=== PATIENT | female | born 1985 | race Caucasian/White ===

== ENCOUNTER 2022-08-19 10:04 | Outpatient (OUT) | payer OTHER, SELFPAY ==
--- NOTE | 2022-08-19 10:16 | US_ITS ---
[address] [address] Patient Name: DANYELL ROSENBERG MRN: [id number] date: 1985 Sex: F Assigned Patient Location: US Current Patient Location: US Accession/Order Number: [id number] Exam Date: 08/19/2022 10:16 Report Date: 08/21/2022 10:40 At the request of: ROGERS HODGE Procedure: US OB growth EXAMINATION: US OB growth HISTORY: SIZE INCONSISTENT WITH DATES O26.849 COMPARISON: No relevant comparison available. FINDINGS: Heart Rate: 154.3 bpm Number: 1.0 Position: CEPHALIC Amniotic Fluid Volume: 14.8 cm Maximum Vertical Pocket: 4.2 cm cm BIOMETRY: BPD: 8.4 cm cm; 33 weeks 5 days ; 68% HC: 30.3 cmcm; 33 weeks 4 days; 32% AC: 30.1 cm cm; 34 weeks 0 days; 83% FL: 6.3 cm cm; 32 weeks 4 days; 32% EFW: 2228.4 grams; 64% FL/AC: 21.0 FL/BPD: 75.4 HC/AC: 1.0 GESTATIONAL AGE: Age by EDC: 32 weeks 6 days MIL by EDC: 10/08/2022 Age by US: 33 weeks 3 days MIL by US: 10/04/2022 IMPRESSION: 1. Single live intrauterine with growth detailed above. Electronically authenticated by: HALEY RABAGO Date: 08/21/2022 10:40
== END 2022-08-19 10:05 ==
LOC: US 10:08
PROVIDERS: PCP Obstetrics & Gynecology; Visit Provider Obstetrics & Gynecology
DX: O26.893 Other specified pregnancy related conditions, third trimester (principal); Z3A.33 33 weeks gestation of pregnancy
CPT/HCPCS: 76816

== ENCOUNTER 2022-09-11 08:58 | Outpatient (OUT) | payer OTHER, SELFPAY ==
--- NOTE | 2022-09-11 09:01 | US_ITS ---
[place] [id number] Patient Name: DANYELL ROSENBERG MRN: [id number] date: 1985 Sex: F Assigned Patient Location: US Current Patient Location: US Accession/Order Number: [id number] Exam Date: 09/11/2022 09:01 Report Date: 09/11/2022 21:20 At the request of: ROGERS HODGE Procedure: US OB growth EXAMINATION: US OB growth HISTORY: GDM COMPARISON: 08/19/2022 FINDINGS: position: Cephalic presentation, longitudinal lie Amniotic fluid: 12.7 cm, normal Largest fluid pocket: 5.7 cm Heart rate: 156 bpm BPD: 9.1 cm, 36 weeks 6 days, 79% Head circumference: 32.6 cm, 37 weeks 0 days, 39% Abdominal circumference: 33.1 cm, 37 weeks 0 days, 81% Femur length: 7.1 cm, 36 weeks 4 days, 58% Estimated weight: 3051 g, 6 lbs. 12 oz., 72% Clinical age: 36 weeks 1 day Clinical MIL: 10/08/2022 Ultrasound age: 36 weeks 6 days Ultrasound MIL: 10/03/2022 IMPRESSION: Normal interval growth Electronically authenticated by: CARIDAD DOBSON Date: 09/11/2022 21:20
== END 2022-09-11 08:59 | disposition home or self-care (01) ==
LOC: US 08:58
PROVIDERS: PCP Obstetrics & Gynecology; Visit Provider Obstetrics & Gynecology
DX: O09.523 Supervision of elderly multigravida, third trimester (principal); Z86.32 Personal history of gestational diabetes; Z3A.36 36 weeks gestation of pregnancy
CPT/HCPCS: 76816

== ENCOUNTER 2022-09-14 19:54 | Outpatient (REF) | payer OTHER, SELFPAY | END 2022-09-14 19:55 | disposition home or self-care (01) | LOC: LAB 19:54 | PROVIDERS: PCP Obstetrics & Gynecology; Visit Provider Obstetrics & Gynecology | DX: Z34.93 Encounter for supervision of normal pregnancy, unspecified, third trimester (principal) | CPT/HCPCS: 87081 ==

== ENCOUNTER 2022-09-16 10:46 | Outpatient (OUT) | payer OTHER, SELFPAY ==
--- NOTE | 2022-09-16 11:34 | US_ITS ---
[address] [address] Patient Name: DANYELL ROSENBERG MRN: [id number] date: 1985 Sex: F Assigned Patient Location: US Current Patient Location: Accession/Order Number: [id number] Exam Date: 09/16/2022 11:40 Report Date: 09/18/2022 10:21 At the request of: ROGERS HODGE Procedure: US OB BPP w non-stress EXAMINATION: US OB BPP w non-stress HISTORY: MULTIGRAVIDA OF ADVANCED MATERNAL AGE IN THIRD TRIMESTER COMPARISON: No relevant comparison available. TECHNIQUE: Ultrasound biophysical profile was performed in the radiology department. BREATHING MOVEMENTS: 2.0 GROSS BODY MOVEMENTS: 2.0 TONE: 2.0 QUALITATIVE AMNIOTIC FLUID VOLUME: 2.0 PRESENTATION: CEPHALIC HEART RATE: 128.6 bpm bpm. AMNIOTIC FLUID VOLUME: 10.7 cm GESTATIONAL AGE: 36 weeks 6 days CONCLUSION: Total biophysical profile score 8.0. Electronically authenticated by: HALEY RABAGO Date: 09/18/2022 10:21
== END 2022-09-16 10:47 | disposition home or self-care (01) ==
LOC: US 10:48
PROVIDERS: PCP Obstetrics & Gynecology; Visit Provider Obstetrics & Gynecology
DX: O09.523 Supervision of elderly multigravida, third trimester (principal); Z3A.00 Weeks of gestation of pregnancy not specified
CPT/HCPCS: 76818

== ENCOUNTER 2022-09-16 10:58 | Outpatient (OUT) | payer OTHER, SELFPAY | END 2022-09-16 12:10 | disposition home or self-care (01) | LOC: FBCO 10:58 → FBC 10:59 | PROVIDERS: PCP Obstetrics & Gynecology; Visit Provider Obstetrics & Gynecology | DX: O09.529 Supervision of elderly multigravida, unspecified trimester (principal); Z3A.00 Weeks of gestation of pregnancy not specified | CPT/HCPCS: 59025 ==

== ENCOUNTER 2022-09-20 18:39 | Outpatient (OUT) | payer OTHER, SELFPAY ==
[2022-09-20 18:51] VITALS: TEMP 36.3
[2022-09-20 18:52] VITALS: BP 123/68; PULSE 89
== END 2022-09-20 19:20 | disposition home or self-care (01) ==
LOC: FBCO 18:40 → FBC 18:45
PROVIDERS: PCP Obstetrics & Gynecology; Visit Provider Obstetrics & Gynecology
DX: O09.523 Supervision of elderly multigravida, third trimester (principal); O24.419 Gestational diabetes mellitus in pregnancy, unspecified control; Z3A.00 Weeks of gestation of pregnancy not specified
CPT/HCPCS: 59025

== ENCOUNTER 2022-09-23 10:05 | Outpatient (OUT) | payer OTHER, SELFPAY ==
--- NOTE | 2022-09-23 10:14 | US_ITS ---
[address] [address] Patient Name: DANYELL ROSENBERG MRN: [id number] date: 1985 Sex: F Assigned Patient Location: [facility] Current Patient Location: Accession/Order Number: [id number] Exam Date: 09/23/2022 10:14 Report Date: 09/24/2022 01:12 At the request of: ROGERS HODGE Procedure: US OB BPP w non-stress EXAMINATION: US OB BPP w non-stress HISTORY: Multigravida of advanced maternal age in third trimester COMPARISON: Ultrasound biophysical 09/16/2022 TECHNIQUE: Ultrasound biophysical profile was performed in the radiology department. BREATHING MOVEMENTS: 2.0 GROSS BODY MOVEMENTS: 2.0 TONE: 2.0 QUALITATIVE AMNIOTIC FLUID VOLUME: 2.0 PRESENTATION: Cephalic HEART RATE: 146.7 bpm bpm. AMNIOTIC FLUID VOLUME: 11.3 cm GESTATIONAL AGE: 37 weeks 6 days CONCLUSION: Total biophysical profile score 8.0. Electronically authenticated by: HALEY RABAGO Date: 09/24/2022 01:12
[2022-09-23 10:41] VITALS: BP 111/65; PULSE 83
== END 2022-09-23 10:10 | disposition home or self-care (01) ==
LOC: US 10:13 → FBC 10:15
PROVIDERS: PCP Obstetrics & Gynecology; Visit Provider Obstetrics & Gynecology
DX: O09.523 Supervision of elderly multigravida, third trimester (principal); Z3A.37 37 weeks gestation of pregnancy
CPT/HCPCS: 76818

== ENCOUNTER 2022-09-25 08:45 | Outpatient (RCR) | payer OTHER, SELFPAY ==
[2022-10-07 10:34] VITALS: BP 102/55; PULSE 87
== END 2022-10-07 11:52 | disposition home or self-care (01) ==
LOC: FBCO 08:45
PROVIDERS: Visit Provider Obstetrics & Gynecology
DX: O09.523 Supervision of elderly multigravida, third trimester (principal)

== ENCOUNTER 2022-09-27 17:52 | Outpatient (OUT) | payer OTHER, SELFPAY ==
[2022-09-27 18:01] VITALS: BP 130/78; PULSE 99
== END 2022-09-27 18:27 | disposition home or self-care (01) ==
LOC: FBCO 17:52 → FBC 17:55
PROVIDERS: Visit Provider Obstetrics & Gynecology
DX: O09.523 Supervision of elderly multigravida, third trimester (principal)
CPT/HCPCS: 59025

== ENCOUNTER 2022-09-30 09:12 | Outpatient (OUT) | payer OTHER, SELFPAY ==
--- NOTE | 2022-09-30 09:05 | US_ITS ---
[address] [address] Patient Name: DANYELL ROSENBERG MRN: [id number] date: 1985 Sex: F Assigned Patient Location: US Current Patient Location: Accession/Order Number: [id number] Exam Date: 09/30/2022 09:06 Report Date: 10/02/2022 07:45 At the request of: ROGERS HODGE Procedure: US OB BPP w non-stress EXAMINATION: US OB BPP w non-stress HISTORY: MULTIGRAVIDA OF ADVANCED MATERNAL AGE COMPARISON: No relevant comparison available. TECHNIQUE: Ultrasound biophysical profile was performed in the radiology department. FINDINGS: BREATHING MOVEMENTS: 2.0 GROSS BODY MOVEMENTS: 2.0 TONE: 2.0 QUALITATIVE AMNIOTIC FLUID VOLUME: 2.0 PRESENTATION: CEPHALIC HEART RATE: 152.5 bpm H.B./min AMNIOTIC FLUID VOLUME: 12.2 cm cm GESTATIONAL AGE: 38 weeks 6 days CONCLUSION: Total biophysical profile score: 8.0 Electronically authenticated by: CARIDAD DOBSON Date: 10/02/2022 07:45
[2022-09-30 09:28] VITALS: BP 131/67; PULSE 96
== END 2022-09-30 10:11 | disposition home or self-care (01) ==
LOC: US 09:13 → FBC 09:14
PROVIDERS: Visit Provider Obstetrics & Gynecology
DX: O09.523 Supervision of elderly multigravida, third trimester (principal); Z3A.38 38 weeks gestation of pregnancy
CPT/HCPCS: 59025; 76818

== ENCOUNTER 2022-10-04 17:48 | Outpatient (OUT) | payer OTHER, SELFPAY ==
[2022-10-04 17:55] VITALS: BP 100/51; PULSE 92
== END 2022-10-04 18:20 | disposition home or self-care (01) ==
LOC: FBCO 17:48 → FBC 17:49
PROVIDERS: Visit Provider Obstetrics & Gynecology
DX: O09.523 Supervision of elderly multigravida, third trimester (principal)
CPT/HCPCS: 59025

== ENCOUNTER 2022-10-07 14:37 | Outpatient (OUT) | payer OTHER, SELFPAY ==
--- NOTE | 2022-10-07 10:52 | US_ITS ---
[address] [address] Patient Name: DANYELL ROSENBERG MRN: [id number] date: 1985 Sex: F Assigned Patient Location: US Current Patient Location: [facility] Accession/Order Number: [id number] Exam Date: 10/07/2022 10:55 Report Date: 10/09/2022 09:32 At the request of: ROGERS HODGE Procedure: US OB BPP w non-stress EXAMINATION: US OB BPP w non-stress HISTORY: ADVANCED MATERNAL AGE COMPARISON: Ultrasound OB biophysical 09/30/2022 TECHNIQUE: Ultrasound biophysical profile was performed in the radiology department. BREATHING MOVEMENTS: 2 GROSS BODY MOVEMENTS: 2 TONE: 2 QUALITATIVE AMNIOTIC FLUID VOLUME: 2 PRESENTATION: CEPHALIC HEART RATE: 145.2 bpm bpm. AMNIOTIC FLUID VOLUME: 8.6 cm GESTATIONAL AGE: 39 weeks 6 days CONCLUSION: 1. Total biophysical profile score 8. 2. Amniotic fluid volume approaches lower limits of normal. Electronically authenticated by: HALEY RABAGO Date: 10/09/2022 09:32
== END 2022-10-07 14:38 | disposition home or self-care (01) ==
LOC: US 10-11 14:37
PROVIDERS: Visit Provider Obstetrics & Gynecology
DX: O09.523 Supervision of elderly multigravida, third trimester (principal); Z86.32 Personal history of gestational diabetes; Z3A.39 39 weeks gestation of pregnancy
CPT/HCPCS: 76818

== ENCOUNTER 2022-10-09 05:16 | Observation (INO) | payer OTHER, SELFPAY ==
[2022-10-09 05:44] VITALS: BP 106/51; PULSE 89
[2022-10-09 05:46] VITALS: RESP 16
[2022-10-09 05:49] LABS: Hematocrit 30.2 % (36.0-48.0); Mean Corpuscular HGB Conc 33.1 g/dL (29.9-35.2); Mean Corpuscular Hemoglobin 25.1 pg (26.7-34.0); Mean Corpuscular Volume 75.9 fL (81.0-99.0); Mean Platelet Volume 11.2 fL (9.5-13.5); Platelet Count 284 10^3/uL (150-450); Red Blood Count 3.98 10^6/uL (4.20-5.40); Red Cell Distribution Width 14.6 % (11.0-15.0); White Blood Count 7.9 10^3/uL (4.0-11.0)
[2022-10-09 05:57] LABS: Amphetamine Screen Urine NEGATIVE (NEGATIVE); Barbiturates Screen Urine NEGATIVE (NEGATIVE); Benzodiazepines Screen Urine NEGATIVE (NEGATIVE); Buprenorphine Screen Urine NEGATIVE (NEGATIVE); Cannabinoid Screen Urine NEGATIVE (NEGATIVE); Cocaine Screen Urine NEGATIVE (NEGATIVE); Methadone Screen Urine NEGATIVE (NEGATIVE); Methamphetamines Screen Urine NEGATIVE (NEGATIVE); Opiate Screen Urine NEGATIVE (NEGATIVE); Oxycodone Screen Urine NEGATIVE (NEGATIVE); Phencyclidine Screen Urine NEGATIVE (NEGATIVE); Tricyclic Antidepressant Urine NEGATIVE (NEGATIVE)
[2022-10-09] MEDS: 0.9 % SODIUM CHLORIDE 1,000 ML 125 ML IV (06:08)
--- NOTE | 2022-10-09 08:00 | W.PC.ACHO ---
Registration Status: ADM IN Primary Language: Kazakh Preferred Language: Kazakh Report given 0745. Active Medications Generic Name Dose Route Start Last Admin Trade Name Lena PRN Reason Stop Dose Admin Carboprost Tromethamine 250 mcg 10/09/22 05:22 Carboprost Tromethamine 250 Mcg/Ml 1 Ml Vial IM Q15M PRN Bleeding Sodium Chloride 1,000 mls @ 125 mls/hr 10/09/22 05:30 10/09/22 06:08 Sodium Chloride 0.9% 1,000 Ml IV 125 mls/hr .Q8H EMILY Administration Oxytocin 20 unit/ Sodium 1,002 mls @ 125 mls/hr 10/09/22 05:30 Chloride IV Q8H PRN Physician order Protocol Lidocaine 5 ml 10/09/22 05:22 Lidocaine Viscous 2% 15 Ml Topical Solution TOPICAL .prn PRN Pain Lidocaine 1 ml 10/09/22 05:22 Lidocaine Hcl 1% 200 Mg/20 Ml Mdv INJ .PRN PRN Pain Methylergonovine Maleate 0.2 mg 10/09/22 05:22 Methylergonovine Maleate 0.2 Mg Tablet PO Q4H PRN Uterine Contractility/Contract Methylergonovine Maleate 0.2 mg 10/09/22 05:22 Methylergonovine Maleate 0.2 Mg/Ml Ampule IM ONCE PRN Uterine Contractility/Contract Misoprostol 600 mcg 10/09/22 05:22 Misoprostol 100 Mcg Tablet PO ONCE PRN Uterine Bleeding Misoprostol 800 mcg 10/09/22 05:22 Misoprostol 100 Mcg Tablet SL ONCE PRN Uterine Bleeding Misoprostol 1,000 mcg 10/09/22 05:22 Misoprostol 100 Mcg Tablet [place] ONCE PRN Uterine Bleeding Ondansetron HCl 4 mg 10/09/22 05:22 Ondansetron Pf 4 Mg/2 Ml Vial IV Q6H PRN Nausea And Vomiting Ondansetron HCl 4 mg 10/09/22 05:22 Ondansetron 4 Mg Rapdis Tablet SL Q6H PRN Nausea And Vomiting Oxytocin 10 unit 10/09/22 05:22 Oxytocin 100 Unit/10 Ml Vial IM ONCE PRN Uterine Bleeding Diet Category Date Time Status Regular Consistency Diet Diet 10/09/22 Breakfast Active Consults Category Date Time Status Consult to Anesthesiology Routine Cons 10/09/22 Ordered Neurology Patient orientation (short person,place,time,situation list)
--- NOTE | 2022-10-09 10:11 | PC.NURSE ---
0730 Report received, pt relaxing in bed on side. Discussed plan and different options for monitoring and possible monitoring while upright if on pitocin
--- NOTE | 2022-10-09 10:15 | PC.NURSE ---
1000 IV NS infused, iv to saline lock and pt into whirlpool tub. water temp 100.9. states feeling occasional ctxs
[2022-10-09 10:56] VITALS: BP 98/53; PULSE 96
--- NOTE | 2022-10-09 12:50 | PC.NURSE ---
1235 pt discusses plan of care and opts for discharge, pt states not having ctxs, saline lock removed and scheduled for BPP and NSt
== END 2022-10-09 14:20 | disposition home or self-care (01) ==
LOC: FBC 13:12
PROVIDERS: Admitting Provider Obstetrics & Gynecology; Visit Provider Obstetrics & Gynecology
DX: O47.9 False labor, unspecified (principal); Z3A.00 Weeks of gestation of pregnancy not specified
CPT/HCPCS: 36415; 80307; 85027; 86850; 86900; 86901; G0378; G0379

== ENCOUNTER 2022-10-12 06:03 | Inpatient (IN) | payer OTHER, SELFPAY ==
[2022-10-12] VITALS (22 sets, daily range): BP systolic 108–135; BP diastolic 57–89; PULSE 64–96; RESP 16–18; TEMP 35.3–36.8
--- NOTE | 2022-10-12 07:14 | W.PC.ACHO ---
Registration Status: ADM IN Primary Language: Norwegian Preferred Language: Norwegian Report given 0700. Active Medications Generic Name Dose Route Start Last Admin Trade Name Lena PRN Reason Stop Dose Admin Carboprost Tromethamine 250 mcg 10/12/22 06:06 Carboprost Tromethamine 250 Mcg/Ml 1 Ml Vial IM Q15M PRN Bleeding Sodium Chloride 1,000 mls @ 125 mls/hr 10/12/22 06:15 Sodium Chloride 0.9% 1,000 Ml IV .Q8H EMILY Oxytocin 20 unit/ Sodium 1,002 mls @ 125 mls/hr 10/12/22 07:15 Chloride IV 10/12/22 15:14 Q8H PRN Delivery Protocol Lidocaine 5 ml 10/12/22 06:06 Lidocaine Viscous 2% 15 Ml Topical Solution TOPICAL DIRECTED PRN Pain Lidocaine 1 ml 10/12/22 06:06 Lidocaine Hcl 1% 200 Mg/20 Ml Mdv INJ DIRECTED PRN Pain Methylergonovine Maleate 0.2 mg 10/12/22 06:06 Methylergonovine Maleate 0.2 Mg Tablet PO Q4H PRN Uterine Contractility/Contract Methylergonovine Maleate 0.2 mg 10/12/22 06:06 Methylergonovine Maleate 0.2 Mg/Ml Ampule IM ONCE PRN Uterine Contractility/Contract Misoprostol 600 mcg 10/12/22 06:06 Misoprostol 100 Mcg Tablet PO ONCE PRN Uterine Bleeding Misoprostol 800 mcg 10/12/22 06:06 Misoprostol 100 Mcg Tablet SL ONCE PRN Uterine Bleeding Misoprostol 1,000 mcg 10/12/22 06:06 Misoprostol 100 Mcg Tablet FL ONCE PRN Uterine Bleeding Ondansetron HCl 4 mg 10/12/22 06:06 Ondansetron Pf 4 Mg/2 Ml Vial IV Q6H PRN Nausea And Vomiting Ondansetron HCl 4 mg 10/12/22 06:06 Ondansetron 4 Mg Rapdis Tablet SL Q6H PRN Nausea And Vomiting Oxytocin 10 unit 10/12/22 06:06 Oxytocin 100 Unit/10 Ml Vial IM ONCE PRN Uterine Bleeding Diet Category Date Time Status Regular Consistency Diet Diet 10/12/22 Breakfast Active Neurology Patient orientation (short person,place,time,situation list)
--- NOTE | 2022-10-12 09:22 | PC.NURSE ---
[address] snell in room, discusses plan of care and pt agrees to AROM with few hours of natural stimulation of labor with option for pitocin if labor does not ensue, no ctxs currently
--- NOTE | 2022-10-12 09:24 | PC.NURSE ---
0830 on birthing ball and using electric breast pump to stimulate labor, denies needs
[2022-10-12] MEDS: CALCIUM CARBONATE 500 MG (200MG ELEMENTAL) TAB CHEW PO (14:39)
[2022-10-12] MEDS: 0.9 % SODIUM CHLORIDE 1,000 ML 1000 ML IV (17:22)
--- NOTE | 2022-10-12 19:30 | W.PC.ACHO ---
Registration Status: ADM IN Primary Language: Citizen Of [place] Preferred Language: Citizen Of [place] Active Medications report given Generic Name Dose Route Start Last Admin Trade Name Lena PRN Reason Stop Dose Admin Calcium Carbonate 500 mg 10/12/22 15:00 10/12/22 14:39 Calcium Carbonate 500 Mg (200mg Elemental) Tab Chew PO 500 mg TID PRN Administration Abdominal Distention Carboprost Tromethamine 250 mcg 10/12/22 06:06 Carboprost Tromethamine 250 Mcg/Ml 1 Ml Vial IM Q15M PRN Bleeding Sodium Chloride 1,000 mls @ 125 mls/hr 10/12/22 06:15 Sodium Chloride 0.9% 1,000 Ml IV .Q8H EMILY Lidocaine 5 ml 10/12/22 06:06 Lidocaine Viscous 2% 15 Ml Topical Solution TOPICAL DIRECTED PRN Pain Lidocaine 1 ml 10/12/22 06:06 Lidocaine Hcl 1% 200 Mg/20 Ml Mdv INJ DIRECTED PRN Pain Methylergonovine Maleate 0.2 mg 10/12/22 06:06 Methylergonovine Maleate 0.2 Mg Tablet PO Q4H PRN Uterine Contractility/Contract Methylergonovine Maleate 0.2 mg 10/12/22 06:06 Methylergonovine Maleate 0.2 Mg/Ml Ampule IM ONCE PRN Uterine Contractility/Contract Misoprostol 600 mcg 10/12/22 06:06 Misoprostol 100 Mcg Tablet PO ONCE PRN Uterine Bleeding Misoprostol 800 mcg 10/12/22 06:06 Misoprostol 100 Mcg Tablet SL ONCE PRN Uterine Bleeding Misoprostol 1,000 mcg 10/12/22 06:06 Misoprostol 100 Mcg Tablet [place] ONCE PRN Uterine Bleeding Ondansetron HCl 4 mg 10/12/22 06:06 Ondansetron Pf 4 Mg/2 Ml Vial IV Q6H PRN Nausea And Vomiting Ondansetron HCl 4 mg 10/12/22 06:06 Ondansetron 4 Mg Rapdis Tablet SL Q6H PRN Nausea And Vomiting Oxytocin 10 unit 10/12/22 06:06 Oxytocin 100 Unit/10 Ml Vial IM ONCE PRN Uterine Bleeding Diet Category Date Time Status Regular Consistency Diet Diet 10/12/22 Breakfast Active Neurology Patient orientation (short person,place,time,situation list) Respiratory Lung sounds [Throughout] clear Cardiology Heart Sounds Strong
--- NOTE | 2022-10-12 20:22 | PM.OBPRCVD ---
Procedure Intrapartal events: None Induction method: artificial rupture of membranes Delivery augmentation: rupture of membranes and pitocin Delivery monitor: external FHT and external uterine Route of delivery: Episiotomy Description: none Laceration description: none Estimated blood loss (mL): 200 Anesthesia type: None Disposition: floor Infant Delivery date: 10/12/22 Gender: female presentation: vertex Placental delivery description: Spontaneous cord description: 3 Vessels
[2022-10-12] MEDS: IBUPROFEN 600 MG TABLET PO (21:33)
[2022-10-13 03:42] VITALS: BP 136/77; PULSE 56; RESP 16; TEMP 37.3
[2022-10-13] MEDS: IBUPROFEN 600 MG TABLET PO ×4 (03:46→22:31)
[2022-10-13] MEDS: CALCIUM CARBONATE 500 MG (200MG ELEMENTAL) TAB CHEW PO (03:46)
[2022-10-13 06:20] LABS: Basophils Percent Auto 0.1 % (0.2-2.0); Hematocrit 28.6 % (36.0-48.0); Hemoglobin 9.1 g/dL (12.0-16.0); Immature Granulocytes Abs Auto 0.08 10^3/uL (0.00-0.03); Immature Granulocytes Pct Auto 0.5 % (0.0-0.5); Lymphocytes Absolute Auto 1.4 10^3/uL (1.2-3.8); Lymphocytes Percent Auto 9.1 % (20.5-60.0); Mean Corpuscular HGB Conc 31.8 g/dL (29.9-35.2); Mean Corpuscular Hemoglobin 24.7 pg (26.7-34.0); Mean Corpuscular Volume 77.7 fL (81.0-99.0); Mean Platelet Volume 11.3 fL (9.5-13.5); Monocytes Absolute Auto 0.9 10^3/uL (0.3-0.8); Monocytes Percent Auto 5.5 % (1.7-12.0); Neutrophils Absolute Auto 13.4 10^3/uL (1.4-6.5); Neutrophils Percent Auto 84.8 % (43.0-75.0); Platelet Count 268 10^3/uL (150-450); Red Blood Count 3.68 10^6/uL (4.20-5.40); Red Cell Distribution Width 14.9 % (11.0-15.0); White Blood Count 15.8 10^3/uL (4.0-11.0)
--- NOTE | 2022-10-13 07:29 | W.PC.ACHO ---
Registration Status: ADM IN Primary Language: Luxembourger Preferred Language: Luxembourger Report given to Edgar Ndiaye RN Active Medications Generic Name Dose Route Start Last Admin Trade Name Freq PRN Reason Stop Dose Admin Acetaminophen 650 mg 10/12/22 20:19 Acetaminophen 325 Mg Tablet PO Q6H PRN Mild Pain Al Hydroxide/Mg Hydroxide 2,400 mg 10/12/22 20:19 Magnesium Hydroxide 2,400 Mg/10 Ml Oral.Susp PO Q6H PRN Dyspepsia Benzocaine/Menthol 1 applic 10/12/22 20:19 Benzocaine/Menthol 85 Gram Bottle TOPICAL DIRECTED PRN Pain Calcium Carbonate 500 mg 10/12/22 15:00 10/13/22 03:46 Calcium Carbonate 500 Mg (200mg Elemental) Tab Chew PO 500 mg TID PRN Administration Abdominal Distention Carboprost Tromethamine 250 mcg 10/12/22 06:06 Carboprost Tromethamine 250 Mcg/Ml 1 Ml Vial IM Q15M PRN Bleeding Docusate Sodium 100 mg 10/13/22 09:00 Docusate Sodium 100 Mg Capsule PO BID EMILY Sodium Chloride 1,000 mls @ 125 mls/hr 10/12/22 06:15 Sodium Chloride 0.9% 1,000 Ml IV .Q8H EMILY Ibuprofen 600 mg 10/12/22 20:19 10/13/22 03:46 Ibuprofen 600 Mg Tablet PO 600 mg Q6H PRN Administration Moderate Pain Lidocaine 5 ml 10/12/22 06:06 Lidocaine Viscous 2% 15 Ml Topical Solution TOPICAL DIRECTED PRN Pain Lidocaine 1 ml 10/12/22 06:06 Lidocaine Hcl 1% 200 Mg/20 Ml Mdv INJ DIRECTED PRN Pain Methylergonovine Maleate 0.2 mg 10/12/22 06:06 Methylergonovine Maleate 0.2 Mg Tablet PO Q4H PRN Uterine Contractility/Contract Methylergonovine Maleate 0.2 mg 10/12/22 06:06 Methylergonovine Maleate 0.2 Mg/Ml Ampule IM ONCE PRN Uterine Contractility/Contract Misoprostol 600 mcg 10/12/22 06:06 Misoprostol 100 Mcg Tablet PO ONCE PRN Uterine Bleeding Misoprostol 800 mcg 10/12/22 06:06 Misoprostol 100 Mcg Tablet SL ONCE PRN Uterine Bleeding Misoprostol 1,000 mcg 10/12/22 06:06 Misoprostol 100 Mcg Tablet [place] ONCE PRN Uterine Bleeding Ondansetron HCl 4 mg 10/12/22 06:06 Ondansetron Pf 4 Mg/2 Ml Vial IV Q6H PRN Nausea And Vomiting Ondansetron HCl 4 mg 10/12/22 06:06 Ondansetron 4 Mg Rapdis Tablet SL Q6H PRN Nausea And Vomiting Oxytocin 10 unit 10/12/22 06:06 Oxytocin 100 Unit/10 Ml Vial IM ONCE PRN Uterine Bleeding Senna 17.2 mg 10/12/22 20:00 Sennosides 8.6 Mg Tablet PO QHS PRN Constipation Simethicone 80 mg 10/12/22 20:19 Simethicone 80 Mg Tab.Chew PO QID PRN Abdominal Distention Temazepam 15 mg 10/12/22 20:00 Temazepam 15 Mg Capsule PO BEDTIME PRN Sleep Witch Yessy/Glycerin 1 each 10/12/22 20:19 Glycerin/Witch Yessy 1 Each Jar TOPICAL DIRECTED PRN Pain Diet Category Date Time Status Regular Consistency Diet Diet 10/12/22 Breakfast Active Regular Consistency Diet Diet 10/13/22 Breakfast Active Neurology Mary coma scale total score 15 Respiratory Lung sounds [Throughout] clear Lung sounds [Throughout] clear Oxygen Delivery Method Room Air Cardiology Heart Sounds Strong
[2022-10-13 08:46] VITALS: BP 120/70; PULSE 72; RESP 16; TEMP 36.7
[2022-10-13] MEDS: DOCUSATE SODIUM 100 MG CAPSULE PO ×2 (08:46→22:31)
--- NOTE | 2022-10-13 12:14 | PM.OBPN ---
OB - PN: Subj Subjective Patient comments: no complaints Kegley feeding status: exclusively Exam Constitutional Vital Signs, click to edit/add: Last Vital Signs Temp 98.1 F 10/13/22 08:46 Pulse 72 10/13/22 08:46 Resp 16 10/13/22 08:46 BP 120/70 10/13/22 08:46 O2 Del Method Room Air 10/13/22 08:46 Common normals: no apparent distress General appearance: cooperative and comfortable Orientation/consciousness: Yes awake and Yes oriented to person HENMT Common normals: normocephalic and head/scalp atraumatic Eye Common normals: PERRL Pupil: accommodation reflex normal Neck & C-Spine Common normals: full ROM Respiratory Common normals: normal respiratory effort Auscultation: clear to auscultation bilaterally Back & Pelvis Common normals: no CVA tenderness Extremity Common normals: full ROM Neuro Common normals: CN's II-XII intact bilaterally Sensorium/orientation: awake, alert and oriented to person Psych Common normals: mental status grossly normal and thought process normal Results Labs Labs: Short CBC 10/13/22 Range/Units 06:08 WBC 15.8 H (4.0-11.0) 10^3/uL Hgb 9.1 L (12.0-16.0) g/dL Hct 28.6 L (36.0-48.0) % Plt Count 268 (150-450) 10^3/uL OB - PN: A/P Plan - Vaginal Delivery Plan: routine care Time Spent with Patient Time: Total time spent is greater than 50% in coordination of care (as documented) at patient's floor/unit and/or counseling patient: Total time spent with greater than 50% in coordination of care (as documented) at patient's floor/unit and/or counseling patient: less than 15 minutes
[2022-10-13 16:09] VITALS: BP 124/70; PULSE 71; RESP 18; TEMP 36.8
--- NOTE | 2022-10-13 19:27 | W.PC.ACHO ---
Registration Status: ADM IN Primary Language: Serbian Preferred Language: Serbian Active Medications Generic Name Dose Route Start Last Admin Trade Name Lena PRN Reason Stop Dose Admin Acetaminophen 650 mg 10/12/22 20:19 Acetaminophen 325 Mg Tablet PO Q6H PRN Mild Pain Al Hydroxide/Mg Hydroxide 2,400 mg 10/12/22 20:19 Magnesium Hydroxide 2,400 Mg/10 Ml Oral.Susp PO Q6H PRN Dyspepsia Benzocaine/Menthol 1 applic 10/12/22 20:19 Benzocaine/Menthol 85 Gram Bottle TOPICAL DIRECTED PRN Pain Calcium Carbonate 500 mg 10/12/22 15:00 10/13/22 03:46 Calcium Carbonate 500 Mg (200mg Elemental) Tab Chew PO 500 mg TID PRN Administration Abdominal Distention Carboprost Tromethamine 250 mcg 10/12/22 06:06 Carboprost Tromethamine 250 Mcg/Ml 1 Ml Vial IM Q15M PRN Bleeding Docusate Sodium 100 mg 10/13/22 09:00 10/13/22 08:46 Docusate Sodium 100 Mg Capsule PO 100 mg BID EMILY Administration Sodium Chloride 1,000 mls @ 125 mls/hr 10/12/22 06:15 Sodium Chloride 0.9% 1,000 Ml IV .Q8H EMILY Ibuprofen 600 mg 10/12/22 20:19 10/13/22 16:09 Ibuprofen 600 Mg Tablet PO 600 mg Q6H PRN Administration Moderate Pain Lidocaine 5 ml 10/12/22 06:06 Lidocaine Viscous 2% 15 Ml Topical Solution TOPICAL DIRECTED PRN Pain Lidocaine 1 ml 10/12/22 06:06 Lidocaine Hcl 1% 200 Mg/20 Ml Mdv INJ DIRECTED PRN Pain Methylergonovine Maleate 0.2 mg 10/12/22 06:06 Methylergonovine Maleate 0.2 Mg Tablet PO Q4H PRN Uterine Contractility/Contract Methylergonovine Maleate 0.2 mg 10/12/22 06:06 Methylergonovine Maleate 0.2 Mg/Ml Ampule IM ONCE PRN Uterine Contractility/Contract Misoprostol 600 mcg 10/12/22 06:06 Misoprostol 100 Mcg Tablet PO ONCE PRN Uterine Bleeding Misoprostol 800 mcg 10/12/22 06:06 Misoprostol 100 Mcg Tablet SL ONCE PRN Uterine Bleeding Misoprostol 1,000 mcg 10/12/22 06:06 Misoprostol 100 Mcg Tablet [place] ONCE PRN Uterine Bleeding Ondansetron HCl 4 mg 10/12/22 06:06 Ondansetron Pf 4 Mg/2 Ml Vial IV Q6H PRN Nausea And Vomiting Ondansetron HCl 4 mg 10/12/22 06:06 Ondansetron 4 Mg Rapdis Tablet SL Q6H PRN Nausea And Vomiting Oxytocin 10 unit 10/12/22 06:06 Oxytocin 100 Unit/10 Ml Vial IM ONCE PRN Uterine Bleeding Senna 17.2 mg 10/12/22 20:00 Sennosides 8.6 Mg Tablet PO QHS PRN Constipation Simethicone 80 mg 10/12/22 20:19 Simethicone 80 Mg Tab.Chew PO QID PRN Abdominal Distention Temazepam 15 mg 10/12/22 20:00 Temazepam 15 Mg Capsule PO BEDTIME PRN Sleep Witch Yessy/Glycerin 1 each 10/12/22 20:19 Glycerin/Witch Yessy 1 Each Jar TOPICAL DIRECTED PRN Pain Diet Category Date Time Status Regular Consistency Diet Diet 10/13/22 Breakfast Active Neurology [place] coma scale total score 15 Respiratory Lung sounds [Throughout] clear Lung sounds [Throughout] clear Oxygen Delivery Method Room Air Oxygen Delivery Method Room Air Oxygen Delivery Method Room Air
[2022-10-13 22:27] VITALS: BP 100/50; PULSE 83
--- NOTE | 2022-10-14 07:14 | W.PC.ACHO ---
Registration Status: ADM IN Primary Language: Tristanian Preferred Language: Tristanian Active Medications Generic Name Dose Route Start Last Admin Trade Name Lena PRN Reason Stop Dose Admin Acetaminophen 650 mg 10/12/22 20:19 Acetaminophen 325 Mg Tablet PO Q6H PRN Mild Pain Al Hydroxide/Mg Hydroxide 2,400 mg 10/12/22 20:19 Magnesium Hydroxide 2,400 Mg/10 Ml Oral.Susp PO Q6H PRN Dyspepsia Benzocaine/Menthol 1 applic 10/12/22 20:19 Benzocaine/Menthol 85 Gram Bottle TOPICAL DIRECTED PRN Pain Calcium Carbonate 500 mg 10/12/22 15:00 10/13/22 03:46 Calcium Carbonate 500 Mg (200mg Elemental) Tab Chew PO 500 mg TID PRN Administration Abdominal Distention Carboprost Tromethamine 250 mcg 10/12/22 06:06 Carboprost Tromethamine 250 Mcg/Ml 1 Ml Vial IM Q15M PRN Bleeding Docusate Sodium 100 mg 10/13/22 09:00 10/13/22 22:31 Docusate Sodium 100 Mg Capsule PO 100 mg BID EMILY Administration Sodium Chloride 1,000 mls @ 125 mls/hr 10/12/22 06:15 Sodium Chloride 0.9% 1,000 Ml IV .Q8H EMILY Ibuprofen 600 mg 10/12/22 20:19 10/13/22 22:31 Ibuprofen 600 Mg Tablet PO 600 mg Q6H PRN Administration Moderate Pain Lidocaine 5 ml 10/12/22 06:06 Lidocaine Viscous 2% 15 Ml Topical Solution TOPICAL DIRECTED PRN Pain Lidocaine 1 ml 10/12/22 06:06 Lidocaine Hcl 1% 200 Mg/20 Ml Mdv INJ DIRECTED PRN Pain Methylergonovine Maleate 0.2 mg 10/12/22 06:06 Methylergonovine Maleate 0.2 Mg Tablet PO Q4H PRN Uterine Contractility/Contract Methylergonovine Maleate 0.2 mg 10/12/22 06:06 Methylergonovine Maleate 0.2 Mg/Ml Ampule IM ONCE PRN Uterine Contractility/Contract Misoprostol 600 mcg 10/12/22 06:06 Misoprostol 100 Mcg Tablet PO ONCE PRN Uterine Bleeding Misoprostol 800 mcg 10/12/22 06:06 Misoprostol 100 Mcg Tablet SL ONCE PRN Uterine Bleeding Misoprostol 1,000 mcg 10/12/22 06:06 Misoprostol 100 Mcg Tablet MD ONCE PRN Uterine Bleeding Ondansetron HCl 4 mg 10/12/22 06:06 Ondansetron Pf 4 Mg/2 Ml Vial IV Q6H PRN Nausea And Vomiting Ondansetron HCl 4 mg 10/12/22 06:06 Ondansetron 4 Mg Rapdis Tablet SL Q6H PRN Nausea And Vomiting Oxytocin 10 unit 10/12/22 06:06 Oxytocin 100 Unit/10 Ml Vial IM ONCE PRN Uterine Bleeding Senna 17.2 mg 10/12/22 20:00 Sennosides 8.6 Mg Tablet PO QHS PRN Constipation Simethicone 80 mg 10/12/22 20:19 Simethicone 80 Mg Tab.Chew PO QID PRN Abdominal Distention Temazepam 15 mg 10/12/22 20:00 Temazepam 15 Mg Capsule PO BEDTIME PRN Sleep Witch Yessy/Glycerin 1 each 10/12/22 20:19 Glycerin/Witch Yessy 1 Each Jar TOPICAL DIRECTED PRN Pain Diet Category Date Time Status Regular Consistency Diet Diet 10/13/22 Breakfast Active Neurology [place] coma scale total score 15 Respiratory Lung sounds [Throughout] clear Lung sounds [Throughout] clear Oxygen Delivery Method Room Air Oxygen Delivery Method Room Air Oxygen Delivery Method Room Air Cardiology Heart Sounds Regular Renal Bladder Pattern Continent
[2022-10-14 08:26] VITALS: BP 125/85; PULSE 82
[2022-10-14 08:30] VITALS: BP 125/85; PULSE 82; RESP 16; TEMP 36.6
[2022-10-14] MEDS: IBUPROFEN 600 MG TABLET PO (08:30)
[2022-10-14] MEDS: DOCUSATE SODIUM 100 MG CAPSULE PO (08:30)
--- NOTE | 2022-10-14 09:42 | PM.OBDS ---
DS: Providers Provider Date of admission: 10/12/22 06:03 Primary care physician: Non-Staff Physician, Admitting clinician: You Ramirez Attending physician on discharge: Rosalba Aldrich DS: Diagnosis Discharge Diagnosis (1) Normal vaginal delivery: Assessment and plan: uncomplicated vaginal delivery. normal course. no issues or complaints Plan instructions given follow up in six weeks for post appointment call in interim for problem or concern OB - DS: Summary Hospital Course Hospital Course: uncomplicated Time spent discussing smoking cessation with patient: 3 to 10 minutes Peripartum Data - Vaginal Delivery Laceration description: none Complications complications: none Infant Delivery method: spontaneous vaginal delivery Gender: female Discharge plan: home Status at Discharge Functional status at discharge: independent ambulation Overall status at discharge: patient is back to baseline Time Spent with Patient Time attestation: Total time spent providing and/or coordinating discharge services: Time spent: less than 30 minutes Exam Narrative Exam Narrative: nonfocal medical exam breasts soft, is breast feeding no repair normal vital signs Constitutional Vital Signs, click to edit/add: Last Vital Signs Temp 97.9 F 10/14/22 08:30 Pulse 82 10/14/22 08:30 Resp 16 10/14/22 08:30 BP 125/85 10/14/22 08:30 O2 Del Method Room Air 10/14/22 08:30 Discharge Plan Discharge Disposition: Home, Self-Care Condition: Good Assessment: normal clinical exam, requesting discharge, ready for discharge Plan of Treatment: follow up in six weeks for post exam sports bra 24/ if decides to stop breast feeding no swimming 4 weeks no intercourse 6 weeks general RSV and Covid precautions baby to peds within the week call for problem or concern Discharge Medications: Continued Complete 14 mg iron- 400 mcg tablet 1 tab PO DAILY Activity: resume usual activities as tolerated Diet: regular diet Patient Instructions: Vaginal Delivery (DC) Activity Restrictions/Additional Instructions: see above Forms: Portal Instructions Discharge location: home
== END 2022-10-14 11:00 | disposition home or self-care (01) | DRG 807 ==
PROVIDERS: Admitting Provider Obstetrics & Gynecology; Visit Provider Obstetrics & Gynecology
DX: O80 Encounter for full-term uncomplicated delivery (principal); Z37.0 Single live birth; Z86.32 Personal history of gestational diabetes; Z3A.00 Weeks of gestation of pregnancy not specified
CPT/HCPCS: 36415; 59050; 59410; 85025; 96374

== ENCOUNTER 2022-10-16 08:16 | Outpatient (RCR) | payer OTHER, SELFPAY ==
[2022-10-16 12:55] VITALS: BP 120/83; PULSE 80; RESP 18; TEMP 36.9; O2SAT 98
--- NOTE | 2022-10-16 12:57 | PC.NURSE ---
Pt noted to have large diameter nipple 28-30mm. Infant has difficulty taking entire nipple in for deep latch. Worked on laid back positioning and deeper latch achieved. Mom states has had difficulty with past children latching well also. States will continue to pump and protect supply. Will work for better latching until able to latch well on her own.
== END 2022-10-16 10:25 | disposition home or self-care (01) ==
LOC: FBCO 08:16
PROVIDERS: Visit Provider Obstetrics & Gynecology
DX: Z39.2 Encounter for routine postpartum follow-up (principal)

== ENCOUNTER 2022-10-18 08:07 | Outpatient (RCR) | payer OTHER, SELFPAY ==
--- NOTE | 2022-10-18 10:47 | PC.NURSE ---
Moira, and 6 day old daughter Delon arrive for support and weight check. Moira relates that latching is a bit easier in laid back position as baby is able to latch deeper with aid of gravity. Relates infant is still sleepy at the breast and has slow feeds of over 20-30 min per breast. Infant often not interested in sustaining latch at 2nd breast. Baby had 1 stool since 10/16/2022 visit, dark mustard/brown in color and large amount. Mom reports 5-6 wets yesterday and feels better latch has increased voids. weight is obtained and down 1.5 oz (40gms) from 10/16/2022. Mom reports frequent feeds on demand or at least every 2 hours. One 4 hour stretch taken during night when infant slept. Infant awake and alert, rooting on hands and interested in feed. LC with gloved finger assesses mouth and oral structures. 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 Infant holds tongue to floor of mouth when crying, outer edge/tip of tongue does curl upward. White residue/milk protein noted on back 2/3rds of tongue. attempts to extend tongue past gums with stimulation but does not extend past lips. Does not lateralized tongue well with gum stimulation. Palate is high arched. Mom familiar with tongue tie and impact on as 11 year old son struggled with and weaned at 3 months due to continued difficulty. Discussed pediatric dentist evaluation and referral as well of importance of suck exercises pre and post procedure as needed. Recommended body work with chiropractor in conjunction with oral therapy. Father asks multiple questions about oral restrictions and releases. Handouts given and questions answered to satisfaction. Parents engaged and interested in follow up referrals. Will return to this for weight check 10/23/2022. Parents assist in feeding plan. Recommendation of breastfeed both breast as able 15-20 min each side. Offer 15-30ml of pumped milk with each feeding to encourage adequate nutrition. Will call for evaluation of oral structures and start bodywork NUSRAT. Mother will pump after each feeding for supplemental milk for next feed. Dad will participate as needed to decrease workload on mother. to be seen by PCP on Sunday support available in the office as well. Aware to call for questions or concerns as needed. Parents verbalize understanding of feeding plan and follow up care.
== END 2022-10-18 10:45 | disposition home or self-care (01) ==
LOC: FBCO 08:07
PROVIDERS: Visit Provider Obstetrics & Gynecology
DX: Z39.2 Encounter for routine postpartum follow-up (principal)
CPT/HCPCS: G0463

== ENCOUNTER 2022-10-23 08:15 | Outpatient (RCR) | payer OTHER, SELFPAY ==
--- NOTE | 2022-10-23 12:46 | PC.NURSE ---
Moira and 11 day old Delon arrive for support. Was able to have infant evaluated by pediatric dentist Dr Wilkins with lip and tongue tie revision completed 10/19/2022. Parents have been doing stretches as recommended and have noted improvement in latch. Still has narrow gape and will see chiropractor for body work as needed. Given Suck training exercises to assist in better coordination of suck after revision. Demo given with handout of same. Parents are confident in ability to continue and exercises as needed.Will call as needed or follow up at MOMs BF support group 10/31/2022.
== END 2022-10-23 11:45 | disposition home or self-care (01) ==
LOC: FBCO 08:15
PROVIDERS: Visit Provider Obstetrics & Gynecology
DX: Z39.2 Encounter for routine postpartum follow-up (principal)
CPT/HCPCS: G0463

== ENCOUNTER 2023-03-08 20:56 | Outpatient (REF) | payer OTHER, SELFPAY ==
[2023-03-15 11:08] LABS: Age Gdln ACOG Testing Note (.); HPV Aptima Negative (Negative); IGP, Aptima HPV, rfx 16/18,45 Note (.)
== END 2023-03-08 20:57 | disposition home or self-care (01) ==
LOC: LAB 20:56
PROVIDERS: Visit Provider Obstetrics & Gynecology
DX: Z01.419 Encounter for gynecological examination (general) (routine) without abnormal findings (principal)
CPT/HCPCS: 87624; G0145

== ENCOUNTER 2023-03-22 10:19 | Outpatient (RCR) | payer OTHER, SELFPAY | END 2023-03-30 15:52 | disposition home or self-care (01) | LOC: PT 10:19 | PROVIDERS: Visit Provider Physician Assistant | DX: N39.498 Other specified urinary incontinence (principal) | CPT/HCPCS: 97110; 97112; 97161 ==

== ENCOUNTER 2023-05-18 13:50 | Emergency (ER) | payer OTHER, SELFPAY ==
[2023-05-18 14:11] VITALS: BP 144/83; PULSE 81; RESP 16; TEMP 36.6; O2SAT 98; BMI 33.5
--- OUTSIDE RECORDS SUMMARY | 2023-05-18 14:14 | XMS_ITS | CCD ---
Author Name Unknown Address [address] [place] [address] Organization [facility] Care Team Providers Care Maintenance Craftsman Name Role Phone TAMIKADAPHNENohemi PIPER Attending Unavailable TANYA JOHNSON Primary Care Unavailable Leandro Robles Unavailable DONNY, DR ROB Feliciano Admitting Unavailable DONNY, DR ROB Feliciano Attending Unavailable DONNY, DR ROB Feliciano Consulting [facility] Primary Care Unavailable AYDEE ., RAMILA NOBLE Consulting UnavailETHAN Mclaughlin Consulting Unavailable AYESHA ., DR MCCLOUD Admitting Unavailable AYESHA ., DR MCCLOUD Attending Unavailable AYESHA ., DR MCCLOUD Consulting Unavailable MISC, DR JACKSON Primary Care Unavailable AYESHA ., DR MCCLOUD Consulting Unavailable AYESHA ., DR MCCLOUD Admitting Unavailable AYESHA ., DR MCCLOUD Attending Unavailable MISC, DR JACKSON Primary Care Unavailable AYESHA ., DR MCCLOUD Admitting Unavailable AYESHA ., DR MCCLOUD Attending Unavailable AYESHA ., DR MCCLOUD Consulting Unavailable MISC, DR JACKSON Primary Care Unavailable MISC, DR JACKSON Primary Care Unavailable AYESHA ., DR MCCLOUD Admitting Unavailable [place], DR CARIDAD Martin Consulting Unavailable AYESHA ., DR MCCLOUD Attending Unavailable AYESHA ., DR MCCLOUD Consulting Unavailable MISC, DR JACKSON Primary Care Unavailable AYESHA ., DR MCCLOUD Admitting Unavailable AYESHA ., DR MCCLOUD Attending Unavailable AYESHA ., DR MCCLOUD Consulting Unavailable AYESHA ., DR MCCLOUD Admitting Unavailable AYESHA ., DR MCCLOUD Attending Unavailable AYESHA ., DR MCCLOUD Consulting Unavailable MISC, DR JACKSON Primary Care Unavailable SCOTT JOHNSON Attending Unavailable ROGERS HODGE Attending Unavailable Medications Current Medications Medication Drug Class(es) Dates Sig (Normalized) Sig (Original) amphetamine aspartate 2.5 mg / amphetamine sulfate 2.5 mg / dextroamphetamine saccharate 2.5 mg / dextroamphetamine sulfate 2.5 mg oral tablet (1 source) Central Nervous System Stimulant take 1 tablet by mouth every twelve hours Adderall 10 MG 1 tablet Orally Twice a day Active ibuprofen 400 mg oral tablet (1 source) Nonsteroidal Anti-inflammatory Drug take 1 tablet by mouth three times daily at mealtime as needed Ibuprofen 400 MG 1 tablet with food or milk as needed Orally Three times a day Active lisdexamfetamine dimesylate 50 mg oral capsule (1 source) Central Nervous System Stimulant take 1 capsule by mouth every twenty-four hours Vyvanse 50 MG 1 capsule in the morning Orally Once a day Active Problems Active Problems Problem Classification Problem Date Documented Date Episodic/Chronic Immunizations and screening for infectious disease (5 sources) Encounter for screening for infections with a predominantly sexual mode of transmission; Translations: [Encounter for screening for human papillomavirus (HPV)] Onset: 10-06-2021 Episodic Menstrual disorders (8 sources) Irregular menstruation, unspecified; Translations: [Excessive and frequent menstruation with regular cycle] Onset: 10-15-2021 Chronic Other female genital disorders (1 source) Other specified noninflammatory disorders of vagina; Translations: [OTH SPEC NONINFLAMMATORY D/O VAGINA] Onset: 06-05-2022 Episodic Other non-traumatic joint disorders (1 source) Loose body in left elbow joint; Translations: [Loose body in left elbow] Chronic Other non-traumatic joint disorders (1 source) Loose body in left elbow Onset: 03-01-2021 Resolved: 03-01-2021 Chronic Other and delivery including normal (5 sources) Encounter for supervision of other normal , first trimester; Translations: [Encounter for supervision of normal , unspecified, first trimester] Onset: 03-04-2022 Episodic Other screening for suspected conditions (not mental disorders or infectious disease) (5 sources) Encounter for other screening for genetic and chromosomal anomalies; Translations: [Encounter for screening for malignant neoplasm of cervix] Onset: 10-05-2021 Episodic Unclassified (2 sources) LOW BACK PAIN, UNSPECIFIED; Translations: [LOW BACK PAIN, UNSPECIFIED] Onset: 02-02-2022 Past or Other Problems Problem Classification Problem Date Documented Da te Episodic/Chronic Abdominal pain (1 source) Pelvic and perineal pain; Translations: [PELVIC AND PERINEAL PAIN] Onset: 02-02-2022 Episodic Fracture of upper limb (2 sources) Displaced fracture of lateral condyle of left humerus, subsequent encounter for fracture with routine healing; Translations: [Nondisplaced fracture of head of left radius, subsequent encounter for closed fracture with routine healing] Onset: 03-01-2021 Resolved: 03-01-2021 Episodic Other complications of (1 source) Unspecified infection of urinary tract in , first trimester; Translations: [UNS INF URINARY TRACT PREG 1ST TRI] Onset: 02-02-2022 Episodic Other complications of (1 source) Other specified related conditions, first trimester; Translations: [OTH SPEC PREG RELATED COND 1ST TRI] Onset: 02-02-2022 Episodic Other non-traumatic joint disorders (1 source) Pain in left elbow Onset: 03-01-2021 Resolved: 03-01-2021 Episodic Residual codes; unclassified (1 source) Less than 8 weeks gestation of ; Translations: [< 8 WEEKS GESTATION ] Onset: 02-02-2022 Episodic Screening and history of mental health and substance abuse codes (1 source) Personal history of nicotine dependence; Translations: [PERSONAL HISTORY OF NICOTINE DEPEND] Onset: 02-02-2022 Episodic Unclassified (1 source) LOW BACK PAIN, UNSPECIFIED; Translations: [LOW BACK PAIN, UNSPECIFIED] Onset: 01-31-2022 Urinary tract infections (1 source) Urinary tract infection, site not specified; Translations: [UTI SITE NOT SPECIFIED] Onset: 02-02-2022 Episodic Results Test Name Value Interpretation Reference Range Facility CHLAMYDIA/GONOCOCCUS JESE (SW AB/URINE/PAPon 06-01-2022 Chlamydia trachomatis, JESE Negative Normal Negative [facility] Comment on above: Performed By: #### P TT, PT #### [facility] [address], [place] [address] Dr. Todd Moreno Neisseria gonorrhoeae, JESE Negative Normal Negative [facility] Comment on above: Performed By: #### P TT, PT #### [facility] [address] [place], [place] [address] Dr. Todd Moreno VAGINITIS/VAGINOSIS DNA PROB Shaheed 06-01-2022 Tatyana species Negative Normal Negative [facility] Comment on above: Performed By: #### P TT, PT #### [facility] [address] [place] [address] [address] Todd Moreno Gardnerella vaginalis Negative Normal Negative [facility] Comment on above: Performed By: #### P TT, PT #### [facility] [address] [address] [address] Todd Moreno Trichomonas vaginalis Negative Normal Negative [facility] Comment on above: Performed By: #### P TT, PT #### [facility] [address] [address] [address] Todd Moreno HEP B SURFACE ANTIGEN SCREEN on 03-22-2022 HBsAg Screen Negative Normal Negative [facility] Comment on above: Performed By: #### H BSANS #### [facility] [address] [place] [address] Dr. Todd Moreno HEPATITIS C VIRUS AB W/ REFL EX QUANTon 03-22-2022 HCV AB 0.1 s/co ratio Normal 0.0-0.9 [facility] Comment on above: Performed By: #### P TT, PT #### [facility] [address] [place] [address] Dr. Todd Moreno Interpretation: Comment Normal [facility] Comment on above: Result Comment: Nega tive Not infected with HCV, unless recent infection is suspected or other evidence exists to indicate HCV infection. Performed By: #### P TT, PT #### [facility] [address] [place] [address] Dr. Todd Moreno HIV 1 AND 2 WITH REFLEXon HIV Screen 4th Generation wRfx Non-Reactive Normal Non Reactive [facility] Comment on above: Result Comment: HIV Negative HIV-1/HIV-2 antibodies and HIV-1 p24 antigen were NOT detected. There is no laboratory evidence of HIV infection. Performed By: #### H IV12 #### [facility] [address] [place] [address] Dr. Todd Moreno RPR QUANTon 03-22-2022 Rapid Plasma Reagin, Quant Non-Reactive Normal NonRea<1:1 [facility] Comment on above: Result Comment: Luis E dias Note: This test does not meet current guidelines for screening and diagnosis of syphilis. This test is intended for following treatment response in patients being treated for syphilis infection. To screen for syphilis infection, a reflex cascade that includes both RPR and a treponema-specific assay should be utilized, such as Treponema pallidum (Syphilis) Screening Stanton (414239) or Rapid Plasma Reagin (RPR) Test With Reflex to Quantitative RPR and Confirmatory Treponema pallidum Antibodies (638553). Performed By: #### R PRQ #### [facility] [address] [place] [address] Dr. Todd Moreno RUBELLA AB IGGon 03-22-2022 Rubella Antibodies, IgG 5.11 index Normal Immune >0.99 [facility] Comment on above: Result Comment: Non- immune <0.90 Equivocal 0.90 - 0.99 Immune >0.99 Performed By: #### R PRQ #### [facility] [address] [place] [address] Dr. Todd Moreno CBC AUTO DIFFon 03-20-2022 BASO # 0.0 103/ul Normal 0.0-0.1 [facility] Comment on above: Performed By: #### P TT, PT #### [facility] [address] [place] [address] Dr. Todd Moreno Basophils/100 WBC (Bld) 0.3 % Normal 0.2-2.0 [facility] Comment on above: Performed By: #### P TT, PT #### [facility] [address] [place] [address] Dr. Todd Moreno EO # 0.1 103/ul Normal 0.0-0.7 [facility] Comment on above: Performed By: #### P TT, PT #### [facility] [address] [place] [address] Dr. Todd Moreno Eosinophils/100 WBC (Bld) 1.0 % Normal 0.9-7.0 [facility] Comment on above: Performed By: #### P TT, PT #### [facility] [address] [place] [address] Dr. Todd Moreno Erythrocyte distribution width (RBC) [Ratio] 14.4 % Normal 11.0-15.0 [facility] Comment on above: Performed By: #### P TT, PT #### [facility] [address] [place] [address] Dr. Todd Moreno Hematocrit (Bld) [Volume fraction] 38.2 % Normal 36.0-48.0 [facility] Comment on above: Performed By: #### P TT, PT #### [facility] [address] [place] [address] Dr. Todd Moreno Hemoglobin (Bld) [Mass/Vol] 12.2 g/dL Normal 12.0-16.0 [facility] Comment on above: Performed By: #### P TT, PT #### [facility] [address] [place] [address] Dr. Todd Moreno IG # 0.03 10e3/ul Normal 0.00-0.03 [facility] Comment on above: Performed By: #### P TT, PT #### [facility] [address] [place] [address] Dr. Todd Moreno IG % 0.3 % Normal 0.0-0.5 [facility] Comment on above: Performed By: #### P TT, PT #### [facility] [address] [place] [address] Dr. Todd Moreno LYMPH # 1.9 103/ul Normal 1.2-3.8 [facility] Comment on above: Performed By: #### P TT, PT #### [facility] [address] [place] [address] Dr. Todd Moreno Lymphocytes/100 WBC (Bld) 19.0 % Critically low 20.5-60.0 [facility] Comment on above: Performed By: #### P TT, PT #### [facility] [address] [place] [address] Dr. Todd Moreno MANUAL DIFF REQ NO Normal [facility] Comment on above: Performed By: #### P TT, PT #### [facility] [address] [place] [address] Dr. Todd Moreno MCH (RBC) [Entitic mass] 26.1 pg Critically low 26.7-34.0 [facility] Comment on above: Performed By: #### P TT, PT #### [facility] [address] [place] [address] Dr. Todd Moreno MCHC (RBC) [Mass/Vol] 31.9 g/dL Normal 29.9-35.2 [facility] Comment on above: Performed By: #### P TT, PT #### [facility] [address] [place] [address] Dr. Todd Moreno MCV (RBC) [Entitic vol] 81.6 fL Normal 81.0-99.0 [facility] Comment on above: Performed By: #### P TT, PT #### [facility] [address] [place] [address] Dr. Todd Moreno MONO # 0.4 103/ul Normal 0.3-0.8 [facility] Comment on above: Performed By: #### P TT, PT #### [facility] [address] [place] [address] Dr. Todd Moreon Monocytes/100 WBC (Bld) 4.4 % Normal 1.7-12.0 [facility] Comment on above: Performed By: #### P TT, PT #### [facility] [address] [place] [address] Dr. Todd Moreno NEUT # 7.5 103/ul Critically high 1.4-6.5 [facility] Comment on above: Performed By: #### P TT, PT #### [facility] [address] [place] [address] Dr. Todd Moreno Neutrophils/100 WBC (Bld) 75.0 % Normal 43.0-75.0 [facility] Comment on above: Performed By: #### P TT, PT #### [facility] [address] [place] [address] Dr. Todd Moreno Platelet mean volume (Bld) [Entitic vol] 10.4 fL Normal 9.5-13.5 [facility] Comment on above: Performed By: #### P TT, PT #### [facility] [address] [place] [address] Dr. Todd Moreno PLT 302 103/ul Normal 150-450 [facility] Comment on above: Performed By: #### P TT, PT #### [facility] [address] [place] [address] Dr. Todd Moreno RBC 4.68 106/ul Normal 4.20-5.40 [facility] Comment on above: Performed By: #### P TT, PT #### [facility] [address] [place] [address] Dr. Todd Moreno WBC 10.1 103/ul Normal 4.0-11.0 [facility] Comment on above: Performed By: #### P TT, PT #### [facility] [address] [place] [address] Dr. Todd Moreno CULTURE URINEon 03-20-2022 CULTURE URINE Culture Observations : MODERATE GROWTH OF MIXED GENITAL LORA. NO POTENTIAL PATHOGENS SEEN. Normal [facility] Comment on above: Performed By: #### P TT, PT #### [facility] [address] [place] [address] Dr. Todd Moreno GLYCOHEMOGLOBIN A1Con 2022 ADA RECOMMENDATION SEE BELOW Normal [facility] Comment on above: Result Comment: ADA RECOMMENDED LIMIT 4.0 - 6.0 ADA THERAPEUTIC TARGET < 7.0 ACTION SUGGESTED > 7.0 Performed By: #### A 1C #### [facility] [address] [place] [address] Dr. Todd Moreno Glucose [Mass/Vol] 105 mg/dL Normal [facility] Comment on above: Performed By: #### A 1C #### [facility] [address] [place] [address] Dr. Todd Moreno HbA1c (Bld) [Mass fraction] 5.3 % Normal 4.5-6.2 [facility] Comment on above: Performed By: #### A 1C #### [facility] [address] [place] [address] Dr. Todd Moreno BENJAMIN BOX TEST PT SEND OUTo n 03-20-2022 SENT TO REF LAB 03/20/2022 Normal [facility] Comment on above: Performed By: #### P TT, PT #### [facility] [address] [place] [address] Dr. Todd Moreno TYPE AND SCREENon 03-20-2022 TYPE AND SCREEN Negative Normal [facility] Comment on above: Performed By: #### P TT, PT #### [facility] [address] [place] [address] Dr. Todd Moreno US PREG TVon 02-24-2022 US PREG TV EXAMINATION: US PREG TV HISTORY: Irregular periods COMPARISON: No relevant comparison available. FINDINGS: Transvaginal images Tinoco intrauterine gestation Gestational sac: 2.9 cm, 7 weeks 5 days CRL: 1.56 cm, 8 weeks 0 days Yolk sac: 2.8 mm Heart rate: 156 bpm Cervix: Closed, 5.1 cm The uterus is normal in appearance, anteverted The ovaries are normal in appearance. 2.4 cm left ovarian corpus luteal cyst Clinical age: 7 weeks 5 days Clinical MIL: 10/08/2022 Ultrasound age: 8 weeks 0 days Ultrasound MIL: 10/06/2022 IMPRESSION: Viable tinoco intrauterine gestation measuring 8 weeks 0 days Electronically authenticated by: CARIDAD DOBSON Date: 2022-02-24 16:16 Normal [facility] CULTURE URINEon 02-03-2022 CULTURE URINE Isolate 1 Staphylococcus saprophyticus >100,000 cfu/mL of ORGANISM 1 Staphylococcus saprophyticus ANTIBIOTIC M.I.C RX STATUS Beta-Lactamase Neg NEG F Cefoxitin Screen Neg NEG F Benzylpenicillin 0.12 S F Gentamicin <=0.5 S F Ciprofloxacin <=0.5 S F Levofloxacin 0.5 S F Inducible Clindamycin Resistance Neg NEG F Quinupristin/Dalfopri stin 0.5 S F Linezolid 2 S F Vancomycin <=0.5 S F Tetracycline <=1 S F Nitrofurantoin <=16 S F Rifampicin <=0.5 S F Trimethoprim/Sulfamet hoxazole <=10 S F Oxacillin 0.5 S F Normal [facility] Comment on above: Performed By: #### P TT, PT #### [facility] [address] [place] [address] Dr. Todd Moreno US PREG TVon 02-01-2022 US PREG TV US PELVIS: OB LESS THAN 14 WEEKS HISTORY: G 3 P 2 AB Put AB here 36-year-old female female presents for US evaluation. Patient's LMP is January 01, 2022. This is complaining of low back pain. TECHNIQUE: Multiple sonographic images are performed of the pelvis using grayscale and color Doppler with transvaginal probes. COMPARISON: Ultrasound dated 10/06/2020 FINDINGS: Uterus: TV: The uterus measures 7.2 x 5.2 x 4.0 cm. Endometrium: 7.0 mm. Cervix: Normal. 3.3 cm. Gestational Sac: Present in endometrium. Measures 2.6 mm which is out of range Yolk Sac: Not Visualized. Pole: Not visualized. Maternal: Ovaries: Right ovary: Measures 2.5 x 1.7 x 1.8 cm. Left ovary: Measures 3.8 x 2.6 x 2.9 cm. Anechoic area seen in the left ovary measures 2.2 x 1.8 x 1.5 cm.. Free fluid: None. IMPRESSION: 1. Anechoic area in the left ovary may represent a corpus luteal cyst. However, given that a intrauterine has not yet been visualized, other etiologies cannot be excluded. Short-term follow-up in 48 hours with serial beta-hCG and follow-up ultrasound would help better delineate. 2. Anechoic area in the endometrium most likely represents a small gestational sac. Electronically authenticated by: ETHAN MERCER Date: 2022-01-31 22:05 Normal [facility] CBC AUTO DIFFon 01-31-2022 BASO # 0.1 103/ul Normal 0.0-0.1 [facility] Comment on above: Performed By: #### P TT, PT #### [facility] [address] [address] [address] Todd Moreno Basophils/100 WBC (Bld) 0.8 % Normal 0.2-2.0 [facility] Comment on above: Performed By: #### P TT, PT #### [facility] [address] [address] [address] Todd Moreno EO # 0.5 103/ul Normal 0.0-0.7 [facility] Comment on above: Performed By: #### P TT, PT #### [facility] [address] [place] [address] Dr. Todd Moreno Eosinophils/100 WBC (Bld) 5.4 % Normal 0.9-7.0 [facility] Comment on above: Performed By: #### P TT, PT #### [facility] [address] [place] [address] Dr. Todd Moreno Erythrocyte distribution width (RBC) [Ratio] 15.0 % Normal 11.0-15.0 [facility] Comment on above: Performed By: #### P TT, PT #### [facility] [address] [place] [address] Dr. Todd Moreno Hematocrit (Bld) [Volume fraction] 34.3 % Critically low 36.0-48.0 [facility] Comment on above: Performed By: #### P TT, PT #### [facility] [address] [place] [address] Dr. Todd Moreno Hemoglobin (Bld) [Mass/Vol] 11.2 g/dL Critically low 12.0-16.0 [facility] Comment on above: Performed By: #### P TT, PT #### [facility] [address] [place] [address] Dr. Todd Moreno IG # 0.02 10e3/ul Normal 0.00-0.03 [facility] Comment on above: Performed By: #### P TT, PT #### [facility] [address] [place] [address] Dr. Todd Moreno IG % 0.2 % Normal 0.0-0.5 [facility] Comment on above: Performed By: #### P TT, PT #### [facility] [address] [place] [address] Dr. Todd Moreno LYMPH # 2.7 103/ul Normal 1.2-3.8 [facility] Comment on above: Performed By: #### P TT, PT #### [facility] [address] [place] [address] Dr. Todd Moreno Lymphocytes/100 WBC (Bld) 29.9 % Normal 20.5-60.0 [facility] Comment on above: Performed By: #### P TT, PT #### [facility] [address] [place] [address] Dr. Todd Moreno MANUAL DIFF REQ NO Normal [facility] Comment on above: Performed By: #### P TT, PT #### [facility] [address] [place] [address] Dr. Todd Moreno MCH (RBC) [Entitic mass] 26.7 pg Normal 26.7-34.0 [facility] Comment on above: Performed By: #### P TT, PT #### [facility] [address] [place] [address] Dr. Todd Moreno MCHC (RBC) [Mass/Vol] 32.7 g/dL Normal 29.9-35.2 [facility] Comment on above: Performed By: #### P TT, PT #### [facility] [address] [place] [address] Dr. Todd Moreno MCV (RBC) [Entitic vol] 81.7 fL Normal 81.0-99.0 [facility] Comment on above: Performed By: #### P TT, PT #### [facility] [address] [place] [address] Dr. Todd Moreno MONO # 0.5 103/ul Normal 0.3-0.8 [facility] Comment on above: Performed By: #### P TT, PT #### [facility] [address] [place] [address] Dr. Todd Moreno Monocytes/100 WBC (Bld) 5.7 % Normal 1.7-12.0 [facility] Comment on above: Performed By: #### P TT, PT #### [facility] [address] [place] [address] Dr. Todd Moreno NEUT # 5.2 103/ul Normal 1.4-6.5 [facility] Comment on above: Performed By: #### P TT, PT #### [facility] [address] [place] [address] Dr. Todd Moreno Neutrophils/100 WBC (Bld) 58.0 % Normal 43.0-75.0 [facility] Comment on above: Performed By: #### P TT, PT #### [facility] [address] [place] [address] Dr. Todd Moreno Platelet mean volume (Bld) [Entitic vol] 10.4 fL Normal 9.5-13.5 [facility] Comment on above: Performed By: #### P TT, PT #### [facility] [address] [place] [address] Dr. Todd Moreno PLT 270 103/ul Normal 150-450 [facility] Comment on above: Performed By: #### P TT, PT #### [facility] [address] [place] [address] Dr. Todd Moreno RBC 4.20 106/ul Normal 4.20-5.40 [facility] Comment on above: Performed By: #### P TT, PT #### [facility] [address] [place] [address] Dr. Todd Moreno WBC 9.1 103/ul Normal 4.0-11.0 [facility] Comment on above: Performed By: #### P TT, PT #### [facility] [address] [place] [address] Dr. Todd Moreno ER URINE PROFILEon 2 Bilirubin Ql (U) Negative Normal NEGATIVE [facility] Comment on above: Performed By: #### P TT, PT #### [facility] [address] [place] [address] Dr. Todd Moreno Clarity (U) CLEAR Normal CLEAR [facility] Comment on above: Performed By: #### P TT, PT #### [facility] [address] [place] [address] Dr. Todd Moreno Color (U) YELLOW Normal YELLOW [facility] Comment on above: Performed By: #### P TT, PT #### [facility] [address] [place] [address] Dr. Todd Moreno ERUAHD A micrscopic examination will be performed if indicated. Normal [facility] Comment on above: Performed By: #### P TT, PT #### [facility] [address] [address] [address] Todd Moreno Glucose Ql (U) Negative Normal NEGATIVE [facility] Comment on above: Performed By: #### P TT, PT #### [facility] [address] [address] [address] Todd Moreno Hemoglobin Ql (U) TRACE-INTACT Abnormal NEGATIVE [facility] Comment on above: Performed By: #### P TT, PT #### [facility] [address] [address] [address] Todd Moreno Ketones Ql (U) Negative Normal NEGATIVE [facility] Comment on above: Performed By: #### P TT, PT #### [facility] [address] [place] [address] Dr. Todd Moreno LEUKOCYTES SMALL Abnormal NEGATIVE [facility] Comment on above: Performed By: #### P TT, PT #### [facility] [address] [address] [address] Todd Moreno Nitrite Ql (U) Negative Normal NEGATIVE [facility] Comment on above: Performed By: #### P TT, PT #### [facility] [address] [place] [address] Dr. Todd Moreno pH (U) 6.5 [pH] Normal 5-9 [facility] Comment on above: Performed By: #### P TT, PT #### [facility] [address] [place] [address] Dr. Todd Moreno SPEC GRAVITY 1.015 Normal 1.005-<=1.[address] [facility] Comment on above: Performed By: #### P TT, PT #### [facility] [address] [address] [address] Todd Moreno UA PROTEIN Negative Normal NEGATIVE/ TRACE [facility] Comment on above: Performed By: #### P TT, PT #### [facility] [address] [place] [address] Dr. Todd Moreno UR MICRO IND INDICATED Normal [facility] Comment on above: Performed By: #### P TT, PT #### [facility] [address] [place] [address] Dr. Todd Moreno Urobilinogen Qn (U) 0.2 {Tiffany'U}/dL Normal 0.2 - 1. 0 [facility] Comment on above: Performed By: #### P TT, PT #### [facility] [address] [place] [address] Dr. Todd Moreno LIPASEon 01-31-2022 Lipase [Catalytic activity/Vol] 123.0 U/L Normal 73.0-393.0 [facility] Comment on above: Performed By: #### C MP, LIPA #### [facility] [address] [place] [address] Dr. Todd Moreno PREG QUANT HCGon 01-31-2022 HCG QUANT 711 mIU/mL Normal [facility] Comment on above: Performed By: #### P TT, PT #### [facility] [address] [place] [address] Dr. Todd Moreno HCG RANGE SEE BELOW Normal [facility] Comment on above: Result Comment: 5-50 0.2-1 WEEK 50-500 1-2 WEEKS 100-5,000 2-3 WEEKS 500-10,000 3-4 WEEKS 1,000-50,000 4-5 WEEKS 10,000-100,000 5-6 WEEKS 15,000-200,000 6-8 WEEKS 10,000-100,000 2-3 MONTHS Performed By: #### P TT, PT #### [facility] [address] [place] [address] Dr. Todd Moreno PROF 14(COMP METB)on 022 Albumin [Mass/Vol] 3.7 g/dL Normal 3.4-5.0 [facility] Comment on above: Performed By: #### C MP, LIPA #### [facility] [address] [place] [address] Dr. Todd Moreno Albumin/Globulin [Mass ratio] 1.0 {ratio} Normal [facility] Comment on above: Performed By: #### C MP, LIPA #### [facility] [address] [place] [address] Dr. Todd Moreno ALP [Catalytic activity/Vol] 80 U/L Normal 46-116 [facility] Comment on above: Performed By: #### C MP, LIPA #### [facility] [address] [address] [address] Todd Moreno ALT [Catalytic activity/Vol] 23 U/L Normal 14-59 [facility] Comment on above: Performed By: #### C MP, LIPA #### [facility] [address] [address] [address] Tdod Moreno Anion gap [Moles/Vol] 10.2 mmol/L Normal [facility] Comment on above: Performed By: #### C MP, LIPA #### [facility] [address] [place] [address] Dr. Todd Moreno AST [Catalytic activity/Vol] 14 U/L Critically low 15-37 [facility] Comment on above: Performed By: #### C VALERY, LIPA #### [facility] [address] [place] [address] Dr. Todd Moreno Bilirubin [Mass/Vol] 0.3 mg/dL Normal 0.2-1.0 [facility] Comment on above: Performed By: #### C VALERY, LIPA #### [facility] [address] [place] [address] Dr. Todd Moreno Calcium [Mass/Vol] 9.1 mg/dL Normal 8.5-10.1 [facility] Comment on above: Performed By: #### C MP, LIPA #### [facility] [address] [place] [address] Dr. Tdod Moreno Chloride [Moles/Vol] 104 mmol/L Normal 98-107 [facility] Comment on above: Performed By: #### C MP, LIPA #### [facility] [address] [address] [address] Todd Moreno CO2 [Moles/Vol] 26.8 mmol/L Normal 21.0-32.0 [facility] Comment on above: Performed By: #### C MP, LIPA #### [facility] [address] [address] [address] Todd Moreno Creatinine [Mass/Vol] 0.87 mg/dL Normal 0.55-1.02 [facility] Comment on above: Performed By: #### C MP, LIPA #### [facility] [address] [address] [address] Todd Moreno EGFR-AF [place] >60 Normal >=60 [facility] Comment on above: Performed By: #### C MP, LIPA #### [facility] [address] [address] [address] Tdod Moreno EGFR-NON AF [place] >60 Normal >=60 [facility] Comment on above: Performed By: #### C MP, LIPA #### [facility] [address] [address] [address] Todd Moreno Globulin (S) [Mass/Vol] 3.7 g/dL Normal [facility] Comment on above: Performed By: #### C MP, LIPA #### [facility] [address] [place] [address] Dr. Todd Moreno Glucose [Mass/Vol] 98 mg/dL Normal 74-106 [facility] Comment on above: Performed By: #### C MP, LIPA #### [facility] [address] [place] [address] Dr. Todd Moreno Potassium [Moles/Vol] 4.0 mmol/L Normal 3.5-5.1 [facility] Comment on above: Performed By: #### C MP, LIPA #### [facility] [address] [place] [address] Dr. Todd Moreno Protein [Mass/Vol] 7.4 g/dL Normal 6.4-8.2 [facility] Comment on above: Performed By: #### C MP, LIPA #### [facility] [address] [address] [address] Todd Moreno Sodium [Moles/Vol] 137 mmol/L Normal 136-145 [facility] Comment on above: Performed By: #### C MP, LIPA #### [facility] [address] [place] [address] Dr. Todd Moreno Urea nitrogen [Mass/Vol] 15.0 mg/dL Normal 7.0-18.0 [facility] Comment on above: Performed By: #### C MP, LIPA #### [facility] [address] [place] [address] Dr. Todd Moreno Urea nitrogen/Creatinine [Mass ratio] 17.2 mg/mg Normal [facility] Comment on above: Performed By: #### C MP, LIPA #### [facility] [address] [place] [address] Dr. Todd Moreno URINE MICROSCOPIC ONLYon BACTERIA SMALL Abnormal NONE SEEN [facility] Comment on above: Performed By: #### P TT, PT #### [facility] [address] [place] [address] Dr. Todd Moreno Bacteria identified Cx Nom (U) INDICATED Normal [facility] Comment on above: Performed By: #### P TT, PT #### [facility] [address] [place] [address] Dr. Todd Moreno CAST NONE SEEN Normal NONE SEEN [facility] Comment on above: Performed By: #### P TT, PT #### [facility] [address] [place] [address] Dr. Todd Moreno Crystals LM Nom (Urine sed) NONE SEEN Normal NONE SEEN [facility] Comment on above: Performed By: #### P TT, PT #### [facility] [address] [place] [address] Dr. Todd Moreno Epithelial cells LM Ql (Urine sed) FEW Abnormal NONE SEEN /RARE [facility] Comment on above: Performed By: #### P TT, PT #### [facility] [address] [place] [address] Dr. Todd Moreno MUCOUS NONE SEEN Normal NONE SEEN [facility] Comment on above: Performed By: #### P TT, PT #### [facility] [address] [place] [address] Dr. Todd Moreno RBC 0-2 Normal 0-2 [facility] Comment on above: Performed By: #### P TT, PT #### [facility] [address] [address] [address] Todd Moreno WBC 10-20 Abnormal NONE SEEN [facility] Comment on above: Performed By: #### P TT, PT #### [facility] [address] [id number] Todd Moreno ESTROGENon 10-20-2021 Estrogens, Total 68 pg/mL Normal [facility] Comment on above: Result Comment: Prep ubertal < 40 Female Cycle: 1-10 Days 16 - 328 11-20 Days 34 - 501 21-30 Days 48 - 350 Post-Menopausal 40 - 244 Performed By: #### P TT, PT #### [facility] [address] [place] [address] Dr. Todd Moreno ESTRADIOLon 10-16-2021 Estradiol 62.1 pg/mL Normal [facility] Comment on above: Result Comment: Adul t Female: Follicular phase 12.5 - 166.0 Ovulation phase 85.8 - 498.0 Luteal phase 43.8 - 211.0 Postmenopausal <6.0 - 54.7 1st trimester 215.0 - >4300.0 Ramos ECLIA methodology Performed By: #### E STRADI #### [facility] [address] [place] [address] Dr. Todd Moreno FSHon 10-16-2021 FSH 5.6 mIU/mL Normal [facility] Comment on above: Result Comment: Adul t Female: Follicular phase 3.5 - 12.5 Ovulation phase 4.7 - 21.5 Luteal phase 1.7 - 7.7 Postmenopausal 25.8 - 134.8 Performed By: #### P TT, PT #### [facility] [address] [place] [address] Dr. Todd Moreno LUTEINIZING HORMONE (LH)on 0 10-16-2021 LH 12.1 mIU/mL Normal [facility] Comment on above: Result Comment: Adul t Female: Follicular phase 2.4 - 12.6 Ovulation phase 14.0 - 95.6 Luteal phase 1.0 - 11.4 Postmenopausal 7.7 - 58.5 Performed By: #### P TT, PT #### [facility] [address] [place] [address] Dr. Todd Moreno CBC AUTO DIFFon 10-15-2021 BASO # 0.0 103/ul Normal 0.0-0.1 [facility] Comment on above: Performed By: #### P TT, PT #### [facility] [address] [place] [address] Dr. Todd Moreno Basophils/100 WBC (Bld) 0.6 % Normal 0.2-2.0 [facility] Comment on above: Performed By: #### P TT, PT #### [facility] [address] [place] [address] Dr. Todd Moreno EO # 0.1 103/ul Normal 0.0-0.7 [facility] Comment on above: Performed By: #### P TT, PT #### [facility] [address] [place] [address] Dr. Todd Moreno Eosinophils/100 WBC (Bld) 2.1 % Normal 0.9-7.0 [facility] Comment on above: Performed By: #### P TT, PT #### [facility] [address] [place] [address] Dr. Todd Moreno Erythrocyte distribution width (RBC) [Ratio] 14.0 % Normal 11.0-15.0 [facility] Comment on above: Performed By: #### P TT, PT #### [facility] [address] [place] [address] Dr. Todd Moreno Hematocrit (Bld) [Volume fraction] 37.0 % Normal 36.0-48.0 [facility] Comment on above: Performed By: #### P TT, PT #### [facility] [address] [place] [address] Dr. Todd Moreno Hemoglobin (Bld) [Mass/Vol] 11.6 g/dL Critically low 12.0-16.0 [facility] Comment on above: Performed By: #### P TT, PT #### [facility] [address] [place] [address] Dr. Todd Moreno IG # 0.01 10e3/ul Normal 0.00-0.03 [facility] Comment on above: Performed By: #### P TT, PT #### [facility] [address] [address] [address] Todd Moreno IG % 0.2 % Normal 0.0-0.5 [facility] Comment on above: Performed By: #### P TT, PT #### [facility] [address] [address] [address] Todd Moreno LYMPH # 2.2 103/ul Normal 1.2-3.8 [facility] Comment on above: Performed By: #### P TT, PT #### [facility] [address] [address] [address] Todd Moreno Lymphocytes/100 WBC (Bld) 33.1 % Normal 20.5-60.0 [facility] Comment on above: Performed By: #### P TT, PT #### [facility] [address] [place] [address] Dr. Todd Moreno MANUAL DIFF REQ NO Normal [facility] Comment on above: Performed By: #### P TT, PT #### [facility] [address] [address] [address] Todd Moreno MCH (RBC) [Entitic mass] 26.3 pg Critically low 26.7-34.0 [facility] Comment on above: Performed By: #### P TT, PT #### [facility] [address] [place] [address] Dr. Todd Moreno MCHC (RBC) [Mass/Vol] 31.4 g/dL Normal 29.9-35.2 [facility] Comment on above: Performed By: #### P TT, PT #### [facility] [address] [place] [address] Dr. Todd Moreno MCV (RBC) [Entitic vol] 83.9 fL Normal 81.0-99.0 [facility] Comment on above: Performed By: #### P TT, PT #### [facility] [address] [place] [address] Dr. Todd Moreno MONO # 0.2 103/ul Critically low 0.3-0.8 [facility] Comment on above: Performed By: #### P TT, PT #### [facility] [address] [place] [address] Dr. Todd Moreno Monocytes/100 WBC (Bld) 3.5 % Normal 1.7-12.0 [facility] Comment on above: Performed By: #### P TT, PT #### [facility] [address] [address] [address] Todd Moreno NEUT # 4.0 103/ul Normal 1.4-6.5 [facility] Comment on above: Performed By: #### P TT, PT #### [facility] [address] [place] [address] Dr. Todd Moreno Neutrophils/100 WBC (Bld) 60.5 % Normal 43.0-75.0 [facility] Comment on above: Performed By: #### P TT, PT #### [facility] [address] [place] [address] Dr. Todd Moreno Platelet mean volume (Bld) [Entitic vol] 10.6 fL Normal 9.5-13.5 [facility] Comment on above: Performed By: #### P TT, PT #### [facility] [address] [place] [address] Dr. Todd Moreno PLT 263 103/ul Normal 150-450 [facility] Comment on above: Performed By: #### P TT, PT #### [facility] [address] [place] [address] Dr. Todd Moreno RBC 4.41 106/ul Normal 4.20-5.40 [facility] Comment on above: Performed By: #### P TT, PT #### [facility] [address] [place] [address] Dr. Todd Moreno WBC 6.6 103/ul Normal 4.0-11.0 [facility] Comment on above: Performed By: #### P TT, PT #### [facility] [address] [place] [address] Dr. Todd Moreno FREE T4on 10-15-2021 Free T4 [Mass/Vol] 1.05 ng/dL Normal 0.76-1.46 [facility] Comment on above: Performed By: #### P TT, PT #### [facility] [address] [place] [address] Dr. Todd Moreno PROTIMEon 10-15-2021 INR Coag (PPP) [Relative time] 1.02 {INR} Normal [facility] Comment on above: Performed By: #### P TT, PT #### [facility] [address] [place] [address] Dr. Todd Moreno INR GUIDELINES SEE BELOW Normal [facility] Comment on above: Result Comment: RAMÓN RED INR: 2.0 - 3.0 CONDITIONS NOT LISTED BELOW 2.5 - 3.5 FOR PROSTHETIC HEART VALVE REPLACEMENT 2.5 - 3.5 RECURRENT THROMBOSIS Performed By: #### P TT, PT #### [facility] [address] [place] [address] Dr. Todd Moreno PT Coag (PPP) [Time] 11.0 s Normal 9.0-11.6 [facility] Comment on above: Performed By: #### P TT, PT #### [facility] [address] [place] [address] Dr. Todd Moreno PTTon 10-15-2021 aPTT Coag (Bld) [Time] 32.4 s Normal 22.3-36.2 [facility] Comment on above: Performed By: #### P TT, PT #### [facility] [address] [place] [address] Dr. Todd Mroeno TSHon 10-15-2021 TSH 1.777 uIU/mL Normal 0.358-3.740 [facility] Comment on above: Performed By: #### P TT, PT #### [facility] [address] [place] [address] Dr. Todd Moreno PAP ACOG PANEL 2: 30 to 65on 10-10-2021 . . Normal [facility] Comment on above: Result Comment: Perf ormed at: WB Performed By: #### [id number] #### [facility] [address] [place] [address] Dr. Todd Moreno Age Gdln ACOG Testing 30-65 Normal [facility] Comment on above: Performed By: #### [id number] #### [facility] [address] [place] [address] Dr. Todd Moreno DIAGNOSIS: Comment Normal [facility] Comment on above: Result Comment: NEGA TIVE FOR INTRAEPITHELIAL LESION OR MALIGNANCY. Performed at: WB Performed By: #### [id number] #### [facility] [address] [address] [address] Todd Moreno HPV Aptima Negative Normal Negative [facility] Comment on above: Result Comment: This nucleic acid amplification test detects fourteen high-risk HPV types (16,18,31,33,35,39,45,51,52,56,58,59,66,68) without differentiation. Performed at: =G Performed By: #### [id number] #### [facility] [address] [place] [address] Dr. Todd Moreno Methodology: Comment Normal [facility] Comment on above: Result Comment: This liquid based ThinPrep(R) pap test was screened with the use of an image guided system. Performed at: WB Performed By: #### [id number] #### [facility] [address] [place] [address] Dr. Tdod Moreno Note: Comment [facility] Comment on above: Result Comment: The Pap smear is a screening test designed to aid in the detection of premalignant and malignant conditions of the uterine cervix. It is not a diagnostic procedure and should not be used as the sole means of detecting cervical cancer. Both false-positive and false-negative reports do occur. . Performed at: WB Performed By: #### [id number] #### [facility] [address] [address] [address] Todd Moreno Performed by: Comment Normal [facility] Comment on above: Result Comment: Magalie Lemus Volleyball Assistant Coach (ASCP) Performed at: WB Performed By: #### [id number] #### [facility] [address] [address] [address] Todd Moreno Specimen adequacy: Comment Normal [facility] Comment on above: Result Comment: Sati sfactory for evaluation. Endocervical and/or squamous metaplastic cells (endocervical component) are present. Performed at: WB Performed By: #### [id number] #### [facility] [address] [address] [address] Todd Moreno COVID-19 Antigenon 2 COVID-19 Antigen Healthcare Worker?: N Corinne Reference Corinne Reference Negative SARS-CoV+SARS-CoV-2 (COVID-19) Ag [Presence] in Respiratory specimen by Rapid immunoassay Negative for SARS Antigen by KAEL COVID19 Blank Space Corinne Disclaimer Negative results, from patients with symptom Corinne Disclaimer onset beyond five days, should be treated as Corinne Disclaimer presumptive and confirmation with a molecular Corinne Disclaimer assay, if necessary, for patient management, Corinne Disclaimer may be performed. Negative results do not rule Corinne Disclaimer out COVID-19 and should not be used as the sole Corinne Disclaimer basis for treatment or patient management Corinne Disclaimer decisions, including infection control decisions. Corinne Disclaimer Negative results should be considered in the Corinne Disclaimer context of a patient's recent exposures, history Corinne Disclaimer and the presence of clinical signs and symptoms Corinne Disclaimer consistent with COVID-19. COVID19 Blank Space Corinne Disclaimer The Corinne SARS Antigen KAEL does not differentiate Corinne Disclaimer between SARS-CoV and SARS-CoV-2. COVID19 Blank Space Corinne Disclaimer This test was developed and its performance Corinne Disclaimer characteristic determined by [employer] and Corinne Disclaimer validated at [facility]. This Corinne Disclaimer test has not been FDA cleared or approved. This Corinne Disclaimer test has been authorized by FDA under an Emergency Use Corinne Disclaimer Authorization (EUA). This test has been validated Corinne Disclaimer in accordance with the FDA's Guidance Document (Policy Corinne Disclaimer for Diagnostics Testing in Laboratories Certified to Corinne Disclaimer Perform High Complexity Testing under CLIA prior to Corinne Disclaimer Emergency Use Authorization for Coronavirus Corinne Disclaimer iseas during the Public Health Emergency) Corinne Disclaimer issued on June 19, 2019. This test is only authorized Corinne Disclaimer for the duration of time the declaration that Corinne Disclaimer circumstances exist justifying the authorization of Corinne Disclaimer the emergency use of in vitro diagnostic tests for Corinne Disclaimer detection of SARS-CoV-2 virus and/or diagnosis of Corinne Disclaimer COVID-19 infection under section 564(b)(1) of the Corinne Disclaimer Act, 21 U.S.C. 360bbb-3(b)(1), unless the Corinne Disclaimer authorization is terminated or revoked sooner. PERFORMED BY: [place] [address] PATHOLOGIST INVENTORY CONTROL ASSOCIATE JONATHAN SHEPARD M.D. [facility] Comment on above: Performed By: #### S OFIANEG, COVID-19 CORINNE #### [facility] [address] [place], [place] [id number] [facility] HCG,Urineon 03-30-2021 Beta HCG ( test) Ql (U) Negative [facility] Comment on above: Result Comment: PERF ORMED BY: [place] [address] PATHOLOGIST INVENTORY CONTROL ASSOCIATE JONATHAN SHEPARD M.D. Performed By: #### U HCG #### [facility] [address] [place] [address] Corinne Ag Negativeon 03-30-19 22 Corinne Ag Negative Negative Normal Negative [facility] Comment on above: Result Comment: This is a duplicate Corinne SARS Antigen (KAEL) result to be used for statistical tracking purpose only. PERFORMED BY: [place] [address] PATHOLOGIST INVENTORY CONTROL ASSOCIATE JONATHAN SHEPARD M.D. Performed By: #### S OFIANEG, COVID-19 CORINNE #### [facility] [address] [place] [address] COVID-19 FRon 03-28-2021 SARS-CoV-2 (COVID-19) RNA JESE+probe Ql (Unsp spec) Negative Normal Negative [facility] Comment on above: Order Comment: Healt hcare Worker?: N Result Comment: Testing for SARS-CoV-2 by RT-PCR This test was developed and its performance characteristics determined by [employer] and validated at the [facility]. This test has not been FDA cleared or approved. This test has been authorized by FDA under an Emergency Use Authorization (EUA). This test has been validated in accordance with the FDA's Guidance Document (Policy for Diagnostics Testing in Laboratories Certified to Perform High Complexity Testing under CLIA prior to Emergency Use Authorization for Coronavirus Disease-2019 during the Public Health Emergency) issued on June 19, 2019. This test is only authorized for the duration of time the declaration that circumstances exist justifying the authorization of the emergency use of in vitro diagnostic tests for detection of SARS-CoV-2 virus and/or diagnosis of COVID-19 infection under section 564(b)(1) of the Act, 21 U.S.C. 360bbb-3(b)(1), unless the authorization is terminated or revoked sooner. PERFORMED BY: [place] [address] PATHOLOGIST INVENTORY CONTROL ASSOCIATE JONATHAN SHEPARD M.D. Performed By: #### C OVID 19 [facility] #### [facility] [address] [place], [place] [id number] [facility] XR elbow LT 2Von 03-01-2021 XR elbow LT 2V [facility] [address] XRay Report Signed Patient: Danyell Almaguer MR#: [id number] : 1985 Acct:[id number] Age/Sex: 35 / F ADM Date: 03/01/21 Loc: [facility] Room: Type: [facility] Attending Dr: Leandro Robles MD Ordering Provider: Leandro Robles MD Date of Service: 03/01/21 XR/XR elbow LT 2V: Closed fracture of capitellum of left humerus with routine h Copies to: Leandro Robles MD 2 viewsLEFT elbow plain film COMPARISON:10/26/20, 01/27/21 HISTORY:Closed fracture of capitellum the LEFT humerus. 9 mm lucent defect of the capitellum identified. There is irregularity of the lateral portion of the radial head which may represent healing fracture. No supra patellar effusion. Bony alignment adequate. No focal soft tissue swelling is present. XR/XR elbow LT 2V IMPRESSION: Osteochondral defect involving the capitellum. Potential healing/healed fracture of the the radial head. Impression dictated by: Valdez Mcwilliams M.D.03/01/2021 1:47 PM Dictation Location: [place] [address] Transcribed By: [facility] 03/01/21 1347 Dictated By: Valdez Mcwilliams DO 03/01/21 1344 Signed By: 03/01/21 1347 [facility] XR FOREARM LEFT 2 VIEWSon XR FOREARM LEFT 2 VIEWS EXAMINATION: XR FOREARM LEFT 2 VIEWS 09/08/2020 11:38 PM HISTORY: ORDERING SYSTEM PROVIDED HISTORY: Fall with left upper extremity pain. TECHNOLOGIST PROVIDED HISTORY: Injury/Trauma Reason for Exam: Fall, pain to left arm Cancer History: No Surgery, Radiation History: No Encounter Type: Initial Mechanism of Injury: Fall ORDERING SYSTEM PROVIDED DIAGNOSIS CODES: COMPARISON: None. FINDINGS: Two views of the left forearm were obtained. No acute fracture or dislocation is seen. The joint spaces are preserved. IMPRESSION: 1. No acute fracture or dislocation of the left forearm is seen. If pain persists, repeat radiographs are recommended in 7 to 10 days. [facility]/[employer] Workstation ID: [id number] Dictated by: MAR DAWSON on SunSep 08, 2020 11:41:42 PM EDT Transcribed by: SHERRILL SMYTH on SunSep 09, 2020 12:10:05 AM EDT Finalized by: MAR DAWSON on SunSep 09, 2020 12:16:26 AM EDT [facility] Comment on above: Order Comment: Injur y/Trauma or Illness?:Injury/Trauma How long have you had these symptoms (acute/chronic)?:Acute Reason for exam?:fall, pain to left arm History of cancer?:no Surgeries, chemotherapy, or radiation?:no Type of Exam?:Initial Mechanism of injury?:fall XR SHOULDER LEFT 2+ VIEWS (S TANDARD)on 09-09-2020 XR SHOULDER LEFT 2+ VIEWS (STANDARD) EXAMINATION: XR SHOULDER LEFT 2+ VIEWS (STANDARD) 09/08/2020 11:38 pm HISTORY: ORDERING SYSTEM PROVIDED HISTORY: pain to left upper extremity after fall., TECHNOLOGIST PROVIDED HISTORY: Injury/Trauma Reason for exam: fall, pain to left shoulder radiating down arm Cancer History: no Surgery, RadiationHistory: no Encounter Type: Initial Mechanism of injury: fall ORDERING SYSTEM PROVIDED DIAGNOSIS CODES: COMPARISON: None FINDINGS: No acute fracture is seen. Alignment of the osseous structures is normal. The joint spaces are preserved. The soft tissues are unremarkable. IMPRESSION: No evidence for acute fracture or malalignment Workstation ID: [id number] Dictated by: STACY DONALDSON on SunSep 08, 2020 11:42:00 PM EDT Transcribed by: STACY DONALDSON on SunSep 08, 2020 11:42:00 PM EDT Finalized by: STACY DONALDSON on SunSep 08, 2020 11:42:00 PM EDT [facility] Comment on above: Order Comment: Injur y/Trauma or Illness?:Injury/Trauma How long have you had these symptoms (acute/chronic)?:Acute Reason for exam?:fall, pain to left shoulder radiating down arm History of cancer?:no Surgeries, chemotherapy, or radiation?:no Type of Exam?:Initial Mechanism of injury?:fall Vital Signs Date Time Vital Sign Value Performing Clinician Erik wilson 03-01-2021 11:00-0500 Body height 170.18 cm Leandro Robles Other [facility] Other 03-01-2021 11:00-0500 Body mass index (BMI) [Ratio] 30.07 kg/m2 Leandro Robles Other [facility] Other 03-01-2021 11:00-0500 Body weight 87.09 kg Leandro Travis Other [facility] Other Encounters Encounter Date Encounter Type Care Provider Facility Start: 03-08-2023 End: 03-08-2023 ambulatory ROGERS HODGE Not Available Start: 02-12-2023 End: 02-12-2023 ambulatory SCOTT JOHNSON Not Available Start: 05-30-2022 End: 05-30-[address] ROGERS HODGE . Facility: Start: 03-20-2022 End: 03-21-[address] ROGERS HODGE . Facility:[facility] Start: 02-24-2022 End: 02-25-[address] Facility:[facility] Start: 01-31-2022 End: 02-01-[address] ROB HINES Facility:[facility] Start: 10-15-2021 End: 10-16-[address] ROGERS HODGE . Facility:[facility] Start: 10-05-2021 End: 10-05-[address] ROGERS HODGE . Facility:[facility] Start: 03-01-2021 End: 03-01-2021 ambulatory Leandro Robles Other [facility] Other Start: 03-01-2021 Encounter for other preprocedural examination Leandro Robles [facility] Start: 03-01-2021 Office outpatient ne w 45 minutes Leandro Robles [facility] Start: 09-09-2020 End: 09-09-2020 [facility] Payers Date Payer Category Payer Private Health Insurance [id number] 2019 Unknown [id number] 1985 Unknown [id number] 1985 Unknown [id number] 2.16.84 [id number] 1986 Unknown [id number] 2.16.84 [id number] 1986 Unknown [id number] 2.16.84 [id number] 1986 Unknown [id number] 2.16.84 [id number] 1986 Unknown [id number] 2.16.84 [id number] 1986 Unknown [id number] 2.16.84 [id number] 1986 Unknown [id number] 2.16.840 .[id number] 1986 Unknown [id number] 2.16.840 .[id number] 1959 Self-pay 1959 Unknown [id number] 1959 Unknown [id number] 1959 Unknown [id number] Unknown [id number] 2.16.84 [id number] Social History Date Type Detail Facility Sex Assigned At [facility] Other Evaluation note 03-01-2021 Note Date & Type Note Facility 03-01-2021 Evaluation note Encounter Date Diagnosis Assessment Notes Feb, Closed fracture of capitellum of left humerus with routine healing (ICD-10 - S42.452D) MRI reviewed with patient as healing fractures within the elbow. 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 Instructed on regular motion and stretching exercises. Discussed potential for surgical excision of loose body through arthroscopy as patient appears to have symptoms that correlate with the loose body. Also discussed potential that surgery may end up being an open procedure, and may also consider microfracture drilling at the time of surgery. Surgical procedure, risks, recovery and restrictions discussed in detail. Patient was in understanding and wishes to proceed. Discussed there is some loss of full extension. I would not expect dramatic improvement after surgery. Our hope is that we can remove any loose fragments that could be causing locking sensation as well as treat the osteochondral lesion with debridement as well as possible microfracture. The potential to develop increasing stiffness is also present from surgery. We extensively discussed Feb, Closed nondisplaced fracture of head of left radius with routine healing, subsequent encounter (ICD-10 - S52.125D) Feb, Left elbow pain (ICD-10 - M25.522) Feb, Loose body in left elbow (ICD-10 - M24.022) Feb, Pre-op exam (ICD-10 - Z01.818) [facility] [employer] Other History general Narrative - Reported Note Date & Type Note Facility History general Narrative - Reported Type Medical History ADHD [facility] [employer] Other Summary Purpose Family History No Family History Records FoundNo Family History Records FoundNo Family History Records FoundNo Family History Records Found Advance Directives No Advanced Directives Records FoundNo Advanced Directives Records FoundNo Advanced Directives Records FoundNo Advanced Directives Records Found Additional Source Comments INFORMATION SOURCE (unrecogn ized section and content) DATE CREATED AUTHOR 09/14/2020 [facility] DATE CREATED AUTHOR AUTHOR'S ORGANIZ ATION 10/06/2021 [facility] DATE CREATED AUTHOR AUTHOR'S ORGANIZ ATION 06/08/2022 [facility] DATE CREATED AUTHOR AUTHOR'S ORGANIZ ATION 03/09/2023 [facility] EPIC REASON FOR VISIT (unrecogniz ed section and content) Left Elbow Injury FOR RECORDS PERTAINING TO PATIENTS WHO ARE OR HAVE BEEN ENROLLED IN A CHEMICAL DEPENDENCY/SUBSTANCEABUSE PROGRAM, SOME INFORMATION MAY BE OMITTED. This clinical summary was aggregated from multiple sources. Caution should be exercised in using it in the provision of clinical care. This summary normalizes information from multiple sources, and as a consequence, information in this document may materially change the coding, format and clinical context of patient data. In addition, data may be omitted in some cases. CLINICAL DECISIONS SHOULD BE BASED ON THE PRIMARY CLINICAL RECORDS. [facility] provides no warranty or guarantee of the accuracy or completeness of information in this document.
--- NOTE | 2023-05-18 14:18 | US_ITS ---
[address] [address] Patient Name: DANYELL ROSENBERG MRN: [id number] date: 1985 Sex: F Assigned Patient Location: ER Current Patient Location: ER Accession/Order Number: [id number] Exam Date: 05/18/2023 14:30 Report Date: 05/18/2023 15:12 At the request of: SHARLA HOOD Procedure: US OB transvaginal Obstetrical ultrasound, 1st trimester CLINICAL: vaginal bleeding, passed product TECHNIQUE: Transabdominal and transvaginal obstetrical ultrasound was performed. FINDINGS: Comparison: None. UTERUS: A single intrauterine gestation sac is visualized within the mid uterine body. Mean gestational sac diameter is 1.60 cm. Mean gestational age according to sac size is 5 weeks 6 days. There is no yolk sac or pole seen. Cervix is closed. OVARIES/ADNEXA: The right ovary measures 3.2 x 2.2 x 2.7 cm. There is a mildly complex thick-walled cyst in the right ovary at 1.5 cm that is likely the corpus luteum cyst . The left ovary measures 2.4 x 1.9 x 1.9 cm. There is color flow to both ovaries. No adnexal abnormality. OTHER FINDINGS: None. US/US OB transvaginal IMPRESSION: 1. Single intrauterine gestational sac in the mid uterine body without yolk sac or pole identified. Mean gestational sac size correlates with estimated gestational age of 5 weeks 6 days. Given patient's symptoms, this is probably a blighted ovum from failed rather than gestational sac of early before visualization of pole, but would confirm with serial beta-hCG values and follow-up pelvic ultrasound as clinically indicated. 2. Probable 1.5 cm corpus luteum cyst in right ovary. Otherwise, normal appearance of both ovaries. No adnexal abnormality. 3. Closed cervix. Electronically authenticated by: SAULO WARREN Date: 05/18/2023 15:12
[2023-05-18 14:44] LABS: HCG Qualitative Urine* POSITIVE (NEGATIVE)
[2023-05-18 15:05] LABS: Bilirubin Urine NEGATIVE (NEGATIVE); Blood Urine LARGE (NEGATIVE); Clarity Urine CLEAR (CLEAR); Color Urine YELLOW (YELLOW); Glucose Urine UA NEGATIVE (NEGATIVE); Ketones Urine NEGATIVE (NEGATIVE); Leukocyte Esterase Urine NEGATIVE (NEGATIVE); Nitrite Urine NEGATIVE (NEGATIVE); Protein Urine 30 mg/dL (NEG/TRACE); Specific Gravity Urine >=1.030 (1.005-1.025); Urobilinogen Urine 0.2 EU/dL (0.2-1.0); pH Urine 5.5 (5.0-9.0)
[2023-05-18 15:37] LABS: HCG Quantitative 17812 mIU/mL
--- NOTE | 2023-05-18 15:45 | ED.FEMALEGU1 ---
Documented by User: Iveth Yoder 05/18/23 15:56 HPI - Female Genitourinary General Chief complaint: Vaginal Bleeding Stated complaint: THINKS SHE'S MISCARRYING > 8 WKS Time Seen by Provider: 05/18/23 14:18 Source: patient Mode of arrival: walk-in Limitations: no limitations History of Present Illness HPI Narrative: 37-year-old female presents here with chief complaint of vaginal bleeding. Patient states she believes she is approximately 8 weeks . She states she had some spotting last evening and passed large clots earlier today. She denies any pain or cramping. She believes she is at least 8 weeks . She was due to have her intake with her OB office this next week. Patient states she is oh positive blood type Related Data Home Medications Medication Instructions Recorded Confirmed vits,calcium 21-iron fum 1 tab PO DAILY 09/16/22 10/12/22 14 mg iron-folic acid 400 mcg tablet ( Complete) Allergies Allergy/AdvReac Type Severity Reaction Status Date / Time sertraline [From Zoloft] AdvReac Mild Verified 09/16/22 12:11 Review of Systems ROS Narrative All Systems are negative except as noted/marked. PFSH PFSH Family History (Updated 10/09/22 @ 06:37 by Heydi Finn) Father Family history of hypertension Family history of diabetes mellitus Mother Family history of hypertension Family history of cancer Grandfather Family history of hypertension Social History (Updated 10/09/22 @ 06:14 by Heydi Finn) Within the past year, how often did you have a drink containing alcohol: never Within the past year, how often did you have six or more drinks on one occasion: never Score interpretation: A score less than 3 is consistent with normal alcohol consumption. Smoking status: Former smoker Non-prescribed substance use: denies use Highest level of school completed/degree received: some college, no degree Are you now , , , , never or living with a partner: Little interest or pleasure in doing things: not at all Feeling down, depressed, or hopeless: not at all Feel stressed/tense/nervous/anxious/difficulty sleeping: not at all Do you think of yourself as: straight/heterosexual Gender Identity: female Exam Narrative Exam Narrative: All Systems are negative except as noted/marked.All systems reviewed and otherwise negative Nurses note and vital signs reviewed and patient is not hypoxic. General: The patient appears well and in no apparent distress. Patient is resting comfortably on cart. Skin: Warm, dry, no pallor noted. There is no rash noted. Head: Normocephalic, atraumatic Eye: Normal conjunctiva, no drainage, EOMI. PERRL Ears, Nose, Mouth, and Throat: oral mucosa is moist. Nares patent. Mouth without vesicles. Ear canals patent. Tm's without Erythema Cardiovascular: Regular Rate and Rhythm Respiratory: Patient is in no distress, no accessory muscle use, lungs are clear to auscultation, no wheezing, rales or rhonchi Back: non-tender, no CVA tenderness bilaterally to percussion. GI: Normal bowel sounds, no tenderness to palpation, no masses appreciated. No rebound, guarding, or rigidity noted. Musculoskeletal: The patient has no evidence of calf tenderness, no pitting edema, symmetrical pulses noted bilaterally Neurological: A&O x4, normal speech Psychiatric: Cooperative Constitutional Vital Signs, click to edit/add: Last Vital Signs Temp 98 F 05/18/23 14:11 Pulse 81 05/18/23 14:11 Resp 16 05/18/23 14:11 BP 144/83 H 05/18/23 14:11 Pulse Ox 98 05/18/23 14:11 O2 Del Method Room Air 05/18/23 14:11 Course Vital Signs Vital signs: Vital Signs Temperature 98 F 05/18/23 14:11 Pulse Rate 81 05/18/23 14:11 Respiratory Rate 16 05/18/23 14:11 Blood Pressure 144/83 H 05/18/23 14:11 Pulse Oximetry 98 05/18/23 14:11 Oxygen Delivery Method Room Air 05/18/23 14:11 Temperature 98 F 05/18/23 14:11 Pulse Rate 81 05/18/23 14:11 Respiratory Rate 16 05/18/23 14:11 Blood Pressure 144/83 H 05/18/23 14:11 Pulse Oximetry 98 05/18/23 14:11 Oxygen Delivery Method Room Air 05/18/23 14:11 MDM - Female Genitourinary MDM Narrative Medical decision making narrative: Presented here with a chief complaint of vaginal bleeding. Patient states last known menstrual cycle was 03/17/23. Patient had thought she passed a large amount of blood earlier this morning. Ultrasound showed questionable blighted ovum with a no gestational sac patient thought she was 8 weeks show possibly 5 to 6 weeks. Patient's quant today is 17,000. Patient will follow-up with her T[employer] TR[employer] OPERATOR. She was made aware of her results. I also spoke to TANK TRUCK OPERATOR who cares for this patient he agrees with plan of care. Patient will follow-up with serial quant and repeat ultrasound next week. Patient agrees with plan of care Medical Records Attestation: I reviewed the patient's medical records. Lab Data Attestation: I reviewed the patient's lab results. Labs: Lab Results 05/18/23 05/18/23 Range/Units 14:35 14:52 HCG, Quant [id number] mIU/mL Urine Color Yellow (YELLOW) Urine Clarity Clear (CLEAR) Urine pH 5.5 (5.0-9.0) Ur Specific [place] >=1.030 A (1.005-1.025) Urine Protein 30 A (NEG/TRACE) mg/dL Urine Glucose (UA) Negative (NEGATIVE) mg/dL Urine Ketones Negative (NEGATIVE) mg/dL Urine Occult Blood Large A (NEGATIVE) Urine Nitrite Negative (NEGATIVE) Urine Bilirubin Negative (NEGATIVE) Urine Urobilinogen 0.2 (0.2-1.0) EU/dL Ur Leukocyte Esterase Negative (NEGATIVE) Urine HCG, Qual Positive A (NEGATIVE) Imaging Data US - abdomen: Attestation: I have reviewed the pertinent imaging results. Radiologist's impression: ITS Impressions Transvaginal US 05/18/23 14:18 IMPRESSION: 1. Single intrauterine gestational sac in the mid uterine body without yolk sac or pole identified. Mean gestational sac size correlates with estimated gestational age of 5 weeks 6 days. Given patient's symptoms, this is probably a blighted ovum from failed rather than gestational sac of early before visualization of pole, but would confirm with serial beta-hCG values and follow-up pelvic ultrasound as clinically indicated. 2. Probable 1.5 cm corpus luteum cyst in right ovary. Otherwise, normal appearance of both ovaries. No adnexal abnormality. 3. Closed cervix. Electronically authenticated by: SAULO WARREN Date: 05/18/2023 15:12 Discharge Plan Discharge Chief Complaint: Vaginal Bleeding Clinical Impression: Threatened , Vaginal bleeding Patient Disposition: Home, Self-Care Time of Disposition Decision: 15:42 Condition: Good Prescriptions / Home Meds: No Action Complete 14 mg iron- 400 mcg tablet 1 tab PO DAILY Instructions: Threatened Miscarriage (ED) Referrals: You Ramirez DO [Physician] - 05/22/23 Physician,Non-Staff, [Primary Care Provider] - 1 week Discharge Date/Time: 05/18/23 15:52 Stand Alone Forms: Portal Instructions Documented by User: Valdez Morton MD 05/18/23 20:49 HPI - Female Genitourinary General Chief complaint: Vaginal Bleeding Stated complaint: THINKS SHE'S MISCARRYING > 8 WKS Time Seen by Provider: 05/18/23 14:18 Related Data Home Medications Medication Instructions Recorded Confirmed vits,calcium 21-iron fum 1 tab PO DAILY 09/16/22 10/12/22 14 mg iron-folic acid 400 mcg tablet ( Complete) Allergies Allergy/AdvReac Type Severity Reaction Status Date / Time sertraline [From Zoloft] AdvReac Mild Verified 09/16/22 12:11 PFSH PFSH Family History (Updated 10/09/22 @ 06:37 by Hedyi Finn) Father Family history of hypertension Family history of diabetes mellitus Mother Family history of hypertension Family history of cancer Grandfather Family history of hypertension Social History (Updated 10/09/22 @ 06:14 by Heydi Finn) Within the past year, how often did you have a drink containing alcohol: never Within the past year, how often did you have six or more drinks on one occasion: never Score interpretation: A score less than 3 is consistent with normal alcohol consumption. Smoking status: Former smoker Non-prescribed substance use: denies use Highest level of school completed/degree received: some college, no degree Are you now , , , , never or living with a partner: Little interest or pleasure in doing things: not at all Feeling down, depressed, or hopeless: not at all Feel stressed/tense/nervous/anxious/difficulty sleeping: not at all Do you think of yourself as: straight/heterosexual Gender Identity: female Exam Constitutional Vital Signs, click to edit/add: Last Vital Signs Temp 98 F 05/18/23 14:11 Pulse 81 05/18/23 14:11 Resp 16 05/18/23 14:11 BP 144/83 H 05/18/23 14:11 Pulse Ox 98 05/18/23 14:11 O2 Del Method Room Air 05/18/23 14:11 Course Vital Signs Vital signs: Vital Signs Temperature 98 F 05/18/23 14:11 Pulse Rate 81 05/18/23 14:11 Respiratory Rate 16 05/18/23 14:11 Blood Pressure 144/83 H 05/18/23 14:11 Pulse Oximetry 98 05/18/23 14:11 Oxygen Delivery Method Room Air 05/18/23 14:11 Temperature 98 F 05/18/23 14:11 Pulse Rate 81 05/18/23 14:11 Respiratory Rate 16 05/18/23 14:11 Blood Pressure 144/83 H 05/18/23 14:11 Pulse Oximetry 98 05/18/23 14:11 Oxygen Delivery Method Room Air 05/18/23 14:11 MDM - Female Genitourinary MDM Narrative Medical decision making narrative: Presented here with a chief complaint of vaginal bleeding. Patient states last known menstrual cycle was 03/17/23. Patient had thought she passed a large amount of blood earlier this morning. Ultrasound showed questionable blighted ovum with a no gestational sac patient thought she was 8 weeks show possibly 5 to 6 weeks. Patient's quant today is 17,000. Patient will follow-up with her T[employer] TR[employer] OPERATOR Dr Ramirez and Iveth BLACKMAN were made aware of her results. I also spoke to TANK TR[employer] OPERATOR Dr Ramirez who cares for this patient he agrees with plan of care. Patient will follow-up with serial quant and repeat ultrasound next week. Patient agrees with plan of care Lab Data Labs: Lab Results 05/18/23 05/18/23 Range/Units 14:35 14:52 HCG, Quant [id number] mIU/mL Urine Color Yellow (YELLOW) Urine Clarity Clear (CLEAR) Urine pH 5.5 (5.0-9.0) Ur Specific [place] >=1.030 A (1.005-1.025) Urine Protein 30 A (NEG/TRACE) mg/dL Urine Glucose (UA) Negative (NEGATIVE) mg/dL Urine Ketones Negative (NEGATIVE) mg/dL Urine Occult Blood Large A (NEGATIVE) Urine Nitrite Negative (NEGATIVE) Urine Bilirubin Negative (NEGATIVE) Urine Urobilinogen 0.2 (0.2-1.0) EU/dL Ur Leukocyte Esterase Negative (NEGATIVE) Urine HCG, Qual Positive A (NEGATIVE) Imaging Data US - abdomen: Radiologist's impression: ITS Impressions Transvaginal US 05/18/23 14:18
== END 2023-05-18 15:52 | disposition home or self-care (01) ==
PROVIDERS: Physician Assistant; Emergency Provider Emergency Medicine
DX: O20.0 Threatened abortion (principal); Z3A.01 Less than 8 weeks gestation of pregnancy; Z87.891 Personal history of nicotine dependence
CPT/HCPCS: 36415; 76817; 81003; 84702; 84703; 86900; 86901; 99285

== ENCOUNTER 2023-05-20 13:01 | Outpatient (OUT) | payer OTHER, SELFPAY ==
--- OUTSIDE RECORDS SUMMARY | 2023-05-20 13:05 | XMS_ITS | CCD ---
Author Name Unknown Address [address] [facility] [address] [place] [address] Organization [facility] Care Team Providers Care Pest Control Service Representative Name Role Phone TAMIKADAPHNENohemi PIPER Attending Unavailable TANYA JOHNSON Primary Care Unavailable Leandro Robles Unavailable DONNY, DR ROB Feliciano Admitting Unavailable DONNY, DR ROB Feliciano Attending Unavailable DONNY, DR ROB Feliicano Consulting [facility] Primary Care Unavailable AYDEE [...] JACKSON Primary Care Unavailable AYESHA ., DR MCCOLUD Admitting Unavailable [place], DR CARIDAD Martin Consulting Unavailable AYESHA ., [...] Chlamydia trachomatis, JESE Negative Normal Negative [facility] Comment on above: Performed By: #### P TT, PT #### [facility] [address] [place], [place] [address] Dr. Todd Moreno Neisseria gonorrhoeae, JESE Negative Normal Negative [facility] Comment on above: Performed By: #### P TT, PT #### [facility] [address] [place], [place] [address] Dr. Todd Moreno VAGINITIS/VAGINOSIS DNA PROB Shaheed 06-01-2022 Tatyana species Negative Normal Negative [facility] Comment on above: Performed By: #### P TT, PT #### [facility] [address] [place] [address] [address] Todd Moreno Gardnerella vaginalis Negative Normal Negative [facility] Comment on above: Performed By: #### P TT, PT #### [facility] [address] [address] [address] Todd Moreno Trichomonas vaginalis Negative Normal Negative [facility] Comment on above: Performed By: #### P TT, PT #### [facility] [address] [address] [address] Todd Moreno HEP B SURFACE ANTIGEN SCREEN on 03-22-2022 HBsAg Screen Negative Normal Negative [facility] Comment on above: Performed By: #### H BSANS #### [facility] [address] [place] [address] Dr. Todd Moreno HEPATITIS C VIRUS AB W/ REFL EX QUANTon 03-22-2022 HCV AB 0.1 s/co ratio Normal 0.0-0.9 [facility] Comment on above: Performed By: #### P TT, PT #### [facility] [address] [place] [address] Dr. Todd Moreno Interpretation: Comment Normal [facility] Comment on above: Result Comment: Nega tive Not infected with HCV, unless recent infection is suspected or other evidence exists to indicate HCV infection. Performed By: #### P TT, PT #### [facility] [address] [place] [address] Dr. Todd Moreno HIV 1 AND 2 WITH REFLEXon HIV Screen 4th Generation wRfx Non-Reactive Normal Non Reactive [facility] Comment on above: Result Comment: HIV Negative HIV-1/HIV-2 antibodies and HIV-1 p24 antigen were NOT detected. There is no laboratory evidence of HIV infection. Performed By: #### H IV12 #### [facility] [address] [place] [address] Dr. Todd Moreno RPR QUANTon 03-22-2022 Rapid Plasma Reagin, Quant Non-Reactive Normal NonRea<1:1 [facility] Comment on above: Result Comment: Luis E dias Note: This test does not meet current guidelines for screening and diagnosis of syphilis. This test is intended for following treatment response in patients being treated for syphilis infection. To screen for syphilis infection, a reflex cascade that includes both RPR and a treponema-specific assay should be utilized, such as Treponema pallidum (Syphilis) Screening [place] (385828) or Rapid Plasma Reagin (RPR) Test With Reflex to Quantitative RPR and Confirmatory Treponema pallidum Antibodies (084319). Performed By: #### R PRQ #### [facility] [address] [place] [address] Dr. Todd Moreno RUBELLA AB IGGon 03-22-2022 Rubella Antibodies, IgG 5.11 index Normal Immune >0.99 [facility] Comment on above: Result Comment: Non- immune <0.90 Equivocal 0.90 - 0.99 Immune >0.99 Performed By: #### R PRQ #### [facility] [address] [place] [address] Dr. Todd Moreno CBC AUTO DIFFon 03-20-2022 BASO # 0.0 103/ul Normal 0.0-0.1 [facility] Comment on above: Performed By: #### P TT, PT #### [facility] [address] [place] [address] Dr. Todd Moreno Basophils/100 WBC (Bld) 0.3 % Normal 0.2-2.0 [facility] Comment on above: Performed By: #### P TT, PT #### [facility] [address] [place] [address] Dr. Todd Moreno EO # 0.1 103/ul Normal 0.0-0.7 [facility] Comment on above: Performed By: #### P TT, PT #### [facility] [address] [place] [address] Dr. Todd Moreno Eosinophils/100 WBC (Bld) 1.0 % Normal 0.9-7.0 [facility] Comment on above: Performed By: #### P TT, PT #### [facility] [address] [place] [address] Dr. Todd Moreno Erythrocyte distribution width (RBC) [Ratio] 14.4 % Normal 11.0-15.0 [facility] Comment on above: Performed By: #### P TT, PT #### [facility] [address] [place] [address] Dr. Todd Moreno Hematocrit (Bld) [Volume fraction] 38.2 % Normal 36.0-48.0 [facility] Comment on above: Performed By: #### P TT, PT #### [facility] [address] [place] [address] Dr. Todd Moreno Hemoglobin (Bld) [Mass/Vol] 12.2 g/dL Normal 12.0-16.0 [facility] Comment on above: Performed By: #### P TT, PT #### [facility] [address] [place] [address] Dr. Todd Moreno IG # 0.03 10e3/ul Normal 0.00-0.03 [facility] Comment on above: Performed By: #### P TT, PT #### [facility] [address] [place] [address] Dr. Todd Moreno IG % 0.3 % Normal 0.0-0.5 [facility] Comment on above: Performed By: #### P TT, PT #### [facility] [address] [place] [address] Dr. Todd Moreno LYMPH # 1.9 103/ul Normal 1.2-3.8 [facility] Comment on above: Performed By: #### P TT, PT #### [facility] [address] [place] [address] Dr. Todd Moreno Lymphocytes/100 WBC (Bld) 19.0 % Critically low 20.5-60.0 [facility] Comment on above: Performed By: #### P TT, PT #### [facility] [address] [place] [address] Dr. Todd Moreno MANUAL DIFF REQ NO Normal [facility] Comment on above: Performed By: #### P TT, PT #### [facility] [address] [place] [address] Dr. Todd Moreno MCH (RBC) [Entitic mass] 26.1 pg Critically low 26.7-34.0 [facility] Comment on above: Performed By: #### P TT, PT #### [facility] [address] [place] [address] Dr. Todd Moreno MCHC (RBC) [Mass/Vol] 31.9 g/dL Normal 29.9-35.2 [facility] Comment on above: Performed By: #### P TT, PT #### [facility] [address] [place] [address] Dr. Todd Moreno MCV (RBC) [Entitic vol] 81.6 fL Normal 81.0-99.0 [facility] Comment on above: Performed By: #### P TT, PT #### [facility] [address] [place] [address] Dr. Todd Moreno MONO # 0.4 103/ul Normal 0.3-0.8 [facility] Comment on above: Performed By: #### P TT, PT #### [facility] [address] [place] [address] Dr. Todd Moreno Monocytes/100 WBC (Bld) 4.4 % Normal 1.7-12.0 [facility] Comment on above: Performed By: #### P TT, PT #### [facility] [address] [place] [address] Dr. Todd Moreno NEUT # 7.5 103/ul Critically high 1.4-6.5 [facility] Comment on above: Performed By: #### P TT, PT #### [facility] [address] [place] [address] Dr. Todd Moreno Neutrophils/100 WBC (Bld) 75.0 % Normal 43.0-75.0 [facility] Comment on above: Performed By: #### P TT, PT #### [facility] [address] [place] [address] Dr. Todd Moreno Platelet mean volume (Bld) [Entitic vol] 10.4 fL Normal 9.5-13.5 [facility] Comment on above: Performed By: #### P TT, PT #### [facility] [address] [place] [address] Dr. Todd Moreno PLT 302 103/ul Normal 150-450 [facility] Comment on above: Performed By: #### P TT, PT #### [facility] [address] [place] [address] Dr. Todd Moreno RBC 4.68 106/ul Normal 4.20-5.40 [facility] Comment on above: Performed By: #### P TT, PT #### [facility] [address] [place] [address] Dr. Todd Moreno WBC 10.1 103/ul Normal 4.0-11.0 [facility] Comment on above: Performed By: #### P TT, PT #### [facility] [address] [place] [address] Dr. Todd Moreno CULTURE URINEon 03-20-2022 CULTURE URINE Culture Observations : MODERATE GROWTH OF MIXED GENITAL LORA. NO POTENTIAL PATHOGENS SEEN. Normal [facility] Comment on above: Performed By: #### P TT, PT #### [facility] [address] [place] [address] Dr. Todd Moreno GLYCOHEMOGLOBIN A1Con 2022 ADA RECOMMENDATION SEE BELOW Normal [facility] Comment on above: Result Comment: ADA RECOMMENDED LIMIT 4.0 - 6.0 ADA THERAPEUTIC TARGET < 7.0 ACTION SUGGESTED > 7.0 Performed By: #### A 1C #### [facility] [address] [place] [address] Dr. Todd Moreno Glucose [Mass/Vol] 105 mg/dL Normal [facility] Comment on above: Performed By: #### A 1C #### [facility] [address] [place] [address] Dr. Todd Moreno HbA1c (Bld) [Mass fraction] 5.3 % Normal 4.5-6.2 [facility] Comment on above: Performed By: #### A 1C #### [facility] [address] [place] [address] Dr. Todd Moreno BENJAMIN BOX TEST PT SEND OUTo n 03-20-2022 SENT TO REF LAB 03/20/2022 Normal [facility] Comment on above: Performed By: #### P TT, PT #### [facility] [address] [place] [address] Dr. Todd Moreno TYPE AND SCREENon 03-20-2022 TYPE AND SCREEN Negative Normal [facility] Comment on above: Performed By: #### P TT, PT #### [facility] [address] [place] [address] Dr. Todd Moreno US PREG TVon 02-24-2022 [...] by: CARIDAD DOBSON Date: 2022-02-24 16:16 Normal [facility] CULTURE URINEon 02-03-2022 CULTURE URINE Isolate 1 [...] F Oxacillin 0.5 S F Normal [facility] Comment on above: Performed By: #### P TT, PT #### [facility] [address] [place] [address] Dr. Todd Moreno US PREG TVon 02-01-2022 [...] ETHAN MERCER Date: 2022-01-31 22:05 Normal [facility] CBC AUTO DIFFon 01-31-2022 BASO # 0.1 103/ul Normal 0.0-0.1 [facility] Comment on above: Performed By: #### P TT, PT #### [facility] [address] [place] [address] [address] Todd Moreno Basophils/100 WBC (Bld) 0.8 % Normal 0.2-2.0 [facility] Comment on above: Performed By: #### P TT, PT #### [facility] [address] [place] [address] [address] Todd Moreno EO # 0.5 103/ul Normal 0.0-0.7 [facility] Comment on above: Performed By: #### P TT, PT #### [facility] [address] [place] [address] Dr. Todd Moreno Eosinophils/100 WBC (Bld) 5.4 % Normal 0.9-7.0 [facility] Comment on above: Performed By: #### P TT, PT #### [facility] [address] [place] [address] Dr. Todd Moreno Erythrocyte distribution width (RBC) [Ratio] 15.0 % Normal 11.0-15.0 [facility] Comment on above: Performed By: #### P TT, PT #### [facility] [address] [place] [address] Dr. Todd Moreno Hematocrit (Bld) [Volume fraction] 34.3 % Critically low 36.0-48.0 [facility] Comment on above: Performed By: #### P TT, PT #### [facility] [address] [place] [address] Dr. Todd Moreno Hemoglobin (Bld) [Mass/Vol] 11.2 g/dL Critically low 12.0-16.0 [facility] Comment on above: Performed By: #### P TT, PT #### [facility] [address] [place] [address] Dr. Todd Moreno IG # 0.02 10e3/ul Normal 0.00-0.03 [facility] Comment on above: Performed By: #### P TT, PT #### [facility] [address] [place] [address] Dr. Todd Moreno IG % 0.2 % Normal 0.0-0.5 [facility] Comment on above: Performed By: #### P TT, PT #### [facility] [address] [place] [address] Dr. Todd Moreno LYMPH # 2.7 103/ul Normal 1.2-3.8 [facility] Comment on above: Performed By: #### P TT, PT #### [facility] [address] [place] [address] Dr. Todd Moreno Lymphocytes/100 WBC (Bld) 29.9 % Normal 20.5-60.0 [facility] Comment on above: Performed By: #### P TT, PT #### [facility] [address] [place] [address] Dr. Todd Moreno MANUAL DIFF REQ NO Normal [facility] Comment on above: Performed By: #### P TT, PT #### [facility] [address] [place] [address] Dr. Todd Moreno MCH (RBC) [Entitic mass] 26.7 pg Normal 26.7-34.0 [facility] Comment on above: Performed By: #### P TT, PT #### [facility] [address] [place] [address] Dr. Todd Moreno MCHC (RBC) [Mass/Vol] 32.7 g/dL Normal 29.9-35.2 [facility] Comment on above: Performed By: #### P TT, PT #### [facility] [address] [place] [address] Dr. Todd Moreno MCV (RBC) [Entitic vol] 81.7 fL Normal 81.0-99.0 [facility] Comment on above: Performed By: #### P TT, PT #### [facility] [address] [place] [address] Dr. Todd Moreno MONO # 0.5 103/ul Normal 0.3-0.8 [facility] Comment on above: Performed By: #### P TT, PT #### [facility] [address] [place] [address] Dr. Todd Moreno Monocytes/100 WBC (Bld) 5.7 % Normal 1.7-12.0 [facility] Comment on above: Performed By: #### P TT, PT #### [facility] [address] [place] [address] Dr. Todd Moreno NEUT # 5.2 103/ul Normal 1.4-6.5 [facility] Comment on above: Performed By: #### P TT, PT #### [facility] [address] [place] [address] Dr. Todd Moreno Neutrophils/100 WBC (Bld) 58.0 % Normal 43.0-75.0 [facility] Comment on above: Performed By: #### P TT, PT #### [facility] [address] [place] [address] Dr. Todd Moreno Platelet mean volume (Bld) [Entitic vol] 10.4 fL Normal 9.5-13.5 [facility] Comment on above: Performed By: #### P TT, PT #### [facility] [address] [place] [address] Dr. Todd Moreno PLT 270 103/ul Normal 150-450 [facility] Comment on above: Performed By: #### P TT, PT #### [facility] [address] [place] [address] Dr. Todd Moreno RBC 4.20 106/ul Normal 4.20-5.40 [facility] Comment on above: Performed By: #### P TT, PT #### [facility] [address] [place] [address] Dr. Todd Moreno WBC 9.1 103/ul Normal 4.0-11.0 [facility] Comment on above: Performed By: #### P TT, PT #### [facility] [address] [place] [address] Dr. Todd Moreno ER URINE PROFILEon 2 Bilirubin Ql (U) Negative Normal NEGATIVE [facility] Comment on above: Performed By: #### P TT, PT #### [facility] [address] [place] [address] Dr. Todd Moreno Clarity (U) CLEAR Normal CLEAR [facility] Comment on above: Performed By: #### P TT, PT #### [facility] [address] [place] [address] Dr. Todd Moreno Color (U) YELLOW Normal YELLOW [facility] Comment on above: Performed By: #### P TT, PT #### [facility] [address] [place] [address] Dr. Todd Moreno ERUAHD A micrscopic examination will be performed if indicated. Normal [facility] Comment on above: Performed By: #### P TT, PT #### [facility] [address] [place] [address] [address] Todd Moreno Glucose Ql (U) Negative Normal NEGATIVE [facility] Comment on above: Performed By: #### P TT, PT #### [facility] [address] [place] [address] [address] Todd Moreno Hemoglobin Ql (U) TRACE-INTACT Abnormal NEGATIVE [facility] Comment on above: Performed By: #### P TT, PT #### [facility] [address] [place] [address] [address] Todd Moreno Ketones Ql (U) Negative Normal NEGATIVE [facility] Comment on above: Performed By: #### P TT, PT #### [facility] [address] [place] [address] Dr. Todd Moreno LEUKOCYTES SMALL Abnormal NEGATIVE [facility] Comment on above: Performed By: #### P TT, PT #### [facility] [address] [place] [address] [address] Todd Moreno Nitrite Ql (U) Negative Normal NEGATIVE [facility] Comment on above: Performed By: #### P TT, PT #### [facility] [address] [place] [address] Dr. Todd Moreno pH (U) 6.5 [pH] Normal 5-9 [facility] Comment on above: Performed By: #### P TT, PT #### [facility] [address] [place] [address] Dr. Todd Moreno SPEC GRAVITY 1.015 Normal 1.005-<=1.025 [facility] Comment on above: Performed By: #### P TT, PT #### [facility] [address] [place] [address] [address] Todd Moreno UA PROTEIN Negative Normal NEGATIVE/ TRACE [facility] Comment on above: Performed By: #### P TT, PT #### [facility] [address] [place] [address] Dr. Todd Moreno UR MICRO IND INDICATED Normal [facility] Comment on above: Performed By: #### P TT, PT #### [facility] [address] [place] [address] Dr. Todd Moreno Urobilinogen Qn (U) 0.2 {Tiffany'U}/dL Normal 0.2 - 1. 0 [facility] Comment on above: Performed By: #### P TT, PT #### [facility] [address] [place] [address] Dr. Todd Moreno LIPASEon 01-31-2022 Lipase [Catalytic activity/Vol] 123.0 U/L Normal 73.0-393.0 [facility] Comment on above: Performed By: #### C MP, LIPA #### [facility] [address] [place] [address] Dr. Todd Moreno PREG QUANT HCGon 01-31-2022 HCG QUANT 711 mIU/mL Normal [facility] Comment on above: Performed By: #### P TT, PT #### [facility] [address] [place] [address] Dr. Todd Moreno HCG RANGE SEE BELOW Normal [facility] Comment on above: Result Comment: 5-50 0.2-1 WEEK 50-500 1-2 WEEKS 100-5,000 2-3 WEEKS 500-10,000 3-4 WEEKS 1,000-50,000 4-5 WEEKS 10,000-100,000 5-6 WEEKS 15,000-200,000 6-8 WEEKS 10,000-100,000 2-3 MONTHS Performed By: #### P TT, PT #### [facility] [address] [place] [address] Dr. Todd Moreno PROF 14(COMP METB)on 022 Albumin [Mass/Vol] 3.7 g/dL Normal 3.4-5.0 [facility] Comment on above: Performed By: #### C MP, LIPA #### [facility] [address] [place] [address] Dr. Todd Moreno Albumin/Globulin [Mass ratio] 1.0 {ratio} Normal [facility] Comment on above: Performed By: #### C MP, LIPA #### [facility] [address] [place] [address] Dr. Todd Moreno ALP [Catalytic activity/Vol] 80 U/L Normal 46-116 [facility] Comment on above: Performed By: #### C MP, LIPA #### [facility] [address] [place] [address] [address] Todd Moreno ALT [Catalytic activity/Vol] 23 U/L Normal 14-59 [facility] Comment on above: Performed By: #### C MP, LIPA #### [facility] [address] [place] [address] [address] Todd Moreno Anion gap [Moles/Vol] 10.2 mmol/L Normal [facility] Comment on above: Performed By: #### C MP, LIPA #### [facility] [address] [place] [address] Dr. Todd Moreno AST [Catalytic activity/Vol] 14 U/L Critically low 15-37 [facility] Comment on above: Performed By: #### C VALERY, LIPA #### [facility] [address] [place] [address] Dr. Todd Moreno Bilirubin [Mass/Vol] 0.3 mg/dL Normal 0.2-1.0 [facility] Comment on above: Performed By: #### C VALERY, LIPA #### [facility] [address] [place] [address] Dr. Todd Moreno Calcium [Mass/Vol] 9.1 mg/dL Normal 8.5-10.1 [facility] Comment on above: Performed By: #### C MP, LIPA #### [facility] [address] [place] [address] Dr. Todd Moreno Chloride [Moles/Vol] 104 mmol/L Normal 98-107 [facility] Comment on above: Performed By: #### C MP, LIPA #### [facility] [address] [place] [address] [address] Todd Moreno CO2 [Moles/Vol] 26.8 mmol/L Normal 21.0-32.0 [facility] Comment on above: Performed By: #### C MP, LIPA #### [facility] [address] [address] [address] Todd Moreno Creatinine [Mass/Vol] 0.87 mg/dL Normal 0.55-1.02 [facility] Comment on above: Performed By: #### C MP, LIPA #### [facility] [address] [address] [address] Todd Moreno EGFR-AF [place] >60 Normal >=60 [facility] Comment on above: Performed By: #### C MP, LIPA #### [facility] [address] [address] [address] Todd Moreno EGFR-NON AF [place] >60 Normal >=60 [facility] Comment on above: Performed By: #### C MP, LIPA #### [facility] [address] [address] [address] Todd Moreno Globulin (S) [Mass/Vol] 3.7 g/dL Normal [facility] Comment on above: Performed By: #### C MP, LIPA #### [facility] [address] [place] [address] Dr. Todd Moreno Glucose [Mass/Vol] 98 mg/dL Normal 74-106 [facility] Comment on above: Performed By: #### C MP, LIPA #### [facility] [address] [place] [address] Dr. Todd Moreno Potassium [Moles/Vol] 4.0 mmol/L Normal 3.5-5.1 [facility] Comment on above: Performed By: #### C MP, LIPA #### [facility] [address] [place] [address] Dr. Todd Moreno Protein [Mass/Vol] 7.4 g/dL Normal 6.4-8.2 [facility] Comment on above: Performed By: #### C MP, LIPA #### [facility] [address] [address] [address] Todd Moreno Sodium [Moles/Vol] 137 mmol/L Normal 136-145 [facility] Comment on above: Performed By: #### C MP, LIPA #### [facility] [address] [place] [address] Dr. Todd Moreno Urea nitrogen [Mass/Vol] 15.0 mg/dL Normal 7.0-18.0 [facility] Comment on above: Performed By: #### C MP, LIPA #### [facility] [address] [place] [address] Dr. Todd Moreno Urea nitrogen/Creatinine [Mass ratio] 17.2 mg/mg Normal [facility] Comment on above: Performed By: #### C MP, LIPA #### [facility] [address] [place] [address] Dr. Todd Moreno URINE MICROSCOPIC ONLYon BACTERIA SMALL Abnormal NONE SEEN [facility] Comment on above: Performed By: #### P TT, PT #### [facility] [address] [place] [address] Dr. Todd Moreno Bacteria identified Cx Nom (U) INDICATED Normal [facility] Comment on above: Performed By: #### P TT, PT #### [facility] [address] [place] [address] Dr. Todd Moreno CAST NONE SEEN Normal NONE SEEN [facility] Comment on above: Performed By: #### P TT, PT #### [facility] [address] [place] [address] Dr. Todd Moreno Crystals LM Nom (Urine sed) NONE SEEN Normal NONE SEEN [facility] Comment on above: Performed By: #### P TT, PT #### [facility] [address] [place] [address] Dr. Todd Moreno Epithelial cells LM Ql (Urine sed) FEW Abnormal NONE SEEN /RARE [facility] Comment on above: Performed By: #### P TT, PT #### [facility] [address] [place] [address] Dr. Todd Moreno MUCOUS NONE SEEN Normal NONE SEEN [facility] Comment on above: Performed By: #### P TT, PT #### [facility] [address] [place] [address] Dr. Todd Moreno RBC 0-2 Normal 0-2 [facility] Comment on above: Performed By: #### P TT, PT #### [facility] [address] [address] [address] Todd Moreno WBC 10-20 Abnormal NONE SEEN [facility] Comment on above: Performed By: #### P TT, PT #### [facility] [id number] Todd Moreno ESTROGENon 10-20-2021 Estrogens, Total 68 pg/mL Normal [facility] Comment on above: Result Comment: Prep ubertal < 40 Female Cycle: 1-10 Days 16 - 328 11-20 Days 34 - 501 21-30 Days 48 - 350 Post-Menopausal 40 - 244 Performed By: #### P TT, PT #### [facility] [address] [place] [address] Dr. Todd Moreno ESTRADIOLon 10-16-2021 Estradiol 62.1 pg/mL Normal [facility] Comment on above: Result Comment: Adul t Female: Follicular phase 12.5 - 166.0 Ovulation phase 85.8 - 498.0 Luteal phase 43.8 - 211.0 Postmenopausal <6.0 - 54.7 1st trimester 215.0 - >4300.0 Ramos ECLIA methodology Performed By: #### E STRADI #### [facility] [address] [place] [address] Dr. Todd Moreno FSHon 10-16-2021 FSH 5.6 mIU/mL Normal [facility] Comment on above: Result Comment: Adul t Female: Follicular phase 3.5 - 12.5 Ovulation phase 4.7 - 21.5 Luteal phase 1.7 - 7.7 Postmenopausal 25.8 - 134.8 Performed By: #### P TT, PT #### [facility] [address] [place] [address] Dr. Todd Moreno LUTEINIZING HORMONE (LH)on 0 10-16-2021 LH 12.1 mIU/mL Normal [facility] Comment on above: Result Comment: Adul t Female: Follicular phase 2.4 - 12.6 Ovulation phase 14.0 - 95.6 Luteal phase 1.0 - 11.4 Postmenopausal 7.7 - 58.5 Performed By: #### P TT, PT #### [facility] [address] [place] [address] Dr. Todd Moreno CBC AUTO DIFFon 10-15-2021 BASO # 0.0 103/ul Normal 0.0-0.1 [facility] Comment on above: Performed By: #### P TT, PT #### [facility] [address] [place] [address] Dr. Todd Moreno Basophils/100 WBC (Bld) 0.6 % Normal 0.2-2.0 [facility] Comment on above: Performed By: #### P TT, PT #### [facility] [address] [place] [address] Dr. Todd Moreno EO # 0.1 103/ul Normal 0.0-0.7 [facility] Comment on above: Performed By: #### P TT, PT #### [facility] [address] [place] [address] Dr. Todd Moreno Eosinophils/100 WBC (Bld) 2.1 % Normal 0.9-7.0 [facility] Comment on above: Performed By: #### P TT, PT #### [facility] [address] [place] [address] Dr. Todd Moreno Erythrocyte distribution width (RBC) [Ratio] 14.0 % Normal 11.0-15.0 [facility] Comment on above: Performed By: #### P TT, PT #### [facility] [address] [place] [address] Dr. Todd Moreno Hematocrit (Bld) [Volume fraction] 37.0 % Normal 36.0-48.0 [facility] Comment on above: Performed By: #### P TT, PT #### [facility] [address] [place] [address] Dr. Todd Moreno Hemoglobin (Bld) [Mass/Vol] 11.6 g/dL Critically low 12.0-16.0 [facility] Comment on above: Performed By: #### P TT, PT #### [facility] [address] [place] [address] Dr. Todd Moreno IG # 0.01 10e3/ul Normal 0.00-0.03 [facility] Comment on above: Performed By: #### P TT, PT #### [facility] [address] [address] [address] Todd Moreno IG % 0.2 % Normal 0.0-0.5 [facility] Comment on above: Performed By: #### P TT, PT #### [facility] [address] [address] [address] Todd Moreno LYMPH # 2.2 103/ul Normal 1.2-3.8 [facility] Comment on above: Performed By: #### P TT, PT #### [facility] [address] [address] [address] Todd Moreno Lymphocytes/100 WBC (Bld) 33.1 % Normal 20.5-60.0 [facility] Comment on above: Performed By: #### P TT, PT #### [facility] [address] [place] [address] Dr. Todd Moreno MANUAL DIFF REQ NO Normal [facility] Comment on above: Performed By: #### P TT, PT #### [facility] [address] [address] [address] Todd Moreno MCH (RBC) [Entitic mass] 26.3 pg Critically low 26.7-34.0 [facility] Comment on above: Performed By: #### P TT, PT #### [facility] [address] [place] [address] Dr. Todd Moreno MCHC (RBC) [Mass/Vol] 31.4 g/dL Normal 29.9-35.2 [facility] Comment on above: Performed By: #### P TT, PT #### [facility] [address] [place] [address] Dr. Todd Moreno MCV (RBC) [Entitic vol] 83.9 fL Normal 81.0-99.0 [facility] Comment on above: Performed By: #### P TT, PT #### [facility] [address] [place] [address] Dr. Todd Moreno MONO # 0.2 103/ul Critically low 0.3-0.8 [facility] Comment on above: Performed By: #### P TT, PT #### [facility] [address] [place] [address] Dr. Todd Moreno Monocytes/100 WBC (Bld) 3.5 % Normal 1.7-12.0 [facility] Comment on above: Performed By: #### P TT, PT #### [facility] [address] [address] [address] Todd Moreno NEUT # 4.0 103/ul Normal 1.4-6.5 [facility] Comment on above: Performed By: #### P TT, PT #### [facility] [address] [place] [address] Dr. Todd Moreno Neutrophils/100 WBC (Bld) 60.5 % Normal 43.0-75.0 [facility] Comment on above: Performed By: #### P TT, PT #### [facility] [address] [place] [address] Dr. Todd Moreno Platelet mean volume (Bld) [Entitic vol] 10.6 fL Normal 9.5-13.5 [facility] Comment on above: Performed By: #### P TT, PT #### [facility] [address] [place] [address] Dr. Todd Moreno PLT 263 103/ul Normal 150-450 [facility] Comment on above: Performed By: #### P TT, PT #### [facility] [address] [place] [address] Dr. Todd Moreno RBC 4.41 106/ul Normal 4.20-5.40 [facility] Comment on above: Performed By: #### P TT, PT #### [facility] [address] [place] [address] Dr. Todd Moreno WBC 6.6 103/ul Normal 4.0-11.0 [facility] Comment on above: Performed By: #### P TT, PT #### [facility] [address] [place] [address] Dr. Todd Moreno FREE T4on 10-15-2021 Free T4 [Mass/Vol] 1.05 ng/dL Normal 0.76-1.46 [facility] Comment on above: Performed By: #### P TT, PT #### [facility] [address] [place] [address] Dr. Todd Moreno PROTIMEon 10-15-2021 INR Coag (PPP) [Relative time] 1.02 {INR} Normal [facility] Comment on above: Performed By: #### P TT, PT #### [facility] [address] [place] [address] Dr. Todd Moreno INR GUIDELINES SEE BELOW Normal [facility] Comment on above: Result Comment: RAMÓN RED INR: 2.0 - 3.0 CONDITIONS NOT LISTED BELOW 2.5 - 3.5 FOR PROSTHETIC HEART VALVE REPLACEMENT 2.5 - 3.5 RECURRENT THROMBOSIS Performed By: #### P TT, PT #### [facility] [address] [place] [address] Dr. Todd Moreno PT Coag (PPP) [Time] 11.0 s Normal 9.0-11.6 [facility] Comment on above: Performed By: #### P TT, PT #### [facility] [address] [place] [address] Dr. Todd Moreno PTTon 10-15-2021 aPTT Coag (Bld) [Time] 32.4 s Normal 22.3-36.2 [facility] Comment on above: Performed By: #### P TT, PT #### [facility] [address] [place] [address] Dr. Todd Moreno TSHon 10-15-2021 TSH 1.777 uIU/mL Normal 0.358-3.740 [facility] Comment on above: Performed By: #### P TT, PT #### [facility] [address] [place] [address] Dr. Todd Moreno PAP ACOG PANEL 2: 30 to 65on 10-10-2021 . . Normal [facility] Comment on above: Result Comment: Perf ormed at: WB Performed By: #### [id number] #### [facility] [address] [place] [address] Dr. Todd Moreno Age Gdln ACOG Testing 30-65 Normal [facility] Comment on above: Performed By: #### [id number] #### [facility] [address] [place] [address] Dr. Todd Moreno DIAGNOSIS: Comment Normal [facility] Comment on above: Result Comment: NEGA TIVE FOR INTRAEPITHELIAL LESION OR MALIGNANCY. Performed at: [facility] Performed By: #### [id number] #### [facility] [address] [address] [address] Todd Moreno HPV Aptima Negative Normal Negative [facility] Comment on above: Result Comment: This nucleic acid amplification test detects fourteen high-risk HPV types (16,18,31,33,35,39,45,51,52,56,58,59,66,68) without differentiation. Performed at: =G Performed By: #### [id number] #### [facility] [address] [place] [address] Dr. Todd Moreno Methodology: Comment Normal [facility] Comment on above: Result Comment: This liquid based ThinPrep(R) pap test was screened with the use of an image guided system. Performed at: WB Performed By: #### [id number] #### [facility] [address] [place] [address] Dr. Todd Moreno Note: Comment [facility] Comment on above: Result Comment: The Pap smear is a screening test designed to aid in the detection of premalignant and malignant conditions of the uterine cervix. It is not a diagnostic procedure and should not be used as the sole means of detecting cervical cancer. Both false-positive and false-negative reports do occur. . Performed at: WB Performed By: #### [id number] #### [facility] [address] [address] [address] Todd Moreno Performed by: Comment Normal [facility] Comment on above: Result Comment: Magalie Lemus Frog Shaker (ASCP) Performed at: WB Performed By: #### [id number] #### [facility] [address] [address] [address] Todd Moreno Specimen adequacy: Comment Normal [facility] Comment on above: Result Comment: Sati sfactory for evaluation. Endocervical and/or squamous metaplastic cells (endocervical component) are present. Performed at: WB Performed By: #### [id number] #### [facility] [address] [address] [address] Todd Moreno COVID-19 Antigenon 2 COVID-19 [...] its performance Corinne Disclaimer characteristic determined by [employer] and Corinne Disclaimer validated at [facility]. This Corinne Disclaimer test has not been [...] is terminated or revoked sooner. PERFORMED BY: [place] [address] PATHOLOGIST HOSPITALITY ASSOCIATE JONATHAN SHEPARD M.D. [facility] Comment on above: Performed By: #### S OFIANEG, COVID-19 CORINNE #### [facility] [address] [place], [place] [id number] [facility] HCG,Urineon 03-30-2021 Beta HCG ( test) Ql (U) Negative [facility] Comment on above: Result Comment: PERF ORMED BY: [place] [address] PATHOLOGIST HOSPITALITY ASSOCIATE JONATHAN SHEPARD M.D. Performed By: #### U HCG #### [facility] [address] [place] [address] Corinne Ag Negativeon 03-30-19 22 Corinne Ag Negative Negative Normal Negative [facility] Comment on above: Result Comment: This is a duplicate Corinne SARS Antigen (KAEL) result to be used for statistical tracking purpose only. PERFORMED BY: [place] [address] PATHOLOGIST HOSPITALITY ASSOCIATE JONATHAN SHEPARD M.D. Performed By: #### S OFIANEG, COVID-19 CORINNE #### [facility] [address] [place] [address] COVID-19 FRon 03-28-2021 SARS-CoV-2 (COVID-19) RNA JESE+probe Ql (Unsp spec) Negative Normal Negative [facility] Comment on above: Order Comment: Healt hcare Worker?: N Result Comment: Testing for SARS-CoV-2 by RT-PCR This test was developed and its performance characteristics determined by [employer]) and validated at the [facility]. This test has not been FDA cleared [...] is terminated or revoked sooner. PERFORMED BY: [place] [address] PATHOLOGIST HOSPITALITY ASSOCIATE JONATHAN SHEPARD M.D. Performed By: #### C OVID 19 [facility] #### [facility] [address] [place], [place] [id number] [facility] XR elbow LT 2Von 03-01-2021 XR elbow LT 2V [place] [address] XRay Report Signed Patient: Danyell Almaguer MR#: [id number] : 1985 Acct:[id number] Age/Sex: 35 / F ADM Date: 03/01/21 [place] [facility] Room: [facility] Attending Dr: Leandro Robles MD Ordering [...] Valdez Mcwilliams M.D.03/01/2021 1:47 PM Dictation Location: [address] [address] Transcribed By: [facility] 03/01/21 1347 Dictated By: Valdez Mcwilliams DO 03/01/21 1344 Signed By: 03/01/21 1347 [facility] XR FOREARM LEFT 2 VIEWSon XR FOREARM [...] are recommended in 7 to 10 days. [facility]/[employer] Workstation ID: [id number] Dictated by: MAR DAWSON on SunSep 08, 2020 11:41:42 PM EDT Transcribed by: SHERRILL SMYTH on SunSep 09, 2020 12:10:05 AM EDT Finalized by: MAR DAWSON on SunSep 09, 2020 12:16:26 AM EDT [facility] Comment on above: Order Comment: Injur y/Trauma [...] on SunSep 08, 2020 11:42:00 PM EDT [facility] Comment on above: Order Comment: Injur y/Trauma or Illness?:Injury/Trauma How long have you had these symptoms (acute/chronic)?:Acute Reason for exam?:fall, pain to left shoulder radiating down arm History of cancer?:no Surgeries, chemotherapy, or radiation?:no Type of Exam?:Initial Mechanism of injury?:fall Vital Signs Date Time Vital Sign Value Performing Clinician Erik wilson 03-01-2021 11:00-0500 Body height 170.18 cm Leandro Robles Other [employer] Other 03-01-2021 11:00-0500 Body mass index (BMI) [Ratio] 30.07 kg/m2 Leandro Robles Other [employer] Other 03-01-2021 11:00-0500 Body weight 87.09 kg Leandro Travis Other [employer] Other Encounters Encounter Date Encounter Type Care [...] . Facility:[facility] Start: 03-01-2021 End: 03-01-2021 ambulatory Leanrdo Robles Other [employer] Other Start: 03-01-2021 Encounter for other preprocedural examination Leandro Robles [facility] Start: 03-01-2021 Office outpatient ne w 45 minutes Leandro Robles [facility] Start: 09-09-2020 End: 09-09-2020 [facility] Payers Date Payer Category Payer Private Health Insurance [id number] 2019 Unknown [id number] 1985 Unknown [id number] 2.16. [id number] 1985 Unknown [id number] 2.16.84 [id number] 1985 Unknown [id number] 2.16.84 [id number] 1985 Unknown [id number] 2.16.84 [id number] 1986 Unknown [id number] 2.16.84 [id number] 1986 Unknown [id number] 2.16.84 [id number] 1986 Unknown [id number] 2.16.84 [id number] 1986 Unknown [id number] 2.16.840 .[id number] 1986 Unknown [id number] 2.16.840 .[id number] 1959 Self-pay 1959 Unknown [id number] 1959 Unknown [id number] 1959 Unknown [id number] Unknown [id number] 2.16.84 [id number] Social History Date Type Detail Facility Sex Assigned At [employer] Other Evaluation note 03-01-2021 Note Date & Type Note Facility 03-01-2021 Evaluation note Encounter Date Diagnosis Assessment Notes Feb, Closed fracture of capitellum of left humerus with routine healing (ICD-10 - S42.452D) MRI reviewed with patient as healing fractures within the elbow. Discussed that her lacking range of motion may be a shelter condition, with or without surgical intervention. Instructed [...] M24.022) Feb, Pre-op exam (ICD-10 - Z01.818) [facility] [employer] Other History general Narrative - Reported Note Date & Type Note Facility History general Narrative - Reported Type Medical History ADHD [facility] [employer] Other Summary Purpose Family History No Family [...] DATE CREATED AUTHOR AUTHOR'S ORGANIZ ATION 10/06/2021 [facility] DATE CREATED AUTHOR AUTHOR'S ORGANIZ ATION 06/08/2022 [facility] DATE CREATED AUTHOR AUTHOR'S ORGANIZ ATION 03/09/2023 [facility] EPIC REASON FOR VISIT [...] BE BASED ON THE PRIMARY CLINICAL RECORDS. [facility]. provides no warranty or guarantee of the accuracy or completeness of information in this document.
[2023-05-20 13:46] LABS: HCG Quantitative 17964 mIU/mL
== END 2023-05-20 13:02 | disposition home or self-care (01) ==
PROVIDERS: Visit Provider Physician Assistant
DX: Z32.00 Encounter for pregnancy test, result unknown (principal)
CPT/HCPCS: 36415; 84702

== ENCOUNTER 2023-05-22 12:02 | Outpatient (OUT) | payer OTHER, SELFPAY ==
--- OUTSIDE RECORDS SUMMARY | 2023-05-22 12:09 | XMS_ITS | CCD ---
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 Role Phone HUBER LUNDBERGDIJA Attending Unavailable TANYA JOHNSON Primary Care Unavailable Leandro Robles Unavailable DONNY, DR ROB Feliciano Admitting Unavailable DONNY, DR ROB Feliciano Attending Unavailable DONNY, DR ROB Feliciano Consulting Unavailable MISC, DR JACKSON Primary Care Unavailable AYDEE ., [...] Unavailable AYESHA ., DR MCCLOUD Admitting Unavailable ORANGEVALE, DR CARIDAD Martin Consulting Unavailable AYESHA ., [...] Unavailable MISC, DR JACKSON Primary Care Unavailable SHARLA HOOD Attending Unavailable SCOTT JOHNSON Attending Unavailable ROGERS HODGE [...] Chlamydia trachomatis, JESE Negative Normal Negative [facility] Comment on above: Performed By: #### P TT, PT #### [facility] [address] [address] [address] Todd Moreno Neisseria gonorrhoeae, JESE Negative Normal Negative [facility] Comment on above: Performed By: #### P TT, PT #### [facility] [address] [place], [place] [address] Dr. Todd Moreno VAGINITIS/VAGINOSIS DNA PROB Shaheed 06-01-2022 Tatyana species Negative Normal Negative [facility] Comment on above: Performed By: #### P TT, PT #### [facility] [address] [place] [address] Dr. Todd Moreno Gardnerella vaginalis Negative Normal Negative [facility] Comment on above: Performed By: #### P TT, PT #### [facility] [address] [address] [address] Todd Moreno Trichomonas vaginalis Negative Normal Negative [facility] Comment on above: Performed By: #### P TT, PT #### [facility] [address] [place] [address] Dr. Todd Moreno HEP B SURFACE ANTIGEN SCREEN on 03-22-2022 HBsAg Screen Negative Normal Negative [facility] Comment on above: Performed By: #### H BSANS #### [facility] [address] [place] [address] Dr. Todd Moreno HEPATITIS C VIRUS AB W/ REFL EX QUANTon 03-22-2022 HCV AB 0.1 s/co ratio Normal 0.0-0.9 [facility] Comment on above: Performed By: #### P TT, PT #### [facility] [address] [place] [address] Dr. Todd Moreno Interpretation: Comment Normal [facility] Comment on above: Result Comment: Nega tive Not infected with HCV, unless recent infection is suspected or other evidence exists to indicate HCV infection. Performed By: #### P TT, PT #### [facility] [address] [place] [address] Dr. Todd Moreno HIV 1 AND 2 WITH REFLEXon HIV Screen 4th Generation wRfx Non-Reactive Normal Non Reactive [facility] Comment on above: Result Comment: HIV Negative HIV-1/HIV-2 antibodies and HIV-1 p24 antigen were NOT detected. There is no laboratory evidence of HIV infection. Performed By: #### H IV12 #### [facility] [address] [place] [address] Dr. Todd Moreno RPR QUANTon 03-22-2022 Rapid Plasma Reagin, Quant Non-Reactive Normal NonRea<1:1 [facility] Comment on above: Result Comment: Luis E dias Note: This test does not meet current guidelines for screening and diagnosis of syphilis. This test is intended for following treatment response in patients being treated for syphilis infection. To screen for syphilis infection, a reflex cascade that includes both RPR and a treponema-specific assay should be utilized, such as Treponema pallidum (Syphilis) Screening [place] (844196) or Rapid Plasma Reagin (RPR) Test With Reflex to Quantitative RPR and Confirmatory Treponema pallidum Antibodies (486284). Performed By: #### R PRQ #### [facility] [address] [place] [address] Dr. Todd Moreno RUBELLA AB IGGon 03-22-2022 Rubella Antibodies, IgG 5.11 index Normal Immune >0.99 [facility] Comment on above: Result Comment: Non- immune <0.90 Equivocal 0.90 - 0.99 Immune >0.99 Performed By: #### R PRQ #### [facility] [address] [place] [address] Dr. Todd Moreno CBC AUTO DIFFon 03-20-2022 BASO # 0.0 103/ul Normal 0.0-0.1 [facility] Comment on above: Performed By: #### P TT, PT #### [facility] [address] [place] [address] Dr. Todd Moreno Basophils/100 WBC (Bld) 0.3 % Normal 0.2-2.0 [facility] Comment on above: Performed By: #### P TT, PT #### [facility] [address] [place] [address] Dr. Todd Moreno EO # 0.1 103/ul Normal 0.0-0.7 [facility] Comment on above: Performed By: #### P TT, PT #### [facility] [address] [place] [address] Dr. Todd Moreno Eosinophils/100 WBC (Bld) 1.0 % Normal 0.9-7.0 [facility] Comment on above: Performed By: #### P TT, PT #### [facility] [address] [place] [address] Dr. Todd Moreno Erythrocyte distribution width (RBC) [Ratio] 14.4 % Normal 11.0-15.0 [facility] Comment on above: Performed By: #### P TT, PT #### [facility] [address] [place] [address] Dr. Todd Moreno Hematocrit (Bld) [Volume fraction] 38.2 % Normal 36.0-48.0 [facility] Comment on above: Performed By: #### P TT, PT #### [facility] [address] [place] [address] Dr. Todd Moreno Hemoglobin (Bld) [Mass/Vol] 12.2 g/dL Normal 12.0-16.0 [facility] Comment on above: Performed By: #### P TT, PT #### [facility] [address] [place] [address] Dr. Todd Moreno IG # 0.03 10e3/ul Normal 0.00-0.03 [facility] Comment on above: Performed By: #### P TT, PT #### [facility] [address] [place] [address] Dr. Todd Moreno IG % 0.3 % Normal 0.0-0.5 [facility] Comment on above: Performed By: #### P TT, PT #### [facility] [address] [place] [address] Dr. Todd Moreno LYMPH # 1.9 103/ul Normal 1.2-3.8 [facility] Comment on above: Performed By: #### P TT, PT #### [facility] [address] [place] [address] Dr. Todd Moreno Lymphocytes/100 WBC (Bld) 19.0 % Critically low 20.5-60.0 [facility] Comment on above: Performed By: #### P TT, PT #### [facility] [address] [place] [address] Dr. Todd Moreno MANUAL DIFF REQ NO Normal [facility] Comment on above: Performed By: #### P TT, PT #### [facility] [address] [place] [address] Dr. Todd Moreno MCH (RBC) [Entitic mass] 26.1 pg Critically low 26.7-34.0 [facility] Comment on above: Performed By: #### P TT, PT #### [facility] [address] [place] [address] Dr. Todd Moreno MCHC (RBC) [Mass/Vol] 31.9 g/dL Normal 29.9-35.2 [facility] Comment on above: Performed By: #### P TT, PT #### [facility] [address] [place] [address] Dr. Todd Moreno MCV (RBC) [Entitic vol] 81.6 fL Normal 81.0-99.0 [facility] Comment on above: Performed By: #### P TT, PT #### [facility] [address] [place] [address] Dr. Todd Moreno MONO # 0.4 103/ul Normal 0.3-0.8 [facility] Comment on above: Performed By: #### P TT, PT #### [facility] [address] [place] [address] Dr. Todd Moreno Monocytes/100 WBC (Bld) 4.4 % Normal 1.7-12.0 [facility] Comment on above: Performed By: #### P TT, PT #### [facility] [address] [place] [address] Dr. Todd Moreno NEUT # 7.5 103/ul Critically high 1.4-6.5 [facility] Comment on above: Performed By: #### P TT, PT #### [facility] [address] [place] [address] Dr. Todd Moreno Neutrophils/100 WBC (Bld) 75.0 % Normal 43.0-75.0 [facility] Comment on above: Performed By: #### P TT, PT #### [facility] [address] [place] [address] Dr. Todd Moreno Platelet mean volume (Bld) [Entitic vol] 10.4 fL Normal 9.5-13.5 [facility] Comment on above: Performed By: #### P TT, PT #### [facility] [address] [address] [address] Todd Moreno PLT 302 103/ul Normal 150-450 [facility] Comment on above: Performed By: #### P TT, PT #### [facility] [address] [address] [address] Todd Moreno RBC 4.68 106/ul Normal 4.20-5.40 [facility] Comment on above: Performed By: #### P TT, PT #### [facility] [address] [address] [address] Todd Moreno WBC 10.1 103/ul Normal 4.0-11.0 [facility] Comment on above: Performed By: #### P TT, PT #### [facility] [address] [place] [address] Dr. Todd Moreno CULTURE URINEon 03-20-2022 CULTURE URINE Culture Observations : MODERATE GROWTH OF MIXED GENITAL LORA. NO POTENTIAL PATHOGENS SEEN. Normal [facility] Comment on above: Performed By: #### P TT, PT #### [facility] [address] [place] [address] Dr. Todd Moreno GLYCOHEMOGLOBIN A1Con 2022 ADA RECOMMENDATION SEE BELOW Normal [facility] Comment on above: Result Comment: ADA RECOMMENDED LIMIT 4.0 - 6.0 ADA THERAPEUTIC TARGET < 7.0 ACTION SUGGESTED > 7.0 Performed By: #### A 1C #### [facility] [address] [place] [address] Dr. Todd Moreno Glucose [Mass/Vol] 105 mg/dL Normal [facility] Comment on above: Performed By: #### A 1C #### [facility] [address] [place] [address] Dr. Todd Moreno HbA1c (Bld) [Mass fraction] 5.3 % Normal 4.5-6.2 [facility] Comment on above: Performed By: #### A 1C #### [facility] [address] [place] [address] Dr. Todd Moreno BENJAMIN BOX TEST PT SEND OUTo n 03-20-2022 SENT TO REF LAB 03/20/2022 Normal [facility] Comment on above: Performed By: #### P TT, PT #### [facility] [address] [place] [address] [id number] [address] Todd Moreno TYPE AND SCREENon 03-20-2022 TYPE AND SCREEN Negative Normal [facility] Comment on above: Performed By: #### P TT, PT #### [facility] [address] [place] [address] Dr. Todd Moreno US PREG TVon 02-24-2022 [...] DOBSON Date: 2022-02-24 16:16 Normal [facility] CULTURE URINEon 02-03-2022 CULTURE URINE Isolate 1 [...] F Oxacillin 0.5 S F Normal [facility] Comment on above: Performed By: #### P TT, PT #### [facility] [address] [address] [address] Todd Moreno US PREG TVon 02-01-2022 [...] ETHAN MERCER Date: 2022-01-31 22:05 Normal [facility] CBC AUTO DIFFon 01-31-2022 BASO # 0.1 103/ul Normal 0.0-0.1 [facility] Comment on above: Performed By: #### P TT, PT #### [facility] [address] [address] [address] Todd Moreno Basophils/100 WBC (Bld) 0.8 % Normal 0.2-2.0 [facility] Comment on above: Performed By: #### P TT, PT #### [facility] [address] [address] [address] Tdod Moreno EO # 0.5 103/ul Normal 0.0-0.7 [facility] Comment on above: Performed By: #### P TT, PT #### [facility] [address] [place] [address] Dr. Todd Moreno Eosinophils/100 WBC (Bld) 5.4 % Normal 0.9-7.0 [facility] Comment on above: Performed By: #### P TT, PT #### [facility] [address] [place] [address] Dr. Todd Moreno Erythrocyte distribution width (RBC) [Ratio] 15.0 % Normal 11.0-15.0 [facility] Comment on above: Performed By: #### P TT, PT #### [facility] [address] [place] [address] Dr. Todd Moreno Hematocrit (Bld) [Volume fraction] 34.3 % Critically low 36.0-48.0 [facility] Comment on above: Performed By: #### P TT, PT #### [facility] [address] [place] [address] Dr. Todd Moreno Hemoglobin (Bld) [Mass/Vol] 11.2 g/dL Critically low 12.0-16.0 [facility] Comment on above: Performed By: #### P TT, PT #### [facility] [address] [place] [address] Dr. Todd Moreno IG # 0.02 10e3/ul Normal 0.00-0.03 [facility] Comment on above: Performed By: #### P TT, PT #### [facility] [address] [place] [address] Dr. Todd Moreno IG % 0.2 % Normal 0.0-0.5 [facility] Comment on above: Performed By: #### P TT, PT #### [facility] [address] [place] [address] Dr. Todd Moreno LYMPH # 2.7 103/ul Normal 1.2-3.8 [facility] Comment on above: Performed By: #### P TT, PT #### [facility] [address] [place] [address] Dr. Todd Moreno Lymphocytes/100 WBC (Bld) 29.9 % Normal 20.5-60.0 [facility] Comment on above: Performed By: #### P TT, PT #### [facility] [address] [place] [address] Dr. Todd Moreno MANUAL DIFF REQ NO Normal [facility] Comment on above: Performed By: #### P TT, PT #### [facility] [address] [place] [address] Dr. Todd Moreno MCH (RBC) [Entitic mass] 26.7 pg Normal 26.7-34.0 [facility] Comment on above: Performed By: #### P TT, PT #### [facility] [address] [place] [address] Dr. Todd Moreno MCHC (RBC) [Mass/Vol] 32.7 g/dL Normal 29.9-35.2 [facility] Comment on above: Performed By: #### P TT, PT #### [facility] [address] [place] [address] Dr. Todd Moreno MCV (RBC) [Entitic vol] 81.7 fL Normal 81.0-99.0 [facility] Comment on above: Performed By: #### P TT, PT #### [facility] [address] [place] [address] Dr. Todd Moreno MONO # 0.5 103/ul Normal 0.3-0.8 [facility] Comment on above: Performed By: #### P TT, PT #### [facility] [address] [place] [address] Dr. Todd Moreno Monocytes/100 WBC (Bld) 5.7 % Normal 1.7-12.0 [facility] Comment on above: Performed By: #### P TT, PT #### [facility] [address] [place] [address] Dr. Todd Moreno NEUT # 5.2 103/ul Normal 1.4-6.5 [facility] Comment on above: Performed By: #### P TT, PT #### [facility] [address] [place] [address] Dr. Todd Moreno Neutrophils/100 WBC (Bld) 58.0 % Normal 43.0-75.0 [facility] Comment on above: Performed By: #### P TT, PT #### [facility] [address] [place] [address] Dr. Todd Moreno Platelet mean volume (Bld) [Entitic vol] 10.4 fL Normal 9.5-13.5 [facility] Comment on above: Performed By: #### P TT, PT #### [facility] [address] [place] [address] Dr. Todd Moreno PLT 270 103/ul Normal 150-450 [facility] Comment on above: Performed By: #### P TT, PT #### [facility] [address] [place] [address] Dr. Todd Moreno RBC 4.20 106/ul Normal 4.20-5.40 [facility] Comment on above: Performed By: #### P TT, PT #### [facility] [address] [place] [address] Dr. Todd Moreno WBC 9.1 103/ul Normal 4.0-11.0 [facility] Comment on above: Performed By: #### P TT, PT #### [facility] [address] [place] [address] Dr. Todd Moreno ER URINE PROFILEon 2 Bilirubin Ql (U) Negative Normal NEGATIVE [facility] Comment on above: Performed By: #### P TT, PT #### [facility] [address] [place] [address] Dr. Todd Moreno Clarity (U) CLEAR Normal CLEAR [facility] Comment on above: Performed By: #### P TT, PT #### [facility] [address] [place] [address] Dr. Todd Moreno Color (U) YELLOW Normal YELLOW [facility] Comment on above: Performed By: #### P TT, PT #### [facility] [address] [place] [address] Dr. Todd Moreno ERUAHD A micrscopic examination will be performed if indicated. Normal [facility] Comment on above: Performed By: #### P TT, PT #### [facility] [address] [address] [address] Todd Moreno Glucose Ql (U) Negative Normal NEGATIVE [facility] Comment on above: Performed By: #### P TT, PT #### [facility] [address] [place] [address] Dr. Todd Moreno Hemoglobin Ql (U) TRACE-INTACT Abnormal NEGATIVE [facility] Comment on above: Performed By: #### P TT, PT #### [facility] [address] [address] [address] Todd Moreno Ketones Ql (U) Negative Normal NEGATIVE [facility] Comment on above: Performed By: #### P TT, PT #### [facility] [address] [place] [address] Dr. Todd Moreno LEUKOCYTES SMALL Abnormal NEGATIVE [facility] Comment on above: Performed By: #### P TT, PT #### [facility] [address] [place] [address] Dr. Todd Moreno Nitrite Ql (U) Negative Normal NEGATIVE [facility] Comment on above: Performed By: #### P TT, PT #### [facility] [address] [place] [address] Dr. Todd Moreno pH (U) 6.5 [pH] Normal 5-9 [facility] Comment on above: Performed By: #### P TT, PT #### [facility] [address] [place] [address] Dr. Todd Moreno SPEC GRAVITY 1.015 Normal 1.005-<=1.025 [facility] Comment on above: Performed By: #### P TT, PT #### [facility] [address] [place] [address] Dr. Todd Moreno UA PROTEIN Negative Normal NEGATIVE/ TRACE [facility] Comment on above: Performed By: #### P TT, PT #### [facility] [address] [place] [address] Dr. Todd Moreno UR MICRO IND INDICATED Normal [facility] Comment on above: Performed By: #### P TT, PT #### [facility] [address] [place] [address] Dr. Todd Moreno Urobilinogen Qn (U) 0.2 {Tiffany'U}/dL Normal 0.2 - 1. 0 [facility] Comment on above: Performed By: #### P TT, PT #### [facility] [address] [place] [address] Dr. Todd Moreno LIPASEon 01-31-2022 Lipase [Catalytic activity/Vol] 123.0 U/L Normal 73.0-393.0 [facility] Comment on above: Performed By: #### C MP, LIPA #### [facility] [address] [place] [address] Dr. Todd Moreno PREG QUANT HCGon 01-31-2022 HCG QUANT 711 mIU/mL Normal [facility] Comment on above: Performed By: #### P TT, PT #### [facility] [address] [place] [address] Dr. Todd Moreno HCG RANGE SEE BELOW Normal [facility] Comment on above: Result Comment: 5-50 0.2-1 WEEK 50-500 1-2 WEEKS 100-5,000 2-3 WEEKS 500-10,000 3-4 WEEKS 1,000-50,000 4-5 WEEKS 10,000-100,000 5-6 WEEKS 15,000-200,000 6-8 WEEKS 10,000-100,000 2-3 MONTHS Performed By: #### P TT, PT #### [facility] [address] [place] [address] Dr. Todd Moreno PROF 14(COMP METB)on 022 Albumin [Mass/Vol] 3.7 g/dL Normal 3.4-5.0 [facility] Comment on above: Performed By: #### C MP, LIPA #### [facility] [address] [place] [address] Dr. Todd Moreno Albumin/Globulin [Mass ratio] 1.0 {ratio} Normal [facility] Comment on above: Performed By: #### C MP, LIPA #### [facility] [address] [address] [address] Todd Moreno ALP [Catalytic activity/Vol] 80 U/L Normal 46-116 [facility] Comment on above: Performed By: #### C MP, LIPA #### [facility] [address] [address] [address] Todd Moreno ALT [Catalytic activity/Vol] 23 U/L Normal 14-59 [facility] Comment on above: Performed By: #### C MP, LIPA #### [facility] [address] [address] [address] Todd Moreno Anion gap [Moles/Vol] 10.2 mmol/L Normal [facility] Comment on above: Performed By: #### C MP, LIPA #### [facility] [address] [place] [address] Dr. Todd Moreno AST [Catalytic activity/Vol] 14 U/L Critically low 15-37 [facility] Comment on above: Performed By: #### C MP, LIPA #### [facility] [address] [place] [address] Dr. Todd Moreno Bilirubin [Mass/Vol] 0.3 mg/dL Normal 0.2-1.0 [facility] Comment on above: Performed By: #### C MP, LIPA #### [facility] [address] [place] [address] Dr. Todd Moreno Calcium [Mass/Vol] 9.1 mg/dL Normal 8.5-10.1 [facility] Comment on above: Performed By: #### C MP, LIPA #### [facility] [address] [place] [address] Dr. Todd Moreno Chloride [Moles/Vol] 104 mmol/L Normal 98-107 [facility] Comment on above: Performed By: #### C MP, LIPA #### [facility] [address] [place] [address] Dr. Todd Moreno CO2 [Moles/Vol] 26.8 mmol/L Normal 21.0-32.0 [facility] Comment on above: Performed By: #### C MP, LIPA #### [facility] [address] [address] [address] Todd Moreno Creatinine [Mass/Vol] 0.87 mg/dL Normal 0.55-1.02 [facility] Comment on above: Performed By: #### C MP, LIPA #### [facility] [address] [address] [address] Todd Moreno EGFR-AF BURMESE >60 Normal >=60 [facility] Comment on above: Performed By: #### C MP, LIPA #### [facility] [address] [address] [address] Todd Moreno EGFR-NON AF BURMESE >60 Normal >=60 [facility] Comment on above: Performed By: #### C MP, LIPA #### [facility] [address] [address] [address] Todd Moreno Globulin (S) [Mass/Vol] 3.7 g/dL Normal [facility] Comment on above: Performed By: #### C MP, LIPA #### [facility] [address] [address] [address] Todd Moreno Glucose [Mass/Vol] 98 mg/dL Normal 74-106 [facility] Comment on above: Performed By: #### C MP, LIPA #### [facility] [address] [address] [address] Todd Moreno Potassium [Moles/Vol] 4.0 mmol/L Normal 3.5-5.1 [facility] Comment on above: Performed By: #### C MP, LIPA #### [facility] [address] [address] [address] Todd Moreno Protein [Mass/Vol] 7.4 g/dL Normal 6.4-8.2 [facility] Comment on above: Performed By: #### C MP, LIPA #### [facility] [address] [address] [address] Todd Moreno Sodium [Moles/Vol] 137 mmol/L Normal 136-145 [facility] Comment on above: Performed By: #### C MP, LIPA #### [facility] [address] [place] [address] Dr. Todd Moreno Urea nitrogen [Mass/Vol] 15.0 mg/dL Normal 7.0-18.0 [facility] Comment on above: Performed By: #### C MP, LIPA #### [facility] [address] [place] [address] Dr. Todd Moreno Urea nitrogen/Creatinine [Mass ratio] 17.2 mg/mg Normal [facility] Comment on above: Performed By: #### C MP, LIPA #### [facility] [address] [place] [address] Dr. Todd Moreno URINE MICROSCOPIC ONLYon BACTERIA SMALL Abnormal NONE SEEN [facility] Comment on above: Performed By: #### P TT, PT #### [facility] [address] [place] [address] Dr. Todd Moreno Bacteria identified Cx Nom (U) INDICATED Normal [facility] Comment on above: Performed By: #### P TT, PT #### [facility] [address] [place] [address] Dr. Todd Moreno CAST NONE SEEN Normal NONE SEEN [facility] Comment on above: Performed By: #### P TT, PT #### [facility] [address] [place] [address] Dr. Todd Moreno Crystals LM Nom (Urine sed) NONE SEEN Normal NONE SEEN [facility] Comment on above: Performed By: #### P TT, PT #### [facility] [address] [place] [address] Dr. Todd Moreno Epithelial cells LM Ql (Urine sed) FEW Abnormal NONE SEEN /RARE [facility] Comment on above: Performed By: #### P TT, PT #### [facility] [address] [place] [address] Dr. Todd Moreno MUCOUS NONE SEEN Normal NONE SEEN [facility] Comment on above: Performed By: #### P TT, PT #### [facility] [address] [place] [address] Dr. Todd Moreno RBC 0-2 Normal 0-2 [facility] Comment on above: Performed By: #### P TT, PT #### [facility] [address] [address] [address] Todd Moreno WBC 10-20 Abnormal NONE SEEN [facility] Comment on above: Performed By: #### P TT, PT #### [facility] [address] [place], [place] [address] Dr. Todd Moreno ESTROGENon 10-20-2021 Estrogens, Total 68 pg/mL [facility] Comment on above: Result Comment: Prep ubertal < 40 Female Cycle: 1-10 Days 16 - 328 11-20 Days 34 - 501 21-30 Days 48 - 350 Post-Menopausal 40 - 244 Performed By: #### P TT, PT #### [facility] [address] [place] [address] Dr. Todd Moreno ESTRADIOLon 10-16-2021 Estradiol 62.1 pg/mL Normal [facility] Comment on above: Result Comment: Adul t Female: Follicular phase 12.5 - 166.0 Ovulation phase 85.8 - 498.0 Luteal phase 43.8 - 211.0 Postmenopausal <6.0 - 54.7 1st trimester 215.0 - >4300.0 Ramos ECLIA methodology Performed By: #### E STRADI #### [facility] [address] [place] [address] Dr. Todd Moreno FSHon 10-16-2021 FSH 5.6 mIU/mL Normal [facility] Comment on above: Result Comment: Adul t Female: Follicular phase 3.5 - 12.5 Ovulation phase 4.7 - 21.5 Luteal phase 1.7 - 7.7 Postmenopausal 25.8 - 134.8 Performed By: #### P TT, PT #### [facility] [address] [address] [address] Todd Moreno LUTEINIZING HORMONE (LH)on 0 10-16-2021 LH 12.1 mIU/mL Normal [facility] Comment on above: Result Comment: Adul t Female: Follicular phase 2.4 - 12.6 Ovulation phase 14.0 - 95.6 Luteal phase 1.0 - 11.4 Postmenopausal 7.7 - 58.5 Performed By: #### P TT, PT #### [facility] [address] [place] [address] Dr. Todd Moreno CBC AUTO DIFFon 10-15-2021 BASO # 0.0 103/ul Normal 0.0-0.1 [facility] Comment on above: Performed By: #### P TT, PT #### [facility] [address] [place] [address] Dr. Todd Moreno Basophils/100 WBC (Bld) 0.6 % Normal 0.2-2.0 [facility] Comment on above: Performed By: #### P TT, PT #### [facility] [address] [place] [address] Dr. Todd Moreno EO # 0.1 103/ul Normal 0.0-0.7 [facility] Comment on above: Performed By: #### P TT, PT #### [facility] [address] [place] [address] Dr. Todd Moreno Eosinophils/100 WBC (Bld) 2.1 % Normal 0.9-7.0 [facility] Comment on above: Performed By: #### P TT, PT #### [facility] [address] [place] [address] Dr. Todd Moreno Erythrocyte distribution width (RBC) [Ratio] 14.0 % Normal 11.0-15.0 [facility] Comment on above: Performed By: #### P TT, PT #### [facility] [address] [place] [address] Dr. Todd Moreno Hematocrit (Bld) [Volume fraction] 37.0 % Normal 36.0-48.0 [facility] Comment on above: Performed By: #### P TT, PT #### [facility] [address] [place] [address] Dr. Todd Moreno Hemoglobin (Bld) [Mass/Vol] 11.6 g/dL Critically low 12.0-16.0 [facility] Comment on above: Performed By: #### P TT, PT #### [facility] [address] [place] [address] Dr. Todd Moreno IG # 0.01 10e3/ul Normal 0.00-0.03 [facility] Comment on above: Performed By: #### P TT, PT #### [facility] [address] [address] [address] Todd Moreno IG % 0.2 % Normal 0.0-0.5 [facility] Comment on above: Performed By: #### P TT, PT #### [facility] [address] [address] [address] Todd Moreno LYMPH # 2.2 103/ul Normal 1.2-3.8 [facility] Comment on above: Performed By: #### P TT, PT #### [facility] [address] [address] [address] Todd Moreno Lymphocytes/100 WBC (Bld) 33.1 % Normal 20.5-60.0 [facility] Comment on above: Performed By: #### P TT, PT #### [facility] [address] [place] [address] Dr. Todd Moreno MANUAL DIFF REQ NO Normal [facility] Comment on above: Performed By: #### P TT, PT #### [facility] [address] [address] [address] Todd Moreno MCH (RBC) [Entitic mass] 26.3 pg Critically low 26.7-34.0 [facility] Comment on above: Performed By: #### P TT, PT #### [facility] [address] [address] [address] Todd Moreno MCHC (RBC) [Mass/Vol] 31.4 g/dL Normal 29.9-35.2 [facility] Comment on above: Performed By: #### P TT, PT #### [facility] [address] [address] [address] Todd Moreno MCV (RBC) [Entitic vol] 83.9 fL Normal 81.0-99.0 [facility] Comment on above: Performed By: #### P TT, PT #### [facility] [address] [address] [address] Todd Moreno MONO # 0.2 103/ul Critically low 0.3-0.8 [facility] Comment on above: Performed By: #### P TT, PT #### [facility] [address] [place] [address] Dr. Todd Moreno Monocytes/100 WBC (Bld) 3.5 % Normal 1.7-12.0 [facility] Comment on above: Performed By: #### P TT, PT #### [facility] [address] [place] [address] Dr. Todd Moreno NEUT # 4.0 103/ul Normal 1.4-6.5 [facility] Comment on above: Performed By: #### P TT, PT #### [facility] [address] [place] [address] Dr. Todd Moreno Neutrophils/100 WBC (Bld) 60.5 % Normal 43.0-75.0 [facility] Comment on above: Performed By: #### P TT, PT #### [facility] [address] [place] [address] Dr. Todd Moreno Platelet mean volume (Bld) [Entitic vol] 10.6 fL Normal 9.5-13.5 [facility] Comment on above: Performed By: #### P TT, PT #### [facility] [address] [place] [address] Dr. Todd Moreno PLT 263 103/ul Normal 150-450 [facility] Comment on above: Performed By: #### P TT, PT #### [facility] [address] [place] [address] Dr. Todd Moreno RBC 4.41 106/ul Normal 4.20-5.40 [facility] Comment on above: Performed By: #### P TT, PT #### [facility] [address] [place] [address] Dr. Todd Moreno WBC 6.6 103/ul Normal 4.0-11.0 [facility] Comment on above: Performed By: #### P TT, PT #### [facility] [address] [place] [address] Dr. Todd Moreno FREE T4on 10-15-2021 Free T4 [Mass/Vol] 1.05 ng/dL Normal 0.76-1.46 [facility] Comment on above: Performed By: #### P TT, PT #### [facility] [address] [place] [address] Dr. Todd oMreno PROTIMEon 10-15-2021 INR Coag (PPP) [Relative time] 1.02 {INR} Normal [facility] Comment on above: Performed By: #### P TT, PT #### [facility] [address] [place] [address] Dr. Todd Moreno INR GUIDELINES SEE BELOW Normal [facility] Comment on above: Result Comment: RAMÓN RED INR: 2.0 - 3.0 CONDITIONS NOT LISTED BELOW 2.5 - 3.5 FOR PROSTHETIC HEART VALVE REPLACEMENT 2.5 - 3.5 RECURRENT THROMBOSIS Performed By: #### P TT, PT #### [facility] [address] [place] [address] Dr. Todd Moreno PT Coag (PPP) [Time] 11.0 s Normal 9.0-11.6 [facility] Comment on above: Performed By: #### P TT, PT #### [facility] [address] [place] [address] Dr. Todd Moreno PTTon 10-15-2021 aPTT Coag (Bld) [Time] 32.4 s Normal 22.3-36.2 [facility] Comment on above: Performed By: #### P TT, PT #### [facility] [address] [place] [address] Dr. Todd Moreno TSHon 10-15-2021 TSH 1.777 uIU/mL Normal 0.358-3.740 [facility] Comment on above: Performed By: #### P TT, PT #### [facility] [address] [place] [address] Dr. Todd Moreno PAP ACOG PANEL 2: 30 to 65on 10-10-2021 . . Normal [facility] Comment on above: Result Comment: Perf ormed at: WB Performed By: #### [id number] #### [facility] [address] [place] [address] Dr. Todd Moreno Age Gdln ACOG Testing 30-65 Normal [facility] Comment on above: Performed By: #### [id number] #### [facility] [address] [place] [address] Dr. Todd Moreno DIAGNOSIS: Comment Normal [facility] Comment on above: Result Comment: NEGA TIVE FOR INTRAEPITHELIAL LESION OR MALIGNANCY. Performed at: WB Performed By: #### [id number] #### [facility] [address] [address] [address] Todd Moreno HPV Aptima Negative Normal Negative [facility] Comment on above: Result Comment: This nucleic acid amplification test detects fourteen high-risk HPV types (16,18,31,33,35,39,45,51,52,56,58,59,66,68) without differentiation. Performed at: =G Performed By: #### [id number] #### [facility] [address] [place] [address] Dr. Todd Moreno Methodology: Comment Normal [facility] Comment on above: Result Comment: This liquid based ThinPrep(R) pap test was screened with the use of an image guided system. Performed at: WB Performed By: #### [id number] #### [facility] [address] [place] [address] Dr. Todd Moreno Note: Comment Normal [facility] Comment on above: Result Comment: The Pap smear is a screening test designed to aid in the detection of premalignant and malignant conditions of the uterine cervix. It is not a diagnostic procedure and should not be used as the sole means of detecting cervical cancer. Both false-positive and false-negative reports do occur. . Performed at: WB Performed By: #### [id number] #### [facility] [address] [address] [address] Todd Moreno Performed by: Comment Normal [facility] Comment on above: Result Comment: Magalie Lemus, Emergency Room Physician (ASCP) Performed at: WB Performed By: #### [id number] #### [facility] [address] [place] [address] Dr. Todd Moreno Specimen adequacy: Comment Normal [facility] Comment on above: Result Comment: Sati sfactory for evaluation. Endocervical and/or squamous metaplastic cells (endocervical component) are present. Performed at: WB Performed By: #### [id number] #### [facility] [address] [address] [address] Todd Moreno COVID-19 Antigenon 2 COVID-19 [...] its performance Corinne Disclaimer characteristic determined by [employer] and Corinne Disclaimer validated at [facility]. This Corinne Disclaimer test has not been [...] Disclaimer circumstances exist justifying the authorization of Croinne Disclaimer the emergency use of in vitro diagnostic tests for Corinne Disclaimer detection of SARS-CoV-2 virus and/or diagnosis of Corinne Disclaimer COVID-19 infection under section 564(b)(1) of the Corinne Disclaimer Act, 21 U.S.C. 360bbb-3(b)(1), unless the Corinne Disclaimer authorization is terminated or revoked sooner. PERFORMED BY: [place] [address] PATHOLOGIST FOOD SERVICE DIRECTOR JONATHAN SHEPARD M.D. [facility] Comment on above: Performed By: #### S OFIANEG, COVID-19 CORINNE #### [facility] [address] [place] [address] HCG,Urineon 03-30-2021 Beta HCG ( test) Ql (U) Negative [facility] Comment on above: Result Comment: PERF ORMED BY: [place] [address] PATHOLOGIST FOOD SERVICE DIRECTOR JONATHAN SHEPARD M.D. Performed By: #### U HCG #### [facility] [address] [place] [address] Corinne Ag Negativeon 03-30-19 22 Corinne Ag Negative Negative Normal Negative [facility] Comment on above: Result Comment: This is a duplicate Corinne SARS Antigen (KAEL) result to be used for statistical tracking purpose only. PERFORMED BY: [place] [address] PATHOLOGIST FOOD SERVICE DIRECTOR JONATHAN SHEPARD M.D. Performed By: #### S OFIANEG, COVID-19 CORINNE #### [facility] [address] [place] [address] COVID-19 FRon 03-28-2021 SARS-CoV-2 (COVID-19) RNA JESE+probe Ql (Unsp spec) Negative Normal Negative [facility] Comment on above: Order Comment: Healt hcare Worker?: N Result Comment: Testing for SARS-CoV-2 by RT-PCR This test was developed and its performance characteristics determined by [employer]) and validated at the [facility]. This test has not been FDA cleared [...] is terminated or revoked sooner. PERFORMED BY: [place] [address] PATHOLOGIST FOOD SERVICE DIRECTOR JONATHAN SHEPARD M.D. Performed By: #### C OVID [address] [facility] #### [facility] [address] [place], [place] [id number] [facility] XR elbow LT 2Von 03-01-2021 XR elbow LT 2V [facility] [place] [address] [place] [address] XRay Report Signed Patient: Danyell Almaguer MR#: [id number] : 1985 Acct:[id number] Age/Sex: 35 / F ADM Date: 03/01/21 Loc: [facility] Room: Type: [facility] Attending Dr: Leandro Robles MD Ordering [...] Valdez Mcwilliams M.D.03/01/2021 1:47 PM Dictation Location: [place] [address] Transcribed By: [facility] 03/01/21 1347 Dictated By: Valdez Mcwilliams DO 03/01/21 1344 Signed By: 03/01/21 1347 [facility] XR FOREARM LEFT 2 VIEWSon XR [...] are recommended in 7 to 10 days. [facility] Workstation ID: [id number] Dictated by: MAR DAWSON on SunSep 08, 2020 11:41:42 PM EDT Transcribed by: SHERRILL SMYTH on SunSep 09, 2020 12:10:05 AM EDT Finalized by: MAR DAWSON on SunSep 09, 2020 12:16:26 AM EDT [facility] Comment on above: Order Comment: [...] on SunSep 08, 2020 11:42:00 PM EDT [facility] Comment on above: Order Comment: Injur y/Trauma or Illness?:Injury/Trauma How long have you had these symptoms (acute/chronic)?:Acute Reason for exam?:fall, pain to left shoulder radiating down arm History of cancer?:no Surgeries, chemotherapy, or radiation?:no Type of Exam?:Initial Mechanism of injury?:fall Vital Signs Date Time Vital Sign Value Performing Clinician Erik wilson 03-01-2021 11:00-0500 Body height 170.18 cm Leandro Robles Other [facility] 03-01-2021 11:00-0500 Body mass index (BMI) [Ratio] 30.07 kg/m2 Leandro Travis Other [facility] Other 03-01-2021 11:00-0500 Body weight 87.09 kg Leandro Travis Other [facility] Other Encounters Encounter Date Encounter Type Care Provider Facility Start: 05-21-2023 End: 05-21-2023 ambulatory SHARLA HOOD Not Available Start: 03-08-2023 End: 03-08-2023 ambulatory ROGERS HODGE Not Available Start: 02-12-2023 End: 02-12-2023 ambulatory SCOTT JOHNSON Not Available Start: 05-30-2022 End: 05-30-[address] ROGERS HODGE . Facility:[facility] Start: 03-20-2022 End: 03-21-[address] ROGERS HODGE . Facility:[facility] Start: 02-24-2022 End: 02-25-[address] Facility:[facility] Start: 01-31-2022 End: 02-01-[address] ROB HINES Facility:[facility] Start: 10-15-2021 End: 10-16-[address] ROGERS HODGE . Facility:[facility] Start: 10-05-2021 End: 10-05-[address] ROGERS HODGE . Facility:[facility] Start: 03-01-2021 End: 03-01-2021 ambulatory Leandro Robles Other [facility] Start: 03-01-2021 Encounter for other preprocedural examination Leandro Robles [facility] Start: 03-01-2021 Office outpatient ne w 45 minutes Leandro Robles [facility] Start: 09-09-2020 End: 09-09-2020 [facility] Payers Date Payer Category Payer Private Health Insurance [id number] 2019 Unknown [id number] 1985 Unknown [id number] 2.16. [id number] 1985 Unknown [id number] 2.16.84 [id number] 1985 Unknown [id number] 2.16.84 [id number] 1985 Unknown [id number] 2.16.84 [id number] 1986 Unknown [id number] 2.16.84 [id number] 1986 Unknown [id number] 2.16.84 [id number] 1986 Unknown [id number] 2.16.84 [id number] 1986 Unknown [id number] 2.16.84 0.1.441353.3.579.2.1259 1986 Unknown [id number] 2.16.840 .1.687085.3.579.2.1259 1986 Unknown [id number] 2.16.840 .[id number] 1959 Self-pay 1959 Unknown [id number] 1959 Unknown [id number] 1959 Unknown [id number] Unknown [id number] 2.16.84 [id number] Social History Date Type Detail Facility Sex Assigned At [facility] Other Evaluation note 03-01-2021 Note Date & Type Note Facility 03-01-2021 Evaluation note Encounter Date Diagnosis Assessment Notes Feb, Closed fracture of capitellum of left humerus with routine healing (ICD-10 - S42.452D) MRI reviewed with patient as healing fractures within the elbow. 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 Instructed [...] M24.022) Feb, Pre-op exam (ICD-10 - Z01.818) [facility] Other History general Narrative - Reported Note Date & Type Note Facility History general Narrative - Reported Type Medical History ADHD [facility] Other Summary Purpose Family History No Family [...] DATE CREATED AUTHOR AUTHOR'S ORGANIZ ATION 10/06/2021 [facility] DATE CREATED AUTHOR AUTHOR'S ORGANIZ ATION 06/08/2022 [facility] DATE CREATED AUTHOR AUTHOR'S ORGANIZ ATION 05/21/2023 [facility] EPIC REASON FOR VISIT (unrecogniz [...] BE BASED ON THE PRIMARY CLINICAL RECORDS. [facility]. provides no warranty or guarantee of the accuracy or completeness of information in this document.
[2023-05-22 13:23] LABS: HCG Quantitative 4589 mIU/mL
== END 2023-05-22 12:03 | disposition home or self-care (01) ==
LOC: LAB 12:04
PROVIDERS: Visit Provider Physician Assistant
DX: O20.0 Threatened abortion (principal)
CPT/HCPCS: 36415; 84702

== ENCOUNTER 2023-05-24 10:58 | Outpatient (OUT) | payer OTHER, SELFPAY ==
--- OUTSIDE RECORDS SUMMARY | 2023-05-24 11:04 | XMS_ITS | CCD ---
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 Todd Moreno Neisseria gonorrhoeae, JESE Negative Normal Negative [facility] Comment on above: Performed By: #### P TT, PT #### [facility] [address] [place], [place] [address] Dr. Todd Moreno VAGINITIS/VAGINOSIS DNA PROB Shaheed 06-01-2022 Tatyana species Negative Normal Negative [facility] Comment on above: Performed By: #### P TT, PT #### [facility] [address] [place] [address] Dr. Todd Moreno Gardnerella vaginalis Negative Normal Negative [facility] Comment on above: Performed By: #### P TT, PT #### [facility] [address] [address] [address] Todd Moreno Trichomonas vaginalis Negative Normal Negative [facility] Comment on above: Performed By: #### P TT, PT #### [facility] [address] [place] [address] Dr. Todd Moreno HEP B SURFACE ANTIGEN SCREEN on 03-22-2022 HBsAg Screen Negative Normal Negative [facility] Comment on above: Performed By: #### H BSANS #### [facility] [address] [place] [address] Dr. Todd Moreno HEPATITIS C VIRUS AB W/ REFL EX QUANTon 03-22-2022 HCV AB 0.1 s/co ratio Normal 0.0-0.9 [facility] Comment on above: Performed By: #### P TT, PT #### [facility] [address] [place] [address] Dr. Todd Moreno Interpretation: Comment Normal [facility] Comment on above: Result Comment: Nega tive Not infected with HCV, unless recent infection is suspected or other evidence exists to indicate HCV infection. Performed By: #### P TT, PT #### [facility] [address] [place] [address] Dr. Todd Moreno HIV 1 AND 2 WITH REFLEXon HIV Screen 4th Generation wRfx Non-Reactive Normal Non Reactive [facility] Comment on above: Result Comment: HIV Negative HIV-1/HIV-2 antibodies and HIV-1 p24 antigen were NOT detected. There is no laboratory evidence of HIV infection. Performed By: #### H IV12 #### [facility] [address] [place] [address] Dr. Todd Moreno RPR QUANTon 03-22-2022 Rapid Plasma Reagin, Quant Non-Reactive Normal NonRea<1:1 [facility] Comment on above: Result Comment: Luis E dias Note: This test does not meet current guidelines for screening and diagnosis of syphilis. This test is intended for following treatment response in patients being treated for syphilis infection. To screen for syphilis infection, a reflex cascade that includes both RPR and a treponema-specific assay should be utilized, such as Treponema pallidum (Syphilis) Screening [place] (133266) or Rapid Plasma Reagin (RPR) Test With Reflex to Quantitative RPR and Confirmatory Treponema pallidum Antibodies (827282). Performed By: #### R PRQ #### [facility] [address] [place] [address] Dr. Todd Moreno RUBELLA AB IGGon 03-22-2022 Rubella Antibodies, IgG 5.11 index Normal Immune >0.99 [facility] Comment on above: Result Comment: Non- immune <0.90 Equivocal 0.90 - 0.99 Immune >0.99 Performed By: #### R PRQ #### [facility] [address] [place] [address] Dr. Todd Moreno CBC AUTO DIFFon 03-20-2022 BASO # 0.0 103/ul Normal 0.0-0.1 [facility] Comment on above: Performed By: #### P TT, PT #### [facility] [address] [place] [address] Dr. Todd Moreno Basophils/100 WBC (Bld) 0.3 % Normal 0.2-2.0 [facility] Comment on above: Performed By: #### P TT, PT #### [facility] [address] [place] [address] Dr. Todd Moreno EO # 0.1 103/ul Normal 0.0-0.7 [facility] Comment on above: Performed By: #### P TT, PT #### [facility] [address] [place] [address] Dr. Todd Moreno Eosinophils/100 WBC (Bld) 1.0 % Normal 0.9-7.0 [facility] Comment on above: Performed By: #### P TT, PT #### [facility] [address] [place] [address] Dr. Todd Moreno Erythrocyte distribution width (RBC) [Ratio] 14.4 % Normal 11.0-15.0 [facility] Comment on above: Performed By: #### P TT, PT #### [facility] [address] [place] [address] Dr. Todd Moreno Hematocrit (Bld) [Volume fraction] 38.2 % Normal 36.0-48.0 [facility] Comment on above: Performed By: #### P TT, PT #### [facility] [address] [place] [address] Dr. Todd Moreno Hemoglobin (Bld) [Mass/Vol] 12.2 g/dL Normal 12.0-16.0 [facility] Comment on above: Performed By: #### P TT, PT #### [facility] [address] [place] [address] Dr. Todd Moreno IG # 0.03 10e3/ul Normal 0.00-0.03 [facility] Comment on above: Performed By: #### P TT, PT #### [facility] [address] [place] [address] Dr. Todd Moreno IG % 0.3 % Normal 0.0-0.5 [facility] Comment on above: Performed By: #### P TT, PT #### [facility] [address] [place] [address] Dr. Todd Moreno LYMPH # 1.9 103/ul Normal 1.2-3.8 [facility] Comment on above: Performed By: #### P TT, PT #### [facility] [address] [place] [address] Dr. Todd Moreno Lymphocytes/100 WBC (Bld) 19.0 % Critically low 20.5-60.0 [facility] Comment on above: Performed By: #### P TT, PT #### [facility] [address] [place] [address] Dr. Todd Moreno MANUAL DIFF REQ NO Normal [facility] Comment on above: Performed By: #### P TT, PT #### [facility] [address] [place] [address] Dr. Todd Moreno MCH (RBC) [Entitic mass] 26.1 pg Critically low 26.7-34.0 [facility] Comment on above: Performed By: #### P TT, PT #### [facility] [address] [place] [address] Dr. Todd Moreno MCHC (RBC) [Mass/Vol] 31.9 g/dL Normal 29.9-35.2 [facility] Comment on above: Performed By: #### P TT, PT #### [facility] [address] [place] [address] Dr. Todd Moreno MCV (RBC) [Entitic vol] 81.6 fL Normal 81.0-99.0 [facility] Comment on above: Performed By: #### P TT, PT #### [facility] [address] [place] [address] Dr. Todd Moreno MONO # 0.4 103/ul Normal 0.3-0.8 [facility] Comment on above: Performed By: #### P TT, PT #### [facility] [address] [place] [address] Dr. Todd Moreno Monocytes/100 WBC (Bld) 4.4 % Normal 1.7-12.0 [facility] Comment on above: Performed By: #### P TT, PT #### [facility] [address] [place] [address] Dr. Todd Moreno NEUT # 7.5 103/ul Critically high 1.4-6.5 [facility] Comment on above: Performed By: #### P TT, PT #### [facility] [address] [place] [address] Dr. Todd Moreno Neutrophils/100 WBC (Bld) 75.0 % Normal 43.0-75.0 [facility] Comment on above: Performed By: #### P TT, PT #### [facility] [address] [place] [address] Dr. Todd Moreno Platelet mean volume (Bld) [Entitic vol] 10.4 fL Normal 9.5-13.5 [facility] Comment on above: Performed By: #### P TT, PT #### [facility] [address] [address] [address] Todd Moreno PLT 302 103/ul Normal 150-450 [facility] Comment on above: Performed By: #### P TT, PT #### [facility] [address] [address] [address] Todd Moreno RBC 4.68 106/ul Normal 4.20-5.40 [facility] Comment on above: Performed By: #### P TT, PT #### [facility] [address] [address] [address] Todd Moreno WBC 10.1 103/ul Normal 4.0-11.0 [facility] Comment on above: Performed By: #### P TT, PT #### [facility] [address] [place] [address] Dr. Todd Moreno CULTURE URINEon 03-20-2022 CULTURE URINE Culture Observations : MODERATE GROWTH OF MIXED GENITAL LORA. NO POTENTIAL PATHOGENS SEEN. Normal [facility] Comment on above: Performed By: #### P TT, PT #### [facility] [address] [place] [address] Dr. Todd Moreno GLYCOHEMOGLOBIN A1Con 2022 ADA RECOMMENDATION SEE BELOW Normal [facility] Comment on above: Result Comment: ADA RECOMMENDED LIMIT 4.0 - 6.0 ADA THERAPEUTIC TARGET < 7.0 ACTION SUGGESTED > 7.0 Performed By: #### A 1C #### [facility] [address] [place] [address] Dr. Todd Moreno Glucose [Mass/Vol] 105 mg/dL Normal [facility] Comment on above: Performed By: #### A 1C #### [facility] [address] [place] [address] Dr. Todd Moreno HbA1c (Bld) [Mass fraction] 5.3 % Normal 4.5-6.2 [facility] Comment on above: Performed By: #### A 1C #### [facility] [address] [place] [address] Dr. Todd Moreno BENJAMIN BOX TEST PT SEND OUTo n 03-20-2022 SENT TO REF LAB 03/20/2022 Normal [facility] Comment on above: Performed By: #### P TT, PT #### [facility] [address] [place] [address] [address] [address] Todd Moreno TYPE AND SCREENon 03-20-2022 TYPE AND SCREEN Negative Normal [facility] Comment on above: Performed By: #### P TT, PT #### [facility] [address] [place] [address] Dr. Todd Moreno US PREG TVon 02-24-2022 [...] by: CARIDAD DOBSON Date: 2022-02-24 16:16 Normal [facility] CULTURE URINEon 02-03-2022 CULTURE URINE Isolate 1 [...] F Oxacillin 0.5 S F Normal [facility] Comment on above: Performed By: #### P TT, PT #### [facility] [address] [address] [address] Todd Moreno US PREG TVon 02-01-2022 [...] ETHAN MERCER Date: 2022-01-31 22:05 Normal [facility] CBC AUTO DIFFon 01-31-2022 BASO # 0.1 103/ul Normal 0.0-0.1 [facility] Comment on above: Performed By: #### P TT, PT #### [facility] [address] [address] [address] Todd Moreno Basophils/100 WBC (Bld) 0.8 % Normal 0.2-2.0 [facility] Comment on above: Performed By: #### P TT, PT #### [facility] [address] [address] [address] Todd Moreno EO # 0.5 103/ul Normal 0.0-0.7 [facility] Comment on above: Performed By: #### P TT, PT #### [facility] [address] [place] [address] Dr. Todd Moreno Eosinophils/100 WBC (Bld) 5.4 % Normal 0.9-7.0 [facility] Comment on above: Performed By: #### P TT, PT #### [facility] [address] [place] [address] Dr. Todd Moreno Erythrocyte distribution width (RBC) [Ratio] 15.0 % Normal 11.0-15.0 [facility] Comment on above: Performed By: #### P TT, PT #### [facility] [address] [place] [address] Dr. Todd Moreno Hematocrit (Bld) [Volume fraction] 34.3 % Critically low 36.0-48.0 [facility] Comment on above: Performed By: #### P TT, PT #### [facility] [address] [place] [address] Dr. Todd Moreno Hemoglobin (Bld) [Mass/Vol] 11.2 g/dL Critically low 12.0-16.0 [facility] Comment on above: Performed By: #### P TT, PT #### [facility] [address] [place] [address] Dr. Todd Moreno IG # 0.02 10e3/ul Normal 0.00-0.03 [facility] Comment on above: Performed By: #### P TT, PT #### [facility] [address] [place] [address] Dr. Todd Moreno IG % 0.2 % Normal 0.0-0.5 [facility] Comment on above: Performed By: #### P TT, PT #### [facility] [address] [place] [address] Dr. Todd Moreno LYMPH # 2.7 103/ul Normal 1.2-3.8 [facility] Comment on above: Performed By: #### P TT, PT #### [facility] [address] [place] [address] Dr. Todd Moreno Lymphocytes/100 WBC (Bld) 29.9 % Normal 20.5-60.0 [facility] Comment on above: Performed By: #### P TT, PT #### [facility] [address] [place] [address] Dr. Todd Moreno MANUAL DIFF REQ NO Normal [facility] Comment on above: Performed By: #### P TT, PT #### [facility] [address] [place] [address] Dr. Todd Moreno MCH (RBC) [Entitic mass] 26.7 pg Normal 26.7-34.0 [facility] Comment on above: Performed By: #### P TT, PT #### [facility] [address] [place] [address] Dr. Todd Moreno MCHC (RBC) [Mass/Vol] 32.7 g/dL Normal 29.9-35.2 [facility] Comment on above: Performed By: #### P TT, PT #### [facility] [address] [place] [address] Dr. Todd Moreno MCV (RBC) [Entitic vol] 81.7 fL Normal 81.0-99.0 [facility] Comment on above: Performed By: #### P TT, PT #### [facility] [address] [place] [address] Dr. Todd Moreno MONO # 0.5 103/ul Normal 0.3-0.8 [facility] Comment on above: Performed By: #### P TT, PT #### [facility] [address] [place] [address] Dr. Todd Moreno Monocytes/100 WBC (Bld) 5.7 % Normal 1.7-12.0 [facility] Comment on above: Performed By: #### P TT, PT #### [facility] [address] [place] [address] Dr. Todd Moreno NEUT # 5.2 103/ul Normal 1.4-6.5 [facility] Comment on above: Performed By: #### P TT, PT #### [facility] [address] [place] [address] Dr. Todd Moreno Neutrophils/100 WBC (Bld) 58.0 % Normal 43.0-75.0 [facility] Comment on above: Performed By: #### P TT, PT #### [facility] [address] [place] [address] Dr. Todd Moreno Platelet mean volume (Bld) [Entitic vol] 10.4 fL Normal 9.5-13.5 [facility] Comment on above: Performed By: #### P TT, PT #### [facility] [address] [place] [address] Dr. Todd Moreno PLT 270 103/ul Normal 150-450 [facility] Comment on above: Performed By: #### P TT, PT #### [facility] [address] [place] [address] Dr. Todd Moreno RBC 4.20 106/ul Normal 4.20-5.40 [facility] Comment on above: Performed By: #### P TT, PT #### [facility] [address] [place] [address] Dr. Todd Moreno WBC 9.1 103/ul Normal 4.0-11.0 [facility] Comment on above: Performed By: #### P TT, PT #### [facility] [address] [place] [address] Dr. Todd Moreno ER URINE PROFILEon 2 Bilirubin Ql (U) Negative Normal NEGATIVE [facility] Comment on above: Performed By: #### P TT, PT #### [facility] [address] [place] [address] Dr. Todd Moreno Clarity (U) CLEAR Normal CLEAR [facility] Comment on above: Performed By: #### P TT, PT #### [facility] [address] [place] [address] Dr. Todd Moreno Color (U) YELLOW Normal YELLOW [facility] Comment on above: Performed By: #### P TT, PT #### [facility] [address] [place] [address] Dr. Todd Moreno ERUAHD A micrscopic examination will be performed if indicated. Normal [facility] Comment on above: Performed By: #### P TT, PT #### [facility] [address] [address] [address] Todd Moreno Glucose Ql (U) Negative Normal NEGATIVE [facility] Comment on above: Performed By: #### P TT, PT #### [facility] [address] [place] [address] Dr. Todd Moreno Hemoglobin Ql (U) TRACE-INTACT Abnormal NEGATIVE [facility] Comment on above: Performed By: #### P TT, PT #### [facility] [address] [address] [address] Todd Moreno Ketones Ql (U) Negative Normal NEGATIVE [facility] Comment on above: Performed By: #### P TT, PT #### [facility] [address] [place] [address] Dr. Todd Moreno LEUKOCYTES SMALL Abnormal NEGATIVE [facility] Comment on above: Performed By: #### P TT, PT #### [facility] [address] [place] [address] Dr. Todd Moreno Nitrite Ql (U) Negative Normal NEGATIVE [facility] Comment on above: Performed By: #### P TT, PT #### [facility] [address] [place] [address] Dr. Todd Moreno pH (U) 6.5 [pH] Normal 5-9 [facility] Comment on above: Performed By: #### P TT, PT #### [facility] [address] [place] [address] Dr. Todd Moreno SPEC GRAVITY 1.015 Normal 1.005-<=1.025 [facility] Comment on above: Performed By: #### P TT, PT #### [facility] [address] [place] [address] Dr. Todd Moreno UA PROTEIN Negative Normal NEGATIVE/ TRACE [facility] Comment on above: Performed By: #### P TT, PT #### [facility] [address] [place] [address] Dr. Todd Moreno UR MICRO IND INDICATED Normal [facility] Comment on above: Performed By: #### P TT, PT #### [facility] [address] [place] [address] Dr. Todd Moreno Urobilinogen Qn (U) 0.2 {Tiffany'U}/dL Normal 0.2 - 1. 0 [facility] Comment on above: Performed By: #### P TT, PT #### [facility] [address] [place] [address] Dr. Todd Moreno LIPASEon 01-31-2022 Lipase [Catalytic activity/Vol] 123.0 U/L Normal 73.0-393.0 [facility] Comment on above: Performed By: #### C MP, LIPA #### [facility] [address] [place] [address] Dr. Todd Moreno PREG QUANT HCGon 01-31-2022 HCG QUANT 711 mIU/mL Normal [facility] Comment on above: Performed By: #### P TT, PT #### [facility] [address] [place] [address] Dr. Todd Moreno HCG RANGE SEE BELOW Normal [facility] Comment on above: Result Comment: 5-50 0.2-1 WEEK 50-500 1-2 WEEKS 100-5,000 2-3 WEEKS 500-10,000 3-4 WEEKS 1,000-50,000 4-5 WEEKS 10,000-100,000 5-6 WEEKS 15,000-200,000 6-8 WEEKS 10,000-100,000 2-3 MONTHS Performed By: #### P TT, PT #### [facility] [address] [place] [address] Dr. Todd Moreno PROF 14(COMP METB)on 022 Albumin [Mass/Vol] 3.7 g/dL Normal 3.4-5.0 [facility] Comment on above: Performed By: #### C MP, LIPA #### [facility] [address] [place] [address] Dr. Todd Moreno Albumin/Globulin [Mass ratio] 1.0 {ratio} Normal [facility] Comment on above: Performed By: #### C MP, LIPA #### [facility] [address] [address] [address] Todd Moreno ALP [Catalytic activity/Vol] 80 U/L Normal 46-116 [facility] Comment on above: Performed By: #### C MP, LIPA #### [facility] [address] [address] [address] Todd Moreno ALT [Catalytic activity/Vol] 23 U/L Normal 14-59 [facility] Comment on above: Performed By: #### C MP, LIPA #### [facility] [address] [address] [address] Todd Moreno Anion gap [Moles/Vol] 10.2 mmol/L Normal [facility] Comment on above: Performed By: #### C MP, LIPA #### [facility] [address] [place] [address] Dr. Todd Moreno AST [Catalytic activity/Vol] 14 U/L Critically low 15-37 [facility] Comment on above: Performed By: #### C MP, LIPA #### [facility] [address] [place] [address] Dr. Todd Moreno Bilirubin [Mass/Vol] 0.3 mg/dL Normal 0.2-1.0 [facility] Comment on above: Performed By: #### C MP, LIPA #### [facility] [address] [place] [address] Dr. Todd Moreno Calcium [Mass/Vol] 9.1 mg/dL Normal 8.5-10.1 [facility] Comment on above: Performed By: #### C MP, LIPA #### [facility] [address] [place] [address] Dr. Todd Moreno Chloride [Moles/Vol] 104 mmol/L Normal 98-107 [facility] Comment on above: Performed By: #### C MP, LIPA #### [facility] [address] [place] [address] Dr. Todd Moreno CO2 [Moles/Vol] 26.8 mmol/L Normal 21.0-32.0 [facility] Comment on above: Performed By: #### C MP, LIPA #### [facility] [address] [address] [address] Todd Moreno Creatinine [Mass/Vol] 0.87 mg/dL Normal 0.55-1.02 [facility] Comment on above: Performed By: #### C MP, LIPA #### [facility] [address] [address] [address] Todd Moreno EGFR-AF GEORGIAN >60 Normal >=60 [facility] Comment on above: Performed By: #### C MP, LIPA #### [facility] [address] [address] [address] Todd Moreno EGFR-NON AF GEORGIAN >60 Normal >=60 [facility] Comment on above: Performed By: #### C MP, LIPA #### [facility] [address] [address] [address] Todd Moreno Globulin (S) [Mass/Vol] 3.7 g/dL Normal [facility] Comment on above: Performed By: #### C MP, LIPA #### [facility] [address] [address] [address] Todd Moreno Glucose [Mass/Vol] 98 mg/dL Normal 74-106 [facility] Comment on above: Performed By: #### C MP, LIPA #### [facility] [address] [address] [address] Todd Moreno Potassium [Moles/Vol] 4.0 mmol/L Normal 3.5-5.1 [facility] Comment on above: Performed By: #### C MP, LIPA #### [facility] [address] [address] [address] Todd Moreno Protein [Mass/Vol] 7.4 g/dL Normal 6.4-8.2 [facility] Comment on above: Performed By: #### C MP, LIPA #### [facility] [address] [address] [address] Todd Moreno Sodium [Moles/Vol] 137 mmol/L Normal 136-145 [facility] Comment on above: Performed By: #### C MP, LIPA #### [facility] [address] [place] [address] Dr. Todd Moreno Urea nitrogen [Mass/Vol] 15.0 mg/dL Normal 7.0-18.0 [facility] [facility] Comment on above: Performed By: #### C MP, LIPA #### [facility] [address] [place] [address] Dr. Todd Moreno Urea nitrogen/Creatinine [Mass ratio] 17.2 mg/mg Normal [facility] Comment on above: Performed By: #### C MP, LIPA #### [facility] [address] [place] [address] Dr. Todd Moreno URINE MICROSCOPIC ONLYon BACTERIA SMALL Abnormal NONE SEEN [facility] Comment on above: Performed By: #### P TT, PT #### [facility] [address] [place] [address] Dr. Todd Moreno Bacteria identified Cx Nom (U) INDICATED Normal [facility] Comment on above: Performed By: #### P TT, PT #### [facility] [address] [place] [address] Dr. Todd Moreno CAST NONE SEEN Normal NONE SEEN [facility] Comment on above: Performed By: #### P TT, PT #### [facility] [address] [place] [address] Dr. Todd Moreno Crystals LM Nom (Urine sed) NONE SEEN Normal NONE SEEN [facility] Comment on above: Performed By: #### P TT, PT #### [facility] [address] [place] [address] Dr. Todd Moreno Epithelial cells LM Ql (Urine sed) FEW Abnormal NONE SEEN /RARE [facility] Comment on above: Performed By: #### P TT, PT #### [facility] [address] [place] [address] Dr. Todd Moreno MUCOUS NONE SEEN Normal NONE SEEN [facility] Comment on above: Performed By: #### P TT, PT #### [facility] [address] [place] [address] Dr. Todd Moreno RBC 0-2 Normal 0-2 [facility] Comment on above: Performed By: #### P TT, PT #### [facility] [address] [address] [address] Todd Moreno WBC 10-20 Abnormal NONE SEEN [facility] Comment on above: Performed By: #### P TT, PT #### [facility] [address] [place], [place] [address] Dr. Todd Moreno ESTROGENon 10-20-2021 Estrogens, Total 68 pg/mL Normal [facility] Comment on above: Result Comment: Prep ubertal < 40 Female Cycle: 1-10 Days 16 - 328 11-20 Days 34 - 501 21-30 Days 48 - 350 Post-Menopausal 40 - 244 Performed By: #### P TT, PT #### [facility] [address] [place] [address] Dr. Todd Moreno ESTRADIOLon 10-16-2021 Estradiol 62.1 pg/mL Normal [facility] Comment on above: Result Comment: Adul t Female: Follicular phase 12.5 - 166.0 Ovulation phase 85.8 - 498.0 Luteal phase 43.8 - 211.0 Postmenopausal <6.0 - 54.7 1st trimester 215.0 - >4300.0 Ramos ECLIA methodology Performed By: #### E STRADI #### [facility] [address] [place] [address] Dr. Todd Moreno FSHon 10-16-2021 FSH 5.6 mIU/mL Normal [facility] Comment on above: Result Comment: Adul t Female: Follicular phase 3.5 - 12.5 Ovulation phase 4.7 - 21.5 Luteal phase 1.7 - 7.7 Postmenopausal 25.8 - 134.8 Performed By: #### P TT, PT #### [facility] [address] [address] [address] Todd Moreno LUTEINIZING HORMONE (LH)on 0 10-16-2021 LH 12.1 mIU/mL Normal [facility] Comment on above: Result Comment: Adul t Female: Follicular phase 2.4 - 12.6 Ovulation phase 14.0 - 95.6 Luteal phase 1.0 - 11.4 Postmenopausal 7.7 - 58.5 Performed By: #### P TT, PT #### [facility] [address] [place] [address] Dr. Todd Morneo CBC AUTO DIFFon 10-15-2021 BASO # 0.0 103/ul Normal 0.0-0.1 [facility] Comment on above: Performed By: #### P TT, PT #### [facility] [address] [place] [address] Dr. Todd Moreno Basophils/100 WBC (Bld) 0.6 % Normal 0.2-2.0 [facility] Comment on above: Performed By: #### P TT, PT #### [facility] [address] [place] [address] Dr. Todd Moreno EO # 0.1 103/ul Normal 0.0-0.7 [facility] Comment on above: Performed By: #### P TT, PT #### [facility] [address] [place] [address] Dr. Todd Moreno Eosinophils/100 WBC (Bld) 2.1 % Normal 0.9-7.0 [facility] Comment on above: Performed By: #### P TT, PT #### [facility] [address] [place] [address] Dr. Todd Morneo Erythrocyte distribution width (RBC) [Ratio] 14.0 % Normal 11.0-15.0 [facility] Comment on above: Performed By: #### P TT, PT #### [facility] [address] [place] [address] Dr. Todd Moreno Hematocrit (Bld) [Volume fraction] 37.0 % Normal 36.0-48.0 [facility] Comment on above: Performed By: #### P TT, PT #### [facility] [address] [place] [address] Dr. Todd Moreno Hemoglobin (Bld) [Mass/Vol] 11.6 g/dL Critically low 12.0-16.0 [facility] Comment on above: Performed By: #### P TT, PT #### [facility] [address] [place] [address] Dr. Todd Moreno IG # 0.01 10e3/ul Normal 0.00-0.03 [facility] Comment on above: Performed By: #### P TT, PT #### [facility] [address] [address] [address] Todd Moreno IG % 0.2 % Normal 0.0-0.5 [facility] Comment on above: Performed By: #### P TT, PT #### [facility] [address] [address] [address] Todd Moreno LYMPH # 2.2 103/ul Normal 1.2-3.8 [facility] Comment on above: Performed By: #### P TT, PT #### [facility] [address] [address] [address] Todd Moreno Lymphocytes/100 WBC (Bld) 33.1 % Normal 20.5-60.0 [facility] Comment on above: Performed By: #### P TT, PT #### [facility] [address] [place] [address] Dr. Todd Moreno MANUAL DIFF REQ NO Normal [facility] Comment on above: Performed By: #### P TT, PT #### [facility] [address] [address] [address] Todd Moreno MCH (RBC) [Entitic mass] 26.3 pg Critically low 26.7-34.0 [facility] Comment on above: Performed By: #### P TT, PT #### [facility] [address] [address] [address] Todd Moreno MCHC (RBC) [Mass/Vol] 31.4 g/dL Normal 29.9-35.2 [facility] Comment on above: Performed By: #### P TT, PT #### [facility] [address] [address] [address] Todd Moreno MCV (RBC) [Entitic vol] 83.9 fL Normal 81.0-99.0 [facility] Comment on above: Performed By: #### P TT, PT #### [facility] [address] [address] [address] Todd Moreno MONO # 0.2 103/ul Critically low 0.3-0.8 [facility] Comment on above: Performed By: #### P TT, PT #### [facility] [address] [place] [address] Dr. Todd Moreno Monocytes/100 WBC (Bld) 3.5 % Normal 1.7-12.0 [facility] Comment on above: Performed By: #### P TT, PT #### [facility] [address] [place] [address] Dr. Todd Moreno NEUT # 4.0 103/ul Normal 1.4-6.5 [facility] Comment on above: Performed By: #### P TT, PT #### [facility] [address] [place] [address] Dr. Todd Moreno Neutrophils/100 WBC (Bld) 60.5 % Normal 43.0-75.0 [facility] Comment on above: Performed By: #### P TT, PT #### [facility] [address] [place] [address] Dr. Todd Moreno Platelet mean volume (Bld) [Entitic vol] 10.6 fL Normal 9.5-13.5 [facility] Comment on above: Performed By: #### P TT, PT #### [facility] [address] [place] [address] Dr. Todd Moreno PLT 263 103/ul Normal 150-450 [facility] Comment on above: Performed By: #### P TT, PT #### [facility] [address] [place] [address] Dr. Todd Moreno RBC 4.41 106/ul Normal 4.20-5.40 [facility] Comment on above: Performed By: #### P TT, PT #### [facility] [address] [place] [address] Dr. Todd Moreno WBC 6.6 103/ul Normal 4.0-11.0 [facility] Comment on above: Performed By: #### P TT, PT #### [facility] [address] [place] [address] Dr. Todd Moreno FREE T4on 10-15-2021 Free T4 [Mass/Vol] 1.05 ng/dL Normal 0.76-1.46 [facility] Comment on above: Performed By: #### P TT, PT #### [facility] [address] [place] [address] Dr. Todd Moreno PROTIMEon 10-15-2021 INR Coag (PPP) [Relative time] 1.02 {INR} Normal [facility] Comment on above: Performed By: #### P TT, PT #### [facility] [address] [place] [address] Dr. Todd Moreno INR GUIDELINES SEE BELOW Normal [facility] Comment on above: Result Comment: ARMÓN RED INR: 2.0 - 3.0 CONDITIONS NOT LISTED BELOW 2.5 - 3.5 FOR PROSTHETIC HEART VALVE REPLACEMENT 2.5 - 3.5 RECURRENT THROMBOSIS Performed By: #### P TT, PT #### [facility] [address] [place] [address] Dr. Todd Moreno PT Coag (PPP) [Time] 11.0 s Normal 9.0-11.6 [facility] Comment on above: Performed By: #### P TT, PT #### [facility] [address] [place] [address] Dr. Todd Moreno PTTon 10-15-2021 aPTT Coag (Bld) [Time] 32.4 s Normal 22.3-36.2 [facility] Comment on above: Performed By: #### P TT, PT #### [facility] [address] [place] [address] Dr. Todd Moreno TSHon 10-15-2021 TSH 1.777 uIU/mL Normal 0.358-3.740 [facility] Comment on above: Performed By: #### P TT, PT #### [facility] [address] [place] [address] Dr. Todd Moreno PAP ACOG PANEL 2: 30 to 65on 10-10-2021 . . Normal [facility] Comment on above: Result Comment: Perf ormed at: WB Performed By: #### [id number] #### [facility] [address] [place] [address] Dr. Todd Moreno Age Gdln ACOG Testing 30-65 Normal [facility] Comment on above: Performed By: #### [id number] #### [facility] [address] [place] [address] Dr. Todd Moreno DIAGNOSIS: Comment Normal [facility] Comment on above: Result Comment: NEGA TIVE FOR INTRAEPITHELIAL LESION OR MALIGNANCY. Performed at: WB Performed By: #### [id number] #### [facility] [address] [address] [address] Todd Moreno HPV Aptima Negative Normal Negative [facility] Comment on above: Result Comment: This nucleic acid amplification test detects fourteen high-risk HPV types (16,18,31,33,35,39,45,51,52,56,58,59,66,68) without differentiation. Performed at: =G Performed By: #### [id number] #### [facility] [address] [place] [address] Dr. Todd Moreno Methodology: Comment Normal [facility] Comment on above: Result Comment: This liquid based ThinPrep(R) pap test was screened with the use of an image guided system. Performed at: WB Performed By: #### [id number] #### [facility] [address] [place] [address] Dr. Todd Moreno Note: Comment Normal [facility] Comment on above: Result Comment: The Pap smear is a screening test designed to aid in the detection of premalignant and malignant conditions of the uterine cervix. It is not a diagnostic procedure and should not be used as the sole means of detecting cervical cancer. Both false-positive and false-negative reports do occur. . Performed at: WB Performed By: #### [id number] #### [facility] [address] [address] [address] Todd Moreno Performed by: Comment Normal [facility] Comment on above: Result Comment: Magalie Lemus, Creative Intern (ASCP) Performed at: WB Performed By: #### [id number] #### [facility] [address] [place] [address] Dr. Todd Moreno Specimen adequacy: Comment Normal [facility] Comment on above: Result Comment: Sati sfactory for evaluation. Endocervical and/or squamous metaplastic cells (endocervical component) are present. Performed at: WB Performed By: #### [id number] #### [facility] [address] [address] [address] Todd Moreno COVID-19 Antigenon 2 COVID-19 [...] its performance Corinne Disclaimer characteristic determined by [employer] and Corinne Disclaimer validated at [facility]. This Corinne Disclaimer test has not been [...] is terminated or revoked sooner. PERFORMED BY: [place] [address] PATHOLOGIST DIRECT RESPONSE CONSULTANT JONATHAN SHEPARD M.D. [facility] Comment on above: Performed By: #### S OFIANEG, COVID-19 CORINNE #### [facility] [address] [place] [address] HCG,Urineon 03-30-2021 Beta HCG ( test) Ql (U) Negative [facility] Comment on above: Result Comment: PERF ORMED BY: [place] [address] PATHOLOGIST DIRECT RESPONSE CONSULTANT JONATHAN SHEPARD M.D. Performed By: #### U HCG #### [facility] [address] [place] [address] Corinne Ag Negativeon 03-30-19 22 Corinne Ag Negative Negative Normal Negative [facility] Comment on above: Result Comment: This is a duplicate Corinne SARS Antigen (KAEL) result to be used for statistical tracking purpose only. PERFORMED BY: [place] [address] PATHOLOGIST DIRECT RESPONSE CONSULTANT JONATHAN SHEPARD M.D. Performed By: #### S OFIANEG, COVID-19 CORINNE #### [facility] [address] [place] [address] COVID-19 FRon 03-28-2021 SARS-CoV-2 (COVID-19) RNA JESE+probe Ql (Unsp spec) Negative Normal Negative [facility] Comment on above: Order Comment: Healt hcare Worker?: N Result Comment: Testing for SARS-CoV-2 by RT-PCR This test was developed and its performance characteristics determined by [employer] and validated at the [facility]. This test has not been FDA cleared [...] is terminated or revoked sooner. PERFORMED BY: [place] [address] PATHOLOGIST DIRECT RESPONSE CONSULTANT JONATHAN SHEPARD M.D. Performed By: #### C OVID 19 [facility] #### [facility] [address] [place], [place] [id number] [facility] XR elbow LT 2Von 03-01-2021 XR elbow LT 2V [facility] Main [place] [place] [address] XRay Report Signed Patient: Danyell Almaguer MR#: [id number] : 1985 Acct:[id number] Age/Sex: 35 / F ADM Date: 03/01/21 Loc: [facility] Room: Type: [facility] Attending Dr: Leandro Robles MD Ordering [...] Valdez Mcwilliams M.D.03/01/2021 1:47 PM Dictation Location: [place] [address] Transcribed By: [facility] 03/01/21 1347 Dictated By: Valdez Mcwilliams DO 03/01/21 1344 Signed By: 03/01/21 1347 [facility] XR FOREARM LEFT 2 VIEWSon XR FOREARM [...] are recommended in 7 to 10 days. [facility]/[employer] Workstation ID: [id number] Dictated by: MAR DAWSON on SunSep 08, 2020 11:41:42 PM EDT Transcribed by: SHERRILL SMYTH on SunSep 09, 2020 12:10:05 AM EDT Finalized by: MAR DAWSON on SunSep 09, 2020 12:16:26 AM EDT [facility] Comment on above: Order Comment: Injur y/Trauma [...] on SunSep 08, 2020 11:42:00 PM EDT [facility] Comment on above: Order Comment: Injur y/Trauma or Illness?:Injury/Trauma How long have you had these symptoms (acute/chronic)?:Acute Reason for exam?:fall, pain to left shoulder radiating down arm History of cancer?:no Surgeries, chemotherapy, or radiation?:no Type of Exam?:Initial Mechanism of injury?:fall Vital Signs Date Time Vital Sign Value Performing Clinician Erik wilson 03-01-2021 11:00-0500 Body height 170.18 cm Leandro Robles Other [employer] Other 03-01-2021 11:00-0500 Body mass index (BMI) [Ratio] 30.07 kg/m2 Leandro Travis Other [employer] Other 03-01-2021 11:00-0500 Body weight 87.09 kg Leandro Travis Other [employer] Other Encounters Encounter Date Encounter Type Care Provider Facility Start: 05-21-2023 End: 05-21-2023 ambulatory SHARLA HOOD Not Available Start: 03-08-2023 End: 03-08-2023 ambulatory ROGERS HODGE Not Available Start: 02-12-2023 End: 02-12-2023 ambulatory SCOTT JOHNSON Not Available Start: 05-30-2022 End: 05-30-[address] ROGERS HODGE . Facility:[facility] Start: 03-20-2022 End: 03-21-[address] ROGERS HOGDE . Facility:[facility] Start: 02-24-2022 End: 02-25-[address] Facility:[facility] Start: 01-31-2022 End: 02-01-[address] ROB HINES Facility:[facility] Start: 10-15-2021 End: 10-16-[address] ROGERS HODGE . Facility:[facility] Start: 10-05-2021 End: 10-05-[address] ROGERS HODGE . Facility:[facility] Start: 03-01-2021 End: 03-01-2021 ambulatory Leandro Robles Other [employer] Other Start: 03-01-2021 Encounter for other preprocedural examination Leandro Robles [facility] Start: 03-01-2021 Office outpatient ne w 45 minutes Leandro Robles [facility] Start: 09-09-2020 End: 09-09-2020 [facility] P[facility] Date Payer Category Payer Private Health Insurance [id number] 2019 Unknown [id number] 1985 Unknown [id number] 2.16. [id number] 1985 Unknown [id number] 2.16.84 [id number] 1985 Unknown [id number] 2.16.84 [id number] 1985 Unknown [id number] 2.16.84 [id number] 1985 Unknown [id number] 2.16.84 [id number] 1986 Unknown [id number] 2.16.84 [id number] 1985 Unknown [id number] 2.16.84 [id number] 1985 Unknown [id number] 2.16.84 [id number] 1986 Unknown [id number] 2.16.840 .[id number] 1986 Unknown [id number] 2.16.840 .[id number] 1959 Self-pay 1959 Unknown [id number] 1959 Unknown [id number] 1959 Unknown [id number] Unknown [id number] 2.16.84 [id number] Social History Date Type Detail Facility Sex Assigned At [employer] Other Evaluation note 03-01-2021 Note Date & Type Note Facility 03-01-2021 Evaluation note Encounter Date Diagnosis Assessment Notes Feb, Closed fracture of capitellum of left humerus with routine healing (ICD-10 - S42.452D) MRI reviewed with patient as healing fractures within the elbow. 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 Instructed [...] M24.022) Feb, Pre-op exam (ICD-10 - Z01.818) [employer] Other History general Narrative - Reported Note Date & Type Note Facility History general Narrative - Reported Type Medical History ADHD [facility] [facility] Other Summary Purpose Family History No Family [...] DATE CREATED AUTHOR AUTHOR'S ORGANIZ ATION 10/06/2021 [facility] DATE CREATED AUTHOR AUTHOR'S ORGANIZ ATION 06/08/2022 [facility] DATE CREATED AUTHOR AUTHOR'S ORGANIZ ATION 05/21/2023 [facility] EPIC REASON FOR [...] BE BASED ON THE PRIMARY CLINICAL RECORDS. [employer] [facility]. provides no warranty or guarantee of the accuracy or completeness of information in this document.
[2023-05-24 13:46] LABS: HCG Quantitative 2417 mIU/mL
== END 2023-05-24 10:59 | disposition home or self-care (01) ==
LOC: LAB 10:59
PROVIDERS: Physician Assistant; Visit Provider Obstetrics & Gynecology
DX: O20.0 Threatened abortion (principal)
CPT/HCPCS: 84702

== ENCOUNTER 2023-05-25 10:15 | Outpatient (OUT) | payer OTHER, SELFPAY ==
--- NOTE | 2023-05-25 10:18 | US_ITS ---
[address] [address] Patient Name: DANYELL ROSENBERG MRN: [id number] date: 1985 Sex: F Assigned Patient Location: [facility] Current Patient Location: [facility] Accession/Order Number: [id number] Exam Date: 05/25/2023 10:17 Report Date: 05/25/2023 12:23 At the request of: ROGERS HODGE Procedure: US pelvis transvaginal EXAMINATION: US pelvis transvaginal HISTORY: VIABILITY COMPARISON: Ultrasound OB transvaginal 05/18/2023 FINDINGS: GESTATIONAL SAC: Absent YOLK SAC: Absent POLE: Absent CARDIAC: Absent UTERUS: Thickened, heterogeneous endometrium, 10 mm. OVARIES: Right: Normal. Left: Normal. CERVIX: 3.9 cm in length and closed. CUL-DE-SAC: Normal. OTHER: None. AGE BY LMP: 9 weeks 0 days MIL BY LMP: 12/22/2023 AGE BY US CRL: Not applicable MIL BY US CRL: US/US pelvis transvaginal IMPRESSION: 1. No intrauterine . Previously seen gestational sac is no longer present. Electronically authenticated by: HALEY RABAGO Date: 05/25/2023 12:23
--- OUTSIDE RECORDS SUMMARY | 2023-05-25 10:19 | XMS_ITS | CCD ---
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 Todd Moreno Neisseria gonorrhoeae, JESE Negative Normal Negative [facility] Comment on above: Performed By: #### P TT, PT #### [facility] [address] [place], [place] [address] Dr. Todd Moreno VAGINITIS/VAGINOSIS DNA PROB Shaheed 06-01-2022 Tatyana species Negative Normal Negative [facility] [place] [facility] Comment on above: Performed By: #### P TT, PT #### [facility] [address] [place] [address] Dr. Todd Moreno Gardnerella vaginalis Negative Normal Negative [facility] Comment on above: Performed By: #### P TT, PT #### [facility] [address] [address] [address] Todd Moreno Trichomonas vaginalis Negative Normal Negative [facility] Comment on above: Performed By: #### P TT, PT #### [facility] [address] [place] [address] Dr. Todd Moreno HEP B SURFACE ANTIGEN SCREEN on 03-22-2022 HBsAg Screen Negative Normal Negative [facility] Comment on above: Performed By: #### H BSANS #### [facility] [address] [place] [address] Dr. Todd Moreno HEPATITIS C VIRUS AB W/ REFL EX QUANTon 03-22-2022 HCV AB 0.1 s/co ratio Normal 0.0-0.9 [facility] Comment on above: Performed By: #### P TT, PT #### [facility] [address] [place] [address] Dr. Todd Moreno Interpretation: Comment Normal [facility] [place] [facility] Comment on above: Result Comment: Nega tive Not infected with HCV, unless recent infection is suspected or other evidence exists to indicate HCV infection. Performed By: #### P TT, PT #### [facility] [address] [place] [address] Dr. Todd Moreno HIV 1 AND 2 WITH REFLEXon HIV Screen 4th Generation wRfx Non-Reactive Normal Non Reactive [facility] Comment on above: Result Comment: HIV Negative HIV-1/HIV-2 antibodies and HIV-1 p24 antigen were NOT detected. There is no laboratory evidence of HIV infection. Performed By: #### H IV12 #### [facility] [address] [place] [address] Dr. Todd Moreno RPR QUANTon 03-22-2022 Rapid Plasma Reagin, Quant Non-Reactive Normal NonRea<1:1 [facility] Comment on above: Result Comment: Luis E dias Note: This test does not meet current guidelines for screening and diagnosis of syphilis. This test is intended for following treatment response in patients being treated for syphilis infection. To screen for syphilis infection, a reflex cascade that includes both RPR and a treponema-specific assay should be utilized, such as Treponema pallidum (Syphilis) Screening [place] (485904) or Rapid Plasma Reagin (RPR) Test With Reflex to Quantitative RPR and Confirmatory Treponema pallidum Antibodies (519815). Performed By: #### R PRQ #### [facility] [address] [place] [address] Dr. Todd Moreno RUBELLA AB IGGon 03-22-2022 Rubella Antibodies, IgG 5.11 index Normal Immune >0.99 [facility] Comment on above: Result Comment: Non- immune <0.90 Equivocal 0.90 - 0.99 Immune >0.99 Performed By: #### R PRQ #### [facility] [address] [place] [address] Dr. Todd Moreno CBC AUTO DIFFon 03-20-2022 BASO # 0.0 103/ul Normal 0.0-0.1 [facility] Comment on above: Performed By: #### P TT, PT #### [facility] [address] [place] [address] Dr. Todd Moreno Basophils/100 WBC (Bld) 0.3 % Normal 0.2-2.0 [facility] Comment on above: Performed By: #### P TT, PT #### [facility] [address] [place] [address] Dr. Todd Moreno EO # 0.1 103/ul Normal 0.0-0.7 [facility] Comment on above: Performed By: #### P TT, PT #### [facility] [address] [place] [address] Dr. Todd Moreno Eosinophils/100 WBC (Bld) 1.0 % Normal 0.9-7.0 [facility] Comment on above: Performed By: #### P TT, PT #### [facility] [address] [place] [address] Dr. Todd Moreno Erythrocyte distribution width (RBC) [Ratio] 14.4 % Normal 11.0-15.0 [facility] Comment on above: Performed By: #### P TT, PT #### [facility] [address] [place] [address] Dr. Todd Moreno Hematocrit (Bld) [Volume fraction] 38.2 % Normal 36.0-48.0 [facility] Comment on above: Performed By: #### P TT, PT #### [facility] [address] [place] [address] Dr. Todd Moreno Hemoglobin (Bld) [Mass/Vol] 12.2 g/dL Normal 12.0-16.0 [facility] Comment on above: Performed By: #### P TT, PT #### [facility] [address] [place] [address] Dr. Todd Moreno IG # 0.03 10e3/ul Normal 0.00-0.03 [facility] Comment on above: Performed By: #### P TT, PT #### [facility] [address] [place] [address] Dr. Todd Moreno IG % 0.3 % Normal 0.0-0.5 [facility] Comment on above: Performed By: #### P TT, PT #### [facility] [address] [place] [address] Dr. Todd Moreno LYMPH # 1.9 103/ul Normal 1.2-3.8 [facility] Comment on above: Performed By: #### P TT, PT #### [facility] [address] [place] [address] Dr. Todd Moreno Lymphocytes/100 WBC (Bld) 19.0 % Critically low 20.5-60.0 [facility] Comment on above: Performed By: #### P TT, PT #### [facility] [address] [place] [address] Dr. Todd Moreno MANUAL DIFF REQ NO Normal [facility] [place] [facility] Comment on above: Performed By: #### P TT, PT #### [facility] [address] [place] [address] Dr. Todd Moreno MCH (RBC) [Entitic mass] 26.1 pg Critically low 26.7-34.0 [facility] Comment on above: Performed By: #### P TT, PT #### [facility] [address] [place] [address] Dr. Todd Moreon MCHC (RBC) [Mass/Vol] 31.9 g/dL Normal 29.9-35.2 [facility] Comment on above: Performed By: #### P TT, PT #### [facility] [address] [place] [address] Dr. Todd Moreno MCV (RBC) [Entitic vol] 81.6 fL Normal 81.0-99.0 [facility] Comment on above: Performed By: #### P TT, PT #### [facility] [address] [place] [address] Dr. Todd Moreno MONO # 0.4 103/ul Normal 0.3-0.8 [facility] Comment on above: Performed By: #### P TT, PT #### [facility] [address] [place] [address] Dr. Todd Moreno Monocytes/100 WBC (Bld) 4.4 % Normal 1.7-12.0 [facility] Comment on above: Performed By: #### P TT, PT #### [facility] [address] [place] [address] Dr. Todd Moreno NEUT # 7.5 103/ul Critically high 1.4-6.5 [facility] [place] [facility] Comment on above: Performed By: #### P TT, PT #### [facility] [address] [place] [address] Dr. Todd Moreno Neutrophils/100 WBC (Bld) 75.0 % Normal 43.0-75.0 [facility] Comment on above: Performed By: #### P TT, PT #### [facility] [address] [place] [address] Dr. Todd Moreno Platelet mean volume (Bld) [Entitic vol] 10.4 fL Normal 9.5-13.5 [facility] Comment on above: Performed By: #### P TT, PT #### [facility] [address] [address] [address] oTdd Moreno PLT 302 103/ul Normal 150-450 [facility] Comment on above: Performed By: #### P TT, PT #### [facility] [address] [address] [address] Todd Moreno RBC 4.68 106/ul Normal 4.20-5.40 [facility] Comment on above: Performed By: #### P TT, PT #### [facility] [address] [address] [address] Todd Moreno WBC 10.1 103/ul Normal 4.0-11.0 [facility] Comment on above: Performed By: #### P TT, PT #### [facility] [address] [place] [address] Dr. Todd Moreno CULTURE URINEon 03-20-2022 CULTURE URINE Culture Observations : MODERATE GROWTH OF MIXED GENITAL LORA. NO POTENTIAL PATHOGENS SEEN. Normal [facility] Comment on above: Performed By: #### P TT, PT #### [facility] [address] [place] [address] Dr. Todd Moreno GLYCOHEMOGLOBIN A1Con 2022 ADA RECOMMENDATION SEE BELOW Normal [facility] Comment on above: Result Comment: ADA RECOMMENDED LIMIT 4.0 - 6.0 ADA THERAPEUTIC TARGET < 7.0 ACTION SUGGESTED > 7.0 Performed By: #### A 1C #### [facility] [address] [place] [address] Dr. Todd Moreno Glucose [Mass/Vol] 105 mg/dL Normal [facility] [place] [facility] Comment on above: Performed By: #### A 1C #### [facility] [address] [place] [address] Dr. Todd Moreno HbA1c (Bld) [Mass fraction] 5.3 % Normal 4.5-6.2 [facility] Comment on above: Performed By: #### A 1C #### [facility] [address] [place] [address] Dr. Todd Moreno BENJAMIN BOX TEST PT SEND OUTo n 03-20-2022 SENT TO REF LAB 03/20/2022 Normal [facility] Comment on above: Performed By: #### P TT, PT #### [facility] [address] [place] [address] [id number] [address] Todd Moreno TYPE AND SCREENon 03-20-2022 TYPE AND SCREEN Negative Normal [facility] Comment on above: Performed By: #### P TT, PT #### [facility] [address] [place] [address] Dr. Todd Moreno US PREG TVon 02-24-2022 [...] by: CARIDAD DOBSON Date: 2022-02-24 16:[address] [facility] CULTURE URINEon 02-03-2022 CULTURE URINE Isolate 1 [...] F Oxacillin 0.5 S F Normal [facility] Comment on above: Performed By: #### P TT, PT #### [facility] [address] [address] [address] Todd Moreno US PREG TVon 02-01-2022 [...] ETHAN MERCER Date: 2022-01-31 22:05 Normal [facility] CBC AUTO DIFFon 01-31-2022 BASO # 0.1 103/ul Normal 0.0-0.1 [facility] Comment on above: Performed By: #### P TT, PT #### [facility] [address] [address] [address] Todd Moreno Basophils/100 WBC (Bld) 0.8 % Normal 0.2-2.0 [facility] Comment on above: Performed By: #### P TT, PT #### [facility] [address] [address] [address] Todd Moreno EO # 0.5 103/ul Normal 0.0-0.7 [facility] Comment on above: Performed By: #### P TT, PT #### [facility] [address] [place] [address] Dr. Todd Moreno Eosinophils/100 WBC (Bld) 5.4 % Normal 0.9-7.0 [facility] Comment on above: Performed By: #### P TT, PT #### [facility] [address] [place] [address] Dr. Todd Moreno Erythrocyte distribution width (RBC) [Ratio] 15.0 % Normal 11.0-15.0 [facility] Comment on above: Performed By: #### P TT, PT #### [facility] [address] [place] [address] Dr. Todd Moreno Hematocrit (Bld) [Volume fraction] 34.3 % Critically low 36.0-48.0 [facility] Comment on above: Performed By: #### P TT, PT #### [facility] [address] [place] [address] Dr. Todd Moreno Hemoglobin (Bld) [Mass/Vol] 11.2 g/dL Critically low 12.0-16.0 [facility] Comment on above: Performed By: #### P TT, PT #### [facility] [address] [place] [address] Dr. Todd Moreno IG # 0.02 10e3/ul Normal 0.00-0.03 [facility] Comment on above: Performed By: #### P TT, PT #### [facility] [address] [place] [address] Dr. Todd Moreno IG % 0.2 % Normal 0.0-0.5 [facility] Comment on above: Performed By: #### P TT, PT #### [facility] [address] [place] [address] Dr. Todd Moreno LYMPH # 2.7 103/ul Normal 1.2-3.8 [facility] Comment on above: Performed By: #### P TT, PT #### [facility] [address] [place] [address] Dr. Todd Moreno Lymphocytes/100 WBC (Bld) 29.9 % Normal 20.5-60.0 [facility] Comment on above: Performed By: #### P TT, PT #### [facility] [address] [place] [address] Dr. Todd Moreno MANUAL DIFF REQ NO Normal [facility] Comment on above: Performed By: #### P TT, PT #### [facility] [address] [place] [address] Dr. Todd Moreno MCH (RBC) [Entitic mass] 26.7 pg Normal 26.7-34.0 [facility] Comment on above: Performed By: #### P TT, PT #### [facility] [address] [place] [address] Dr. Todd Moreno MCHC (RBC) [Mass/Vol] 32.7 g/dL Normal 29.9-35.2 [facility] Comment on above: Performed By: #### P TT, PT #### [facility] [address] [place] [address] Dr. Todd Moreno MCV (RBC) [Entitic vol] 81.7 fL Normal 81.0-99.0 [facility] Comment on above: Performed By: #### P TT, PT #### [facility] [address] [place] [address] Dr. Todd Moreno MONO # 0.5 103/ul Normal 0.3-0.8 [facility] Comment on above: Performed By: #### P TT, PT #### [facility] [address] [place] [address] Dr. Todd Moreno Monocytes/100 WBC (Bld) 5.7 % Normal 1.7-12.0 [facility] Comment on above: Performed By: #### P TT, PT #### [facility] [address] [place] [address] Dr. Todd Moreno NEUT # 5.2 103/ul Normal 1.4-6.5 [facility] Comment on above: Performed By: #### P TT, PT #### [facility] [address] [place] [address] Dr. Todd Moreno Neutrophils/100 WBC (Bld) 58.0 % Normal 43.0-75.0 [facility] Comment on above: Performed By: #### P TT, PT #### [facility] [address] [place] [address] Dr. Todd Moreno Platelet mean volume (Bld) [Entitic vol] 10.4 fL Normal 9.5-13.5 [facility] Comment on above: Performed By: #### P TT, PT #### [facility] [address] [place] [address] Dr. Todd Moreno PLT 270 103/ul Normal 150-450 [facility] Comment on above: Performed By: #### P TT, PT #### [facility] [address] [place] [address] Dr. Todd Moreno RBC 4.20 106/ul Normal 4.20-5.40 [facility] Comment on above: Performed By: #### P TT, PT #### [facility] [address] [place] [address] Dr. Todd Moreno WBC 9.1 103/ul Normal 4.0-11.0 [facility] Comment on above: Performed By: #### P TT, PT #### [facility] [address] [place] [address] Dr. Todd Moreno ER URINE PROFILEon 2 Bilirubin Ql (U) Negative Normal NEGATIVE [facility] Comment on above: Performed By: #### P TT, PT #### [facility] [address] [place] [address] Dr. Todd Moreno Clarity (U) CLEAR Normal CLEAR [facility] Comment on above: Performed By: #### P TT, PT #### [facility] [address] [place] [address] Dr. Todd Moreno Color (U) YELLOW Normal YELLOW [facility] Comment on above: Performed By: #### P TT, PT #### [facility] [address] [place] [address] Dr. Todd Moreno ERUAHD A micrscopic examination will be performed if indicated. Normal [facility] Comment on above: Performed By: #### P TT, PT #### [facility] [address] [address] [address] Todd Moreno Glucose Ql (U) Negative Normal NEGATIVE [facility] Comment on above: Performed By: #### P TT, PT #### [facility] [address] [place] [address] Dr. Todd Moreno Hemoglobin Ql (U) TRACE-INTACT Abnormal NEGATIVE [facility] Comment on above: Performed By: #### P TT, PT #### [facility] [address] [address] [address] Todd Moreno Ketones Ql (U) Negative Normal NEGATIVE [facility] Comment on above: Performed By: #### P TT, PT #### [facility] [address] [place] [address] Dr. Todd Moreno LEUKOCYTES SMALL Abnormal NEGATIVE [facility] Comment on above: Performed By: #### P TT, PT #### [facility] [address] [place] [address] Dr. Todd Moreno Nitrite Ql (U) Negative Normal NEGATIVE [facility] Comment on above: Performed By: #### P TT, PT #### [facility] [address] [place] [address] Dr. Todd Moreno pH (U) 6.5 [pH] Normal 5-9 [facility] Comment on above: Performed By: #### P TT, PT #### [facility] [address] [place] [address] Dr. Todd Moreno SPEC GRAVITY 1.015 Normal 1.005-<=1.025 [facility] Comment on above: Performed By: #### P TT, PT #### [facility] [address] [place] [address] Dr. Todd Moreno UA PROTEIN Negative Normal NEGATIVE/ TRACE [facility] Comment on above: Performed By: #### P TT, PT #### [facility] [address] [place] [address] Dr. Todd Moreno UR MICRO IND INDICATED Normal [facility] Comment on above: Performed By: #### P TT, PT #### [facility] [address] [place] [address] Dr. Todd Moreno Urobilinogen Qn (U) 0.2 {Tiffany'U}/dL Normal 0.2 - 1. 0 [facility] Comment on above: Performed By: #### P TT, PT #### [facility] [address] [place] [address] Dr. Todd Moreno LIPASEon 01-31-2022 Lipase [Catalytic activity/Vol] 123.0 U/L Normal 73.0-393.0 [facility] Comment on above: Performed By: #### C MP, LIPA #### [facility] [address] [place] [address] Dr. Todd Moreno PREG QUANT HCGon 01-31-2022 HCG QUANT 711 mIU/mL Normal [facility] Comment on above: Performed By: #### P TT, PT #### [facility] [address] [place] [address] Dr. Todd Moreno HCG RANGE SEE BELOW Normal [facility] Comment on above: Result Comment: 5-50 0.2-1 WEEK 50-500 1-2 WEEKS 100-5,000 2-3 WEEKS 500-10,000 3-4 WEEKS 1,000-50,000 4-5 WEEKS 10,000-100,000 5-6 WEEKS 15,000-200,000 6-8 WEEKS 10,000-100,000 2-3 MONTHS Performed By: #### P TT, PT #### [facility] [address] [place] [address] Dr. Todd Moreno PROF 14(COMP METB)on 022 Albumin [Mass/Vol] 3.7 g/dL Normal 3.4-5.0 [facility] Comment on above: Performed By: #### C MP, LIPA #### [facility] [address] [place] [address] Dr. Todd Moreno Albumin/Globulin [Mass ratio] 1.0 {ratio} Normal [facility] Comment on above: Performed By: #### C MP, LIPA #### [facility] [address] [address] [address] Todd Moreno ALP [Catalytic activity/Vol] 80 U/L Normal 46-116 [facility] Comment on above: Performed By: #### C MP, LIPA #### [facility] [address] [address] [address] Todd Moreno ALT [Catalytic activity/Vol] 23 U/L Normal 14-59 [facility] Comment on above: Performed By: #### C MP, LIPA #### [facility] [address] [address] [address] Todd Moreno Anion gap [Moles/Vol] 10.2 mmol/L Normal [facility] Comment on above: Performed By: #### C MP, LIPA #### [facility] [address] [place] [address] Dr. Todd Moreno AST [Catalytic activity/Vol] 14 U/L Critically low 15-37 [facility] Comment on above: Performed By: #### C MP, LIPA #### [facility] [address] [place] [address] Dr. Todd Moreno Bilirubin [Mass/Vol] 0.3 mg/dL Normal 0.2-1.0 [facility] Comment on above: Performed By: #### C MP, LIPA #### [facility] [address] [place] [address] Dr. Todd Moreno Calcium [Mass/Vol] 9.1 mg/dL Normal 8.5-10.1 [facility] Comment on above: Performed By: #### C MP, LIPA #### [facility] [address] [place] [address] Dr. Todd Moreno Chloride [Moles/Vol] 104 mmol/L Normal 98-107 [facility] Comment on above: Performed By: #### C MP, LIPA #### [facility] [address] [place] [address] Dr. Todd Moreno CO2 [Moles/Vol] 26.8 mmol/L Normal 21.0-32.0 [facility] Comment on above: Performed By: #### C MP, LIPA #### [facility] [address] [address] [address] Todd Moreno Creatinine [Mass/Vol] 0.87 mg/dL Normal 0.55-1.02 [facility] Comment on above: Performed By: #### C MP, LIPA #### [facility] [address] [address] [address] Todd Moreno EGFR-AF ARMENIAN >60 Normal >=60 [facility] Comment on above: Performed By: #### C MP, LIPA #### [facility] [address] [address] [address] Todd Moreno EGFR-NON AF ARMENIAN >60 Normal >=60 [facility] Comment on above: Performed By: #### C MP, LIPA #### [facility] [address] [address] [address] Todd Moreno Globulin (S) [Mass/Vol] 3.7 g/dL Normal [facility] Comment on above: Performed By: #### C MP, LIPA #### [facility] [address] [address] [address] Todd Moreno Glucose [Mass/Vol] 98 mg/dL Normal 74-106 [facility] Comment on above: Performed By: #### C MP, LIPA #### [facility] [address] [address] [address] Todd Moreno Potassium [Moles/Vol] 4.0 mmol/L Normal 3.5-5.1 [facility] Comment on above: Performed By: #### C MP, LIPA #### [facility] [address] [address] [address] Todd Moreno Protein [Mass/Vol] 7.4 g/dL Normal 6.4-8.2 [facility] Comment on above: Performed By: #### C MP, LIPA #### [facility] [address] [address] [address] Todd Moreno Sodium [Moles/Vol] 137 mmol/L Normal 136-145 [facility] Comment on above: Performed By: #### C MP, LIPA #### [facility] [address] [place] [address] Dr. Todd Moreno Urea nitrogen [Mass/Vol] 15.0 mg/dL Normal 7.0-18.0 [facility] Comment on above: Performed By: #### C MP, LIPA #### [facility] [address] [place] [address] Dr. Todd Moreno Urea nitrogen/Creatinine [Mass ratio] 17.2 mg/mg Normal [facility] Comment on above: Performed By: #### C MP, LIPA #### [facility] [address] [place] [address] Dr. Todd Moreno URINE MICROSCOPIC ONLYon BACTERIA SMALL Abnormal NONE SEEN [facility] Comment on above: Performed By: #### P TT, PT #### [facility] [address] [place] [address] Dr. Todd Moreno Bacteria identified Cx Nom (U) INDICATED Normal [facility] Comment on above: Performed By: #### P TT, PT #### [facility] [address] [place] [address] Dr. Todd Moreno CAST NONE SEEN Normal NONE SEEN [facility] Comment on above: Performed By: #### P TT, PT #### [facility] [address] [place] [address] Dr. Todd Moreno Crystals LM Nom (Urine sed) NONE SEEN Normal NONE SEEN [facility] Comment on above: Performed By: #### P TT, PT #### [facility] [address] [place] [address] Dr. Todd Moreno Epithelial cells LM Ql (Urine sed) FEW Abnormal NONE SEEN /RARE [facility] Comment on above: Performed By: #### P TT, PT #### [facility] [address] [place] [address] Dr. Todd Moreno MUCOUS NONE SEEN Normal NONE SEEN [facility] Comment on above: Performed By: #### P TT, PT #### [facility] [address] [place] [address] Dr. Todd Moreno RBC 0-2 Normal 0-2 [facility] Comment on above: Performed By: #### P TT, PT #### [facility] [address] [address] [address] Todd Moreno WBC 10-20 Abnormal NONE SEEN [facility] Comment on above: Performed By: #### P TT, PT #### [facility] [address] [place], [place] [address] Dr. Todd Moreno ESTROGENon 10-20-2021 Estrogens, Total 68 pg/mL Normal [facility] Comment on above: Result Comment: Prep ubertal < 40 Female Cycle: 1-10 Days 16 - 328 11-20 Days 34 - 501 21-30 Days 48 - 350 Post-Menopausal 40 - 244 Performed By: #### P TT, PT #### [facility] [address] [place] [address] Dr. Todd Moreno ESTRADIOLon 10-16-2021 Estradiol 62.1 pg/mL Normal [facility] Comment on above: Result Comment: Adul t Female: Follicular phase 12.5 - 166.0 Ovulation phase 85.8 - 498.0 Luteal phase 43.8 - 211.0 Postmenopausal <6.0 - 54.7 1st trimester 215.0 - >4300.0 Ramos ECLIA methodology Performed By: #### E STRADI #### [facility] [address] [place] [address] Dr. Todd Moreno FSHon 10-16-2021 FSH 5.6 mIU/mL Normal [facility] Comment on above: Result Comment: Adul t Female: Follicular phase 3.5 - 12.5 Ovulation phase 4.7 - 21.5 Luteal phase 1.7 - 7.7 Postmenopausal 25.8 - 134.8 Performed By: #### P TT, PT #### [facility] [address] [address] [address] Todd Moreno LUTEINIZING HORMONE (LH)on 0 10-16-2021 LH 12.1 mIU/mL Normal [facility] Comment on above: Result Comment: Adul t Female: Follicular phase 2.4 - 12.6 Ovulation phase 14.0 - 95.6 Luteal phase 1.0 - 11.4 Postmenopausal 7.7 - 58.5 Performed By: #### P TT, PT #### [facility] [address] [place] [address] Dr. Todd Moreno CBC AUTO DIFFon 10-15-2021 BASO # 0.0 103/ul Normal 0.0-0.1 [facility] Comment on above: Performed By: #### P TT, PT #### [facility] [address] [place] [address] Dr. Todd Moreno Basophils/100 WBC (Bld) 0.6 % Normal 0.2-2.0 [facility] Comment on above: Performed By: #### P TT, PT #### [facility] [address] [place] [address] Dr. Todd Moreno EO # 0.1 103/ul Normal 0.0-0.7 [facility] Comment on above: Performed By: #### P TT, PT #### [facility] [address] [place] [address] Dr. Todd Moreno Eosinophils/100 WBC (Bld) 2.1 % Normal 0.9-7.0 [facility] Comment on above: Performed By: #### P TT, PT #### [facility] [address] [place] [address] Dr. Todd Moreno Erythrocyte distribution width (RBC) [Ratio] 14.0 % Normal 11.0-15.0 [facility] Comment on above: Performed By: #### P TT, PT #### [facility] [address] [place] [address] Dr. Todd Moreno Hematocrit (Bld) [Volume fraction] 37.0 % Normal 36.0-48.0 [facility] Comment on above: Performed By: #### P TT, PT #### [facility] [address] [place] [address] Dr. Todd Moreno Hemoglobin (Bld) [Mass/Vol] 11.6 g/dL Critically low 12.0-16.0 [facility] Comment on above: Performed By: #### P TT, PT #### [facility] [address] [place] [address] Dr. Todd Moreno IG # 0.01 10e3/ul Normal 0.00-0.03 [facility] Comment on above: Performed By: #### P TT, PT #### [facility] [address] [address] [address] Todd Moreno IG % 0.2 % Normal 0.0-0.5 [facility] Comment on above: Performed By: #### P TT, PT #### [facility] [address] [address] [address] Todd Moreno LYMPH # 2.2 103/ul Normal 1.2-3.8 [facility] Comment on above: Performed By: #### P TT, PT #### [facility] [address] [address] [address] Todd Moreno Lymphocytes/100 WBC (Bld) 33.1 % Normal 20.5-60.0 [facility] Comment on above: Performed By: #### P TT, PT #### [facility] [address] [place] [address] Dr. Todd Moreno MANUAL DIFF REQ NO Normal [facility] Comment on above: Performed By: #### P TT, PT #### [facility] [address] [address] [address] Todd Moreno MCH (RBC) [Entitic mass] 26.3 pg Critically low 26.7-34.0 [facility] Comment on above: Performed By: #### P TT, PT #### [facility] [address] [address] [address] Todd Moreno MCHC (RBC) [Mass/Vol] 31.4 g/dL Normal 29.9-35.2 [facility] Comment on above: Performed By: #### P TT, PT #### [facility] [address] [address] [address] Todd Moreno MCV (RBC) [Entitic vol] 83.9 fL Normal 81.0-99.0 [facility] Comment on above: Performed By: #### P TT, PT #### [facility] [address] [address] [address] Todd Moreno MONO # 0.2 103/ul Critically low 0.3-0.8 [facility] Comment on above: Performed By: #### P TT, PT #### [facility] [address] [place] [address] Dr. Todd Moreno Monocytes/100 WBC (Bld) 3.5 % Normal 1.7-12.0 [facility] Comment on above: Performed By: #### P TT, PT #### [facility] [address] [place] [address] Dr. Todd Moreno NEUT # 4.0 103/ul Normal 1.4-6.5 [facility] Comment on above: Performed By: #### P TT, PT #### [facility] [address] [place] [address] Dr. Todd Moreno Neutrophils/100 WBC (Bld) 60.5 % Normal 43.0-75.0 [facility] Comment on above: Performed By: #### P TT, PT #### [facility] [address] [place] [address] Dr. Todd Moreno Platelet mean volume (Bld) [Entitic vol] 10.6 fL Normal 9.5-13.5 [facility] Comment on above: Performed By: #### P TT, PT #### [facility] [address] [place] [address] Dr. Todd Moreno PLT 263 103/ul Normal 150-450 [facility] Comment on above: Performed By: #### P TT, PT #### [facility] [address] [place] [address] Dr. Todd Moreno RBC 4.41 106/ul Normal 4.20-5.40 [facility] Comment on above: Performed By: #### P TT, PT #### [facility] [address] [place] [address] Dr. Todd Moreno WBC 6.6 103/ul Normal 4.0-11.0 [facility] Comment on above: Performed By: #### P TT, PT #### [facility] [address] [place] [address] Dr. Todd Moreno FREE T4on 10-15-2021 Free T4 [Mass/Vol] 1.05 ng/dL Normal 0.76-1.46 [facility] [place] [facility] Comment on above: Performed By: #### P TT, PT #### [facility] [address] [place] [address] Dr. Todd Moreno PROTIMEon 10-15-2021 INR Coag (PPP) [Relative time] 1.02 {INR} Normal [facility] Comment on above: Performed By: #### P TT, PT #### [facility] [address] [place] [address] Dr. Todd Moreno INR GUIDELINES SEE BELOW Normal [facility] Comment on above: Result Comment: RAMÓN RED INR: 2.0 - 3.0 CONDITIONS NOT LISTED BELOW 2.5 - 3.5 FOR PROSTHETIC HEART VALVE REPLACEMENT 2.5 - 3.5 RECURRENT THROMBOSIS Performed By: #### P TT, PT #### [facility] [address] [place] [address] Dr. Todd Moreno PT Coag (PPP) [Time] 11.0 s Normal 9.0-11.6 [facility] Comment on above: Performed By: #### P TT, PT #### [facility] [address] [place] [address] Dr. Todd Moreno PTTon 10-15-2021 aPTT Coag (Bld) [Time] 32.4 s Normal 22.3-36.2 [facility] Comment on above: Performed By: #### P TT, PT #### [facility] [address] [place] [address] Dr. Todd Moreno TSHon 10-15-2021 TSH 1.777 uIU/mL Normal 0.358-3.740 [facility] Comment on above: Performed By: #### P TT, PT #### [facility] [address] [place] [address] Dr. Todd Moreno PAP ACOG PANEL 2: 30 to 65on 10-10-2021 . . Normal [facility] Comment on above: Result Comment: Perf ormed at: WB Performed By: #### [id number] #### [facility] [address] [place] [address] Dr. Todd Moreno Age Gdln ACOG Testing 30-[address] [facility] Comment on above: Performed By: #### [id number] #### [facility] [address] [place] [address] Dr. Todd Moreno DIAGNOSIS: Comment Normal [facility] Comment on above: Result Comment: NEGA TIVE FOR INTRAEPITHELIAL LESION OR MALIGNANCY. Performed at: WB Performed By: #### [id number] #### [facility] [address] [address] [address] Todd Moreno HPV Aptima Negative Normal Negative [facility] Comment on above: Result Comment: This nucleic acid amplification test detects fourteen high-risk HPV types (16,18,31,33,35,39,45,51,52,56,58,59,66,68) without differentiation. Performed at: =G Performed By: #### [id number] #### [facility] [address] [place] [address] Dr. Todd Moreno Methodology: Comment Normal [facility] Comment on above: Result Comment: This liquid based ThinPrep(R) pap test was screened with the use of an image guided system. Performed at: WB Performed By: #### [id number] #### [facility] [address] [place] [address] Dr. Todd Moreno Note: Comment Normal [facility] Comment on above: Result Comment: The Pap smear is a screening test designed to aid in the detection of premalignant and malignant conditions of the uterine cervix. It is not a diagnostic procedure and should not be used as the sole means of detecting cervical cancer. Both false-positive and false-negative reports do occur. . Performed at: WB Performed By: #### [id number] #### [facility] [address] [address] [address] Todd Moreno Performed by: Comment Normal [facility] Comment on above: Result Comment: Magalie Lemus, Nipping Machine Operator (ASCP) Performed at: WB Performed By: #### [id number] #### [facility] [address] [place] [address] Dr. Todd Moreno Specimen adequacy: Comment Normal [facility] Comment on above: Result Comment: Sati sfactory for evaluation. Endocervical and/or squamous metaplastic cells (endocervical component) are present. Performed at: WB Performed By: #### [id number] #### [facility] [address] [address] [address] Todd Moreno COVID-19 Antigenon 2 COVID-19 [...] its performance Corinne Disclaimer characteristic determined by [employer] and Corinne Disclaimer validated at [facility]. This Corinne Disclaimer test has not been FDA cleared or approved. This Corinne Disclaimer test has been authorized by FDA under an Emergency Use Corinne Disclaimer Authorization (EUA). This test has been validated Corinne Disclaimer in accordance with the FDA's Guidance Document (Policy Corinne Disclaimer for Diagnostics Testing in Laboratories Certified to Coirnne Disclaimer Perform High Complexity Testing under CLIA prior to Corinne Disclaimer Emergency Use Authorization for Coronavirus Corinne Disclaimer iseas during the Public Health Emergency) Corinne Disclaimer issued on June 19, 2019. This test is only authorized Corinne Disclaimer for the duration of time the declaration that Croinne Disclaimer circumstances exist justifying the authorization of Corinne Disclaimer the emergency use of in vitro diagnostic tests for Corinne Disclaimer detection of SARS-CoV-2 virus and/or diagnosis of Corinne Disclaimer COVID-19 infection under section 564(b)(1) of the Corinne Disclaimer Act, 21 U.S.C. 360bbb-3(b)(1), unless the Corinne Disclaimer authorization is terminated or revoked sooner. PERFORMED BY: [place] [id number] PATHOLOGIST HYDRAULIC PRESS SERVICER JONATHAN SHEPARD M.D. [facility] Comment on above: Performed By: #### S OFIANEG, COVID-19 CORINNE #### [facility] [address] [place] [address] HCG,Urineon 03-30-2021 Beta HCG ( test) Ql (U) Negative [facility] Comment on above: Result Comment: PERF ORMED BY: [place] [address] PATHOLOGIST HYDRAULIC PRESS SERVICER JONATHAN SHEPARD M.D. Performed By: #### U HCG #### [facility] [address] [place] [address] Corinne Ag Negativeon 03-30-19 22 Corinne Ag Negative Negative Normal Negative [facility] Comment on above: Result Comment: This is a duplicate Corinne SARS Antigen (KAEL) result to be used for statistical tracking purpose only. PERFORMED BY: [place] [address] PATHOLOGIST HYDRAULIC PRESS SERVICER JONATHAN SHEPARD M.D. Performed By: #### S OFIANEG, COVID-19 CORINNE #### [facility] [address] [place] [address] COVID-19 FRon 03-28-2021 SARS-CoV-2 (COVID-19) RNA JESE+probe Ql (Unsp spec) Negative Normal Negative [facility] Comment on above: Order Comment: Healt hcare Worker?: N Result Comment: Testing for SARS-CoV-2 by RT-PCR This test was developed and its performance characteristics determined by [employer] and validated at the [facility]. This test has not been FDA [...] is terminated or revoked sooner. PERFORMED BY: [place] [address] PATHOLOGIST HYDRAULIC PRESS SERVICER JONATHAN SHEPARD M.D. Performed By: #### C OVID 19 [facility] #### [facility] [address] [place], [place] [id number] [facility] XR elbow LT 2Von 03-01-2021 XR elbow LT 2V [facility] [place] [address] [place] [address] XRay Report Signed Patient: Danyell Almaguer MR#: [id number] : 1985 Acct:[id number] Age/Sex: 35 / F ADM Date: 03/01/21 Loc: [facility] Room: Type: [facility] Attending Dr: Leandro Robles MD Ordering Provider: [...] Valdez Mcwilliams M.D.03/01/2021 1:47 PM Dictation Location: [place] [address] Transcribed By: [facility] 03/01/21 1347 Dictated By: Valdez Mcwilliams DO 03/01/21 1344 Signed By: 03/01/21 1347 [facility] XR FOREARM LEFT 2 VIEWSon XR FOREARM [...] are recommended in 7 to 10 days. [facility] [employer] Workstation ID: [id number] Dictated by: MAR DAWSON on SunSep 08, 2020 11:41:42 PM EDT Transcribed by: SHERRILL SMYTH on SunSep 09, 2020 12:10:05 AM EDT Finalized by: MAR DAWSON on SunSep 09, 2020 12:16:26 AM EDT [facility] Comment on above: Order Comment: Injur [...] on SunSep 08, 2020 11:42:00 PM EDT [facility] Comment on above: Order Comment: Injur y/Trauma or Illness?:Injury/Trauma How long have you had these symptoms (acute/chronic)?:Acute Reason for exam?:fall, pain to left shoulder radiating down arm History of cancer?:no Surgeries, chemotherapy, or radiation?:no Type of Exam?:Initial Mechanism of injury?:fall Vital Signs Date Time Vital Sign Value Performing Clinician Erik wilson 03-01-2021 11:00-0500 Body height 170.18 cm Leandro Robles Other [facility] Other 03-01-2021 11:00-0500 Body mass index (BMI) [Ratio] 30.07 kg/m2 Leandro Travis Other [facility] Other 03-01-2021 11:00-0500 Body weight 87.09 kg Leandro Travis Other [facility] Other Encounters Encounter Date Encounter Type Care [...] 03-01-2021 End: 03-01-2021 ambulatory Leandro Robles Other [facility] Other Start: 03-01-2021 Encounter for other preprocedural examination Leandro Robles [facility] Start: 03-01-2021 Office outpatient ne w 45 minutes Leandro Robles [facility] Start: 09-09-2020 End: 09-09-2020 [facility] P[facility] Date Payer Category Payer Private Health Insurance [id number] 2019 Unknown [id number] 1985 Unknown [id number] 2.16. [id number] 1985 Unknown [id number] 2.16.84 [id number] 1986 Unknown [id number] 2.16.84 [id number] 1986 Unknown [id number] 2.16.84 [id number] 1986 Unknown [id number] 2.16.84 [id number] 1986 Unknown [id number] 2.16.84 0.1.758644.3.579.2.593 1986 Unknown [id number] 2.16.84 0.1.845022.3.579.2.593 1986 Unknown [id number] 2.16.84 0.1.536670.3.579.2.1259 1986 Unknown [id number] 2.16.840 .1.923929.3.579.2.1259 1986 Unknown [id number] 2.16.840 .[id number] 1959 Self-pay 1959 Unknown [id number] 1959 Unknown [id number] 1959 Unknown [id number] Unknown [id number] 2.16.84 [id number] Social History Date Type Detail Facility Sex Assigned At [facility] Other Evaluation note 03-01-2021 Note Date & Type Note Facility 03-01-2021 Evaluation note Encounter Date Diagnosis Assessment Notes Feb, Closed fracture of capitellum of left humerus with routine healing (ICD-10 - S42.452D) MRI reviewed with patient as healing fractures within the elbow. Discussed that her lacking range of motion may be a long term care pharmacist condition, with or without surgical intervention. Instructed [...] M24.022) Feb, Pre-op exam (ICD-10 - Z01.818) [facility] Other History general Narrative - Reported Note Date & Type Note Facility History general Narrative - Reported Type Medical History ADHD [facility] Other Summary Purpose Family History No Family [...] DATE CREATED AUTHOR AUTHOR'S ORGANIZ ATION 10/06/2021 [facility] DATE CREATED AUTHOR AUTHOR'S ORGANIZ ATION 06/08/2022 [facility] DATE CREATED AUTHOR AUTHOR'S ORGANIZ ATION 05/21/2023 [facility] EPIC REASON FOR VISIT [...] BE BASED ON THE PRIMARY CLINICAL RECORDS. [employer] [facility]. provides no warranty or guarantee of the accuracy or completeness of information in this document.
== END 2023-05-25 10:16 | disposition home or self-care (01) ==
LOC: NOMS 10:15
PROVIDERS: Visit Provider Obstetrics & Gynecology
DX: O20.0 Threatened abortion (principal); Z3A.09 9 weeks gestation of pregnancy
CPT/HCPCS: 76830

== ENCOUNTER 2023-05-26 12:46 | Outpatient (OUT) | payer OTHER, SELFPAY ==
--- OUTSIDE RECORDS SUMMARY | 2023-05-26 12:49 | XMS_ITS | CCD ---
Author Name Unknown Address [address] [place] [address] Organization [facility] Care Team Providers Care Scalemaker Name Role Phone HUBER LUNDBERG VERONIQUE Attending Unavailable TANYA JOHNSON Primary Care Unavailable Leandro Rolbes Unavailable DONNY, DR ROB Feliciano Admitting Unavailable [...] Unavailable AYESHA ., DR MCCLOUD Admitting Unavailable [place], DR CARIDAD [employer] Unavailable AYESHA ., [...] Chlamydia trachomatis, JESE Negative Normal Negative [facility] Comment on above: Performed By: #### P TT, PT #### [facility] [address] [address] [address] Todd Moreno Neisseria gonorrhoeae, JESE Negative Normal Negative [facility] Comment on above: Performed By: #### P TT, PT #### [facility] [address], [place] [address] Dr. Todd Moreno VAGINITIS/VAGINOSIS DNA PROB Shaheed 06-01-2022 Tatyana species Negative Normal Negative [facility] Comment on above: Performed By: #### P TT, PT #### [facility] [address] [place] [address] Dr. Todd Moreno Gardnerella vaginalis Negative Normal Negative [facility] Comment on above: Performed By: #### P TT, PT #### [facility] [address] [address] [address] Todd Moreno Trichomonas vaginalis Negative Normal Negative [facility] Comment on above: Performed By: #### P TT, PT #### [facility] [address] [place] [address] Dr. Todd Moreno HEP B SURFACE ANTIGEN SCREEN on 03-22-2022 HBsAg Screen Negative Normal Negative [facility] Comment on above: Performed By: #### H BSANS #### [facility] [address] [place] [address] Dr. Todd Moreno HEPATITIS C VIRUS AB W/ REFL EX QUANTon 03-22-2022 HCV AB 0.1 s/co ratio Normal 0.0-0.9 [facility] Comment on above: Performed By: #### P TT, PT #### [facility] [address] [place] [address] Dr. Todd Moreno Interpretation: Comment Normal [facility] Comment on above: Result Comment: Nega tive Not infected with HCV, unless recent infection is suspected or other evidence exists to indicate HCV infection. Performed By: #### P TT, PT #### [facility] [address] [place] [address] Dr. Todd Moreno HIV 1 AND 2 WITH REFLEXon HIV Screen 4th Generation wRfx Non-Reactive Normal Non Reactive [facility] Comment on above: Result Comment: HIV Negative HIV-1/HIV-2 antibodies and HIV-1 p24 antigen were NOT detected. There is no laboratory evidence of HIV infection. Performed By: #### H IV12 #### [facility] [address] [place] [address] Dr. Todd Moreno RPR QUANTon 03-22-2022 Rapid Plasma Reagin, Quant Non-Reactive Normal NonRea<1:1 [facility] Comment on above: Result Comment: Luis E dias Note: This test does not meet current guidelines for screening and diagnosis of syphilis. This test is intended for following treatment response in patients being treated for syphilis infection. To screen for syphilis infection, a reflex cascade that includes both RPR and a treponema-specific assay should be utilized, such as Treponema pallidum (Syphilis) Screening [place] (585791) or Rapid Plasma Reagin (RPR) Test With Reflex to Quantitative RPR and Confirmatory Treponema pallidum Antibodies (722382). Performed By: #### R PRQ #### [facility] [address] [place] [address] Dr. Todd Moreno RUBELLA AB IGGon 03-22-2022 Rubella Antibodies, IgG 5.11 index Normal Immune >0.99 [facility] Comment on above: Result Comment: Non- immune <0.90 Equivocal 0.90 - 0.99 Immune >0.99 Performed By: #### R PRQ #### [facility] [address] [place] [address] Dr. Todd Moreno CBC AUTO DIFFon 03-20-2022 BASO # 0.0 103/ul Normal 0.0-0.1 [facility] Comment on above: Performed By: #### P TT, PT #### [facility] [address] [place] [address] Dr. Todd Moreno Basophils/100 WBC (Bld) 0.3 % Normal 0.2-2.0 [facility] Comment on above: Performed By: #### P TT, PT #### [facility] [address] [place] [address] Dr. Todd Moreno EO # 0.1 103/ul Normal 0.0-0.7 [facility] Comment on above: Performed By: #### P TT, PT #### [facility] [address] [place] [address] Dr. Todd Moreno Eosinophils/100 WBC (Bld) 1.0 % Normal 0.9-7.0 [facility] Comment on above: Performed By: #### P TT, PT #### [facility] [address] [place] [address] Dr. Todd Moreno Erythrocyte distribution width (RBC) [Ratio] 14.4 % Normal 11.0-15.0 [facility] Comment on above: Performed By: #### P TT, PT #### [facility] [address] [place] [address] Dr. Todd Moreno Hematocrit (Bld) [Volume fraction] 38.2 % Normal 36.0-48.0 [facility] Comment on above: Performed By: #### P TT, PT #### [facility] [address] [place] [address] Dr. Todd Moreno Hemoglobin (Bld) [Mass/Vol] 12.2 g/dL Normal 12.0-16.0 [facility] Comment on above: Performed By: #### P TT, PT #### [facility] [address] [place] [address] Dr. Todd Moreno IG # 0.03 10e3/ul Normal 0.00-0.03 [facility] Comment on above: Performed By: #### P TT, PT #### [facility] [address] [place] [address] Dr. Todd Moreno IG % 0.3 % Normal 0.0-0.5 [facility] Comment on above: Performed By: #### P TT, PT #### [facility] [address] [place] [address] Dr. Todd Moreno LYMPH # 1.9 103/ul Normal 1.2-3.8 [facility] Comment on above: Performed By: #### P TT, PT #### [facility] [address] [place] [address] Dr. Todd Moreno Lymphocytes/100 WBC (Bld) 19.0 % Critically low 20.5-60.0 [facility] Comment on above: Performed By: #### P TT, PT #### [facility] [address] [place] [address] Dr. Todd Moreno MANUAL DIFF REQ NO Normal [facility] Comment on above: Performed By: #### P TT, PT #### [facility] [address] [place] [address] Dr. Todd Moreno MCH (RBC) [Entitic mass] 26.1 pg Critically low 26.7-34.0 [facility] Comment on above: Performed By: #### P TT, PT #### [facility] [address] [place] [address] Dr. Todd Moreno MCHC (RBC) [Mass/Vol] 31.9 g/dL Normal 29.9-35.2 [facility] Comment on above: Performed By: #### P TT, PT #### [facility] [address] [place] [address] Dr. Todd Moreno MCV (RBC) [Entitic vol] 81.6 fL Normal 81.0-99.0 [facility] Comment on above: Performed By: #### P TT, PT #### [facility] [address] [place] [address] Dr. Todd Moreno MONO # 0.4 103/ul Normal 0.3-0.8 [facility] Comment on above: Performed By: #### P TT, PT #### [facility] [address] [place] [address] Dr. Todd Moreno Monocytes/100 WBC (Bld) 4.4 % Normal 1.7-12.0 [facility] Comment on above: Performed By: #### P TT, PT #### [facility] [address] [place] [address] Dr. Todd Moreno NEUT # 7.5 103/ul Critically high 1.4-6.5 [facility] Comment on above: Performed By: #### P TT, PT #### [facility] [address] [place] [address] Dr. Todd Moreno Neutrophils/100 WBC (Bld) 75.0 % Normal 43.0-75.0 [facility] Comment on above: Performed By: #### P TT, PT #### [facility] [address] [place] [address] Dr. Todd Moreno Platelet mean volume (Bld) [Entitic vol] 10.4 fL Normal 9.5-13.5 [facility] Comment on above: Performed By: #### P TT, PT #### [facility] [address] [address] [address] Todd Moreno PLT 302 103/ul Normal 150-450 [facility] Comment on above: Performed By: #### P TT, PT #### [facility] [address] [address] [address] Todd Moreno RBC 4.68 106/ul Normal 4.20-5.40 [facility] Comment on above: Performed By: #### P TT, PT #### [facility] [address] [address] [address] Todd Moreno WBC 10.1 103/ul Normal 4.0-11.0 [facility] Comment on above: Performed By: #### P TT, PT #### [facility] [address] [place] [address] Dr. Todd Moreno CULTURE URINEon 03-20-2022 CULTURE URINE Culture Observations : MODERATE GROWTH OF MIXED GENITAL LORA. NO POTENTIAL PATHOGENS SEEN. Normal [facility] Comment on above: Performed By: #### P TT, PT #### [facility] [address] [place] [address] Dr. Todd Moreno GLYCOHEMOGLOBIN A1Con 2022 ADA RECOMMENDATION SEE BELOW Normal [facility] Comment on above: Result Comment: ADA RECOMMENDED LIMIT 4.0 - 6.0 ADA THERAPEUTIC TARGET < 7.0 ACTION SUGGESTED > 7.0 Performed By: #### A 1C #### [facility] [address] [place] [address] Dr. Todd Moreno Glucose [Mass/Vol] 105 mg/dL Normal [facility] Comment on above: Performed By: #### A 1C #### [facility] [address] [place] [address] Dr. Todd Moreno HbA1c (Bld) [Mass fraction] 5.3 % Normal 4.5-6.2 [facility] Comment on above: Performed By: #### A 1C #### [facility] [address] [place] [address] Dr. Todd Moreno BENJAMIN BOX TEST PT SEND OUTo n 03-20-2022 SENT TO REF LAB 03/20/2022 Normal [facility] Comment on above: Performed By: #### P TT, PT #### [facility] [address] [place] [address] [address] [address] Todd Moreno TYPE AND SCREENon 03-20-2022 TYPE AND SCREEN Negative Normal [facility] Comment on above: Performed By: #### P TT, PT #### [facility] [address] [place] [address] Dr. Todd Moreno US PREG TVon 02-24-2022 [...] by: CARIDAD DOBSON Date: 2022-02-24 16:16 Normal [facility] CULTURE URINEon 02-03-2022 CULTURE URINE [...] F Oxacillin 0.5 S F Normal [facility] Comment on above: Performed By: #### P TT, PT #### [facility] [address] [address] [address] Todd Moreno US PREG TVon 02-01-2022 [...] ETHAN MERCER Date: 2022-01-31 22:05 Normal [facility] CBC AUTO DIFFon 01-31-2022 BASO # 0.1 103/ul Normal 0.0-0.1 [facility] Comment on above: Performed By: #### P TT, PT #### [facility] [address] [address] [address] Todd Moreno Basophils/100 WBC (Bld) 0.8 % Normal 0.2-2.0 [facility] Comment on above: Performed By: #### P TT, PT #### [facility] [address] [address] [address] Todd Moreno EO # 0.5 103/ul Normal 0.0-0.7 [facility] Comment on above: Performed By: #### P TT, PT #### [facility] [address] [place] [address] Dr. Todd Moreno Eosinophils/100 WBC (Bld) 5.4 % Normal 0.9-7.0 [facility] Comment on above: Performed By: #### P TT, PT #### [facility] [address] [place] [address] Dr. Todd Moreno Erythrocyte distribution width (RBC) [Ratio] 15.0 % Normal 11.0-15.0 [facility] Comment on above: Performed By: #### P TT, PT #### [facility] [address] [place] [address] Dr. Todd Moreno Hematocrit (Bld) [Volume fraction] 34.3 % Critically low 36.0-48.0 [facility] Comment on above: Performed By: #### P TT, PT #### [facility] [address] [place] [address] Dr. Todd Moreno Hemoglobin (Bld) [Mass/Vol] 11.2 g/dL Critically low 12.0-16.0 [facility] Comment on above: Performed By: #### P TT, PT #### [facility] [address] [place] [address] Dr. Todd Moreno IG # 0.02 10e3/ul Normal 0.00-0.03 [facility] Comment on above: Performed By: #### P TT, PT #### [facility] [address] [place] [address] Dr. Todd Moreno IG % 0.2 % Normal 0.0-0.5 [facility] Comment on above: Performed By: #### P TT, PT #### [facility] [address] [place] [address] Dr. Todd Moreno LYMPH # 2.7 103/ul Normal 1.2-3.8 [facility] Comment on above: Performed By: #### P TT, PT #### [facility] [address] [place] [address] Dr. Todd Moreno Lymphocytes/100 WBC (Bld) 29.9 % Normal 20.5-60.0 [facility] Comment on above: Performed By: #### P TT, PT #### [facility] [address] [place] [address] Dr. Todd Moreno MANUAL DIFF REQ NO Normal [facility] Comment on above: Performed By: #### P TT, PT #### [facility] [address] [place] [address] Dr. Todd Moreno MCH (RBC) [Entitic mass] 26.7 pg Normal 26.7-34.0 [facility] Comment on above: Performed By: #### P TT, PT #### [facility] [address] [place] [address] Dr. Todd Moreno MCHC (RBC) [Mass/Vol] 32.7 g/dL Normal 29.9-35.2 [facility] Comment on above: Performed By: #### P TT, PT #### [facility] [address] [place] [address] Dr. Todd Moreno MCV (RBC) [Entitic vol] 81.7 fL Normal 81.0-99.0 [facility] Comment on above: Performed By: #### P TT, PT #### [facility] [address] [place] [address] Dr. Todd Moreno MONO # 0.5 103/ul Normal 0.3-0.8 [facility] Comment on above: Performed By: #### P TT, PT #### [facility] [address] [place] [address] Dr. Todd Moreno Monocytes/100 WBC (Bld) 5.7 % Normal 1.7-12.0 [facility] Comment on above: Performed By: #### P TT, PT #### [facility] [address] [place] [address] Dr. Todd Moreno NEUT # 5.2 103/ul Normal 1.4-6.5 [facility] Comment on above: Performed By: #### P TT, PT #### [facility] [address] [place] [address] Dr. Todd Moreno Neutrophils/100 WBC (Bld) 58.0 % Normal 43.0-75.0 [facility] Comment on above: Performed By: #### P TT, PT #### [facility] [address] [place] [address] Dr. Todd Moreno Platelet mean volume (Bld) [Entitic vol] 10.4 fL Normal 9.5-13.5 [facility] Comment on above: Performed By: #### P TT, PT #### [facility] [address] [place] [address] Dr. Todd Moreno PLT 270 103/ul Normal 150-450 [facility] Comment on above: Performed By: #### P TT, PT #### [facility] [address] [place] [address] Dr. Todd Moreno RBC 4.20 106/ul Normal 4.20-5.40 [facility] Comment on above: Performed By: #### P TT, PT #### [facility] [address] [place] [address] Dr. Todd Moreno WBC 9.1 103/ul Normal 4.0-11.0 [facility] Comment on above: Performed By: #### P TT, PT #### [facility] [address] [place] [address] Dr. Todd Moreno ER URINE PROFILEon 2 Bilirubin Ql (U) Negative Normal NEGATIVE [facility] Comment on above: Performed By: #### P TT, PT #### [facility] [address] [place] [address] Dr. Todd Moreno Clarity (U) CLEAR Normal CLEAR [facility] Comment on above: Performed By: #### P TT, PT #### [facility] [address] [place] [address] Dr. Todd Moreno Color (U) YELLOW Normal YELLOW [facility] Comment on above: Performed By: #### P TT, PT #### [facility] [address] [place] [address] Dr. Todd Moreno ERUAHD A micrscopic examination will be performed if indicated. Normal [facility] Comment on above: Performed By: #### P TT, PT #### [facility] [address] [address] [address] Todd Moreno Glucose Ql (U) Negative Normal NEGATIVE [facility] Comment on above: Performed By: #### P TT, PT #### [facility] [address] [place] [address] Dr. Todd Moreno Hemoglobin Ql (U) TRACE-INTACT Abnormal NEGATIVE [facility] Comment on above: Performed By: #### P TT, PT #### [facility] [address] [address] [address] Todd Moreno Ketones Ql (U) Negative Normal NEGATIVE [facility] Comment on above: Performed By: #### P TT, PT #### [facility] [address] [place] [address] Dr. Todd Moreno LEUKOCYTES SMALL Abnormal NEGATIVE [facility] Comment on above: Performed By: #### P TT, PT #### [facility] [address] [place] [address] Dr. Todd Moreno Nitrite Ql (U) Negative Normal NEGATIVE [facility] Comment on above: Performed By: #### P TT, PT #### [facility] [address] [place] [address] Dr. Todd Moreno pH (U) 6.5 [pH] Normal 5-9 [facility] Comment on above: Performed By: #### P TT, PT #### [facility] [address] [place] [address] Dr. Todd Moreno SPEC GRAVITY 1.015 Normal 1.005-<=1.025 [facility] Comment on above: Performed By: #### P TT, PT #### [facility] [address] [place] [address] Dr. Todd Moreno UA PROTEIN Negative Normal NEGATIVE/ TRACE [facility] Comment on above: Performed By: #### P TT, PT #### [facility] [address] [place] [address] Dr. Todd Moreno UR MICRO IND INDICATED Normal [facility] Comment on above: Performed By: #### P TT, PT #### [facility] [address] [place] [address] Dr. Todd Moreno Urobilinogen Qn (U) 0.2 {Tiffany'U}/dL Normal 0.2 - 1. 0 [facility] Comment on above: Performed By: #### P TT, PT #### [facility] [address] [place] [address] Dr. Todd Moreno LIPASEon 01-31-2022 Lipase [Catalytic activity/Vol] 123.0 U/L Normal 73.0-393.0 [facility] Comment on above: Performed By: #### C MP, LIPA #### [facility] [address] [place] [address] Dr. Todd Moreno PREG QUANT HCGon 01-31-2022 HCG QUANT 711 mIU/mL Normal [facility] Comment on above: Performed By: #### P TT, PT #### [facility] [address] [place] [address] Dr. Todd Moreno HCG RANGE SEE BELOW Normal [facility] Comment on above: Result Comment: 5-50 0.2-1 WEEK 50-500 1-2 WEEKS 100-5,000 2-3 WEEKS 500-10,000 3-4 WEEKS 1,000-50,000 4-5 WEEKS 10,000-100,000 5-6 WEEKS 15,000-200,000 6-8 WEEKS 10,000-100,000 2-3 MONTHS Performed By: #### P TT, PT #### [facility] [address] [place] [address] Dr. Todd Moreno PROF 14(COMP METB)on 022 Albumin [Mass/Vol] 3.7 g/dL Normal 3.4-5.0 [facility] Comment on above: Performed By: #### C MP, LIPA #### [facility] [address] [place] [address] Dr. Todd Moreno Albumin/Globulin [Mass ratio] 1.0 {ratio} Normal [facility] Comment on above: Performed By: #### C MP, LIPA #### [facility] [address] [address] [address] Todd Moreno ALP [Catalytic activity/Vol] 80 U/L Normal 46-116 [facility] Comment on above: Performed By: #### C MP, LIPA #### [facility] [address] [address] [address] Todd Moreno ALT [Catalytic activity/Vol] 23 U/L Normal 14-59 [facility] Comment on above: Performed By: #### C MP, LIPA #### [facility] [address] [address] [address] Todd Moreno Anion gap [Moles/Vol] 10.2 mmol/L Normal [facility] Comment on above: Performed By: #### C MP, LIPA #### [facility] [address] [place] [address] Dr. Todd Moreno AST [Catalytic activity/Vol] 14 U/L Critically low 15-37 [facility] Comment on above: Performed By: #### C MP, LIPA #### [facility] [address] [place] [address] Dr. Todd Moreno Bilirubin [Mass/Vol] 0.3 mg/dL Normal 0.2-1.0 [facility] Comment on above: Performed By: #### C MP, LIPA #### [facility] [address] [place] [address] Dr. Todd Moreno Calcium [Mass/Vol] 9.1 mg/dL Normal 8.5-10.1 [facility] Comment on above: Performed By: #### C MP, LIPA #### [facility] [address] [place] [address] Dr. Tdod Moreno Chloride [Moles/Vol] 104 mmol/L Normal 98-107 [facility] Comment on above: Performed By: #### C MP, LIPA #### [facility] [address] [place] [address] Dr. Todd Moreno CO2 [Moles/Vol] 26.8 mmol/L Normal 21.0-32.0 [facility] Comment on above: Performed By: #### C MP, LIPA #### [facility] [address] [address] [address] Todd Moreno Creatinine [Mass/Vol] 0.87 mg/dL Normal 0.55-1.02 [facility] Comment on above: Performed By: #### C MP, LIPA #### [facility] [address] [address] [address] Todd Moreno EGFR-AF [place]ER >60 Normal >=60 [facility] Comment on above: Performed By: #### C MP, LIPA #### [facility] [address] [address] [address] Todd Moreno EGFR-NON AF [place] >60 Normal >=60 [facility] Comment on above: Performed By: #### C MP, LIPA #### [facility] [address] [address] [address] Todd Moreno Globulin (S) [Mass/Vol] 3.7 g/dL Normal [facility] Comment on above: Performed By: #### C MP, LIPA #### [facility] [address] [address] [address] Todd Moreno Glucose [Mass/Vol] 98 mg/dL Normal 74-106 [facility] Comment on above: Performed By: #### C MP, LIPA #### [facility] [address] [address] [address] Todd Moreno Potassium [Moles/Vol] 4.0 mmol/L Normal 3.5-5.1 [facility] Comment on above: Performed By: #### C MP, LIPA #### [facility] [address] [address] [address] Todd Moreno Protein [Mass/Vol] 7.4 g/dL Normal 6.4-8.2 [facility] Comment on above: Performed By: #### C MP, LIPA #### [facility] [address] [address] [address] Todd Moreno Sodium [Moles/Vol] 137 mmol/L Normal 136-145 [facility] Comment on above: Performed By: #### C MP, LIPA #### [facility] [address] [place] [address] Dr. Todd Moreno Urea nitrogen [Mass/Vol] 15.0 mg/dL Normal 7.0-18.0 [facility] Comment on above: Performed By: #### C MP, LIPA #### [facility] [address] [place] [address] Dr. Todd Moreno Urea nitrogen/Creatinine [Mass ratio] 17.2 mg/mg Normal [facility] Comment on above: Performed By: #### C MP, LIPA #### [facility] [address] [place] [address] Dr. Todd Moreno URINE MICROSCOPIC ONLYon BACTERIA SMALL Abnormal NONE SEEN [facility] Comment on above: Performed By: #### P TT, PT #### [facility] [address] [place] [address] Dr. Todd Moreno Bacteria identified Cx Nom (U) INDICATED Normal [facility] Comment on above: Performed By: #### P TT, PT #### [facility] [address] [place] [address] Dr. Todd Moreno CAST NONE SEEN Normal NONE SEEN [facility] Comment on above: Performed By: #### P TT, PT #### [facility] [address] [place] [address] Dr. Todd Moreno Crystals LM Nom (Urine sed) NONE SEEN Normal NONE SEEN [facility] Comment on above: Performed By: #### P TT, PT #### [facility] [address] [place] [address] Dr. Todd Moreno Epithelial cells LM Ql (Urine sed) FEW Abnormal NONE SEEN /RARE [facility] Comment on above: Performed By: #### P TT, PT #### [facility] [facility] [address] [place] [address] Dr. Todd Moreno MUCOUS NONE SEEN Normal NONE SEEN [facility] Comment on above: Performed By: #### P TT, PT #### [facility] [address] [place] [address] Dr. Todd Moreno RBC 0-2 Normal 0-2 [facility] Comment on above: Performed By: #### P TT, PT #### [facility] [address] [address] [address] Todd Moreno WBC 10-20 Abnormal NONE SEEN [facility] Comment on above: Performed By: #### P TT, PT #### [facility] [address], [place] [address] Dr. Todd Moreno ESTROGENon 10-20-2021 Estrogens, Total 68 pg/mL Normal [facility] Comment on above: Result Comment: Prep ubertal < 40 Female Cycle: 1-10 Days 16 - 328 11-20 Days 34 - 501 21-30 Days 48 - 350 Post-Menopausal 40 - 244 Performed By: #### P TT, PT #### [facility] [address] [place] [address] Dr. Todd Moreno ESTRADIOLon 10-16-2021 Estradiol 62.1 pg/mL Normal [facility] Comment on above: Result Comment: Adul t Female: Follicular phase 12.5 - 166.0 Ovulation phase 85.8 - 498.0 Luteal phase 43.8 - 211.0 Postmenopausal <6.0 - 54.7 1st trimester 215.0 - >4300.0 Ramos ECLIA methodology Performed By: #### E STRADI #### [facility] [address] [place] [address] Dr. Todd Moreno FSHon 10-16-2021 FSH 5.6 mIU/mL Normal [facility] Comment on above: Result Comment: Adul t Female: Follicular phase 3.5 - 12.5 Ovulation phase 4.7 - 21.5 Luteal phase 1.7 - 7.7 Postmenopausal 25.8 - 134.8 Performed By: #### P TT, PT #### [facility] [address] [address] [address] Todd Moreno LUTEINIZING HORMONE (LH)on 0 10-16-2021 LH 12.1 mIU/mL Normal [facility] Comment on above: Result Comment: Adul t Female: Follicular phase 2.4 - 12.6 Ovulation phase 14.0 - 95.6 Luteal phase 1.0 - 11.4 Postmenopausal 7.7 - 58.5 Performed By: #### P TT, PT #### [facility] [address] [place] [address] Dr. Todd Moreno CBC AUTO DIFFon 10-15-2021 BASO # 0.0 103/ul Normal 0.0-0.1 [facility] Comment on above: Performed By: #### P TT, PT #### [facility] [address] [place] [address] Dr. Todd Moreno Basophils/100 WBC (Bld) 0.6 % Normal 0.2-2.0 [facility] Comment on above: Performed By: #### P TT, PT #### [facility] [address] [place] [address] Dr. Todd Moreno EO # 0.1 103/ul Normal 0.0-0.7 [facility] Comment on above: Performed By: #### P TT, PT #### [facility] [address] [place] [address] Dr. Todd Moreno Eosinophils/100 WBC (Bld) 2.1 % Normal 0.9-7.0 [facility] Comment on above: Performed By: #### P TT, PT #### [facility] [address] [place] [address] Dr. Todd Moreno Erythrocyte distribution width (RBC) [Ratio] 14.0 % Normal 11.0-15.0 [facility] Comment on above: Performed By: #### P TT, PT #### [facility] [address] [place] [address] Dr. Todd Moreno Hematocrit (Bld) [Volume fraction] 37.0 % Normal 36.0-48.0 [facility] Comment on above: Performed By: #### P TT, PT #### [facility] [address] [place] [address] Dr. Todd Moreno Hemoglobin (Bld) [Mass/Vol] 11.6 g/dL Critically low 12.0-16.0 [facility] Comment on above: Performed By: #### P TT, PT #### [facility] [address] [place] [address] Dr. Todd Moreno IG # 0.01 10e3/ul Normal 0.00-0.03 [facility] Comment on above: Performed By: #### P TT, PT #### [facility] [address] [address] [address] Todd Moreno IG % 0.2 % Normal 0.0-0.5 [facility] Comment on above: Performed By: #### P TT, PT #### [facility] [address] [address] [address] Todd Moreno LYMPH # 2.2 103/ul Normal 1.2-3.8 [facility] Comment on above: Performed By: #### P TT, PT #### [facility] [address] [address] [address] Todd Moreno Lymphocytes/100 WBC (Bld) 33.1 % Normal 20.5-60.0 [facility] Comment on above: Performed By: #### P TT, PT #### [facility] [address] [place] [address] Dr. Todd Moreno MANUAL DIFF REQ NO Normal [facility] Comment on above: Performed By: #### P TT, PT #### [facility] [address] [address] [address] Todd Moreno MCH (RBC) [Entitic mass] 26.3 pg Critically low 26.7-34.0 [facility] Comment on above: Performed By: #### P TT, PT #### [facility] [address] [address] [address] Todd Moreno MCHC (RBC) [Mass/Vol] 31.4 g/dL Normal 29.9-35.2 [facility] Comment on above: Performed By: #### P TT, PT #### [facility] [address] [address] [address] Todd Moreno MCV (RBC) [Entitic vol] 83.9 fL Normal 81.0-99.0 [facility] Comment on above: Performed By: #### P TT, PT #### [facility] [address] [address] [address] Todd Moreno MONO # 0.2 103/ul Critically low 0.3-0.8 [facility] Comment on above: Performed By: #### P TT, PT #### [facility] [address] [place] [address] Dr. Todd Moreno Monocytes/100 WBC (Bld) 3.5 % Normal 1.7-12.0 [facility] Comment on above: Performed By: #### P TT, PT #### [facility] [address] [place] [address] Dr. Todd Moreno NEUT # 4.0 103/ul Normal 1.4-6.5 [facility] Comment on above: Performed By: #### P TT, PT #### [facility] [address] [place] [address] Dr. Todd Moreno Neutrophils/100 WBC (Bld) 60.5 % Normal 43.0-75.0 [facility] Comment on above: Performed By: #### P TT, PT #### [facility] [address] [place] [address] Dr. Todd Moreno Platelet mean volume (Bld) [Entitic vol] 10.6 fL Normal 9.5-13.5 [facility] Comment on above: Performed By: #### P TT, PT #### [facility] [address] [place] [address] Dr. Todd Moreno PLT 263 103/ul Normal 150-450 [facility] Comment on above: Performed By: #### P TT, PT #### [facility] [address] [place] [address] Dr. Todd Moreno RBC 4.41 106/ul Normal 4.20-5.40 [facility] Comment on above: Performed By: #### P TT, PT #### [facility] [address] [place] [address] Dr. Todd Moreno WBC 6.6 103/ul Normal 4.0-11.0 [facility] Comment on above: Performed By: #### P TT, PT #### [facility] [address] [place] [address] Dr. Todd Moreno FREE T4on 10-15-2021 Free T4 [Mass/Vol] 1.05 ng/dL Normal 0.76-1.46 [facility] Comment on above: Performed By: #### P TT, PT #### [facility] [address] [place] [address] Dr. Todd Moreno PROTIMEon 10-15-2021 INR Coag (PPP) [Relative time] 1.02 {INR} Normal [facility] Comment on above: Performed By: #### P TT, PT #### [facility] [address] [place] [address] Dr. Todd Moreno INR GUIDELINES SEE BELOW Normal [facility] Comment on above: Result Comment: RAMÓN RED INR: 2.0 - 3.0 CONDITIONS NOT LISTED BELOW 2.5 - 3.5 FOR PROSTHETIC HEART VALVE REPLACEMENT 2.5 - 3.5 RECURRENT THROMBOSIS Performed By: #### P TT, PT #### [facility] [address] [place] [address] Dr. Todd Moreno PT Coag (PPP) [Time] 11.0 s Normal 9.0-11.6 [facility] Comment on above: Performed By: #### P TT, PT #### [facility] [address] [place] [address] Dr. Todd Moreno PTTon 10-15-2021 aPTT Coag (Bld) [Time] 32.4 s Normal 22.3-36.2 [facility] Comment on above: Performed By: #### P TT, PT #### [facility] [address] [place] [address] Dr. Todd Moreno TSHon 10-15-2021 TSH 1.777 uIU/mL Normal 0.358-3.740 [facility] Comment on above: Performed By: #### P TT, PT #### [facility] [address] [place] [address] Dr. Todd Moreno PAP ACOG PANEL 2: 30 to 65on 10-10-2021 . . Normal [facility] Comment on above: Result Comment: Perf ormed at: WB Performed By: #### [id number] #### [facility] [address] [place] [address] Dr. Todd Moreno Age Gdln ACOG Testing 30-65 Normal [facility] Comment on above: Performed By: #### [id number] #### [facility] [address] [place] [address] Dr. Todd Moreno DIAGNOSIS: Comment Normal [facility] Comment on above: Result Comment: NEGA TIVE FOR INTRAEPITHELIAL LESION OR MALIGNANCY. Performed at: WB Performed By: #### [id number] #### [facility] [address] [address] [address] Todd Moreno HPV Aptima Negative Normal Negative [facility] Comment on above: Result Comment: This nucleic acid amplification test detects fourteen high-risk HPV types (16,18,31,33,35,39,45,51,52,56,58,59,66,68) without differentiation. Performed at: =G Performed By: #### [id number] #### [facility] [address] [place] [address] Dr. Todd Moreno Methodology: Comment Normal [facility] Comment on above: Result Comment: This liquid based ThinPrep(R) pap test was screened with the use of an image guided system. Performed at: WB Performed By: #### [id number] #### [facility] [address] [place] [address] Dr. Todd Moreno Note: Comment Normal [facility] Comment on above: Result Comment: The Pap smear is a screening test designed to aid in the detection of premalignant and malignant conditions of the uterine cervix. It is not a diagnostic procedure and should not be used as the sole means of detecting cervical cancer. Both false-positive and false-negative reports do occur. . Performed at: WB Performed By: #### [id number] #### [facility] [address] [address] [address] Todd Moreno Performed by: Comment Normal [facility] Comment on above: Result Comment: Magalie Lemus, Airplane Cover Maker (ASCP) Performed at: WB Performed By: #### [id number] #### [facility] [address] [place] [address] Dr. Todd Moreno Specimen adequacy: Comment Normal [facility] Comment on above: Result Comment: Sati sfactory for evaluation. Endocervical and/or squamous metaplastic cells (endocervical component) are present. Performed at: WB Performed By: #### [id number] #### [facility] [address] [address] [address] Todd Moreno COVID-19 Antigenon 2 COVID-19 [...] its performance Corinne Disclaimer characteristic determined by [employer] and Corinne Disclaimer validated at [facility]. This Corinne Disclaimer test has not been [...] is terminated or revoked sooner. PERFORMED BY: [place] [address] PATHOLOGIST MARKETING RESEARCHER JONATHAN SHEPARD M.D. [facility] Comment on above: Performed By: #### S OFIANEG, COVID-19 CORINNE #### [facility] [address] [place] [address] HCG,Urineon 03-30-2021 Beta HCG ( test) Ql (U) Negative [facility] Comment on above: Result Comment: PERF ORMED BY: [place] [address] PATHOLOGIST MARKETING RESEARCHER JONATHAN SHEPARD M.D. Performed By: #### U HCG #### [facility] [address] [place] [address] Corinne Ag Negativeon 03-30-19 22 Corinne Ag Negative Negative Normal Negative [facility] Comment on above: Result Comment: This is a duplicate Corinne SARS Antigen (KAEL) result to be used for statistical tracking purpose only. PERFORMED BY: [place] [address] PATHOLOGIST MARKETING RESEARCHER JONATHAN SHEPARD M.D. Performed By: #### S OFIANEG, COVID-19 CORINNE #### [facility] [address] [place] [address] COVID-19 FRon 03-28-2021 SARS-CoV-2 (COVID-19) RNA JESE+probe Ql (Unsp spec) Negative Normal Negative [facility] Comment on above: Order Comment: Healt hcare Worker?: N Result Comment: Testing for SARS-CoV-2 by RT-PCR This test was developed and its performance characteristics determined by [employer] and validated at the [facility]. This test has not been FDA cleared [...] is terminated or revoked sooner. PERFORMED BY: [place] [address] PATHOLOGIST MARKETING RESEARCHER JONATHAN SHEPARD M.D. Performed By: #### C OVID 19 [facility] #### [facility] [address] [place], [place] [id number] [facility] XR elbow LT 2Von 03-01-2021 XR elbow LT 2V [facility] [place] [address] [place] [address] XRay Report Signed Patient: Danyell Almaguer MR#: [id number] : 1985 Acct:[id number] Age/Sex: 35 / F ADM Date: 03/01/21 Loc: [facility] Room: Type: [facility] Attending Dr: Leandro Robles MD Ordering Provider: [...] Valdez Mcwilliams M.D.03/01/2021 1:47 PM Dictation Location: [place] [address] Transcribed By: [facility] 03/01/21 1347 Dictated By: Valdez Mcwilliams DO 03/01/21 1344 Signed By: 03/01/21 1347 [facility] XR FOREARM LEFT 2 VIEWSon XR [...] recommended in 7 to 10 days. [facility]/Medical Referral Source Workstation ID: [id number] Dictated by: MAR DAWSON on SunSep 08, 2020 11:41:42 PM EDT Transcribed by: SHERRILL SMYTH on SunSep 09, 2020 12:10:05 AM EDT Finalized by: MAR DAWSON on SunSep 09, 2020 12:16:26 AM EDT [facility] Comment on above: Order Comment: Injur y/Trauma [...] on SunSep 08, 2020 11:42:00 PM EDT [facility] Comment on above: Order Comment: Injur y/Trauma or Illness?:Injury/Trauma How long have you had these symptoms (acute/chronic)?:Acute Reason for exam?:fall, pain to left shoulder radiating down arm History of cancer?:no Surgeries, chemotherapy, or radiation?:no Type of Exam?:Initial Mechanism of injury?:fall Vital Signs Date Time Vital Sign Value Performing Clinician Erik wilson 03-01-2021 11:00-0500 Body height 170.18 cm Leandro Robles Other [facility] 03-01-2021 11:00-0500 Body mass index (BMI) [Ratio] 30.07 kg/m2 Leandro Travis Other [facility] Other 03-01-2021 11:00-0500 Body weight 87.09 kg Leandro Travis Other [facility] Other Encounters Encounter Date Encounter Type Care [...] 03-01-2021 End: 03-01-2021 ambulatory Leandro Robles Other [facility] Other Start: 03-01-2021 Encounter for other preprocedural examination Leandro Robles [facility] Start: 03-01-2021 Office outpatient ne w 45 minutes Leadnro Robles [facility] Start: 09-09-2020 End: 09-09-2020 [facility] Date Payer Category Payer Private Health Insurance [id number] 2019 Unknown [id number] 1985 Unknown [id number] 2.16. [id number] 1985 Unknown [id number] 2.16.84 [id number] 1985 Unknown [id number] 2.16.84 0.1.887118.3.579.2.593 1986 Unknown [id number] 2.16.84 0.1.062279.3.579.2.593 1985 Unknown [id number] 2.16.84 0.1.408773.3.579.2.593 1986 Unknown [id number] 2.16.84 0.1.872726.3.579.2.593 1986 Unknown [id number] 2.16.84 0.1.580157.3.579.2.593 1986 Unknown [id number] 2.16.84 0.1.881579.3.579.2.1259 1986 Unknown [id number] 2.16.840 .1.437686.3.579.2.1259 1986 Unknown [id number] 2.16.840 .1.068231.3.579.2.1259 1959 Self-pay 1959 Unknown [id number] 1959 Unknown [id number] 1959 Unknown [id number] Unknown [id number] 2.16.84 0.1.944626.3.579.2.593 Social History Date Type Detail Facility Sex Assigned At [facility] Other Evaluation note 03-01-2021 Note Date & Type Note Facility 03-01-2021 Evaluation note Encounter Date Diagnosis Assessment Notes Feb, Closed fracture of capitellum of left humerus with routine healing (ICD-10 - S42.452D) MRI reviewed with patient as healing fractures within the elbow. 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 Instructed [...] M24.022) Feb, Pre-op exam (ICD-10 - Z01.818) [facility] Other History general Narrative - Reported Note Date & Type Note Facility History general Narrative - Reported Type Medical History ADHD [facility] Other Summary Purpose Family History No Family [...] DATE CREATED AUTHOR AUTHOR'S ORGANIZ ATION 10/06/2021 [facility] DATE CREATED AUTHOR AUTHOR'S ORGANIZ ATION 06/08/2022 [facility] DATE CREATED AUTHOR AUTHOR'S ORGANIZ ATION 05/21/2023 [facility] EPIC REASON FOR VISIT [...] BE BASED ON THE PRIMARY CLINICAL RECORDS. [employer] [facility]. provides no warranty or guarantee of the accuracy or completeness of information in this document.
[2023-05-26 13:29] LABS: HCG Quantitative 950 mIU/mL
== END 2023-05-26 12:47 | disposition home or self-care (01) ==
LOC: LAB 12:47
PROVIDERS: Visit Provider Obstetrics & Gynecology
DX: O20.0 Threatened abortion (principal)
CPT/HCPCS: 36415; 84702

== ENCOUNTER 2023-06-22 16:35 | Outpatient (OUT) | payer OTHER, SELFPAY ==
[2023-06-22 17:19] LABS: HCG Quantitative 31 mIU/mL
== END 2023-06-22 16:36 | disposition home or self-care (01) ==
LOC: LAB 16:36
PROVIDERS: Visit Provider Obstetrics & Gynecology
DX: Z32.01 Encounter for pregnancy test, result positive (principal); Z87.59 Personal history of other complications of pregnancy, childbirth and the puerperium
CPT/HCPCS: 36415; 84702

== ENCOUNTER 2023-06-25 10:06 | Outpatient (OUT) | payer OTHER, SELFPAY ==
--- OUTSIDE RECORDS SUMMARY | 2023-06-25 10:28 | XMS_ITS | CCD ---
Author Organization [facility] Care Team Providers Care Tile Inspector Name Role Phone HUBER LUNDBERGDIJA Attending Unavailable [...] Unavailable AYESHA ., DR MCCLOUD Admitting Unavailable TACOMA, DR CARIDAD [employer] Unavailable AYESHA ., [...] Chlamydia trachomatis, JESE Negative Normal Negative [facility] Comment on above: Performed By: #### P TT, PT #### [facility] [address] [address] [address] Todd Moreno Neisseria gonorrhoeae, JESE Negative Normal Negative [facility] Comment on above: Performed By: #### P TT, PT #### [facility] [address] [address] [address] Todd Moreno VAGINITIS/VAGINOSIS DNA PROB Shaheed 06-01-2022 Tatyana species Negative Normal Negative [facility] Comment on above: Performed By: #### P TT, PT #### [facility] [address] [address] [address] Todd Moreno Gardnerella vaginalis Negative Normal Negative [facility] Comment on above: Performed By: #### P TT, PT #### [facility] [address] [address] [address] Todd Moreno Trichomonas vaginalis Negative Normal Negative [facility] Comment on above: Performed By: #### P TT, PT #### [facility] [address] [address] [address] Todd Moreno HEP B SURFACE ANTIGEN SCREEN on 03-22-2022 HBsAg Screen Negative Normal Negative [facility] Comment on above: Performed By: #### H BSANS #### [facility] [address] [place] [address] Dr. Todd Moreno HEPATITIS C VIRUS AB W/ REFL EX QUANTon 03-22-2022 HCV AB 0.1 s/co ratio Normal 0.0-0.9 [facility] Comment on above: Performed By: #### P TT, PT #### [facility] [address] [address] [address] Todd Moreno Interpretation: Comment Normal [facility] Comment on above: Result Comment: Nega tive Not infected with HCV, unless recent infection is suspected or other evidence exists to indicate HCV infection. Performed By: #### P TT, PT #### [facility] [address] [place] [address] Dr. Todd Moreno HIV 1 AND 2 WITH REFLEXon HIV Screen 4th Generation wRfx Non-Reactive Normal Non Reactive [facility] Comment on above: Result Comment: HIV Negative HIV-1/HIV-2 antibodies and HIV-1 p24 antigen were NOT detected. There is no laboratory evidence of HIV infection. Performed By: #### H IV12 #### [facility] [address] [place] [address] Dr. Todd Moreno RPR QUANTon 03-22-2022 Rapid Plasma Reagin, Quant Non-Reactive Normal NonRea<1:1 [facility] Comment on above: Result Comment: Plea se Note: This test does not meet current guidelines for screening and diagnosis of syphilis. This test is intended for following treatment response in patients being treated for syphilis infection. To screen for syphilis infection, a reflex cascade that includes both RPR and a treponema-specific assay should be utilized, such as Treponema pallidum (Syphilis) Screening Table [place] (599339) or Rapid Plasma Reagin (RPR) Test With Reflex to Quantitative RPR and Confirmatory Treponema pallidum Antibodies (623899). Performed By: #### R PRQ #### [facility] [address] [place] [address] Dr. Todd Moreno RUBELLA AB IGGon 03-22-2022 Rubella Antibodies, IgG 5.11 index Normal Immune >0.99 [facility] Comment on above: Result Comment: Non- immune <0.90 Equivocal 0.90 - 0.99 Immune >0.99 Performed By: #### R PRQ #### [facility] [address] [place] [address] Dr. Todd Moreno CBC AUTO DIFFon 03-20-2022 BASO # 0.0 103/ul Normal 0.0-0.1 [facility] Comment on above: Performed By: #### P TT, PT #### [facility] [address] [place] [address] Dr. Todd Moreno Basophils/100 WBC (Bld) 0.3 % Normal 0.2-2.0 [facility] Comment on above: Performed By: #### P TT, PT #### [facility] [address] [place] [address] Dr. Todd Moreno EO # 0.1 103/ul Normal 0.0-0.7 [facility] Comment on above: Performed By: #### P TT, PT #### [facility] [address] [place] [address] Dr. Todd Moreno Eosinophils/100 WBC (Bld) 1.0 % Normal 0.9-7.0 [facility] Comment on above: Performed By: #### P TT, PT #### [facility] [address] [place] [address] Dr. Todd Moreno Erythrocyte distribution width (RBC) [Ratio] 14.4 % Normal 11.0-15.0 [facility] Comment on above: Performed By: #### P TT, PT #### [facility] [address] [place] [address] Dr. Todd Moreno Hematocrit (Bld) [Volume fraction] 38.2 % Normal 36.0-48.0 [facility] Comment on above: Performed By: #### P TT, PT #### [facility] [address] [place] [address] Dr. Todd Moreno Hemoglobin (Bld) [Mass/Vol] 12.2 g/dL Normal 12.0-16.0 [facility] Comment on above: Performed By: #### P TT, PT #### [facility] [address] [place] [address] Dr. Todd Moreno IG # 0.03 10e3/ul Normal 0.00-0.03 [facility] Comment on above: Performed By: #### P TT, PT #### [facility] [address] [place] [address] Dr. Todd Moreno IG % 0.3 % Normal 0.0-0.5 [facility] Comment on above: Performed By: #### P TT, PT #### [facility] [address] [place] [address] Dr. Todd Moreno LYMPH # 1.9 103/ul Normal 1.2-3.8 [facility] Comment on above: Performed By: #### P TT, PT #### [facility] [address] [place] [address] Dr. Todd Moreno Lymphocytes/100 WBC (Bld) 19.0 % Critically low 20.5-60.0 [facility] Comment on above: Performed By: #### P TT, PT #### [facility] [address] [place] [address] Dr. Todd Moreno MANUAL DIFF REQ NO Normal [facility] Comment on above: Performed By: #### P TT, PT #### [facility] [address] [place] [address] Dr. Todd Moreno MCH (RBC) [Entitic mass] 26.1 pg Critically low 26.7-34.0 [facility] Comment on above: Performed By: #### P TT, PT #### [facility] [address] [place] [address] Dr. Todd Moreno MCHC (RBC) [Mass/Vol] 31.9 g/dL Normal 29.9-35.2 [facility] Comment on above: Performed By: #### P TT, PT #### [facility] [address] [place] [address] Dr. Todd Moreno MCV (RBC) [Entitic vol] 81.6 fL Normal 81.0-99.0 [facility] Comment on above: Performed By: #### P TT, PT #### [facility] [address] [place] [address] Dr. Todd Moreno MONO # 0.4 103/ul Normal 0.3-0.8 [facility] Comment on above: Performed By: #### P TT, PT #### [facility] [address] [place] [address] Dr. Todd Moreno Monocytes/100 WBC (Bld) 4.4 % Normal 1.7-12.0 [facility] Comment on above: Performed By: #### P TT, PT #### [facility] [address] [place] [address] Dr. Todd Moreno NEUT # 7.5 103/ul Critically high 1.4-6.5 [facility] Comment on above: Performed By: #### P TT, PT #### [facility] [address] [place] [address] Dr. Todd Moreno Neutrophils/100 WBC (Bld) 75.0 % Normal 43.0-75.0 [facility] Comment on above: Performed By: #### P TT, PT #### [facility] [address] [place] [address] Dr. Todd Moreno Platelet mean volume (Bld) [Entitic vol] 10.4 fL Normal 9.5-13.5 [facility] Comment on above: Performed By: #### P TT, PT #### [facility] [address] [place] [address] Dr. Todd Moreno PLT 302 103/ul Normal 150-450 [facility] Comment on above: Performed By: #### P TT, PT #### [facility] [address] [place] [address] Dr. Todd Moreno RBC 4.68 106/ul Normal 4.20-5.40 [facility] Comment on above: Performed By: #### P TT, PT #### [facility] [address] [place] [address] Dr. Todd Moreno WBC 10.1 103/ul Normal 4.0-11.0 [facility] Comment on above: Performed By: #### P TT, PT #### [facility] [address] [place] [address] Dr. Todd Moreno CULTURE URINEon 03-20-2022 CULTURE URINE Culture Observations : MODERATE GROWTH OF MIXED GENITAL LORA. NO POTENTIAL PATHOGENS SEEN. Normal [facility] Comment on above: Performed By: #### P TT, PT #### [facility] [address] [place] [address] Dr. Todd Moreno GLYCOHEMOGLOBIN A1Con 2022 ADA RECOMMENDATION SEE BELOW Normal [facility] Comment on above: Result Comment: ADA RECOMMENDED LIMIT 4.0 - 6.0 ADA THERAPEUTIC TARGET < 7.0 ACTION SUGGESTED > 7.0 Performed By: #### A 1C #### [facility] [address] [place] [address] Dr. Todd Moreno Glucose [Mass/Vol] 105 mg/dL Normal [facility] Comment on above: Performed By: #### A 1C #### [facility] [address] [place] [address] Dr. Todd Moreno HbA1c (Bld) [Mass fraction] 5.3 % Normal 4.5-6.2 [facility] Comment on above: Performed By: #### A 1C #### [facility] [address] [place] [address] Dr. Todd Moreno BENJAMIN BOX TEST PT SEND OUTo n 03-20-2022 SENT TO REF LAB 03/20/2022 Normal [facility] Comment on above: Performed By: #### P TT, PT #### [facility] [address] [address] [address] Todd Moreno TYPE AND SCREENon 03-20-2022 TYPE AND SCREEN Negative Normal [facility] Comment on above: Performed By: #### P TT, PT #### [facility] [address] [address] [address] Todd Moreno US PREG TVon 02-24-2022 [...] DOBSON Date: 2022-02-24 16:16 Normal [facility] CULTURE URINEon 02-03-2022 CULTURE URINE [...] F Oxacillin 0.5 S F Normal [facility] Comment on above: Performed By: #### P TT, PT #### [facility] [address] [address] [address] Todd Moreno US PREG TVon 02-01-2022 [...] ETHAN MERCER Date: 2022-01-31 22:05 Normal [facility] CBC AUTO DIFFon 01-31-2022 BASO # 0.1 103/ul Normal 0.0-0.1 [facility] Comment on above: Performed By: #### P TT, PT #### [facility] [address] [address] [address] Todd Moreno Basophils/100 WBC (Bld) 0.8 % Normal 0.2-2.0 [facility] Comment on above: Performed By: #### P TT, PT #### [facility] [address] [address] [address] Todd Moreno EO # 0.5 103/ul Normal 0.0-0.7 [facility] Comment on above: Performed By: #### P TT, PT #### [facility] [address] [place] [address] Dr. Todd Moreno Eosinophils/100 WBC (Bld) 5.4 % Normal 0.9-7.0 [facility] Comment on above: Performed By: #### P TT, PT #### [facility] [address] [place] [address] Dr. Todd Moreno Erythrocyte distribution width (RBC) [Ratio] 15.0 % Normal 11.0-15.0 [facility] Comment on above: Performed By: #### P TT, PT #### [facility] [address] [place] [address] Dr. Todd Moreno Hematocrit (Bld) [Volume fraction] 34.3 % Critically low 36.0-48.0 [facility] Comment on above: Performed By: #### P TT, PT #### [facility] [address] [place] [address] Dr. Todd Moreno Hemoglobin (Bld) [Mass/Vol] 11.2 g/dL Critically low 12.0-16.0 [facility] Comment on above: Performed By: #### P TT, PT #### [facility] [address] [place] [address] Dr. Todd Moreno IG # 0.02 10e3/ul Normal 0.00-0.03 [facility] Comment on above: Performed By: #### P TT, PT #### [facility] [address] [place] [address] Dr. Todd Moreno IG % 0.2 % Normal 0.0-0.5 [facility] Comment on above: Performed By: #### P TT, PT #### [facility] [address] [place] [address] Dr. Todd Moreno LYMPH # 2.7 103/ul Normal 1.2-3.8 [facility] Comment on above: Performed By: #### P TT, PT #### [facility] [address] [place] [address] Dr. Todd Moreno Lymphocytes/100 WBC (Bld) 29.9 % Normal 20.5-60.0 [facility] Comment on above: Performed By: #### P TT, PT #### [facility] [address] [place] [address] Dr. Todd Moreno MANUAL DIFF REQ NO Normal [facility] Comment on above: Performed By: #### P TT, PT #### [facility] [address] [place] [address] Dr. Todd Moreno MCH (RBC) [Entitic mass] 26.7 pg Normal 26.7-34.0 [facility] Comment on above: Performed By: #### P TT, PT #### [facility] [address] [place] [address] Dr. Todd Moreno MCHC (RBC) [Mass/Vol] 32.7 g/dL Normal 29.9-35.2 [facility] Comment on above: Performed By: #### P TT, PT #### [facility] [address] [place] [address] Dr. Todd Moreno MCV (RBC) [Entitic vol] 81.7 fL Normal 81.0-99.0 [facility] Comment on above: Performed By: #### P TT, PT #### [facility] [address] [place] [address] Dr. Todd Moreno MONO # 0.5 103/ul Normal 0.3-0.8 [facility] Comment on above: Performed By: #### P TT, PT #### [facility] [address] [place] [address] Dr. Todd Moreno Monocytes/100 WBC (Bld) 5.7 % Normal 1.7-12.0 [facility] Comment on above: Performed By: #### P TT, PT #### [facility] [address] [place] [address] Dr. Todd Moreno NEUT # 5.2 103/ul Normal 1.4-6.5 [facility] Comment on above: Performed By: #### P TT, PT #### [facility] [address] [place] [address] Dr. Todd Moreno Neutrophils/100 WBC (Bld) 58.0 % Normal 43.0-75.0 [facility] Comment on above: Performed By: #### P TT, PT #### [facility] [address] [place] [address] Dr. Todd Moreno Platelet mean volume (Bld) [Entitic vol] 10.4 fL Normal 9.5-13.5 [facility] Comment on above: Performed By: #### P TT, PT #### [facility] [address] [place] [address] Dr. Todd Moreno PLT 270 103/ul Normal 150-450 [facility] Comment on above: Performed By: #### P TT, PT #### [facility] [address] [place] [address] Dr. Todd Moreno RBC 4.20 106/ul Normal 4.20-5.40 [facility] Comment on above: Performed By: #### P TT, PT #### [facility] [address] [place] [address] Dr. Todd Moreno WBC 9.1 103/ul Normal 4.0-11.0 [facility] Comment on above: Performed By: #### P TT, PT #### [facility] [address] [place] [address] Dr. Todd Moreno ER URINE PROFILEon 2 Bilirubin Ql (U) Negative Normal NEGATIVE [facility] Comment on above: Performed By: #### P TT, PT #### [facility] [address] [place] [address] Dr. Todd Moreno Clarity (U) CLEAR Normal CLEAR [facility] Comment on above: Performed By: #### P TT, PT #### [facility] [address] [place] [address] Dr. Todd Moreno Color (U) YELLOW Normal YELLOW [facility] Comment on above: Performed By: #### P TT, PT #### [facility] [address] [place] [address] Dr. Todd SALINAS A micrscopic examination will be performed if indicated. Normal [facility] Comment on above: Performed By: #### P TT, PT #### [facility] [address] [address] [address] Todd Moreno Glucose Ql (U) Negative Normal NEGATIVE [facility] Comment on above: Performed By: #### P TT, PT #### [facility] [address] [address] [address] Todd Moreno Hemoglobin Ql (U) TRACE-INTACT Abnormal NEGATIVE [facility] Comment on above: Performed By: #### P TT, PT #### [facility] [address] [address] [address] Todd Moreno Ketones Ql (U) Negative Normal NEGATIVE [facility] Comment on above: Performed By: #### P TT, PT #### [facility] [address] [place] [address] Dr. Todd Moreno LEUKOCYTES SMALL Abnormal NEGATIVE [facility] Comment on above: Performed By: #### P TT, PT #### [facility] [address] [place] [address] Dr. Todd Moreno Nitrite Ql (U) Negative Normal NEGATIVE [facility] Comment on above: Performed By: #### P TT, PT #### [facility] [address] [place] [address] Dr. Todd Moreno pH (U) 6.5 [pH] Normal 5-9 [facility] Comment on above: Performed By: #### P TT, PT #### [facility] [address] [place] [address] Dr. Todd Moreno SPEC GRAVITY 1.015 Normal 1.005-<=1.025 [facility] Comment on above: Performed By: #### P TT, PT #### [facility] [address] [place] [address] Dr. Todd Moreno UA PROTEIN Negative Normal NEGATIVE/ TRACE [facility] Comment on above: Performed By: #### P TT, PT #### [facility] [address] [place] [address] Dr. Todd Moreno UR MICRO IND INDICATED Normal [facility] Comment on above: Performed By: #### P TT, PT #### [facility] [address] [place] [address] Dr. Todd Moreno Urobilinogen Qn (U) 0.2 {Tiffany'U}/dL Normal 0.2 - 1. 0 [facility] Comment on above: Performed By: #### P TT, PT #### [facility] [address] [place] [address] Dr. Todd Moreno LIPASEon 01-31-2022 Lipase [Catalytic activity/Vol] 123.0 U/L Normal 73.0-393.0 [facility] Comment on above: Performed By: #### C MP, LIPA #### [facility] [address] [place] [address] Dr. Todd Moreno PREG QUANT HCGon 01-31-2022 HCG QUANT 711 mIU/mL Normal [facility] Comment on above: Performed By: #### P TT, PT #### [facility] [address] [place] [address] Dr. Todd Moreno HCG RANGE SEE BELOW Normal [facility] Comment on above: Result Comment: 5-50 0.2-1 WEEK 50-500 1-2 WEEKS 100-5,000 2-3 WEEKS 500-10,000 3-4 WEEKS 1,000-50,000 4-5 WEEKS 10,000-100,000 5-6 WEEKS 15,000-200,000 6-8 WEEKS 10,000-100,000 2-3 MONTHS Performed By: #### P TT, PT #### [facility] [address] [place] [address] Dr. Todd Moreno PROF 14(COMP METB)on 022 Albumin [Mass/Vol] 3.7 g/dL Normal 3.4-5.0 [facility] Comment on above: Performed By: #### C MP, LIPA #### [facility] [address] [place] [address] Dr. Todd Moreno Albumin/Globulin [Mass ratio] 1.0 {ratio} Normal [facility] Comment on above: Performed By: #### C MP, LIPA #### [facility] [address] [place] [address] Dr. Todd Moreno ALP [Catalytic activity/Vol] 80 U/L Normal 46-116 [facility] Comment on above: Performed By: #### C MP, LIPA #### [facility] [address] [place] [address] Dr. Todd Moreno ALT [Catalytic activity/Vol] 23 U/L Normal 14-59 [facility] Comment on above: Performed By: #### C MP, LIPA #### [facility] [address] [place] [address] Dr. Todd Moreno Anion gap [Moles/Vol] 10.2 mmol/L Normal [facility] Comment on above: Performed By: #### C MP, LIPA #### [facility] [address] [place] [address] Dr. Todd Moreno AST [Catalytic activity/Vol] 14 U/L Critically low 15-37 [facility] Comment on above: Performed By: #### C MP, LIPA #### [facility] [address] [place] [address] Dr. Todd Moreno Bilirubin [Mass/Vol] 0.3 mg/dL Normal 0.2-1.0 [facility] Comment on above: Performed By: #### C MP, LIPA #### [facility] [address] [place] [address] Dr. Todd Moreno Calcium [Mass/Vol] 9.1 mg/dL Normal 8.5-10.1 [facility] Comment on above: Performed By: #### C MP, LIPA #### [facility] [address] [place] [address] Dr. Todd Moreno Chloride [Moles/Vol] 104 mmol/L Normal 98-107 [facility] Comment on above: Performed By: #### C MP, LIPA #### [facility] [address] [place] [address] Dr. Todd Moreno CO2 [Moles/Vol] 26.8 mmol/L Normal 21.0-32.0 [facility] Comment on above: Performed By: #### C MP, LIPA #### [facility] [address] [place] [address] Dr. Todd Moreno Creatinine [Mass/Vol] 0.87 mg/dL Normal 0.55-1.02 [facility] Comment on above: Performed By: #### C MP, LIPA #### [facility] [address] [place] [address] Dr. Todd Moreno EGFR-AF MALAGASY >60 Normal >=60 [facility] Comment on above: Performed By: #### C MP, LIPA #### [facility] [address] [address] [address] Todd Moreno EGFR-NON AF MALAGASY >60 Normal >=60 [facility] Comment on above: Performed By: #### C MP, LIPA #### [facility] [address] [place] [address] Dr. Todd Moreno Globulin (S) [Mass/Vol] 3.7 g/dL Normal [facility] Comment on above: Performed By: #### C MP, LIPA #### [facility] [address] [place] [address] Dr. Todd Moreno Glucose [Mass/Vol] 98 mg/dL Normal 74-106 [facility] Comment on above: Performed By: #### C MP, LIPA #### [facility] [address] [place] [address] Dr. Todd Moreno Potassium [Moles/Vol] 4.0 mmol/L Normal 3.5-5.1 [facility] Comment on above: Performed By: #### C MP, LIPA #### [facility] [address] [place] [address] Dr. Todd Moreno Protein [Mass/Vol] 7.4 g/dL Normal 6.4-8.2 [facility] Comment on above: Performed By: #### C MP, LIPA #### [facility] [address] [place] [address] Dr. Todd Moreno Sodium [Moles/Vol] 137 mmol/L Normal 136-145 [facility] Comment on above: Performed By: #### C MP, LIPA #### [facility] [address] [place] [address] Dr. Todd Moreno Urea nitrogen [Mass/Vol] 15.0 mg/dL Normal 7.0-18.0 [facility] Comment on above: Performed By: #### C MP, LIPA #### [facility] [address] [place] [address] Dr. Todd Moreno Urea nitrogen/Creatinine [Mass ratio] 17.2 mg/mg Normal [facility] Comment on above: Performed By: #### C MP, LIPA #### [facility] [address] [place] [address] Dr. Todd Moreno URINE MICROSCOPIC ONLYon BACTERIA SMALL Abnormal NONE SEEN [facility] Comment on above: Performed By: #### P TT, PT #### [facility] [address] [place] [address] Dr. Todd Moreno Bacteria identified Cx Nom (U) INDICATED Normal [facility] Comment on above: Performed By: #### P TT, PT #### [facility] [address] [place] [address] Dr. Todd Moreno CAST NONE SEEN Normal NONE SEEN [facility] Comment on above: Performed By: #### P TT, PT #### [facility] [address] [place] [address] Dr. Todd Moreno Crystals LM Nom (Urine sed) NONE SEEN Normal NONE SEEN [facility] Comment on above: Performed By: #### P TT, PT #### [facility] [address] [place] [address] Dr. Todd Moreno Epithelial cells LM Ql (Urine sed) FEW Abnormal NONE SEEN /RARE [facility] Comment on above: Performed By: #### P TT, PT #### [facility] [address] [place] [address] Dr. Todd Moreno MUCOUS NONE SEEN Normal NONE SEEN [facility] Comment on above: Performed By: #### P TT, PT #### [facility] [address] [place] [address] Dr. Todd Moreno RBC 0-2 Normal 0-2 [facility] Comment on above: Performed By: #### P TT, PT #### [facility] [address] [place] [address] Dr. Todd Moreno WBC 10-20 Abnormal NONE SEEN [facility] Comment on above: Performed By: #### P TT, PT #### [facility] [address] [address] [address] Todd Moreno ESTROGENon 10-20-2021 Estrogens, Total 68 pg/mL Normal [facility] Comment on above: Result Comment: Prep ubertal < 40 Female Cycle: 1-10 Days 16 - 328 11-20 Days 34 - 501 21-30 Days 48 - 350 Post-Menopausal 40 - 244 Performed By: #### P TT, PT #### [facility] [address] [address] [address] Todd Moreno ESTRADIOLon 10-16-2021 Estradiol 62.1 pg/mL Normal [facility] Comment on above: Result Comment: Adul t Female: Follicular phase 12.5 - 166.0 Ovulation phase 85.8 - 498.0 Luteal phase 43.8 - 211.0 Postmenopausal <6.0 - 54.7 1st trimester 215.0 - >4300.0 Ramos ECLIA methodology Performed By: #### E STRADI #### [facility] [address] [place] [address] Dr. Todd Moreno FSHon 10-16-2021 FSH 5.6 mIU/mL Normal [facility] Comment on above: Result Comment: Adul t Female: Follicular phase 3.5 - 12.5 Ovulation phase 4.7 - 21.5 Luteal phase 1.7 - 7.7 Postmenopausal 25.8 - 134.8 Performed By: #### P TT, PT #### [facility] [address] [place] [address] Dr. Todd Moreno LUTEINIZING HORMONE (LH)on 0 10-16-2021 LH 12.1 mIU/mL Normal [facility] Comment on above: Result Comment: Adul t Female: Follicular phase 2.4 - 12.6 Ovulation phase 14.0 - 95.6 Luteal phase 1.0 - 11.4 Postmenopausal 7.7 - 58.5 Performed By: #### P TT, PT #### [facility] [address] [address] [address] Todd Moreno CBC AUTO DIFFon 10-15-2021 BASO # 0.0 103/ul Normal 0.0-0.1 [facility] Comment on above: Performed By: #### P TT, PT #### [facility] [address] [place] [address] Dr. Todd Moreno Basophils/100 WBC (Bld) 0.6 % Normal 0.2-2.0 [facility] Comment on above: Performed By: #### P TT, PT #### [facility] [address] [place] [address] Dr. Todd Moreno EO # 0.1 103/ul Normal 0.0-0.7 [facility] Comment on above: Performed By: #### P TT, PT #### [facility] [address] [place] [address] Dr. Todd Moreno Eosinophils/100 WBC (Bld) 2.1 % Normal 0.9-7.0 [facility] Comment on above: Performed By: #### P TT, PT #### [facility] [address] [place] [address] Dr. Todd Moreno Erythrocyte distribution width (RBC) [Ratio] 14.0 % Normal 11.0-15.0 [facility] Comment on above: Performed By: #### P TT, PT #### [facility] [address] [place] [address] Dr. Todd Moreno Hematocrit (Bld) [Volume fraction] 37.0 % Normal 36.0-48.0 [facility] Comment on above: Performed By: #### P TT, PT #### [facility] [address] [place] [address] Dr. Todd Moreno Hemoglobin (Bld) [Mass/Vol] 11.6 g/dL Critically low 12.0-16.0 [facility] Comment on above: Performed By: #### P TT, PT #### [facility] [address] [place] [address] Dr. Todd Moreno IG # 0.01 10e3/ul Normal 0.00-0.03 [facility] Comment on above: Performed By: #### P TT, PT #### [facility] [address] [address] [address] Todd Moreno IG % 0.2 % Normal 0.0-0.5 [facility] Comment on above: Performed By: #### P TT, PT #### [facility] [address] [address] [address] Todd Moreno LYMPH # 2.2 103/ul Normal 1.2-3.8 [facility] Comment on above: Performed By: #### P TT, PT #### [facility] [address] [address] [address] Todd Moreno Lymphocytes/100 WBC (Bld) 33.1 % Normal 20.5-60.0 [facility] Comment on above: Performed By: #### P TT, PT #### [facility] [address] [address] [address] Todd Moreno MANUAL DIFF REQ NO Normal [facility] Comment on above: Performed By: #### P TT, PT #### [facility] [address] [address] [address] Todd Moreno MCH (RBC) [Entitic mass] 26.3 pg Critically low 26.7-34.0 [facility] Comment on above: Performed By: #### P TT, PT #### [facility] [address] [address] [address] Todd Mroeno MCHC (RBC) [Mass/Vol] 31.4 g/dL Normal 29.9-35.2 [facility] Comment on above: Performed By: #### P TT, PT #### [facility] [address] [address] [address] Todd Moreno MCV (RBC) [Entitic vol] 83.9 fL Normal 81.0-99.0 [facility] Comment on above: Performed By: #### P TT, PT #### [facility] [address] [address] [address] Todd Moreno MONO # 0.2 103/ul Critically low 0.3-0.8 [facility] Comment on above: Performed By: #### P TT, PT #### [facility] [address] [place] [address] Dr. Todd Moreno Monocytes/100 WBC (Bld) 3.5 % Normal 1.7-12.0 [facility] Comment on above: Performed By: #### P TT, PT #### [facility] [address] [place] [address] Dr. Todd Moreno NEUT # 4.0 103/ul Normal 1.4-6.5 [facility] Comment on above: Performed By: #### P TT, PT #### [facility] [address] [place] [address] Dr. Todd Moreno Neutrophils/100 WBC (Bld) 60.5 % Normal 43.0-75.0 [facility] Comment on above: Performed By: #### P TT, PT #### [facility] [address] [place] [address] Dr. Todd Moreno Platelet mean volume (Bld) [Entitic vol] 10.6 fL Normal 9.5-13.5 [facility] Comment on above: Performed By: #### P TT, PT #### [facility] [address] [place] [address] Dr. Todd Moreno PLT 263 103/ul Normal 150-450 [facility] Comment on above: Performed By: #### P TT, PT #### [facility] [address] [place] [address] Dr. Todd Moreno RBC 4.41 106/ul Normal 4.20-5.40 [facility] Comment on above: Performed By: #### P TT, PT #### [facility] [address] [place] [address] Dr. Todd Moreno WBC 6.6 103/ul Normal 4.0-11.0 [facility] Comment on above: Performed By: #### P TT, PT #### [facility] [address] [place] [address] Dr. Todd Moreno FREE T4on 10-15-2021 Free T4 [Mass/Vol] 1.05 ng/dL Normal 0.76-1.46 [facility] Comment on above: Performed By: #### P TT, PT #### [facility] [address] [place] [address] Dr. Todd Moreno PROTIMEon 10-15-2021 INR Coag (PPP) [Relative time] 1.02 {INR} Normal [facility] Comment on above: Performed By: #### P TT, PT #### [facility] [address] [place] [address] Dr. Todd Moreno INR GUIDELINES SEE BELOW Normal [facility] Comment on above: Result Comment: RAMÓN RED INR: 2.0 - 3.0 CONDITIONS NOT LISTED BELOW 2.5 - 3.5 FOR PROSTHETIC HEART VALVE REPLACEMENT 2.5 - 3.5 RECURRENT THROMBOSIS Performed By: #### P TT, PT #### [facility] [address] [place] [address] Dr. Todd Moreno PT Coag (PPP) [Time] 11.0 s Normal 9.0-11.6 [facility] Comment on above: Performed By: #### P TT, PT #### [facility] [address] [place] [address] Dr. Todd Moreno PTTon 10-15-2021 aPTT Coag (Bld) [Time] 32.4 s Normal 22.3-36.2 [facility] Comment on above: Performed By: #### P TT, PT #### [facility] [address] [place] [address] Dr. Todd Moreno TSHon 10-15-2021 TSH 1.777 uIU/mL Normal 0.358-3.740 [facility] Comment on above: Performed By: #### P TT, PT #### [facility] [address] [place] [address] Dr. Todd Moreno PAP ACOG PANEL 2: 30 to 65on 10-10-2021 . . Normal [facility] Comment on above: Result Comment: Perf ormed at: WB Performed By: #### [id number] #### [facility] [address] [place] [address] Dr. Todd Moreno Age Gdln ACOG Testing 30-65 [facility] Comment on above: Performed By: #### [id number] #### [facility] [address] [address] [address] Todd Moreno DIAGNOSIS: Comment Normal [facility] Comment on above: Result Comment: NEGA TIVE FOR INTRAEPITHELIAL LESION OR MALIGNANCY. Performed at: WB Performed By: #### [id number] #### [facility] [address] [address] [address] Todd Moreno HPV Aptima Negative Normal Negative [facility] Comment on above: Result Comment: This nucleic acid amplification test detects fourteen high-risk HPV types (16,18,31,33,35,39,45,51,52,56,58,59,66,68) without differentiation. Performed at: =G Performed By: #### [id number] #### [facility] [address] [address] [address] Todd Moreno Methodology: Comment Normal [facility] Comment on above: Result Comment: This liquid based ThinPrep(R) pap test was screened with the use of an image guided system. Performed at: WB Performed By: #### [id number] #### [facility] [address] [address] [address] Todd Moreno Note: Comment Normal [facility] Comment on above: Result Comment: The Pap smear is a screening test designed to aid in the detection of premalignant and malignant conditions of the uterine cervix. It is not a diagnostic procedure and should not be used as the sole means of detecting cervical cancer. Both false-positive and false-negative reports do occur. . Performed at: WB Performed By: #### [id number] #### [facility] [address] [address] [address] Todd Moreno Performed by: Comment Normal [facility] Comment on above: Result Comment: Magalie Lemus Hitch Technician (ASCP) Performed at: WB Performed By: #### [id number] #### [facility] [address] [address] [address] Todd Moreno Specimen adequacy: Comment Normal [facility] Comment on above: Result Comment: Sati sfactory for evaluation. Endocervical and/or squamous metaplastic cells (endocervical component) are present. Performed at: WB Performed By: #### [id number] #### [facility] [address] [place] [address] Dr. Todd Moreno COVID-19 Antigenon 2 COVID-19 [...] its performance Corinne Disclaimer characteristic determined by [employer] and Corinne Disclaimer validated at [facility]. This Corinne Disclaimer test has not [...] is terminated or revoked sooner. PERFORMED BY: [place] [address] PATHOLOGIST STAMP PAD MAKER JONATHAN SHEPARD M.D. Normal [facility] Comment on above: Performed By: #### S OFIANEG, COVID-19 CORINNE #### [facility] [address] [place] [address] HCG,Urineon 03-30-2021 Beta HCG ( test) Ql (U) Negative Normal [facility] Comment on above: Result Comment: PERF ORMED BY: [place] [address] PATHOLOGIST STAMP PAD MAKER JONATHAN SHEPARD M.D. Performed By: #### U HCG #### [facility] [address] [place] [address] Corinne Ag Negativeon 03-30-19 Corinne Ag Negative Negative Normal Negative [facility] Comment on above: Result Comment: This is a duplicate Corinne SARS Antigen (KAEL) result to be used for statistical tracking purpose only. PERFORMED BY: [place] [address] PATHOLOGIST STAMP PAD MAKER JONATHAN SHEPARD M.D. Performed By: #### S OFIANEG, COVID-19 CORINNE #### [facility] [address] [place] [address] COVID-19 MUSCOGEEon 03-28-2021 SARS-CoV-2 (COVID-19) RNA JESE+probe Ql (Unsp spec) Negative Normal Negative [facility] Comment on above: Order Comment: Healt hcare Worker?: N Result Comment: Testing for SARS-CoV-2 by RT-PCR This test was developed and its performance characteristics determined by [employer]) and validated at the [facility]. This test has not been FDA [...] is terminated or revoked sooner. PERFORMED BY: [place] [address] PATHOLOGIST STAMP PAD MAKER JONATHAN SHEPARD M.D. Performed By: #### C OVID 19 [place] #### [place] [id number] [facility] XR elbow LT 2Von 03-01-2021 XR elbow LT 2V [facility] Main [place] [address] [place] [address] XRay Report Signed Patient: Danyell Almaguer MR#: [id number] : 1985 Acct:[id number] Age/Sex: 35 / F ADM Date: 03/01/21 Loc[place] [facility] [place] Room: Type: [facility] Attending Dr: Leandro Robles MD Ordering [...] Valdez Mcwilliams M.D.03/01/2021 1:47 PM Dictation Location: [place] [address] Transcribed By: [facility] 03/01/21 1347 Dictated By: Valdez Mcwilliams DO 03/01/21 1344 Signed By: 03/01/21 1347 [facility] XR FOREARM LEFT 2 VIEWSon XR FOREARM [...] are recommended in 7 to 10 days. [facility][id number] Workstation ID: [id number] Dictated by: MAR DAWSON on SunSep 08, 2020 11:41:42 PM EDT Transcribed by: SHERRILL SMYTH on SunSep 09, 2020 12:10:05 AM EDT Finalized by: MAR DAWSON on SunSep 09, 2020 12:16:[address] [facility] Comment on above: Order Comment: Injur [...] on SunSep 08, 2020 11:42:[address] [facility] Comment on above: Order Comment: Injur y/Trauma or Illness?:Injury/Trauma How long have you had these symptoms (acute/chronic)?:Acute Reason for exam?:fall, pain to left shoulder radiating down arm History of cancer?:no Surgeries, chemotherapy, or radiation?:no Type of Exam?:Initial Mechanism of injury?:fall Vital Signs Date Time Vital Sign Value Performing Clinician Erki wilson 03-01-2021 11:00-0500 Body height 170.18 cm Leandro Robles Other [facility] Other 03-01-2021 11:00-0500 Body mass index (BMI) [Ratio] 30.07 kg/m2 Leandro Travis Other [facility] Other 03-01-2021 11:00-0500 Body weight 87.09 kg Leandro Robles Other [facility] Other Encounters Encounter Date Encounter Type Care [...] 03-01-2021 End: 03-01-2021 ambulatory Leandro Robles Other [facility] Other Start: 03-01-2021 Encounter for other preprocedural examination Leandro Robles [facility] Start: 03-01-2021 Office outpatient ne w 45 minutes Leandro Robles [facility] Start: 09-09-2020 End: 09-09-2020 [facility] Payers Date Payer Category Payer Private Health Insurance [id number] 2019 Unknown [id number] 1985 Unknown [id number] 2.16. [id number] 1985 Unknown [id number] 2.16.84 [id number] 1985 Unknown [id number] 2.16.84 [id number] 1985 Unknown [id number] 2.16.84 [id number] 1985 Unknown [id number] 2.16.84 [id number] 1986 Unknown [id number] 2.16.84 [id number] 1986 Unknown [id number] 2.16.84 [id number] 1986 Unknown [id number] 2.16.84 [id number] 1986 Unknown [id number] 2.16.840 .[id number] 1986 Unknown [id number] 2.16.840 .[id number] 1959 Self-pay 1959 Unknown [id number] 1959 Unknown [id number] 1959 Unknown [id number] Unknown [id number] .16.84 [id number] Social History Date Type Detail Facility Sex Assigned At [facility] Other Evaluation note 03-01-2021 Note Date & Type Note Facility 03-01-2021 Evaluation note Encounter Date Diagnosis Assessment Notes Feb, Closed fracture of capitellum of left humerus with routine healing (ICD-10 - S42.452D) MRI reviewed with patient as healing fractures within the elbow. Discussed that her lacking range of motion may be a custodial condition, with or without surgical intervention. Instructed [...] M24.022) Feb, Pre-op exam (ICD-10 - Z01.818) [facility] Other History general Narrative - Reported Note Date & Type Note Facility History general Narrative - Reported Type Medical History ADHD [facility] Other Summary Purpose Family History No Family History Records FoundNo Family History Records FoundNo Family History Records FoundNo Family History Records Found Advance Directives No Advanced Directives Records FoundNo Advanced Directives Records FoundNo Advanced Directives Records FoundNo Advanced Directives Records Found Additional Source Comments INFORMATION SOURCE (unrecogn ized section and content) DATE CREATED AUTHOR 09/14/2020 [facility] DATE CREATED AUTHOR AUTHOR'S ORGANIZ ATION 10/06/2021 [facility] DATE CREATED AUTHOR AUTHOR'S ORGANIZ ATION 06/08/2022 [facility] DATE CREATED AUTHOR AUTHOR'S ORGANIZ ATION 05/21/2023 [facility] EPIC REASON FOR VISIT (unrecogniz [...] BE BASED ON THE PRIMARY CLINICAL RECORDS. [employer] [facility]. provides no warranty or guarantee of the accuracy or completeness of information in this document.
[2023-06-25 11:08] LABS: HCG Quantitative 21 mIU/mL
== END 2023-06-25 10:07 | disposition home or self-care (01) ==
LOC: LAB 10:07
PROVIDERS: Visit Provider Obstetrics & Gynecology
DX: Z32.01 Encounter for pregnancy test, result positive (principal); Z87.59 Personal history of other complications of pregnancy, childbirth and the puerperium
CPT/HCPCS: 36415; 84702

== ENCOUNTER 2023-07-02 11:00 | Outpatient (OUT) | payer OTHER, SELFPAY ==
--- OUTSIDE RECORDS SUMMARY | 2023-07-02 11:19 | XMS_ITS | CCD ---
Author Organization [facility] Care Team Providers Care Gum Cook Name Role Phone HUBER LUNDBERGDIJA Attending Unavailable [...] Unavailable AYESHA ., DR MCCLOUD Admitting Unavailable HEWETT, DR CARIDAD Martin Consulting Unavailable AYESHA ., DR MCCLOUD Attending Unavailable AYESHA ., DR MCCLOUD Consulting Unavailable MISC, DR JACKSON Primary Care Unavailable AYESHA ., DR MCCLOUD Admitting Unavailable AYESHA ., DR MCCLOUD Attending Unavailable AYESHA ., DR MCCLUOD Consulting Unavailable AYESHA ., DR MCCLOUD Admitting [...] Chlamydia trachomatis, JESE Negative Normal Negative [facility] Comment on above: Performed By: #### P TT, PT #### [facility] [address] [address] [address] Todd Moreno Neisseria gonorrhoeae, JESE Negative Normal Negative [facility] Comment on above: Performed By: #### P TT, PT #### [facility] [address] [address] [address] Todd Moreno VAGINITIS/VAGINOSIS DNA PROB Shaheed 06-01-2022 Tatyana species Negative Normal Negative [facility] Comment on above: Performed By: #### P TT, PT #### [facility] [address] [address] [address] Todd Moreno Gardnerella vaginalis Negative Normal Negative [facility] Comment on above: Performed By: #### P TT, PT #### [facility] [address] [address] [address] Todd Moreno Trichomonas vaginalis Negative Normal Negative [facility] Comment on above: Performed By: #### P TT, PT #### [facility] [address] [address] [address] Todd Moreno HEP B SURFACE ANTIGEN SCREEN on 03-22-2022 HBsAg Screen Negative Normal Negative [facility] Comment on above: Performed By: #### H BSANS #### [facility] [address] [place] [address] Dr. Todd Moreno HEPATITIS C VIRUS AB W/ REFL EX QUANTon 03-22-2022 HCV AB 0.1 s/co ratio Normal 0.0-0.9 [facility] Comment on above: Performed By: #### P TT, PT #### [facility] [address] [address] [address] Todd Moreno Interpretation: Comment Normal [facility] Comment on above: Result Comment: Nega tive Not infected with HCV, unless recent infection is suspected or other evidence exists to indicate HCV infection. Performed By: #### P TT, PT #### [facility] [address] [place] [address] Dr. Todd Moreno HIV 1 AND 2 WITH REFLEXon HIV Screen 4th Generation wRfx Non-Reactive Normal Non Reactive [facility] Comment on above: Result Comment: HIV Negative HIV-1/HIV-2 antibodies and HIV-1 p24 antigen were NOT detected. There is no laboratory evidence of HIV infection. Performed By: #### H IV12 #### [facility] [address] [place] [address] Dr. Todd Moreno RPR QUANTon 03-22-2022 Rapid Plasma Reagin, Quant Non-Reactive Normal NonRea<1:1 [facility] Comment on above: Result Comment: Plea se Note: This test does not meet current guidelines for screening and diagnosis of syphilis. This test is intended for following treatment response in patients being treated for syphilis infection. To screen for syphilis infection, a reflex cascade that includes both RPR and a treponema-specific assay should be utilized, such as Treponema pallidum (Syphilis) Screening Riley (368293) or Rapid Plasma Reagin (RPR) Test With Reflex to Quantitative RPR and Confirmatory Treponema pallidum Antibodies (725121). Performed By: #### R PRQ #### [facility] [address] [place] [address] Dr. Todd Moreno RUBELLA AB IGGon 03-22-2022 Rubella Antibodies, IgG 5.11 index Normal Immune >0.99 [facility] Comment on above: Result Comment: Non- immune <0.90 Equivocal 0.90 - 0.99 Immune >0.99 Performed By: #### R PRQ #### [facility] [address] [place] [address] Dr. Todd Moreno CBC AUTO DIFFon 03-20-2022 BASO # 0.0 103/ul Normal 0.0-0.1 [facility] Comment on above: Performed By: #### P TT, PT #### [facility] [address] [place] [address] Dr. Todd Moreno Basophils/100 WBC (Bld) 0.3 % Normal 0.2-2.0 [facility] Comment on above: Performed By: #### P TT, PT #### [facility] [address] [place] [address] Dr. Todd Moreno EO # 0.1 103/ul Normal 0.0-0.7 [facility] Comment on above: Performed By: #### P TT, PT #### [facility] [address] [place] [address] Dr. Todd Moreno Eosinophils/100 WBC (Bld) 1.0 % Normal 0.9-7.0 [facility] Comment on above: Performed By: #### P TT, PT #### [facility] [address] [place] [address] Dr. Todd Moreno Erythrocyte distribution width (RBC) [Ratio] 14.4 % Normal 11.0-15.0 [facility] Comment on above: Performed By: #### P TT, PT #### [facility] [address] [place] [address] Dr. Todd Moreno Hematocrit (Bld) [Volume fraction] 38.2 % Normal 36.0-48.0 [facility] Comment on above: Performed By: #### P TT, PT #### [facility] [address] [place] [address] Dr. Todd Moreno Hemoglobin (Bld) [Mass/Vol] 12.2 g/dL Normal 12.0-16.0 [facility] Comment on above: Performed By: #### P TT, PT #### [facility] [address] [place] [address] Dr. Todd Moreno IG # 0.03 10e3/ul Normal 0.00-0.03 [facility] Comment on above: Performed By: #### P TT, PT #### [facility] [address] [place] [address] Dr. Todd Moreno IG % 0.3 % Normal 0.0-0.5 [facility] Comment on above: Performed By: #### P TT, PT #### [facility] [address] [place] [address] Dr. Todd Moreno LYMPH # 1.9 103/ul Normal 1.2-3.8 [facility] Comment on above: Performed By: #### P TT, PT #### [facility] [address] [place] [address] Dr. Todd Moreno Lymphocytes/100 WBC (Bld) 19.0 % Critically low 20.5-60.0 [facility] Comment on above: Performed By: #### P TT, PT #### [facility] [address] [place] [address] Dr. Todd Moreno MANUAL DIFF REQ NO Normal [facility] Comment on above: Performed By: #### P TT, PT #### [facility] [address] [place] [address] Dr. Todd Moreno MCH (RBC) [Entitic mass] 26.1 pg Critically low 26.7-34.0 [facility] Comment on above: Performed By: #### P TT, PT #### [facility] [address] [place] [address] Dr. Todd Moreno MCHC (RBC) [Mass/Vol] 31.9 g/dL Normal 29.9-35.2 [facility] Comment on above: Performed By: #### P TT, PT #### [facility] [address] [place] [address] Dr. Todd Moreno MCV (RBC) [Entitic vol] 81.6 fL Normal 81.0-99.0 [facility] Comment on above: Performed By: #### P TT, PT #### [facility] [address] [place] [address] Dr. Todd Moreno MONO # 0.4 103/ul Normal 0.3-0.8 [facility] Comment on above: Performed By: #### P TT, PT #### [facility] [address] [place] [address] Dr. Todd Moreno Monocytes/100 WBC (Bld) 4.4 % Normal 1.7-12.0 [facility] Comment on above: Performed By: #### P TT, PT #### [facility] [address] [place] [address] Dr. Todd Moreno NEUT # 7.5 103/ul Critically high 1.4-6.5 [facility] Comment on above: Performed By: #### P TT, PT #### [facility] [address] [place] [address] Dr. Todd Morneo Neutrophils/100 WBC (Bld) 75.0 % Normal 43.0-75.0 [facility] Comment on above: Performed By: #### P TT, PT #### [facility] [address] [place] [address] Dr. Todd Moreno Platelet mean volume (Bld) [Entitic vol] 10.4 fL Normal 9.5-13.5 [facility] Comment on above: Performed By: #### P TT, PT #### [facility] [address] [place] [address] Dr. Todd Moreno PLT 302 103/ul Normal 150-450 [facility] Comment on above: Performed By: #### P TT, PT #### [facility] [address] [place] [address] Dr. Todd Moreno RBC 4.68 106/ul Normal 4.20-5.40 [facility] Comment on above: Performed By: #### P TT, PT #### [facility] [address] [place] [address] Dr. Todd Moreno WBC 10.1 103/ul Normal 4.0-11.0 [facility] Comment on above: Performed By: #### P TT, PT #### [facility] [address] [place] [address] Dr. Todd Moreno CULTURE URINEon 03-20-2022 CULTURE URINE Culture Observations : MODERATE GROWTH OF MIXED GENITAL LORA. NO POTENTIAL PATHOGENS SEEN. Normal [facility] Comment on above: Performed By: #### P TT, PT #### [facility] [address] [place] [address] Dr. Todd Moreno GLYCOHEMOGLOBIN A1Con 2022 ADA RECOMMENDATION SEE BELOW Normal [facility] Comment on above: Result Comment: ADA RECOMMENDED LIMIT 4.0 - 6.0 ADA THERAPEUTIC TARGET < 7.0 ACTION SUGGESTED > 7.0 Performed By: #### A 1C #### [facility] [address] [place] [address] Dr. Todd Moreno Glucose [Mass/Vol] 105 mg/dL Normal [facility] Comment on above: Performed By: #### A 1C #### [facility] [address] [place] [address] Dr. Todd Moreno HbA1c (Bld) [Mass fraction] 5.3 % Normal 4.5-6.2 [facility] Comment on above: Performed By: #### A 1C #### [facility] [address] [place] [address] Dr. Todd Moreno BENJAMIN BOX TEST PT SEND OUTo n 03-20-2022 SENT TO REF LAB 03/20/2022 Normal [facility] Comment on above: Performed By: #### P TT, PT #### [facility] [address] [address] [address] Todd Moreno TYPE AND SCREENon 03-20-2022 TYPE AND SCREEN Negative Normal [facility] Comment on above: Performed By: #### P TT, PT #### [facility] [address] [address] [address] Todd Moreno US PREG TVon 02-24-2022 [...] CARIDAD DOBSON Date: 2022-02-24 16:16 Normal [facility] CULTURE URINEon 02-03-2022 CULTURE URINE [...] F Oxacillin 0.5 S F Normal [facility] Comment on above: Performed By: #### P TT, PT #### [facility] [address] [address] [address] Todd Moreno US PREG TVon 02-01-2022 [...] ETHAN MERCER Date: 2022-01-31 22:05 Normal [facility] CBC AUTO DIFFon 01-31-2022 BASO # 0.1 103/ul Normal 0.0-0.1 [facility] Comment on above: Performed By: #### P TT, PT #### [facility] [address] [address] [address] Todd Moreno Basophils/100 WBC (Bld) 0.8 % Normal 0.2-2.0 [facility] Comment on above: Performed By: #### P TT, PT #### [facility] [address] [address] [address] Todd Moreno EO # 0.5 103/ul Normal 0.0-0.7 [facility] Comment on above: Performed By: #### P TT, PT #### [facility] [address] [place] [address] Dr. Todd Moreno Eosinophils/100 WBC (Bld) 5.4 % Normal 0.9-7.0 [facility] Comment on above: Performed By: #### P TT, PT #### [facility] [address] [place] [address] Dr. Todd Moreno Erythrocyte distribution width (RBC) [Ratio] 15.0 % Normal 11.0-15.0 [facility] Comment on above: Performed By: #### P TT, PT #### [facility] [address] [place] [address] Dr. Todd Moreno Hematocrit (Bld) [Volume fraction] 34.3 % Critically low 36.0-48.0 [facility] Comment on above: Performed By: #### P TT, PT #### [facility] [address] [place] [address] Dr. Todd Moreno Hemoglobin (Bld) [Mass/Vol] 11.2 g/dL Critically low 12.0-16.0 [facility] Comment on above: Performed By: #### P TT, PT #### [facility] [address] [place] [address] Dr. Todd Moreno IG # 0.02 10e3/ul Normal 0.00-0.03 [facility] Comment on above: Performed By: #### P TT, PT #### [facility] [address] [place] [address] Dr. Todd Moreno IG % 0.2 % Normal 0.0-0.5 [facility] Comment on above: Performed By: #### P TT, PT #### [facility] [address] [place] [address] Dr. Todd Moreno LYMPH # 2.7 103/ul Normal 1.2-3.8 [facility] Comment on above: Performed By: #### P TT, PT #### [facility] [address] [place] [address] Dr. Todd Moreno Lymphocytes/100 WBC (Bld) 29.9 % Normal 20.5-60.0 [facility] Comment on above: Performed By: #### P TT, PT #### [facility] [address] [place] [address] Dr. Tdod Moreno MANUAL DIFF REQ NO Normal [facility] Comment on above: Performed By: #### P TT, PT #### [facility] [address] [place] [address] Dr. Todd Moreno MCH (RBC) [Entitic mass] 26.7 pg Normal 26.7-34.0 [facility] Comment on above: Performed By: #### P TT, PT #### [facility] [address] [place] [address] Dr. Todd Moreno MCHC (RBC) [Mass/Vol] 32.7 g/dL Normal 29.9-35.2 [facility] Comment on above: Performed By: #### P TT, PT #### [facility] [address] [place] [address] Dr. Todd Moreno MCV (RBC) [Entitic vol] 81.7 fL Normal 81.0-99.0 [facility] Comment on above: Performed By: #### P TT, PT #### [facility] [address] [place] [address] Dr. Todd Moreno MONO # 0.5 103/ul Normal 0.3-0.8 [facility] Comment on above: Performed By: #### P TT, PT #### [facility] [address] [place] [address] Dr. Todd Moreno Monocytes/100 WBC (Bld) 5.7 % Normal 1.7-12.0 [facility] Comment on above: Performed By: #### P TT, PT #### [facility] [address] [place] [address] Dr. Todd Moreno NEUT # 5.2 103/ul Normal 1.4-6.5 [facility] Comment on above: Performed By: #### P TT, PT #### [facility] [address] [place] [address] Dr. Todd Moreno Neutrophils/100 WBC (Bld) 58.0 % Normal 43.0-75.0 [facility] Comment on above: Performed By: #### P TT, PT #### [facility] [address] [place] [address] Dr. Todd Moreno Platelet mean volume (Bld) [Entitic vol] 10.4 fL Normal 9.5-13.5 [facility] Comment on above: Performed By: #### P TT, PT #### [facility] [address] [place] [address] Dr. Todd Moreno PLT 270 103/ul Normal 150-450 [facility] Comment on above: Performed By: #### P TT, PT #### [facility] [address] [place] [address] Dr. Todd Moreno RBC 4.20 106/ul Normal 4.20-5.40 [facility] Comment on above: Performed By: #### P TT, PT #### [facility] [address] [place] [address] Dr. Todd Moreno WBC 9.1 103/ul Normal 4.0-11.0 [facility] Comment on above: Performed By: #### P TT, PT #### [facility] [address] [place] [address] Dr. Todd Moreno ER URINE PROFILEon 2 Bilirubin Ql (U) Negative Normal NEGATIVE [facility] Comment on above: Performed By: #### P TT, PT #### [facility] [address] [place] [address] Dr. Todd Moreno Clarity (U) CLEAR Normal CLEAR [facility] Comment on above: Performed By: #### P TT, PT #### [facility] [address] [place] [address] Dr. Todd Moreno Color (U) YELLOW Normal YELLOW [facility] Comment on above: Performed By: #### P TT, PT #### [facility] [address] [place] [address] Dr. Todd SALINAS A micrscopic examination will be performed if indicated. Normal [facility] Comment on above: Performed By: #### P TT, PT #### [facility] [address] [address] [address] Todd Moreno Glucose Ql (U) Negative Normal NEGATIVE [facility] Comment on above: Performed By: #### P TT, PT #### [facility] [address] [address] [address] Todd Moreno Hemoglobin Ql (U) TRACE-INTACT Abnormal NEGATIVE [facility] Comment on above: Performed By: #### P TT, PT #### [facility] [address] [address] [address] Todd Moreno Ketones Ql (U) Negative Normal NEGATIVE [facility] Comment on above: Performed By: #### P TT, PT #### [facility] [address] [place] [address] Dr. Todd Moreno LEUKOCYTES SMALL Abnormal NEGATIVE [facility] Comment on above: Performed By: #### P TT, PT #### [facility] [address] [place] [address] Dr. Todd Moreno Nitrite Ql (U) Negative Normal NEGATIVE [facility] Comment on above: Performed By: #### P TT, PT #### [facility] [address] [place] [address] Dr. Todd Moreno pH (U) 6.5 [pH] Normal 5-9 [facility] Comment on above: Performed By: #### P TT, PT #### [facility] [address] [place] [address] Dr. Todd Moreno SPEC GRAVITY 1.015 Normal 1.005-<=1.025 [facility] Comment on above: Performed By: #### P TT, PT #### [facility] [address] [place] [address] Dr. Todd Moreno UA PROTEIN Negative Normal NEGATIVE/ TRACE [facility] Comment on above: Performed By: #### P TT, PT #### [facility] [address] [place] [address] Dr. Todd Moreno UR MICRO IND INDICATED Normal [facility] Comment on above: Performed By: #### P TT, PT #### [facility] [address] [place] [address] Dr. Todd Moreno Urobilinogen Qn (U) 0.2 {Tiffany'U}/dL Normal 0.2 - 1. 0 [facility] Comment on above: Performed By: #### P TT, PT #### [facility] [address] [place] [address] Dr. Todd Moreno LIPASEon 01-31-2022 Lipase [Catalytic activity/Vol] 123.0 U/L Normal 73.0-393.0 [facility] Comment on above: Performed By: #### C MP, LIPA #### [facility] [address] [place] [address] Dr. Todd Moreno PREG QUANT HCGon 01-31-2022 HCG QUANT 711 mIU/mL Normal [facility] Comment on above: Performed By: #### P TT, PT #### [facility] [address] [place] [address] Dr. Todd Moreno HCG RANGE SEE BELOW Normal [facility] Comment on above: Result Comment: 5-50 0.2-1 WEEK 50-500 1-2 WEEKS 100-5,000 2-3 WEEKS 500-10,000 3-4 WEEKS 1,000-50,000 4-5 WEEKS 10,000-100,000 5-6 WEEKS 15,000-200,000 6-8 WEEKS 10,000-100,000 2-3 MONTHS Performed By: #### P TT, PT #### [facility] [address] [place] [address] Dr. Todd Moreno PROF 14(COMP METB)on 022 Albumin [Mass/Vol] 3.7 g/dL Normal 3.4-5.0 [facility] Comment on above: Performed By: #### C MP, LIPA #### [facility] [address] [place] [address] Dr. Todd Moreno Albumin/Globulin [Mass ratio] 1.0 {ratio} Normal [facility] Comment on above: Performed By: #### C MP, LIPA #### [facility] [address] [place] [address] Dr. Todd Moreno ALP [Catalytic activity/Vol] 80 U/L Normal 46-116 [facility] Comment on above: Performed By: #### C MP, LIPA #### [facility] [address] [place] [address] Dr. Todd Moreno ALT [Catalytic activity/Vol] 23 U/L Normal 14-59 [facility] Comment on above: Performed By: #### C MP, LIPA #### [facility] [address] [place] [address] Dr. Todd Moreno Anion gap [Moles/Vol] 10.2 mmol/L Normal [facility] Comment on above: Performed By: #### C MP, LIPA #### [facility] [address] [place] [address] Dr. Todd Moreno AST [Catalytic activity/Vol] 14 U/L Critically low 15-37 [facility] Comment on above: Performed By: #### C MP, LIPA #### [facility] [address] [place] [address] Dr. Todd Moreno Bilirubin [Mass/Vol] 0.3 mg/dL Normal 0.2-1.0 [facility] Comment on above: Performed By: #### C MP, LIPA #### [facility] [address] [place] [address] Dr. Todd Moreno Calcium [Mass/Vol] 9.1 mg/dL Normal 8.5-10.1 [facility] Comment on above: Performed By: #### C MP, LIPA #### [facility] [address] [place] [address] Dr. Todd Moreno Chloride [Moles/Vol] 104 mmol/L Normal 98-107 [facility] Comment on above: Performed By: #### C MP, LIPA #### [facility] [address] [place] [address] Dr. Todd Moreno CO2 [Moles/Vol] 26.8 mmol/L Normal 21.0-32.0 [facility] Comment on above: Performed By: #### C MP, LIPA #### [facility] [address] [place] [address] Dr. Todd Moreno Creatinine [Mass/Vol] 0.87 mg/dL Normal 0.55-1.02 [facility] Comment on above: Performed By: #### C MP, LIPA #### [facility] [address] [place] [address] Dr. Todd Moreno EGFR-AF SOUTH AFRICAN >60 Normal >=60 [facility] Comment on above: Performed By: #### C MP, LIPA #### [facility] [address] [address] [address] Todd Moreno EGFR-NON AF SOUTH AFRICAN >60 Normal >=60 [facility] Comment on above: Performed By: #### C MP, LIPA #### [facility] [address] [place] [address] Dr. Todd Moreno Globulin (S) [Mass/Vol] 3.7 g/dL Normal [facility] Comment on above: Performed By: #### C MP, LIPA #### [facility] [address] [place] [address] Dr. Todd Moreno Glucose [Mass/Vol] 98 mg/dL Normal 74-106 [facility] Comment on above: Performed By: #### C MP, LIPA #### [facility] [address] [place] [address] Dr. Todd Moreno Potassium [Moles/Vol] 4.0 mmol/L Normal 3.5-5.1 [facility] Comment on above: Performed By: #### C MP, LIPA #### [facility] [address] [place] [address] Dr. Todd Moreno Protein [Mass/Vol] 7.4 g/dL Normal 6.4-8.2 [facility] Comment on above: Performed By: #### C MP, LIPA #### [facility] [address] [place] [address] Dr. Todd Moreno Sodium [Moles/Vol] 137 mmol/L Normal 136-145 [facility] Comment on above: Performed By: #### C MP, LIPA #### [facility] [address] [place] [address] Dr. Todd Moreno Urea nitrogen [Mass/Vol] 15.0 mg/dL Normal 7.0-18.0 [facility] Comment on above: Performed By: #### C MP, LIPA #### [facility] [address] [place] [address] Dr. Todd Moreno Urea nitrogen/Creatinine [Mass ratio] 17.2 mg/mg Normal [facility] Comment on above: Performed By: #### C MP, LIPA #### [facility] [address] [place] [address] Dr. Todd Moreno URINE MICROSCOPIC ONLYon BACTERIA SMALL Abnormal NONE SEEN [facility] Comment on above: Performed By: #### P TT, PT #### [facility] [address] [place] [address] Dr. Todd Moreno Bacteria identified Cx Nom (U) INDICATED Normal [facility] Comment on above: Performed By: #### P TT, PT #### [facility] [address] [place] [address] Dr. Todd Moreno CAST NONE SEEN Normal NONE SEEN [facility] Comment on above: Performed By: #### P TT, PT #### [facility] [address] [place] [address] Dr. Todd Moreno Crystals LM Nom (Urine sed) NONE SEEN Normal NONE SEEN [facility] Comment on above: Performed By: #### P TT, PT #### [facility] [address] [place] [address] Dr. Todd Moreno Epithelial cells LM Ql (Urine sed) FEW Abnormal NONE SEEN /RARE [facility] Comment on above: Performed By: #### P TT, PT #### [facility] [address] [place] [address] Dr. Todd Moreno MUCOUS NONE SEEN Normal NONE SEEN [facility] Comment on above: Performed By: #### P TT, PT #### [facility] [address] [place] [address] Dr. Todd Moreno RBC 0-2 Normal 0-2 [facility] Comment on above: Performed By: #### P TT, PT #### [facility] [address] [place] [address] Dr. Todd Moreno WBC 10-20 Abnormal NONE SEEN [facility] Comment on above: Performed By: #### P TT, PT #### [facility] [address] [address] [address] Todd Moreno ESTROGENon 10-20-2021 Estrogens, Total 68 pg/mL Normal [facility] Comment on above: Result Comment: Prep ubertal < 40 Female Cycle: 1-10 Days 16 - 328 11-20 Days 34 - 501 21-30 Days 48 - 350 Post-Menopausal 40 - 244 Performed By: #### P TT, PT #### [facility] [address] [address] [address] Todd Moreno ESTRADIOLon 10-16-2021 Estradiol 62.1 pg/mL Normal [facility] Comment on above: Result Comment: Adul t Female: Follicular phase 12.5 - 166.0 Ovulation phase 85.8 - 498.0 Luteal phase 43.8 - 211.0 Postmenopausal <6.0 - 54.7 1st trimester 215.0 - >4300.0 Ramos ECLIA methodology Performed By: #### E STRADI #### [facility] [address] [place] [address] Dr. Todd Moreno FSHon 10-16-2021 FSH 5.6 mIU/mL Normal [facility] Comment on above: Result Comment: Adul t Female: Follicular phase 3.5 - 12.5 Ovulation phase 4.7 - 21.5 Luteal phase 1.7 - 7.7 Postmenopausal 25.8 - 134.8 Performed By: #### P TT, PT #### [facility] [address] [place] [address] Dr. Todd Moreno LUTEINIZING HORMONE (LH)on 0 10-16-2021 LH 12.1 mIU/mL Normal [facility] Comment on above: Result Comment: Adul t Female: Follicular phase 2.4 - 12.6 Ovulation phase 14.0 - 95.6 Luteal phase 1.0 - 11.4 Postmenopausal 7.7 - 58.5 Performed By: #### P TT, PT #### [facility] [address] [address] [address] Todd Moreno CBC AUTO DIFFon 10-15-2021 BASO # 0.0 103/ul Normal 0.0-0.1 [facility] Comment on above: Performed By: #### P TT, PT #### [facility] [address] [place] [address] Dr. Todd Moreno Basophils/100 WBC (Bld) 0.6 % Normal 0.2-2.0 [facility] Comment on above: Performed By: #### P TT, PT #### [facility] [address] [place] [address] Dr. Todd Moreno EO # 0.1 103/ul Normal 0.0-0.7 [facility] Comment on above: Performed By: #### P TT, PT #### [facility] [address] [place] [address] Dr. Todd Moreno Eosinophils/100 WBC (Bld) 2.1 % Normal 0.9-7.0 [facility] Comment on above: Performed By: #### P TT, PT #### [facility] [address] [place] [address] Dr. Todd Moreno Erythrocyte distribution width (RBC) [Ratio] 14.0 % Normal 11.0-15.0 [facility] Comment on above: Performed By: #### P TT, PT #### [facility] [address] [place] [address] Dr. Todd Moreno Hematocrit (Bld) [Volume fraction] 37.0 % Normal 36.0-48.0 [facility] Comment on above: Performed By: #### P TT, PT #### [facility] [address] [place] [address] Dr. Todd Moreno Hemoglobin (Bld) [Mass/Vol] 11.6 g/dL Critically low 12.0-16.0 [facility] Comment on above: Performed By: #### P TT, PT #### [facility] [address] [place] [address] Dr. Todd Moreno IG # 0.01 10e3/ul Normal 0.00-0.03 [facility] Comment on above: Performed By: #### P TT, PT #### [facility] [address] [address] [address] Todd Moreno IG % 0.2 % Normal 0.0-0.5 [facility] Comment on above: Performed By: #### P TT, PT #### [facility] [address] [address] [address] Todd Moreno LYMPH # 2.2 103/ul Normal 1.2-3.8 [facility] Comment on above: Performed By: #### P TT, PT #### [facility] [address] [address] [address] Todd Moreno Lymphocytes/100 WBC (Bld) 33.1 % Normal 20.5-60.0 [facility] Comment on above: Performed By: #### P TT, PT #### [facility] [address] [address] [address] Todd Moreno MANUAL DIFF REQ NO Normal [facility] Comment on above: Performed By: #### P TT, PT #### [facility] [address] [address] [address] Todd Moreno MCH (RBC) [Entitic mass] 26.3 pg Critically low 26.7-34.0 [facility] Comment on above: Performed By: #### P TT, PT #### [facility] [address] [address] [address] Todd Moreno MCHC (RBC) [Mass/Vol] 31.4 g/dL Normal 29.9-35.2 [facility] Comment on above: Performed By: #### P TT, PT #### [facility] [address] [address] [address] Todd Moreno MCV (RBC) [Entitic vol] 83.9 fL Normal 81.0-99.0 [facility] Comment on above: Performed By: #### P TT, PT #### [facility] [address] [address] [address] Todd Moreno MONO # 0.2 103/ul Critically low 0.3-0.8 [facility] Comment on above: Performed By: #### P TT, PT #### [facility] [address] [place] [address] Dr. Todd Moreno Monocytes/100 WBC (Bld) 3.5 % Normal 1.7-12.0 [facility] Comment on above: Performed By: #### P TT, PT #### [facility] [address] [place] [address] Dr. Todd Moreno NEUT # 4.0 103/ul Normal 1.4-6.5 [facility] Comment on above: Performed By: #### P TT, PT #### [facility] [address] [place] [address] Dr. Todd Moreno Neutrophils/100 WBC (Bld) 60.5 % Normal 43.0-75.0 [facility] Comment on above: Performed By: #### P TT, PT #### [facility] [address] [place] [address] Dr. Todd Moreno Platelet mean volume (Bld) [Entitic vol] 10.6 fL Normal 9.5-13.5 [facility] Comment on above: Performed By: #### P TT, PT #### [facility] [address] [place] [address] Dr. Todd Moreno PLT 263 103/ul Normal 150-450 [facility] Comment on above: Performed By: #### P TT, PT #### [facility] [address] [place] [address] Dr. Todd Moreno RBC 4.41 106/ul Normal 4.20-5.40 [facility] Comment on above: Performed By: #### P TT, PT #### [facility] [address] [place] [address] Dr. Todd Moreno WBC 6.6 103/ul Normal 4.0-11.0 [facility] Comment on above: Performed By: #### P TT, PT #### [facility] [address] [place] [address] Dr. Todd Moreno FREE T4on 10-15-2021 Free T4 [Mass/Vol] 1.05 ng/dL Normal 0.76-1.46 [facility] Comment on above: Performed By: #### P TT, PT #### [facility] [address] [place] [address] Dr. Todd Moreno PROTIMEon 10-15-2021 INR Coag (PPP) [Relative time] 1.02 {INR} Normal [facility] Comment on above: Performed By: #### P TT, PT #### [facility] [address] [place] [address] Dr. Todd Moreno INR GUIDELINES SEE BELOW Normal [facility] Comment on above: Result Comment: RAMÓN RED INR: 2.0 - 3.0 CONDITIONS NOT LISTED BELOW 2.5 - 3.5 FOR PROSTHETIC HEART VALVE REPLACEMENT 2.5 - 3.5 RECURRENT THROMBOSIS Performed By: #### P TT, PT #### [facility] [address] [place] [address] Dr. Todd Moreno PT Coag (PPP) [Time] 11.0 s Normal 9.0-11.6 [facility] Comment on above: Performed By: #### P TT, PT #### [facility] [address] [place] [address] Dr. Todd Moreno PTTon 10-15-2021 aPTT Coag (Bld) [Time] 32.4 s Normal 22.3-36.2 [facility] Comment on above: Performed By: #### P TT, PT #### [facility] [address] [place] [address] Dr. Todd Moreno TSHon 10-15-2021 TSH 1.777 uIU/mL Normal 0.358-3.740 [facility] Comment on above: Performed By: #### P TT, PT #### [facility] [address] [place] [address] Dr. Todd Moreno PAP ACOG PANEL 2: 30 to 65on 10-10-2021 . . Normal [facility] Comment on above: Result Comment: Perf ormed at: WB Performed By: #### [id number] #### [facility] [address] [place] [address] Dr. Todd Moreno Age Gdln ACOG Testing 30-65 [facility] Comment on above: Performed By: #### [id number] #### [facility] [address] [address] [address] Todd Moreno DIAGNOSIS: Comment Normal [facility] Comment on above: Result Comment: NEGA TIVE FOR INTRAEPITHELIAL LESION OR MALIGNANCY. Performed at: WB Performed By: #### [id number] #### [facility] [address] [address] [address] Todd Moreno HPV Aptima Negative Normal Negative [facility] Comment on above: Result Comment: This nucleic acid amplification test detects fourteen high-risk HPV types (16,18,31,33,35,39,45,51,52,56,58,59,66,68) without differentiation. Performed at: =G Performed By: #### [id number] #### [facility] [address] [address] [address] Todd Moreno Methodology: Comment Normal [facility] Comment on above: Result Comment: This liquid based ThinPrep(R) pap test was screened with the use of an image guided system. Performed at: WB Performed By: #### [id number] #### [facility] [address] [address] [address] Todd Moreno Note: Comment Normal [facility] Comment on above: Result Comment: The Pap smear is a screening test designed to aid in the detection of premalignant and malignant conditions of the uterine cervix. It is not a diagnostic procedure and should not be used as the sole means of detecting cervical cancer. Both false-positive and false-negative reports do occur. . Performed at: WB Performed By: #### [id number] #### [facility] [address] [address] [address] Todd Moreno Performed by: Comment Normal [facility] Comment on above: Result Comment: Magalie Lemus Route Sales Driver (ASCP) Performed at: WB Performed By: #### [id number] #### [facility] [address] [address] [address] Todd Moreno Specimen adequacy: Comment Normal [facility] Comment on above: Result Comment: Sati sfactory for evaluation. Endocervical and/or squamous metaplastic cells (endocervical component) are present. Performed at: WB Performed By: #### [id number] #### [facility] [address] [place] [address] Dr. Todd Moreno COVID-19 Antigenon 2 COVID-19 [...] its performance Corinne Disclaimer characteristic determined by [employer] and Corinne Disclaimer validated at [facility]. This Corinne Disclaimer test has not [...] is terminated or revoked sooner. PERFORMED BY: [place] [address] PATHOLOGIST EMPLOYEE RELATION MANAGER JONATHAN SHEPARD M.D. Normal [facility] Comment on above: Performed By: #### S OFIANEG, COVID-19 CORINNE #### [facility] [address] [place] [address] HCG,Urineon 03-30-2021 Beta HCG ( test) Ql (U) Negative Normal [facility] Comment on above: Result Comment: PERF ORMED BY: [place] [address] PATHOLOGIST EMPLOYEE RELATION MANAGER JONATHAN SHEPARD M.D. Performed By: #### U HCG #### [facility] [address] [place] [address] Corinne Ag Negativeon 03-30-19 Corinne Ag Negative Negative Normal Negative [facility] Comment on above: Result Comment: This is a duplicate Corinne SARS Antigen (KAEL) result to be used for statistical tracking purpose only. PERFORMED BY: [place] [address] PATHOLOGIST EMPLOYEE RELATION MANAGER JONATHAN SHEPARD M.D. Performed By: #### S OFIANEG, COVID-19 CORINNE #### [facility] [address] [place] [address] COVID-19 [facility] [place] SARS-CoV-2 (COVID-19) RNA JESE+probe Ql (Unsp spec) Negative Normal Negative [facility] Comment on above: Order Comment: Healt hcare Worker?: N Result Comment: Testing for SARS-CoV-2 by RT-PCR This test was developed and its performance characteristics determined by [employer]) and validated at the [facility]. This test has not been FDA [...] is terminated or revoked sooner. PERFORMED BY: [place] [address] PATHOLOGIST EMPLOYEE RELATION MANAGER JONATHAN SHEPARD M.D. Performed By: #### C OVID 19 [facility] #### [place] [id number] [facility] XR elbow LT 2Von 03-01-2021 XR elbow LT 2V [facility] [place] [address] [place] [address] XRay Report Signed Patient: Danyell Almaguer MR#: [id number] : 1985 Acct:[id number] Age/Sex: 35 / F ADM Date: 03/01/21 [place]: [facility] Room: Type: [facility] Attending Dr: Leandro Robles MD Ordering [...] Valdez Mcwilliams M.D.03/01/2021 1:47 PM Dictation Location: [place] [address] Transcribed By: [facility] 03/01/21 1347 Dictated By: Valdez Mcwilliams DO 03/01/21 1344 Signed By: 03/01/21 1347 [facility] XR FOREARM LEFT 2 VIEWSon XR FOREARM [...] are recommended in 7 to 10 days. [facility]/CM Sistemi Workstation ID: [id number] Dictated by: MAR DAWSON on SunSep 08, 2020 11:41:42 PM EDT Transcribed by: SHERRLIL SMYTH on SunSep 09, 2020 12:10:05 AM EDT Finalized by: MAR DAWSON on SunSep 09, 2020 12:16:[address] [facility] Comment on above: Order Comment: Injur [...] 08, 2020 11:42:[address] [facility] Comment on above: Order Comment: Injur y/Trauma or Illness?:Injury/Trauma How long have you had these symptoms (acute/chronic)?:Acute Reason for exam?:fall, pain to left shoulder radiating down arm History of cancer?:no Surgeries, chemotherapy, or radiation?:no Type of Exam?:Initial Mechanism of injury?:fall Vital Signs Date Time Vital Sign Value Performing Clinician Erik wilson 03-01-2021 11:00-0500 Body height 170.18 cm Leandro Robles Other [facility] 03-01-2021 11:00-0500 Body mass index (BMI) [Ratio] 30.07 kg/m2 Leandro Travis Other [facility] 03-01-2021 11:00-0500 Body weight 87.09 kg Leandro Robles Other [facility] Other Encounters Encounter Date Encounter Type Care [...] 03-01-2021 End: 03-01-2021 ambulatory Leandro Robles Other [facility] Start: 03-01-2021 Encounter for other preprocedural examination Leandro Robles [facility] Start: 03-01-2021 Office outpatient ne w 45 minutes Leandro Robles [facility] Start: 09-09-2020 End: 09-09-2020 [facility] Date Payer Category Payer Private Health Insurance [id number] 2019 Unknown [id number] 1985 Unknown [id number] 2.16. [id number] 1985 Unknown [id number] 2.16.84 [id number] 1985 Unknown [id number] 2.16.84 [id number] 1985 Unknown [id number] 2.16.84 [id number] 1985 Unknown [id number] 2.16.84 [id number] 1986 Unknown [id number] 2.16.84 [id number] 1986 Unknown [id number] 2.16.84 0.1.646919.3.579.2.593 1985 Unknown [id number] 2.16.84 0.1.683726.3.579.2.1259 1986 Unknown [id number] 2.16.840 .[id number] 1986 Unknown [id number] 2.16.840 .[id number] 1959 Self-pay 1959 Unknown [id number] 1959 Unknown [id number] 1959 Unknown [id number] Unknown [id number] .16.84 [id number] Social History Date Type Detail Facility Sex Assigned At [facility] Other Evaluation note 03-01-2021 Note Date & Type Note Facility 03-01-2021 Evaluation note Encounter Date Diagnosis Assessment Notes Feb, Closed fracture of capitellum of left humerus with routine healing (ICD-10 - S42.452D) MRI reviewed with patient as healing fractures within the elbow. 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 Instructed [...] M24.022) Feb, Pre-op exam (ICD-10 - Z01.818) [facility] Other History general Narrative - Reported Note Date & Type Note Facility History general Narrative - Reported Type Medical History ADHD [facility] Other Summary Purpose Family History No Family History Records FoundNo Family History Records FoundNo Family History Records FoundNo Family History Records Found Advance Directives No Advanced Directives Records FoundNo Advanced Directives Records FoundNo Advanced Directives Records FoundNo Advanced Directives Records Found Additional Source Comments INFORMATION SOURCE (unrecogn ized section and content) DATE CREATED AUTHOR 09/14/2020 [facility] DATE CREATED AUTHOR AUTHOR'S ORGANIZ ATION 10/06/2021 [facility] DATE CREATED AUTHOR AUTHOR'S ORGANIZ ATION 06/08/2022 [facility] DATE CREATED AUTHOR AUTHOR'S ORGANIZ ATION 05/21/2023 [facility] EPIC REASON FOR VISIT [...] BE BASED ON THE PRIMARY CLINICAL RECORDS. [facility]. provides no warranty or guarantee of the accuracy or completeness of information in this document.
[2023-07-02 12:05] LABS: HCG Quantitative 6 mIU/mL
== END 2023-07-02 11:01 | disposition home or self-care (01) ==
LOC: LAB 11:01
PROVIDERS: Visit Provider Obstetrics & Gynecology
DX: Z32.01 Encounter for pregnancy test, result positive (principal); Z87.59 Personal history of other complications of pregnancy, childbirth and the puerperium
CPT/HCPCS: 36415; 84702

== ENCOUNTER 2023-09-26 14:11 | Outpatient (OUT) | payer OTHER, SELFPAY ==
--- NOTE | 2023-09-26 14:13 | US_ITS ---
[place] [id number] Patient Name: DANYELL ROSENBERG MRN: [id number] date: 1985 Sex: F Assigned Patient Location: US Current Patient Location: Accession/Order Number: [id number] Exam Date: 09/26/2023 15:00 Report Date: 09/27/2023 07:14 At the request of: ROGERS HODGE Procedure: US OB transvaginal EXAMINATION: US OB transvaginal HISTORY: Pelvic Pain R10.2 COMPARISON: No relevant comparison available. FINDINGS: Tinoco intrauterine gestation Gestational sac: 3.3 cm, 8 weeks 2 days CRL: 1.73 cm, 30 weeks 1 day Yolk sac: 2.1 mm Heart rate: 167 bpm Cervix: Closed, 4.3 cm The uterus is normal, anteverted The right ovary is normal. The left ovary contains a 3 cm cystic lesion likely corpus luteal cyst Clinical age: 8 weeks 4 days Clinical MIL: 05/03/2024 Ultrasound age: 8 weeks 1 day Ultrasound MIL: 05/06/2024 US/US OB transvaginal IMPRESSION: Viable tinoco intrauterine gestation measuring 8 weeks 1 day Electronically authenticated by: CARIDAD DOBSON Date: 09/27/2023 07:14
== END 2023-09-26 14:12 | disposition home or self-care (01) ==
LOC: US 14:11
PROVIDERS: Visit Provider Obstetrics & Gynecology
DX: O26.891 Other specified pregnancy related conditions, first trimester (principal); R10.2 Pelvic and perineal pain; Z3A.08 8 weeks gestation of pregnancy
CPT/HCPCS: 76817

== ENCOUNTER 2023-10-18 13:07 | Outpatient (OUT) | payer OTHER, SELFPAY ==
--- NOTE | 2023-10-18 13:09 | US_ITS ---
[address] [address] Patient Name: DANEYLL ROSENBERG MRN: [id number] date: 1985 Sex: F Assigned Patient Location: [facility] Current Patient Location: [facility] Accession/Order Number: [id number] Exam Date: 10/18/2023 13:09 Report Date: 10/18/2023 15:01 At the request of: ROGERS HODGE Procedure: US OB transvaginal EXAMINATION: US OB transvaginal HISTORY: MISSED MENSES COMPARISON: No relevant comparison available. FINDINGS: GESTATIONAL SAC: Present and normal appearing. YOLK SAC: Present and normal appearing. POLE: Present and normal appearing. CARDIAC: Present. UTERUS: Normal size and appearance. OVARIES: Right: Normal. Left: Corpus lutein cyst. CERVIX: 3.9 cm in length and closed. CUL-DE-SAC: Normal. OTHER: None. AGE BY LMP: 11 weeks 5 days MIL BY LMP: 05/03/2024 AGE BY US CRL: 11 weeks 5 days MIL BY US CRL: 05/03/2024 US/US OB transvaginal IMPRESSION: 1. Single live intrauterine . Electronically authenticated by: HALEY RABAGO Date: 10/18/2023 15:01
== END 2023-10-18 13:08 | disposition home or self-care (01) ==
LOC: NOMS 13:07
PROVIDERS: Visit Provider Obstetrics & Gynecology
DX: Z34.91 Encounter for supervision of normal pregnancy, unspecified, first trimester (principal); Z3A.11 11 weeks gestation of pregnancy; N92.6 Irregular menstruation, unspecified
CPT/HCPCS: 76817

== ENCOUNTER 2023-11-07 14:02 | Outpatient (OUT) | payer OTHER, SELFPAY ==
[2023-11-07 14:41] LABS: Basophils Percent Auto 0.4 % (0.2-2.0); Eosinophils Absolute Auto 0.3 10^3/uL (0.0-0.7); Hematocrit 36.3 % (36.0-48.0); Hemoglobin 11.4 g/dL (12.0-16.0); Immature Granulocytes Abs Auto 0.03 10^3/uL (0.00-0.03); Immature Granulocytes Pct Auto 0.3 % (0.0-0.5); Lymphocytes Absolute Auto 2.2 10^3/uL (1.2-3.8); Lymphocytes Percent Auto 23.6 % (20.5-60.0); Mean Corpuscular HGB Conc 31.4 g/dL (29.9-35.2); Mean Corpuscular Volume 82.9 fL (81.0-99.0); Monocytes Absolute Auto 0.5 10^3/uL (0.3-0.8); Monocytes Percent Auto 5.1 % (1.7-12.0); Neutrophils Absolute Auto 6.2 10^3/uL (1.4-6.5); Neutrophils Percent Auto 67.6 % (43.0-75.0); Platelet Count 271 10^3/uL (150-450); Red Blood Count 4.38 10^6/uL (4.20-5.40); Red Cell Distribution Width 16.1 % (11.0-15.0); White Blood Count 9.2 10^3/uL (4.0-11.0)
[2023-11-07 14:49] LABS: Estimated Average Glucose 100 mg/dL; Glycohemoglobin A1C 5.1 % (4.5-6.2)
[2023-11-08 05:07] LABS: HCV Ab Non Reactive (Non Reactive); HIV Ab/p24 Ag Screen Non Reactive (Non Reactive); Rubella Antibodies, IgG 6.43 index (Immune >0.99)
[2023-11-08 06:10] LABS: HBsAg Screen Negative (Negative)
[2023-11-08 12:10] LABS: Rapid Plasma Reagin, Quant Non Reactive titer (NonRea<1:1)
== END 2023-11-07 14:03 | disposition home or self-care (01) ==
LOC: LAB 14:03
PROVIDERS: Visit Provider Physician Assistant
DX: N92.6 Irregular menstruation, unspecified (principal)
CPT/HCPCS: 36415; 83036; 85025; 86592; 86762; 86803; 86850; 86900; 86901; 87086; 87340; 87389

== ENCOUNTER 2023-12-17 07:57 | Outpatient (OUT) | payer OTHER, SELFPAY ==
--- NOTE | 2023-12-17 07:59 | US_ITS ---
[address] [address] Patient Name: DANYELL ROSENBERG MRN: [id number] date: 1985 Sex: F Assigned Patient Location: [facility] Current Patient Location: [facility] Accession/Order Number: [id number] Exam Date: 12/17/2023 08:00 Report Date: 12/17/2023 08:59 At the request of: SHARLA HOOD Procedure: US OB anatomy EXAMINATION: US OB anatomy, US OB cervical length HISTORY: anatomic screening COMPARISON: Ultrasound OB transvaginal 10/18/2023 TECHNIQUE: Transabdominal sonographic examination was performed for obstetrical and evaluation. FINDINGS: Number: 1 Heart Rate: 144 bpm H.B. /min Amniotic Fluid Volume: Subjectively normal Placental Location: Anterior with lower margin 7.3 cm from os. Cervix Length: 3.7 cm; closed. ANATOMY: Normal Structures -cerebellum, choroid plexus, cisterna magna, lateral cerebral ventricles, orbits, midline falx, hard palate, four-chamber heart, RVOT, LVOT, stomach, kidneys, bladder, umbilical cord insertion into abdomen, three-vessel cord, cervical spine, thoracic spine, lumbar spine, sacral spine, right upper extremity, left upper extremity, right lower extremity, left lower extremity. SUBOPTIMALLY SEEN: None ABNORMALITIES: None BIOMETRY: BPD: 4.70 cm; 20 weeks 1 day; 46.30 % HC: 17.46 cm; 20 weeks 0 days; 28.10 % AC: 16.06 cm; 21 weeks 1 day; 72.70 % FL: 3.35 cm; 20 weeks 3 days; 49.60 % EFW:371.56 g; 71.50 % FL/AC: 20.86 FL/BPD: 71.28 HC/AC: 1.09 GESTATIONAL AGE: Age by EDC: 20 weeks 2 days Age by current US : 20 weeks 3 days MIL by current US: 2024-05-02 MIL by EDC: 2024-05-03 US/US OB anatomy IMPRESSION: 1. Single live intrauterine with growth detailed above. Electronically authenticated by: HALEY RABAGO Date: 12/17/2023 08:59
--- NOTE | 2023-12-17 07:59 | US_ITS ---
[address] [address] Patient Name: DANYELL ROSENBERG MRN: [id number] date: 1985 Sex: F Assigned Patient Location: [facility] Current Patient Location: [facility] Accession/Order Number: [id number] Exam Date: 12/17/2023 08:00 Report Date: 12/17/2023 08:59 At the request of: SHARLA HOOD Procedure: US OB cervical length EXAMINATION: US OB anatomy, US OB cervical length HISTORY: anatomic screening COMPARISON: Ultrasound OB transvaginal 10/18/2023 TECHNIQUE: Transabdominal sonographic examination was performed for obstetrical and evaluation. FINDINGS: Number: 1 Heart Rate: 144 bpm H.B. /min Amniotic Fluid Volume: Subjectively normal Placental Location: Anterior with lower margin 7.3 cm from os. Cervix Length: 3.7 cm; closed. ANATOMY: Normal Structures -cerebellum, choroid plexus, cisterna magna, lateral cerebral ventricles, orbits, midline falx, hard palate, four-chamber heart, RVOT, LVOT, stomach, kidneys, bladder, umbilical cord insertion into abdomen, three-vessel cord, cervical spine, thoracic spine, lumbar spine, sacral spine, right upper extremity, left upper extremity, right lower extremity, left lower extremity. SUBOPTIMALLY SEEN: None ABNORMALITIES: None BIOMETRY: BPD: 4.70 cm; 20 weeks 1 day; 46.30 % HC: 17.46 cm; 20 weeks 0 days; 28.10 % AC: 16.06 cm; 21 weeks 1 day; 72.70 % FL: 3.35 cm; 20 weeks 3 days; 49.60 % EFW:371.56 g; 71.50 % FL/AC: 20.86 FL/BPD: 71.28 HC/AC: 1.09 GESTATIONAL AGE: Age by EDC: 20 weeks 2 days Age by current US : 20 weeks 3 days MIL by current US: 2024-05-02 MIL by EDC: 2024-05-03 US/US OB cervical length IMPRESSION: 1. Single live intrauterine with growth detailed above. Electronically authenticated by: HALEY RABAGO Date: 12/17/2023 08:59
--- OUTSIDE RECORDS SUMMARY | 2023-12-17 08:01 | XMS_ITS | CCD ---
Author Organization [facility] Care Team Providers Care Dining Host Name Role Phone HUBER LUNDBERGDIJA Attending Unavailable [...] Unavailable AYESHA ., DR MCCLOUD Admitting Unavailable RUSSELL, DR CARIDAD Martin [employer] Unavailable AYESHA ., [...] Chlamydia trachomatis, JESE Negative Normal Negative [facility] Comment on above: Performed By: #### P TT, PT #### [facility] [address] [address] [address] Todd Moreno Neisseria gonorrhoeae, JESE Negative Normal Negative [facility] Comment on above: Performed By: #### P TT, PT #### [facility] [address] [address] [address] Todd Moreno VAGINITIS/VAGINOSIS DNA PROB Shaheed 06-01-2022 Tatyana species Negative Normal Negative [facility] Comment on above: Performed By: #### P TT, PT #### [facility] [address] [address] [address] Todd Moreno Gardnerella vaginalis Negative Normal Negative [facility] Comment on above: Performed By: #### P TT, PT #### [facility] [address] [address] [address] Todd Moreno Trichomonas vaginalis Negative Normal Negative [facility] Comment on above: Performed By: #### P TT, PT #### [facility] [address] [address] [address] Todd Moreno HEP B SURFACE ANTIGEN SCREEN on 03-22-2022 HBsAg Screen Negative Normal Negative [facility] Comment on above: Performed By: #### H BSANS #### [facility] [address] [place] [address] Dr. Todd Moreno HEPATITIS C VIRUS AB W/ REFL EX QUANTon 03-22-2022 HCV AB 0.1 s/co ratio Normal 0.0-0.9 [facility] Comment on above: Performed By: #### P TT, PT #### [facility] [address] [place] [address] Dr. Todd Moreno Interpretation: Comment Normal [facility] Comment on above: Result Comment: Nega tive Not infected with HCV, unless recent infection is suspected or other evidence exists to indicate HCV infection. Performed By: #### P TT, PT #### [facility] [address] [place] [address] Dr. Todd Moreno HIV 1 AND 2 WITH REFLEXon HIV Screen 4th Generation wRfx Non-Reactive Normal Non Reactive [facility] Comment on above: Result Comment: HIV Negative HIV-1/HIV-2 antibodies and HIV-1 p24 antigen were NOT detected. There is no laboratory evidence of HIV infection. Performed By: #### H IV12 #### [facility] [address] [place] [address] Dr. Todd Moreno RPR QUANTon 03-22-2022 Rapid Plasma Reagin, Quant Non-Reactive Normal NonRea<1:[address] [facility] Comment on above: Result Comment: Plea se Note: This test does not meet current guidelines for screening and diagnosis of syphilis. This test is intended for following treatment response in patients being treated for syphilis infection. To screen for syphilis infection, a reflex cascade that includes both RPR and a treponema-specific assay should be utilized, such as Treponema pallidum (Syphilis) Screening [place] (492241) or Rapid Plasma Reagin (RPR) Test With Reflex to Quantitative RPR and Confirmatory Treponema pallidum Antibodies (586629). Performed By: #### R PRQ #### [facility] [address] [place] [address] Dr. Todd Moreno RUBELLA AB IGGon 03-22-2022 Rubella Antibodies, IgG 5.11 index Normal Immune >0.99 [facility] Comment on above: Result Comment: Non- immune <0.90 Equivocal 0.90 - 0.99 Immune >0.99 Performed By: #### R PRQ #### [facility] [address] [place] [address] Dr. Todd Moreno CBC AUTO DIFFon 03-20-2022 BASO # 0.0 103/ul Normal 0.0-0.1 [facility] Comment on above: Performed By: #### P TT, PT #### [facility] [address] [place] [address] Dr. Todd Moreno Basophils/100 WBC (Bld) 0.3 % Normal 0.2-2.0 [facility] Comment on above: Performed By: #### P TT, PT #### [facility] [address] [place] [address] Dr. Todd Moreno EO # 0.1 103/ul Normal 0.0-0.[address] [facility] Comment on above: Performed By: #### P TT, PT #### [facility] [address] [place] [address] Dr. Todd Moreno Eosinophils/100 WBC (Bld) 1.0 % Normal 0.9-7.0 [facility] Comment on above: Performed By: #### P TT, PT #### [facility] [address] [place] [address] Dr. Todd Moreno Erythrocyte distribution width (RBC) [Ratio] 14.4 % Normal 11.0-15.0 [facility] Comment on above: Performed By: #### P TT, PT #### [facility] [address] [place] [address] Dr. Todd Moreno Hematocrit (Bld) [Volume fraction] 38.2 % Normal 36.0-48.0 [facility] Comment on above: Performed By: #### P TT, PT #### [facility] [address] [place] [address] Dr. Todd Moreno Hemoglobin (Bld) [Mass/Vol] 12.2 g/dL Normal 12.0-16.0 [facility] Comment on above: Performed By: #### P TT, PT #### [facility] [address] [place] [address] Dr. Todd Moreno IG # 0.03 10e3/ul Normal 0.00-0.03 [facility] Comment on above: Performed By: #### P TT, PT #### [facility] [address] [place] [address] Dr. Todd Moreno IG % 0.3 % Normal 0.0-0.5 [facility] Comment on above: Performed By: #### P TT, PT #### [facility] [address] [place] [address] Dr. Todd Moreno LYMPH # 1.9 103/ul Normal 1.2-3.8 [facility] Comment on above: Performed By: #### P TT, PT #### [facility] [address] [place] [address] Dr. Todd Moreno Lymphocytes/100 WBC (Bld) 19.0 % Critically low 20.5-60.0 [facility] Comment on above: Performed By: #### P TT, PT #### [facility] [address] [place] [address] Dr. Todd Moreno MANUAL DIFF REQ NO Normal [facility] Comment on above: Performed By: #### P TT, PT #### [facility] [address] [place] [address] Dr. Todd Moreno MCH (RBC) [Entitic mass] 26.1 pg Critically low 26.7-34.[address] [facility] Comment on above: Performed By: #### P TT, PT #### [facility] [address] [place] [address] Dr. Todd Moreno MCHC (RBC) [Mass/Vol] 31.9 g/dL Normal 29.9-35.[address] [facility] Comment on above: Performed By: #### P TT, PT #### [facility] [address] [place] [address] Dr. Todd Moreno MCV (RBC) [Entitic vol] 81.6 fL Normal 81.0-99.[address] [facility] Comment on above: Performed By: #### P TT, PT #### [facility] [address] [place] [address] Dr. Todd Moreno MONO # 0.4 103/ul Normal 0.3-0.[address] [facility] Comment on above: Performed By: #### P TT, PT #### [facility] [address] [place] [address] Dr. Todd Moreno Monocytes/100 WBC (Bld) 4.4 % Normal 1.7-12.[address] [facility] Comment on above: Performed By: #### P TT, PT #### [facility] [address] [place] [address] Dr. Todd Moreno NEUT # 7.5 103/ul Critically high 1.4-6.5 [facility] Comment on above: Performed By: #### P TT, PT #### [facility] [address] [place] [address] Dr. Todd Moreno Neutrophils/100 WBC (Bld) 75.0 % Normal 43.0-75.[address] [facility] Comment on above: Performed By: #### P TT, PT #### [facility] [address] [place] [address] Dr. Todd Moreno Platelet mean volume (Bld) [Entitic vol] 10.4 fL Normal 9.5-13.[address] [facility] Comment on above: Performed By: #### P TT, PT #### [facility] [address] [place] [address] Dr. Todd Moreno PLT 302 103/ul Normal 150-[address] [facility] Comment on above: Performed By: #### P TT, PT #### [facility] [address] [place] [address] Dr. Todd Moreno RBC 4.68 106/ul Normal 4.20-5.40 [facility] Comment on above: Performed By: #### P TT, PT #### [facility] [address] [place] [address] Dr. Todd Moreno WBC 10.1 103/ul Normal 4.0-11.0 [facility] Comment on above: Performed By: #### P TT, PT #### [facility] [address] [place] [address] Dr. Todd Moreno CULTURE URINEon 03-20-2022 CULTURE URINE Culture Observations : MODERATE GROWTH OF MIXED GENITAL LORA. NO POTENTIAL PATHOGENS SEEN. Normal [facility] Comment on above: Performed By: #### P TT, PT #### [facility] [address] [place] [address] Dr. Todd Moreno GLYCOHEMOGLOBIN A1Con 2022 ADA RECOMMENDATION SEE BELOW Normal [facility] Comment on above: Result Comment: ADA RECOMMENDED LIMIT 4.0 - 6.0 ADA THERAPEUTIC TARGET < 7.0 ACTION SUGGESTED > 7.0 Performed By: #### A 1C #### [facility] [address] [place] [address] Dr. Todd Moreno Glucose [Mass/Vol] 105 mg/dL Normal [facility] Comment on above: Performed By: #### A 1C #### [facility] [address] [place] [address] Dr. Todd Moreno HbA1c (Bld) [Mass fraction] 5.3 % Normal 4.5-6.2 [facility] Comment on above: Performed By: #### A 1C #### [facility] [address] [place] [address] Dr. Todd Moreno BENJAMIN BOX TEST PT SEND OUTo n 03-20-2022 SENT TO REF LAB 03/20/2022 Normal [facility] Comment on above: Performed By: #### P TT, PT #### [facility] [address] [place], [place] [address] Dr. Todd Moreno TYPE AND SCREENon 03-20-2022 TYPE AND SCREEN Negative Normal [facility] Comment on above: Performed By: #### P TT, PT #### [facility] [address] [place], [place] [address] Dr. Todd Moreno US PREG TVon 02-24-2022 [...] by: CARIDAD DOBSON Date: 2022-02-24 16:16 Normal [facility] CULTURE URINEon 02-03-2022 CULTURE [...] F Oxacillin 0.5 S F Normal [facility] Comment on above: Performed By: #### P TT, PT #### [facility] [address] [address] [address] Todd Moreno US PREG TVon 02-01-2022 [...] ETHAN MERCER Date: 2022-01-31 22:05 Normal [facility] CBC AUTO DIFFon 01-31-2022 BASO # 0.1 103/ul Normal 0.0-0.[address] [facility] Comment on above: Performed By: #### P TT, PT #### [facility] [address] [address] [address] Todd Moreno Basophils/100 WBC (Bld) 0.8 % Normal 0.2-2.[address] [facility] Comment on above: Performed By: #### P TT, PT #### [facility] [address] [place], [place] [address] Dr. Todd Moreno EO # 0.5 103/ul Normal 0.0-0.[address] [facility] Comment on above: Performed By: #### P TT, PT #### [facility] [address] [place] [address] Dr. Todd Moreno Eosinophils/100 WBC (Bld) 5.4 % Normal 0.9-7.0 [facility] Comment on above: Performed By: #### P TT, PT #### [facility] [address] [place] [address] Dr. Todd Moreno Erythrocyte distribution width (RBC) [Ratio] 15.0 % Normal 11.0-15.0 [facility] Comment on above: Performed By: #### P TT, PT #### [facility] [address] [place] [address] Dr. Todd Moreno Hematocrit (Bld) [Volume fraction] 34.3 % Critically low 36.0-48.0 [facility] Comment on above: Performed By: #### P TT, PT #### [facility] [address] [place] [address] Dr. Todd Moreno Hemoglobin (Bld) [Mass/Vol] 11.2 g/dL Critically low 12.0-16.0 [facility] Comment on above: Performed By: #### P TT, PT #### [facility] [address] [place] [address] Dr. Todd Moreno IG # 0.02 10e3/ul Normal 0.00-0.03 [facility] Comment on above: Performed By: #### P TT, PT #### [facility] [address] [place] [address] Dr. Todd Moreno IG % 0.2 % Normal 0.0-0.[address] [facility] Comment on above: Performed By: #### P TT, PT #### [facility] [address] [place] [address] Dr. Todd Moreno LYMPH # 2.7 103/ul Normal 1.2-3.[address] [facility] Comment on above: Performed By: #### P TT, PT #### [facility] [address] [place] [address] Dr. Todd Moreno Lymphocytes/100 WBC (Bld) 29.9 % Normal 20.5-60.0 [facility] Comment on above: Performed By: #### P TT, PT #### [facility] [address] [place] [address] Dr. Todd Moreno MANUAL DIFF REQ NO Normal [facility] Comment on above: Performed By: #### P TT, PT #### [facility] [address] [place] [address] Dr. Todd Moreno MCH (RBC) [Entitic mass] 26.7 pg Normal 26.7-34.0 [facility] Comment on above: Performed By: #### P TT, PT #### [facility] [address] [place] [address] Dr. Todd Moreno MCHC (RBC) [Mass/Vol] 32.7 g/dL Normal 29.9-35.2 [facility] Comment on above: Performed By: #### P TT, PT #### [facility] [address] [place] [address] Dr. Todd Moreno MCV (RBC) [Entitic vol] 81.7 fL Normal 81.0-99.0 [facility] Comment on above: Performed By: #### P TT, PT #### [facility] [address] [place] [address] Dr. Todd Moreno MONO # 0.5 103/ul Normal 0.3-0.8 [facility] Comment on above: Performed By: #### P TT, PT #### [facility] [address] [place] [address] Dr. Todd Moreno Monocytes/100 WBC (Bld) 5.7 % Normal 1.7-12.0 [facility] Comment on above: Performed By: #### P TT, PT #### [facility] [address] [place] [address] Dr. Todd Moreno NEUT # 5.2 103/ul Normal 1.4-6.5 [facility] Comment on above: Performed By: #### P TT, PT #### [facility] [address] [place] [address] Dr. Todd Moreno Neutrophils/100 WBC (Bld) 58.0 % Normal 43.0-75.0 [facility] Comment on above: Performed By: #### P TT, PT #### [facility] [address] [place] [address] Dr. Todd Moreno Platelet mean volume (Bld) [Entitic vol] 10.4 fL Normal 9.5-13.5 [facility] Comment on above: Performed By: #### P TT, PT #### [facility] [address] [place] [address] Dr. Todd Moreno PLT 270 103/ul Normal 150-450 [facility] Comment on above: Performed By: #### P TT, PT #### [facility] [address] [place] [address] Dr. Todd Moreno RBC 4.20 106/ul Normal 4.20-5.40 [facility] Comment on above: Performed By: #### P TT, PT #### [facility] [address] [place] [address] Dr. Todd Moreno WBC 9.1 103/ul Normal 4.0-11.0 [facility] Comment on above: Performed By: #### P TT, PT #### [facility] [address] [place] [address] Dr. Todd Moreno ER URINE PROFILEon 2 Bilirubin Ql (U) Negative Normal NEGATIVE [facility] Comment on above: Performed By: #### P TT, PT #### [facility] [address] [place] [address] Dr. Todd Moreno Clarity (U) CLEAR Normal CLEAR [facility] Comment on above: Performed By: #### P TT, PT #### [facility] [address] [place] [address] Dr. Todd Moreno Color (U) YELLOW Normal YELLOW [facility] Comment on above: Performed By: #### P TT, PT #### [facility] [address] [place] [address] Dr. Todd Moreno ERUAHD A micrscopic examination will be performed if indicated. Normal [facility] Comment on above: Performed By: #### P TT, PT #### [facility] [address] [address] [address] Todd Moreno Glucose Ql (U) Negative Normal NEGATIVE [facility] Comment on above: Performed By: #### P TT, PT #### [facility] [address] [place] [address] Dr. Todd Moreno Hemoglobin Ql (U) TRACE-INTACT Abnormal NEGATIVE [facility] Comment on above: Performed By: #### P TT, PT #### [facility] [address] [address] [address] Todd Moreno Ketones Ql (U) Negative Normal NEGATIVE [facility] Comment on above: Performed By: #### P TT, PT #### [facility] [address] [place] [address] Dr. Todd Moreno LEUKOCYTES SMALL Abnormal NEGATIVE [facility] Comment on above: Performed By: #### P TT, PT #### [facility] [address] [place] [address] Dr. Todd Moreno Nitrite Ql (U) Negative Normal NEGATIVE [facility] Comment on above: Performed By: #### P TT, PT #### [facility] [address] [place] [address] Dr. Todd Moreno pH (U) 6.5 [pH] Normal 5-9 [facility] Comment on above: Performed By: #### P TT, PT #### [facility] [address] [place] [address] Dr. Todd Moreno SPEC GRAVITY 1.015 Normal 1.005-<=1.025 [facility] Comment on above: Performed By: #### P TT, PT #### [facility] [address] [place] [address] Dr. Todd Moreno UA PROTEIN Negative Normal NEGATIVE/ TRACE [facility] Comment on above: Performed By: #### P TT, PT #### [facility] [address] [place] [address] Dr. Todd Moreno UR MICRO IND INDICATED Normal [facility] Comment on above: Performed By: #### P TT, PT #### [facility] [address] [place] [address] Dr. Todd Moreno Urobilinogen Qn (U) 0.2 {Tiffany'U}/dL Normal 0.2 - 1. 0 [facility] Comment on above: Performed By: #### P TT, PT #### [facility] [address] [place] [address] Dr. Todd Moreno LIPASEon 01-31-2022 Lipase [Catalytic activity/Vol] 123.0 U/L Normal 73.0-393.0 [facility] Comment on above: Performed By: #### C MP, LIPA #### [facility] [address] [place] [address] Dr. Todd Moreno PREG QUANT HCGon 01-31-2022 HCG QUANT 711 mIU/mL Normal [facility] Comment on above: Performed By: #### P TT, PT #### [facility] [address] [place] [address] Dr. Todd Moreno HCG RANGE SEE BELOW Normal [facility] Comment on above: Result Comment: 5-50 0.2-1 WEEK 50-500 1-2 WEEKS 100-5,000 2-3 WEEKS 500-10,000 3-4 WEEKS 1,000-50,000 4-5 WEEKS 10,000-100,000 5-6 WEEKS 15,000-200,000 6-8 WEEKS 10,000-100,000 2-3 MONTHS Performed By: #### P TT, PT #### [facility] [address] [place] [address] Dr. Todd Moreno PROF 14(COMP METB)on 022 Albumin [Mass/Vol] 3.7 g/dL Normal 3.4-5.0 [facility] Comment on above: Performed By: #### C MP, LIPA #### [facility] [address] [place] [address] Dr. Todd Moreno Albumin/Globulin [Mass ratio] 1.0 {ratio} Normal [facility] Comment on above: Performed By: #### C MP, LIPA #### [facility] [address] [place] [address] Dr. Todd Moreno ALP [Catalytic activity/Vol] 80 U/L Normal 46-116 [facility] Comment on above: Performed By: #### C MP, LIPA #### [facility] [address] [place] [address] Dr. Todd Moreno ALT [Catalytic activity/Vol] 23 U/L Normal 14-59 [facility] Comment on above: Performed By: #### C MP, LIPA #### [facility] [address] [place] [address] Dr. Todd Moreno Anion gap [Moles/Vol] 10.2 mmol/L Normal [facility] Comment on above: Performed By: #### C MP, LIPA #### [facility] [address] [place] [address] Dr. Todd Moreno AST [Catalytic activity/Vol] 14 U/L Critically low 15-37 [facility] Comment on above: Performed By: #### C MP, LIPA #### [facility] [address] [place] [address] Dr. Todd Moreno Bilirubin [Mass/Vol] 0.3 mg/dL Normal 0.2-1.0 [facility] Comment on above: Performed By: #### C MP, LIPA #### [facility] [address] [place] [address] Dr. Todd Moreno Calcium [Mass/Vol] 9.1 mg/dL Normal 8.5-10.1 [facility] Comment on above: Performed By: #### C MP, LIPA #### [facility] [address] [place] [address] Dr. Todd Moreno Chloride [Moles/Vol] 104 mmol/L Normal 98-[address] [facility] Comment on above: Performed By: #### C MP, LIPA #### [facility] [address] [place] [address] Dr. Todd Moreno CO2 [Moles/Vol] 26.8 mmol/L Normal 21.0-32.0 [facility] Comment on above: Performed By: #### C MP, LIPA #### [facility] [address] [place] [address] Dr. Todd Moreno Creatinine [Mass/Vol] 0.87 mg/dL Normal 0.55-1.[address] [facility] Comment on above: Performed By: #### C MP, LIPA #### [facility] [address] [place] [address] Dr. Todd Moreno EGFR-AF FILIPINO >60 Normal >=60 [facility] Comment on above: Performed By: #### C MP, LIPA #### [facility] [address] [place] [address] Dr. Todd Moreno EGFR-NON AF FILIPINO >60 Normal >=60 [facility] Comment on above: Performed By: #### C MP, LIPA #### [facility] [address] [place] [address] Dr. Todd Moreno Globulin (S) [Mass/Vol] 3.7 g/dL Normal [facility] Comment on above: Performed By: #### C MP, LIPA #### [facility] [address] [place] [address] Dr. Todd Moreno Glucose [Mass/Vol] 98 mg/dL Normal 74-106 [facility] Comment on above: Performed By: #### C MP, LIPA #### [facility] [address] [place] [address] Dr. Todd Moreno Potassium [Moles/Vol] 4.0 mmol/L Normal 3.5-5.[address] [facility] Comment on above: Performed By: #### C MP, LIPA #### [facility] [address] [place] [address] Dr. Todd Moreno Protein [Mass/Vol] 7.4 g/dL Normal 6.4-8.2 [facility] Comment on above: Performed By: #### C MP, LIPA #### [facility] [address] [place] [address] Dr. Todd Moreno Sodium [Moles/Vol] 137 mmol/L Normal 136-145 [facility] Comment on above: Performed By: #### C MP, LIPA #### [facility] [address] [place] [address] Dr. Todd Moreno Urea nitrogen [Mass/Vol] 15.0 mg/dL Normal 7.0-18.[address] [facility] Comment on above: Performed By: #### C MP, LIPA #### [facility] [address] [place] [address] Dr. Todd Moreno Urea nitrogen/Creatinine [Mass ratio] 17.2 mg/mg Normal [facility] Comment on above: Performed By: #### C MP, LIPA #### [facility] [address] [place] [address] Dr. Todd Moreno URINE MICROSCOPIC ONLYon BACTERIA SMALL Abnormal NONE SEEN [facility] Comment on above: Performed By: #### P TT, PT #### [facility] [address] [place] [address] Dr. Todd Moreno Bacteria identified Cx Nom (U) INDICATED Normal [facility] Comment on above: Performed By: #### P TT, PT #### [facility] [address] [place] [address] Dr. Todd Moreno CAST NONE SEEN Normal NONE SEEN [facility] Comment on above: Performed By: #### P TT, PT #### [facility] [address] [place] [address] Dr. Todd Moreno Crystals LM Nom (Urine sed) NONE SEEN Normal NONE SEEN [facility] Comment on above: Performed By: #### P TT, PT #### [facility] [address] [place] [address] Dr. Todd Moreno Epithelial cells LM Ql (Urine sed) FEW Abnormal NONE SEEN /RARE [facility] Comment on above: Performed By: #### P TT, PT #### [facility] [address] [place] [address] Dr. Todd Moreno MUCOUS NONE SEEN Normal NONE SEEN [facility] Comment on above: Performed By: #### P TT, PT #### [facility] [address] [place] [address] Dr. Todd Moreno RBC 0-2 Normal 0-[address] [facility] Comment on above: Performed By: #### P TT, PT #### [facility] [address] [address] [address] Todd Moreno WBC 10-20 Abnormal NONE SEEN [facility] Comment on above: Performed By: #### P TT, PT #### [facility] [address] [address] [address] Todd Moreno ESTROGENon 10-20-2021 Estrogens, Total 68 pg/mL Normal [facility] Comment on above: Result Comment: Prep ubertal < 40 Female Cycle: 1-10 Days 16 - 328 11-20 Days 34 - 501 21-30 Days 48 - 350 Post-Menopausal 40 - 244 Performed By: #### P TT, PT #### [facility] [address] [place] [address] Dr. Todd Moreno ESTRADIOLon 10-16-2021 Estradiol 62.1 pg/mL Normal [facility] Comment on above: Result Comment: Adul t Female: Follicular phase 12.5 - 166.0 Ovulation phase 85.8 - 498.0 Luteal phase 43.8 - 211.0 Postmenopausal <6.0 - 54.7 1st trimester 215.0 - >4300.0 Ramos ECLIA methodology Performed By: #### E STRADI #### [facility] [address] [place] [address] Dr. Todd Moreno FSHon 10-16-2021 FSH 5.6 mIU/mL Normal [facility] Comment on above: Result Comment: Adul t Female: Follicular phase 3.5 - 12.5 Ovulation phase 4.7 - 21.5 Luteal phase 1.7 - 7.7 Postmenopausal 25.8 - 134.8 Performed By: #### P TT, PT #### [facility] [address] [place] [address] Dr. Todd Moreno LUTEINIZING HORMONE (LH)on 0 10-16-2021 LH 12.1 mIU/mL Normal [facility] Comment on above: Result Comment: Adul t Female: Follicular phase 2.4 - 12.6 Ovulation phase 14.0 - 95.6 Luteal phase 1.0 - 11.4 Postmenopausal 7.7 - 58.5 Performed By: #### P TT, PT #### [facility] [address] [place] [address] Dr. Todd Moreno CBC AUTO DIFFon 10-15-2021 BASO # 0.0 103/ul Normal 0.0-0.1 [facility] Comment on above: Performed By: #### P TT, PT #### [facility] [address] [place] [address] Dr. Todd Moreno Basophils/100 WBC (Bld) 0.6 % Normal 0.2-2.0 [facility] Comment on above: Performed By: #### P TT, PT #### [facility] [address] [place] [address] Dr. Todd Moreno EO # 0.1 103/ul Normal 0.0-0.7 [facility] Comment on above: Performed By: #### P TT, PT #### [facility] [address] [place] [address] Dr. Todd Moreno Eosinophils/100 WBC (Bld) 2.1 % Normal 0.9-7.0 [facility] Comment on above: Performed By: #### P TT, PT #### [facility] [address] [place] [address] Dr. Todd Moreno Erythrocyte distribution width (RBC) [Ratio] 14.0 % Normal 11.0-15.0 [facility] Comment on above: Performed By: #### P TT, PT #### [facility] [address] [place] [address] Dr. Todd Moreno Hematocrit (Bld) [Volume fraction] 37.0 % Normal 36.0-48.0 [facility] Comment on above: Performed By: #### P TT, PT #### [facility] [address] [place] [address] Dr. Todd Moreno Hemoglobin (Bld) [Mass/Vol] 11.6 g/dL Critically low 12.0-16.[address] [facility] Comment on above: Performed By: #### P TT, PT #### [facility] [address] [place] [address] Dr. Todd Moreno IG # 0.01 10e3/ul Normal 0.00-0.03 [facility] Comment on above: Performed By: #### P TT, PT #### [facility] [address] [address] [address] Todd Moreno IG % 0.2 % Normal 0.0-0.5 [facility] Comment on above: Performed By: #### P TT, PT #### [facility] [address] [address] [address] Todd Moreno LYMPH # 2.2 103/ul Normal 1.2-3.[address] [facility] Comment on above: Performed By: #### P TT, PT #### [facility] [address] [address] [address] Todd Moreno Lymphocytes/100 WBC (Bld) 33.1 % Normal 20.5-60.[address] [facility] Comment on above: Performed By: #### P TT, PT #### [facility] [address] [place] [address] Dr. Todd Moreno MANUAL DIFF REQ NO Normal [facility] Comment on above: Performed By: #### P TT, PT #### [facility] [address] [place] [address] Dr. Todd Moreno MCH (RBC) [Entitic mass] 26.3 pg Critically low 26.7-34.0 [facility] Comment on above: Performed By: #### P TT, PT #### [facility] [address] [place] [address] Dr. Todd Moreno MCHC (RBC) [Mass/Vol] 31.4 g/dL Normal 29.9-35.[address] [facility] Comment on above: Performed By: #### P TT, PT #### [facility] [address] [address] [address] Todd Moreno MCV (RBC) [Entitic vol] 83.9 fL Normal 81.0-99.[address] [facility] Comment on above: Performed By: #### P TT, PT #### [facility] [address] [address] [address] Todd Moreno MONO # 0.2 103/ul Critically low 0.3-0.8 [facility] Comment on above: Performed By: #### P TT, PT #### [facility] [address] [place] [address] Dr. Todd Moreno Monocytes/100 WBC (Bld) 3.5 % Normal 1.7-12.0 [facility] Comment on above: Performed By: #### P TT, PT #### [facility] [address] [place] [address] Dr. Todd Moreno NEUT # 4.0 103/ul Normal 1.4-6.5 [facility] Comment on above: Performed By: #### P TT, PT #### [facility] [address] [place] [address] Dr. Todd Moreno Neutrophils/100 WBC (Bld) 60.5 % Normal 43.0-75.0 [facility] Comment on above: Performed By: #### P TT, PT #### [facility] [address] [place] [address] Dr. Todd Moreno Platelet mean volume (Bld) [Entitic vol] 10.6 fL Normal 9.5-13.5 [facility] Comment on above: Performed By: #### P TT, PT #### [facility] [address] [place] [address] Dr. Todd Moreno PLT 263 103/ul Normal 150-450 [facility] Comment on above: Performed By: #### P TT, PT #### [facility] [address] [place] [address] Dr. Todd Moreno RBC 4.41 106/ul Normal 4.20-5.[address] [facility] Comment on above: Performed By: #### P TT, PT #### [facility] [address] [place] [address] Dr. Todd Moreno WBC 6.6 103/ul Normal 4.0-11.0 [facility] Comment on above: Performed By: #### P TT, PT #### [facility] [address] [place] [address] Dr. Todd Moreno FREE T4on 10-15-2021 Free T4 [Mass/Vol] 1.05 ng/dL Normal 0.76-1.46 [facility] Comment on above: Performed By: #### P TT, PT #### [facility] [address] [place] [address] Dr. Todd Moreno PROTIMEon 10-15-2021 INR Coag (PPP) [Relative time] 1.02 {INR} Normal [facility] Comment on above: Performed By: #### P TT, PT #### [facility] [address] [place] [address] Dr. Todd Moreno INR GUIDELINES SEE BELOW Normal [facility] Comment on above: Result Comment: RAMÓN RED INR: 2.0 - 3.0 CONDITIONS NOT LISTED BELOW 2.5 - 3.5 FOR PROSTHETIC HEART VALVE REPLACEMENT 2.5 - 3.5 RECURRENT THROMBOSIS Performed By: #### P TT, PT #### [facility] [address] [place] [address] Dr. Todd Moreno PT Coag (PPP) [Time] 11.0 s Normal 9.0-11.[address] [facility] Comment on above: Performed By: #### P TT, PT #### [facility] [address] [place] [address] Dr. Todd Moreno PTTon 10-15-2021 aPTT Coag (Bld) [Time] 32.4 s Normal 22.3-36.2 [facility] Comment on above: Performed By: #### P TT, PT #### [facility] [address] [place] [address] Dr. Todd Moreno TSHon 10-15-2021 TSH 1.777 uIU/mL Normal 0.358-3.740 [facility] Comment on above: Performed By: #### P TT, PT #### [facility] [address] [place] [address] Dr. Todd Moreno PAP ACOG PANEL 2: 30 to 65on 10-10-2021 . . Normal [facility] Comment on above: Result Comment: Perf ormed at: WB Performed By: #### [id number] #### [facility] [address] [place] [address] Dr. Todd Moreno Age Gdln ACOG Testing 31- Normal [facility] Comment on above: Performed By: #### [id number] #### [facility] [address] [address] [address] Todd Moreno DIAGNOSIS: Comment Normal [facility] Comment on above: Result Comment: NEGA TIVE FOR INTRAEPITHELIAL LESION OR MALIGNANCY. Performed at: WB Performed By: #### [id number] #### [facility] [address] [address] [address] Todd Moreno HPV Aptima Negative Normal Negative [facility] Comment on above: Result Comment: This nucleic acid amplification test detects fourteen high-risk HPV types (16,18,31,33,35,39,45,51,52,56,58,59,66,68) without differentiation. Performed at: =G Performed By: #### [id number] #### [facility] [address] [address] [address] Todd Moreno Methodology: Comment Normal [facility] Comment on above: Result Comment: This liquid based ThinPrep(R) pap test was screened with the use of an image guided system. Performed at: WB Performed By: #### [id number] #### [facility] [address] [address] [address] Todd Moreno Note: Comment Normal [facility] Comment [...] Performed at: WB Performed By: #### [id number] #### [facility] [address] [address] [address] Todd Moreno Performed by: Comment Normal [facility] Comment on above: Result Comment: Magalie Lemus [employer] Performed at: WB Performed By: #### [id number] #### [facility] [address] [address] [address] Todd Moreno Specimen adequacy: Comment Normal [facility] Comment on above: Result Comment: Sati sfactory for evaluation. Endocervical and/or squamous metaplastic cells (endocervical component) are present. Performed at: WB Performed By: #### [id number] #### [facility] [address] [place] [address] Dr. Todd Moreno COVID-19 Antigenon 2 COVID-19 [...] its performance Corinne Disclaimer characteristic determined by [employer] and Corinne Disclaimer validated at [facility]. This Corinne Disclaimer test has not [...] is terminated or revoked sooner. PERFORMED BY: [place] [address] PATHOLOGIST [employer] JONATHAN SHEPARD M.D. Normal [facility] Comment on above: Performed By: #### S OFIANEG, COVID-19 CORINNE #### [facility] [address] [place] [address] HCG,Urineon 03-30-2021 Beta HCG ( test) Ql (U) Negative Normal [facility] Comment on above: Result Comment: PERF ORMED BY: [place] [address] PATHOLOGIST [employer] JONATHAN SHEPARD M.D. Performed By: #### U HCG #### [facility] [address] [place] [address] Corinne Ag Negativeon 03-30-19 Corinne Ag Negative Negative Normal Negative [facility] Comment on above: Result Comment: This is a duplicate Corinne SARS Antigen (KAEL) result to be used for statistical tracking purpose only. PERFORMED BY: [place] [address] PATHOLOGIST [employer] JONATHAN SHEPARD M.D. Performed By: #### S OFIANEG, COVID-19 CORINNE #### [facility] [address] [place] [address] [facility] SARS-CoV-2 (COVID-19) RNA JESE+probe Ql (Unsp spec) Negative Normal Negative [facility] Comment on above: Order Comment: Healt hcare Worker?: N Result Comment: Testing for SARS-CoV-2 by RT-PCR This test was developed and its performance characteristics determined by [employer]) and validated at the [facility]. This test has not been FDA [...] is terminated or revoked sooner. PERFORMED BY: [place] [address] PATHOLOGIST [employer] JONATHAN SHEPARD M.D. Performed By: #### C OVID 19 [facility] #### [id number] [facility] XR elbow LT 2Von 03-01-2021 XR elbow LT 2V [facility] [place] [address] [place] [address] XRay Report Signed Patient: Moira Almaguer MR#: [id number] : 1985 Acct:[id number] Age/Sex: 35 / F ADM Date: 03/01/21 Loc: [facility] Room: Type: [facility] Attending Dr: Leandro Robles MD Ordering Provider: [...] Valdez Mcwilliams M.D.03/01/2021 1:47 PM Dictation Location: [place] [address] Transcribed By: [facility] 03/01/21 1347 Dictated By: Valdez Mcwilliams DO 03/01/21 1344 Signed By: 03/01/21 [facility] XR FOREARM LEFT 2 VIEWSon XR [...] are recommended in 7 to 10 days. [facility] Workstation ID: [id number] Dictated by: MAR DAWSON on SunSep 08, 2020 11:41:42 PM EDT Transcribed by: SHERRILL SMYTH on SunSep 09, 2020 12:10:05 AM EDT Finalized by: MAR DAWSON on SunSep 09, 2020 12:16:26 AM EDT [facility] Comment on above: Order Comment: Injur [...] on SunSep 08, 2020 11:42:00 PM EDT [facility] Comment on above: Order Comment: Injur y/Trauma or Illness?:Injury/Trauma How long have you had these symptoms (acute/chronic)?:Acute Reason for exam?:fall, pain to left shoulder radiating down arm History of cancer?:no Surgeries, chemotherapy, or radiation?:no Type of Exam?:Initial Mechanism of injury?:fall Vital Signs Date Time Vital Sign Value Performing Clinician Erik wilson 03-01-2021 11:00-0500 Body height 170.18 cm Leandro Robles Other [facility] Other 03-01-2021 11:00-0500 Body mass index (BMI) [Ratio] 30.07 kg/m2 Leandro Mckenziethomas Other [facility] Other 03-01-2021 11:00-0500 Body weight 87.09 kg Leandro Robles Other [facility] Other Encounters Encounter Date Encounter Type Care Provider Facility Start: 10-18-2023 End: 10-18-2023 ambulatory SHARLA HOOD Not Available Start: 05-21-2023 End: 05-21-2023 ambulatory SHARLA HOOD [...] 03-01-2021 End: 03-01-2021 ambulatory Leandro Robles Other [facility] Other Start: 03-01-2021 Encounter for other preprocedural examination Leandro Robles [facility] Start: 03-01-2021 Office outpatient ne w 45 minutes Leandro Robles [facility] Start: 09-09-2020 End: 09-09-2020 [facility] Payers Date Payer Category Payer Private Health Insurance [id number] 2019 Unknown [id number] 1985 Unknown [id number] 2.16. [id number] 1985 Unknown [id number] 2.16.84 [id number] 1985 Unknown [id number] 2.16.84 [id number] 1985 Unknown [id number] 2.16.84 [id number] 1985 Unknown [id number] 2.16.84 [id number] 1986 Unknown [id number] 2.16.84 [id number] 1986 Unknown [id number] 2.16.84 0.1.095598.3.579.2.593 1986 Unknown [id number] 2.16.84 [id number] 1986 Unknown [id number] 2.16.84 0.1.098193.3.579.2.1259 1986 Unknown [id number] 2.16.840 .1.063857.3.579.2.1259 1986 Unknown [id number] 2.16.840 .[id number] 1959 Self-pay 1959 Unknown [id number] 1959 Unknown [id number] 1959 Unknown [id number] Unknown [id number] 2.16.84 [id number] Social History Date Type Detail Facility Sex Assigned At [facility] Other Evaluation note 03-01-2021 Note Date & Type Note Facility 03-01-2021 Evaluation note Encounter Date Diagnosis Assessment Notes Feb, Closed fracture of capitellum of left humerus with routine healing (ICD-10 - S42.452D) MRI reviewed with patient as healing fractures within the elbow. Discussed that her lacking range of motion may be a fci condition, with or without surgical intervention. Instructed [...] M24.022) Feb, Pre-op exam (ICD-10 - Z01.818) [facility] Other History general Narrative - Reported Note Date & Type Note Facility History general Narrative - Reported Type Medical History ADHD [facility] Other Summary Purpose Family History No Family [...] DATE CREATED AUTHOR AUTHOR'S ORGANIZ ATION 10/06/2021 [facility] DATE CREATED AUTHOR AUTHOR'S ORGANIZ ATION 06/08/2022 [facility] DATE CREATED AUTHOR AUTHOR'S ORGANIZ ATION 10/21/2023 [facility] EPIC REASON FOR VISIT (unrecogniz [...] BE BASED ON THE PRIMARY CLINICAL RECORDS. [facility] [employer], [facility]. provides no warranty or guarantee of the accuracy or completeness of information in this document.
== END 2023-12-17 07:58 | disposition home or self-care (01) ==
LOC: NOMS 07:58
PROVIDERS: Visit Provider Physician Assistant
DX: Z34.92 Encounter for supervision of normal pregnancy, unspecified, second trimester (principal); Z86.32 Personal history of gestational diabetes; Z36.89 Encounter for other specified antenatal screening; Z3A.20 20 weeks gestation of pregnancy
CPT/HCPCS: 76805; 76817

== ENCOUNTER 2024-02-20 12:17 | Outpatient (OUT) | payer OTHER, SELFPAY ==
[2024-02-20 12:40] LABS: Estimated Average Glucose 114 mg/dL; Glycohemoglobin A1C 5.6 % (4.5-6.2)
[2024-02-20 13:10] LABS: Basophils Percent Auto 0.3 % (0.2-2.0); Eosinophils Absolute Auto 0.1 10^3/uL (0.0-0.7); Eosinophils Percent Auto 1.3 % (0.9-7.0); Hematocrit 34.7 % (36.0-48.0); Hemoglobin 11.1 g/dL (12.0-16.0); Immature Granulocytes Abs Auto 0.03 10^3/uL (0.00-0.03); Immature Granulocytes Pct Auto 0.3 % (0.0-0.5); Lymphocytes Absolute Auto 1.7 10^3/uL (1.2-3.8); Lymphocytes Percent Auto 19.2 % (20.5-60.0); Mean Corpuscular Hemoglobin 27.3 pg (26.7-34.0); Mean Corpuscular Volume 85.5 fL (81.0-99.0); Mean Platelet Volume 11.3 fL (9.5-13.5); Monocytes Absolute Auto 0.5 10^3/uL (0.3-0.8); Monocytes Percent Auto 5.4 % (1.7-12.0); Neutrophils Absolute Auto 6.6 10^3/uL (1.4-6.5); Neutrophils Percent Auto 73.5 % (43.0-75.0); Platelet Count 238 10^3/uL (150-450); Red Blood Count 4.06 10^6/uL (4.20-5.40); Red Cell Distribution Width 14.4 % (11.0-15.0)
== END 2024-02-20 12:18 | disposition home or self-care (01) ==
LOC: LAB 12:18
PROVIDERS: Visit Provider Obstetrics & Gynecology
DX: Z13.1 Encounter for screening for diabetes mellitus (principal)
CPT/HCPCS: 36415; 83036; 85025

== ENCOUNTER 2024-02-21 17:00 | Outpatient (OUT) | payer OTHER, SELFPAY ==
--- NOTE | 2024-02-21 17:04 | US_ITS ---
[address] [address] Patient Name: DANYELL ROSENBERG MRN: [id number] date: 1985 Sex: F Assigned Patient Location: US Current Patient Location: Accession/Order Number: [id number] Exam Date: 02/21/2024 17:10 Report Date: 02/22/2024 06:27 At the request of: ROGERS HODGE Procedure: US OB growth EXAMINATION: US OB growth HISTORY: SIZE INCONSISTENT WITH DATES Z34.92 COMPARISON: Ultrasound OB anatomy 12/17/2023 FINDINGS: Heart Rate: 139.18 bpm Amniotic Fluid Volume: 15.1 cm; normal range. Number: 1 Position: CEPHALIC BIOMETRY: BPD: 7.51 cm; 30 weeks 1 day; 50.70 % HC: 28.32 cm; 31 weeks 0 days; 55.10 % AC: 26.76 cm; 30 weeks 6 days; 77.80 % FL: 5.79 cm; 30 weeks 2 days; 51.50 % EFW: 1611.06 g; 70.80 % FL/AC: 21.63 FL/BPD: 77.09 HC/AC: 1.06 GESTATIONAL AGE: Age by EDC: 29 weeks 5 days MIL by EDC: 2024-05-03 Age by US: 30 weeks 4 days MIL by US: 2024-04-27 US/US OB growth IMPRESSION: 1. Single live intrauterine with growth detailed above. Electronically authenticated by: HALEY RABAGO Date: 02/22/2024 06:27
--- OUTSIDE RECORDS SUMMARY | 2024-02-21 17:09 | XMS_ITS | CCD ---
Author Organization [facility] Care Team Providers Care [employer] Supervisor Name Role Phone HUBER LUNDBERG Attending Unavailable TANYA ALFARO Primary Care Unavailable Leandro Robles Unavailable DONNY, DR ROB Feliciano Admitting Unavailable DONNY, DR ROB Feliciano Attending Unavailable DONNY, DR ROB Feliciano Consulting Unavailable MISC, DR JACKSON Primary Care Unavailable JOYCHNY ., RAMILA NOBLE Consulting UnavailETHAN Mclaughlin Consulting Unavailable JAMES ., DR MCCLOUD Admitting Unavailable JAMES ., DR MCCLOUD Attending Unavailable JAMES ., DR MCCLOUD Consulting Unavailable MISC, DR JACKSON Primary Care Unavailable JAMES ., DR MCCLOUD Consulting Unavailable JAMES ., DR MCCLOUD Admitting Unavailable JAMES ., DR MCCLOUD Attending Unavailable MISC, DR JACKSON Primary Care Unavailable JAMES ., DR MCCLOUD Admitting Unavailable JAMES ., DR MCCLOUD Attending Unavailable JAMES ., DR MCCLOUD Consulting Unavailable MISC, DR JACKSON Primary Care Unavailable MISC, DR JACKSON Primary Care Unavailable JAMES ., DR MCCLOUD Admitting Unavailable BOSTON, DR CARIDAD Martin Consulting Unavailable JAMES ., DR MCCLOUD Attending Unavailable JAMES ., DR MCCLOUD Consulting Unavailable MISC, DR JACKSON Primary Care Unavailable JAMES ., DR MCCLOUD Admitting Unavailable JAMES ., DR MCCLOUD Attending Unavailable JAMES ., DR MCCLOUD Consulting Unavailable JAMES ., DR MCCLOUD Admitting Unavailable JAMES ., DR MCCLOUD Attending Unavailable JAMES ., DR MCCLOUD Consulting Unavailable MISC, DR JACKSON Primary Care Unavailable Angelina DO, Emily G Primary Care Provider [phone] SRIDEVI FREITAS Attending Unavailable ANGELINA, EMILY G Referring Unavailable ANGELINA, EMILY G Primary Care Unavailable ROB GONZALES Attending Unavailable ANGELINA, EMILY G Referring Unavailable ANGELINA, EMILY G Primary Care Unavailable SRIDEVI FREITAS Attending Unavailable ANGELINA, EMILY G Referring Unavailable ANGELINA, EMILY G Primary Care Unavailable ROB GONZALES Attending Unavailable ANGELINA, EMILY G Referring Unavailable ANGELINA, EMILY G Primary Care Unavailable IVETH HOOD Attending Unavailable ROGERS RAMIREZ Attending Unavailable JAMES, ROGERS Attending Unavailable IVETH HOOD Attending Unavailable ROGERS RAMIREZ Attending Unavailable ROGERS RAMIREZ Attending Unavailable EMILY ALFARO Loren Attending Unavailable Allergies Allergy Classification Reported Allergen(s) Allergy Type Date of Onset Reaction(s) Facility (10 sources) Sertraline Drug Allergy 08-10-2022 Other [facility] Work Phone: Medications Current Medications Medication Drug Class(es) Dates Sig (Normalized) Sig (Original) amphetamine aspartate 2.5 mg / amphetamine sulfate 2.5 mg / dextroamphetamine saccharate 2.5 mg / dextroamphetamine sulfate 2.5 mg oral tablet (1 source) Central Nervous System Stimulant take 1 tablet by mouth every twelve hours Adderall 10 MG 1 tablet Orally Twice a day Active Continuous Glucose Reprint Sorter (FreeStyle Adriana 2 [place]rose) device (10 sources) Start: 11-15-2023 Continuous Glucose Reprint Sorter (FreeStyle Adriana 2 [place]rose) device Indications: History of gestational diabetes 1 Device in the morning and 1 Device at noon and 1 Device in the evening and 1 Device before bedtime. 1 each 11/15/2023 Active ergocalciferol 1.25 mg oral capsule (6 sources) Provitamin D2 Compound Start: 02-14-2023 End: 02-14-2024 take 1 capsule by mouth every week ergocalciferol (Vitamin D2) 1.25 MG (64356 UT) capsule Indications: Vitamin D deficiency Take 1 capsule (1.25 mg) by mouth 1 (one) time per week. 14 capsule 3 02/14/2023 02/14/2024 Active ibuprofen 400 mg oral tablet (1 [...] the morning Orally Once a day Active MV-Min-Fe Fum-FA-DHA ( 1 PO) (10 sources) MV-Min- Fe Fum-FA-DHA ( 1 PO) Take by mouth. Active saccharomyces boulardii 250 mg oral capsule (10 sources) take 1 capsule by mouth in the morning saccharomyces boulardii (Florastor) 250 MG capsule Take 250 mg by mouth in the morning and 250 mg before bedtime. Active Completed/Discontinued Medications Medication Drug Class(es) Dates Sig (Normalized) Sig (Original) Continuous Glucose Sensor misc (2 sources) Start: 12-13-2023 End: 01-12-2024 Continuous Glucose Sensor misc Indications: Elevated glucose 1 Device every 14 (fourteen) days 2 Device 8 12/13/2023 01/12/2024 Problems Active Problems Problem Classification Problem Date Documented Date Episodic/Chronic Anxiety disorders (11 sources) Generalized anxiety disorder; Translations: [Generalized anxiety disorder] Onset: 06-29-2020 09-15-2022 Chronic Attention-deficit, conduct, and disruptive behavior disorders (10 sources) Attention deficit hyperactivity disorder; Translations: [Attention-deficit hyperactivity disorder, unspecified type] Onset: 09-15-2022 09-15-2022 Chronic Disorders usually diagnosed in infancy, childhood, or adolescence (1 source) Other specified behavioral and emotional disorders with onset usually occurring in childhood and adolescence; Translations: [Other specified behavioral and emotional disorders with onset usually occurring in childhood and adolescence] Onset: 01-07-2024 Chronic Headache; including migraine (20 sources) Chronic tension-type headache; Translations: [Chronic tension-type headache, not intractable] Onset: 09-15-2022 09-15-2022 Chronic Immunizations and screening for infectious disease (5 sources) Encounter for screening for infections with a predominantly sexual mode of transmission; Translations: [Encounter for screening for human papillomavirus (HPV)] Onset: 10-06-2021 Episodic Malaise and fatigue (10 sources) Fatigue; Translations: [Chronic fatigue, unspecified] Onset: 09-15-2022 09-15-2022 Chronic Menstrual disorders (18 sources) Irregular menstruation, unspecified; Translations: [Excessive and frequent menstruation with regular cycle] Onset: 10-15-2021 Chronic Mood disorders (11 sources) Moderate recurrent major depression; Translations: [Major depressive disorder, recurrent, moderate] Onset: 09-15-2022 09-15-2022 Chronic Nutritional deficiencies (10 sources) Vitamin D deficiency; Translations: [Vitamin D deficiency, unspecified] Onset: 09-15-2022 09-15-2022 Chronic Other female genital disorders (1 source) Other specified noninflammatory disorders of vagina; Translations: [OTH SPEC NONINFLAMMATORY D/O VAGINA] Onset: 06-05-2022 Episodic Other nervous system disorders (10 sources) Chronic pain; Translations: [Other chronic pain] Onset: 09-15-2022 09-15-2022 Chronic Other non-traumatic joint disorders (1 source) Loose body in left elbow joint; Translations: [Loose body in left elbow] Chronic Other non-traumatic joint disorders (1 source) Loose body in left elbow Onset: 03-01-2021 Resolved: 03-01-2021 Chronic Other and delivery including normal (20 sources) Encounter for supervision of other normal , first trimester; Translations: [Encounter for supervision of normal , unspecified, first trimester] Onset: 03-04-2022 Episodic Other screening for suspected conditions (not mental disorders or infectious disease) (7 sources) Encounter for other screening for genetic and chromosomal anomalies; Translations: [Encounter for screening for malignant neoplasm of cervix] Onset: 10-05-2021 Episodic Residual codes; unclassified (12 sources) Gestation period, 23 weeks; Translations: [23 weeks gestation of ] Onset: 01-10-2024 01-10-2024 Episodic Residual codes; unclassified (2 sources) Gestation period, 24 weeks; Translations: [24 weeks gestation of ] 02-07-2024 Episodic Residual codes; unclassified (2 sources) Gestation period, 29 weeks; Translations: [29 weeks gestation of ] 02-20-2024 Episodic Unclassified (2 sources) LOW BACK PAIN, UNSPECIFIED; Translations: [LOW BACK PAIN, UNSPECIFIED] Onset: 02-02-2022 Unclassified (1 source) BH Diagnostic Assessment Onset: 01-07-2024 Past or Other Problems Problem Classification Problem Date Documented Date Episodic/Chronic Abdominal pain (1 source) Pelvic and perineal pain; Translations: [PELVIC AND PERINEAL PAIN] Onset: 02-02-2022 Episodic Cancer of cervix (10 sources) Low grade squamous intraepithelial lesion on cervical Papanicolaou smear; Translations: [Low grade squamous intraepithelial lesion on cytologic smear of cervix (LGSIL)] Onset: 09-15-2022 09-15-2022 Episodic Fracture of upper limb (2 sources) Displaced fracture of lateral condyle of left humerus, subsequent encounter for fracture with routine healing; Translations: [Nondisplaced fracture of head of left radius, subsequent encounter for closed fracture with routine healing] Onset: 03-01-2021 Resolved: 03-01-2021 Episodic Nonmalignant breast conditions (10 sources) Large breast; Translations: [Hypertrophy of breast] Onset: 09-15-2022 09-15-2022 Episodic Other complications of (1 source) Unspecified [...] 8 WEEKS GESTATION ] Onset: 02-02-2022 Episodic Residual codes; unclassified (10 sources) H/O: miscarriage; Translations: [Personal history of other complications of , childbirth and the puerperium] Onset: 06-22-2023 06-22-2023 Episodic Screening and history of mental health and substance abuse codes (1 source) Personal history of nicotine dependence; Translations: [PERSONAL HISTORY OF NICOTINE DEPEND] Onset: 02-02-2022 Episodic Spondylosis; intervertebral disc disorders; other back problems (20 sources) Neck pain; Translations: [Cervicalgia] Onset: 09-15-2022 09-15-2022 Episodic Unclassified (1 source) LOW BACK PAIN, UNSPECIFIED; Translations: [LOW BACK PAIN, UNSPECIFIED] Onset: 01-31-2022 Urinary tract infections (1 source) Urinary tract infection, site not specified; Translations: [UTI SITE NOT SPECIFIED] Onset: 02-02-2022 Episodic Viral infection (10 sources) Human papilloma virus infection; Translations: [Papillomavirus as the cause of diseases classified elsewhere] Onset: 09-15-2022 09-15-2022 Episodic Results Test Name Value Interpretation Reference Range Facility [facility] HEMOGLOBIN A1Con 024 Glucose [Mass/Vol] 114 mg/dL [facility] HbA1c (Bld) [Mass fraction] 5.6 % 4.5 - 6.2 % [facility] Comment on above: ADA RECOMMENDED LIMI T 4.0 - 6.0 ADA THERAPEUTIC TARGET < 7.0 ACTION SUGGESTED > 7.0 [facility] Urinalysis macro (dipstick) panel (U)on 02-20-2024 Bilirubin, UA Positive Negative - 4(70) +++ mg/dL [facility] Comment on above: small Blood, UA Negative Negative - 50 Andrew/mcL [facility] Clarity, UA Clear [facility] Color, UA Yellow [facility] Glucose, UA Negative Negative - 2000(110) ++++ mg/dL [facility] Interpretation and review of laboratory results Abnormal [facility] Ketones, UA Positive Negative - 160(16) ++++ mg/dL [facility] Comment on above: trace Leukocytes, UA Negative Negative - 500+++ Lore/mcL [facility] Nitrite, UA Negative Negative - Positive [facility] pH, UA 6 5 - 9 [facility] Protein, UA Trace Negative - 2000(20) ++++ mg/dL [facility] Spec Grav, UA 1.03 1 - 1.03 [facility] Urobilinogen, UA 1.0 0.2 - 12 mg/dL [facility] Urinalysis macro (dipstick) panel (U)on 01-10-2024 Bilirubin, UA Negative Negative - 4(70) +++ mg/dL [facility] Blood, UA Negative Negative - 50 Andrew/mcL [facility] Clarity, UA Clear [facility] Color, UA Yellow [facility] Glucose, UA Negative Negative - 2000(110) ++++ mg/dL [facility] Interpretation and review of laboratory results Normal [facility] Ketones, UA Negative Negative - 160(16) ++++ mg/dL [facility] Leukocytes, UA Negative Negative - 500+++ Lore/mcL [facility] Nitrite, UA Negative Negative - Positive [facility] pH, UA 5.5 5 - 9 [facility] Protein, UA Negative Negative - 1999(20) ++++ mg/dL [facility] Spec Grav, UA 1.02 1 - 1.03 [facility] Urobilinogen, UA 1.0 0.2 - 12 mg/dL [facility] CHLAMYDIA/GONOCOCCUS JESE (SW AB/URINE/PAPon 06-01-2022 Chlamydia trachomatis, JESE Negative Normal Negative [facility] Comment on above: Performed By: #### P TT, PT #### [facility] [address] [place] [address] Dr. Todd Moreno Neisseria gonorrhoeae, JESE Negative Normal Negative [facility] Comment on above: Performed By: #### P TT, PT #### [facility] [address] [place] [address] Dr. Todd Moreno VAGINITIS/VAGINOSIS DNA PROB Shaheed 06-01-2022 Tatyana species Negative Normal Negative [facility] Comment on above: Performed By: #### P TT, PT #### [facility] [address] [place] [address] Dr. Todd Moreno Gardnerella vaginalis Negative Normal Negative [facility] Comment on above: Performed By: #### P TT, PT #### [facility] [address] [place] [address] Dr. Todd Moreno Trichomonas vaginalis Negative Normal Negative [facility] Comment on above: Performed By: #### P TT, PT #### [facility] [address] [place] [address] Dr. Todd Moreno HEP B SURFACE ANTIGEN SCREEN on 03-22-2022 HBsAg Screen Negative Normal Negative [facility] Comment on above: Performed By: #### H BSANS #### [facility] [address] [place] [address] Dr. Todd Moreno HEPATITIS C VIRUS AB W/ REFL EX QUANTon 03-22-2022 HCV AB 0.1 s/co ratio Normal 0.0-0.9 [facility] Comment on above: Performed By: #### P TT, PT #### [facility] [address] [place] [address] Dr. Todd Moreno Interpretation: Comment Normal [facility] Comment on above: Result Comment: Nega tive Not infected with HCV, unless recent infection is suspected or other evidence exists to indicate HCV infection. Performed By: #### P TT, PT #### [facility] [address] [place] [address] Dr. Todd Moreno HIV 1 AND 2 WITH REFLEXon HIV Screen 4th Generation wRfx Non-Reactive Normal Non Reactive [facility] Comment on above: Result Comment: HIV Negative HIV-1/HIV-2 antibodies and HIV-1 p24 antigen were NOT detected. There is no laboratory evidence of HIV infection. Performed By: #### H IV12 #### [facility] [address] [place] [address] Dr. Todd Moreno RPR QUANTon 03-22-2022 Rapid Plasma Reagin, Quant Non-Reactive Normal NonRea<1:1 [facility] Comment on above: Result Comment: Plea se Note: This test does not meet current guidelines for screening and diagnosis of syphilis. This test is intended for following treatment response in patients being treated for syphilis infection. To screen for syphilis infection, a reflex cascade that includes both RPR and a treponema-specific assay should be utilized, such as Treponema pallidum (Syphilis) Screening [place] (067385) or Rapid Plasma Reagin (RPR) Test With Reflex to Quantitative RPR and Confirmatory Treponema pallidum Antibodies (276514). Performed By: #### R PRQ #### [facility] [address] [place] [address] Dr. Todd Moreno RUBELLA AB IGGon 03-22-2022 Rubella Antibodies, IgG 5.11 index Normal Immune >0.99 [facility] Comment on above: Result Comment: Non- immune <0.90 Equivocal 0.90 - 0.99 Immune >0.99 Performed By: #### R PRQ #### [facility] [address] [place] [address] Dr. Todd Moreno CBC AUTO DIFFon 03-20-2022 BASO # 0.0 103/ul Normal 0.0-0.1 [facility] Comment on above: Performed By: #### P TT, PT #### [facility] [address] [place] [address] Dr. Todd Moreno Basophils/100 WBC (Bld) 0.3 % Normal 0.2-2.0 [facility] Comment on above: Performed By: #### P TT, PT #### [facility] [address] [place] [address] Dr. Todd Moreno EO # 0.1 103/ul Normal 0.0-0.7 [facility] Comment on above: Performed By: #### P TT, PT #### [facility] [address] [place] [address] Dr. Todd Moreno Eosinophils/100 WBC (Bld) 1.0 % Normal 0.9-7.0 [facility] Comment on above: Performed By: #### P TT, PT #### [facility] [address] [place] [address] Dr. Todd Moreno Erythrocyte distribution width (RBC) [Ratio] 14.4 % Normal 11.0-15.0 [facility] Comment on above: Performed By: #### P TT, PT #### [facility] [address] [place] [address] Dr. Todd Moreno Hematocrit (Bld) [Volume fraction] 38.2 % Normal 36.0-48.0 [facility] Comment on above: Performed By: #### P TT, PT #### [facility] [address] [place] [address] Dr. Todd Moreno Hemoglobin (Bld) [Mass/Vol] 12.2 g/dL Normal 12.0-16.0 [facility] Comment on above: Performed By: #### P TT, PT #### [facility] [address] [place] [address] Dr. Todd Moreno IG # 0.03 10e3/ul Normal 0.00-0.03 [facility] Comment on above: Performed By: #### P TT, PT #### [facility] [address] [place] [address] Dr. Todd Moreno IG % 0.3 % Normal 0.0-0.5 [facility] Comment on above: Performed By: #### P TT, PT #### [facility] [address] [address] [address] Todd Moreno LYMPH # 1.9 103/ul Normal 1.2-3.8 [facility] Comment on above: Performed By: #### P TT, PT #### [facility] [address] [address] [address] Tdod Moreno Lymphocytes/100 WBC (Bld) 19.0 % Critically low 20.5-60.0 [facility] Comment on above: Performed By: #### P TT, PT #### [facility] [address] [address] [address] Todd Moreno MANUAL DIFF REQ NO Normal [facility] Comment on above: Performed By: #### P TT, PT #### [facility] [address] [place] [address] Dr. Todd Moreno MCH (RBC) [Entitic mass] 26.1 pg Critically low 26.7-34.0 [facility] Comment on above: Performed By: #### P TT, PT #### [facility] [address] [place] [address] Dr. Todd Moreno MCHC (RBC) [Mass/Vol] 31.9 g/dL Normal 29.9-35.2 [facility] Comment on above: Performed By: #### P TT, PT #### [facility] [address] [place] [address] Dr. Todd Moreno MCV (RBC) [Entitic vol] 81.6 fL Normal 81.0-99.0 [facility] Comment on above: Performed By: #### P TT, PT #### [facility] [address] [place] [address] Dr. Todd Moreno MONO # 0.4 103/ul Normal 0.3-0.8 [facility] Comment on above: Performed By: #### P TT, PT #### [facility] [address] [place] [address] Dr. Todd Moreno Monocytes/100 WBC (Bld) 4.4 % Normal 1.7-12.0 [facility] Comment on above: Performed By: #### P TT, PT #### [facility] [address] [address] [address] Todd Moreno NEUT # 7.5 103/ul Critically high 1.4-6.5 [facility] Comment on above: Performed By: #### P TT, PT #### [facility] [address] [address] [address] Todd Moreno Neutrophils/100 WBC (Bld) 75.0 % Normal 43.0-75.0 [facility] Comment on above: Performed By: #### P TT, PT #### [facility] [address] [address] [address] Todd Moreno Platelet mean volume (Bld) [Entitic vol] 10.4 fL Normal 9.5-13.5 [facility] Comment on above: Performed By: #### P TT, PT #### [facility] [address] [place] [address] Dr. Todd Moreno PLT 302 103/ul Normal 150-450 [facility] Comment on above: Performed By: #### P TT, PT #### [facility] [address] [address] [address] Todd Moreno RBC 4.68 106/ul Normal 4.20-5.40 [facility] Comment on above: Performed By: #### P TT, PT #### [facility] [address] [address] [address] Todd Moreno WBC 10.1 103/ul Normal 4.0-11.0 [facility] Comment on above: Performed By: #### P TT, PT #### [facility] [address] [address] [address] Todd Moreno CULTURE URINEon 03-20-2022 CULTURE URINE Culture Observations : MODERATE GROWTH OF MIXED GENITAL LORA. NO POTENTIAL PATHOGENS SEEN. Normal [facility] Comment on above: Performed By: #### P TT, PT #### [facility] [address] [place] [address] Dr. Todd Moreno GLYCOHEMOGLOBIN A1Con 2022 ADA RECOMMENDATION SEE BELOW Normal [facility] Comment on above: Result Comment: ADA RECOMMENDED LIMIT 4.0 - 6.0 ADA THERAPEUTIC TARGET < 7.0 ACTION SUGGESTED > 7.0 Performed By: #### A 1C #### [facility] [address] [place] [address] Dr. Todd Moreno Glucose [Mass/Vol] 105 mg/dL Normal [facility] Comment on above: Performed By: #### A 1C #### [facility] [address] [place] [address] Dr. Todd Moreno HbA1c (Bld) [Mass fraction] 5.3 % Normal 4.5-6.2 [facility] Comment on above: Performed By: #### A 1C #### [facility] [address] [place] [address] Dr. Todd Moreno BENJAMIN BOX TEST PT SEND OUTo n 03-20-2022 SENT TO REF LAB 03/20/2022 Normal [facility] Comment on above: Performed By: #### P TT, PT #### [facility] [address] [place] [address] Dr. Todd Moreno TYPE AND SCREENon 03-20-2022 TYPE AND SCREEN Negative Normal [facility] Comment on above: Performed By: #### P TT, PT #### [facility] [address] [place] [address] Dr. Todd Moreno US PREG TVon 02-24-2022 [...] by: CARIDAD DOBSON Date: 2022-02-24 16:16 Normal [facility] CULTURE URINEon 02-03-2022 CULTURE URINE Isolate [...] F Oxacillin 0.5 S F Normal [facility] Comment on above: Performed By: #### P TT, PT #### [facility] [address] [place] [address] Dr. Todd Moreno US PREG TVon 02-01-2022 [...] ETHAN MERCER Date: 2022-01-31 22:05 Normal [facility] CBC AUTO DIFFon 01-31-2022 BASO # 0.1 103/ul Normal 0.0-0.1 [facility] Comment on above: Performed By: #### P TT, PT #### [facility] [address] [place] [address] Dr. Todd Moreno Basophils/100 WBC (Bld) 0.8 % Normal 0.2-2.0 [facility] Comment on above: Performed By: #### P TT, PT #### [facility] [address] [place] [address] Dr. Todd Moreno EO # 0.5 103/ul Normal 0.0-0.7 [facility] Comment on above: Performed By: #### P TT, PT #### [facility] [address] [place] [address] Dr. Todd Moreno Eosinophils/100 WBC (Bld) 5.4 % Normal 0.9-7.0 [facility] Comment on above: Performed By: #### P TT, PT #### [facility] [address] [place] [address] Dr. Todd Moreno Erythrocyte distribution width (RBC) [Ratio] 15.0 % Normal 11.0-15.0 [facility] Comment on above: Performed By: #### P TT, PT #### [facility] [address] [place] [address] Dr. Todd Moreno Hematocrit (Bld) [Volume fraction] 34.3 % Critically low 36.0-48.0 [facility] Comment on above: Performed By: #### P TT, PT #### [facility] [address] [place] [address] Dr. Todd Moreno Hemoglobin (Bld) [Mass/Vol] 11.2 g/dL Critically low 12.0-16.0 [facility] Comment on above: Performed By: #### P TT, PT #### [facility] [address] [place] [address] Dr. Todd Moreno IG # 0.02 10e3/ul Normal 0.00-0.03 [facility] Comment on above: Performed By: #### P TT, PT #### [facility] [address] [place] [address] Dr. Todd Moreno IG % 0.2 % Normal 0.0-0.5 [facility] Comment on above: Performed By: #### P TT, PT #### [facility] [address] [place] [address] Dr. Todd Moreno LYMPH # 2.7 103/ul Normal 1.2-3.8 [facility] Comment on above: Performed By: #### P TT, PT #### [facility] [address] [place] [address] Dr. Todd Moreno Lymphocytes/100 WBC (Bld) 29.9 % Normal 20.5-60.0 [facility] Comment on above: Performed By: #### P TT, PT #### [facility] [address] [place] [address] Dr. Todd Moreno MANUAL DIFF REQ NO Normal [facility] Comment on above: Performed By: #### P TT, PT #### [facility] [address] [place] [address] Dr. Todd Moreno MCH (RBC) [Entitic mass] 26.7 pg Normal 26.7-34.0 [facility] Comment on above: Performed By: #### P TT, PT #### [facility] [address] [place] [address] Dr. Todd Moreno MCHC (RBC) [Mass/Vol] 32.7 g/dL Normal 29.9-35.2 [facility] Comment on above: Performed By: #### P TT, PT #### [facility] [address] [place] [address] Dr. Todd Moreno MCV (RBC) [Entitic vol] 81.7 fL Normal 81.0-99.0 [facility] Comment on above: Performed By: #### P TT, PT #### [facility] [address] [place] [address] Dr. Todd Moreno MONO # 0.5 103/ul Normal 0.3-0.8 [facility] Comment on above: Performed By: #### P TT, PT #### [facility] [address] [place] [address] Dr. Todd Moreon Monocytes/100 WBC (Bld) 5.7 % Normal 1.7-12.0 [facility] Comment on above: Performed By: #### P TT, PT #### [facility] [address] [place] [address] Dr. Todd Moreno NEUT # 5.2 103/ul Normal 1.4-6.5 [facility] Comment on above: Performed By: #### P TT, PT #### [facility] [address] [place] [address] Dr. Todd Moreno Neutrophils/100 WBC (Bld) 58.0 % Normal 43.0-75.0 [facility] Comment on above: Performed By: #### P TT, PT #### [facility] [address] [place] [address] Dr. Todd Moreno Platelet mean volume (Bld) [Entitic vol] 10.4 fL Normal 9.5-13.5 [facility] Comment on above: Performed By: #### P TT, PT #### [facility] [address] [place] [address] Dr. Todd Moreno PLT 270 103/ul Normal 150-450 [facility] Comment on above: Performed By: #### P TT, PT #### [facility] [address] [place] [address] Dr. Todd Moreno RBC 4.20 106/ul Normal 4.20-5.40 [facility] Comment on above: Performed By: #### P TT, PT #### [facility] [address] [place] [address] Dr. Todd Moreno WBC 9.1 103/ul Normal 4.0-11.0 [facility] Comment on above: Performed By: #### P TT, PT #### [facility] [address] [place] [address] Dr. Todd Moreno ER URINE PROFILEon 2 Bilirubin Ql (U) Negative Normal NEGATIVE [facility] Comment on above: Performed By: #### P TT, PT #### [facility] [address] [place] [address] Dr. Todd Moreno Clarity (U) CLEAR Normal CLEAR [facility] Comment on above: Performed By: #### P TT, PT #### [facility] [address] [place] [address] Dr. Todd Moreno Color (U) YELLOW Normal YELLOW [facility] Comment on above: Performed By: #### P TT, PT #### [facility] [address] [place] [address] Dr. Todd SALINAS A micrscopic examination will be performed if indicated. Normal [facility] Comment on above: Performed By: #### P TT, PT #### [facility] [address] [place] [address] Dr. Todd Moreno Glucose Ql (U) Negative Normal NEGATIVE [facility] Comment on above: Performed By: #### P TT, PT #### [facility] [address] [place] [address] Dr. Todd Moreno Hemoglobin Ql (U) TRACE-INTACT Abnormal NEGATIVE [facility] Comment on above: Performed By: #### P TT, PT #### [facility] [address] [place] [address] Dr. Todd Moreno Ketones Ql (U) Negative Normal NEGATIVE [facility] Comment on above: Performed By: #### P TT, PT #### [facility] [address] [place] [address] Dr. Todd Moreno LEUKOCYTES SMALL Abnormal NEGATIVE [facility] Comment on above: Performed By: #### P TT, PT #### [facility] [address] [place] [address] Dr. Todd Moreno Nitrite Ql (U) Negative Normal NEGATIVE [facility] Comment on above: Performed By: #### P TT, PT #### [facility] [address] [place] [address] Dr. Todd Moreno pH (U) 6.5 [pH] Normal 5-9 [facility] Comment on above: Performed By: #### P TT, PT #### [facility] [address] [place] [address] Dr. Todd Moreno SPEC GRAVITY 1.015 Normal 1.005-<=1.025 [facility] Comment on above: Performed By: #### P TT, PT #### [facility] [address] [place] [address] Dr. Todd Moreno UA PROTEIN Negative Normal NEGATIVE/ TRACE [facility] Comment on above: Performed By: #### P TT, PT #### [facility] [address] [place] [address] Dr. Todd Moreno UR MICRO IND INDICATED Normal [facility] Comment on above: Performed By: #### P TT, PT #### [facility] [address] [place] [address] Dr. Todd Moreno Urobilinogen Qn (U) 0.2 {Tiffany'U}/dL Normal 0.2 - 1. 0 [facility] Comment on above: Performed By: #### P TT, PT #### [facility] [address] [place] [address] Dr. Todd Moreno LIPASEon 01-31-2022 Lipase [Catalytic activity/Vol] 123.0 U/L Normal 73.0-393.0 [facility] Comment on above: Performed By: #### C MP, LIPA #### [facility] [address] [place] [address] Dr. Todd Moreno PREG QUANT HCGon 01-31-2022 HCG QUANT 711 mIU/mL Normal [facility] Comment on above: Performed By: #### P TT, PT #### [facility] [address] [place] [address] Dr. Todd Moreno HCG RANGE SEE BELOW Normal [facility] Comment on above: Result Comment: 5-50 0.2-1 WEEK 50-500 1-2 WEEKS 100-5,000 2-3 WEEKS 500-10,000 3-4 WEEKS 1,000-50,000 4-5 WEEKS 10,000-100,000 5-6 WEEKS 15,000-200,000 6-8 WEEKS 10,000-100,000 2-3 MONTHS Performed By: #### P TT, PT #### [facility] [address] [place] [address] Dr. Todd Moreno PROF 14(COMP METB)on 01-31- 022 Albumin [Mass/Vol] 3.7 g/dL Normal 3.4-5.0 [facility] Comment on above: Performed By: #### C MP, LIPA #### [facility] [address] [place] [address] Dr. Tdod Moreno Albumin/Globulin [Mass ratio] 1.0 {ratio} Normal [facility] Comment on above: Performed By: #### C MP, LIPA #### [facility] [address] [place] [address] Dr. Todd Moreno ALP [Catalytic activity/Vol] 80 U/L Normal 46-116 [facility] Comment on above: Performed By: #### C MP, LIPA #### [facility] [address] [place] [address] Dr. Todd Moreno ALT [Catalytic activity/Vol] 23 U/L Normal 14-59 [facility] Comment on above: Performed By: #### C MP, LIPA #### [facility] [address] [place] [address] Dr. Todd Moreno Anion gap [Moles/Vol] 10.2 mmol/L Normal [facility] Comment on above: Performed By: #### C MP, LIPA #### [facility] [address] [place] [address] Dr. Todd Moreno AST [Catalytic activity/Vol] 14 U/L Critically low 15-37 [facility] Comment on above: Performed By: #### C MP, LIPA #### [facility] [address] [place] [address] Dr. Todd Moreno Bilirubin [Mass/Vol] 0.3 mg/dL Normal 0.2-1.0 [facility] Comment on above: Performed By: #### C MP, LIPA #### [facility] [address] [address] [address] Todd Moreno Calcium [Mass/Vol] 9.1 mg/dL Normal 8.5-10.1 [facility] Comment on above: Performed By: #### C MP, LIPA #### [facility] [address] [place] [address] Dr. Todd Moreno Chloride [Moles/Vol] 104 mmol/L Normal 98-107 [facility] Comment on above: Performed By: #### C MP, LIPA #### [facility] [address] [place] [address] Dr. Todd Moreno CO2 [Moles/Vol] 26.8 mmol/L Normal 21.0-32.0 [facility] Comment on above: Performed By: #### C MP, LIPA #### [facility] [address] [place] [address] Dr. Todd Moreno Creatinine [Mass/Vol] 0.87 mg/dL Normal 0.55-1.02 [facility] Comment on above: Performed By: #### C MP, LIPA #### [facility] [address] [place] [address] Dr. Todd Moreno EGFR-AF CAMBODIAN >60 Normal >=60 [facility] Comment on above: Performed By: #### C MP, LIPA #### [facility] [address] [place] [address] Dr. Todd Moreno EGFR-NON AF CAMBODIAN >60 Normal >=60 [facility] Comment on above: Performed By: #### C MP, LIPA #### [facility] [address] [place] [address] Dr. Todd Moreno Globulin (S) [Mass/Vol] 3.7 g/dL Normal [facility] Comment on above: Performed By: #### C MP, LIPA #### [facility] [address] [address] [address] Todd Moreno Glucose [Mass/Vol] 98 mg/dL Normal 74-106 [facility] Comment on above: Performed By: #### C MP, LIPA #### [facility] [address] [address] [address] Todd Moreno Potassium [Moles/Vol] 4.0 mmol/L Normal 3.5-5.1 [facility] Comment on above: Performed By: #### C MP, LIPA #### [facility] [address] [place] [address] Dr. Todd Moreno Protein [Mass/Vol] 7.4 g/dL Normal 6.4-8.2 [facility] Comment on above: Performed By: #### C MP, LIPA #### [facility] [address] [place] [address] Dr. Todd Moreno Sodium [Moles/Vol] 137 mmol/L Normal 136-145 [facility] Comment on above: Performed By: #### C MP, LIPA #### [facility] [address] [place] [address] Dr. Todd Moreno Urea nitrogen [Mass/Vol] 15.0 mg/dL Normal 7.0-18.0 [facility] Comment on above: Performed By: #### C MP, LIPA #### [facility] [address] [place] [address] Dr. Todd Moreno Urea nitrogen/Creatinine [Mass ratio] 17.2 mg/mg Normal [facility] Comment on above: Performed By: #### C MP, LIPA #### [facility] [address] [place] [address] Dr. Todd Moreno URINE MICROSCOPIC ONLYon BACTERIA SMALL Abnormal NONE SEEN [facility] Comment on above: Performed By: #### P TT, PT #### [facility] [address] [place] [address] Dr. Todd Moreno Bacteria identified Cx Nom (U) INDICATED Normal [facility] Comment on above: Performed By: #### P TT, PT #### [facility] [address] [place] [address] Dr. Todd Moreno CAST NONE SEEN Normal NONE SEEN [facility] Comment on above: Performed By: #### P TT, PT #### [facility] [address] [place] [address] Dr. Todd Moreno Crystals LM Nom (Urine sed) NONE SEEN Normal NONE SEEN [facility] Comment on above: Performed By: #### P TT, PT #### [facility] [address] [place] [address] Dr. Todd Moreno Epithelial cells LM Ql (Urine sed) FEW Abnormal NONE SEEN /RARE [facility] Comment on above: Performed By: #### P TT, PT #### [facility] [address] [place] [address] Dr. Todd Moreno MUCOUS NONE SEEN Normal NONE SEEN [facility] Comment on above: Performed By: #### P TT, PT #### [facility] [address] [place] [address] Dr. Todd Moreno RBC 0-2 Normal 0-2 [facility] Comment on above: Performed By: #### P TT, PT #### [facility] [address] [place] [address] Dr. Todd Moreno WBC 10-20 Abnormal NONE SEEN [facility] Comment on above: Performed By: #### P TT, PT #### [facility] [address] [place] [address] Dr. Todd Moreno ESTROGENon 10-20-2021 Estrogens, Total 68 pg/mL Normal [facility] Comment on above: Result Comment: Prep ubertal < 40 Female Cycle: 1-10 Days 16 - 328 11-20 Days 34 - 501 21-30 Days 48 - 350 Post-Menopausal 40 - 244 Performed By: #### P TT, PT #### [facility] [address] [place] [address] Dr. Todd Moreno ESTRADIOLon 10-16-2021 Estradiol 62.1 pg/mL Normal [facility] Comment on above: Result Comment: Adul t Female: Follicular phase 12.5 - 166.0 Ovulation phase 85.8 - 498.0 Luteal phase 43.8 - 211.0 Postmenopausal <6.0 - 54.7 1st trimester 215.0 - >4300.0 Ramos ECLIA methodology Performed By: #### E STRADI #### [facility] [address] [place] [address] Dr. Todd Moreno FSHon 10-16-2021 FSH 5.6 mIU/mL Normal [facility] Comment on above: Result Comment: Adul t Female: Follicular phase 3.5 - 12.5 Ovulation phase 4.7 - 21.5 Luteal phase 1.7 - 7.7 Postmenopausal 25.8 - 134.8 Performed By: #### P TT, PT #### [facility] [address] [address] [address] Todd Moreno LUTEINIZING HORMONE (LH)on 0 10-16-2021 LH 12.1 mIU/mL Normal [facility] Comment on above: Result Comment: Adul t Female: Follicular phase 2.4 - 12.6 Ovulation phase 14.0 - 95.6 Luteal phase 1.0 - 11.4 Postmenopausal 7.7 - 58.5 Performed By: #### P TT, PT #### [facility] [address] [place] [address] Dr. Todd Moreno CBC AUTO DIFFon 10-15-2021 BASO # 0.0 103/ul Normal 0.0-0.1 [facility] Comment on above: Performed By: #### P TT, PT #### [facility] [address] [address] [address] Todd Moreno Basophils/100 WBC (Bld) 0.6 % Normal 0.2-2.0 [facility] Comment on above: Performed By: #### P TT, PT #### [facility] [address] [address] [address] Todd Moreno EO # 0.1 103/ul Normal 0.0-0.7 [facility] Comment on above: Performed By: #### P TT, PT #### [facility] [address] [address] [address] Todd Moreno Eosinophils/100 WBC (Bld) 2.1 % Normal 0.9-7.0 [facility] Comment on above: Performed By: #### P TT, PT #### [facility] [address] [address] [address] Todd Moreno Erythrocyte distribution width (RBC) [Ratio] 14.0 % Normal 11.0-15.0 [facility] Comment on above: Performed By: #### P TT, PT #### [facility] [address] [place] [address] Dr. Todd Moreno Hematocrit (Bld) [Volume fraction] 37.0 % Normal 36.0-48.0 [facility] Comment on above: Performed By: #### P TT, PT #### [facility] [address] [place] [address] Dr. Todd Moreno Hemoglobin (Bld) [Mass/Vol] 11.6 g/dL Critically low 12.0-16.0 [facility] Comment on above: Performed By: #### P TT, PT #### [facility] [address] [place] [address] Dr. Todd Moreno IG # 0.01 10e3/ul Normal 0.00-0.03 [facility] Comment on above: Performed By: #### P TT, PT #### [facility] [address] [place] [address] Dr. Todd Moreno IG % 0.2 % Normal 0.0-0.5 [facility] Comment on above: Performed By: #### P TT, PT #### [facility] [address] [place] [address] Dr. Todd Moreno LYMPH # 2.2 103/ul Normal 1.2-3.8 [facility] Comment on above: Performed By: #### P TT, PT #### [facility] [address] [place] [address] Dr. Todd Moreno Lymphocytes/100 WBC (Bld) 33.1 % Normal 20.5-60.0 [facility] Comment on above: Performed By: #### P TT, PT #### [facility] [address] [place] [address] Dr. Todd Moreno MANUAL DIFF REQ NO Normal [facility] Comment on above: Performed By: #### P TT, PT #### [facility] [address] [place] [address] Dr. Todd Moreno MCH (RBC) [Entitic mass] 26.3 pg Critically low 26.7-34.0 [facility] Comment on above: Performed By: #### P TT, PT #### [facility] [address] [place] [address] Dr. Todd Moreno MCHC (RBC) [Mass/Vol] 31.4 g/dL Normal 29.9-35.2 [facility] Comment on above: Performed By: #### P TT, PT #### [facility] [address] [place] [address] Dr. Todd Moreno MCV (RBC) [Entitic vol] 83.9 fL Normal 81.0-99.0 [facility] Comment on above: Performed By: #### P TT, PT #### [facility] [address] [place] [address] Dr. Todd Moreno MONO # 0.2 103/ul Critically low 0.3-0.8 [facility] Comment on above: Performed By: #### P TT, PT #### [facility] [address] [place] [address] Dr. Todd Moreno Monocytes/100 WBC (Bld) 3.5 % Normal 1.7-12.0 [facility] Comment on above: Performed By: #### P TT, PT #### [facility] [address] [place] [address] Dr. Todd Moreno NEUT # 4.0 103/ul Normal 1.4-6.5 [facility] Comment on above: Performed By: #### P TT, PT #### [facility] [address] [place] [address] Dr. Todd Moreno Neutrophils/100 WBC (Bld) 60.5 % Normal 43.0-75.0 [facility] Comment on above: Performed By: #### P TT, PT #### [facility] [address] [place] [address] Dr. Todd Moreno Platelet mean volume (Bld) [Entitic vol] 10.6 fL Normal 9.5-13.5 [facility] Comment on above: Performed By: #### P TT, PT #### [facility] [address] [place] [address] Dr. Todd Moreno PLT 263 103/ul Normal 150-450 [facility] Comment on above: Performed By: #### P TT, PT #### [facility] [address] [place] [address] Dr. Todd Moreno RBC 4.41 106/ul Normal 4.20-5.40 [facility] Comment on above: Performed By: #### P TT, PT #### [facility] [address] [address] [address] Todd Moreno WBC 6.6 103/ul Normal 4.0-11.0 [facility] Comment on above: Performed By: #### P TT, PT #### [facility] [address] [place] [address] Dr. Todd Moreno FREE T4on 10-15-2021 Free T4 [Mass/Vol] 1.05 ng/dL Normal 0.76-1.46 [facility] Comment on above: Performed By: #### P TT, PT #### [facility] [address] [place] [address] Dr. Todd Moreno PROTIMEon 10-15-2021 INR Coag (PPP) [Relative time] 1.02 {INR} Normal [facility] Comment on above: Performed By: #### P TT, PT #### [facility] [address] [place] [address] Dr. Todd Moreno INR GUIDELINES SEE BELOW Normal [facility] Comment on above: Result Comment: RAMÓN RED INR: 2.0 - 3.0 CONDITIONS NOT LISTED BELOW 2.5 - 3.5 FOR PROSTHETIC HEART VALVE REPLACEMENT 2.5 - 3.5 RECURRENT THROMBOSIS Performed By: #### P TT, PT #### [facility] [address] [place] [address] Dr. Todd Moreno PT Coag (PPP) [Time] 11.0 s Normal 9.0-11.6 [facility] Comment on above: Performed By: #### P TT, PT #### [facility] [address] [place] [address] Dr. Todd Moreno PTTon 07-30-2022 aPTT Coag (Bld) [Time] 32.4 s Normal 22.3-36.2 [facility] Comment on above: Performed By: #### P TT, PT #### [facility] [address] [place] [address] Dr. Todd Moreno TSHon 10-15-2021 TSH 1.777 uIU/mL Normal 0.358-3.740 [facility] Comment on above: Performed By: #### P TT, PT #### [facility] [address] [place] [address] Dr. Todd Moreno PAP ACOG PANEL 2: 30 to 65on 10-10-2021 . . Normal [facility] Comment on above: Result Comment: Perf ormed at: WB Performed By: #### [id number] #### [facility] [address] [place] [address] Dr. Todd Moreno Age Gdln ACOG Testing - [facility] Comment on above: Performed By: #### [id number] #### [facility] [address] [place] [address] Dr. Todd Moreno DIAGNOSIS: Comment Normal [facility] Comment on above: Result Comment: NEGA TIVE FOR INTRAEPITHELIAL LESION OR MALIGNANCY. Performed at: WB Performed By: #### [id number] #### [facility] [address] [place] [address] Dr. Todd Moreno HPV Aptima Negative Normal Negative [facility] Comment on above: Result Comment: This nucleic acid amplification test detects fourteen high-risk HPV types (16,18,31,33,35,39,45,51,52,56,58,59,66,68) without differentiation. Performed at: =G Performed By: #### [id number] #### [facility] [address] [place] [address] Dr. Todd Moreno Methodology: Comment Normal [facility] Comment on above: Result Comment: This liquid based ThinPrep(R) pap test was screened with the use of an image guided system. Performed at: WB Performed By: #### [id number] #### [facility] [address] [place] [address] Dr. Todd Moreno Note: Comment Normal [facility] Comment on above: Result Comment: The Pap smear is a screening test designed to aid in the detection of premalignant and malignant conditions of the uterine cervix. It is not a diagnostic procedure and should not be used as the sole means of detecting cervical cancer. Both false-positive and false-negative reports do occur. . Performed at: WB Performed By: #### [id number] #### [facility] [address] [place] [address] Dr. Todd Moreno Performed by: Comment Normal [facility] Comment on above: Result Comment: Magalie Lemus, Accounting Instructor (ASCP) Performed at: WB Performed By: #### [id number] #### [facility] [address] [place] [address] Dr. Todd Moreno Specimen adequacy: Comment Normal [facility] Comment on above: Result Comment: Sati sfactory for evaluation. Endocervical and/or squamous metaplastic cells (endocervical component) are present. Performed at: WB Performed By: #### [id number] #### [facility] [address] [place] [address] Dr. Todd Moreno COVID-19 Antigenon 2 COVID-19 [...] its performance Corinne Disclaimer characteristic determined by [employer] and Corinne Disclaimer validated at [facility]. This Corinne Disclaimer test has not [...] is terminated or revoked sooner. PERFORMED BY: [place] [address] PATHOLOGIST JUNIOR SYSTEMS ENGINEER JONATHAN SHEPARD M.D. Normal [facility] Comment on above: Performed By: #### S OFIANEG, COVID-19 CORINNE #### [address] HCG,Urineon 03-30-2021 Beta HCG ( test) Ql (U) Negative Normal [facility] Comment on above: Result Comment: PERF ORMED BY: [place] [address] PATHOLOGIST JUNIOR SYSTEMS ENGINEER JONATHAN SHEPARD M.D. Performed By: #### U HCG #### [address] Corinne Ag Negativeon 03-30-19 Corinne Ag Negative Negative Normal Negative [facility] Comment on above: Result Comment: This is a duplicate Corinne SARS Antigen (KAEL) result to be used for statistical tracking purpose only. PERFORMED BY: [place] [address] PATHOLOGIST JUNIOR SYSTEMS ENGINEER JONATHAN SHEPARD M.D. Performed By: #### S OFIANEG, COVID-19 CORINNE #### [address] COVID-19 FRMCon 03-28-2021 SARS-CoV-2 (COVID-19) RNA JESE+probe Ql (Unsp spec) Negative Normal Negative [facility] Comment on above: Order Comment: Healt hcare Worker?: N Result Comment: Testing for SARS-CoV-2 by RT-PCR This test was developed and its performance characteristics determined by [employer] and validated at the [facility]. This test has not been FDA [...] is terminated or revoked sooner. PERFORMED BY: [place] [address] PATHOLOGIST JUNIOR SYSTEMS ENGINEER JONATHAN SHEPARD M.D. Performed By: #### C OVID 19 [facility] [place] #### [address] XR elbow LT 2Von 03-01-2021 XR elbow LT 2V [facility] [place] [address] [place] [address] XRay Report Signed Patient: Moira Almaguer MR#: [id number] : 1985 Acct:[id number] Age/Sex: 35 / F ADM Date: 03/01/21 Loc: [facility] [place] Room: Type: [facility] Attending Dr: Leandro Robles MD Ordering [...] Valdez Mcwilliams M.D.03/01/2021 1:47 PM Dictation Location: [place] [address] Transcribed By: HARRIET 03/01/21 1347 Dictated By: Valdez Mcwilliams DO 03/01/21 1344 Signed By: 03/01/21 1347 [facility] XR FOREARM LEFT 2 VIEWSon XR FOREARM [...] are recommended in 7 to 10 days. [facility]/[employer] Workstation ID: [id number] Dictated by: MAR DAWSON on SunSep 08, 2020 11:41:42 PM EDT Transcribed by: SHERRILL SMYTH on SunSep 09, 2020 12:10:05 AM EDT Finalized by: MAR DAWSON on SunSep 09, 2020 12:16:26 AM EDT [facility] Comment on above: Order Comment: Injur y/Trauma [...] on SunSep 08, 2020 11:42:00 PM EDT [facility] Comment on above: Order Comment: Injur y/Trauma or Illness?:Injury/Trauma How long have you had these symptoms (acute/chronic)?:Acute Reason for exam?:fall, pain to left shoulder radiating down arm History of cancer?:no Surgeries, chemotherapy, or radiation?:no Type of Exam?:Initial Mechanism of injury?:fall Vital Signs Date Time Vital Sign Value Performing Clinician Facility 02-20-2024 11:40-0500 Body mass index (BMI) [Ratio] 34.68 kg/m2 Rogers James DO Work Phone: [facility] 02-20-2024 11:40-0500 Body weight 100.43 kg Rogers James DO Work Phone: [facility] 02-20-2024 11:40-0500 Diastolic blood pressure 70 mm[Hg] Rogers James DO Work Phone: [facility] 02-20-2024 11:40-0500 Systolic blood pressure 120 mm[Hg] Rogers James DO Work Phone: [facility] 02-07-2024 11:42-0500 Body mass index (BMI) [Ratio] 34.3 kg/m2 Iveth MCGRATH Work Phone: [facility] 02-07-2024 11:42-0500 Body weight 99.34 kg Iveth MCGRATH Work Phone: [facility] 02-07-2024 11:42-0500 Diastolic blood pressure 70 mm[Hg] Iveth MCGRATH Work Phone: [facility] 02-07-2024 11:42-0500 Systolic blood pressure 118 mm[Hg] Iveth MCGRATH Work Phone: [facility] 01-10-2024 10:44-0400 Body mass index (BMI) [Ratio] 33.89 kg/m2 Rogers James DO Work Phone: [facility] 01-10-2024 10:44-0400 Body weight 98.16 kg Rogers James DO Work Phone: [facility] 01-10-2024 10:44-0400 Diastolic blood pressure 74 mm[Hg] Rogers James DO Work Phone: [facility] 01-10-2024 10:44-0400 Systolic blood pressure 120 mm[Hg] Rogers James DO Work Phone: [facility] 03-01-2021 11:00-0500 Body height 170.18 cm Leandro Robles Other [facility] 03-01-2021 11:00-0500 Body mass index (BMI) [Ratio] 30.07 kg/m2 Leandro Mckenziexa Other [facility] 03-01-2021 11:00-0500 Body weight 87.09 kg Leandro Mckenziexa Other [facility] Other Encounters Encounter Date Encounter Type Care Provider Facility Start: 02-20-2024 End: 02-20-2024 Bamboo flowsheet Rogers James DO Work Phone: [facility] Start: 02-20-2024 End: 02-20-2024 Bamboo flowsheet Rogers James DO Work Phone: [facility] Start: 02-20-2024 End: 02-20-2024 Clinisync Result Encounter Rogers James DO Work Phone: [facility] External Department Unsolicited Start: 02-20-2024 End: 02-20-2024 flow sheet Rogers James DO Work Phone: [facility] Comment on above: 29 weeks gestation o f ; Third trimester ; Diabetes mellitus screening Start: 02-07-2024 End: 02-07-2024 Bamboo flowsheet Iveth MCGRATH Work Phone: [facility] Start: 02-07-2024 End: 02-07-2024 Bamboo flowsheet Iveth Hood PA Work Phone: [facility] Start: 02-07-2024 End: 02-07-2024 ambulatory IVETH HOOD Not Available Start: 02-07-2024 End: 02-07-2024 flow sheet Iveth MCGRATH Work Phone: [facility] Comment on above: 24 weeks gestation o f ; size consistent with dates during in second trimester Start: 02-04-2024 End: 02-04-2024 ambulatory [facility] Start: 01-30-2024 End: 01-30-2024 ambulatory [facility] Start: 01-23-2024 End: 01-23-2024 Telephone encounter Emily Alfaro DO Work Phone: [facility] Start: 01-10-2024 End: 01-10-2024 flow sheet Rogers James DO Work Phone: [facility] Comment on above: Second trimester pre gnancy; 23 weeks gestation of Start: 01-10-2024 End: 01-10-2024 ambulatory ROGERS JAMES Not Available Start: 01-07-2024 End: 01-07-2024 ambulatory [facility] Start: 12-24-2023 End: 12-24-2023 ambulatory [facility] Start: 12-13-2023 End: 12-13-2023 ambulatory ROGERS JAMES Not Available Start: 11-15-2023 End: 11-15-2023 ambulatory ROGERS JAMES Not Available Start: 10-18-2023 End: 10-18-2023 ambulatory IVETH ERWIN Not Available Start: 05-21-2023 End: 05-21-2023 ambulatory IVETH ERWIN Not Available Start: 03-08-2023 End: 03-08-2023 ambulatory ROGERS JAMES Not Available Start: 02-12-2023 End: 02-12-2023 ambulatory EMILYSUKHDEV ALFARO Not Available Start: 05-30-2022 End: 05-30-[address] ROGERS RAMIREZ . Facility:[facility] Start: 03-20-2022 End: 03-21-[address] ROGERS RAMIREZ . Facility:[facility] Start: 02-24-2022 End: 02-25-[address] Facility:[facility] Start: 01-31-2022 End: 02-01-[address] ROB HINES Facility:[facility] Start: 10-15-2021 End: 10-16-[address] ROGERS RAMIREZ . Facility:[facility] Start: 10-05-2021 End: 10-05-[address] ROGERS RAMIREZ . Facility:[facility] Start: 03-01-2021 End: 03-01-2021 ambulatory Leandro Robles Other [facility] Start: 03-01-2021 Encounter for other preprocedural examination Leandro Robles [facility] Start: 03-01-2021 Office outpatient ne w 45 minutes Leandro Robles [facility] Start: 09-09-2020 End: 09-09-2020 Emergency department [facility] Procedures Date Procedure Procedure Detail Performing Clinician Start: 02-20-2024 MLR HEMOGLOBIN A1C Kim y James DO Work Phone: Start: 02-20-2024 Urnls dip stick/tabl et rgnt non-auto w/o micrscp Rogers James DO Work Phone: Start: 02-04-2024 Follow-up visit Follow-up ROB GONZALES Start: 01-10-2024 Urnls dip stick/tabl et rgnt non-auto w/o micrscp Rogers James DO Work Phone: Start: 10-05-2021 Microscopic observat ion [Identifier] in Cervix by Cyto stain Rogers James DO Work Phone: Plan of Treatment Date Care Activity Detail Author Start: 10-05-2026 Screening for malign ant neoplasm of cervix [facility] Start: 03-10-2024 End: 03-10-2024 Patient encounter procedure 03/10/2024 9:30 AM EST Routine [facility] [address] [place] [id number] Rogers Ramirez, DO [address] [place] [address] [facility] Start: 02-20-2024 End: 02-19-2025 CBC panel - Blood by Automated count CBC Lab Routine Diabetes mellitus screening Expected: 02/20/2024 (Approximate), Expires: 02/19/2025 [facility] Work Phone: Comment on above: Expected: 02/20/2024 (Approximate), Expires: 02/19/2025 Start: 02-20-2024 End: 02-20-2024 Patient encounter procedure 02/20/2024 11:00 AM EST Routine [facility] [address] [place] [id number] Rogers Ramirez, DO [address] [place] [address] [facility] Start: 02-07-2024 End: 02-06-2025 US for US OB SCAN FOR GROWTH Imaging Routine size consistent with dates during in second trimester Expected: 02/07/2024 (Approximate), Expires: 02/06/2025 [facility] Work Phone: Comment on above: Expected: 02/07/2024 (Approximate), Expires: 02/06/2025 Start: 02-07-2024 End: 02-07-2024 Patient encounter procedure 02/07/2024 11:20 AM EST Routine [facility] [address] [place] [id number] Iveth Hood PA [address] [place], [place] [id number] [facility] Start: 11-18-2023 Influenza vaccination Influenza Vacc ine (#1) [facility] Hemoglobin A1c/Hemoglobin.total in Blood Hemoglobin A1c Lab Routine Diabetes mellitus screening Ordered: 02/20/2024 [facility] Comment on above: Ordered: 02/20/2024 Immunizations Immunization Date Immunization Notes Care Provider Sarah connors 12-26-2016 influenza virus vacc graham, unspecified formulation Rogerszeina Bakero DO Work Phone: [facility] Payers Date Payer Category Payer Private Health Insurance [id number] 2021 Private Health Insurance [employer] [id number] 2019 Unknown [id number] 1985 Unknown [id number] 2.840.1.253899.3.579.2. 902 1986 Unknown [id number] 2.16840.1.280433.3.579.2. 593 1986 Unknown [id number] 2.16840.1.482815.3.579.2. 593 1986 Unknown [id number] 2.16840.1.011763.3.579.2. 593 1986 Unknown [id number] 2.16840.1.255604.3.579.2. 593 1986 Unknown [id number] 2.16.840.1.818075.3.579.2. 593 1986 Unknown [id number] 2.16.840.1.089250.3.579.2. 593 1986 Unknown [id number] 2.16.840.1.647102.3.579.2. 1286 1986 Unknown [id number] 2.16.840.1.172673.3.579.2. 1285 1986 Unknown [id number] 2.16.840.1.698478.3.579.2. 1285 1986 Unknown [id number] 2.16.840.1.648731.3.579.2. 1285 1986 Unknown [id number] 2.16.840.1.402106.3.579.2. 1258 1986 Unknown [id number] 2.16840.1.471884.3.579.2. 1258 1986 Unknown [id number] 2.16.840.1.598941.3.579.2. 1258 1986 Unknown [id number] 2.16.840.1.036622.3.579.2. 1258 1986 Unknown [id number] 2.16.840.1.345820.3.579.2. 1258 1986 Unknown [id number] 2.16.840.1.828909.3.579.2. 1258 1986 Unknown [id number] 2.16.840.1.822643.3.579.2. 1258 1986 Unknown [id number] 2.16.840.1.407215.3.579.2. 1259 1959 Self-pay 1959 Unknown [id number] 1959 Unknown [id number] 1959 Unknown [id number] Unknown [id number] 2.16840.1.643261.3.579.2. 593 Social History Date Type Detail Facility Start: 10-15-2022 End: 02-05-2023 Sex Assigned At [facility] Start: 02-12-2023 Tobacco smoking status NHIS Ex-smoke r [facility] End: 08-19-2011 History of tobacco use Current smoker [facility] End: 08-19-2011 History of tobacco use Cigarette Smoker [facility] Start: 02-12-2023 Tobacco use and exposure Smoke less tobacco non-user [facility] Start: 01-10-2024 End: 02-20-2024 Alcoholic beverage intake Ex-drinker (finding) [facility] Start: 10-15-2022 End: 02-05-2023 History of Social function [facility] Within the last year , have you been afraid of your partner or ex-partner? No [facility] Do you belong to any clubs or organizations such as jew groups, unions, fraternal or athletic groups, or school groups? Yes [facility] Are you now , , , , never or living with a partner? [facility] How often to you hav e a drink containing alcohol? Monthly or less [facility] How many standard dr inks containing alcohol do you have on a typical day? Patient does not drink [facility] How often do you hav e 6 or more drinks on 1 occasion? Never [facility] How hard is it for y ou to pay for the very basics like food, housing, medical care, and heating Somewhat hard [facility] Do you feel stress - tense, restless, nervous, or anxious, or unable to sleep at night because your mind is troubled all the time - these days [OSQ] To some extent [facility] (I/We) worried mariam er (my/our) food would run out before (I/we) got money to buy more. Never true [facility] Start: 02-10-2023 Alcohol Comment Caffeine: 1-2 cups/d ay [facility] Start: 08-11-2023 [facility] Start: 1985 Sex assigned at Female [facility] Start: 08-23-2022 Gender identity Identifies as female gender (finding) [facility] History of Present illness Narrative 02-20-2024 RAMILA Joshi - 02/20/2024 11:00 AM EST Note Date & Type Note Facility 02-20-2024 History of Presen t illness Narrative Reason for Appointment: Patient ID: Moira Starr is a 38 y.o. female who presents for Routine Visit Patient presents today for Return OB appointment. MEDICATIONS Current Outpatient Medications Medication Instructions Continuous Glucose Reprint Sorter ([employer] Adriana 2 [place]) device 1 Device, Does not apply, 4 times daily MV-Min-Fe Fum-FA-DHA ( 1 PO) Take by mouth. saccharomyces boulardii (FLORASTOR) 250 mg, 2 times daily ALLERGIES Allergies Allergen Reactions Sertraline Other Flat emotions Other Reaction(s): decreased emotional lability PROBLEMS Active Ambulatory Problems Diagnosis Date Noted Attention deficit hyperactivity disorder (ADHD) (CMS/HCC) 09/15/2022 Cervicalgia 09/15/2022 Chronic fatigue 09/15/2022 Chronic tension-type headache, not intractable 09/15/2022 Generalized anxiety disorder (CMS/HCC) 09/15/2022 HPV (human papilloma virus) infection 09/15/2022 Large breasts 09/15/2022 LGSIL on Pap smear of cervix 09/15/2022 Migraine with aura and without status migrainosus, not intractable (CMS/HCC) 09/15/2022 Missed period 09/15/2022 Moderate recurrent major depression (CMS/HCC) 09/15/2022 Other chronic pain 09/15/2022 Radicular pain 09/15/2022 Vitamin D deficiency 09/15/2022 History of miscarriage 06/22/2023 Positive urine test 06/22/2023 23 weeks gestation of 01/10/2024 Resolved Ambulatory Problems Diagnosis Date Noted No Resolved Ambulatory Problems Past Medical History: Diagnosis Date ADHD (attention deficit hyperactivity disorder) (CMS/HCC) ADHD (attention deficit hyperactivity disorder) (CMS/HCC) Ankle pain, left Anxiety with depression Epidermal inclusion cyst Fall with injury Gastro-esophageal reflux disease without esophagitis Headache History of cigarette smoking IBS (irritable bowel syndrome) Influenza Irritable bowel syndrome without diarrhea Mononucleosis syndrome Pain in thoracic spine Perennial allergic rhinitis Scoliosis Sinusitis URI (upper respiratory infection) HISTORY PAST MEDICAL HISTORY SOCIAL HISTORY Past Medical History: Diagnosis Date ADHD (attention deficit hyperactivity disorder) (CMS/HCC) ADHD (attention deficit hyperactivity disorder) (CMS/HCC) Ankle pain, left Anxiety with depression Anxiety/depression Epidermal inclusion cyst Fall with injury DOI 09/17/2013 [Fall-accidental] Gastro-esophageal reflux disease without esophagitis Headache History of cigarette smoking IBS (irritable bowel syndrome) Influenza Irritable bowel syndrome without diarrhea Mononucleosis syndrome Pain in thoracic spine Perennial allergic rhinitis Scoliosis Sinusitis URI (upper respiratory infection) Social History Tobacco Use Smoking status: Former Current packs/day: 0.00 Types: Cigarettes Quit date: 08/19/2011 Years since quittin.5 Smokeless tobacco: Never Substance Use Topics Alcohol use: Not Currently Comment: Caffeine: 1-2 cups/day Drug use: Never FAMILY HISTORY Family History Problem Relation Name Age of Onset Hypertension Mother Graciela Young Cancer Mother Graciela Young colon cancer in remission Cholelithiasis Mother Graciela Young Hypertension Father Danyel Young Other (Seasonal Allergies) Daughter Savannah ADD / ADHD Son Elias Other (Seasonal Allergies) Son Elias Hypertension Other Grandparent Color blindness Other Grandparent Diabetes Other Grandparent AODM Hyperparathyroidism Other Grandparent malignant-resected Kyphosis Other Aunt/Unlce Scheuermann Kyphosis Sibling Scheuermann Cholelithiasis Sibling Other (Other) Sibling SURGICAL HISTORY History reviewed. No pertinent surgical history. REVIEW OF SYSTEMS Review of Systems: Review of Systems Constitutional: Negative. HENT: Negative. Eyes: Negative. Respiratory: Negative. Cardiovascular: Negative. Gastrointestinal: Negative. Genitourinary: Negative. Musculoskeletal: Negative. Skin: Negative. Neurological: Negative. All other systems reviewed and are negative. Hematological: Negative. Endocrine: Negative. Allergic/Immunologic: Negative. OBJECTIVE Objective: Physical Exam Constitutional: Appearance: Normal appearance. She is normal weight. HENT: Head: Normocephalic. Cardiovascular: Rate and Rhythm: Normal rate. Pulses: Normal pulses. Pulmonary: Effort: Pulmonary effort is normal. Breath sounds: Normal breath sounds. Abdominal: Palpations: Abdomen is soft. Musculoskeletal: General: Normal range of motion. Neurological: General: No focal deficit present. Mental Status: She is alert and oriented to person, place, and time. Psychiatric: Mood and Affect: Mood normal. Behavior: Behavior normal. Thought Content: Thought content normal. Judgment: Judgment normal. Vitals and nursing note reviewed. Vitals: Estimated body mass index is 34.68 kg/m as calculated from the following: Height as of 11/27/23: 5' 7 . Weight as of this encounter: 221 lb 6.4 oz. BP: 120/70 Patient's last menstrual period was 07/28/2023. ASSESSMENT & PLAN ICD-10-CM 1. 29 weeks gestation of Z3A.29 POCT urinalysis dipstick manually resulted 2. Third trimester Z34.93 POCT urinalysis dipstick manually resulted 3. Diabetes mellitus screening Z13.1 CBC CBC Hemoglobin A1c CANCELED: Glucose tolerance, 1 hour CANCELED: Glucose tolerance, 1 hour Return OB: Patient presents today for a routine obstetrics appointment. Patient is currently 29w4d . Patient states she is doing well but has complaints of being tired due to current . Patient has verbalizes frequent movement. labor precautions was discussed/given and patient was instructed to perform kick counts three times a day. Orders Placed This Encounter Procedures CBC Hemoglobin A1c POCT urinalysis dipstick manually resulted Follow Up: Patient is to return to office in 2 week for routine OB appointment. Documented by RAMILA Joshi on behalf of: Rogers Ramirez DO documented in this encounter [facility] History of Present illness Narrative 02-07-2024 RAMILA Joshi - 02/07/2024 11:20 AM EST Note Date & Type Note Facility 02-07-2024 History of Presen t illness Narrative Reason for Appointment: Patient ID: Moira Starr is a 38 y.o. female who presents for Routine Visit Patient presents today for Return OB appointment. MEDICATIONS Current Outpatient Medications Medication Instructions Continuous Glucose Reprint Sorter (FreeStyle Adriana 2 [place]) device 1 Device, Does not apply, 4 times daily ergocalciferol (VITAMIN D2) 1.25 mg, Oral, Weekly MV-Min-Fe Fum-FA-DHA ( 1 PO) Oral saccharomyces boulardii (FLORASTOR) 250 mg, Oral, 2 times daily ALLERGIES Allergies Allergen Reactions Sertraline Other Flat emotions Other Reaction(s): decreased emotional lability PROBLEMS Active Ambulatory Problems Diagnosis Date Noted Attention deficit hyperactivity disorder (ADHD) ([facility]) 09/15/2022 Cervicalgia 09/15/2022 Chronic fatigue 09/15/2022 Chronic tension-type headache, not intractable 09/15/2022 Generalized anxiety disorder ([facility]/HCC) 09/15/2022 HPV (human papilloma virus) infection 09/15/2022 Large breasts 09/15/2022 LGSIL on Pap smear of cervix 09/15/2022 Migraine with aura and without status migrainosus, not intractable ([facility]/HCC) 09/15/2022 Missed period 09/15/2022 Moderate recurrent major depression ([facility]) 09/15/2022 Other chronic pain 09/15/2022 Radicular pain 09/15/2022 Vitamin D deficiency 09/15/2022 History of miscarriage 06/22/2023 Positive urine test 06/22/2023 23 weeks gestation of 01/10/2024 Resolved Ambulatory Problems Diagnosis Date Noted No Resolved Ambulatory Problems Past Medical History: Diagnosis Date ADHD (attention deficit hyperactivity disorder) ([facility]) ADHD (attention deficit hyperactivity disorder) ([facility]) Ankle pain, left Anxiety with depression Epidermal inclusion cyst Fall with injury Gastro-esophageal reflux disease without esophagitis Headache History of cigarette smoking IBS (irritable bowel syndrome) Influenza Irritable bowel syndrome without diarrhea Mononucleosis syndrome Pain in thoracic spine Perennial allergic rhinitis Scoliosis Sinusitis URI (upper respiratory infection) HISTORY PAST MEDICAL HISTORY SOCIAL HISTORY Past Medical History: Diagnosis Date ADHD (attention deficit hyperactivity disorder) ([facility]) ADHD (attention deficit hyperactivity disorder) ([facility]) Ankle pain, left Anxiety with depression Anxiety/depression Epidermal inclusion cyst Fall with injury DOI 09/17/2013 [Fall-accidental] Gastro-esophageal reflux disease without esophagitis Headache History of cigarette smoking IBS (irritable bowel syndrome) Influenza Irritable bowel syndrome without diarrhea Mononucleosis syndrome Pain in thoracic spine Perennial allergic rhinitis Scoliosis Sinusitis URI (upper respiratory infection) Social History Tobacco Use Smoking status: Former Current packs/day: 0.00 Types: Cigarettes Quit date: 08/19/2011 Years since quittin.4 Smokeless tobacco: Never Substance Use Topics Alcohol use: Not Currently Comment: Caffeine: 1-2 cups/day Drug use: Never FAMILY HISTORY Family History Problem Relation Name Age of Onset Hypertension Mother Graciela Young Cancer Mother Graciela Young colon cancer in remission Cholelithiasis Mother Graciela Young Hypertension Father Danyel Young Other (Seasonal Allergies) Daughter Savannah ADD / ADHD Son Elias Other (Seasonal Allergies) Son Elias Hypertension Other Grandparent Color blindness Other Grandparent Diabetes Other Grandparent AODM Hyperparathyroidism Other Grandparent malignant-resected Kyphosis Other Aunt/Unlce Scheuermann Kyphosis Sibling Scheuermann Cholelithiasis Sibling Other (Other) Sibling SURGICAL HISTORY History reviewed. No pertinent surgical history. REVIEW OF SYSTEMS Review of Systems: Review of Systems Constitutional: Negative. HENT: Negative. Eyes: Negative. Respiratory: Negative. Cardiovascular: Negative. Gastrointestinal: Negative. Genitourinary: Negative. Musculoskeletal: Negative. Skin: Negative. Neurological: Negative. All other systems reviewed and are negative. Hematological: Negative. Endocrine: Negative. Allergic/Immunologic: Negative. OBJECTIVE Objective: Physical Exam Constitutional: Appearance: Normal appearance. She is normal weight. HENT: Head: Normocephalic. Cardiovascular: Rate and Rhythm: Normal rate. Pulses: Normal pulses. Pulmonary: Effort: Pulmonary effort is normal. Breath sounds: Normal breath sounds. Abdominal: Palpations: Abdomen is soft. Musculoskeletal: General: Normal range of motion. Neurological: General: No focal deficit present. Mental Status: She is alert and oriented to person, place, and time. Psychiatric: Mood and Affect: Mood normal. Behavior: Behavior normal. Thought Content: Thought content normal. Judgment: Judgment normal. Vitals and nursing note reviewed. Vitals: Estimated body mass index is 34.3 kg/m as calculated from the following: Height as of 02/12/23: 5' 7 . Weight as of this encounter: 219 lb. BP: 118/70 Patient's last menstrual period was 07/28/2023. ASSESSMENT & PLAN ICD-10-CM 1. 24 weeks gestation of Z3A.24 2. size consistent with dates during in second trimester Z34.92 US OB SCAN FOR GROWTH Return OB: Patient presents today for a routine obstetrics appointment. Patient is currently 27w5d . Patient states she is doing well but has complaints of being tired due to current . Patient has verbalizes frequent movement. labor precautions was discussed/given and patient was instructed to perform kick counts three times a day. Orders Placed This Encounter Procedures US OB SCAN FOR GROWTH Follow Up: Patient is to return to office in 2 week for routine OB appointment. Documented by Nevaeh Peralta LPN on behalf of: RAMLIA Joshi documented in this encounter [facility] Telephone encounter Note 01-23-2024 Telephone Encounter - Keila Flores - 01/23/2024 10:53 AM EST Note Date & Type Note Facility 01-23-2024 Telephone encount er Note Endocrinology called today and asked about a referral that they received in 02/2023. She wasn't sure if they pt still needs the referral.. I told her that Dr Alfaro sent that and she is no longer here. Also, the pt hasn't been here since 01/2023. I will call the pt and see if she is still having this problem and if she is seeing another PCP or has been to a specialist for it. *update: I called pt and had to leave a message for her to call us back. If pt still needs this problem taken care of.. we will have to put her with BAKER BENCH of her choice (since she would be a returning Angelina pt) to establish care. [facility] Healthcare Note 01-23-2024 Telephone Encounter - Keila Lairdpkins - 01/23/2024 10:53 AM EST Note Date & Type Note Facility 01-23-2024 Miscellaneous Notes Formattin g of this note might be different from the original. Endocrinology called today and asked about a referral that they received in 02/2023. She wasn't sure if they pt still needs the referral.. I told her that Dr Alfaro sent that and she is no longer here. Also, the pt hasn't been here since 01/2023. I will call the pt and see if she is still having this problem and if she is seeing another PCP or has been to a specialist for it. *update: I called pt and had to leave a message for her to call us back. If pt still needs this problem taken care of.. we will have to put her with BAKER BENCH of her choice (since she would be a returning Angelina pt) to establish care. documented in this encounter [facility] History of Present illness Narrative 01-10-2024 Belen Oconnell, TRAVELING ELECTRICIAN - 01/10/2024 10:40 AM EDT Note Date & Type Note Facility 01-10-2024 History of Presen t illness Narrative Reason for Appointment: Patient ID: Moira Starr is a 38 y.o. female who presents for Routine Visit Patient presents today for Return OB appointment. MEDICATIONS Current Outpatient Medications Medication Instructions Continuous Glucose Reprint Sorter ([employer] Adriana 2 [place]) device 1 Device, Does not apply, 4 times daily Continuous Glucose Sensor misc 1 Device, Does not apply, Every 14 days ergocalciferol (VITAMIN D2) 1.25 mg, Oral, Weekly MV-Min-Fe Fum-FA-DHA ( 1 PO) Oral saccharomyces boulardii (FLORASTOR) 250 mg, Oral, 2 times daily ALLERGIES Allergies Allergen Reactions Sertraline Other Flat emotions Other Reaction(s): decreased emotional lability PROBLEMS Active Ambulatory Problems Diagnosis Date Noted Attention deficit hyperactivity disorder (ADHD) ([facility]) 09/15/2022 Cervicalgia 09/15/2022 Chronic fatigue 09/15/2022 Chronic tension-type headache, not intractable 09/15/2022 Generalized anxiety disorder ([facility]) 09/15/2022 HPV (human papilloma virus) infection 09/15/2022 Large breasts 09/15/2022 LGSIL on Pap smear of cervix 09/15/2022 Migraine with aura and without status migrainosus, not intractable ([facility]) 09/15/2022 Missed period 09/15/2022 Moderate recurrent major depression ([facility]) 09/15/2022 Other chronic pain 09/15/2022 Radicular pain 09/15/2022 Vitamin D deficiency 09/15/2022 History of miscarriage 06/22/2023 Positive urine test 06/22/2023 Resolved Ambulatory Problems Diagnosis Date Noted No Resolved Ambulatory Problems Past Medical History: Diagnosis Date ADHD (attention deficit hyperactivity disorder) ([facility]) ADHD (attention deficit hyperactivity disorder) ([facility]) Ankle pain, left Anxiety with depression Epidermal inclusion cyst Fall with injury Gastro-esophageal reflux disease without esophagitis Headache History of cigarette smoking IBS (irritable bowel syndrome) Influenza Irritable bowel syndrome without diarrhea Mononucleosis syndrome Pain in thoracic spine Perennial allergic rhinitis Scoliosis Sinusitis URI (upper respiratory infection) HISTORY PAST MEDICAL HISTORY SOCIAL HISTORY Past Medical History: Diagnosis Date ADHD (attention deficit hyperactivity disorder) (CMS/HCC) ADHD (attention deficit hyperactivity disorder) (CMS/HCC) Ankle pain, left Anxiety with depression Anxiety/depression Epidermal inclusion cyst Fall with injury DOI 09/17/2013 [Fall-accidental] Gastro-esophageal reflux disease without esophagitis Headache History of cigarette smoking IBS (irritable bowel syndrome) Influenza Irritable bowel syndrome without diarrhea Mononucleosis syndrome Pain in thoracic spine Perennial allergic rhinitis Scoliosis Sinusitis URI (upper respiratory infection) Social History Tobacco Use Smoking status: Former Current packs/day: 0.00 Types: Cigarettes Quit date: 08/19/2011 Years since quittin.4 Smokeless tobacco: Never Substance Use Topics Alcohol use: Not Currently Comment: Caffeine: 1-2 cups/day Drug use: Never FAMILY HISTORY Family History Problem Relation Name Age of Onset Hypertension Mother Graciela Young Cancer Mother Graciela Young colon cancer in remission Cholelithiasis Mother Graciela Young Hypertension Father Danyel Young Other (Seasonal Allergies) Daughter Savannah ADD / ADHD Son Elias Other (Seasonal Allergies) Son Elias Hypertension Other Grandparent Color blindness Other Grandparent Diabetes Other Grandparent AODM Hyperparathyroidism Other Grandparent malignant-resected Kyphosis Other Aunt/Unlce Scheuermann Kyphosis Sibling Scheuermann Cholelithiasis Sibling Other (Other) Sibling SURGICAL HISTORY History reviewed. No pertinent surgical history. REVIEW OF SYSTEMS Review of Systems: Review of Systems All other systems reviewed and are negative. OBJECTIVE Objective: Physical Exam Constitutional: Appearance: Normal appearance. She is well-developed. Cardiovascular: Rate and Rhythm: Normal rate and regular rhythm. Pulmonary: Effort: Pulmonary effort is normal. Breath sounds: Normal breath sounds. Abdominal: General: Bowel sounds are normal. There is no distension. Palpations: Abdomen is soft. Tenderness: There is no abdominal tenderness. There is no guarding or rebound. Musculoskeletal: General: No swelling. Normal range of motion. Right lower leg: No edema. Left lower leg: No edema. Neurological: Mental Status: She is alert and oriented to person, place, and time. Skin: General: Skin is warm and dry. Psychiatric: Mood and Affect: Mood normal. Behavior: Behavior normal. Vitals and nursing note reviewed. Exam conducted with a office cashier present. Vitals: Estimated body mass index is 33.89 kg/m as calculated from the following: Height as of 02/12/23: 5' 7 . Weight as of this encounter: 216 lb 6.4 oz. BP: 120/74 Patient's last menstrual period was 07/28/2023. ASSESSMENT & PLAN ICD-10-CM 1. Second trimester Z34.92 POCT urinalysis dipstick manually resulted 2. 23 weeks gestation of Z3A.23 Patient presents today for a routine obstetrics appointment. Patient is currently 23w5d with a Estimated Date of Delivery: 05/03/24. Patient has no complaints at this time. Patient to return to clinic in 4 weeks for routine OB appointment. Documented by Belen Oconnell LPN on behalf of: Rogers Ramirez DO documented in this encounter [facility] Evaluation note 03-01-2021 Note Date & Type Note Facility 03-01-2021 Evaluation note Encounter Date Diagnosis Assessment Notes Feb, Closed fracture of capitellum of left humerus with routine healing (ICD-10 - S42.452D) MRI reviewed with patient as healing fractures within the elbow. 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 Instructed [...] M24.022) Feb, Pre-op exam (ICD-10 - Z01.818) [facility] Other Evaluation note Note Date & Type Note Facility Evaluation note Diagnosis Second trimester state, incidental 23 weeks gestation of documented in this encounter [facility] Evaluation note Note Date & Type Note Facility Evaluation note Diagnosis 24 weeks gestation of size consistent with dates during in second trimester documented in this encounter [facility] Evaluation note Note Date & Type Note Facility Evaluation note Diagnosis 29 weeks gestation of Third trimester state, incidental Diabetes mellitus screening Screening for diabetes mellitus documented in this encounter [facility] History general Narrative - Reported Note Date & Type Note Facility History general Narrative - Reported Type Medical History ADHD [facility] Other Summary Purpose Family History No Family [...] DATE CREATED AUTHOR AUTHOR'S ORGANIZ ATION 10/06/2021 [facility] DATE CREATED AUTHOR AUTHOR'S ORGANIZ ATION 06/08/2022 [facility] DATE CREATED AUTHOR AUTHOR'S ORGANIZ ATION 02/06/2024 [facility] DATE CREATED AUTHOR AUTHOR'S ORGANIZ ATION 02/10/2024 [facility] d[facility] Specialists EPIC REASON FOR VISIT (unrecogniz ed section and content) Reason Comments Routine Visit Care Teams (unrecognized sec tion and content) [employer] Supervisor Relationship Specialty Start Date End Date Emily Alfaro DO [address] [place] [address] PCP - General Family Medicine 09/14/22 [employer] Supervisor Relationship Specialty Start Date End Date Emily Alfaro DO [address] [place] [address] PCP - General Family Medicine 09/14/22 [employer]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 09/14/22 FOR RECORDS PERTAINING TO PATIENTS WHO ARE [...] BE BASED ON THE PRIMARY CLINICAL RECORDS. [facility] [employer] [facility]. provides no warranty or guarantee of the accuracy or completeness of information in this document.
== END 2024-02-21 17:01 | disposition home or self-care (01) ==
LOC: US 17:01
PROVIDERS: PCP Family Medicine; Visit Provider Obstetrics & Gynecology
DX: O26.843 Uterine size-date discrepancy, third trimester (principal); Z3A.29 29 weeks gestation of pregnancy
CPT/HCPCS: 76816

== ENCOUNTER 2024-03-15 06:57 | Outpatient (OUT) | payer OTHER, SELFPAY ==
--- NOTE | 2024-03-15 | US_ITS ---
[address] [address] Patient Name: DANYELL ROSENBERG MRN: [id number] date: 1985 Sex: F Assigned Patient Location: [facility] Current Patient Location: Accession/Order Number: [id number] Exam Date: 03/15/2024 08:12 Report Date: 03/17/2024 16:29 At the request of: MANJIT MARTÍNEZ Procedure: US OB BPP w non-stress EXAMINATION: US OB BPP w non-stress HISTORY:History of gestational diabetes Z86.32 COMPARISON: Ultrasound OB growth 02/21/2024 TECHNIQUE: Ultrasound biophysical profile was performed in the radiology department. BREATHING MOVEMENTS: 2 GROSS BODY MOVEMENTS: 2 TONE: 2 QUALITATIVE AMNIOTIC FLUID VOLUME: 2 PRESENTATION: CEPHALIC HEART RATE: 142.86 bpm AMNIOTIC FLUID VOLUME: 13.38 cm GESTATIONAL AGE: 33 weeks 0 days US/US OB BPP w non-stress IMPRESSION: Total biophysical profile score: 8 Electronically authenticated by: HALEY RABAGO Date: 03/17/2024 16:29
--- OUTSIDE RECORDS SUMMARY | 2024-03-15 07:01 | XMS_ITS | CCD ---
Author Organization [facility] CliniSyor Care Team Providers Care Animal Care Assistant Name Role Phone HUBER LUNDBERG Attending Unavailable [...] Unavailable JAMES ., DR MCCLOUD Admitting Unavailable DALLAS, DR CARIDAD [employer] Unavailable JAMES ., [...] Angelina DO, Emily G Primary Care Provider [phone] SRIDEVI FREITAS Attending Unavailable ANGELINA, EMILY G [...] Primary Care Unavailable IVETH HOOD Attending Unavailable JAMES, ROGERS Attending Unavailable JAMES, ROGERS Attending Unavailable JAMES, ROGERS Attending Unavailable IVETH HOOD Attending Unavailable JAMES, ROGERS Attending Unavailable JAMES, ROGERS Attending Unavailable Allergies Allergy Classification Reported Allergen(s) Allergy Type Date of Onset Reaction(s) Facility (20 sources) Sertraline Drug Allergy 08-10-2022 Other NOMS [...] Orally Twice a day Active Continuous Glucose Bottler Helper (FreeStyle Adriana 2 [place]) device (20 sources) Start: 11-15-2023 Continuous Glucose Bottler Helper (FreeStyle Adriana 2 [place]) device Indications: History of gestational diabetes 1 Device in the morning and 1 Device at noon and 1 Device in the evening and 1 Device before bedtime. 1 each 11/15/2023 Active Continuous Glucose Sensor (FreeStyle Adriana 2 Plus Sensor) [facility] [place] sources[place] Start: 03-10-2024 End: 04-09-2024 Continuous Glucose Sensor (FreeStyle Adriana 2 Plus Sensor) [facility] [place] Indications: History of gestational diabetes 1 Units every 14 (fourteen) days 2 each 3 03/10/2024 04/09/2024 Active ergocalciferol 1.25 mg oral capsule (15 sources) Provitamin D2 Compound Start: 02-14-2023 End: 02-14-2024 take 1 capsule by mouth every week ergocalciferol (Vitamin D2) 1.25 MG (14505 UT) capsule Indications: Vitamin D deficiency Take [...] the morning Orally Once a day Active polysaccharide iron complex 391 mg oral capsule (2 sources) Start: 03-10-2024 End: 04-09-2024 take 1 capsule by mouth once daily iron polysaccharides (ProFe) 391.3 (180 Fe) MG capsule Indications: Anemia, unspecified type Take 1 capsule (391.3 mg) by mouth Daily 30 capsule 6 03/10/2024 04/09/2024 Active MV-Min-Fe Fum-FA-DHA ( 1 PO) (20 sources) MV-Min- Fe Fum-FA-DHA ( 1 PO) Take by mouth. Active saccharomyces boulardii 250 mg oral capsule (20 sources) take 1 capsule by mouth in the morning saccharomyces boulardii (Florastor) 250 MG capsule Take 250 mg by mouth in the morning and 250 mg before bedtime. Active Completed/Discontinued Medications Medication Drug Class(es) Dates Sig (Normalized) Sig (Original) Continuous Glucose Sensor misc (6 sources) Start: 12-13-2023 End: 01-12-2024 Continuous Glucose Sensor misc Indications: Elevated glucose 1 Device every 14 (fourteen) days 2 Device 8 12/13/2023 01/12/2024 Start: 12-13-2023 End: 01-12-2024 Continuous Glucose Sensor mi ga Indications: Elevated glucose 1 Device every 14 (fourteen) days 2 Device 8 12/13/2023 01/12/2024 Active Problems Active Problems Problem Classification Problem Date Documented Date Episodic/Chronic Anxiety disorders (20 sources) Generalized anxiety disorder; Translations: [Generalized anxiety disorder] Onset: 06-29-2020 09-15-2022 Chronic Attention-deficit, conduct, and disruptive behavior disorders (20 sources) Attention deficit hyperactivity disorder; Translations: [Attention-deficit hyperactivity disorder, unspecified type] Onset: 09-15-2022 09-15-2022 Chronic Deficiency and other anemia (2 sources) Anemia; Translations: [Anemia, unspecified] 03-10-2024 Episodic Diabetes mellitus without complication (2 sources) Increased glucose level; Translations: [Other abnormal glucose] 12-13-2023 Episodic Diabetes or abnormal glucose tolerance complicating ; childbirth; or the puerperium (4 sources) History of gestational diabetes mellitus; Translations: [Personal history of gestational diabetes] 11-15-2023 Episodic Disorders usually diagnosed in infancy, childhood, or [...] Chronic Immunizations and screening for infectious disease (7 sources) Encounter for screening for infections with a predominantly sexual mode of transmission; Translations: [Encounter for screening for human papillomavirus (HPV)] Onset: 10-06-2021 Episodic Malaise and fatigue (20 sources) Fatigue; Translations: [Chronic fatigue, unspecified] Onset: 09-15-2022 09-15-2022 Chronic Menstrual disorders (20 sources) Irregular menstruation, unspecified; Translations: [Excessive and frequent menstruation with regular cycle] Onset: 10-15-2021 Chronic Mood disorders (20 sources) Moderate recurrent major depression; Translations: [Major depressive disorder, recurrent, moderate] Onset: 09-15-2022 09-15-2022 Chronic Nutritional deficiencies (20 sources) Vitamin D deficiency; Translations: [Vitamin D deficiency, unspecified] Onset: 09-15-2022 09-15-2022 Chronic Other female genital disorders (1 source) Other specified noninflammatory disorders of vagina; Translations: [OTH SPEC NONINFLAMMATORY D/O VAGINA] Onset: 06-05-2022 Episodic Other female genital disorders (2 sources) Vaginal discharge; Translations: [Other specified noninflammatory disorders of vagina] 12-13-2023 Episodic Other nervous system disorders (20 sources) Chronic pain; Translations: [Other chronic pain] [...] conditions (not mental disorders or infectious disease) (11 sources) Encounter for other screening for genetic and chromosomal anomalies; Translations: [Encounter for screening for malignant neoplasm of cervix] Onset: 10-05-2021 Episodic Residual codes; unclassified (15 sources) Gestation period, 23 weeks; Translations: [23 weeks gestation of ] Onset: 01-10-2024 01-10-2024 Episodic Residual codes; unclassified (2 sources) Gestation period, 24 weeks; Translations: [24 weeks gestation of ] 02-07-2024 Episodic Residual codes; unclassified (2 sources) Gestation period, 29 weeks; Translations: [29 weeks gestation of ] 02-20-2024 Episodic Residual codes; unclassified (2 sources) Gestation period, 19 weeks; Translations: [19 weeks gestation of ] 12-13-2023 Episodic Residual codes; unclassified (5 sources) Gestation period, 32 weeks; Translations: [32 weeks gestation of ] Onset: 03-10-2024 03-10-2024 Episodic Unclassified (2 sources) LOW BACK PAIN, UNSPECIFIED; Translations: [LOW BACK PAIN, UNSPECIFIED] Onset: 02-02-2022 Unclassified (1 source) BH Diagnostic Assessment Onset: 01-07-2024 Past or Other Problems Problem Classification Problem Date Documented Date Episodic/Chronic Abdominal pain (1 source) Pelvic and perineal pain; Translations: [PELVIC AND PERINEAL PAIN] Onset: 02-02-2022 Episodic Cancer of cervix (20 sources) Low grade squamous intraepithelial lesion on [...] 03-01-2021 Resolved: 03-01-2021 Episodic Nonmalignant breast conditions (20 sources) Large breast; Translations: [Hypertrophy of breast] [...] ] Onset: 02-02-2022 Episodic Residual codes; unclassified (20 sources) H/O: miscarriage; Translations: [Personal history of [...] NOT SPECIFIED] Onset: 02-02-2022 Episodic Viral infection (20 sources) Human papilloma virus infection; Translations: [Papillomavirus as the cause of diseases classified elsewhere] Onset: 09-15-2022 09-15-2022 Episodic Results Test Name Value Interpretation Reference Range Facility Urinalysis macro (dipstick) panel (U)on 03-10-2024 Bilirubin, UA Positive Negative - 4(70) +++ mg/dL [facility] Comment on above: small Blood, UA Negative Negative - 50 Andrew/mcL [facility] Clarity, UA Clear [facility] Color, UA Yellow [facility] Glucose, UA Negative Negative - 1999(110) ++++ mg/dL [facility] Interpretation and review of laboratory results Abnormal [facility] Ketones, UA Positive Negative - 160(16) ++++ mg/dL [facility] Comment on above: trace Leukocytes, UA Negative Negative - 500+++ Lore/mcL [facility] Nitrite, UA Negative Negative - Positive [facility] pH, UA 6 5 - 9 [facility] Protein, UA Positive Negative - 1999(20) ++++ mg/dL [facility] Comment on above: 30 Spec Grav, UA 1.025 1 - 1.03 [facility] Urobilinogen, UA 1.0 0.2 - 12 mg/dL [facility] MLR HEMOGLOBIN A1Con 024 Glucose [Mass/Vol] 114 mg/dL [facility] HbA1c (Bld) [Mass fraction] 5.6 % 4.5 - 6.2 % [facility] Comment on above: ADA RECOMMENDED LIMI T 4.0 - 6.0 ADA THERAPEUTIC TARGET < 7.0 ACTION SUGGESTED > 7.0 [facility] Urinalysis macro (dipstick) panel (U)on 02-20-2024 Bilirubin, UA Positive Negative - 4(70) +++ mg/dL [facility] Comment on above: small Blood, UA Negative Negative - 50 Andrew/mcL [facility] Clarity, UA Clear [facility] Color, UA Yellow [facility] Glucose, UA Negative Negative - 1999(110) ++++ mg/dL [facility] Interpretation and review of laboratory results Abnormal [facility] Ketones, UA Positive Negative - 160(16) ++++ mg/dL [facility] Comment on above: trace Leukocytes, UA Negative Negative - 500+++ Lore/mcL [facility] Nitrite, UA Negative Negative - Positive [facility] pH, UA 6 5 - 9 [facility] Protein, UA Trace Negative - 1999(20) ++++ mg/dL [facility] Spec Grav, UA 1.03 1 - 1.03 [facility] Urobilinogen, UA 1.0 0.2 - 12 mg/dL [facility] Urinalysis macro (dipstick) panel (U)on 01-10-2024 Bilirubin, UA Negative Negative - 4(70) +++ mg/dL [facility] Blood, UA Negative Negative - 50 Andrew/mcL [facility] Clarity, UA Clear [facility] Color, UA Yellow [facility] Glucose, UA Negative Negative - 1999(110) ++++ mg/dL [facility] Interpretation and review of laboratory results Normal [facility] Ketones, UA Negative Negative - 160(16) ++++ mg/dL [facility] Leukocytes, UA Negative Negative - 500+++ Lore/mcL [facility] Nitrite, UA Negative Negative - Positive [facility] pH, UA 5.5 5 - 9 [facility] Protein, UA Negative Negative - 1999(20) ++++ mg/dL [facility] Spec Grav, UA 1.02 1 - 1.03 [facility] Urobilinogen, UA 1.0 0.2 - 12 mg/dL [facility] URETHRITIS/DISCHARGE PLUS VA GINITIS (HTRX)on 12-14-2023 ATOPOBIUM VAGINAE 0.000 [facility] ATOPOBIUM VAGINAE Not detected [facility] BVAB 2,3 (BACTERIAL VAGINOSIS ASSOCIATED BACTERIA 2, 3); MOBILUNCUS SPP 26.743 Abnormal [facility] BVAB 2,3 (BACTERIAL VAGINOSIS ASSOCIATED BACTERIA 2, 3); MOBILUNCUS SPP Detected Abnormal [facility] TATYANA ALBICANS, PARAPSILOSIS, TROPICALIS 0.000 [facility] TATYANA ALBICANS, PARAPSILOSIS, TROPICALIS Not detected [facility] TATYANA GLABRATA 0.000 [facility] TATYANA GLABRATA Not detected [facility] TATYANA KRUSEI 0.000 [facility] TATYANA KRUSEI Not detected [facility] CHLAMYDIA TRACHOMATIS 0.000 [facility] CHLAMYDIA TRACHOMATIS Not detected [facility] GARDNERELLA VAGINALIS 0.000 [facility] GARDNERELLA VAGINALIS Not detected [facility] Interpretation and review of laboratory results Abnormal [facility] MEGASPHAERA (TYPES 1, 2) 0.000 [facility] MEGASPHAERA (TYPES 1, 2) Not detected [facility] MYCOPLASMA GENITALIUM 0.000 [facility] MYCOPLASMA GENITALIUM Not detected [facility] NEISSERIA GONORRHOEAE 0.000 [facility] NEISSERIA GONORRHOEAE Not detected [facility] TRICHOMONAS VAGINALIS 0.000 [facility] TRICHOMONAS VAGINALIS Not detected [facility] Urinalysis macro (dipstick) panel (U)on 12-13-2023 Bilirubin, UA Negative Negative - 4(70) +++ mg/dL [facility] Blood, UA Negative Negative - 50 Andrew/mcL [facility] Clarity, UA Clear [facility] Color, UA Yellow [facility] Glucose, UA Negative Negative - 1999(110) ++++ mg/dL [facility] Interpretation and review of laboratory results Abnormal [facility] Ketones, UA Positive Negative - 160(16) ++++ mg/dL [facility] Comment on above: trace Leukocytes, UA Negative Negative - 500+++ Lore/mcL [facility] Nitrite, UA Negative Negative - Positive [facility] pH, UA 6.5 5 - 9 [facility] Protein, UA Negative Negative - 1999(20) ++++ mg/dL [facility] Spec Grav, UA 1.025 1 - 1.03 [facility] Urobilinogen, UA 1.0 0.2 - 12 mg/dL [facility] Urinalysis macro (dipstick) panel (U)on 11-15-2023 Bilirubin, UA Negative Negative - 4(70) +++ mg/dL [facility] Blood, UA Negative Negative - 50 Andrew/mcL [facility] Clarity, UA Clear [facility] Color, UA Yellow [facility] Glucose, UA Negative Negative - 1999(110) ++++ mg/dL [facility] Interpretation and review of laboratory results Normal [facility] Ketones, UA Negative Negative - 160(16) ++++ mg/dL [facility] Leukocytes, UA Negative Negative - 500+++ Lore/mcL [facility] Nitrite, UA Negative Negative - Positive [facility] pH, UA 5.5 5 - 9 [facility] Protein, UA Negative Negative - 1999(20) ++++ mg/dL [facility] Spec Grav, UA 1.020 1 - 1.03 [facility] Urobilinogen, UA 1.0 0.2 - 12 mg/dL [facility] ALL CBC WITH AUTO DIFFon BASOPHILS ABSOLUTE AUTO 0.0 [facility] Basophils/100 WBC (Bld) 0.4 % 0.2 - 2.0 % [facility] Eosinophils/100 WBC (Bld) 3.0 % 0.9 - 7.0 % [facility] Erythrocyte distribution width (RBC) [Ratio] 16.1 % High 11.0 - 15.0 % [facility] Hematocrit (Bld) [Volume fraction] 36.3 % 36.0 - 48.0 % [facility] Hemoglobin (Bld) [Mass/Vol] 11.4 g/dL Low 12.0 - 16.0 g/dL [facility] IMMATURE GRANULOCYTES ABS AUTO 0.03 [facility] Immature granulocytes/100 WBC (Bld) 0.3 % 0.0 - 0.5 % [facility] Interpretation and review of laboratory results Abnormal [facility] LYMPHOCYTES ABSOLUTE AUTO 2.2 [facility] Lymphocytes/100 WBC (Bld) 23.6 % 20.5 - 60.0 % [facility] MCH (RBC) [Entitic mass] 26.0 pg Low 26.7 - 34.0 pg [facility] MCHC (RBC) [Mass/Vol] 31.4 g/dL 29.9 - 35.2 g/dL [facility] MCV (RBC) [Entitic vol] 82.9 fL 81.0 - 99.0 fL [facility] MONOCYTES ABSOLUTE AUTO 0.5 [facility] Monocytes/100 WBC (Bld) 5.1 % 1.7 - 12.0 % [facility] NEUTROPHILS ABSOLUTE AUTO 6.2 [facility] Neutrophils/100 WBC (Bld) 67.6 % 43.0 - 75.0 % [facility] Platelet mean volume (Bld) [Entitic vol] 11.0 fL 9.5 - 13.5 fL [facility] EO # 0.3 [facility] PLT 271 [facility] RBC 4.38 [facility] WBC 9.2 [facility] Cytology Cervical or vaginal smear or scraping studyon 03-08-2023 [facility] CHLAMYDIA/GONOCOCCUS JESE ( AB/URINE/PAPon 06-01-2022 Chlamydia trachomatis, JESE Negative Normal Negative [facility] Comment on above: Performed By: #### P TT, PT #### [facility] [address] [place] [address] Dr. Todd Moreno Neisseria gonorrhoeae, JESE Negative Normal Negative [facility] Comment on above: Performed By: #### P TT, PT #### [facility] [address] [address] [address] Todd Moreno VAGINITIS/VAGINOSIS DNA PROB Shaheed 06-01-2022 Tatyana species Negative Normal Negative [facility] Comment on above: Performed By: #### P TT, PT #### [facility] [address] [place] [address] Dr. Todd Moreno Gardnerella vaginalis Negative Normal Negative [facility] Comment on above: Performed By: #### P TT, PT #### [facility] [address] [place] [address] Dr. Todd Moreno Trichomonas vaginalis Negative Normal Negative [facility] Comment on above: Performed By: #### P TT, PT #### [facility] [address] [place] [address] Dr. Todd Moreno HEP B SURFACE ANTIGEN SCREEN on 03-22-2022 HBsAg Screen Negative Normal Negative [facility] Comment on above: Performed By: #### H BSANS #### [facility] [address] [place] [address] Dr. Todd Moreno HEPATITIS C VIRUS AB W/ REFL EX QUANTon 03-22-2022 HCV AB 0.1 s/co ratio Normal 0.0-0.9 [facility] Comment on above: Performed By: #### P TT, PT #### [facility] [address] [place] [address] Dr. Todd Moreno Interpretation: Comment Normal [facility] Comment on above: Result Comment: Nega tive Not infected with HCV, unless recent infection is suspected or other evidence exists to indicate HCV infection. Performed By: #### P TT, PT #### [facility] [address] [place] [address] Dr. Todd Moreno HIV 1 AND 2 WITH REFLEXon HIV Screen 4th Generation wRfx Non-Reactive Normal Non Reactive [facility] Comment on above: Result Comment: HIV Negative HIV-1/HIV-2 antibodies and HIV-1 p24 antigen were NOT detected. There is no laboratory evidence of HIV infection. Performed By: #### H IV12 #### [facility] [address] [place] [address] Dr. Todd Moreno RPR QUANTon 03-22-2022 Rapid Plasma Reagin, Quant Non-Reactive Normal NonRea<1:1 [facility] Comment on above: Result Comment: Luis E dias Note: This test does not meet current guidelines for screening and diagnosis of syphilis. This test is intended for following treatment response in patients being treated for syphilis infection. To screen for syphilis infection, a reflex cascade that includes both RPR and a treponema-specific assay should be utilized, such as Treponema pallidum (Syphilis) Screening Kane (141410) or Rapid Plasma Reagin (RPR) Test With Reflex to Quantitative RPR and Confirmatory Treponema pallidum Antibodies (089890). Performed By: #### R PRQ #### [facility] [address] [place] [address] Dr. Todd Moreno RUBELLA AB IGGon 03-22-2022 Rubella Antibodies, IgG 5.11 index Normal Immune >0.99 [facility] Comment on above: Result Comment: Non- immune <0.90 Equivocal 0.90 - 0.99 Immune >0.99 Performed By: #### R PRQ #### [facility] [address] [place] [address] Dr. Todd Moreno CBC AUTO DIFFon 03-20-2022 BASO # 0.0 103/ul Normal 0.0-0.1 [facility] Comment on above: Performed By: #### P TT, PT #### [facility] [address] [place] [address] Dr. Todd Moreno Basophils/100 WBC (Bld) 0.3 % Normal 0.2-2.[address] [facility] Comment on above: Performed By: #### P TT, PT #### [facility] [address] [place] [address] Dr. Todd Moreno EO # 0.1 103/ul Normal 0.0-0.[address] [facility] Comment on above: Performed By: #### P TT, PT #### [facility] [address] [place] [address] Dr. Todd Moreno Eosinophils/100 WBC (Bld) 1.0 % Normal 0.9-7.0 [facility] Comment on above: Performed By: #### P TT, PT #### [facility] [address] [place] [address] Dr. Todd Moreno Erythrocyte distribution width (RBC) [Ratio] 14.4 % Normal 11.0-15.0 [facility] Comment on above: Performed By: #### P TT, PT #### [facility] [address] [place] [address] Dr. Todd Moreno Hematocrit (Bld) [Volume fraction] 38.2 % Normal 36.0-48.0 [facility] Comment on above: Performed By: #### P TT, PT #### [facility] [address] [place] [address] Dr. Todd Moreno Hemoglobin (Bld) [Mass/Vol] 12.2 g/dL Normal 12.0-16.0 [facility] Comment on above: Performed By: #### P TT, PT #### [facility] [address] [place] [address] Dr. Todd Moreno IG # 0.03 10e3/ul Normal 0.00-0.03 [facility] Comment on above: Performed By: #### P TT, PT #### [facility] [address] [place] [address] Dr. Todd Moreno IG % 0.3 % Normal 0.0-0.5 [facility] Comment on above: Performed By: #### P TT, PT #### [facility] [address] [place] [address] Dr. Todd Moreno LYMPH # 1.9 103/ul Normal 1.2-3.8 [facility] Comment on above: Performed By: #### P TT, PT #### [facility] [address] [place] [address] Dr. Todd Moreno Lymphocytes/100 WBC (Bld) 19.0 % Critically low 20.5-60.0 [facility] Comment on above: Performed By: #### P TT, PT #### [facility] [address] [place] [address] Dr. Todd Moreno MANUAL DIFF REQ NO Normal [facility] Comment on above: Performed By: #### P TT, PT #### [facility] [address] [place] [address] Dr. Todd Moreno MCH (RBC) [Entitic mass] 26.1 pg Critically low 26.7-34.0 [facility] Comment on above: Performed By: #### P TT, PT #### [facility] [address] [place] [address] Dr. Todd Moreno MCHC (RBC) [Mass/Vol] 31.9 g/dL Normal 29.9-35.2 [facility] Comment on above: Performed By: #### P TT, PT #### [facility] [address] [place] [address] Dr. Todd Moreno MCV (RBC) [Entitic vol] 81.6 fL Normal 81.0-99.0 [facility] Comment on above: Performed By: #### P TT, PT #### [facility] [address] [place] [address] Dr. Todd Moreno MONO # 0.4 103/ul Normal 0.3-0.8 [facility] Comment on above: Performed By: #### P TT, PT #### [facility] [address] [place] [address] Dr. Todd Moreno Monocytes/100 WBC (Bld) 4.4 % Normal 1.7-12.0 [facility] Comment on above: Performed By: #### P TT, PT #### [facility] [address] [place] [address] Dr. Todd Moreno NEUT # 7.5 103/ul Critically high 1.4-6.[address] [facility] Comment on above: Performed By: #### P TT, PT #### [facility] [address] [place] [address] Dr. Todd Moreno Neutrophils/100 WBC (Bld) 75.0 % Normal 43.0-75.0 [facility] Comment on above: Performed By: #### P TT, PT #### [facility] [address] [place] [address] Dr. Todd Moreno Platelet mean volume (Bld) [Entitic vol] 10.4 fL Normal 9.5-13.5 [facility] Comment on above: Performed By: #### P TT, PT #### [facility] [address] [place] [address] Dr. Todd Moreno PLT 302 103/ul Normal 150-[address] [facility] Comment on above: Performed By: #### P TT, PT #### [facility] [address] [place] [address] Dr. Todd Moreno RBC 4.68 106/ul Normal 4.20-5.40 [facility] Comment on above: Performed By: #### P TT, PT #### [facility] [address] [place] [address] Dr. Todd Moreno WBC 10.1 103/ul Normal 4.0-11.0 [facility] Comment on above: Performed By: #### P TT, PT #### [facility] [address] [place] [address] Dr. Todd Moreno CULTURE URINEon 03-20-2022 CULTURE URINE Culture Observations : MODERATE GROWTH OF MIXED GENITAL LORA. NO POTENTIAL PATHOGENS SEEN. Normal [facility] Comment on above: Performed By: #### P TT, PT #### [facility] [address] [place] [address] Dr. Todd Moreno GLYCOHEMOGLOBIN A1Con 2022 ADA RECOMMENDATION SEE BELOW Normal [facility] Comment on above: Result Comment: ADA RECOMMENDED LIMIT 4.0 - 6.0 ADA THERAPEUTIC TARGET < 7.0 ACTION SUGGESTED > 7.0 Performed By: #### A 1C #### [facility] [address] [place] [address] Dr. Todd Moreno Glucose [Mass/Vol] 105 mg/dL Normal [facility] Comment on above: Performed By: #### A 1C #### [facility] [address] [place] [address] Dr. Todd Moreno HbA1c (Bld) [Mass fraction] 5.3 % Normal 4.5-6.2 [facility] Comment on above: Performed By: #### A 1C #### [facility] [address] [address] [address] Todd Moreno BENJAMIN BOX TEST PT SEND OUTo n 03-20-2022 SENT TO REF LAB 03/20/2022 Normal [facility] Comment on above: Performed By: #### P TT, PT #### [facility] [address] [place], [place] [address] Dr. Todd Moreno TYPE AND SCREENon 03-20-2022 TYPE AND SCREEN Negative Normal [facility] Comment on above: Performed By: #### P TT, PT #### [facility] [address] [place], [place] [address] Dr. Todd Moreno US PREG TVon 02-24-2022 [...] by: CARIDAD DOBSON Date: 2022-02-24 16:16 Normal [facility] CULTURE URINEon 02-03-2022 CULTURE URINE Isolate [...] S F Normal [facility] Comment on above: Performed By: #### P TT, PT #### [facility] [address] [address] [address] Todd Moreno US PREG TVon 02-01-2022 [...] 2022-01-31 22:05 Normal [facility] CBC AUTO DIFFon 01-31-2022 BASO # 0.1 103/ul Normal 0.0-0.[address] [facility] Comment on above: Performed By: #### P TT, PT #### [facility] [address] [address] [address] Todd Moreno Basophils/100 WBC (Bld) 0.8 % Normal 0.2-2.[address] [facility] Comment on above: Performed By: #### P TT, PT #### [facility] [address] [place] [address] Dr. Todd Moreno EO # 0.5 103/ul Normal 0.0-0.[address] [facility] Comment on above: Performed By: #### P TT, PT #### [facility] [address] [place] [address] Dr. Todd Moreno Eosinophils/100 WBC (Bld) 5.4 % Normal 0.9-7.[address] [facility] Comment on above: Performed By: #### P TT, PT #### [facility] [address] [place] [address] Dr. Todd Moreno Erythrocyte distribution width (RBC) [Ratio] 15.0 % Normal 11.0-15.[address] [facility] Comment on above: Performed By: #### P TT, PT #### [facility] [address] [place] [address] Dr. Todd Moreno Hematocrit (Bld) [Volume fraction] 34.3 % Critically low 36.0-48.[address] [facility] Comment on above: Performed By: #### P TT, PT #### [facility] [address] [place] [address] Dr. Todd Moreno Hemoglobin (Bld) [Mass/Vol] 11.2 g/dL Critically low 12.0-16.[address] [facility] Comment on above: Performed By: #### P TT, PT #### [facility] [address] [place] [address] Dr. Todd Moreno IG # 0.02 10e3/ul Normal 0.00-0.[address] [facility] Comment on above: Performed By: #### P TT, PT #### [facility] [address] [place] [address] Dr. Todd Moreno IG % 0.2 % Normal 0.0-0.[address] [facility] Comment on above: Performed By: #### P TT, PT #### [facility] [address] [place] [address] Dr. Todd Moreno LYMPH # 2.7 103/ul Normal 1.2-3.[address] [facility] Comment on above: Performed By: #### P TT, PT #### [facility] [address] [place] [address] Dr. Todd Moreno Lymphocytes/100 WBC (Bld) 29.9 % Normal 20.5-60.0 [facility] Comment on above: Performed By: #### P TT, PT #### [facility] [address] [place] [address] Dr. Todd Moreno MANUAL DIFF REQ NO Normal [facility] Comment on above: Performed By: #### P TT, PT #### [facility] [address] [place] [address] Dr. Todd Moreno MCH (RBC) [Entitic mass] 26.7 pg Normal 26.7-34.[address] [facility] Comment on above: Performed By: #### P TT, PT #### [facility] [address] [place] [address] Dr. Todd Moreno MCHC (RBC) [Mass/Vol] 32.7 g/dL Normal 29.9-35.[address] [facility] Comment on above: Performed By: #### P TT, PT #### [facility] [address] [place] [address] Dr. Todd Moreno MCV (RBC) [Entitic vol] 81.7 fL Normal 81.0-99.0 [facility] Comment on above: Performed By: #### P TT, PT #### [facility] [address] [place] [address] Dr. Todd Moreno MONO # 0.5 103/ul Normal 0.3-0.[address] [facility] Comment on above: Performed By: #### P TT, PT #### [facility] [address] [place] [address] Dr. Todd Moreno Monocytes/100 WBC (Bld) 5.7 % Normal 1.7-12.[address] [facility] Comment on above: Performed By: #### P TT, PT #### [facility] [address] [place] [address] Dr. Todd Moreno NEUT # 5.2 103/ul Normal 1.4-6.[address] [facility] Comment on above: Performed By: #### P TT, PT #### [facility] [address] [place] [address] Dr. Todd Moreno Neutrophils/100 WBC (Bld) 58.0 % Normal 43.0-75.0 [facility] Comment on above: Performed By: #### P TT, PT #### [facility] [address] [place] [address] Dr. Todd Moreno Platelet mean volume (Bld) [Entitic vol] 10.4 fL Normal 9.5-13.5 [facility] Comment on above: Performed By: #### P TT, PT #### [facility] [address] [place] [address] Dr. Todd Moreno PLT 270 103/ul Normal 150-450 [facility] Comment on above: Performed By: #### P TT, PT #### [facility] [address] [place] [address] Dr. Todd Moreno RBC 4.20 106/ul Normal 4.20-5.40 [facility] Comment on above: Performed By: #### P TT, PT #### [facility] [address] [place] [address] Dr. Todd Moreno WBC 9.1 103/ul Normal 4.0-11.0 [facility] Comment on above: Performed By: #### P TT, PT #### [facility] [address] [place] [address] Dr. Todd Moreno ER URINE PROFILEon 2 Bilirubin Ql (U) Negative Normal NEGATIVE [facility] Comment on above: Performed By: #### P TT, PT #### [facility] [address] [place] [address] Dr. Todd Moreno Clarity (U) CLEAR Normal CLEAR [facility] Comment on above: Performed By: #### P TT, PT #### [facility] [address] [place] [address] Dr. Todd Moreno Color (U) YELLOW Normal YELLOW [facility] Comment on above: Performed By: #### P TT, PT #### [facility] [address] [place] [address] Dr. Todd SALINAS A micrscopic examination will be performed if indicated. Normal [facility] Comment on above: Performed By: #### P TT, PT #### [facility] [address] [address] [address] Todd Moreno Glucose Ql (U) Negative Normal NEGATIVE [facility] Comment on above: Performed By: #### P TT, PT #### [facility] [address] [place] [address] Dr. Todd Moreno Hemoglobin Ql (U) TRACE-INTACT Abnormal NEGATIVE [facility] Comment on above: Performed By: #### P TT, PT #### [facility] [address] [place] [address] Dr. Todd Moreno Ketones Ql (U) Negative Normal NEGATIVE [facility] Comment on above: Performed By: #### P TT, PT #### [facility] [address] [place] [address] Dr. Todd Moreno LEUKOCYTES SMALL Abnormal NEGATIVE [facility] Comment on above: Performed By: #### P TT, PT #### [facility] [address] [place] [address] Dr. Todd Moreno Nitrite Ql (U) Negative Normal NEGATIVE [facility] Comment on above: Performed By: #### P TT, PT #### [facility] [address] [place] [address] Dr. Todd Moreno pH (U) 6.5 [pH] Normal 5-9 [facility] Comment on above: Performed By: #### P TT, PT #### [facility] [address] [place] [address] Dr. Todd Moreno SPEC GRAVITY 1.015 Normal 1.005-<=1.[address] [facility] Comment on above: Performed By: #### P TT, PT #### [facility] [address] [place] [address] Dr. Todd Moreno UA PROTEIN Negative Normal NEGATIVE/ TRACE [facility] Comment on above: Performed By: #### P TT, PT #### [facility] [address] [place] [address] Dr. Todd Moreno UR MICRO IND INDICATED Normal [facility] Comment on above: Performed By: #### P TT, PT #### [facility] [address] [place] [address] Dr. Todd Moreno Urobilinogen Qn (U) 0.2 {Tiffany'U}/dL Normal 0.2 - 1. 0 [facility] Comment on above: Performed By: #### P TT, PT #### [facility] [address] [place] [address] Dr. Todd Moreno LIPASEon 01-31-2022 Lipase [Catalytic activity/Vol] 123.0 U/L Normal 73.0-393.0 [facility] Comment on above: Performed By: #### C MP, LIPA #### [facility] [address] [place] [address] Dr. Todd Moreno PREG QUANT HCGon 01-31-2022 HCG QUANT 711 mIU/mL Normal [facility] Comment on above: Performed By: #### P TT, PT #### [facility] [address] [place] [address] Dr. Todd Moreno HCG RANGE SEE BELOW Normal [facility] Comment on above: Result Comment: 5-50 0.2-1 WEEK 50-500 1-2 WEEKS 100-5,000 2-3 WEEKS 500-10,000 3-4 WEEKS 1,000-50,000 4-5 WEEKS 10,000-100,000 5-6 WEEKS 15,000-200,000 6-8 WEEKS 10,000-100,000 2-3 MONTHS Performed By: #### P TT, PT #### [facility] [address] [place] [address] Dr. Todd Moreno PROF 14(COMP METB)on 022 Albumin [Mass/Vol] 3.7 g/dL Normal 3.4-5.0 [facility] Comment on above: Performed By: #### C MP, LIPA #### [facility] [address] [place] [address] Dr. Todd Moreno Albumin/Globulin [Mass ratio] 1.0 {ratio} Normal [facility] Comment on above: Performed By: #### C MP, LIPA #### [facility] [address] [address] [address] Todd Moreno ALP [Catalytic activity/Vol] 80 U/L Normal 46-116 [facility] Comment on above: Performed By: #### C MP, LIPA #### [facility] [address] [address] [address] Todd Moreno ALT [Catalytic activity/Vol] 23 U/L Normal 14-59 [facility] Comment on above: Performed By: #### C MP, LIPA #### [facility] [address] [address] [address] Todd Moreno Anion gap [Moles/Vol] 10.2 mmol/L Normal [facility] Comment on above: Performed By: #### C MP, LIPA #### [facility] [address] [address] [address] Todd Moreno AST [Catalytic activity/Vol] 14 U/L Critically low 15-37 [facility] Comment on above: Performed By: #### C MP, LIPA #### [facility] [address] [address] [address] Todd Moreno Bilirubin [Mass/Vol] 0.3 mg/dL Normal 0.2-1.0 [facility] Comment on above: Performed By: #### C MP, LIPA #### [facility] [address] [address] [address] Todd Moreno Calcium [Mass/Vol] 9.1 mg/dL Normal 8.5-10.1 [facility] Comment on above: Performed By: #### C MP, LIPA #### [facility] [address] [address] [address] Todd Moreno Chloride [Moles/Vol] 104 mmol/L Normal 98-107 [facility] Comment on above: Performed By: #### C MP, LIPA #### [facility] [address] [address] [address] Todd Moreno CO2 [Moles/Vol] 26.8 mmol/L Normal 21.0-32.0 [facility] Comment on above: Performed By: #### C MP, LIPA #### [facility] [address] [address] [address] Todd Moreno Creatinine [Mass/Vol] 0.87 mg/dL Normal 0.55-1.02 [facility] Comment on above: Performed By: #### C MP, LIPA #### [facility] [address] [address] [address] Todd Moreno EGFR-AF GRENADIAN >60 Normal >=60 [facility] Comment on above: Performed By: #### C MP, LIPA #### [facility] [address] [address] [address] Todd Moreno EGFR-NON AF GRENADIAN >60 Normal >=60 [facility] Comment on above: Performed By: #### C MP, LIPA #### [facility] [address] [address] [address] Todd Moreno Globulin (S) [Mass/Vol] 3.7 g/dL Normal [facility] Comment on above: Performed By: #### C MP, LIPA #### [facility] [address] [address] [address] Todd Moreno Glucose [Mass/Vol] 98 mg/dL Normal 74-106 [facility] Comment on above: Performed By: #### C MP, LIPA #### [facility] [address] [address] [address] Todd Moreno Potassium [Moles/Vol] 4.0 mmol/L Normal 3.5-5.[address] [facility] Comment on above: Performed By: #### C MP, LIPA #### [facility] [address] [address] [address] Todd Moreno Protein [Mass/Vol] 7.4 g/dL Normal 6.4-8.2 [facility] Comment on above: Performed By: #### C MP, LIPA #### [facility] [address] [address] [address] Todd Moreno Sodium [Moles/Vol] 137 mmol/L Normal 136-145 [facility] Comment on above: Performed By: #### C MP, LIPA #### [facility] [address] [place] [address] Dr. Todd Moreno Urea nitrogen [Mass/Vol] 15.0 mg/dL Normal 7.0-18.0 [facility] Comment on above: Performed By: #### C MP, LIPA #### [facility] [address] [place] [address] Dr. Todd Moreno Urea nitrogen/Creatinine [Mass ratio] 17.2 mg/mg Normal [facility] Comment on above: Performed By: #### C MP, LIPA #### [facility] [address] [place] [address] Dr. Todd Moreno URINE MICROSCOPIC ONLYon BACTERIA SMALL Abnormal NONE SEEN [facility] Comment on above: Performed By: #### P TT, PT #### [facility] [address] [place] [address] Dr. Todd Moreno Bacteria identified Cx Nom (U) INDICATED Normal [facility] Comment on above: Performed By: #### P TT, PT #### [facility] [address] [place] [address] Dr. Todd Moreno CAST NONE SEEN Normal NONE SEEN [facility] Comment on above: Performed By: #### P TT, PT #### [facility] [address] [place] [address] Dr. Todd Moreno Crystals LM Nom (Urine sed) NONE SEEN Normal NONE SEEN [facility] Comment on above: Performed By: #### P TT, PT #### [facility] [address] [place] [address] Dr. Todd Moreno Epithelial cells LM Ql (Urine sed) FEW Abnormal NONE SEEN /RARE [facility] Comment on above: Performed By: #### P TT, PT #### [facility] [address] [place] [address] Dr. Todd Moreno MUCOUS NONE SEEN Normal NONE SEEN [facility] Comment on above: Performed By: #### P TT, PT #### [facility] [address] [place] [address] Dr. Todd Moreno RBC 0-2 Normal 0-[address] [facility] Comment on above: Performed By: #### P TT, PT #### [facility] [address] [place] [address] Dr. Todd Moreno WBC 10-20 Abnormal NONE SEEN [facility] Comment on above: Performed By: #### P TT, PT #### [facility] [address] [place] [address] Dr. Todd Moreno ESTROGENon 10-20-2021 Estrogens, Total 68 pg/mL Normal [facility] Comment on above: Result Comment: Prep ubertal < 40 Female Cycle: 1-10 Days 16 - 328 11-20 Days 34 - 501 21-30 Days 48 - 350 Post-Menopausal 40 - 244 Performed By: #### P TT, PT #### [facility] [address] [place] [address] Dr. Todd Moreno ESTRADIOLon 10-16-2021 Estradiol 62.1 pg/mL Normal [facility] Comment on above: Result Comment: Adul t Female: Follicular phase 12.5 - 166.0 Ovulation phase 85.8 - 498.0 Luteal phase 43.8 - 211.0 Postmenopausal <6.0 - 54.7 1st trimester 215.0 - >4300.0 Ramos ECLIA methodology Performed By: #### E STRADI #### [facility] [address] [place] [address] Dr. Todd Moreno FSHon 10-16-2021 FSH 5.6 mIU/mL Normal [facility] Comment on above: Result Comment: Adul t Female: Follicular phase 3.5 - 12.5 Ovulation phase 4.7 - 21.5 Luteal phase 1.7 - 7.7 Postmenopausal 25.8 - 134.8 Performed By: #### P TT, PT #### [facility] [address] [place] [address] Dr. Todd Moreno LUTEINIZING HORMONE (LH)on 0 10-16-2021 LH 12.1 mIU/mL Normal [facility] Comment on above: Result Comment: Adul t Female: Follicular phase 2.4 - 12.6 Ovulation phase 14.0 - 95.6 Luteal phase 1.0 - 11.4 Postmenopausal 7.7 - 58.5 Performed By: #### P TT, PT #### [facility] [address] [place] [address] Dr. Todd Moreno CBC AUTO DIFFon 10-15-2021 BASO # 0.0 103/ul Normal 0.0-0.1 [facility] Comment on above: Performed By: #### P TT, PT #### [facility] [address] [place] [address] Dr. Todd Moreno Basophils/100 WBC (Bld) 0.6 % Normal 0.2-2.0 [facility] Comment on above: Performed By: #### P TT, PT #### [facility] [address] [place] [address] Dr. Todd Moreno EO # 0.1 103/ul Normal 0.0-0.7 [facility] Comment on above: Performed By: #### P TT, PT #### [facility] [address] [place] [address] Dr. Todd Moreno Eosinophils/100 WBC (Bld) 2.1 % Normal 0.9-7.0 [facility] Comment on above: Performed By: #### P TT, PT #### [facility] [address] [place] [address] Dr. Todd Moreno Erythrocyte distribution width (RBC) [Ratio] 14.0 % Normal 11.0-15.0 [facility] Comment on above: Performed By: #### P TT, PT #### [facility] [address] [place] [address] Dr. Todd Moreno Hematocrit (Bld) [Volume fraction] 37.0 % Normal 36.0-48.0 [facility] Comment on above: Performed By: #### P TT, PT #### [facility] [address] [place] [address] Dr. Todd Moreno Hemoglobin (Bld) [Mass/Vol] 11.6 g/dL Critically low 12.0-16.0 [facility] Comment on above: Performed By: #### P TT, PT #### [facility] [address] [place] [address] Dr. Todd Moreno IG # 0.01 10e3/ul Normal 0.00-0.03 [facility] Comment on above: Performed By: #### P TT, PT #### [facility] [address] [place] [address] Dr. Todd Moreno IG % 0.2 % Normal 0.0-0.5 [facility] Comment on above: Performed By: #### P TT, PT #### [facility] [address] [place] [address] Dr. Todd Moreno LYMPH # 2.2 103/ul Normal 1.2-3.8 [facility] Comment on above: Performed By: #### P TT, PT #### [facility] [address] [place] [address] Dr. Todd Moreno Lymphocytes/100 WBC (Bld) 33.1 % Normal 20.5-60.0 [facility] Comment on above: Performed By: #### P TT, PT #### [facility] [address] [place] [address] Dr. Todd Moreno MANUAL DIFF REQ NO Normal [facility] Comment on above: Performed By: #### P TT, PT #### [facility] [address] [place] [address] Dr. Todd Moreno MCH (RBC) [Entitic mass] 26.3 pg Critically low 26.7-34.0 [facility] Comment on above: Performed By: #### P TT, PT #### [facility] [address] [place] [address] Dr. Todd Moreno MCHC (RBC) [Mass/Vol] 31.4 g/dL Normal 29.9-35.2 [facility] Comment on above: Performed By: #### P TT, PT #### [facility] [address] [place] [address] Dr. Todd Moreno MCV (RBC) [Entitic vol] 83.9 fL Normal 81.0-99.0 [facility] Comment on above: Performed By: #### P TT, PT #### [facility] [address] [place] [address] Dr. Todd Moreno MONO # 0.2 103/ul Critically low 0.3-0.8 [facility] Comment on above: Performed By: #### P TT, PT #### [facility] [address] [place] [address] Dr. Todd Moreno Monocytes/100 WBC (Bld) 3.5 % Normal 1.7-12.[address] [facility] Comment on above: Performed By: #### P TT, PT #### [facility] [address] [place] [address] Dr. Todd Moreno NEUT # 4.0 103/ul Normal 1.4-6.[address] [facility] Comment on above: Performed By: #### P TT, PT #### [facility] [address] [place] [address] Dr. Todd Moreno Neutrophils/100 WBC (Bld) 60.5 % Normal 43.0-75.[address] [facility] Comment on above: Performed By: #### P TT, PT #### [facility] [address] [place] [address] Dr. Todd Moreno Platelet mean volume (Bld) [Entitic vol] 10.6 fL Normal 9.5-13.[address] [facility] Comment on above: Performed By: #### P TT, PT #### [facility] [address] [place] [address] Dr. Todd Moreno PLT 263 103/ul Normal 150-[address] [facility] Comment on above: Performed By: #### P TT, PT #### [facility] [address] [place] [address] Dr. Todd Moreno RBC 4.41 106/ul Normal 4.20-5.[address] [facility] Comment on above: Performed By: #### P TT, PT #### [facility] [address] [place] [address] Dr. Todd Moreno WBC 6.6 103/ul Normal 4.0-11.[address] [facility] Comment on above: Performed By: #### P TT, PT #### [facility] [address] [place] [address] Dr. Todd Moreno FREE T4on 10-15-2021 Free T4 [Mass/Vol] 1.05 ng/dL Normal 0.76-1.46 The [facility] Comment on above: Performed By: #### P TT, PT #### [facility] [address] [place] [address] Dr. Todd Moreno PROTIMEon 10-15-2021 INR Coag (PPP) [Relative time] 1.02 {INR} Normal [facility] Comment on above: Performed By: #### P TT, PT #### [facility] [address] [place] [address] Dr. Todd Moreno INR GUIDELINES SEE BELOW Normal [facility] Comment on above: Result Comment: RAMÓN RED INR: 2.0 - 3.0 CONDITIONS NOT LISTED BELOW 2.5 - 3.5 FOR PROSTHETIC HEART VALVE REPLACEMENT 2.5 - 3.5 RECURRENT THROMBOSIS Performed By: #### P TT, PT #### [facility] [address] [place] [address] Dr. Todd Moreno PT Coag (PPP) [Time] 11.0 s Normal 9.0-11.6 [facility] Comment on above: Performed By: #### P TT, PT #### [facility] [address] [place] [address] Dr. Todd Moreno PTTon 10-15-2021 aPTT Coag (Bld) [Time] 32.4 s Normal 22.3-36.2 [facility] Comment on above: Performed By: #### P TT, PT #### [facility] [address] [place] [address] Dr. Todd Moreno TSHon 10-15-2021 TSH 1.777 uIU/mL Normal 0.358-3.740 [facility] Comment on above: Performed By: #### P TT, PT #### [facility] [address] [place] [address] Dr. Todd Moreno PAP ACOG PANEL 2: 30 to 65on 10-10-2021 . . Normal [facility] Comment on above: Result Comment: Perf ormed at: WB Performed By: #### [id number] #### [facility] [address] [address] [address] Todd Moreno Age Gdln ACOG Testing 30-65 Normal [facility] Comment on above: Performed By: #### [id number] #### [facility] [address] [address] [address] Todd Moreno DIAGNOSIS: Comment Normal [facility] Comment on above: Result Comment: NEGA TIVE FOR INTRAEPITHELIAL LESION OR MALIGNANCY. Performed at: WB Performed By: #### [id number] #### [facility] [address] [address] [address] Todd Moreno HPV Aptima Negative Normal Negative [facility] Comment on above: Result Comment: This nucleic acid amplification test detects fourteen high-risk HPV types (16,18,31,33,35,39,45,51,52,56,58,59,66,68) without differentiation. Performed at: =G Performed By: #### [id number] #### [facility] [address] [address] [address] Todd Moreno Methodology: Comment Normal [facility] Comment on above: Result Comment: This liquid based ThinPrep(R) pap test was screened with the use of an image guided system. Performed at: WB Performed By: #### [id number] #### [facility] [address] [place] [address] Dr. Todd Moreno Note: Comment Normal [facility] Comment on above: Result Comment: The Pap smear is a screening test designed to aid in the detection of premalignant and malignant conditions of the uterine cervix. It is not a diagnostic procedure and should not be used as the sole means of detecting cervical cancer. Both false-positive and false-negative reports do occur. . Performed at: WB Performed By: #### [id number] #### [facility] [address] [address] [address] Todd Moreno Performed by: Comment Normal [facility] Comment on above: Result Comment: Magalie Lemus, [employer] P[employer] (ASCP) Performed at: WB Performed By: #### [id number] #### [facility] [address] [address] [address] Todd Moreno Specimen adequacy: Comment Normal [facility] Comment on above: Result Comment: Sati sfactory for evaluation. Endocervical and/or squamous metaplastic cells (endocervical component) are present. Performed at: WB Performed By: #### [id number] #### [facility] [address] [place], [place] [address] Dr. Todd Moreno COVID-19 Antigenon 2 COVID-19 [...] its performance Corinne Disclaimer characteristic determined by [employer] and Corinne Disclaimer validated at [facility]. This Corinne Disclaimer test has not [...] is terminated or revoked sooner. PERFORMED BY: [place] [address] PATHOLOGIST SALAD BAR CLERK JONATHAN SHEPARD M.D. Normal [facility] Comment on above: Performed By: #### S OFIANEG, COVID-19 CORINNE #### [place] [address] [place] HCG,Urineon 03-30-2021 Beta HCG ( test) Ql (U) Negative [facility] [place] Comment on above: Result Comment: PERF ORMED BY: [place] [address] PATHOLOGIST SALAD BAR CLERK JIANLAN SUN M.D. Performed By: #### U HCG #### [address] Corinne Ag Negativeon 03-30-19 Corinne Ag Negative Negative Normal Negative [facility] Comment on above: Result Comment: This is a duplicate Corinne SARS Antigen (KAEL) result to be used for statistical tracking purpose only. PERFORMED BY: [place] [address] PATHOLOGIST SALAD BAR CLERK JONATHAN SHEPARD M.D. Performed By: #### S OFIANEG, COVID-19 CORINNE #### [address] COVID-19 FRMCon 03-28-2021 SARS-CoV-2 (COVID-19) RNA JESE+probe Ql (Unsp spec) Negative Normal Negative [facility] Comment on above: Order Comment: Healt hcare Worker?: N Result Comment: Testing for SARS-CoV-2 by RT-PCR This test was developed and its performance characteristics determined by [employer] ([employer]) and validated at the [facility]. This test has not been FDA [...] is terminated or revoked sooner. PERFORMED BY: [place] [address] PATHOLOGIST SALAD BAR CLERK JONATHAN SHEPARD M.D. Performed By: #### C OVID 19 [facility] #### [address] XR elbow LT 2Von 03-01-2021 XR elbow LT 2V [facility] [address] [place] [address] XRay Report Signed Patient: Moira Almaguer MR#: [id number] : 1985 Acct:[id number] Age/Sex: 35 / F ADM Date: 03/01/21 Loc: [facility] Room: Type: [facility] Attending Dr: Leandro Robles MD Ordering Provider: [...] Valdez Mcwilliams M.D.03/01/2021 1:47 PM Dictation Location: [place] [address] Transcribed By: [facility] 03/01/21 1347 Dictated By: Valdez Mcwilliams DO 03/01/21 1344 Signed By: 03/01/21 1347 [facility] [place] XR FOREARM LEFT 2 VIEWSon XR FOREARM [...] recommended in 7 to 10 days. [facility] Workstation ID: [id number] Dictated by: MAR DAWSON on SunSep 08, 2020 11:41:42 PM EDT Transcribed by: SHERRILL SMYTH on SunSep 09, 2020 12:10:05 AM EDT Finalized by: MAR DAWSON on SunSep 09, 2020 12:16:26 AM EDT [facility] Comment on above: Order Comment: Injur y/Trauma [...] on SunSep 08, 2020 11:42:00 PM EDT [facility] Comment on above: Order Comment: Injur y/Trauma [...] 34.68 kg/m2 Rogers James DO Work Phone: [facility] 02-20-2024 11:40-0500 Body weight 100.43 kg Rogers James DO Work Phone: [facility] 02-20-2024 11:40-0500 Diastolic blood pressure 70 mm[Hg] Rogers James DO Work Phone: [facility] 02-20-2024 11:40-0500 Systolic blood pressure 120 mm[Hg] Rogers James DO Work Phone: [facility] 02-07-2024 11:42-0500 Body mass index (BMI) [Ratio] 34.3 kg/m2 Iveth MCGRATH Work Phone: [facility] 02-07-2024 11:42-0500 Body weight 99.34 kg Iveth MCGRATH Work Phone: [facility] 02-07-2024 11:42-0500 Diastolic blood pressure 70 mm[Hg] Iveth Paresh PA Work Phone: [facility] 02-07-2024 11:42-0500 Systolic blood pressure 118 mm[Hg] Iveth Hood PA Work Phone: [facility] 01-10-2024 10:44-0400 Body mass index (BMI) [Ratio] 33.89 kg/m2 Rogers James DO Work Phone: [facility] 01-10-2024 10:44-0400 Body weight 98.16 kg Rogers James DO Work Phone: [facility] 01-10-2024 10:44-0400 Diastolic blood pressure 74 mm[Hg] Rogers James DO Work Phone: [facility] 01-10-2024 10:44-0400 Systolic blood pressure 120 mm[Hg] Rogers James DO Work Phone: [facility] 12-13-2023 10:51-0400 Body mass index (BMI) [Ratio] 33.33 kg/m2 Rogers James DO Work Phone: [facility] 12-13-2023 10:51-0400 Body weight 96.53 kg Rogers James DO Work Phone: [facility] 12-13-2023 10:51-0400 Diastolic blood pressure 80 mm[Hg] Rogers James DO Work Phone: [facility] 12-13-2023 10:51-0400 Systolic blood pressure 126 mm[Hg] Rogers James DO Work Phone: [facility] 11-15-2023 10:14-0400 Body mass index (BMI) [Ratio] 33.11 kg/m2 Rogers James DO Work Phone: [facility] 11-15-2023 10:14-0400 Body weight 95.89 kg Rogers James DO Work Phone: [facility] 11-15-2023 10:14-0400 Diastolic blood pressure 78 mm[Hg] Rogers James DO Work Phone: [facility] 11-15-2023 10:14-0400 Systolic blood pressure 118 mm[Hg] Rogers James DO Work Phone: [facility] 03-01-2021 11:00-0500 Body height 170.18 cm Leandro Robles Other [employer] Other 03-01-2021 11:00-0500 Body mass index (BMI) [Ratio] 30.07 kg/m2 Leandro Mckenziexa Other [employer] Other 03-01-2021 11:00-0500 Body weight 87.09 kg Leandro Mckenziexa Other [employer] Other Encounters Encounter Date Encounter Type Care Provider Facility Start: 03-10-2024 End: 03-10-2024 Bamboo flowsheet Rogers James DO Work Phone: [facility] Start: 03-10-2024 End: 03-10-2024 Bamboo flowsheet Rogers James DO Work Phone: [facility] Start: 03-10-2024 End: 03-10-2024 ambulatory ROGERS JAMES Not Available Start: 03-10-2024 End: 03-10-2024 flow sheet Rogers James DO Work Phone: [facility] Comment on above: 32 weeks gestation o f ; Third trimester ; History of gestational diabetes; Anemia, unspecified type Start: 02-20-2024 End: 02-20-2024 Bamboo flowsheet Rogers James DO Work Phone: [facility] Start: 02-20-2024 End: 02-20-2024 Bamboo flowsheet Rogers James DO Work Phone: [facility] Start: 02-20-2024 End: 02-20-2024 Clinisync Result Encounter Rogers James DO Work Phone: [facility] External Department Unsolicited Start: 02-20-2024 End: 02-20-2024 ambulatory ROGERS JAMES Not Available Start: 02-20-2024 End: 02-20-2024 flow sheet Rogers James DO Work Phone: [facility] Comment on above: 29 weeks gestation o f ; Third trimester ; Diabetes mellitus screening Start: 02-07-2024 End: 02-07-2024 Bamboo flowsheet Iveth MCGRATH Work Phone: [facility] Start: 02-07-2024 End: 02-07-2024 Bamboo flowsheet Iveth MCGRATH Work Phone: [facility] Start: 02-07-2024 End: 02-07-2024 ambulatory IVETH HOOD Not Available Start: 02-07-2024 End: 02-07-2024 flow sheet Iveth MCGRATH Work Phone: [facility] Comment on above: 24 weeks gestation o f ; size consistent with dates during in second trimester Start: 02-04-2024 End: 02-04-2024 ambulatory [facility] Start: 01-30-2024 End: 01-30-2024 ambulatory [facility] Start: 01-23-2024 End: 01-23-2024 Telephone encounter Emily Alfaro DO Work Phone: [facility] Start: 01-10-2024 End: 01-10-2024 Bamboo flowsheet Rogers James DO Work Phone: [facility] Start: 01-10-2024 End: 01-10-2024 Bamboo flowsheet Rogers James DO Work Phone: [facility] Start: 01-10-2024 End: 01-10-2024 flow sheet Rogers James DO Work Phone: [facility] Comment on above: Second trimester pre gnancy; 23 weeks gestation of Start: 01-10-2024 End: 01-10-2024 ambulatory ROGERS JAMES Not Available Start: 01-07-2024 End: 01-07-2024 ambulatory [facility] Start: 12-24-2023 End: 12-24-2023 ambulatory [facility] Start: 12-13-2023 End: 12-13-2023 Bamboo flowsheet Rogers James DO Work Phone: [facility] Start: 12-13-2023 End: 12-14-2023 Bamboo flowsheet Rogers James DO Work Phone: [facility] Start: 12-13-2023 End: 12-14-2023 External Result Encounter Rogers James DO Work Phone: [facility] Unsolicited Start: 12-13-2023 End: 12-13-2023 ambulatory ROGERS JAMES Not Available Start: 12-13-2023 End: 12-13-2023 flow sheet Rogers James DO Work Phone: [facility] Comment on above: 19 weeks gestation o f ; Exposure to STD; Vaginal discharge; Elevated glucose Start: 11-15-2023 End: 11-15-2023 Bamboo flowsheet Rogers James DO Work Phone: [facility] Start: 11-15-2023 End: 11-15-2023 Bamboo flowsheet Rogers James DO Work Phone: [facility] Start: 11-15-2023 End: 11-15-2023 ambulatory ROGERS RAMIREZ Not Available Start: 11-15-2023 End: 11-15-2023 flow sheet Rogers James DO Work Phone: [facility] Comment on above: Second trimester pre gnancy; History of gestational diabetes; Diabetes mellitus screening; Screening, , for anatomic survey Start: 11-07-2023 End: 11-07-2023 Clinisync Result Encounter Iveth MCGRATH Work Phone: [facility] External Department Unsolicited Start: 11-07-2023 End: 11-07-2023 Clinisync Result Encounter Iveth MCGRATH Work Phone: [facility] External Department Unsolicited Start: 10-18-2023 End: 10-18-2023 ambulatory IVETH HOOD Not Available Start: 05-21-2023 End: 05-21-2023 ambulatory IVETH HOOD Not Available Start: 05-30-2022 End: 05-30-2022 ambulatory [...] 03-01-2021 End: 03-01-2021 ambulatory Leandro Robles Other [employer] Other Start: 03-01-2021 Encounter for other preprocedural examination Leandro Robles [facility] Start: 03-01-2021 Office outpatient ne w 45 minutes Leandro Robles [facility] Start: 09-09-2020 End: 09-09-2020 [facility] Date Procedure Procedure Detail Performing Clinician Start: 03-10-2024 Urnls dip stick/tabl et rgnt non-auto w/o micrscp Rogers James DO Work Phone: Start: 02-20-2024 MLR HEMOGLOBIN A1C Core y James DO Work Phone: Start: 02-20-2024 Urnls dip stick/tabl et rgnt non-auto w/o micrscp Rogers James DO Work Phone: Start: 02-04-2024 Follow-up visit Follow-up ROB GONZALES Start: 01-10-2024 Urnls dip stick/tabl et rgnt non-auto w/o micrscp Rogers James DO Work Phone: Start: 12-13-2023 URETHRITIS/DISCHARGE PLUS VAGINITIS (HTRX) Rogers James DO Work Phone: Start: 12-13-2023 Urnls dip stick/tabl et rgnt non-auto w/o micrscp Rogers James DO Work Phone: Start: 11-15-2023 Urnls dip stick/tabl et rgnt non-auto w/o micrscp Rogers James DO Work Phone: Start: 11-07-2023 ALL CBC WITH AUTO DIFF Iveth MCGRATH Work Phone: Start: 03-08-2023 Microscopic observat ion [Identifier] in Cervix by Cyto stain Rogers James DO Work Phone: Start: 03-08-2023 Cytp cerv/vag auto t hin layer prep mnl screen Rogers Ramirez DO Work Phone: Start: 10-05-2021 Microscopic observat ion [Identifier] in Cervix by Cyto stain Iveth MCGRATH Work Phone: Plan of Treatment Date Care Activity Detail Author Start: 03-08-2028 Screening for malign ant neoplasm of cervix [facility] Start: 10-05-2026 Screening for malign ant neoplasm of cervix [facility] Start: 03-24-2024 End: 03-24-2024 Patient encounter procedure 03/24/2024 11:20 AM EST Routine [facility] [address] [place] [address] Iveth Hood PA [address] [place] [address] [place], [place] [id number] [facility] Start: 03-10-2024 End: 03-10-2025 US biophysical profile w non stress test US biophysical profile w non stress test Imaging Routine 32 weeks gestation of Third trimester History of gestational diabetes Expected: 03/10/2024 (Approximate), Expires: 03/10/2025 [facility] Work Phone: Comment on above: Expected: 03/10/2024 (Approximate), Expires: 03/10/2025 Start: 03-10-2024 End: 03-10-2024 Patient encounter procedure 03/10/2024 9:30 AM EST Routine [facility] [address] [place] [address] Rogers Ramirez DO [address] [place] [address] [place] [address] [facility] Start: 02-20-2024 End: 02-19-2025 CBC panel - Blood by Automated count CBC Lab Routine Diabetes mellitus screening Expected: 02/20/2024 (Approximate), Expires: 02/19/2025 [facility] Work Phone: Comment on above: Expected: 02/20/2024 (Approximate), Expires: 02/19/2025 Start: 02-20-2024 End: 02-20-2024 Patient encounter procedure 02/20/2024 11:00 AM EST Routine [facility] [address] [place] [phone] Rogers Ramirez DO [address] [facility] [place], [place] [id number] [facility] Start: 02-07-2024 End: 02-06-2025 US for US OB SCAN FOR GROWTH Imaging Routine size consistent with dates during in second trimester Expected: 02/07/2024 (Approximate), Expires: 02/06/2025 [facility] Work Phone: Comment on above: Expected: 02/07/2024 (Approximate), Expires: 02/06/2025 Start: 02-07-2024 End: 02-07-2024 Patient encounter procedure 02/07/2024 11:20 AM EST Routine [facility] [address] [place] [phone] Iveth Hood PA [address] [place] [address] [facility] Start: 01-10-2024 End: 01-10-2024 Patient encounter procedure [facility] Comment on above: Arrived Start: 12-17-2023 End: 12-17-2023 Professional / ancillary services management 12/17/2023 8:00 AM EDT Ancillary Procedure [facility] [address] [place] [phone] [facility] Start: 12-13-2023 End: 01-12-2024 Alpha fetoprotein, maternal Alpha fetoprotein, maternal Lab Routine 19 weeks gestation of Expected: 12/13/2023 (Approximate), Expires: 01/12/2024 [facility] Comment on above: Expected: 12/13/2023 (Approximate), Expires: 01/12/2024 Start: 12-13-2023 End: 12-13-2023 Patient encounter procedure 12/13/2023 10:10 AM EDT Routine [facility] [address] [place] [id number] Rogers Ramirez, DO [address] [place] [address] [facility] Start: 11-18-2023 Influenza vaccination Influenza Vacc ine (#1) [facility] Start: 11-15-2023 End: 11-14-2024 Measurement of glucose 1 hour after glucose challenge for glucose tolerance test Glucose tolerance, 1 hour Lab Routine Diabetes mellitus screening Expected: 11/15/2023 (Approximate), Expires: 11/14/2024 [facility] Work Phone: Comment on above: Expected: 11/15/2023 (Approximate), Expires: 11/14/2024 Start: 11-15-2023 End: 11-14-2024 US for US OB ANATOMY SINGLE W US OB CERVICAL LENGTH Imaging Routine Second trimester History of gestational diabetes Screening, , for anatomic survey Expected: 11/15/2023 (Approximate), Expires: 11/14/2024 [facility] Comment on above: Expected: 11/15/2023 (Approximate), Expires: 11/14/2024 Start: 11-15-2023 End: 11-15-2023 Patient encounter procedure 11/15/2023 9:50 AM EDT Routine [facility] [address] [facility] [place] [address] Rogers Ramirez, DO [address] [place] [address] [facility] CHLAMYDIA TRACHOMATI S (GENITO/STI) CHLAMYDIA TRACHOMATIS (GENITO/STI) Lab Routine Exposure to STD Ordered: 12/13/2023 [facility] Comment on above: Ordered: 12/13/2023 Hemoglobin A1c/Hemoglobin.total in Blood Hemoglobin A1c Lab Routine Diabetes mellitus screening Ordered: 02/20/2024 [facility] Comment on above: Ordered: 02/20/2024 Neisseria gonorrhoea e DNA [Presence] in Unspecified specimen by JESE with probe detection Neisseria gonorrhea DNA probe, direct Lab Routine Exposure to STD Ordered: 12/13/2023 [facility] Comment on above: Ordered: 12/13/2023 SURESWAB(R) ADVANCED VAGINITIS PLUS, TMA SURESWAB(R) ADVANCED VAGINITIS PLUS, TMA Pathology and Cytology Routine Vaginal discharge Ordered: 12/13/2023 [facility] Work Phone: Comment on above: Ordered: 12/13/2023 Immunizations Immunization Date Immunization Notes Care Provider Fa [facility] 12-26-2016 influenza virus vacc ine, unspecified formulation Iveth MCGRATH Work Phone: [facility] Payers Date Payer Category Payer Private Health Insurance [id number] 2021 Private Health Insurance [employer]K TH [id number] 2021 Unknown FRONTPATH FRONTP ATH [id number] 2021-Present [phone] [address] [id number]. [id number] 2019 Unknown [id number] 1986 Unknown [id number] 05.04.840.1.324312.3.579.2. 902 1986 Unknown [id number] 2.16.840.1.009083.3.579.2. 593 1986 Unknown [id number] 2.16.840.1.622780.3.579.2. 593 1986 Unknown [id number] 2.16.840.1.818075.3.579.2. 593 1986 Unknown [id number] 2.16.840.1.604613.3.579.2. 59 1986 Unknown [id number] 2.16.840.1.803778.3.579.2. 593 1986 Unknown [id number] 2.840.1.200756.3.579.2. 59 1986 Unknown [id number] 2.16840.1.284715.3.579.2. 1285 1986 Unknown [id number] 840.1.213822.3.579.2. 1285 1986 Unknown [id number] 2.840.1.887743.3.579.2. 1285 1986 Unknown [id number] 2.840.1.578370.3.579.2. 1285 1986 Unknown [id number] 2.16840.1.096155.3.579.2. 1258 1986 Unknown [id number] .840.1.044469.3.579.2. 1258 1986 Unknown [id number] 2.840.1.851908.3.579.2. 1258 1986 Unknown [id number] 2.16840.1.932051.3.579.2. 1258 1986 Unknown [id number] 2.16.840.1.645625.3.579.2. 1258 1986 Unknown [id number] 2.16840.1.104999.3.579.2. 1258 1986 Unknown [id number] 2.16.840.1.716150.3.579.2. 1259 1986 Unknown [id number] 2.16.840.1.201467.3.579.2. 1259 1959 Self-pay 1959 Unknown [id number] 1959 Unknown [id number] 1959 Unknown [id number] Unknown [id number] 2.16.840.1.535274.3.579.2. 593 Social History Date Type Detail Facility Start: 10-15-2022 End: 02-05-2023 Sex Assigned At [facility] Start: 02-12-2023 Tobacco smoking status DCIS Ex-smoke r [facility] End: 08-19-2011 History of tobacco use Current smoker [facility] End: 08-19-2011 History of tobacco use Cigarette Smoker [facility] Start: 02-12-2023 Tobacco use and exposure Smoke less tobacco non-user [facility] Start: 01-10-2024 End: 03-10-2024 Alcoholic beverage intake Ex-drinker (finding) [facility] Start: 10-15-2022 End: 02-05-2023 History of Social function [facility] Within the last year , have you been afraid of your partner or ex-partner? No [facility] Do you belong to any clubs or organizations such as muslim groups, unions, fraternal or athletic groups, or [...] To some extent [facility] (I/We) worried whedavid er (my/our) food would run out before (I/we) got money to buy more. Never true [facility] Start: 02-10-2023 Alcohol Comment Caffeine: 1-2 cups/d ay [facility] [facility] Start: 08-11-2023 [facility] Start: 1985 Sex assigned at Female [facility] Start: 08-23-2022 Gender identity Identifies as female gender (finding) [facility] Clinical Notes 03-01-2021 to 03-10-2024 Mónica Vincent MA - 03/10/2024 9:30 AM RAMILA Pompa - 02/20/2024 11:00 AM RAMILA Pompa - 02/07/2024 11:20 AM ESTTelephone Encounter - Theosanjay LairdSandra - 01/23/2024 10:53 AM EST Note Date & Type Note Facility 03-10-2024 History of Presen t illness Narrative Reason for Appointment: Patient ID: Moira Starr is a 38 y.o. female who presents for Routine Visit Patient presents today for Return OB appointment. MEDICATIONS Current Outpatient Medications Medication Instructions Continuous Glucose Bottler Helper ([employer] Adriana 2 [place]) device 1 Device, Does not apply, 4 times daily MV-Min-Fe Fum-FA-DHA ( 1 PO) Take by mouth. saccharomyces boulardii (FLORASTOR) 250 mg, 2 times daily ALLERGIES Allergies Allergen Reactions Sertraline Other Flat emotions Other Reaction(s): decreased emotional lability PROBLEMS Active Ambulatory Problems Diagnosis Date Noted Attention deficit hyperactivity disorder (ADHD) (CMS/[facility]) 09/15/2022 Cervicalgia 09/15/2022 Chronic fatigue 09/15/2022 Chronic tension-type headache, not intractable 09/15/2022 Generalized anxiety disorder (CMS/HCC) 09/15/2022 HPV (human papilloma virus) infection 09/15/2022 Large breasts 09/15/2022 LGSIL on Pap smear of cervix 09/15/2022 Migraine with aura and without status migrainosus, not intractable (CMS/HCC) 09/15/2022 Missed period 09/15/2022 Moderate recurrent major depression (CMS/[facility]) 09/15/2022 Other chronic pain 09/15/2022 Radicular pain 09/15/2022 Vitamin D deficiency 09/15/2022 History of miscarriage 06/22/2023 Positive urine test 06/22/2023 23 weeks gestation of 01/10/2024 32 weeks gestation of 03/10/2024 Third trimester 03/10/2024 Resolved Ambulatory Problems Diagnosis Date Noted No Resolved Ambulatory Problems Past Medical History: Diagnosis Date ADHD (attention deficit hyperactivity disorder) ([facility]/HCC) ADHD (attention deficit hyperactivity disorder) (CMS/HCC) Ankle [...] Cholelithiasis Sibling Other (Other) Sibling SURGICAL HISTORY No past surgical history on file. REVIEW OF SYSTEMS Review of Systems: Review of Systems OBJECTIVE Objective: OBGyn Exam Vitals: Estimated body mass index is 34.68 kg/m as calculated from the following: Height as of 02/12/23: 5' 7 . Weight as of 02/20/24: 221 lb 6.4 oz. BP: Patient's last menstrual period was 07/28/2023. ASSESSMENT & PLAN ICD-10-CM 1. 32 weeks gestation of Z3A.32 POCT urinalysis dipstick manually resulted 2. Third trimester Z34.93 POCT urinalysis dipstick manually resulted Return OB: Patient presents today for a routine obstetrics appointment. Patient is currently 32w2d . Patient states she is doing well but has complaints of being tired due to current . Patient has verbalizes frequent movement. labor precautions was discussed/given and patient was instructed to perform kick counts three times a day. Pt complains of having a few diabetic numbers coming back lower than usual. Pt states she felt dizzy/drunk feeling 2 nights ago and her number ran 55. Last night the arm monitor went off twice with numbers ranging around 60-70. Pt states she did not test her self due to it being 2 am. Orders Placed This Encounter Procedures POCT urinalysis dipstick manually resulted Follow Up: Patient is to return to office in 2 week for routine OB appointment. Documented by Mónica Vincent MA on behalf of: Rogers Ramirez DO documented in this encounter [facility] 02-20-2024 History of Presen t illness Narrative Reason for Appointment: Patient ID: Moira Starr is a 38 y.o. female who presents for Routine Visit Patient presents today for Return OB appointment. MEDICATIONS Current Outpatient Medications Medication Instructions Continuous Glucose Bottler Helper (FreeStyle Adriana 2 [place]) device 1 Device, Does not apply, 4 times daily MV-Min-Fe Fum-FA-DHA ( 1 PO) Take by mouth. saccharomyces boulardii (FLORASTOR) 250 mg, 2 times daily ALLERGIES Allergies Allergen Reactions Sertraline Other Flat emotions Other Reaction(s): decreased emotional lability PROBLEMS Active Ambulatory Problems Diagnosis Date Noted Attention deficit hyperactivity disorder (ADHD) ([facility]) 09/15/2022 Cervicalgia 09/15/2022 Chronic fatigue 09/15/2022 Chronic tension-type headache, not intractable 09/15/2022 Generalized anxiety disorder ([facility]/HCC) 09/15/2022 HPV (human papilloma virus) infection 09/15/2022 Large breasts 09/15/2022 LGSIL on Pap smear of cervix 09/15/2022 Migraine with aura and without status migrainosus, not intractable ([facility]/HCC) 09/15/2022 Missed period 09/15/2022 Moderate recurrent major depression ([facility]) 09/15/2022 Other chronic pain 09/15/2022 Radicular pain 09/15/2022 Vitamin D deficiency 09/15/2022 History of miscarriage 06/22/2023 Positive urine test 06/22/2023 23 weeks gestation of 01/10/2024 Resolved Ambulatory Problems Diagnosis Date Noted No Resolved Ambulatory Problems Past Medical History: Diagnosis Date ADHD (attention deficit hyperactivity disorder) ([facility]) ADHD (attention deficit hyperactivity disorder) ([facility]) Ankle pain, left Anxiety with depression Epidermal inclusion cyst Fall with injury Gastro-esophageal reflux disease without esophagitis Headache History of cigarette smoking IBS (irritable bowel syndrome) Influenza Irritable bowel syndrome without diarrhea Mononucleosis syndrome Pain in thoracic spine Perennial allergic rhinitis Scoliosis Sinusitis URI (upper respiratory infection) HISTORY PAST MEDICAL HISTORY SOCIAL HISTORY Past Medical History: Diagnosis Date ADHD (attention deficit hyperactivity disorder) ([facility]) ADHD (attention deficit hyperactivity disorder) ([facility]) Ankle pain, left Anxiety with depression Anxiety/depression [...] Rogers Ramirez DO documented in this encounter [facility] 02-07-2024 History of Presen t illness Narrative Reason for Appointment: Patient ID: Moira Starr is a 38 y.o. female who presents for Routine Visit Patient presents today for Return OB appointment. MEDICATIONS Current Outpatient Medications Medication Instructions Continuous Glucose Bottler Helper ([employer] Adriana 2 [place]) device 1 Device, Does not apply, 4 [...] calculated from the following: Height as of 23: 5' 7 . Weight as of this [...] by Nevaeh Peralta LPN on behalf of: RAMILA Joshi documented in this encounter [facility] 01-23-2024 Telephone encounter Note Form atting of this note might be different from [...] we will have to put her with REGISTERED PHARMACIST of her choice (since she would be a returning Angelina pt) to establish care. [facility] 11-06-2024 Miscellaneous Notes Formattin g of this note [...] we will have to put her with REGISTERED PHARMACIST of her choice (since she would be a returning Angelina pt) to establish care. documented in this encounter [facility] 01-10-2024 History of Presen t illness Narrative Reason for Appointment: Patient ID: Moira Starr is a 38 y.o. female who presents for Routine Visit Patient presents today for Return OB appointment. MEDICATIONS Current Outpatient Medications Medication Instructions Continuous Glucose Bottler Helper (FreeStyle Adriana 2 [place]) device 1 Device, Does not apply, 4 [...] Date Noted Attention deficit hyperactivity disorder (ADHD) ([facility]) 09/15/2022 Cervicalgia 09/15/2022 Chronic fatigue 09/15/2022 Chronic tension-type headache, not intractable 09/15/2022 Generalized anxiety disorder ([facility]) 09/15/2022 HPV (human papilloma virus) infection 09/15/2022 Large breasts 09/15/2022 LGSIL on Pap smear of cervix 09/15/2022 Migraine with aura and without status migrainosus, not intractable ([facility]) 09/15/2022 Missed period 09/15/2022 Moderate recurrent major [...] nursing note reviewed. Exam conducted with a bacon slicer present. Vitals: Estimated body mass index is [...] Rogers Ramirez DO documented in this encounter [facility] 12-13-2023 History of Presen t illness Narrative Reason for Appointment: Patient ID: Moira Starr is a 38 y.o. female who presents for Routine Visit and STI Screening Patient presents today for Return OB appointment. MEDICATIONS Current Outpatient Medications Medication Instructions Continuous Glucose Bottler Helper (FreeStyle Adriana 2 [place]) device 1 Device, Does not apply, 4 times daily ergocalciferol (VITAMIN D2) 1.25 mg, Oral, Weekly MV-Min-Fe Fum-FA-DHA ( 1 PO) Oral saccharomyces boulardii (FLORASTOR) 250 mg, Oral, 2 times daily ALLERGIES Allergies Allergen Reactions Sertraline Other Flat emotions Other Reaction(s): decreased emotional lability PROBLEMS Active Ambulatory Problems Diagnosis Date Noted Attention deficit hyperactivity disorder (ADHD) ([facility]) 09/15/2022 Cervicalgia 09/15/2022 Chronic fatigue 09/15/2022 Chronic tension-type headache, not intractable 09/15/2022 Generalized anxiety disorder ([facility]) 09/15/2022 HPV (human papilloma virus) infection 09/15/2022 Large breasts 09/15/2022 LGSIL on Pap smear of cervix 09/15/2022 Migraine with aura and without status migrainosus, not intractable ([facility]) 09/15/2022 Missed period 09/15/2022 Moderate recurrent major depression (HCC) ([facility]) 09/15/2022 Other chronic pain 09/15/2022 Radicular pain 09/15/2022 Vitamin D deficiency 09/15/2022 History of miscarriage 06/22/2023 Positive urine test 06/22/2023 Resolved Ambulatory Problems Diagnosis Date Noted No Resolved Ambulatory Problems Past Medical History: Diagnosis Date ADHD (attention deficit hyperactivity disorder) ([facility]) ADHD (attention deficit hyperactivity disorder) ([facility]) Ankle pain, left Anxiety with depression Epidermal inclusion cyst Fall with injury Gastro-esophageal reflux disease without esophagitis Headache History of cigarette smoking IBS (irritable bowel syndrome) Influenza Irritable bowel syndrome without diarrhea Mononucleosis syndrome Pain in thoracic spine Perennial allergic rhinitis Scoliosis Sinusitis URI (upper respiratory infection) HISTORY PAST MEDICAL HISTORY SOCIAL HISTORY Past Medical History: Diagnosis Date ADHD (attention deficit hyperactivity disorder) ([facility]) ADHD (attention deficit hyperactivity disorder) ([facility]) Ankle pain, left Anxiety with depression Anxiety/depression [...] Types: Cigarettes Quit date: 08/19/2011 Years since quittin.3 Smokeless tobacco: Never Substance Use Topics Alcohol use: Not Currently Comment: Caffeine: 1-2 cups/day Drug use: Never FAMILY HISTORY Family History Problem Relation Name Age of Onset Hypertension Mother Graciela Almaguer Cancer Mother Graciela Young colon cancer in remission Cholelithiasis Mother Graciela Young Hypertension Father Danyel Almaguer Other (Seasonal Allergies) Daughter Savannah ADD / [...] Constitutional: Appearance: Normal appearance. She is well-developed. Genitourinary: Vulva normal. Cardiovascular: Rate and Rhythm: Normal rate and [...] nursing note reviewed. Exam conducted with a bacon slicer present. Vitals: Estimated body mass index is 33.33 kg/m as calculated from the following: Height as of 02/12/23: 5' 7 . Weight as of this encounter: 212 lb 12.8 oz. BP: 126/80 Patient's last menstrual period was 07/28/2023. ASSESSMENT & PLAN ICD-10-CM 1. 19 weeks gestation of Z3A.19 POCT urinalysis dipstick manually resulted Alpha fetoprotein, maternal Alpha fetoprotein, maternal 2. Exposure to STD Z20.2 CHLAMYDIA TRACHOMATIS (GENITO/STI) Neisseria gonorrhea DNA probe, direct 3. Vaginal discharge N89.8 SURESWAB(R) ADVANCED VAGINITIS PLUS, TMA Annual Exam: Patient presents today for vaginal culture exam. Patient states she is doing well and has no complaints. Cultures was obtained without difficulty. Orders Placed This Encounter Procedures CHLAMYDIA TRACHOMATIS (GENITO/STI) Neisseria gonorrhea DNA probe, direct Alpha fetoprotein, maternal POCT urinalysis dipstick manually resulted Follow Up: Patient is to return in one year for annual unless needed otherwise. Documented by Belen Oconnell LPN on behalf of: Rogers Ramirez DO documented in this encounter [facility] 11-15-2023 History of Presen t illness Narrative Reason for Appointment: Patient ID: Moira Starr is a 38 y.o. female who presents for Routine Visit Patient presents today for Return OB appointment. MEDICATIONS Current Outpatient Medications Medication Instructions ergocalciferol (VITAMIN D2) 1.25 mg, Oral, Weekly MV-Min-Fe Fum-FA-DHA ( 1 PO) Oral saccharomyces boulardii (FLORASTOR) 250 mg, Oral, 2 times daily ALLERGIES Allergies Allergen Reactions Sertraline Other Flat emotions Other Reaction(s): decreased emotional lability PROBLEMS Active Ambulatory Problems Diagnosis Date Noted Attention deficit hyperactivity disorder (ADHD) (CMS/[facility]) 09/15/2022 Cervicalgia 09/15/2022 Chronic fatigue 09/15/2022 Chronic tension-type headache, not intractable 09/15/2022 Generalized anxiety disorder (CMS/HCC) 09/15/2022 HPV (human papilloma virus) infection 09/15/2022 Large breasts 09/15/2022 LGSIL on Pap smear of cervix 09/15/2022 Migraine with aura and without status migrainosus, not intractable (CMS/HCC) 09/15/2022 Missed period 09/15/2022 Moderate recurrent major depression (HCC) (CMS/HCC) 09/15/2022 Other chronic pain 09/15/2022 Radicular [...] Types: Cigarettes Quit date: 08/19/2011 Years since quittin.2 Smokeless tobacco: Never Substance Use Topics Alcohol use: Not Currently Comment: Caffeine: 1-2 cups/day Drug use: Never FAMILY HISTORY Family History Problem Relation Name Age of Onset Hypertension Mother Graciela Young Cancer Mother Graciela Young colon cancer in remission Cholelithiasis Mother Graciela Young Hypertension Father Danyel Almaguer Other (Seasonal Allergies) Daughter Savannah ADD / ADHD Son Elias Other (Seasonal Allergies) Son Elias Hypertension Other Grandparent Color blindness Other Grandparent Diabetes Other Grandparent AODM Hyperparathyroidism Other Grandparent malignant-resected Kyphosis Other Aunt/Unlce Scheuermann Kyphosis Sibling Scheuermann Cholelithiasis Sibling Other (Other) Sibling SURGICAL HISTORY History reviewed. No pertinent surgical history. REVIEW OF SYSTEMS Review of Systems: Review of Systems OBJECTIVE Objective: OBGyn Exam Vitals: Estimated body mass index is 33.11 kg/m as calculated from the following: Height as of 02/12/23: 5' 7 . Weight as of this encounter: 211 lb 6.4 oz. BP: 118/78 Patient's last menstrual period was 07/28/2023. ASSESSMENT & PLAN ICD-10-CM 1. Second trimester Z34.92 Urine dip New OB: Patient presents today for 1st time obstetrics appointment with provider. Patient is currently 15w5d . Patients history has been reviewed in great detail including any potential risks. Patient stated she currently has no complaints. Expectations throughout regarding labs, ultrasounds, and appointments have been discussed with the patient in detail. It was reiterated that the patient is to drink 6-8 glasses of water a day, eat 6 small meals a day, do not consume raw or undercooked meat, and stay away from [facility]. Patient has been consulted regarding any further do's and don'ts of . Patient voiced understanding and all questions and concerns were answered. Patient desires continuous glucose monitoring with [employer] Libre2 and be proactive for checking sugars. Early 1 hour ordered. Orders Placed This Encounter Procedures Urine dip Follow Up: Patient is to return in 4 weeks for routine OB appointment. Documented by Belen Oconnell LPN on behalf of: Iveth Hood PA-C documented in this encounter [facility] 03-01-2021 Evaluation note Encounter Date Diagnosis Assessment [...] M24.022) Feb, Pre-op exam (ICD-10 - Z01.818) [employer] Other Evaluation note* Diagnosis Second trimester state, incidental 23 weeks gestation of [facility] Diagnosis 24 weeks gestation of size consistent with dates during in second trimester [facility]* Diagnosis 29 weeks gestation of Third trimester state, incidental Diabetes mellitus screening Screening for diabetes mellitus [facility]* Diagnosis Second trimester state, incidental History of gestational diabetes Personal history of other genital system and obstetric disorders Diabetes mellitus screening Screening for diabetes mellitus Screening, , for anatomic survey Encounter for anatomic survey [facility]* Diagnosis 19 weeks gestation of Exposure to STD Vaginal discharge Leukorrhea, not specified as infective Elevated glucose Other abnormal glucose [facility]* Diagnosis 32 weeks gestation of Third trimester state, incidental History of gestational diabetes Personal history of other genital system and obstetric disorders Anemia, unspecified type [facility] Narrative - Reported* Type Description Date Medical History [facility] [employer] Other Summary Purpose Family History No Family History Records FoundNo Family History Records FoundNo Family History Records FoundNo Family History Records FoundNo Family History Records Found Advance Directives No Advanced Directives Records FoundNo Advanced Directives Records FoundNo Advanced Directives Records FoundNo Advanced Directives Records FoundNo Advanced Directives Records Found Additional Source Comments INFORMATION SOURCE (unrecogn ized section and content) DATE CREATED AUTHOR 09/14/2020 [facility] DATE CREATED AUTHOR AUTHOR'S ORGANIZ ATION 10/06/2021 [facility] DATE CREATED AUTHOR AUTHOR'S ORGANIZ ATION 06/08/2022 [facility] DATE CREATED AUTHOR AUTHOR'S ORGANIZ ATION 02/06/2024 [facility] DATE CREATED AUTHOR AUTHOR'S ORGANIZ ATION 03/12/2024 [facility] EPIC REASON FOR VISIT (unrecogniz ed section and content) Reason Comments Routine Visit Reason Comments Routine Visit STI Screening Care Teams (unrecognized sec tion and content) Animal Care Assistant Relationship Specialty Start Date End Date Emily Alfaro DO [address] [place] [address] PCP - General Family Medicine 09/14/22 Animal Care Assistant Relationship Specialty Start Date End Date Angelina Emily G, [address] [place] [address] PCP - General Family Medicine 09/14/22 Animal Care Assistant Relationship Specialty Start Date End Date Angelina Emily G, [address] [place] [address] PCP - General Family Medicine 09/14/22 Animal Care Assistant Relationship Specialty Start Date End Date AngelinaDarrickninoska PimentelDO [address] [place] [address] PCP - General Family Medicine 09/14/22 Animal Care Assistant Relationship Specialty Start Date End Date AngelinaEmily LorenDO [address] [place] [address] PCP - General Family Medicine 09/14/22 Animal Care Assistant Relationship Specialty Start Date End Date AngelinaDarrickninoska PimentelDO [address] [place] [address] PCP - General Family Medicine 09/14/22 Animal Care Assistant Relationship Specialty Start Date End Date AngelinaEmily LorenDO [address] [place] [address] PCP - General Family Medicine 09/14/22 Animal Care Assistant Relationship Specialty Start Date End Date AngelinaDarrickninoska PimentelDO [address] [place] [address] PCP - General Family Medicine 09/14/22 Animal Care Assistant Relationship Specialty Start Date End Date Emily Alfaro LorenDO [address] [place] [address] PCP - General Family Medicine 09/14/22 Animal Care Assistant Relationship Specialty Start Date End Date Emily Alfaro DO [address] [place], [place] [id number] PCP - General Family Medicine 09/14/22 FOR RECORDS PERTAINING TO PATIENTS WHO [...] BE BASED ON THE PRIMARY CLINICAL RECORDS. [facility] [employer] [facility]. provides no warranty or guarantee of the accuracy or completeness of information in this document.
[2024-03-15 08:42] VITALS: TEMP 36.7
[2024-03-15 08:44] VITALS: BP 115/63; PULSE 88
== END 2024-03-15 09:06 | disposition home or self-care (01) ==
LOC: FBCO 06:59 → FBC 08:08
PROVIDERS: PCP Family Medicine; Visit Provider Obstetrics & Gynecology
DX: O09.523 Supervision of elderly multigravida, third trimester (principal); Z86.32 Personal history of gestational diabetes; Z3A.33 33 weeks gestation of pregnancy
CPT/HCPCS: 76818

== ENCOUNTER 2024-03-22 05:48 | Outpatient (OUT) | payer OTHER, SELFPAY ==
[2024-03-22 09:54] VITALS: BP 124/67; PULSE 93
--- NOTE | 2024-03-22 10:42 | US_ITS ---
[address] [address] Patient Name: DANYELL ROSENBERG MRN: [id number] date: 1985 Sex: F Assigned Patient Location: [facility] [place] [place] Current Patient Location: [facility] [place] [place] Accession/Order Number: [id number] Exam Date: 03/22/2024 10:50 Report Date: 03/22/2024 11:58 At the request of: ROGERS HODGE Procedure: US OB BPP w non-stress EXAMINATION: US OB BPP w non-stress HISTORY: Add on COMPARISON: No relevant comparison available. TECHNIQUE: Ultrasound biophysical profile was performed in the radiology department. non-reactive stress testing was performed by nursing staff in the birthing center. FINDINGS: BREATHING MOVEMENTS: 2 GROSS BODY MOVEMENTS: 2 TONE: 2 QUALITATIVE AMNIOTIC FLUID VOLUME: 2 PRESENTATION: CEPHALIC HEART RATE: 141.36 bpm AMNIOTIC FLUID VOLUME: 14.0 cm GESTATIONAL AGE: 34 weeks 0 days US/US OB BPP w non-stress IMPRESSION: Total biophysical profile score: 8 Electronically authenticated by: CARIDAD DOBSON Date: 03/22/2024 11:58
== END 2024-03-22 11:08 | disposition home or self-care (01) ==
LOC: FBCO 05:49 → FBC 09:44
PROVIDERS: PCP Family Medicine; Visit Provider Obstetrics & Gynecology
DX: O09.523 Supervision of elderly multigravida, third trimester (principal); Z3A.34 34 weeks gestation of pregnancy
CPT/HCPCS: 76818

== ENCOUNTER 2024-03-27 01:11 | Outpatient (OUT) | payer OTHER, SELFPAY ==
--- OUTSIDE RECORDS SUMMARY | 2024-03-19 05:23 | XMS_ITS | CCD ---
Author Organization [facility]ini[facility] Care Team Providers Care Hose Turner Name Role Phone HUBER LUNDBERG Attending Unavailable [...] Unavailable JAMES ., DR MCCLOUD Admitting Unavailable [place], DR CARIDAD [employer] Unavailable JAMES ., [...] Angelina DO, Emily G Primary Care Provider [phone] SRIDEVI FREITAS Attending Unavailable ANGELINA, EMILY G [...] Orally Twice a day Active Continuous Glucose Financial Manager (FreeStyle Adriana 2 [place]) device (20 sources) Start: 11-15-2023 Continuous Glucose Financial Manager (FreeStyle Adriana 2 [place]) device Indications: History of gestational diabetes 1 Device in the morning and 1 Device at noon and 1 Device in the evening and 1 Device before bedtime. 1 each 11/15/2023 Active Continuous Glucose Sensor (FreeStyle Adriana 2 Plus Sensor) [facility] (2 sources) Start: 03-10-2024 End: 04-09-2024 Continuous Glucose Sensor (FreeStyle Adriana 2 Plus Sensor) [facility] Indications: History of gestational diabetes 1 Units every 14 (fourteen) days 2 each 3 03/10/2024 04/09/2024 Active ergocalciferol 1.25 mg oral capsule (15 sources) Provitamin D2 Compound Start: 02-14-2023 End: 02-14-2024 take 1 capsule by mouth every week ergocalciferol (Vitamin D2) 1.25 MG (09686 UT) capsule Indications: Vitamin D deficiency Take [...] 12-13-2023 End: 01-12-2024 Continuous Glucose Sensor mi pr Indications: Elevated glucose 1 Device every 14 [...] UA Positive Negative - 4(70) +++ mg/dL [facility] Comment on above: small Blood, UA Negative Negative - 50 Andrew/mcL [facility] Clarity, UA Clear [facility] Color, UA Yellow [facility] Glucose, UA Negative Negative - 1999(110) ++++ mg/dL [facility] Interpretation and review of laboratory results Abnormal [facility] Ketones, UA Positive Negative - 160(16) ++++ mg/dL [facility] Comment on above: trace Leukocytes, UA Negative Negative - 500+++ Lore/mcL [facility] Nitrite, UA Negative Negative - Positive [facility] pH, UA 6 5 - 9 [facility] Protein, UA Positive Negative - 1999(20) ++++ mg/dL [facility] Comment on above: 30 Spec Grav, UA 1.025 1 - 1.03 [facility] Urobilinogen, UA 1.0 0.2 - 12 mg/dL [facility] MLR HEMOGLOBIN A1Con 024 Glucose [Mass/Vol] 114 mg/dL [facility] HbA1c (Bld) [Mass fraction] 5.6 % 4.5 - 6.2 % [facility] Comment on above: ADA RECOMMENDED LIMI T 4.0 - 6.0 ADA THERAPEUTIC TARGET < 7.0 ACTION SUGGESTED > 7.0 [facility] Urinalysis macro (dipstick) panel (U)on 02-20-2024 Bilirubin, UA Positive Negative - 4(70) +++ mg/dL [facility] Comment on above: small Blood, UA Negative Negative - 50 Andrew/mcL [facility] Clarity, UA Clear [facility] Color, UA Yellow [facility] Glucose, UA Negative Negative - 1999(110) ++++ mg/dL [facility] Interpretation and review of laboratory results Abnormal [facility] Ketones, UA Positive Negative - 160(16) ++++ mg/dL [facility] Comment on above: trace Leukocytes, UA Negative Negative - 500+++ Lore/mcL [facility] Nitrite, UA Negative Negative - Positive [facility] pH, UA 6 5 - 9 [facility] Protein, UA Trace Negative - 1999(20) ++++ mg/dL [facility] Spec Grav, UA 1.03 1 - 1.03 [facility] Urobilinogen, UA 1.0 0.2 - 12 mg/dL [facility] Urinalysis macro (dipstick) panel (U)on 01-10-2024 Bilirubin, UA Negative Negative - 4(70) +++ mg/dL [facility] Blood, UA Negative Negative - 50 Andrew/mcL [facility] Clarity, UA Clear [facility] Color, UA Yellow [facility] Glucose, UA Negative Negative - 1999(110) ++++ mg/dL [facility] Interpretation and review of laboratory results Normal [facility] Ketones, UA Negative Negative - 160(16) ++++ mg/dL [facility] Leukocytes, UA Negative Negative - 500+++ Lore/mcL [facility] Nitrite, UA Negative Negative - Positive [facility] pH, UA 5.5 5 - 9 [facility] Protein, UA Negative Negative - 1999(20) ++++ mg/dL [facility] Spec Grav, UA 1.02 1 - 1.03 [facility] Urobilinogen, UA 1.0 0.2 - 12 mg/dL [facility] URETHRITIS/DISCHARGE PLUS VA GINITIS (HTRX)on 12-14-2023 ATOPOBIUM VAGINAE 0.000 [facility] ATOPOBIUM VAGINAE Not detected [facility] BVAB 2,3 (BACTERIAL VAGINOSIS ASSOCIATED BACTERIA 2, 3); MOBILUNCUS SPP 26.743 Abnormal [facility] BVAB 2,3 (BACTERIAL VAGINOSIS ASSOCIATED BACTERIA 2, 3); MOBILUNCUS SPP Detected Abnormal [facility] TATYANA ALBICANS, PARAPSILOSIS, TROPICALIS 0.000 [facility] TATYANA ALBICANS, PARAPSILOSIS, TROPICALIS Not detected [facility] TATYANA GLABRATA 0.000 [facility] TATYANA GLABRATA Not detected [facility] TATYANA KRUSEI 0.000 [facility] TATYANA KRUSEI Not detected [facility] CHLAMYDIA TRACHOMATIS 0.000 [facility] CHLAMYDIA TRACHOMATIS Not detected [facility] GARDNERELLA VAGINALIS 0.000 [facility] GARDNERELLA VAGINALIS Not detected [facility] Interpretation and review of laboratory results Abnormal [facility] MEGASPHAERA (TYPES 1, 2) 0.000 [facility] MEGASPHAERA (TYPES 1, 2) Not detected [facility] MYCOPLASMA GENITALIUM 0.000 [facility] MYCOPLASMA GENITALIUM Not detected [facility] NEISSERIA GONORRHOEAE 0.000 [facility] NEISSERIA GONORRHOEAE Not detected [facility] TRICHOMONAS VAGINALIS 0.000 [facility] TRICHOMONAS VAGINALIS Not detected [facility] Urinalysis macro (dipstick) panel (U)on 12-13-2023 Bilirubin, UA Negative Negative - 4(70) +++ mg/dL [facility] Blood, UA Negative Negative - 50 Andrew/mcL [facility] Clarity, UA Clear [facility] Color, UA Yellow [facility] Glucose, UA Negative Negative - 1999(110) ++++ mg/dL [facility] Interpretation and review of laboratory results Abnormal [facility] Ketones, UA Positive Negative - 160(16) ++++ mg/dL [facility] Comment on above: trace Leukocytes, UA Negative Negative - 500+++ Lore/mcL [facility] Nitrite, UA Negative Negative - Positive [facility] pH, UA 6.5 5 - 9 [facility] Protein, UA Negative Negative - 1999(20) ++++ mg/dL [facility] Spec Grav, UA 1.025 1 - 1.03 [facility] Urobilinogen, UA 1.0 0.2 - 12 mg/dL [facility] Urinalysis macro (dipstick) panel (U)on 11-15-2023 Bilirubin, UA Negative Negative - 4(70) +++ mg/dL [facility] Blood, UA Negative Negative - 50 Andrew/mcL [facility] Clarity, UA Clear [facility] Color, UA Yellow [facility] Glucose, UA Negative Negative - 1999(110) ++++ mg/dL [facility] Interpretation and review of laboratory results Normal [facility] Ketones, UA Negative Negative - 160(16) ++++ mg/dL [facility] Leukocytes, UA Negative Negative - 500+++ Lore/mcL [facility] Nitrite, UA Negative Negative - Positive [facility] pH, UA 5.5 5 - 9 [facility] Protein, UA Negative Negative - 1999(20) ++++ mg/dL [facility] Spec Grav, UA 1.020 1 - 1.03 [facility] Urobilinogen, UA 1.0 0.2 - 12 mg/dL [facility] ALL CBC WITH AUTO DIFFon BASOPHILS ABSOLUTE AUTO 0.0 [facility] Basophils/100 WBC (Bld) 0.4 % 0.2 - 2.0 % [facility] Eosinophils/100 WBC (Bld) 3.0 % 0.9 - 7.0 % [facility] Erythrocyte distribution width (RBC) [Ratio] 16.1 % High 11.0 - 15.0 % [facility] Hematocrit (Bld) [Volume fraction] 36.3 % 36.0 - 48.0 % [facility] Hemoglobin (Bld) [Mass/Vol] 11.4 g/dL Low 12.0 - 16.0 g/dL [facility] IMMATURE GRANULOCYTES ABS AUTO 0.03 [facility] Immature granulocytes/100 WBC (Bld) 0.3 % 0.0 - 0.5 % [facility] Interpretation and review of laboratory results Abnormal [facility] LYMPHOCYTES ABSOLUTE AUTO 2.2 [facility] Lymphocytes/100 WBC (Bld) 23.6 % 20.5 - 60.0 % [facility] MCH (RBC) [Entitic mass] 26.0 pg Low 26.7 - 34.0 pg [facility] MCHC (RBC) [Mass/Vol] 31.4 g/dL 29.9 - 35.2 g/dL [facility] MCV (RBC) [Entitic vol] 82.9 fL 81.0 - 99.0 fL [facility] MONOCYTES ABSOLUTE AUTO 0.5 [facility] Monocytes/100 WBC (Bld) 5.1 % 1.7 - 12.0 % [facility] NEUTROPHILS ABSOLUTE AUTO 6.2 [facility] Neutrophils/100 WBC (Bld) 67.6 % 43.0 - 75.0 % [facility] Platelet mean volume (Bld) [Entitic vol] 11.0 fL 9.5 - 13.5 fL [facility] EO # 0.3 [facility] PLT 271 [facility] RBC 4.38 [facility] WBC 9.2 [facility] Cytology Cervical or vaginal smear or scraping studyon 03-08-2023 [facility] CHLAMYDIA/GONOCOCCUS JESE ( AB/URINE/PAPon 06-01-2022 Chlamydia trachomatis, JESE Negative Normal Negative [facility] Comment on above: Performed By: #### P TT, PT #### [facility] [address] [place] [address] Dr. Todd Moreno Neisseria gonorrhoeae, JESE Negative Normal Negative [facility] Comment on above: Performed By: #### P TT, PT #### [facility] [address] [address] [address] Todd Moreno VAGINITIS/VAGINOSIS DNA PROB Shaheed 06-01-2022 Tatyana species Negative Normal Negative The [facility] Comment on above: Performed By: #### P TT, PT #### [facility] [address] [place] [address] Dr. Todd Moreno Gardnerella vaginalis Negative Normal Negative [facility] Comment on above: Performed By: #### P TT, PT #### [facility] [address] [place] [address] Dr. Todd Moreno Trichomonas vaginalis Negative Normal Negative [facility] Comment on above: Performed By: #### P TT, PT #### [facility] [address] [place] [address] Dr. Todd Moreno HEP B SURFACE ANTIGEN SCREEN on 03-22-2022 HBsAg Screen Negative Normal Negative [facility] Comment on above: Performed By: #### H BSANS #### [facility] [address] [place] [address] Dr. Todd Moreno HEPATITIS C VIRUS AB W/ REFL EX QUANTon 03-22-2022 HCV AB 0.1 s/co ratio Normal 0.0-0.9 [facility] Comment on above: Performed By: #### P TT, PT #### [facility] [address] [place] [address] Dr. Todd Moreno Interpretation: Comment Normal The [facility] Comment on above: Result Comment: Nega tive Not infected with HCV, unless recent infection is suspected or other evidence exists to indicate HCV infection. Performed By: #### P TT, PT #### [facility] [address] [place] [address] Dr. Todd Moreno HIV 1 AND 2 WITH REFLEXon HIV Screen 4th Generation wRfx Non-Reactive Normal Non Reactive [facility] Comment on above: Result Comment: HIV Negative HIV-1/HIV-2 antibodies and HIV-1 p24 antigen were NOT detected. There is no laboratory evidence of HIV infection. Performed By: #### H IV12 #### [facility] [address] [place] [address] Dr. Todd Moreno RPR QUANTon 03-22-2022 Rapid Plasma Reagin, Quant Non-Reactive Normal NonRea<1:1 [facility] Comment on above: Result [...] such as Treponema pallidum (Syphilis) Screening [place] (842454) or Rapid Plasma Reagin (RPR) Test With Reflex to Quantitative RPR and Confirmatory Treponema pallidum Antibodies (565562). Performed By: #### R PRQ #### [facility] [address] [place] [address] Dr. Todd Moreno RUBELLA AB IGGon 03-22-2022 Rubella Antibodies, IgG 5.11 index Normal Immune >0.99 [facility] Comment on above: Result Comment: Non- immune <0.90 Equivocal 0.90 - 0.99 Immune >0.99 Performed By: #### R PRQ #### [facility] [address] [place] [address] Dr. Todd Moreno CBC AUTO DIFFon 03-20-2022 BASO # 0.0 103/ul Normal 0.0-0.1 [facility] Comment on above: Performed By: #### P TT, PT #### [facility] [address] [place] [address] Dr. Todd Moreno Basophils/100 WBC (Bld) 0.3 % Normal 0.2-2.0 [facility] Comment on above: Performed By: #### P TT, PT #### [facility] [address] [place] [address] Dr. Todd Moreno EO # 0.1 103/ul Normal 0.0-0.7 [facility] Comment on above: Performed By: #### P TT, PT #### [facility] [address] [place] [address] Dr. Todd Moreno Eosinophils/100 WBC (Bld) 1.0 % Normal 0.9-7.0 [facility] Comment on above: Performed By: #### P TT, PT #### [facility] [address] [place] [address] Dr. Todd Moreno Erythrocyte distribution width (RBC) [Ratio] 14.4 % Normal 11.0-15.0 [facility] Comment on above: Performed By: #### P TT, PT #### [facility] [address] [place] [address] Dr. Todd Moreno Hematocrit (Bld) [Volume fraction] 38.2 % Normal 36.0-48.0 [facility] Comment on above: Performed By: #### P TT, PT #### [facility] [address] [place] [address] Dr. Todd Moreno Hemoglobin (Bld) [Mass/Vol] 12.2 g/dL Normal 12.0-16.0 [facility] Comment on above: Performed By: #### P TT, PT #### [facility] [address] [place] [address] Dr. Todd Moreno IG # 0.03 10e3/ul Normal 0.00-0.03 [facility] Comment on above: Performed By: #### P TT, PT #### [facility] [address] [place] [address] Dr. Todd Moreno IG % 0.3 % Normal 0.0-0.5 [facility] Comment on above: Performed By: #### P TT, PT #### [facility] [address] [place] [address] Dr. Todd Moreno LYMPH # 1.9 103/ul Normal 1.2-3.8 [facility] Comment on above: Performed By: #### P TT, PT #### [facility] [address] [place] [address] Dr. Todd Moreno Lymphocytes/100 WBC (Bld) 19.0 % Critically low 20.5-60.0 [facility] Comment on above: Performed By: #### P TT, PT #### [facility] [address] [place] [address] Dr. Todd Moreno MANUAL DIFF REQ NO Normal [facility] Comment on above: Performed By: #### P TT, PT #### [facility] [address] [place] [address] Dr. Todd Moreno MCH (RBC) [Entitic mass] 26.1 pg Critically low 26.7-34.0 [facility] Comment on above: Performed By: #### P TT, PT #### [facility] [address] [place] [address] Dr. Todd Moreno MCHC (RBC) [Mass/Vol] 31.9 g/dL Normal 29.9-35.2 [facility] Comment on above: Performed By: #### P TT, PT #### [facility] [address] [place] [address] Dr. Todd Moreno MCV (RBC) [Entitic vol] 81.6 fL Normal 81.0-99.0 [facility] Comment on above: Performed By: #### P TT, PT #### [facility] [address] [place] [address] Dr. Todd Moreno MONO # 0.4 103/ul Normal 0.3-0.8 [facility] Comment on above: Performed By: #### P TT, PT #### [facility] [address] [place] [address] Dr. Todd Moreno Monocytes/100 WBC (Bld) 4.4 % Normal 1.7-12.0 [facility] Comment on above: Performed By: #### P TT, PT #### [facility] [address] [place] [address] Dr. Todd Moreno NEUT # 7.5 103/ul Critically high 1.4-6.5 The [facility] Comment on above: Performed By: #### P TT, PT #### [facility] [address] [place] [address] Dr. Todd Moreno Neutrophils/100 WBC (Bld) 75.0 % Normal 43.0-75.0 [facility] Comment on above: Performed By: #### P TT, PT #### [facility] [address] [place] [address] Dr. Todd Moreno Platelet mean volume (Bld) [Entitic vol] 10.4 fL Normal 9.5-13.5 [facility] Comment on above: Performed By: #### P TT, PT #### [facility] [address] [place] [address] Dr. Todd Moreno PLT 302 103/ul Normal 150-450 [facility] Comment on above: Performed By: #### P TT, PT #### [facility] [address] [place] [address] Dr. Todd Moreno RBC 4.68 106/ul Normal 4.20-5.40 [facility] Comment on above: Performed By: #### P TT, PT #### [facility] [address] [place] [address] Dr. Todd Moreno WBC 10.1 103/ul Normal 4.0-11.0 [facility] Comment on above: Performed By: #### P TT, PT #### [facility] [address] [place] [address] Dr. Todd Moreno CULTURE URINEon 03-20-2022 CULTURE URINE Culture Observations : MODERATE GROWTH OF MIXED GENITAL LORA. NO POTENTIAL PATHOGENS SEEN. Normal [facility] Comment on above: Performed By: #### P TT, PT #### [facility] [address] [place] [address] Dr. Todd Moreno GLYCOHEMOGLOBIN A1Con 2022 ADA RECOMMENDATION SEE BELOW Normal [facility] Comment on above: Result Comment: ADA RECOMMENDED LIMIT 4.0 - 6.0 ADA THERAPEUTIC TARGET < 7.0 ACTION SUGGESTED > 7.0 Performed By: #### A 1C #### [facility] [address] [place] [address] Dr. Todd Moreno Glucose [Mass/Vol] 105 mg/dL Normal [facility] Comment on above: Performed By: #### A 1C #### [facility] [address] [place] [address] Dr. Todd Moreno HbA1c (Bld) [Mass fraction] 5.3 % Normal 4.5-6.2 [facility] Comment on above: Performed By: #### A 1C #### [facility] [address] [address] [address] Todd Moreno BENJAMIN BOX TEST PT SEND OUTo n 03-20-2022 SENT TO REF LAB 03/20/2022 Normal [facility] Comment on above: Performed By: #### P TT, PT #### [facility] [address] [place], [place] [address] Dr. Todd Moreno TYPE AND SCREENon 03-20-2022 TYPE AND SCREEN Negative Normal The [facility] Comment on above: Performed By: #### P TT, PT #### [facility] [address] [place], [place] [address] Dr. Todd Moreno US PREG TVon 02-24-2022 [...] by: CARIDAD DOBSON Date: 2022-02-24 16:16 Normal [facility] CULTURE URINEon 02-03-2022 CULTURE URINE [...] F Oxacillin 0.5 S F Normal [facility] Comment on above: Performed By: #### P TT, PT #### [facility] [address] [address] [address] Todd Moreno US PREG TVon 02-01-2022 [...] ETHAN MERCER Date: 2022-01-31 22:05 Normal [facility] CBC AUTO DIFFon 01-31-2022 BASO # 0.1 103/ul Normal 0.0-0.1 [facility] Comment on above: Performed By: #### P TT, PT #### [facility] [address] [address] [address] Todd Moreno Basophils/100 WBC (Bld) 0.8 % Normal 0.2-2.0 [facility] Comment on above: Performed By: #### P TT, PT #### [facility] [address] [place] [address] Dr. Todd Moreno EO # 0.5 103/ul Normal 0.0-0.7 [facility] Comment on above: Performed By: #### P TT, PT #### [facility] [address] [place] [address] Dr. Todd Moreno Eosinophils/100 WBC (Bld) 5.4 % Normal 0.9-7.0 [facility] Comment on above: Performed By: #### P TT, PT #### [facility] [address] [place] [address] Dr. Todd Moreno Erythrocyte distribution width (RBC) [Ratio] 15.0 % Normal 11.0-15.0 [facility] Comment on above: Performed By: #### P TT, PT #### [facility] [address] [place] [address] Dr. Todd Moreno Hematocrit (Bld) [Volume fraction] 34.3 % Critically low 36.0-48.0 [facility] Comment on above: Performed By: #### P TT, PT #### [facility] [address] [place] [address] Dr. Todd Moreno Hemoglobin (Bld) [Mass/Vol] 11.2 g/dL Critically low 12.0-16.0 [facility] Comment on above: Performed By: #### P TT, PT #### [facility] [address] [place] [address] Dr. Todd Moreno IG # 0.02 10e3/ul Normal 0.00-0.03 [facility] Comment on above: Performed By: #### P TT, PT #### [facility] [address] [place] [address] Dr. Todd Moreno IG % 0.2 % Normal 0.0-0.5 [facility] Comment on above: Performed By: #### P TT, PT #### [facility] [address] [place] [address] Dr. Todd Moreno LYMPH # 2.7 103/ul Normal 1.2-3.8 [facility] Comment on above: Performed By: #### P TT, PT #### [facility] [address] [place] [address] Dr. Todd Moreno Lymphocytes/100 WBC (Bld) 29.9 % Normal 20.5-60.0 [facility] Comment on above: Performed By: #### P TT, PT #### [facility] [address] [place] [address] Dr. Todd Moreno MANUAL DIFF REQ NO Normal [facility] Comment on above: Performed By: #### P TT, PT #### [facility] [address] [place] [address] Dr. Todd Moreno MCH (RBC) [Entitic mass] 26.7 pg Normal 26.7-34.0 [facility] Comment on above: Performed By: #### P TT, PT #### [facility] [address] [place] [address] Dr. Todd Moreno MCHC (RBC) [Mass/Vol] 32.7 g/dL Normal 29.9-35.2 [facility] Comment on above: Performed By: #### P TT, PT #### [facility] [address] [place] [address] Dr. Todd Moreno MCV (RBC) [Entitic vol] 81.7 fL Normal 81.0-99.0 [facility] Comment on above: Performed By: #### P TT, PT #### [facility] [address] [place] [address] Dr. Todd Moreno MONO # 0.5 103/ul Normal 0.3-0.8 [facility] Comment on above: Performed By: #### P TT, PT #### [facility] [address] [place] [address] Dr. Todd Moreno Monocytes/100 WBC (Bld) 5.7 % Normal 1.7-12.0 [facility] Comment on above: Performed By: #### P TT, PT #### [facility] [address] [place] [address] Dr. Todd Moreno NEUT # 5.2 103/ul Normal 1.4-6.5 [facility] Comment on above: Performed By: #### P TT, PT #### [facility] [address] [place] [address] Dr. Todd Moreno Neutrophils/100 WBC (Bld) 58.0 % Normal 43.0-75.0 [facility] Comment on above: Performed By: #### P TT, PT #### [facility] [address] [place] [address] Dr. Todd Moreno Platelet mean volume (Bld) [Entitic vol] 10.4 fL Normal 9.5-13.5 [facility] Comment on above: Performed By: #### P TT, PT #### [facility] [address] [place] [address] Dr. Todd Moreno PLT 270 103/ul Normal 150-450 [facility] Comment on above: Performed By: #### P TT, PT #### [facility] [address] [place] [address] Dr. Todd Moreno RBC 4.20 106/ul Normal 4.20-5.40 [facility] Comment on above: Performed By: #### P TT, PT #### [facility] [address] [place] [address] Dr. Todd Moreno WBC 9.1 103/ul Normal 4.0-11.0 [facility] Comment on above: Performed By: #### P TT, PT #### [facility] [address] [place] [address] Dr. Todd Moreno ER URINE PROFILEon 2 Bilirubin Ql (U) Negative Normal NEGATIVE [facility] Comment on above: Performed By: #### P TT, PT #### [facility] [address] [place] [address] Dr. Todd Moreno Clarity (U) CLEAR Normal CLEAR [facility] Comment on above: Performed By: #### P TT, PT #### [facility] [address] [place] [address] Dr. Todd Moreno Color (U) YELLOW Normal YELLOW [facility] Comment on above: Performed By: #### P TT, PT #### [facility] [address] [place] [address] Dr. Todd SALINAS A micrscopic examination will be performed if indicated. Normal [facility] Comment on above: Performed By: #### P TT, PT #### [facility] [address] [address] [address] Todd Moreno Glucose Ql (U) Negative Normal NEGATIVE [facility] Comment on above: Performed By: #### P TT, PT #### [facility] [address] [place] [address] Dr. Todd Moreno Hemoglobin Ql (U) TRACE-INTACT Abnormal NEGATIVE [facility] Comment on above: Performed By: #### P TT, PT #### [facility] [address] [place] [address] Dr. Todd Moreno Ketones Ql (U) Negative Normal NEGATIVE [facility] Comment on above: Performed By: #### P TT, PT #### [facility] [address] [place] [address] Dr. Todd Moreno LEUKOCYTES SMALL Abnormal NEGATIVE [facility] Comment on above: Performed By: #### P TT, PT #### [facility] [address] [place] [address] Dr. Todd Moreno Nitrite Ql (U) Negative Normal NEGATIVE [facility] Comment on above: Performed By: #### P TT, PT #### [facility] [address] [place] [address] Dr. Todd Moreno pH (U) 6.5 [pH] Normal 5-9 [facility] Comment on above: Performed By: #### P TT, PT #### [facility] [address] [place] [address] Dr. Todd Moreno SPEC GRAVITY 1.015 Normal 1.005-<=1.025 The [facility] Comment on above: Performed By: #### P TT, PT #### [facility] [address] [place] [address] Dr. Todd Moreno UA PROTEIN Negative Normal NEGATIVE/ TRACE [facility] Comment on above: Performed By: #### P TT, PT #### [facility] [address] [place] [address] Dr. Todd Moreno UR MICRO IND INDICATED Normal [facility] Comment on above: Performed By: #### P TT, PT #### [facility] [address] [place] [address] Dr. Todd Moreno Urobilinogen Qn (U) 0.2 {Tiffany'U}/dL Normal 0.2 - 1. 0 [facility] Comment on above: Performed By: #### P TT, PT #### [facility] [address] [place] [address] Dr. Todd Moreno LIPASEon 01-31-2022 Lipase [Catalytic activity/Vol] 123.0 U/L Normal 73.0-393.0 [facility] Comment on above: Performed By: #### C MP, LIPA #### [facility] [address] [place] [address] Dr. Todd Moreno PREG QUANT HCGon 01-31-2022 HCG QUANT 711 mIU/mL Normal [facility] Comment on above: Performed By: #### P TT, PT #### [facility] [address] [place] [address] Dr. Todd Moreno HCG RANGE SEE BELOW Normal [facility] Comment on above: Result Comment: 5-50 0.2-1 WEEK 50-500 1-2 WEEKS 100-5,000 2-3 WEEKS 500-10,000 3-4 WEEKS 1,000-50,000 4-5 WEEKS 10,000-100,000 5-6 WEEKS 15,000-200,000 6-8 WEEKS 10,000-100,000 2-3 MONTHS Performed By: #### P TT, PT #### [facility] [address] [place] [address] Dr. Todd Moreno PROF 14(COMP METB)on 022 Albumin [Mass/Vol] 3.7 g/dL Normal 3.4-5.0 [facility] Comment on above: Performed By: #### C MP, LIPA #### [facility] [address] [place] [address] Dr. Todd Moreno Albumin/Globulin [Mass ratio] 1.0 {ratio} Normal [facility] Comment on above: Performed By: #### C MP, LIPA #### [facility] [address] [address] [address] Todd Moreno ALP [Catalytic activity/Vol] 80 U/L Normal 46-116 [facility] Comment on above: Performed By: #### C MP, LIPA #### [facility] [address] [address] [address] Todd Moreno ALT [Catalytic activity/Vol] 23 U/L Normal 14-59 [facility] Comment on above: Performed By: #### C MP, LIPA #### [facility] [address] [address] [address] Todd Moreno Anion gap [Moles/Vol] 10.2 mmol/L Normal [facility] Comment on above: Performed By: #### C MP, LIPA #### [facility] [address] [address] [address] Todd Moreno AST [Catalytic activity/Vol] 14 U/L Critically low 15-37 [facility] Comment on above: Performed By: #### C MP, LIPA #### [facility] [address] [address] [address] Todd Moreno Bilirubin [Mass/Vol] 0.3 mg/dL Normal 0.2-1.0 [facility] Comment on above: Performed By: #### C MP, LIPA #### [facility] [address] [address] [address] Todd Moreno Calcium [Mass/Vol] 9.1 mg/dL Normal 8.5-10.1 [facility] Comment on above: Performed By: #### C MP, LIPA #### [facility] [address] [address] [address] Todd Moreno Chloride [Moles/Vol] 104 mmol/L Normal 98-107 [facility] Comment on above: Performed By: #### C MP, LIPA #### [facility] [address] [address] [address] Todd Moreno CO2 [Moles/Vol] 26.8 mmol/L Normal 21.0-32.0 [facility] Comment on above: Performed By: #### C MP, LIPA #### [facility] [address] [address] [address] Todd Moreno Creatinine [Mass/Vol] 0.87 mg/dL Normal 0.55-1.02 [facility] Comment on above: Performed By: #### C MP, LIPA #### [facility] [address] [address] [address] Todd Moreno EGFR-AF ZAMBIAN >60 Normal >=60 [facility] Comment on above: Performed By: #### C MP, LIPA #### [facility] [address] [address] [address] Todd Moreno EGFR-NON AF ZAMBIAN >60 Normal >=60 [facility] Comment on above: Performed By: #### C MP, LIPA #### [facility] [address] [address] [address] Todd Moreno Globulin (S) [Mass/Vol] 3.7 g/dL Normal [facility] Comment on above: Performed By: #### C MP, LIPA #### [facility] [address] [address] [address] Todd Moreno Glucose [Mass/Vol] 98 mg/dL Normal 74-106 [facility] Comment on above: Performed By: #### C MP, LIPA #### [facility] [address] [address] [address] Todd Moreno Potassium [Moles/Vol] 4.0 mmol/L Normal 3.5-5.1 [facility] Comment on above: Performed By: #### C MP, LIPA #### [facility] [address] [address] [address] Todd Moreno Protein [Mass/Vol] 7.4 g/dL Normal 6.4-8.2 [facility] Comment on above: Performed By: #### C MP, LIPA #### [facility] [address] [address] [address] Todd Moreno Sodium [Moles/Vol] 137 mmol/L Normal 136-145 [facility] Comment on above: Performed By: #### C MP, LIPA #### [facility] [address] [place] [address] Dr. Todd Moreno Urea nitrogen [Mass/Vol] 15.0 mg/dL Normal 7.0-18.0 [facility] Comment on above: Performed By: #### C MP, LIPA #### [facility] [address] [place] [address] Dr. Todd Moreno Urea nitrogen/Creatinine [Mass ratio] 17.2 mg/mg Normal [facility] Comment on above: Performed By: #### C MP, LIPA #### [facility] [address] [place] [address] Dr. Todd Moreno URINE MICROSCOPIC ONLYon BACTERIA SMALL Abnormal NONE SEEN [facility] Comment on above: Performed By: #### P TT, PT #### [facility] [address] [place] [address] Dr. Todd Moreno Bacteria identified Cx Nom (U) INDICATED Normal [facility] Comment on above: Performed By: #### P TT, PT #### [facility] [address] [place] [address] Dr. Todd Moreno CAST NONE SEEN Normal NONE SEEN [facility] Comment on above: Performed By: #### P TT, PT #### [facility] [address] [place] [address] Dr. Todd Moreno Crystals LM Nom (Urine sed) NONE SEEN Normal NONE SEEN [facility] Comment on above: Performed By: #### P TT, PT #### [facility] [address] [place] [address] Dr. Todd Moreno Epithelial cells LM Ql (Urine sed) FEW Abnormal NONE SEEN /RARE [facility] Comment on above: Performed By: #### P TT, PT #### [facility] [address] [place] [address] Dr. Todd Moreno MUCOUS NONE SEEN Normal NONE SEEN [facility] Comment on above: Performed By: #### P TT, PT #### [facility] [address] [place] [address] Dr. Todd Moreno RBC 0-2 Normal 0-2 [facility] Comment on above: Performed By: #### P TT, PT #### [facility] [address] [place] [address] Dr. Todd Moreno WBC 10-20 Abnormal NONE SEEN [facility] Comment on above: Performed By: #### P TT, PT #### [facility] [address] [place] [address] Dr. Todd Moreno ESTROGENon 10-20-2021 Estrogens, Total 68 pg/mL Normal [facility] Comment on above: Result Comment: Prep ubertal < 40 Female Cycle: 1-10 Days 16 - 328 11-20 Days 34 - 501 21-30 Days 48 - 350 Post-Menopausal 40 - 244 Performed By: #### P TT, PT #### [facility] [address] [place] [address] Dr. Todd Moreno ESTRADIOLon 10-16-2021 Estradiol 62.1 pg/mL Normal [facility] Comment on above: Result Comment: Adul t Female: Follicular phase 12.5 - 166.0 Ovulation phase 85.8 - 498.0 Luteal phase 43.8 - 211.0 Postmenopausal <6.0 - 54.7 1st trimester 215.0 - >4300.0 Ramos ECLIA methodology Performed By: #### E STRADI #### [facility] [address] [place] [address] Dr. Todd Moreno FSHon 10-16-2021 FSH 5.6 mIU/mL Normal [facility] Comment on above: Result Comment: Adul t Female: Follicular phase 3.5 - 12.5 Ovulation phase 4.7 - 21.5 Luteal phase 1.7 - 7.7 Postmenopausal 25.8 - 134.8 Performed By: #### P TT, PT #### [facility] [address] [place] [address] Dr. Todd Moreno LUTEINIZING HORMONE (LH)on 0 10-16-2021 LH 12.1 mIU/mL Normal [facility] Comment on above: Result Comment: Adul t Female: Follicular phase 2.4 - 12.6 Ovulation phase 14.0 - 95.6 Luteal phase 1.0 - 11.4 Postmenopausal 7.7 - 58.5 Performed By: #### P TT, PT #### [facility] [address] [place] [address] Dr. Todd Moreno CBC AUTO DIFFon 10-15-2021 BASO # 0.0 103/ul Normal 0.0-0.1 [facility] Comment on above: Performed By: #### P TT, PT #### [facility] [address] [place] [address] Dr. Todd Moreno Basophils/100 WBC (Bld) 0.6 % Normal 0.2-2.0 [facility] Comment on above: Performed By: #### P TT, PT #### [facility] [address] [place] [address] Dr. Todd Moreno EO # 0.1 103/ul Normal 0.0-0.7 [facility] Comment on above: Performed By: #### P TT, PT #### [facility] [address] [place] [address] Dr. Todd Moreno Eosinophils/100 WBC (Bld) 2.1 % Normal 0.9-7.0 [facility] Comment on above: Performed By: #### P TT, PT #### [facility] [address] [place] [address] Dr. Todd Moreno Erythrocyte distribution width (RBC) [Ratio] 14.0 % Normal 11.0-15.0 [facility] Comment on above: Performed By: #### P TT, PT #### [facility] [address] [place] [address] Dr. Todd Moreno Hematocrit (Bld) [Volume fraction] 37.0 % Normal 36.0-48.0 [facility] Comment on above: Performed By: #### P TT, PT #### [facility] [address] [place] [address] Dr. Todd Moreno Hemoglobin (Bld) [Mass/Vol] 11.6 g/dL Critically low 12.0-16.0 [facility] Comment on above: Performed By: #### P TT, PT #### [facility] [address] [place] [address] Dr. Todd Moreno IG # 0.01 10e3/ul Normal 0.00-0.03 [facility] Comment on above: Performed By: #### P TT, PT #### [facility] [address] [place] [address] Dr. Todd Moreno IG % 0.2 % Normal 0.0-0.5 [facility] Comment on above: Performed By: #### P TT, PT #### [facility] [address] [place] [address] Dr. Todd Moreno LYMPH # 2.2 103/ul Normal 1.2-3.8 [facility] Comment on above: Performed By: #### P TT, PT #### [facility] [address] [place] [address] Dr. Todd Moreno Lymphocytes/100 WBC (Bld) 33.1 % Normal 20.5-60.0 [facility] Comment on above: Performed By: #### P TT, PT #### [facility] [address] [place] [address] Dr. Todd Moreno MANUAL DIFF REQ NO Normal [facility] Comment on above: Performed By: #### P TT, PT #### [facility] [address] [place] [address] Dr. Todd Moreno MCH (RBC) [Entitic mass] 26.3 pg Critically low 26.7-34.0 [facility] Comment on above: Performed By: #### P TT, PT #### [facility] [address] [place] [address] Dr. Todd Moreno MCHC (RBC) [Mass/Vol] 31.4 g/dL Normal 29.9-35.2 [facility] Comment on above: Performed By: #### P TT, PT #### [facility] [address] [place] [address] Dr. Todd Moreno MCV (RBC) [Entitic vol] 83.9 fL Normal 81.0-99.0 [facility] Comment on above: Performed By: #### P TT, PT #### [facility] [address] [place] [address] Dr. Todd Moreno MONO # 0.2 103/ul Critically low 0.3-0.8 [facility] Comment on above: Performed By: #### P TT, PT #### [facility] [address] [place] [address] Dr. Todd Moreno Monocytes/100 WBC (Bld) 3.5 % Normal 1.7-12.0 [facility] Comment on above: Performed By: #### P TT, PT #### [facility] [address] [place] [address] Dr. Todd Moreno NEUT # 4.0 103/ul Normal 1.4-6.5 [facility] Comment on above: Performed By: #### P TT, PT #### [facility] [address] [place] [address] Dr. Todd Moreno Neutrophils/100 WBC (Bld) 60.5 % Normal 43.0-75.0 [facility] Comment on above: Performed By: #### P TT, PT #### [facility] [address] [place] [address] Dr. Todd Moreno Platelet mean volume (Bld) [Entitic vol] 10.6 fL Normal 9.5-13.5 [facility] Comment on above: Performed By: #### P TT, PT #### [facility] [address] [place] [address] Dr. Todd Moreno PLT 263 103/ul Normal 150-450 [facility] Comment on above: Performed By: #### P TT, PT #### [facility] [address] [place] [address] Dr. Todd Moreno RBC 4.41 106/ul Normal 4.20-5.40 [facility] Comment on above: Performed By: #### P TT, PT #### [facility] [address] [place] [address] Dr. Todd Moreno WBC 6.6 103/ul Normal 4.0-11.0 [facility] Comment on above: Performed By: #### P TT, PT #### [facility] [address] [place] [address] Dr. Todd Moreno FREE T4on 10-15-2021 Free T4 [Mass/Vol] 1.05 ng/dL Normal 0.76-1.46 [facility] Comment on above: Performed By: #### P TT, PT #### [facility] [address] [place] [address] Dr. Todd Moreno PROTIMEon 10-15-2021 INR Coag (PPP) [Relative time] 1.02 {INR} Normal [facility] Comment on above: Performed By: #### P TT, PT #### [facility] [address] [place] [address] Dr. Todd Moreno INR GUIDELINES SEE BELOW Normal [facility] Comment on above: Result Comment: RAMÓN RED INR: 2.0 - 3.0 CONDITIONS NOT LISTED BELOW 2.5 - 3.5 FOR PROSTHETIC HEART VALVE REPLACEMENT 2.5 - 3.5 RECURRENT THROMBOSIS Performed By: #### P TT, PT #### [facility] [address] [place] [address] Dr. Todd Moreno PT Coag (PPP) [Time] 11.0 s Normal 9.0-11.6 [facility] Comment on above: Performed By: #### P TT, PT #### [facility] [address] [place] [address] Dr. Todd Moreno PTTon 10-15-2021 aPTT Coag (Bld) [Time] 32.4 s Normal 22.3-36.2 [facility] Comment on above: Performed By: #### P TT, PT #### [facility] [address] [place] [address] Dr. Todd Moreno TSHon 10-15-2021 TSH 1.777 uIU/mL Normal 0.358-3.740 [facility] Comment on above: Performed By: #### P TT, PT #### [facility] [address] [place] [address] Dr. Todd Moreno PAP ACOG PANEL 2: 30 to 65on 10-10-2021 . . Normal [facility] Comment on above: Result Comment: Perf ormed at: WB Performed By: #### [id number] #### [facility] [address] [address] [address] Todd Moreno Age Gdln ACOG Testing 30-65 Normal [facility] Comment on above: Performed By: #### [id number] #### [facility] [address] [address] [address] Todd Moreno DIAGNOSIS: Comment Normal [facility] Comment on above: Result Comment: NEGA TIVE FOR INTRAEPITHELIAL LESION OR MALIGNANCY. Performed at: WB Performed By: #### [id number] #### [facility] [address] [address] [address] Todd Moreno HPV Aptima Negative Normal Negative [facility] Comment on above: Result Comment: This nucleic acid amplification test detects fourteen high-risk HPV types (16,18,31,33,35,39,45,51,52,56,58,59,66,68) without differentiation. Performed at: =G Performed By: #### [id number] #### [facility] [address] [address] [address] Todd Moreno Methodology: Comment Normal [facility] Comment on above: Result Comment: This liquid based ThinPrep(R) pap test was screened with the use of an image guided system. Performed at: WB Performed By: #### [id number] #### [facility] [address] [place] [address] Dr. Todd Moreno Note: Comment Normal [facility] Comment on above: Result [...] Performed at: WB Performed By: #### [id number] #### [facility] [address] [address] [address] Todd Moreno Performed by: Comment Normal [facility] Comment on above: Result Comment: Magalie Lemus, Waste Reclaimer (ASCP) Performed at: WB Performed By: #### [id number] #### [facility] [address] [address] [address] Todd Moreno Specimen adequacy: Comment Normal [facility] Comment on above: Result Comment: Sati sfactory for evaluation. Endocervical and/or squamous metaplastic cells (endocervical component) are present. Performed at: WB Performed By: #### [id number] #### [facility] [address] [place], [place] [address] Dr. Todd Moreno COVID-19 Antigenon 2 COVID-19 [...] its performance Corinne Disclaimer characteristic determined by [employer] and Corinne Disclaimer validated at [facility]. This Corinne Disclaimer test has not [...] is terminated or revoked sooner. PERFORMED BY: [place] [address] PATHOLOGIST FILTER BED PLACER JONATHAN SHEPARD M.D. Normal [facility] Comment on above: Performed By: #### S OFIANEG, COVID-19 CORINNE #### [place] [address] [place] HCG,Urineon 03-30-2021 Beta HCG ( test) Ql (U) Negative [facility] Comment on above: Result Comment: PERF ORMED BY: [place] [address] PATHOLOGIST FILTER BED PLACER JIANLAN SUN M.D. Performed By: #### U HCG #### [address] Corinne Ag Negativeon 03-30-19 Corinne Ag Negative Negative Normal Negative [facility] Comment on above: Result Comment: This is a duplicate Corinne SARS Antigen (KAEL) result to be used for statistical tracking purpose only. PERFORMED BY: [place] [address] PATHOLOGIST FILTER BED PLACER JONATHAN SHEPARD M.D. Performed By: #### S OFIANEG, COVID-19 CORINNE #### [address] COVID-19 FRMCon 03-28-2021 SARS-CoV-2 (COVID-19) RNA JESE+probe Ql (Unsp spec) Negative Normal Negative [facility] Comment on above: Order Comment: Healt hcare Worker?: N Result Comment: Testing for SARS-CoV-2 by RT-PCR This test was developed and its performance characteristics determined by [employer]) and validated at the [facility]. This test has not been FDA [...] is terminated or revoked sooner. PERFORMED BY: [place] [address] PATHOLOGIST FILTER BED PLACER JONATHAN SHEPARD M.D. Performed By: #### C OVID 19 [facility] #### [address] XR elbow LT 2Von 03-01-2021 XR elbow LT 2V [facility] [address] [place] [address] [place] [address] XRay Report Signed Patient: Moira Almaguer MR#: [id number] : 1985 Acct:[id number] Age/Sex: 35 / F ADM Date: 03/01/21 Loc: [facility] Room: Type: [facility] Attending Dr: Leandro Robles MD Ordering [...] Valdez Mcwilliams M.D.03/01/2021 1:47 PM Dictation Location: [place] [address] Transcribed By: [facility] 03/01/21 1347 Dictated By: Valdez Mcwilliams DO 03/01/21 1344 Signed By: 03/01/21 1347 [facility] XR FOREARM LEFT 2 VIEWSon [...] are recommended in 7 to 10 days. [facility] Workstation ID: [id number] Dictated by: MAR DAWSON on SunSep 08, 2020 11:41:42 PM EDT Transcribed by: SHERRILL SMYTH on SunSep 09, 2020 12:10:05 AM EDT Finalized by: MAR DAWSON on SunSep 09, 2020 12:16:26 AM EDT [facility] Comment on above: Order Comment: Injur [...] on SunSep 08, 2020 11:42:00 PM EDT [facility] Comment on above: Order Comment: Injur [...] kg/m2 Rogers James DO Work Phone: [facility] 02-20-2024 11:40-0500 Body weight 100.43 kg Rogers James DO Work Phone: [facility] 02-20-2024 11:40-0500 Diastolic blood pressure 70 mm[Hg] Rogers James DO Work Phone: [facility] 02-20-2024 11:40-0500 Systolic blood pressure 120 mm[Hg] Rogers James DO Work Phone: [facility] 02-07-2024 11:42-0500 Body mass index (BMI) [Ratio] 34.3 kg/m2 Iveth MCGRATH Work Phone: [facility] 02-07-2024 11:42-0500 Body weight 99.34 kg Iveth MCGRATH Work Phone: [facility] 02-07-2024 11:42-0500 Diastolic blood pressure 70 mm[Hg] Iveth Paresh PA Work Phone: [facility] 02-07-2024 11:42-0500 Systolic blood pressure 118 mm[Hg] Iveth Hood PA Work Phone: [facility] 01-10-2024 10:44-0400 Body mass index (BMI) [Ratio] 33.89 kg/m2 Rogers James DO Work Phone: [facility] 01-10-2024 10:44-0400 Body weight 98.16 kg Rogers James DO Work Phone: [facility] 01-10-2024 10:44-0400 Diastolic blood pressure 74 mm[Hg] Rogers James DO Work Phone: [facility] 01-10-2024 10:44-0400 Systolic blood pressure 120 mm[Hg] Rogers James DO Work Phone: [facility] 12-13-2023 10:51-0400 Body mass index (BMI) [Ratio] 33.33 kg/m2 Rogers James DO Work Phone: [facility] 12-13-2023 10:51-0400 Body weight 96.53 kg Rogers James DO Work Phone: [facility] 12-13-2023 10:51-0400 Diastolic blood pressure 80 mm[Hg] Rogers James DO Work Phone: [facility] 12-13-2023 10:51-0400 Systolic blood pressure 126 mm[Hg] Rogers James DO Work Phone: [facility] 11-15-2023 10:14-0400 Body mass index (BMI) [Ratio] 33.11 kg/m2 Rogers James DO Work Phone: [facility] 11-15-2023 10:14-0400 Body weight 95.89 kg Rogers James DO Work Phone: [facility] 11-15-2023 10:14-0400 Diastolic blood pressure 78 mm[Hg] Rogers James DO Work Phone: [facility] 11-15-2023 10:14-0400 Systolic blood pressure 118 mm[Hg] Rogers James DO Work Phone: [facility] 03-01-2021 11:00-0500 Body height 170.18 cm Leandro Robles Other [employer] Other 03-01-2021 11:00-0500 Body mass index (BMI) [Ratio] 30.07 kg/m2 Leandro Mckenziexa Other [employer] Other 03-01-2021 11:00-0500 Body weight 87.09 kg Leandro Mckenziexa Other [employer] Other Encounters Encounter Date Encounter Type Care [...] Result Encounter Rogers James DO Work Phone: [facility] External Department Unsolicited Start: 02-20-2024 End: [...] 02-07-2024 flow sheet Iveth MCGRATH Work Phone: [facility] Comment on above: 24 weeks gestation o f ; size consistent with dates during in second trimester Start: 02-04-2024 End: 02-04-2024 ambulatory [facility] Start: 01-30-2024 End: 01-30-2024 ambulatory [facility] Start: 01-23-2024 End: 01-23-2024 Telephone encounter [...] Start: 01-07-2024 End: 01-07-2024 ambulatory [facility] Start: 12-24-2023 End: 12-24-2023 ambulatory [facility] Start: 12-13-2023 End: 12-13-2023 Bamboo flowsheet Rogers [...] flow sheet Rogers James DO Work Phone: [facility] Comment on above: Second trimester pre gnancy; History of gestational diabetes; Diabetes mellitus screening; Screening, , for anatomic survey Start: 11-07-2023 End: 11-07-2023 Clinisync Result Encounter Iveth MCGRATH Work Phone: [facility] External Department Unsolicited Start: 11-07-2023 End: 11-07-2023 Clinisync Result Encounter Iveth MCGRATH Work Phone: [facility] External Department Unsolicited Start: 10-18-2023 End: 10-18-2023 [...] 03-01-2021 End: 03-01-2021 ambulatory Leandro Robles Other [employer] Other Start: 03-01-2021 Encounter for other preprocedural examination Leandro Robles [facility] Start: 03-01-2021 Office outpatient ne w 45 minutes Leandro Robles [facility] Start: 09-09-2020 End: 09-09-2020 [facility] Procedures Date Procedure Procedure Detail Performing [...] Screening for malign ant neoplasm of cervix [facility] Start: 10-05-2026 Screening for malign ant neoplasm of cervix [facility] Start: 03-24-2024 End: 03-24-2024 Patient encounter procedure 03/24/2024 11:20 AM EST Routine [facility] [address] [place] [address] Iveth Hood PA [address] [place] [address] [address] [place], [place] [id number] [facility] Start: 03-10-2024 End: 03-10-2025 US biophysical profile w non stress test US biophysical profile w non stress test Imaging Routine 32 weeks gestation of Third trimester History of gestational diabetes Expected: 03/10/2024 (Approximate), Expires: 03/10/2025 [facility] Work Phone: Comment on above: Expected: 03/10/2024 (Approximate), Expires: 03/10/2025 Start: 03-10-2024 End: 03-10-2024 Patient encounter procedure 03/10/2024 9:30 AM EST Routine [facility] [address] [place] [address] Rogers Ramirez DO [address] [place] [address] [place] [address] [facility] Start: 02-20-2024 End: 02-19-2025 CBC panel - Blood by Automated count CBC Lab Routine Diabetes mellitus screening Expected: 02/20/2024 (Approximate), Expires: 02/19/2025 [facility] Work Phone: Comment on above: Expected: 02/20/2024 (Approximate), Expires: 02/19/2025 Start: 02-20-2024 End: 02-20-2024 Patient encounter procedure 02/20/2024 11:00 AM EST Routine [facility] [address] [place] [phone] Rogers Ramirez DO [address] [facility] [address] [place] [place], [place] [id number] [facility] Start: 02-07-2024 End: 02-06-2025 US for US OB SCAN FOR GROWTH Imaging Routine size consistent with dates during in second trimester Expected: 02/07/2024 (Approximate), Expires: 02/06/2025 [facility] Work Phone: Comment on above: Expected: 02/07/2024 (Approximate), Expires: 02/06/2025 Start: 02-07-2024 End: 02-07-2024 Patient encounter procedure 02/07/2024 11:20 AM EST Routine [facility] [address] [place] [phone] Iveth Hood PA [address] [facility] [place] [address] [facility] Start: 01-10-2024 End: 01-10-2024 Patient encounter procedure [facility] Comment on above: Arrived Start: 12-17-2023 End: 12-17-2023 Professional / ancillary services management 12/17/2023 8:00 AM EDT Ancillary Procedure [facility] [address] [place] [phone] [facility] Start: 12-13-2023 End: 01-12-2024 Alpha fetoprotein, maternal Alpha fetoprotein, maternal Lab Routine 19 weeks gestation of Expected: 12/13/2023 (Approximate), Expires: 01/12/2024 [facility] Comment on above: Expected: 12/13/2023 (Approximate), Expires: 01/12/2024 Start: 12-13-2023 End: 12-13-2023 Patient encounter procedure 12/13/2023 10:10 AM EDT Routine [facility] [address] [facility] [facility] [facility] [place] [phone] Rogers Ramirez, DO [address] [place] [address] [facility] Start: 11-18-2023 Influenza vaccination Influenza Vacc ine (#1) [facility] Start: 11-15-2023 End: 11-14-2024 Measurement of glucose 1 hour after glucose challenge for glucose tolerance test Glucose tolerance, 1 hour Lab Routine Diabetes mellitus screening Expected: 11/15/2023 (Approximate), Expires: 11/14/2024 [facility] Work Phone: Comment on above: Expected: 11/15/2023 (Approximate), Expires: 11/14/2024 Start: 11-15-2023 End: 11-14-2024 US for US OB ANATOMY SINGLE W US OB CERVICAL LENGTH Imaging Routine Second trimester History of gestational diabetes Screening, , for anatomic survey Expected: 11/15/2023 (Approximate), Expires: 11/14/2024 [facility] Comment on above: Expected: 11/15/2023 (Approximate), Expires: 11/14/2024 Start: 11-15-2023 End: 11-15-2023 Patient encounter procedure 11/15/2023 9:50 AM EDT Routine [facility] [address] [facility] [facility] [facility] [place] [phone] Rogers Ramirez, DO [address] [place] [address] [facility] OB CHLAMYDIA TRACHOMATI S (GENITO/STI) CHLAMYDIA TRACHOMATIS (GENITO/STI) Lab Routine Exposure to STD Ordered: 12/13/2023 [facility] Comment on above: Ordered: 12/13/2023 Hemoglobin A1c/Hemoglobin.total in Blood Hemoglobin A1c Lab Routine Diabetes mellitus screening Ordered: 02/20/2024 [facility] Comment on above: Ordered: 02/20/2024 Neisseria gonorrhoea e DNA [Presence] in Unspecified specimen by JESE with probe detection Neisseria gonorrhea DNA probe, direct Lab Routine Exposure to STD Ordered: 12/13/2023 [facility] Comment on above: Ordered: 12/13/2023 SURESWAB(R) ADVANCED VAGINITIS PLUS, TMA SURESWAB(R) ADVANCED VAGINITIS PLUS, TMA Pathology and Cytology Routine Vaginal discharge Ordered: 12/13/2023 [facility] Work Phone: Comment on above: Ordered: 12/13/2023 Immunizations Immunization Date Immunization Notes Care Provider [facility] 12-26-2016 influenza virus vacc ine, unspecified formulation Iveth MCGRATH Work Phone: [facility] Payers Date Payer Category Payer Private Health Insurance [id number] 2021 Private Health Insurance FRON[employer]X TH [id number] 2021 Unknown FRONTPATH FRONTP ATH [id number] 2021-Present [phone] [address] [id number]. [id number] 2019 Unknown [id number] 1985 Unknown [id number] 05.04.840.1.160811.3.579.2. 902 1986 Unknown [id number] 2.16.840.1.458589.3.579.2. 593 1986 Unknown [id number] 2.16.840.1.840269.3.579.2. 593 1986 Unknown [id number] 2.16.840.1.319937.3.579.2. 593 1986 Unknown [id number] 2.16.840.1.310307.3.579.2. 59 1986 Unknown [id number] 2.16.840.1.077658.3.579.2. 593 1986 Unknown [id number] 2.840.1.164880.3.579.2. 59 1986 Unknown [id number] 2.16840.1.625305.3.579.2. 1285 1986 Unknown [id number] 840.1.844658.3.579.2. 1285 1986 Unknown [id number] 2.840.1.866214.3.579.2. 1285 1986 Unknown [id number] 2.840.1.427861.3.579.2. 1285 1986 Unknown [id number] 2.16840.1.874186.3.579.2. 1258 1986 Unknown [id number] .840.1.274203.3.579.2. 1258 1986 Unknown [id number] 2.840.1.693458.3.579.2. 1258 1986 Unknown [id number] 2.16840.1.115230.3.579.2. 1258 1986 Unknown [id number] 2.16.840.1.120229.3.579.2. 1258 1986 Unknown [id number] 2.16840.1.545934.3.579.2. 1258 1986 Unknown [id number] 2.16.840.1.237135.3.579.2. 1259 1986 Unknown [id number] 2.16.840.1.595437.3.579.2. 1259 1959 Self-pay 1959 Unknown [id number] 1959 Unknown [id number] 1959 Unknown [id number] Unknown [id number] 2.16.840.1.028189.3.579.2. 593 Social History Date Type Detail Facility Start: 10-15-2022 End: 02-05-2023 Sex Assigned At [facility] Start: 02-12-2023 Tobacco smoking status GAIS Ex-smoke r [facility] End: 08-19-2011 History [...] to any clubs or organizations such as adventist groups, unions, fraternal or athletic groups, or [...] Gender identity Identifies as female gender (finding) [facility] Clinical Notes 03-01-2021 to 03-10-2024 Mónica [...] Current Outpatient Medications Medication Instructions Continuous Glucose Financial Manager (PinoyTravelyle Adriana 2 [place]) device 1 Device, Does not apply, 4 times daily MV-Min-Fe Fum-FA-DHA ( 1 PO) Take by mouth. saccharomyces boulardii (FLORASTOR) 250 mg, 2 times daily ALLERGIES Allergies Allergen Reactions Sertraline Other Flat emotions Other Reaction(s): decreased emotional lability PROBLEMS Active Ambulatory Problems Diagnosis Date Noted Attention deficit hyperactivity disorder (ADHD) (CMS/[facility]) 09/15/2022 Cervicalgia 09/15/2022 Chronic fatigue 09/15/2022 Chronic tension-type headache, not intractable 09/15/2022 Generalized anxiety disorder (CMS/HCC) 09/15/2022 HPV (human papilloma virus) infection 09/15/2022 Large breasts 09/15/2022 LGSIL on Pap smear of cervix 09/15/2022 Migraine with aura and without status migrainosus, not intractable (CMS/HCC) 09/15/2022 Missed period 09/15/2022 Moderate recurrent major depression (CMS/[facility]) 09/15/2022 Other chronic pain 09/15/2022 Radicular pain 09/15/2022 Vitamin D deficiency 09/15/2022 History of miscarriage 06/22/2023 Positive urine test 06/22/2023 23 weeks gestation of 01/10/2024 32 weeks gestation of 03/10/2024 Third trimester 03/10/2024 Resolved Ambulatory Problems Diagnosis Date Noted No Resolved Ambulatory Problems Past Medical History: Diagnosis Date ADHD (attention deficit hyperactivity disorder) ([facility]/HCC) ADHD (attention deficit hyperactivity disorder) (CMS/HCC) Ankle [...] Ramirez DO documented in this encounter [facility] 02-20-2024 History of Presen t illness Narrative Reason for Appointment: Patient ID: Moira Starr is a 38 y.o. female who presents for Routine Visit Patient presents today for Return OB appointment. MEDICATIONS Current Outpatient Medications Medication Instructions Continuous Glucose Financial Manager (FreeStyle Adriana 2 [place]) device 1 Device, Does not apply, 4 times daily MV-Min-Fe Fum-FA-DHA ( 1 PO) Take by mouth. saccharomyces boulardii (FLORASTOR) 250 mg, 2 times daily ALLERGIES Allergies Allergen Reactions Sertraline Other Flat emotions Other Reaction(s): decreased emotional lability PROBLEMS Active Ambulatory Problems Diagnosis Date Noted Attention deficit hyperactivity disorder (ADHD) ([facility]) 09/15/2022 Cervicalgia 09/15/2022 Chronic fatigue 09/15/2022 Chronic tension-type headache, not intractable 09/15/2022 Generalized anxiety disorder ([facility]/HCC) 09/15/2022 HPV (human papilloma virus) infection 09/15/2022 Large breasts 09/15/2022 LGSIL on Pap smear of cervix 09/15/2022 Migraine with aura and without status migrainosus, not intractable ([facility]/HCC) 09/15/2022 Missed period 09/15/2022 Moderate recurrent major depression ([facility]) 09/15/2022 Other chronic pain 09/15/2022 Radicular pain 09/15/2022 Vitamin D deficiency 09/15/2022 History of miscarriage 06/22/2023 Positive urine test 06/22/2023 23 weeks gestation of 01/10/2024 Resolved Ambulatory Problems Diagnosis Date Noted No Resolved Ambulatory Problems Past Medical History: Diagnosis Date ADHD (attention deficit hyperactivity disorder) ([facility]) ADHD (attention deficit hyperactivity disorder) ([facility]) Ankle pain, left Anxiety with depression Epidermal inclusion cyst Fall with injury Gastro-esophageal reflux disease without esophagitis Headache History of cigarette smoking IBS (irritable bowel syndrome) Influenza Irritable bowel syndrome without diarrhea Mononucleosis syndrome Pain in thoracic spine Perennial allergic rhinitis Scoliosis Sinusitis URI (upper respiratory infection) HISTORY PAST MEDICAL HISTORY SOCIAL HISTORY Past Medical History: Diagnosis Date ADHD (attention deficit hyperactivity disorder) ([facility]) ADHD (attention deficit hyperactivity disorder) ([facility]) Ankle pain, left Anxiety with depression Anxiety/depression [...] Ramirez DO documented in this encounter [facility] 02-07-2024 History of Presen t illness Narrative Reason for Appointment: Patient ID: Moira Starr is a 38 y.o. female who presents for Routine Visit Patient presents today for Return OB appointment. MEDICATIONS Current Outpatient Medications Medication Instructions Continuous Glucose Financial Manager (KabbageStyle Adriana 2 [place]) device 1 Device, Does not apply, 4 [...] of: RAMILA Joshi documented in this encounter [facility] 01-23-2024 Telephone encounter Note Form atting of [...] we will have to put her with CARGO SERVICES COORDINATOR of her choice (since she would be a returning Angelina pt) to establish care. [facility] 11-06-2024 Miscellaneous Notes Formattin g of this [...] we will have to put her with CARGO SERVICES COORDINATOR of her choice (since she would be a returning Angelina pt) to establish care. documented in this encounter [facility] 01-10-2024 History of Presen t illness Narrative Reason for Appointment: Patient ID: Moira Starr is a 38 y.o. female who presents for Routine Visit Patient presents today for Return OB appointment. MEDICATIONS Current Outpatient Medications Medication Instructions Continuous Glucose Financial Manager (FreeStyle Adriana 2 [place]) device 1 Device, Does not apply, 4 [...] Date Noted Attention deficit hyperactivity disorder (ADHD) ([facility]) 09/15/2022 Cervicalgia 09/15/2022 Chronic fatigue 09/15/2022 Chronic tension-type headache, not intractable 09/15/2022 Generalized anxiety disorder ([facility]) 09/15/2022 HPV (human papilloma virus) infection 09/15/2022 Large breasts 09/15/2022 LGSIL on Pap smear of cervix 09/15/2022 Migraine with aura and without status migrainosus, not intractable ([facility]) 09/15/2022 Missed period 09/15/2022 Moderate recurrent major [...] nursing note reviewed. Exam conducted with a hybrid technologist present. Vitals: Estimated body mass index is [...] Ramirez DO documented in this encounter [facility] 12-13-2023 History of Presen t illness Narrative Reason for Appointment: Patient ID: Moira Starr is a 38 y.o. female who presents for Routine Visit and STI Screening Patient presents today for Return OB appointment. MEDICATIONS Current Outpatient Medications Medication Instructions Continuous Glucose Financial Manager (FreeStyle Adriana 2 [place]) device 1 Device, Does not apply, 4 times daily ergocalciferol (VITAMIN D2) 1.25 mg, Oral, Weekly MV-Min-Fe Fum-FA-DHA ( 1 PO) Oral saccharomyces boulardii (FLORASTOR) 250 mg, Oral, 2 times daily ALLERGIES Allergies Allergen Reactions Sertraline Other Flat emotions Other Reaction(s): decreased emotional lability PROBLEMS Active Ambulatory Problems Diagnosis Date Noted Attention deficit hyperactivity disorder (ADHD) ([facility]) 09/15/2022 Cervicalgia 09/15/2022 Chronic fatigue 09/15/2022 Chronic tension-type headache, not intractable 09/15/2022 Generalized anxiety disorder ([facility]) 09/15/2022 HPV (human papilloma virus) infection 09/15/2022 Large breasts 09/15/2022 LGSIL on Pap smear of cervix 09/15/2022 Migraine with aura and without status migrainosus, not intractable ([facility]) 09/15/2022 Missed period 09/15/2022 Moderate recurrent major depression (HCC) ([facility]) 09/15/2022 Other chronic pain 09/15/2022 Radicular pain 09/15/2022 Vitamin D deficiency 09/15/2022 History of miscarriage 06/22/2023 Positive urine test 06/22/2023 Resolved Ambulatory Problems Diagnosis Date Noted No Resolved Ambulatory Problems Past Medical History: Diagnosis Date ADHD (attention deficit hyperactivity disorder) ([facility]) ADHD (attention deficit hyperactivity disorder) ([facility] [facility]) Ankle pain, left Anxiety with depression Epidermal inclusion cyst Fall with injury Gastro-esophageal reflux disease without esophagitis Headache History of cigarette smoking IBS (irritable bowel syndrome) Influenza Irritable bowel syndrome without diarrhea Mononucleosis syndrome Pain in thoracic spine Perennial allergic rhinitis Scoliosis Sinusitis URI (upper respiratory infection) HISTORY PAST MEDICAL HISTORY SOCIAL HISTORY Past Medical History: Diagnosis Date ADHD (attention deficit hyperactivity disorder) ([facility]) ADHD (attention deficit hyperactivity disorder) ([facility]) Ankle pain, left Anxiety with depression Anxiety/depression [...] nursing note reviewed. Exam conducted with a hybrid technologist present. Vitals: Estimated body mass index is [...] annual unless needed otherwise. Documented by Belen Oconenll LPN on behalf of: Rogers Ramirez DO documented in this encounter [facility] 11-15-2023 History of Presen t illness Narrative [...] Date Noted Attention deficit hyperactivity disorder (ADHD) ([facility]) 09/15/2022 Cervicalgia 09/15/2022 Chronic fatigue 09/15/2022 Chronic [...] or undercooked meat, and [facility]. Patient has been consulted regarding any further [...] Iveth Hood PA-C documented in this encounter [facility] 03-01-2021 Evaluation note Encounter Date Diagnosis Assessment Notes Feb, Closed fracture of capitellum of left humerus with routine healing (ICD-10 - S42.452D) MRI reviewed with patient as healing fractures within the elbow. Discussed that her lacking range of motion may be a medical terminologist condition, with or without surgical intervention. Instructed [...] M24.022) Feb, Pre-op exam (ICD-10 - Z01.818) [employer] Other Evaluation note* Diagnosis Second trimester state, [...] - Reported* Type Description Date Medical History [facility] [employer] Other Summary Purpose Family History No Family History Records FoundNo Family History Records FoundNo Family History Records FoundNo Family History Records FoundNo Family History Records Found Advance Directives No Advanced Directives Records FoundNo Advanced Directives Records FoundNo Advanced Directives Records FoundNo Advanced Directives Records FoundNo Advanced Directives Records Found Additional Source Comments INFORMATION SOURCE (unrecogn ized section and content) DATE CREATED AUTHOR [facility]14/2020 [facility] DATE CREATED AUTHOR AUTHOR'S ORGANIZ ATION 10/06/[address] [facility] DATE CREATED AUTHOR AUTHOR'S ORGANIZ ATION 06/08/2022 [facility] DATE CREATED AUTHOR AUTHOR'S ORGANIZ ATION 02/06/2024 [facility] DATE CREATED AUTHOR AUTHOR'S ORGANIZ ATION 03/12/2024 [facility] EPIC REASON FOR VISIT (unrecogniz ed section and content) Reason Comments Routine Visit Reason Comments Routine Visit STI Screening Care Teams (unrecognized sec tion and content) Hose Turner Relationship Specialty Start Date End Date Emily Alfrao DO [address] [place] [address] PCP - General Family Medicine 09/14/22 Hose [employer] Relationship Specialty Start Date End Date Angelina Emily G, [address] [place] [address] PCP - General Family Medicine 09/14/22 Hose Turner Relationship Specialty Start Date End Date Angelina Emily G, [address] [place] [address] PCP - General Family Medicine 09/14/22 Hose Turner Relationship Specialty Start Date End Date AngelinaDarrickninoska PimentelDO [address] [place] [address] PCP - General Family Medicine 09/14/22 Hose Turner Relationship Specialty Start Date End Date AngelinaEmily LorenDO [address] [place] [address] PCP - General Family Medicine 09/14/22 Hose Turner Relationship Specialty Start Date End Date AngelinaDarricknionska PimentelDO [address] [place] [address] PCP - General Family Medicine 09/14/22 Hose Turner Relationship Specialty Start Date End Date AngelinaEmily LorenDO [address] [place] [address] PCP - General Family Medicine 09/14/22 Hose Turner Relationship Specialty Start Date End Date AngelinaDarrickninoska PimentelDO [address] [place] [address] PCP - General Family Medicine 09/14/22 Hose Turner Relationship Specialty Start Date End Date Emily Alfaro LorenDO [address] [place] [address] PCP - General Family Medicine 09/14/22 Hose Turner Relationship Specialty Start Date End Date Emily Alfaro DO [address] [place], [place] [id number] PCP - General Family Medicine 09/14/22 FOR [...] BE BASED ON THE PRIMARY CLINICAL RECORDS. [facility] [employer] [facility]. provides no warranty or guarantee of the accuracy or completeness of information in this document.
--- NOTE | 2024-03-27 08:19 | US_ITS ---
[address] [address] Patient Name: DANYELL ROSENBERG MRN: [id number] date: 1985 Sex: F Assigned Patient Location: [facility] Current Patient Location: [facility] Accession/Order Number: [id number] Exam Date: 03/27/2024 08:20 Report Date: 03/27/2024 09:06 At the request of: ROGERS HODGE Procedure: US OB BPP w non-stress EXAMINATION: US OB BPP w non-stress HISTORY: History of gestational diabetes COMPARISON: No relevant comparison available. TECHNIQUE: Ultrasound biophysical profile was performed in the radiology department. non-reactive stress testing was performed by nursing staff in the birthing center. FINDINGS: BREATHING MOVEMENTS: 2 GROSS BODY MOVEMENTS: 2 TONE: 2 QUALITATIVE AMNIOTIC FLUID VOLUME: 2 PRESENTATION: CEPHALIC HEART RATE: 148.35 bpm AMNIOTIC FLUID VOLUME: 17.2 cm GESTATIONAL AGE: 34w5d US/US OB BPP w non-stress IMPRESSION: Total biophysical profile score: 8 Electronically authenticated by: CARIDAD DOBSON Date: 03/27/2024 09:06
[2024-03-27 08:41] VITALS: BP 114/69; PULSE 90
== END 2024-03-27 09:08 | disposition home or self-care (01) ==
LOC: FBCO 01:11 → FBC 08:16
PROVIDERS: PCP Family Medicine; Visit Provider Obstetrics & Gynecology
DX: O09.523 Supervision of elderly multigravida, third trimester (principal); Z3A.34 34 weeks gestation of pregnancy
CPT/HCPCS: 76818

== ENCOUNTER 2024-04-03 01:00 | Outpatient (OUT) | payer OTHER, SELFPAY ==
--- OUTSIDE RECORDS SUMMARY | 2024-04-03 01:03 | XMS_ITS | CCD ---
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 Name Role Phone HUBER LUNDBERG Attending Unavailable [...] Unavailable JAMES ., DR MCCLOUD Admitting Unavailable [place], DR CARIDAD Martin Consulting Unavailable JAMES ., [...] Angelina DO, Emily G Primary Care Provider SRIDEVI FREITAS Attending Unavailable ANGELINA, EMILY G [...] ROGERS Attending Unavailable IVETH HOOD Attending Unavailable Allergies Allergy Classification Reported Allergen(s) [...] Orally Twice a day Active Continuous Glucose Tool Straightener (FreeStyle Adriana 2 [place]) device (20 sources) Start: 11-15-2023 Continuous Glucose Tool Straightener (FreeStyle Adriana 2 [place]) device Indications: History of gestational diabetes 1 Device in the morning and 1 Device at noon and 1 Device in the evening and 1 Device before bedtime. 1 each 11/15/2023 Active ergocalciferol 1.25 mg oral capsule (15 sources) Provitamin D2 Compound Start: 02-14-2023 End: 02-14-2024 take 1 capsule by mouth every week ergocalciferol (Vitamin D2) 1.25 MG (85997 UT) capsule Indications: Vitamin D deficiency Take [...] polysaccharide iron complex 391 mg oral capsule (5 sources) Start: 03-10-2024 End: 04-09-2024 take 1 [...] Sig (Normalized) Sig (Original) Continuous Glucose Sensor (FreeStyle Adrinaa 2 Plus Sensor) misc (5 sources) Start: 03-10-2024 End: 03-24-2024 Continuous Glucose Sensor (FreeStyle Adriana 2 Plus Sensor) misc Indications: History of gestational diabetes 1 Units every 14 (fourteen) days 2 each 3 03/10/2024 03/24/2024 Discontinued (Reorder) Start: 03-10-2024 End: 04-09-2024 Continuous Glucose Sensor (F reeStyle Adriana 2 Plus Sensor) misc Indications: History of gestational diabetes 1 Units every 14 (fourteen) days 2 each 3 03/10/2024 04/09/2024 Active Continuous Glucose Sensor mi sc (6 sources) Start: 12-13-2023 End: 01-12-2024 Continuous Glucose Sensor mi sc Indications: Elevated glucose 1 Device every 14 (fourteen) days 2 Device 8 12/13/2023 01/12/2024 Start: 12-13-2023 End: 01-12-2024 Continuous Glucose Sensor mi sc Indications: Elevated glucose 1 Device every 14 [...] cervix] Onset: 10-05-2021 Episodic Residual codes; unclassified (18 sources) Gestation period, 23 weeks; Translations: [23 [...] of ] 12-13-2023 Episodic Residual codes; unclassified (8 sources) Gestation period, 32 weeks; Translations: [32 weeks gestation of ] Onset: 03-10-2024 03-10-2024 Episodic Residual codes; unclassified (4 sources) Gestation period, 34 weeks; Translations: [34 weeks gestation of ] Onset: 03-25-2024 03-25-2024 Episodic Unclassified (2 sources) LOW BACK PAIN, [...] Range Facility Urinalysis macro (dipstick) panel (U)on 03-25-2024 Bilirubin, UA Negative Negative - 4(70) +++ mg/dL [facility] Blood, UA Negative Negative - 50 Andrew/mcL [facility] Clarity, UA Clear [facility] Color, UA Yellow [facility] Glucose, UA Negative Negative - 1999(110) ++++ mg/dL [facility] Interpretation and review of laboratory results Abnormal [facility] Ketones, UA Positive Negative - 160(16) ++++ mg/dL [facility] Comment on above: trace Leukocytes, UA Trace Negative - 500+++ Lore/mcL [facility] Nitrite, UA Negative Negative - Positive [facility] pH, UA 6.5 5 - 9 [facility] Protein, UA Positive Negative - 1999(20) ++++ mg/dL [facility] Comment on above: 30mg Spec Grav, UA 1.025 1 - 1.03 [facility] Urobilinogen, UA 1.0 0.2 - 12 mg/dL [facility] Urinalysis macro (dipstick) panel (U)on 03-10-2024 Bilirubin, UA Positive Negative - 4(70) +++ mg/dL [facility] Comment on above: small Blood, UA Negative Negative - 50 Andrew/mcL [facility] Clarity, UA Clear [facility] Color, UA Yellow [facility] Glucose, UA Negative Negative - 2000(110) ++++ mg/dL [facility] Interpretation and review of laboratory results Abnormal [facility] Ketones, UA Positive Negative - 160(16) ++++ mg/dL [facility] Comment on above: trace Leukocytes, UA Negative Negative - 500+++ Lore/mcL [facility] Nitrite, UA Negative Negative - Positive [facility] pH, UA 6 5 - 9 [facility] Protein, UA Positive Negative - 2000(20) ++++ mg/dL [facility] Comment on above: 30 Spec Grav, UA 1.025 1 - 1.03 [facility] Urobilinogen, UA 1.0 0.2 - 12 mg/dL [facility] HEMOGLOBIN A1Con 024 Glucose [Mass/Vol] 114 mg/dL [facility] HbA1c (Bld) [Mass fraction] 5.6 % 4.5 - 6.2 % [facility] Comment on above: ADA RECOMMENDED LIMI T 4.0 - 6.0 ADA THERAPEUTIC TARGET < 7.0 ACTION SUGGESTED > 7.0 [facility] Urinalysis macro (dipstick) panel (U)on 02-20-2024 Bilirubin, UA Positive Negative - 4(70) +++ mg/dL [facility] Comment on above: small Blood, UA Negative Negative - 50 Andrew/mcL [facility] Clarity, UA Clear [facility] Color, UA Yellow [facility] Glucose, UA Negative Negative - 1999(110) ++++ mg/dL [facility] Interpretation and review of laboratory results Abnormal [facility] Ketones, UA Positive Negative - 160(16) ++++ mg/dL [facility] Comment on above: trace Leukocytes, UA Negative Negative - 500+++ Lore/mcL [facility] Nitrite, UA Negative Negative - Positive [facility] pH, UA 6 5 - 9 [facility] Protein, UA Trace Negative - 1999(20) ++++ mg/dL [facility] Spec Grav, UA 1.03 1 - 1.03 [facility] Urobilinogen, UA 1.0 0.2 - 12 mg/dL [facility] Urinalysis macro (dipstick) panel (U)on 01-10-2024 Bilirubin, UA Negative Negative - 4(70) +++ mg/dL [facility] Blood, UA Negative Negative - 50 Andrew/mcL [facility] Clarity, UA Clear [facility] Color, UA Yellow [facility] Glucose, UA Negative Negative - 1999(110) ++++ mg/dL [facility] Interpretation and review of laboratory results Normal [facility] Ketones, UA Negative Negative - 160(16) ++++ mg/dL [facility] Leukocytes, UA Negative Negative - 500+++ Lore/mcL [facility] Nitrite, UA Negative Negative - Positive [facility] pH, UA 5.5 5 - 9 [facility] Protein, UA Negative Negative - 1999(20) ++++ mg/dL [facility] Spec Grav, UA 1.02 1 - 1.03 [facility] Urobilinogen, UA 1.0 0.2 - 12 mg/dL [facility] URETHRITIS/DISCHARGE PLUS VA GINITIS (HTRX)on 12-14-2023 ATOPOBIUM VAGINAE 0.000 [facility] ATOPOBIUM VAGINAE Not detected [facility] BVAB 2,3 (BACTERIAL VAGINOSIS ASSOCIATED BACTERIA 2, 3); MOBILUNCUS SPP 26.743 Abnormal [facility] BVAB 2,3 (BACTERIAL VAGINOSIS ASSOCIATED BACTERIA 2, 3); MOBILUNCUS SPP Detected Abnormal [facility] TATYANA ALBICANS, PARAPSILOSIS, TROPICALIS 0.000 [facility] TATYANA ALBICANS, PARAPSILOSIS, TROPICALIS Not detected [facility] TATYANA GLABRATA 0.000 [facility] TATYANA GLABRATA Not detected [facility] TATYANA KRUSEI 0.000 [facility] TATYANA KRUSEI Not detected [facility] CHLAMYDIA TRACHOMATIS 0.000 [facility] CHLAMYDIA TRACHOMATIS Not detected [facility] GARDNERELLA VAGINALIS 0.000 [facility] GARDNERELLA VAGINALIS Not detected [facility] Interpretation and review of laboratory results Abnormal [facility] MEGASPHAERA (TYPES 1, 2) 0.000 [facility] MEGASPHAERA (TYPES 1, 2) Not detected [facility] MYCOPLASMA GENITALIUM 0.000 [facility] MYCOPLASMA GENITALIUM Not detected [facility] NEISSERIA GONORRHOEAE 0.000 [facility] NEISSERIA GONORRHOEAE Not detected [facility] TRICHOMONAS VAGINALIS 0.000 [facility] TRICHOMONAS VAGINALIS Not detected [facility] Urinalysis macro (dipstick) panel (U)on 12-13-2023 Bilirubin, UA Negative Negative - 4(70) +++ mg/dL [facility] Blood, UA Negative Negative - 50 Andrew/mcL [facility] Clarity, UA Clear [facility] Color, UA Yellow [facility] Glucose, UA Negative Negative - 1999(110) ++++ mg/dL [facility] Interpretation and review of laboratory results Abnormal [facility] Ketones, UA Positive Negative - 160(16) ++++ mg/dL [facility] Comment on above: trace Leukocytes, UA Negative Negative - 500+++ Lore/mcL [facility] Nitrite, UA Negative Negative - Positive [facility] pH, UA 6.5 5 - 9 [facility] Protein, UA Negative Negative - 1999(20) ++++ mg/dL [facility] Spec Grav, UA 1.025 1 - 1.03 [facility] Urobilinogen, UA 1.0 0.2 - 12 mg/dL [facility] Urinalysis macro (dipstick) panel (U)on 11-15-2023 Bilirubin, UA Negative Negative - 4(70) +++ mg/dL [facility] Blood, UA Negative Negative - 50 Andrew/mcL [facility] Clarity, UA Clear [facility] Color, UA Yellow [facility] Glucose, UA Negative Negative - 1999(110) ++++ mg/dL [facility] Interpretation and review of laboratory results Normal [facility] Ketones, UA Negative Negative - 160(16) ++++ mg/dL [facility] Leukocytes, UA Negative Negative - 500+++ Lore/mcL [facility] Nitrite, UA Negative Negative - Positive [facility] pH, UA 5.5 5 - 9 [facility] Protein, UA Negative Negative - 1999(20) ++++ mg/dL [facility] Spec Grav, UA 1.020 1 - 1.03 [facility] Urobilinogen, UA 1.0 0.2 - 12 mg/dL [facility] ALL CBC WITH AUTO DIFFon BASOPHILS ABSOLUTE AUTO 0.0 [facility] Basophils/100 WBC (Bld) 0.4 % 0.2 - 2.0 % [facility] Eosinophils/100 WBC (Bld) 3.0 % 0.9 - 7.0 % [facility] Erythrocyte distribution width (RBC) [Ratio] 16.1 % High 11.0 - 15.0 % [facility] Hematocrit (Bld) [Volume fraction] 36.3 % 36.0 - 48.0 % [facility] Hemoglobin (Bld) [Mass/Vol] 11.4 g/dL Low 12.0 - 16.0 g/dL [facility] IMMATURE GRANULOCYTES ABS AUTO 0.03 [facility] Immature granulocytes/100 WBC (Bld) 0.3 % 0.0 - 0.5 % [facility] Interpretation and review of laboratory results Abnormal [facility] LYMPHOCYTES ABSOLUTE AUTO 2.2 [facility] Lymphocytes/100 WBC (Bld) 23.6 % 20.5 - 60.0 % [facility] MCH (RBC) [Entitic mass] 26.0 pg Low 26.7 - 34.0 pg [facility] MCHC (RBC) [Mass/Vol] 31.4 g/dL 29.9 - 35.2 g/dL [facility] MCV (RBC) [Entitic vol] 82.9 fL 81.0 - 99.0 fL [facility] MONOCYTES ABSOLUTE AUTO 0.5 [facility] Monocytes/100 WBC (Bld) 5.1 % 1.7 - 12.0 % [facility] NEUTROPHILS ABSOLUTE AUTO 6.2 [facility] Neutrophils/100 WBC (Bld) 67.6 % 43.0 - 75.0 % [facility] Platelet mean volume (Bld) [Entitic vol] 11.0 fL 9.5 - 13.5 fL [facility] TBH EO # 0.3 [facility]H PLT 271 [facility] RBC 4.38 [facility] WBC 9.2 [facility] Cytology Cervical or vaginal smear or scraping studyon 03-08-2023 [facility] CHLAMYDIA/GONOCOCCUS JESE ( AB/URINE/PAPon 06-01-2022 Chlamydia trachomatis, JESE Negative Normal Negative [facility] Comment on above: Performed By: #### P TT, PT #### Laboratory [address] [place] [address] Dr. Todd Moreno Neisseria gonorrhoeae, JESE Negative Normal Negative The Comment on above: Performed By: #### P TT, PT #### Laboratory [address] [address] [address] Todd Moreno VAGINITIS/VAGINOSIS DNA PROB Shaheed 06-01-2022 Tatyana species Negative Normal Negative [facility] Comment on above: Performed By: #### P TT, PT #### Laboratory [address] [address] [address] Todd Moreno Gardnerella vaginalis Negative Normal Negative The Comment on above: Performed By: #### P TT, PT #### Laboratory [address] [address] [address] Todd Moreno Trichomonas vaginalis Negative Normal Negative [facility] Comment on above: Performed By: #### P TT, PT #### Laboratory [address] [place] [address] Dr. Todd Moreno HEP B SURFACE ANTIGEN SCREEN on 03-22-2022 HBsAg Screen Negative Normal Negative The Comment on above: Performed By: #### H BSANS #### Laboratory [address] [place] [address] Dr. Todd Moreno HEPATITIS C VIRUS AB W/ REFL EX QUANTon 03-22-2022 HCV AB 0.1 s/co ratio Normal 0.0-0.9 [facility] Comment on above: Performed By: #### P TT, PT #### Laboratory [address] [place] [address] Dr. Todd Moreno Interpretation: Comment Normal [facility] Comment on above: Result Comment: Nega tive Not infected with HCV, unless recent infection is suspected or other evidence exists to indicate HCV infection. Performed By: #### P TT, PT #### Laboratory [address] [place] [address] Dr. Todd Moreno HIV 1 AND 2 WITH REFLEXon HIV Screen 4th Generation wRfx Non-Reactive Normal Non Reactive The Comment on above: Result Comment: HIV Negative HIV-1/HIV-2 antibodies and HIV-1 p24 antigen were NOT detected. There is no laboratory evidence of HIV infection. Performed By: #### H IV12 #### Laboratory [address] [place] [address] Dr. Todd Moreno RPR QUANTon 03-22-2022 Rapid Plasma Reagin, Quant Non-Reactive Normal NonRea<1:1 The Comment on above: Result Comment: Plea se Note: This test does not meet current guidelines for screening and diagnosis of syphilis. This test is intended for following treatment response in patients being treated for syphilis infection. To screen for syphilis infection, a reflex cascade that includes both RPR and a treponema-specific assay should be utilized, such as Treponema pallidum (Syphilis) Screening [place] (138241) or Rapid Plasma Reagin (RPR) Test With Reflex to Quantitative RPR and Confirmatory Treponema pallidum Antibodies (843800). Performed By: #### R PRQ #### Laboratory [address] [place] [address] Dr. Todd Moreno RUBELLA AB IGGon 03-22-2022 Rubella Antibodies, IgG 5.11 index Normal Immune >0.99 [facility] Comment on above: Result Comment: Non- immune <0.90 Equivocal 0.90 - 0.99 Immune >0.99 Performed By: #### R PRQ #### Laboratory [address] [place] [address] Dr. Todd Moreno CBC AUTO DIFFon 03-20-2022 BASO # 0.0 103/ul Normal 0.0-0.1 [facility] Comment on above: Performed By: #### P TT, PT #### Laboratory [address] [place] [address] Dr. Todd Moreno Basophils/100 WBC (Bld) 0.3 % Normal 0.2-2.0 [facility] Comment on above: Performed By: #### P TT, PT #### Laboratory [address] [place] [address] Dr. Todd Moreno EO # 0.1 103/ul Normal 0.0-0.7 [facility] Comment on above: Performed By: #### P TT, PT #### Laboratory [address] [place] [address] Dr. Todd Moreno Eosinophils/100 WBC (Bld) 1.0 % Normal 0.9-7.0 [facility] Comment on above: Performed By: #### P TT, PT #### Laboratory [address] [place] [address] Dr. Todd Moreno Erythrocyte distribution width (RBC) [Ratio] 14.4 % Normal 11.0-15.0 [facility] Comment on above: Performed By: #### P TT, PT #### Laboratory [address] [place] [address] Dr. Todd Moreno Hematocrit (Bld) [Volume fraction] 38.2 % Normal 36.0-48.0 [facility] Comment on above: Performed By: #### P TT, PT #### Laboratory [address] [place] [address] Dr. Todd Moreno Hemoglobin (Bld) [Mass/Vol] 12.2 g/dL Normal 12.0-16.0 The Comment on above: Performed By: #### P TT, PT #### Laboratory [address] [place] [address] Dr. Todd Moreno IG # 0.03 10e3/ul Normal 0.00-0.03 [facility] Comment on above: Performed By: #### P TT, PT #### Laboratory [address] [place] [address] Dr. Todd Moreno IG % 0.3 % Normal 0.0-0.5 The Comment on above: Performed By: #### P TT, PT #### Laboratory [address] [place] [address] Dr. Todd Moreno LYMPH # 1.9 103/ul Normal 1.2-3.8 The Comment on above: Performed By: #### P TT, PT #### Laboratory [address] [place] [address] Dr. Todd Moreno Lymphocytes/100 WBC (Bld) 19.0 % Critically low 20.5-60.0 The Comment on above: Performed By: #### P TT, PT #### Laboratory [address] [place] [address] Dr. Todd Moreno MANUAL DIFF REQ NO Normal [facility] Comment on above: Performed By: #### P TT, PT #### Laboratory [address] [place] [address] Dr. Todd Moreno MCH (RBC) [Entitic mass] 26.1 pg Critically low 26.7-34.0 The Comment on above: Performed By: #### P TT, PT #### Laboratory [address] [place] [address] Dr. Todd Moreno MCHC (RBC) [Mass/Vol] 31.9 g/dL Normal 29.9-35.2 The Comment on above: Performed By: #### P TT, PT #### Laboratory [address] [place] [address] Dr. Todd Moreno MCV (RBC) [Entitic vol] 81.6 fL Normal 81.0-99.0 The Comment on above: Performed By: #### P TT, PT #### Laboratory [address] [place] [address] Dr. Todd Moreno MONO # 0.4 103/ul Normal 0.3-0.8 The Comment on above: Performed By: #### P TT, PT #### Laboratory [address] [place] [address] Dr. Todd Moreno Monocytes/100 WBC (Bld) 4.4 % Normal 1.7-12.0 The Comment on above: Performed By: #### P TT, PT #### Laboratory [address] [place] [address] Dr. Todd Moreno NEUT # 7.5 103/ul Critically high 1.4-6.5 [facility] Comment on above: Performed By: #### P TT, PT #### Laboratory [address] [place] [address] Dr. Todd Moreno Neutrophils/100 WBC (Bld) 75.0 % Normal 43.0-75.0 The Comment on above: Performed By: #### P TT, PT #### Laboratory [address] [place] [address] Dr. Todd Moreno Platelet mean volume (Bld) [Entitic vol] 10.4 fL Normal 9.5-13.5 The Comment on above: Performed By: #### P TT, PT #### Laboratory [address] [place] [address] Dr. Todd Moreno PLT 302 103/ul Normal 150-450 The Comment on above: Performed By: #### P TT, PT #### Laboratory [address] [place] [address] Dr. Todd Moreno RBC 4.68 106/ul Normal 4.20-5.40 The Comment on above: Performed By: #### P TT, PT #### Laboratory [address] [place] [address] Dr. Todd Moreno WBC 10.1 103/ul Normal 4.0-11.0 [facility] Comment on above: Performed By: #### P TT, PT #### Laboratory [address] [place] [address] Dr. Todd Moreno CULTURE URINEon 03-20-2022 CULTURE URINE Culture Observations : MODERATE GROWTH OF MIXED GENITAL LORA. NO POTENTIAL PATHOGENS SEEN. Normal The Comment on above: Performed By: #### P TT, PT #### Laboratory [address] [place] [address] Dr. Todd Moreno GLYCOHEMOGLOBIN A1Con 2022 ADA RECOMMENDATION SEE BELOW Normal [facility] Comment on above: Result Comment: ADA RECOMMENDED LIMIT 4.0 - 6.0 ADA THERAPEUTIC TARGET < 7.0 ACTION SUGGESTED > 7.0 Performed By: #### A 1C #### Laboratory [address] [place] [address] Dr. Todd Moreno Glucose [Mass/Vol] 105 mg/dL Normal [facility] Comment on above: Performed By: #### A 1C #### Laboratory [address] [place] [address] Dr. Todd Moreno HbA1c (Bld) [Mass fraction] 5.3 % Normal 4.5-6.2 [facility] Comment on above: Performed By: #### A 1C #### Laboratory [address] [place] [address] Dr. Todd Moreno BENJAMIN BOX TEST PT SEND OUTo n 03-20-2022 SENT TO REF LAB 03/20/2022 Normal [facility] Comment on above: Performed By: #### P TT, PT #### Laboratory [address] [place] [address] Dr. Todd Moreno TYPE AND SCREENon 03-20-2022 TYPE AND SCREEN Negative Normal [facility] Comment on above: Performed By: #### P TT, PT #### Laboratory [address] [place] [address] Dr. Todd Moreno US PREG TVon 12-09-2022 US PREG TV EXAMINATION: US PREG TV [...] CARIDAD DOBSON Date: 2022-02-24 16:16 Normal The CULTURE URINEon 02-03-2022 CULTURE URINE Isolate 1 [...] F Oxacillin 0.5 S F Normal The Comment on above: Performed By: #### P TT, PT #### Laboratory [address] [place] [address] Dr. Todd Moreno US PREG TVon 02-01-2022 [...] ETHAN MERCER Date: 2022-01-31 22:05 Normal The CBC AUTO DIFFon 01-31-2022 BASO # 0.1 103/ul Normal 0.0-0.1 [facility] Comment on above: Performed By: #### P TT, PT #### Laboratory [address] [address] [address] Todd Moreno Basophils/100 WBC (Bld) 0.8 % Normal 0.2-2.0 The Comment on above: Performed By: #### P TT, PT #### Laboratory [address] [address] [address] Todd Moreno EO # 0.5 103/ul Normal 0.0-0.7 The Comment on above: Performed By: #### P TT, PT #### Laboratory [address] [address] [address] Todd Moreno Eosinophils/100 WBC (Bld) 5.4 % Normal 0.9-7.0 [facility] Comment on above: Performed By: #### P TT, PT #### Laboratory [address] [address] [address] Todd Moreno Erythrocyte distribution width (RBC) [Ratio] 15.0 % Normal 11.0-15.0 [facility] Comment on above: Performed By: #### P TT, PT #### Laboratory [address] [place] [address] Dr. Todd Moreno Hematocrit (Bld) [Volume fraction] 34.3 % Critically low 36.0-48.0 [facility] Comment on above: Performed By: #### P TT, PT #### Laboratory [address] [place] [address] Dr. Todd Moreno Hemoglobin (Bld) [Mass/Vol] 11.2 g/dL Critically low 12.0-16.0 [facility] Comment on above: Performed By: #### P TT, PT #### Laboratory [address] [place] [address] Dr. Todd Moreno IG # 0.02 10e3/ul Normal 0.00-0.03 [facility] Comment on above: Performed By: #### P TT, PT #### Laboratory [address] [place] [address] Dr. Todd Moreno IG % 0.2 % Normal 0.0-0.5 [facility] Comment on above: Performed By: #### P TT, PT #### Laboratory [address] [place] [address] Dr. Todd Moreno LYMPH # 2.7 103/ul Normal 1.2-3.8 The Comment on above: Performed By: #### P TT, PT #### Laboratory [address] [place] [address] Dr. Todd Moreno Lymphocytes/100 WBC (Bld) 29.9 % Normal 20.5-60.0 [facility] Comment on above: Performed By: #### P TT, PT #### Laboratory [address] [place] [address] Dr. Todd Moreno MANUAL DIFF REQ NO Normal [facility] Comment on above: Performed By: #### P TT, PT #### Laboratory [address] [place] [address] Dr. Todd Moreno MCH (RBC) [Entitic mass] 26.7 pg Normal 26.7-34.0 [facility] Comment on above: Performed By: #### P TT, PT #### Laboratory [address] [place] [address] Dr. Todd Moreno MCHC (RBC) [Mass/Vol] 32.7 g/dL Normal 29.9-35.2 [facility] Comment on above: Performed By: #### P TT, PT #### Laboratory [address] [place] [address] Dr. Todd Moreno MCV (RBC) [Entitic vol] 81.7 fL Normal 81.0-99.0 [facility] Comment on above: Performed By: #### P TT, PT #### Laboratory [address] [place] [address] Dr. Todd Moreno MONO # 0.5 103/ul Normal 0.3-0.8 The Comment on above: Performed By: #### P TT, PT #### Laboratory [address] [place] [address] Dr. Todd Moreno Monocytes/100 WBC (Bld) 5.7 % Normal 1.7-12.0 The Comment on above: Performed By: #### P TT, PT #### Laboratory [address] [place] [address] Dr. Todd Moreno NEUT # 5.2 103/ul Normal 1.4-6.5 [facility] Comment on above: Performed By: #### P TT, PT #### Laboratory [address] [place] [address] Dr. Todd Moreno Neutrophils/100 WBC (Bld) 58.0 % Normal 43.0-75.0 The Comment on above: Performed By: #### P TT, PT #### Laboratory [address] [place] [address] Dr. Todd Moreno Platelet mean volume (Bld) [Entitic vol] 10.4 fL Normal 9.5-13.5 [facility] Comment on above: Performed By: #### P TT, PT #### Laboratory [address] [place] [address] Dr. Todd Moreno PLT 270 103/ul Normal 150-450 [facility] Comment on above: Performed By: #### P TT, PT #### Laboratory [address] [place] [address] Dr. Todd Moreno RBC 4.20 106/ul Normal 4.20-5.40 [facility] Comment on above: Performed By: #### P TT, PT #### Laboratory [address] [place] [address] Dr. Todd Moreno WBC 9.1 103/ul Normal 4.0-11.0 [facility] Comment on above: Performed By: #### P TT, PT #### Laboratory [address] [place] [address] Dr. Todd Moreno ER URINE PROFILEon 2 Bilirubin Ql (U) Negative Normal NEGATIVE [facility] Comment on above: Performed By: #### P TT, PT #### Laboratory [address] [place] [address] Dr. Todd Moreno Clarity (U) CLEAR Normal CLEAR [facility] Comment on above: Performed By: #### P TT, PT #### Laboratory [address] [place] [address] Dr. Todd Moreno Color (U) YELLOW Normal YELLOW [facility] Comment on above: Performed By: #### P TT, PT #### Laboratory [address] [place] [address] Dr. Todd EARLCristopher A micrscopic examination will be performed if indicated. Normal [facility] Comment on above: Performed By: #### P TT, PT #### Laboratory [address] [place] [address] Dr. Todd Moreno Glucose Ql (U) Negative Normal NEGATIVE [facility] Comment on above: Performed By: #### P TT, PT #### Laboratory [address] [place] [address] Dr. Todd Moreno Hemoglobin Ql (U) TRACE-INTACT Abnormal NEGATIVE [facility] Comment on above: Performed By: #### P TT, PT #### Laboratory [address] [place] [address] Dr. Todd Moreno Ketones Ql (U) Negative Normal NEGATIVE [facility] Comment on above: Performed By: #### P TT, PT #### Laboratory [address] [place] [address] Dr. Todd Moreno LEUKOCYTES SMALL Abnormal NEGATIVE [facility] Comment on above: Performed By: #### P TT, PT #### Laboratory [address] [place] [address] Dr. Todd Moreno Nitrite Ql (U) Negative Normal NEGATIVE [facility] Comment on above: Performed By: #### P TT, PT #### Laboratory [address] [place] [address] Dr. Todd Moreno pH (U) 6.5 [pH] Normal 5-9 [facility] Comment on above: Performed By: #### P TT, PT #### Laboratory [address] [place] [address] Dr. Todd Moreno SPEC GRAVITY 1.015 Normal 1.005-<=1.025 [facility] Comment on above: Performed By: #### P TT, PT #### Laboratory [address] [place] [address] Dr. Todd Moreno UA PROTEIN Negative Normal NEGATIVE/ TRACE The Comment on above: Performed By: #### P TT, PT #### Laboratory [address] [place] [address] Dr. Todd Moreno UR MICRO IND INDICATED Normal The Comment on above: Performed By: #### P TT, PT #### Laboratory [address] [place] [address] Dr. Todd Moreno Urobilinogen Qn (U) 0.2 {Tiffany'U}/dL Normal 0.2 - 1. 0 [facility] Comment on above: Performed By: #### P TT, PT #### Laboratory [address] [place] [address] Dr. Todd Moreno LIPASEon 01-31-2022 Lipase [Catalytic activity/Vol] 123.0 U/L Normal 73.0-393.0 [facility] Comment on above: Performed By: #### C MP, LIPA #### Laboratory [address] [place] [address] Dr. Todd Moreno PREG QUANT HCGon 01-31-2022 HCG QUANT 711 mIU/mL Normal [facility] Comment on above: Performed By: #### P TT, PT #### Laboratory [address] [place] [address] Dr. Todd Moreno HCG RANGE SEE BELOW Normal [facility] Comment on above: Result Comment: 5-50 0.2-1 WEEK 50-500 1-2 WEEKS 100-5,000 2-3 WEEKS 500-10,000 3-4 WEEKS 1,000-50,000 4-5 WEEKS 10,000-100,000 5-6 WEEKS 15,000-200,000 6-8 WEEKS 10,000-100,000 2-3 MONTHS Performed By: #### P TT, PT #### Laboratory [address] [place] [address] Dr. Todd Moreno PROF 14(COMP METB)on 022 Albumin [Mass/Vol] 3.7 g/dL Normal 3.4-5.0 [facility] Comment on above: Performed By: #### C MP, LIPA #### Laboratory [address] [place] [address] Dr. Todd Moreno Albumin/Globulin [Mass ratio] 1.0 {ratio} Normal [facility] Comment on above: Performed By: #### C MP, LIPA #### Laboratory [address] [place] [address] Dr. Todd Moreno ALP [Catalytic activity/Vol] 80 U/L Normal 46-116 The Comment on above: Performed By: #### C MP, LIPA #### Laboratory [address] [place] [address] Dr. Todd Moreno ALT [Catalytic activity/Vol] 23 U/L Normal 14-59 [facility] Comment on above: Performed By: #### C MP, LIPA #### Laboratory [address] [place] [address] Dr. Todd Moreno Anion gap [Moles/Vol] 10.2 mmol/L Normal [facility] Comment on above: Performed By: #### C MP, LIPA #### Laboratory [address] [place] [address] Dr. Todd Moreno AST [Catalytic activity/Vol] 14 U/L Critically low 15-37 [facility] Comment on above: Performed By: #### C MP, LIPA #### Laboratory [address] [place] [address] Dr. Todd Moreno Bilirubin [Mass/Vol] 0.3 mg/dL Normal 0.2-1.0 [facility] Comment on above: Performed By: #### C MP, LIPA #### Laboratory [address] [place] [address] Dr. Todd Moreno Calcium [Mass/Vol] 9.1 mg/dL Normal 8.5-10.1 [facility] Comment on above: Performed By: #### C MP, LIPA #### Laboratory [address] [place] [address] Dr. Todd Moreno Chloride [Moles/Vol] 104 mmol/L Normal 98-107 The Comment on above: Performed By: #### C MP, LIPA #### Laboratory [address] [place] [address] Dr. Todd Moreno CO2 [Moles/Vol] 26.8 mmol/L Normal 21.0-32.0 [facility] Comment on above: Performed By: #### C MP, LIPA #### Laboratory [address] [place] [address] Dr. Todd Moreno Creatinine [Mass/Vol] 0.87 mg/dL Normal 0.55-1.02 The Comment on above: Performed By: #### C MP, LIPA #### Laboratory [address] [place] [address] Dr. Todd Moreno EGFR-AF DOMINICAN >60 Normal >=60 [facility] Comment on above: Performed By: #### C MP, LIPA #### Laboratory [address] [place] [address] Dr. Todd Moreno EGFR-NON AF DOMINICAN >60 Normal >=60 The Comment on above: Performed By: #### C MP, LIPA #### Laboratory [address] [place] [address] Dr. Todd Moreno Globulin (S) [Mass/Vol] 3.7 g/dL Normal [facility] Comment on above: Performed By: #### C MP, LIPA #### Laboratory [address] [place] [address] Dr. Todd Moreno Glucose [Mass/Vol] 98 mg/dL Normal 74-106 [facility] Comment on above: Performed By: #### C MP, LIPA #### Laboratory [address] [place] [address] Dr. Todd Moreno Potassium [Moles/Vol] 4.0 mmol/L Normal 3.5-5.1 The Comment on above: Performed By: #### C MP, LIPA #### Laboratory [address] [place] [address] Dr. Todd Moreno Protein [Mass/Vol] 7.4 g/dL Normal 6.4-8.2 [facility] Comment on above: Performed By: #### C MP, LIPA #### Laboratory [address] [place] [address] Dr. Todd Moreno Sodium [Moles/Vol] 137 mmol/L Normal 136-145 [facility] Comment on above: Performed By: #### C MP, LIPA #### Laboratory [address] [place] [address] Dr. Todd Moreno Urea nitrogen [Mass/Vol] 15.0 mg/dL Normal 7.0-18.0 [facility] Comment on above: Performed By: #### C MP, LIPA #### Laboratory [address] [place] [address] Dr. Todd Moreno Urea nitrogen/Creatinine [Mass ratio] 17.2 mg/mg Normal [facility] Comment on above: Performed By: #### C MP, LIPA #### Laboratory [address] [place], [place] [id number] Dr. Todd Moreno URINE MICROSCOPIC ONLYon BACTERIA SMALL Abnormal NONE SEEN The Comment on above: Performed By: #### P TT, PT #### Laboratory [address] [place] [address] Dr. Todd Moreno Bacteria identified Cx Nom (U) INDICATED Normal The Comment on above: Performed By: #### P TT, PT #### Laboratory [address] [place] [address] Dr. Todd Moreno CAST NONE SEEN Normal NONE SEEN The Comment on above: Performed By: #### P TT, PT #### Laboratory [address] [place] [address] Dr. Todd Moreno Crystals LM Nom (Urine sed) NONE SEEN Normal NONE SEEN The Comment on above: Performed By: #### P TT, PT #### Laboratory [address] [place] [address] Dr. Todd Moreno Epithelial cells LM Ql (Urine sed) FEW Abnormal NONE SEEN /RARE The Comment on above: Performed By: #### P TT, PT #### Laboratory [address] [place] [address] Dr. Todd Moreno MUCOUS NONE SEEN Normal NONE SEEN The Comment on above: Performed By: #### P TT, PT #### Laboratory [address] [place] [address] Dr. Todd Moreno RBC 0-2 Normal 0-2 The Comment on above: Performed By: #### P TT, PT #### Laboratory [address] [place] [address] Dr. Todd Moreno WBC 10-20 Abnormal NONE SEEN The Comment on above: Performed By: #### P TT, PT #### Laboratory [address] [place] [address] Dr. Todd Moreno ESTROGENon 10-20-2021 Estrogens, Total 68 pg/mL Normal [facility] Comment on above: Result Comment: Prep ubertal < 40 Female Cycle: 1-10 Days 16 - 328 11-20 Days 34 - 501 21-30 Days 48 - 350 Post-Menopausal 40 - 244 Performed By: #### P TT, PT #### Laboratory [address] [address] [address] Todd Moreno ESTRADIOLon 10-16-2021 Estradiol 62.1 pg/mL Normal [facility] Comment on above: Result Comment: Adul t Female: Follicular phase 12.5 - 166.0 Ovulation phase 85.8 - 498.0 Luteal phase 43.8 - 211.0 Postmenopausal <6.0 - 54.7 1st trimester 215.0 - >4300.0 Ramos ECLIA methodology Performed By: #### E STRADI #### Laboratory [address] [place] [address] Dr. Todd Moreno FSHon 10-16-2021 FSH 5.6 mIU/mL Normal [facility] Comment on above: Result Comment: Adul t Female: Follicular phase 3.5 - 12.5 Ovulation phase 4.7 - 21.5 Luteal phase 1.7 - 7.7 Postmenopausal 25.8 - 134.8 Performed By: #### P TT, PT #### Laboratory [address] [place] [address] Dr. Todd Moreno LUTEINIZING HORMONE (LH)on 0 10-16-2021 LH 12.1 mIU/mL Normal [facility] Comment on above: Result Comment: Adul t Female: Follicular phase 2.4 - 12.6 Ovulation phase 14.0 - 95.6 Luteal phase 1.0 - 11.4 Postmenopausal 7.7 - 58.5 Performed By: #### P TT, PT #### Laboratory [address] [address] [address] Todd Moreno CBC AUTO DIFFon 10-15-2021 BASO # 0.0 103/ul Normal 0.0-0.1 [facility] Comment on above: Performed By: #### P TT, PT #### Laboratory [address] [place] [address] Dr. Todd Moreno Basophils/100 WBC (Bld) 0.6 % Normal 0.2-2.0 [facility] Comment on above: Performed By: #### P TT, PT #### Laboratory [address] [place] [address] Dr. Todd Moreno EO # 0.1 103/ul Normal 0.0-0.7 The Comment on above: Performed By: #### P TT, PT #### Laboratory [address] [place] [address] Dr. Todd Moreno Eosinophils/100 WBC (Bld) 2.1 % Normal 0.9-7.0 The Comment on above: Performed By: #### P TT, PT #### Laboratory [address] [place] [address] Dr. Todd Moreno Erythrocyte distribution width (RBC) [Ratio] 14.0 % Normal 11.0-15.0 The Comment on above: Performed By: #### P TT, PT #### Laboratory [address] [place] [address] Dr. Todd Moreno Hematocrit (Bld) [Volume fraction] 37.0 % Normal 36.0-48.0 The Comment on above: Performed By: #### P TT, PT #### Laboratory [address] [place] [address] Dr. Todd Moreno Hemoglobin (Bld) [Mass/Vol] 11.6 g/dL Critically low 12.0-16.0 The Comment on above: Performed By: #### P TT, PT #### Laboratory [address] [place] [address] Dr. Todd Moreno IG # 0.01 10e3/ul Normal 0.00-0.03 The Comment on above: Performed By: #### P TT, PT #### Laboratory [address] [place] [address] Dr. Todd Moreno IG % 0.2 % Normal 0.0-0.5 The Comment on above: Performed By: #### P TT, PT #### Laboratory [address] [place] [address] Dr. Todd Moreno LYMPH # 2.2 103/ul Normal 1.2-3.8 The Comment on above: Performed By: #### P TT, PT #### Laboratory [address] [place] [address] Dr. Todd Moreno Lymphocytes/100 WBC (Bld) 33.1 % Normal 20.5-60.0 [facility] Comment on above: Performed By: #### P TT, PT #### Laboratory [address] [place] [address] Dr. Todd Moreno MANUAL DIFF REQ NO Normal [facility] Comment on above: Performed By: #### P TT, PT #### Laboratory [address] [place] [address] Dr. Todd Moreno MCH (RBC) [Entitic mass] 26.3 pg Critically low 26.7-34.0 The Comment on above: Performed By: #### P TT, PT #### Laboratory [address] [place] [address] Dr. Todd Moreno MCHC (RBC) [Mass/Vol] 31.4 g/dL Normal 29.9-35.2 The Comment on above: Performed By: #### P TT, PT #### Laboratory [address] [place] [address] Dr. Todd Moreno MCV (RBC) [Entitic vol] 83.9 fL Normal 81.0-99.0 [facility] Comment on above: Performed By: #### P TT, PT #### Laboratory [address] [place] [address] Dr. Todd Moreno MONO # 0.2 103/ul Critically low 0.3-0.8 [facility] Comment on above: Performed By: #### P TT, PT #### Laboratory [address] [place] [address] Dr. Todd Moreno Monocytes/100 WBC (Bld) 3.5 % Normal 1.7-12.0 The Comment on above: Performed By: #### P TT, PT #### Laboratory [address] [place] [address] Dr. Todd Moreno NEUT # 4.0 103/ul Normal 1.4-6.5 The Comment on above: Performed By: #### P TT, PT #### Laboratory [address] [address] [address] Todd Moreno Neutrophils/100 WBC (Bld) 60.5 % Normal 43.0-75.0 [facility] Comment on above: Performed By: #### P TT, PT #### Laboratory [address] [address] [address] Todd Moreno Platelet mean volume (Bld) [Entitic vol] 10.6 fL Normal 9.5-13.5 [facility] Comment on above: Performed By: #### P TT, PT #### Laboratory [address] [address] [address] Todd Moreno PLT 263 103/ul Normal 150-450 [facility] Comment on above: Performed By: #### P TT, PT #### Laboratory [address] [place] [address] Dr. Todd Moreno RBC 4.41 106/ul Normal 4.20-5.40 [facility] Comment on above: Performed By: #### P TT, PT #### Laboratory [address] [place] [address] Dr. Todd Moreno WBC 6.6 103/ul Normal 4.0-11.0 [facility] Comment on above: Performed By: #### P TT, PT #### Laboratory [address] [place] [address] Dr. Todd Moreno FREE T4on 10-15-2021 Free T4 [Mass/Vol] 1.05 ng/dL Normal 0.76-1.46 [facility] Comment on above: Performed By: #### P TT, PT #### Laboratory [address] [place] [address] Dr. Todd Moreno PROTIMEon 10-15-2021 INR Coag (PPP) [Relative time] 1.02 {INR} Normal [facility] Comment on above: Performed By: #### P TT, PT #### Laboratory [address] [place] [address] Dr. Todd Moreno INR GUIDELINES SEE BELOW Normal [facility] Comment on above: Result Comment: RAMÓN RED INR: 2.0 - 3.0 CONDITIONS NOT LISTED BELOW 2.5 - 3.5 FOR PROSTHETIC HEART VALVE REPLACEMENT 2.5 - 3.5 RECURRENT THROMBOSIS Performed By: #### P TT, PT #### Laboratory [address] [place] [address] Dr. Todd Moreno PT Coag (PPP) [Time] 11.0 s Normal 9.0-11.6 [facility] Comment on above: Performed By: #### P TT, PT #### Laboratory [address] [place] [address] Dr. Todd Moreno PTTon 10-15-2021 aPTT Coag (Bld) [Time] 32.4 s Normal 22.3-36.2 [facility] Comment on above: Performed By: #### P TT, PT #### Laboratory [address] [place] [address] Dr. Todd Moreno TSHon 10-15-2021 TSH 1.777 uIU/mL Normal 0.358-3.740 [facility] Comment on above: Performed By: #### P TT, PT #### Laboratory [address] [place] [address] Dr. Todd Moreno PAP ACOG PANEL 2: 30 to 65on 10-10-2021 . . Normal [facility] Comment on above: Result Comment: Perf ormed at: WB Performed By: #### [id number] #### Laboratory [address] [place] [address] Dr. Todd Moreno Age Gdln ACOG Testing - [facility] Comment on above: Performed By: #### [id number] #### Laboratory [address] [place] [address] Dr. Todd Moreno DIAGNOSIS: Comment Normal [facility] Comment on above: Result Comment: NEGA TIVE FOR INTRAEPITHELIAL LESION OR MALIGNANCY. Performed at: WB Performed By: #### [id number] #### Laboratory [address] [place] [address] Dr. Todd Moreno HPV Aptima Negative Normal Negative [facility] Comment on above: Result Comment: This nucleic acid amplification test detects fourteen high-risk HPV types (16,18,31,33,35,39,45,51,52,56,58,59,66,68) without differentiation. Performed at: =G Performed By: #### [id number] #### Laboratory [address] [place] [address] Dr. Todd Moreno Methodology: Comment Normal [facility] Comment on above: Result Comment: This liquid based ThinPrep(R) pap test was screened with the use of an image guided system. Performed at: WB Performed By: #### [id number] #### Laboratory [address] [place] [address] Dr. Todd Moreno Note: Comment Normal [facility] Comment on above: Result Comment: The Pap smear is a screening test designed to aid in the detection of premalignant and malignant conditions of the uterine cervix. It is not a diagnostic procedure and should not be used as the sole means of detecting cervical cancer. Both false-positive and false-negative reports do occur. . Performed at: WB Performed By: #### [id number] #### Laboratory [address] [place] [address] Dr. Todd Moreno Performed by: Comment Normal [facility] Comment on above: Result Comment: Magalie Lemus, Kitchen Utility Associate (ASCP) Performed at: WB Performed By: #### [id number] #### Laboratory [address] [place] [address] Dr. Todd Moreno Specimen adequacy: Comment Normal [facility] Comment on above: Result Comment: Sati sfactory for evaluation. Endocervical and/or squamous metaplastic cells (endocervical component) are present. Performed at: WB Performed By: #### [id number] #### Laboratory [address] [place] [address] Dr. Todd Moreno COVID-19 Antigenon 2 COVID-19 Antigen Healthcare Worker?: Bandar Flores Reference Corinne Reference Negative SARS-CoV+SARS-CoV-2 (COVID-19) Ag [...] its performance Corinne Disclaimer characteristic determined by [employer] and Corinne Disclaimer validated at [facility]. This Corinne Disclaimer test has not been FDA cleared or approved. This Corinne Disclaimer test has been authorized by FDA under an Emergency Use Corinne Disclaimer Authorization (EUA). This test has been validated Corinne Disclaimer in accordance with the FDA's Guidance Document (Policy Corinne Disclaimer for Diagnostics Testing in Laboratories Certified to [employer] Perform High Complexity Testing under CLIA prior to Corinne Disclaimer Emergency Use Authorization for Coronavirus Corinne Disclaimer is during the Public Health Emergency) Corinne Disclaimer [...] is terminated or revoked sooner. PERFORMED BY: [place] [address] PATHOLOGIST PRODUCT SUPPORT CONSULTANT JONATHAN SHEPARD M.D. [facility] Comment on above: Performed By: #### S OFNANCYEG COVID-19 CORINNE #### [address] HCG,Urineon 03-30-2021 Beta HCG ( test) Ql (U) Negative [facility] Comment on above: Result Comment: PERF ORMED BY: [place] [address] PATHOLOGIST PRODUCT SUPPORT CONSULTANT JONATHAN SHEPARD M.D. Performed By: #### U HCG #### [address] Corinne Ag Negativeon 03-30-19 Corinne Ag Negative Negative Normal Negative [facility] Comment on above: Result Comment: This is a duplicate Corinne SARS Antigen (KAEL) result to be used for statistical tracking purpose only. PERFORMED BY: [place] [address] PATHOLOGIST PRODUCT SUPPORT CONSULTANT JONATHAN SHEPARD M.D. Performed By: #### S OFIANEG, COVID-19 CORINNE #### [facility] [address] [place] [address] COVID-19 FRMCon 03-28-2021 SARS-CoV-2 (COVID-19) RNA JESE+probe Ql (Unsp spec) Negative Normal Negative [facility] Comment on above: Order Comment: Healt hcare Worker?: N Result Comment: Testing for SARS-CoV-2 by RT-PCR This test was developed and its performance characteristics determined by [employer] and validated at the [facility]. This test has not been FDA cleared [...] is terminated or revoked sooner. PERFORMED BY: [place] [address] PATHOLOGIST PRODUCT SUPPORT CONSULTANT JONATHAN SHEPARD M.D. Performed By: #### C OVID 19 [facility] #### [place] [id number] [facility] XR elbow LT 2Von 03-01-2021 XR elbow LT 2V [facility] [employer] [address] [place] [address] XRay Report Signed Patient: Moira Almaguer MR#: [id number] : 1985 Acct:[id number] Age/Sex: 35 / F ADM Date: 03/01/21 Loc: [facility] Room: Type: [facility] Attending Dr: Leandro Robles MD [...] Valdez Mcwilliams M.D.03/01/2021 1:47 PM Dictation Location: [place] [address] Transcribed By: [facility] 03/01/21 134 Dictated By: Valdez Mcwilliams DO 03/01/21 1344 Signed By: 03/01/21 134 [facility] XR FOREARM LEFT 2 VIEWSon XR [...] are recommended in 7 to 10 days. [facility]/[employer] Workstation ID: [id number] Dictated by: MAR DAWSON on SunSep 08, 2020 11:41:42 PM EDT Transcribed by: SHERRILL SMYTH on SunSep 09, 2020 12:10:05 AM EDT Finalized by: MAR DAWSON on SunSep 09, 2020 12:16:26 AM EDT [facility] Comment on above: Order Comment: Injur [...] on SunSep 08, 2020 11:42:00 PM EDT [facility] Comment on above: Order Comment: Injur y/Trauma or Illness?:Injury/Trauma How long have you had these symptoms (acute/chronic)?:Acute Reason for exam?:fall, pain to left shoulder radiating down arm History of cancer?:no Surgeries, chemotherapy, or radiation?:no Type of Exam?:Initial Mechanism of injury?:fall Vital Signs Date Time Vital Sign Value Performing Clinician Facility 03-25-2024 14:23-0500 Body mass index (BMI) [Ratio] 35.71 kg/m2 Iveth MCGRATH Work Phone: [facility] 03-25-2024 14:23-0500 Body weight 103.42 kg Iveth MCGRATH Work Phone: [facility] 03-25-2024 14:23-0500 Diastolic blood pressure 70 mm[Hg] Iveth MCGRATH Work Phone: [facility] 03-25-2024 14:23-0500 Systolic blood pressure 108 mm[Hg] Iveth MCGRATH Work Phone: [facility] 02-20-2024 11:40-0500 Body mass index (BMI) [Ratio] 34.68 kg/m2 Rogers James DO Work Phone: [facility] 02-20-2024 11:40-0500 Body weight 100.43 kg Rogers James DO Work Phone: [facility] 02-20-2024 11:40-0500 Diastolic blood pressure 70 mm[Hg] Rogers James DO Work Phone: [facility] 02-20-2024 11:40-0500 Systolic blood pressure 120 mm[Hg] Rogers James DO Work Phone: [facility] 02-07-2024 11:42-0500 Body mass index (BMI) [Ratio] 34.3 kg/m2 Iveth [place] Work Phone: [facility] 02-07-2024 11:42-0500 Body weight 99.34 kg Iveth Paresh PA Work Phone: [facility] 02-07-2024 11:42-0500 Diastolic blood pressure 70 mm[Hg] Iveth [place] PA Work Phone: [facility] 02-07-2024 11:42-0500 Systolic blood pressure 118 mm[Hg] Iveth Paresh PA Work Phone: [facility] 01-10-2024 10:44-0400 Body mass index (BMI) [Ratio] 33.89 kg/m2 Rogers James DO Work Phone: [facility] 01-10-2024 10:44-0400 Body weight 98.16 kg Rogers James DO Work Phone: [facility] 01-10-2024 10:44-0400 Diastolic blood pressure 74 mm[Hg] Rogers James DO Work Phone: [facility] 01-10-2024 10:44-0400 Systolic blood pressure 120 mm[Hg] Rogers James DO Work Phone: [facility] 12-13-2023 10:51-0400 Body mass index (BMI) [Ratio] 33.33 kg/m2 Rogers James DO Work Phone: [facility] 12-13-2023 10:51-0400 Body weight 96.53 kg Rogers James DO Work Phone: [facility] 12-13-2023 10:51-0400 Diastolic blood pressure 80 mm[Hg] Rogers James DO Work Phone: [facility] 12-13-2023 10:51-0400 Systolic blood pressure 126 mm[Hg] Rogers James DO Work Phone: [facility] 11-15-2023 10:14-0400 Body mass index (BMI) [Ratio] 33.11 kg/m2 Rogers James DO Work Phone: [facility] 11-15-2023 10:14-0400 Body weight 95.89 kg Rogers James DO Work Phone: [facility] 11-15-2023 10:14-0400 Diastolic blood pressure 78 mm[Hg] Rogers James DO Work Phone: [facility] 11-15-2023 10:14-0400 Systolic blood pressure 118 mm[Hg] Rogers James DO Work Phone: [facility] 03-01-2021 11:00-0500 Body height 170.18 cm Leandro Mckenziexa Other [facility] Other 03-01-2021 11:00-0500 Body mass index (BMI) [Ratio] 30.07 kg/m2 Leandro Olexa Other [facility] Other 03-01-2021 11:00-0500 Body weight 87.09 kg Leandro Olexa Other [facility] Other Encounters Encounter Date Encounter Type Care Provider Facility Start: 03-25-2024 End: 03-25-2024 Jn MCGRATH Work Phone: [facility] Start: 03-25-2024 End: 03-25-2024 Bamboo flowsheet Iveth MCGRATH Work Phone: [facility] Start: 03-25-2024 End: 03-25-2024 ambulatory IVETH HOOD Not Available Start: 03-25-2024 End: 03-25-2024 flow sheet Iveth MCGRATH Work Phone: [facility] Comment on above: 34 weeks gestation o f ; Third trimester Start: 03-10-2024 End: 03-10-2024 Bamboo flowsheet Rogers [...] Work Phone: [facility] Unsolicited Start: 02-20-2024 End: 02-20-2024 [...] second trimester Start: 02-04-2024 End: 02-04-2024 ambulatory [facility] Start: 01-30-2024 End: 01-30-2024 ambulatory [facility] Start: 01-23-2024 End: 01-23-2024 Telephone encounter [...] Not Available Start: 01-07-2024 End: 01-07-2024 ambulatory [facility] Start: 12-24-2023 End: 12-24-2023 ambulatory [facility] Start: 12-13-2023 End: 12-13-2023 Bamboo flowsheet Rogers James DO Work Phone: [facility] Start: 12-13-2023 End: 12-14-2023 Bamboo flowsheet Rogers James DO Work Phone: [facility] Start: 12-13-2023 End: 12-14-2023 External Result Encounter Rogers James DO Work Phone: [facility] External Department Unsolicited Start: 12-13-2023 End: 12-13-2023 ambulatory ROGERS JAMES Not Available Start: 12-13-2023 End: 12-13-2023 flow sheet Rogers James DO Work Phone: [facility] Comment on above: 19 weeks gestation o f ; Exposure to STD; Vaginal discharge; Elevated glucose Start: 11-15-2023 End: 11-15-2023 Bamboo flowsheet Rogers James DO Work Phone: [facility] Start: 11-15-2023 End: 11-15-2023 Bamboo flowsheet Rogers James DO Work Phone: [facility] Start: 11-15-2023 End: 11-15-2023 ambulatory ROGERS JAMES Not Available Start: 11-15-2023 End: 11-15-2023 flow sheet Rogers James DO Work Phone: [facility] Comment on above: Second trimester pre gnancy; History of gestational diabetes; Diabetes mellitus screening; Screening, , for anatomic survey Start: 11-07-2023 End: 11-07-2023 Clinisync Result Encounter Iveth MCGRATH Work Phone: [facility] External Department Unsolicited Start: 11-07-2023 End: 11-07-2023 Clinisync Result Encounter Iveth MCGRATH Work Phone: [facility] External Department Unsolicited Start: 10-18-2023 End: [...] 03-01-2021 End: 03-01-2021 ambulatory Leandro Robles Other [facility] Other Start: 03-01-2021 Encounter for other preprocedural examination Leandro Robles [facility] Start: 03-01-2021 Office outpatient ne w 45 minutes Leandro Robles [facility] Start: 09-09-2020 End: 09-09-2020 Emergency department patient visit [facility] Procedures Date Procedure Procedure Detail Performing Clinician Start: 03-25-2024 Urnls dip stick/tabl et rgnt non-auto w/o micrscp Iveth MCGRATH Work Phone: Start: 03-10-2024 Urnls dip stick/tabl et rgnt [...] Phone: Start: 12-13-2023 URETHRITIS/DISCHAR[facility]IS [facility] Work Phone: Start: 12-13-2023 Urnls dip stick/tabl et rgnt non-auto w/o micrscp Rogers James DO Work Phone: Start: 11-15-2023 Urnls dip stick/tabl et rgnt non-auto w/o micrscp Rogers James DO Work Phone: Start: 11-07-2023 ALL CBC WITH AUTO DIFF Iveth MCGRATH Work Phone: Start: 03-08-2023 Microscopic observat ion [Identifier] in Cervix by Cyto stain [facility] DO Work Phone: Start: 03-08-2023 Cytp cerv/vag auto t hin layer prep mnl screen [facility] DO Work Phone: Start: 10-05-2021 Microscopic observat ion [Identifier] in Cervix by Cyto stain Iveth MCGRATH Work Phone: Plan of Treatment Date Care Activity Detail Author Start: 03-08-2028 Screening for malign ant neoplasm of cervix [facility] Start: 10-05-2026 Screening for malign ant neoplasm of cervix [facility] Start: 04-09-2024 End: 04-09-2024 Patient encounter procedure 04/09/2024 1:30 PM EST [facility]ine [facility] [address] [place] [address] Rogers Ramirez [address] [place] [address] [facility] Start: 03-24-2024 End: 03-24-2024 Patient encounter procedure 03/24/2024 11:20 AM EST [facility] [address] [place] [address] Iveth Hood PA [address] [place], [place] [id number] [facility] Start: 03-10-2024 End: 03-10-2025 US biophysical profile w non stress test US biophysical profile w non stress test Imaging Routine 32 weeks gestation of Third trimester History of gestational diabetes Expected: 03/10/2024 (Approximate), Expires: 03/10/2025 [facility] Work Phone: Comment on above: Expected: 03/10/2024 (Approximate), Expires: 03/10/2025 Start: 03-10-2024 End: 03-10-2024 Patient encounter procedure 03/10/2024 9:30 AM EST Routine [facility] [address] [place] [id number] Rogers Ramirez, DO [address] [place] [address] [facility] Start: 02-20-2024 End: 02-19-2025 CBC panel - Blood by Automated count CBC Lab Routine Diabetes mellitus screening Expected: 02/20/2024 (Approximate), Expires: 02/19/2025 [facility] Work Phone: Comment on above: Expected: 02/20/2024 (Approximate), Expires: 02/19/2025 Start: 02-20-2024 End: 02-20-2024 Patient encounter procedure 02/20/2024 11:00 AM EST Routine [facility] [address] [facility] [facility] [place] [phone] Rogers Ramirez, DO [address] [place] [address] [facility] Start: 02-07-2024 End: 02-06-2025 US for US OB SCAN FOR GROWTH Imaging Routine size consistent with dates during in second trimester Expected: 02/07/2024 (Approximate), Expires: 02/06/2025 [facility] Work Phone: Comment on above: Expected: 02/07/2024 (Approximate), Expires: 02/06/2025 Start: 02-07-2024 End: 02-07-2024 Patient encounter procedure 02/07/2024 11:20 AM EST Routine [facility] [address] [place] [phone] Iveth Hood PA [address] [place], [place] [id number] [facility] Start: 01-10-2024 End: 01-10-2024 Patient encounter procedure [facility] Comment on above: Arrived Start: 12-17-2023 End: 12-17-2023 Professional / ancillary services management 12/17/2023 8:00 AM EDT Ancillary Procedure [facility] [address] [place] [phone] [facility] Start: 12-13-2023 End: 01-12-2024 Alpha fetoprotein, maternal Alpha fetoprotein, maternal Lab Routine 19 weeks gestation of Expected: 12/13/2023 (Approximate), Expires: 01/12/2024 [facility] Comment on above: Expected: 12/13/2023 (Approximate), Expires: 01/12/2024 Start: 12-13-2023 End: 12-13-2023 Patient encounter procedure 12/13/2023 10:10 AM EDT Routine [facility] [address] [place] [phone] Rogers Ramirez DO [address] [place], [place] [id number] [facility] Start: 11-18-2023 Influenza vaccination Influenza Vacc ine (#1) [facility] Start: 11-15-2023 End: 11-14-2024 Measurement of glucose 1 hour after glucose challenge for glucose tolerance test Glucose tolerance, 1 hour Lab Routine Diabetes mellitus screening Expected: 11/15/2023 (Approximate), Expires: 11/14/2024 [facility] Work Phone: Comment on above: Expected: 11/15/2023 (Approximate), Expires: 11/14/2024 Start: 11-15-2023 End: 11-14-2024 US for US OB ANATOMY SINGLE W US OB CERVICAL LENGTH Imaging Routine Second trimester History of gestational diabetes Screening, , for anatomic survey Expected: 11/15/2023 (Approximate), Expires: 11/14/2024 [facility] Comment on above: Expected: 11/15/2023 (Approximate), Expires: 11/14/2024 Start: 11-15-2023 End: 11-15-2023 Patient encounter procedure 11/15/2023 9:50 AM EDT Routine [facility] [address] [place] [address] Rogers Ramirez DO [address] [place] [address] [facility] CHLAMYDIA TRACHOMATI S (GENITO/STI) CHLAMYDIA TRACHOMATIS (GENITO/STI) Lab Routine Exposure to STD Ordered: 12/13/2023 [facility] Comment on above: Ordered: 12/13/2023 Hemoglobin A1c/Hemoglobin.total in Blood Hemoglobin A1c Lab Routine Diabetes mellitus screening Ordered: 02/20/2024 [facility] Comment on above: Ordered: 02/20/2024 Neisseria gonorrhoea e DNA [Presence] in Unspecified specimen by JESE with probe detection Neisseria gonorrhea DNA probe, direct Lab Routine Exposure to STD Ordered: 12/13/2023 [facility] Comment on above: Ordered: 12/13/2023 SURESWAB(R) ADVANCED VAGINITIS PLUS, TMA SURESWAB(R) ADVANCED VAGINITIS PLUS, TMA Pathology and Cytology Routine Vaginal discharge Ordered: 12/13/2023 [facility] Work Phone: Comment on above: Ordered: 12/13/2023 Immunizations Immunization Date Immunization Notes Care Provider Sarah connors 12-26-2016 influenza virus vacc ine, unspecified formulation Iveth MCGRATH Work Phone: [facility] Payers Date Payer Category Payer Private Health Insurance [id number] 2021 Private Health Insurance [facility] [id number] 2021 Unknown [facility] [id number] 2021-Present [phone] [address] [id number] 2019 Unknown [id number] 1986 Unknown [id number] 2.16.840.1.575705.3.579.2. 902 1986 Unknown [id number] 2.16.840.1.565000.3.579.2. 593 1986 Unknown [id number] 2.16.840.1.583023.3.579.2. 593 1986 Unknown [id number] 2.16.840.1.911816.3.579.2. 593 1986 Unknown [id number] 2.16.840.1.646608.3.579.2. 593 1986 Unknown [id number] 2.16.840.1.779318.3.579.2. 593 1986 Unknown [id number] 2.16.840.1.080558.3.579.2. 593 1986 Unknown [id number] 2.16.840.1.933572.3.579.2. 128 1986 Unknown [id number] 2.16.840.1.411724.3.579.2. 1285 1986 Unknown [id number] 2.16.840.1.766868.3.579.2. 1285 1986 Unknown [id number] 2.16840.1.133512.3.579.2. 1285 1986 Unknown [id number] 2.16840.1.559703.3.579.2. 1258 1986 Unknown [id number] 2.16840.1.851542.3.579.2. 1258 1986 Unknown [id number] 2.16840.1.173933.3.579.2. 1258 1986 Unknown [id number] 2.840.1.785413.3.579.2. 1258 1986 Unknown [id number] 2.840.1.023488.3.579.2. 1258 1986 Unknown [id number] 2.840.1.225535.3.579.2. 1258 1986 Unknown [id number] 2.16840.1.300776.3.579.2. 1258 1986 Unknown [id number] 2840.1.607588.3.579.2. 1258 1986 Unknown [id number] 840.1.460151.3.579.2. 1259 1959 Self-pay 1959 Unknown [id number] 1959 Unknown [id number] 1959 Unknown [id number] Unknown [id number] 05.04.840.1.099219.3.579.2. 593 Social History Date Type Detail Facility Start: 10-15-2022 End: 02-05-2023 Sex Assigned At [facility] Start: 02-12-2023 Tobacco smoking status NHIS Ex-smoke r [facility] End: 08-19-2011 History of tobacco use Current smoker [facility] End: 08-19-2011 History of tobacco use Cigarette Smoker [facility] Start: 02-12-2023 Tobacco use and exposure Smoke less tobacco non-user [facility] Start: 01-10-2024 End: 03-10-2024 Alcoholic beverage intake Ex-drinker (finding) [facility] Start: 10-15-2022 End: 02-05-2023 History of Social function [facility] re Within the last year , have you been afraid of your partner or ex-partner? No [facility] Do you belong to any clubs or organizations such as latter day groups, unions, fraternal or athletic groups, or [...] To some extent [facility] (I/We) worried wheth er (my/our) food would run out before (I/we) got money to buy more. Never true [facility] Start: 02-10-2023 Alcohol Comment Caffeine: 1-2 cups/d ay [facility] Start: 08-11-2023 [facility] Start: 1985 Sex assigned at Female [facility] Start: 08-23-2022 Gender identity Identifies as female gender (finding) [facility] Clinical Notes 03-01-2021 to 03-25-2024 RAMILA Joshi - 03/25/2024 1:40 PM Stephanie Vincent MA - 03/10/2024 9:30 AM RAMILA Pompa - 02/20/2024 11:00 AM RAMILA Pompa - 02/07/2024 11:20 AM EST Note Date & Type Note Facility 03-25-2024 History of Presen t illness Narrative Reason for Appointment: Patient ID: Moira Starr is a 38 y.o. female who presents for No chief complaint on file. Patient presents today for Return OB appointment. MEDICATIONS Current Outpatient Medications Medication Instructions Continuous Glucose Tool Straightener (FreeStyle Adriana 2 Hanover) device 1 Device, Does not apply, 4 times daily Continuous Glucose Sensor (FreeStyle Adriana 2 Plus Sensor) misc 1 Units, Does not apply, Every 14 days iron polysaccharides (PROFE) 391.3 mg, Oral, Daily MV-Min-Fe Fum-FA-DHA ( 1 PO) Take by [...] weeks gestation of 03/10/2024 Third trimester 03/10/2024 34 weeks gestation of 03/25/2024 Resolved Ambulatory Problems Diagnosis Date Noted No [...] Types: Cigarettes Quit date: 08/19/2011 Years since quittin.6 Smokeless tobacco: Never Substance Use Topics Alcohol [...] nursing note reviewed. Exam conducted with a terminal supervisor present. Vitals: Estimated body mass index is 34.68 kg/m as calculated from the following: Height as of 02/12/23: 5' 7 . Weight as of 02/20/24: 221 lb 6.4 oz. BP: Patient's last menstrual period was 07/28/2023. ASSESSMENT & PLAN ICD-10-CM 1. 34 weeks gestation of Z3A.34 POCT urinalysis dipstick manually resulted 2. Third trimester Z34.93 POCT urinalysis dipstick manually resulted Patient presents today for a routine obstetrics appointment. Patient is currently 34w3d with a Estimated Date of Delivery: 05/03/24. Documented by Belen Oconnell LPN on behalf of: RAMILA Joshi documented in this encounter [facility] 03-10-2024 History of Presen t illness Narrative Reason for Appointment: Patient ID: Moira Starr is a 38 y.o. female who presents for Routine Visit Patient presents today for Return OB appointment. MEDICATIONS Current Outpatient Medications Medication Instructions Continuous Glucose Tool Straightener (FreeStyle Adriana 2 Hanover) device 1 Device, Does not apply, 4 times daily MV-Min-Fe Fum-FA-DHA ( 1 PO) Take by mouth. saccharomyces boulardii (FLORASTOR) 250 mg, 2 times daily ALLERGIES Allergies Allergen Reactions Sertraline Other Flat emotions Other Reaction(s): decreased emotional lability PROBLEMS Active Ambulatory Problems Diagnosis Date Noted Attention deficit hyperactivity disorder (ADHD) ([facility]) 09/15/2022 Cervicalgia 09/15/2022 Chronic fatigue 09/15/2022 Chronic tension-type headache, not intractable 09/15/2022 Generalized anxiety disorder ([facility]) 09/15/2022 HPV (human papilloma virus) infection 09/15/2022 Large breasts 09/15/2022 LGSIL on Pap smear of cervix 09/15/2022 Migraine with aura and without status migrainosus, not intractable ([facility]) 09/15/2022 Missed period 09/15/2022 Moderate recurrent major depression ([facility]) 09/15/2022 Other chronic pain 09/15/2022 Radicular pain 09/15/2022 Vitamin D deficiency 09/15/2022 History of miscarriage 06/22/2023 Positive urine test 06/22/2023 23 weeks gestation of 01/10/2024 32 weeks gestation of 03/10/2024 Third trimester 03/10/2024 Resolved Ambulatory Problems Diagnosis Date Noted No Resolved Ambulatory Problems Past Medical History: Diagnosis Date ADHD (attention deficit hyperactivity disorder) ([facility]) ADHD (attention deficit hyperactivity disorder) ([facility]) Ankle pain, left Anxiety with depression Epidermal inclusion cyst Fall with injury Gastro-esophageal reflux disease without esophagitis Headache History of cigarette smoking IBS (irritable bowel syndrome) Influenza Irritable bowel syndrome without diarrhea Mononucleosis syndrome Pain in thoracic spine Perennial allergic rhinitis Scoliosis Sinusitis URI (upper respiratory infection) HISTORY PAST MEDICAL HISTORY SOCIAL HISTORY Past Medical History: Diagnosis Date ADHD (attention deficit hyperactivity disorder) ([facility]) ADHD (attention deficit hyperactivity disorder) ([facility]) Ankle pain, left Anxiety with depression Anxiety/depression [...] Rogers Ramirez DO documented in this encounter [facility] 02-20-2024 History of Presen t illness Narrative Reason for Appointment: Patient ID: Moira Starr is a 38 y.o. female who presents for Routine Visit Patient presents today for Return OB appointment. MEDICATIONS Current Outpatient Medications Medication Instructions Continuous Glucose Tool Straightener (FreeStyle Adriana 2 Hanover) device 1 Device, Does not apply, 4 times daily MV-Min-Fe Fum-FA-DHA ( 1 PO) Take by mouth. saccharomyces boradhai (FLORASTOR) 250 mg, 2 times daily ALLERGIES Allergies Allergen Reactions Sertraline Other Flat emotions Other Reaction(s): decreased emotional lability PROBLEMS Active Ambulatory Problems Diagnosis Date Noted Attention deficit hyperactivity disorder (ADHD) ([facility]) 09/15/2022 Cervicalgia 09/15/2022 Chronic fatigue 09/15/2022 Chronic tension-type headache, not intractable 09/15/2022 Generalized anxiety disorder ([facility]) 09/15/2022 HPV (human papilloma virus) infection 09/15/2022 Large breasts 09/15/2022 LGSIL on Pap smear of cervix 09/15/2022 Migraine with aura and without status migrainosus, not intractable ([facility]) 09/15/2022 Missed period 09/15/2022 Moderate recurrent major depression ([facility]) 09/15/2022 Other chronic pain 09/15/2022 Radicular pain 09/15/2022 Vitamin D deficiency 09/15/2022 History of miscarriage 06/22/2023 Positive urine test 06/22/2023 23 weeks gestation of 01/10/2024 Resolved Ambulatory Problems Diagnosis Date Noted No Resolved Ambulatory Problems Past Medical History: Diagnosis Date ADHD (attention deficit hyperactivity disorder) ([facility]) ADHD (attention deficit hyperactivity disorder) ([facility]) Ankle pain, left Anxiety with depression Epidermal inclusion cyst Fall with injury Gastro-esophageal reflux disease without esophagitis Headache History of cigarette smoking IBS (irritable bowel syndrome) Influenza Irritable bowel syndrome without diarrhea Mononucleosis syndrome Pain in thoracic spine Perennial allergic rhinitis Scoliosis Sinusitis URI (upper respiratory infection) HISTORY PAST MEDICAL HISTORY SOCIAL HISTORY Past Medical History: Diagnosis Date ADHD (attention deficit hyperactivity disorder) ([facility]) ADHD (attention deficit hyperactivity disorder) ([facility]) Ankle pain, left Anxiety with depression Anxiety/depression [...] Rogers Ramirez DO documented in this encounter [facility] 02-07-2024 History of Presen t illness Narrative Reason for Appointment: Patient ID: Moira Starr is a 38 y.o. female who presents for Routine Visit Patient presents today for Return OB appointment. MEDICATIONS Current Outpatient Medications Medication Instructions Continuous Glucose Tool Straightener (SequenomStyle Adriana 2 Hanover) device 1 Device, Does not apply, 4 times daily ergocalciferol (VITAMIN D2) 1.25 mg, Oral, Weekly MV-Min-Fe Fum-FA-DHA ( 1 PO) Oral saccharomyces boulardii (FLORASTOR) 250 mg, Oral, 2 times daily ALLERGIES Allergies Allergen Reactions Sertraline Other Flat emotions Other Reaction(s): decreased emotional lability PROBLEMS Active Ambulatory Problems Diagnosis Date Noted Attention deficit hyperactivity disorder (ADHD) ([facility]) 09/15/2022 Cervicalgia 09/15/2022 Chronic fatigue 09/15/2022 Chronic [...] Diagnosis Date ADHD (attention deficit hyperactivity disorder) ([facility]) ADHD (attention deficit hyperactivity disorder) (CMS/HCC) Ankle [...] of: RAMILA Joshi documented in this encounter [facility] 01-23-2024 Telephone encount er Note Endocrinology called [...] we will have to put her with [facility] of her choice (since she would be a returning Angelina pt) to establish care. [facility] 01-23-2024 Miscellaneous Notes Formattin g of this [...] we will have to put her with [facility] of her choice (since she would be a returning Angelina pt) to establish care. documented in this encounter [facility] 01-10-2024 History of Presen t illness Narrative Reason for Appointment: Patient ID: Moira Starr is a 38 y.o. female who presents for Routine Visit Patient presents today for Return OB appointment. MEDICATIONS Current Outpatient Medications Medication Instructions Continuous Glucose Tool Straightener (FreeStyle Adriana 2 Hanover) device 1 Device, Does not apply, 4 [...] Date Noted Attention deficit hyperactivity disorder (ADHD) ([facility]) 09/15/2022 Cervicalgia 09/15/2022 Chronic fatigue 09/15/2022 Chronic tension-type headache, not intractable 09/15/2022 Generalized anxiety disorder ([facility]) 09/15/2022 HPV (human papilloma virus) infection 09/15/2022 Large breasts 09/15/2022 LGSIL on Pap smear of cervix 09/15/2022 Migraine with aura and without status migrainosus, not intractable (CMS/HCC) 09/15/2022 Missed period 09/15/2022 Moderate recurrent major depression ([facility]) 09/15/2022 Other chronic pain 09/15/2022 Radicular pain 09/15/2022 Vitamin D deficiency 09/15/2022 History of miscarriage 06/22/2023 Positive urine test 06/22/2023 Resolved Ambulatory Problems Diagnosis Date Noted No Resolved Ambulatory Problems Past Medical History: Diagnosis Date ADHD (attention deficit hyperactivity disorder) ([facility]) ADHD (attention deficit hyperactivity disorder) ([facility]) Ankle pain, left Anxiety with depression Epidermal inclusion cyst Fall with injury Gastro-esophageal reflux disease without esophagitis Headache History of cigarette smoking IBS (irritable bowel syndrome) Influenza Irritable bowel syndrome without diarrhea Mononucleosis syndrome Pain in thoracic spine Perennial allergic rhinitis Scoliosis Sinusitis URI (upper respiratory infection) HISTORY PAST MEDICAL HISTORY SOCIAL HISTORY Past Medical History: Diagnosis Date ADHD (attention deficit hyperactivity disorder) ([facility]) ADHD (attention deficit hyperactivity disorder) ([facility]) Ankle pain, left Anxiety with depression Anxiety/depression [...] nursing note reviewed. Exam conducted with a terminal supervisor present. Vitals: Estimated body mass index is [...] Rogers Ramirez DO documented in this encounter [facility] 12-13-2023 History of Presen t illness Narrative Reason for Appointment: Patient ID: Moira Starr is a 38 y.o. female who presents for Routine Visit and STI Screening Patient presents today for Return OB appointment. MEDICATIONS Current Outpatient Medications Medication Instructions Continuous Glucose Tool Straightener (FreeStyle Adriana 2 [place]) device 1 Device, Does not apply, 4 [...] nursing note reviewed. Exam conducted with a terminal supervisor present. Vitals: Estimated body mass index is [...] Rogers Ramirez DO documented in this encounter [facility] 11-15-2023 History of Presen t illness Narrative [...] or undercooked meat, and stay away from [facility]. Patient has been consulted regarding any further [...] Iveth Hood PA-C documented in this encounter [facility] 03-01-2021 Evaluation note Encounter Date Diagnosis Assessment Notes Feb, Closed fracture of capitellum of left humerus with routine healing (ICD-10 - S42.452D) MRI reviewed with patient as healing fractures within the elbow. Discussed that her lacking range of motion may be a care home condition, with or without surgical intervention. Instructed [...] Feb, Left elbow pain (ICD-10 - M25.522) 14 Feb, 2021 Loose body in left elbow (ICD-10 - M24.022) 14 Feb, 2021 Pre-op exam (ICD-10 - Z01.818) [facility] Other Evaluation note* Diagnosis Second trimester state, [...] unspecified type [facility] Diagnosis 34 weeks gestation of Third trimester state, incidental [facility] N[facility]ative - Reported* Type Description Date Medical History ADHD [facility] Other Summary Purpose Family History No Family [...] content) DATE CREATED AUTHOR 09/14/2020 [facility] DATE CREATED AUTHOR AUTHOR'S ORGANIZ ATION 10/06/2021 [facility] DATE CREATED AUTHOR AUTHOR'S ORGANIZ ATION 06/08/2022 [facility] DATE CREATED AUTHOR AUTHOR'S ORGANIZ ATION 02/06/2024 [facility] DATE CREATED AUTHOR AUTHOR'S ORGANIZ ATION 03/31/2024 [facility] EPIC REASON FOR VISIT (unrecogniz ed section and content) Reason Comments Routine Visit Reason Comments Routine Visit STI Screening Care Teams (unrecognized sec tion and content) Cuff Knitter Relationship Specialty Start Date End Date Emily Alfaro DO [address] [facility] [place] [address] PCP - General Family Medicine 09/14/22 Cuff Knitter Relationship Specialty Start Date End Date Emily Alfaro DO [address] [facility] [place] [address] PCP - General Family Medicine 09/14/22 Cuff Knitter Relationship Specialty Start Date End Date Emily Alfaro [address] [facility] [place] [address] PCP - General Family Medicine 09/14/22 Cuff Knitter Relationship Specialty Start Date End Date AngelinaEmily LorenDO [address] [facility] [place] [address] PCP - General Family Medicine 09/14/22 Cuff Knitter Relationship Specialty Start Date End Date AngelinaEmily Loren DO [address] [facility] [place] [address] PCP - General Family Medicine 09/14/22 Cuff Knitter Relationship Specialty Start Date End Date Emily Alfaro LorenDO [address] [facility] [place] [address] PCP - General Family Medicine 09/14/22 Cuff Knitter Relationship Specialty Start Date End Date AngelinaEmily Loren [address] [facility] [place] [address] PCP - General Family Medicine 09/14/22 Cuff Knitter Relationship Specialty Start Date End Date Emily Alfaro DO [address] [place] [address] PCP - [facility] 09/14/22 Cuff Knitter Relationship Specialty Start Date End Date Emily Alfaro DO [address] [place] [address] PCP - [facility] 09/14/22 Cuff Knitter Relationship Specialty Start Date End Date Emily Alfaro DO [address] [place] [address] PCP - [facility] 09/14/22 Cuff Knitter Relationship Specialty Start Date End Date Emily Alfaro DO [address] [facility] [place] [address] PCP - General [facility] 09/14/22 FOR RECORDS PERTAINING TO PATIENTS WHO [...] BE BASED ON THE PRIMARY CLINICAL RECORDS. [facility]. provides no warranty or guarantee of the accuracy or completeness of information in this document.
--- NOTE | 2024-04-03 07:45 | US_ITS ---
[address] [address] Patient Name: DANYELL ROSENBERG MRN: [id number] date: 1985 Sex: F Assigned Patient Location: [facility] Current Patient Location: [facility] Accession/Order Number: [id number] Exam Date: 04/03/2024 07:50 Report Date: 04/03/2024 08:39 At the request of: ROGERS HODGE Procedure: US OB BPP w non-stress EXAMINATION: US OB BPP w non-stress HISTORY: History of gestational diabetes COMPARISON: No relevant comparison available. TECHNIQUE: Ultrasound biophysical profile was performed in the radiology department. non-reactive stress testing was performed by nursing staff in the birthing center. FINDINGS: BREATHING MOVEMENTS: 0 GROSS BODY MOVEMENTS: 2 TONE: 2 QUALITATIVE AMNIOTIC FLUID VOLUME: 0 PRESENTATION: CEPHALIC HEART RATE: 145.95 bpm AMNIOTIC FLUID VOLUME: 15.3 cm GESTATIONAL AGE: 35 weeks 5 days US/US OB BPP w non-stress IMPRESSION: Total biophysical profile score: 6 Electronically authenticated by: CARIDAD DOBSON Date: 04/03/2024 08:39
[2024-04-03 08:31] VITALS: BP 124/74; PULSE 87
== END 2024-04-03 09:24 | disposition home or self-care (01) ==
LOC: FBCO 01:00 → FBC 07:42
PROVIDERS: PCP Family Medicine; Visit Provider Obstetrics & Gynecology
DX: O26.893 Other specified pregnancy related conditions, third trimester (principal); Z86.32 Personal history of gestational diabetes; Z3A.35 35 weeks gestation of pregnancy
CPT/HCPCS: 76818

== ENCOUNTER 2024-04-09 08:12 | Outpatient (REF) | payer OTHER, SELFPAY ==
--- OUTSIDE RECORDS SUMMARY | 2024-04-10 07:39 | XMS_ITS | CCD ---
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 Role Phone HUBER LUNDBERG Attending Unavailable [...] Unavailable JAMES ., DR MCCLOUD Admitting Unavailable BEATTY, DR CARIDAD [employer] Unavailable JAMES ., [...] Attending Unavailable ANGELINA, EMILY G Referring Unavailable ANGLEINA, EMILY G Primary Care Unavailable ROB GONZALES [...] ROGERS Attending Unavailable JAMES, ROGERS Attending Unavailable ERWINIVETH [...] Orally Twice a day Active Continuous Glucose [employer] Linux Engineer (FreeStyle Adriana 2 Elmo) device (20 sources) Start: 11-15-2023 Continuous Glucose [employer] Linux Engineer (FreeStyle Adriana 2 Elmo) device Indications: History of gestational diabetes 1 [...] every week ergocalciferol (Vitamin D2) 1.25 MG (06030 UT) capsule Indications: Vitamin D deficiency Take [...] Start: 12-13-2023 End: 10-26-2024 Continuous Glucose Sensor [facility] Indications: Elevated glucose 1 Device every 14 [...] UA Negative Negative - 4(70) +++ mg/dL [facility] Blood, UA Negative Negative - 50 Andrew/mcL [facility] Clarity, UA Clear [facility] Color, UA Yellow [facility] Glucose, UA Negative Negative - 2000(110) ++++ mg/dL [facility] Interpretation and review of laboratory results Abnormal [facility] Ketones, UA Positive Negative - 160(16) ++++ mg/dL [facility] Comment on above: trace Leukocytes, UA Trace Negative - 500+++ Lore/mcL [facility] Nitrite, UA Negative Negative - Positive [facility] pH, UA 6.5 5 - 9 [facility] Protein, UA Positive Negative - 2000(20) ++++ mg/dL [facility] Comment on above: 30mg Spec Grav, UA 1.025 1 - 1.03 [facility] Urobilinogen, UA 1.0 0.2 - 12 mg/dL [facility] Urinalysis macro (dipstick) panel (U)on 03-10-2024 Bilirubin, UA Positive Negative - 4(70) +++ mg/dL [facility] Comment on above: small Blood, UA Negative Negative - 50 Andrew/mcL [facility] Clarity, UA Clear [facility] Color, UA Yellow [facility] Glucose, UA Negative Negative - 2000(110) ++++ mg/dL [facility] Interpretation and review of laboratory results Abnormal [facility] Ketones, UA Positive Negative - 160(16) ++++ mg/dL [facility] Comment on above: trace Leukocytes, UA Negative Negative - 500+++ Lore/mcL [facility] Nitrite, UA Negative Negative - Positive [facility] pH, UA 6 5 - 9 [facility] Protein, UA Positive Negative - 1999(20) ++++ mg/dL [facility] Comment on above: 30 Spec Grav, UA 1.025 1 - 1.03 [facility] Urobilinogen, UA 1.0 0.2 - 12 mg/dL [facility] MLR HEMOGLOBIN A1Con 024 Glucose [Mass/Vol] 114 mg/dL [facility] HbA1c (Bld) [Mass fraction] 5.6 % 4.5 - 6.2 % [facility] Comment on above: ADA RECOMMENDED LIMI T 4.0 - 6.0 ADA THERAPEUTIC TARGET < 7.0 ACTION SUGGESTED > 7.0 [facility] Urinalysis macro (dipstick) panel (U)on 02-20-2024 Bilirubin, UA Positive Negative - 4(70) +++ mg/dL [facility] Comment on above: small Blood, UA Negative Negative - 50 Andrew/mcL [facility] Clarity, UA Clear [facility] Color, UA Yellow [facility] Glucose, UA Negative Negative - 1999(110) ++++ mg/dL [facility] Interpretation and review of laboratory results Abnormal [facility] Ketones, UA Positive Negative - 160(16) ++++ mg/dL [facility] Comment on above: trace Leukocytes, UA Negative Negative - 500+++ Lore/mcL [facility] Nitrite, UA Negative Negative - Positive [facility] pH, UA 6 5 - 9 [facility] Protein, UA Trace Negative - 1999(20) ++++ mg/dL [facility] Spec Grav, UA 1.03 1 - 1.03 [facility] Urobilinogen, UA 1.0 0.2 - 12 mg/dL [facility] Urinalysis macro (dipstick) panel (U)on 01-10-2024 Bilirubin, UA Negative Negative - 4(70) +++ mg/dL [facility] Blood, UA Negative Negative - 50 Andrew/mcL [facility] Clarity, UA Clear [facility] Color, UA Yellow [facility] Glucose, UA Negative Negative - 2000(110) ++++ mg/dL [facility] Interpretation and review of laboratory results Normal [facility] Ketones, UA Negative Negative - 160(16) ++++ mg/dL [facility] Leukocytes, UA Negative Negative - 500+++ Lore/mcL [facility] Nitrite, UA Negative Negative - Positive [facility] pH, UA 5.5 5 - 9 [facility] Protein, UA Negative Negative - 1999(20) ++++ mg/dL [facility] Spec Grav, UA 1.02 1 - 1.03 [facility] Urobilinogen, UA 1.0 0.2 - 12 mg/dL [facility] URETHRITIS/DISCHARGE PLUS VA GINITIS (HTRX)on 12-14-2023 ATOPOBIUM VAGINAE 0.000 [facility] ATOPOBIUM VAGINAE Not detected [facility] BVAB 2,3 (BACTERIAL VAGINOSIS ASSOCIATED BACTERIA 2, 3); MOBILUNCUS SPP 26.743 Abnormal [facility] BVAB 2,3 (BACTERIAL VAGINOSIS ASSOCIATED BACTERIA 2, 3); MOBILUNCUS SPP Detected Abnormal [facility] TATYANA ALBICANS, PARAPSILOSIS, TROPICALIS 0.000 [facility] TATYANA ALBICANS, PARAPSILOSIS, TROPICALIS Not detected [facility] TATYANA GLABRATA 0.000 [facility] TATYANA GLABRATA Not detected [facility] TATYANA KRUSEI 0.000 [facility] TATYANA KRUSEI Not detected [facility] CHLAMYDIA TRACHOMATIS 0.000 [facility] CHLAMYDIA TRACHOMATIS Not detected [facility] GARDNERELLA VAGINALIS 0.000 [facility] GARDNERELLA VAGINALIS Not detected [facility] Interpretation and review of laboratory results Abnormal [facility] MEGASPHAERA (TYPES 1, 2) 0.000 [facility] MEGASPHAERA (TYPES 1, 2) Not detected [facility] MYCOPLASMA GENITALIUM 0.000 [facility] MYCOPLASMA GENITALIUM Not detected [facility] NEISSERIA GONORRHOEAE 0.000 [facility] NEISSERIA GONORRHOEAE Not detected [facility] TRICHOMONAS VAGINALIS 0.000 [facility] TRICHOMONAS VAGINALIS Not detected [facility] Urinalysis macro (dipstick) panel (U)on 12-13-2023 Bilirubin, UA Negative Negative - 4(70) +++ mg/dL [facility] Blood, UA Negative Negative - 50 Andrew/mcL [facility] Clarity, UA Clear [facility] Color, UA Yellow [facility] Glucose, UA Negative Negative - 1999(110) ++++ mg/dL [facility] Interpretation and review of laboratory results Abnormal [facility] Ketones, UA Positive Negative - 160(16) ++++ mg/dL [facility] Comment on above: trace Leukocytes, UA Negative Negative - 500+++ Lore/mcL [facility] Nitrite, UA Negative Negative - Positive [facility] pH, UA 6.5 5 - 9 [facility] Protein, UA Negative Negative - 1999(20) ++++ mg/dL [facility] Spec Grav, UA 1.025 1 - 1.03 [facility] Urobilinogen, UA 1.0 0.2 - 12 mg/dL [facility] Urinalysis macro (dipstick) panel (U)on 11-15-2023 Bilirubin, UA Negative Negative - 4(70) +++ mg/dL [facility] Blood, UA Negative Negative - 50 Andrew/mcL [facility] Clarity, UA Clear [facility] Color, UA Yellow [facility] Glucose, UA Negative Negative - 1999(110) ++++ mg/dL [facility] Interpretation and review of laboratory results Normal [facility] Ketones, UA Negative Negative - 160(16) ++++ mg/dL [facility] Leukocytes, UA Negative Negative - 500+++ Lore/mcL [facility] Nitrite, UA Negative Negative - Positive [facility] pH, UA 5.5 5 - 9 [facility] Protein, UA Negative Negative - 1999(20) ++++ mg/dL [facility] Spec Grav, UA 1.020 1 - 1.03 [facility] Urobilinogen, UA 1.0 0.2 - 12 mg/dL [facility] ALL CBC WITH AUTO DIFFon BASOPHILS ABSOLUTE AUTO 0.0 [facility] Basophils/100 WBC (Bld) 0.4 % 0.2 - 2.0 % [facility] Eosinophils/100 WBC (Bld) 3.0 % 0.9 - 7.0 % [facility] Erythrocyte distribution width (RBC) [Ratio] 16.1 % High 11.0 - 15.0 % [facility] Hematocrit (Bld) [Volume fraction] 36.3 % 36.0 - 48.0 % [facility] Hemoglobin (Bld) [Mass/Vol] 11.4 g/dL Low 12.0 - 16.0 g/dL [facility] IMMATURE GRANULOCYTES ABS AUTO 0.03 [facility] Immature granulocytes/100 WBC (Bld) 0.3 % 0.0 - 0.5 % [facility] Interpretation and review of laboratory results Abnormal [facility] LYMPHOCYTES ABSOLUTE AUTO 2.2 [facility] Lymphocytes/100 WBC (Bld) 23.6 % 20.5 - 60.0 % [facility] MCH (RBC) [Entitic mass] 26.0 pg Low 26.7 - 34.0 pg [facility] MCHC (RBC) [Mass/Vol] 31.4 g/dL 29.9 - 35.2 g/dL [facility] MCV (RBC) [Entitic vol] 82.9 fL 81.0 - 99.0 fL [facility] MONOCYTES ABSOLUTE AUTO 0.5 [facility] Monocytes/100 WBC (Bld) 5.1 % 1.7 - 12.0 % [facility] NEUTROPHILS ABSOLUTE AUTO 6.2 [facility] Neutrophils/100 WBC (Bld) 67.6 % 43.0 - 75.0 % [facility] Platelet mean volume (Bld) [Entitic vol] 11.0 fL 9.5 - 13.5 fL [facility] TBH EO # 0.3 [facility]H PLT 271 [facility] RBC 4.38 [facility] WBC 9.2 [facility] Cytology Cervical or vaginal smear or scraping studyon 03-08-2023 [facility] CHLAMYDIA/GONOCOCCUS JESE ( AB/URINE/PAPon 06-01-2022 Chlamydia trachomatis, JESE Negative Normal Negative [facility] Comment on above: Performed By: #### P TT, PT #### [facility] [address] [address] [address] Todd Moreno Neisseria gonorrhoeae, JESE Negative Normal Negative [facility] Comment on above: Performed By: #### P TT, PT #### [facility] [address] [place], [place] [address] Dr. Todd Moreno VAGINITIS/VAGINOSIS DNA PROB Shaheed 06-01-2022 Tatyana species Negative Normal Negative [facility] Comment on above: Performed By: #### P TT, PT #### [facility] [address] [place], [place] [address] Dr. Todd Moreno Gardnerella vaginalis Negative Normal Negative [facility] Comment on above: Performed By: #### P TT, PT #### [facility] [address] [place] [address] Dr. Todd Moreno Trichomonas vaginalis Negative Normal Negative [facility] Comment on above: Performed By: #### P TT, PT #### [facility] [address] [address] [address] Todd Moreno HEP B SURFACE ANTIGEN SCREEN on 03-22-2022 HBsAg Screen Negative Normal Negative [facility] Comment on above: Performed By: #### H BSANS #### [facility] [address] [place] [address] Dr. Todd Moreno HEPATITIS C VIRUS AB W/ REFL EX QUANTon 03-22-2022 HCV AB 0.1 s/co ratio Normal 0.0-0.9 [facility] Comment on above: Performed By: #### P TT, PT #### [facility] [address] [place] [address] Dr. Todd Moreno Interpretation: Comment Normal [facility] Comment on above: Result Comment: Nega tive Not infected with HCV, unless recent infection is suspected or other evidence exists to indicate HCV infection. Performed By: #### P TT, PT #### [facility] [address] [place] [address] Dr. Todd Moreno HIV 1 AND 2 WITH REFLEXon HIV Screen 4th Generation wRfx Non-Reactive Normal Non Reactive [facility] Comment on above: Result Comment: HIV Negative HIV-1/HIV-2 antibodies and HIV-1 p24 antigen were NOT detected. There is no laboratory evidence of HIV infection. Performed By: #### H IV12 #### [facility] [address] [place] [address] Dr. Todd Moreno RPR QUANTon 03-22-2022 Rapid Plasma Reagin, Quant Non-Reactive Normal NonRea<1:1 [facility] Comment on above: Result Comment: Plea se Note: This test does not meet current guidelines for screening and diagnosis of syphilis. This test is intended for following treatment response in patients being treated for syphilis infection. To screen for syphilis infection, a reflex cascade that includes both RPR and a treponema-specific assay should be utilized, such as Treponema pallidum (Syphilis) Screening [place] (853163) or Rapid Plasma Reagin (RPR) Test With Reflex to Quantitative RPR and Confirmatory Treponema pallidum Antibodies (003986). Performed By: #### R PRQ #### [facility] [address] [place] [address] Dr. Todd Moreno RUBELLA AB IGGon 03-22-2022 Rubella Antibodies, IgG 5.11 index Normal Immune >0.99 [facility] Comment on above: Result Comment: Non- immune <0.90 Equivocal 0.90 - 0.99 Immune >0.99 Performed By: #### R PRQ #### [facility] [address] [place] [address] Dr. Todd Moreno CBC AUTO DIFFon 03-20-2022 BASO # 0.0 103/ul Normal 0.0-0.1 [facility] Comment on above: Performed By: #### P TT, PT #### [facility] [address] [place] [address] Dr. Todd Moreno Basophils/100 WBC (Bld) 0.3 % Normal 0.2-2.0 [facility] Comment on above: Performed By: #### P TT, PT #### [facility] [address] [place] [address] Dr. Todd Moreno EO # 0.1 103/ul Normal 0.0-0.7 [facility] Comment on above: Performed By: #### P TT, PT #### [facility] [address] [place] [address] Dr. Todd Moreno Eosinophils/100 WBC (Bld) 1.0 % Normal 0.9-7.0 [facility] Comment on above: Performed By: #### P TT, PT #### [facility] [address] [place] [address] Dr. Todd Moreno Erythrocyte distribution width (RBC) [Ratio] 14.4 % Normal 11.0-15.0 [facility] Comment on above: Performed By: #### P TT, PT #### [facility] [address] [place] [address] Dr. Todd Moreno Hematocrit (Bld) [Volume fraction] 38.2 % Normal 36.0-48.0 [facility] Comment on above: Performed By: #### P TT, PT #### [facility] [address] [place] [address] Dr. Todd Moreno Hemoglobin (Bld) [Mass/Vol] 12.2 g/dL Normal 12.0-16.0 [facility] Comment on above: Performed By: #### P TT, PT #### [facility] [address] [place] [address] Dr. Todd Moreon IG # 0.03 10e3/ul Normal 0.00-0.03 [facility] Comment on above: Performed By: #### P TT, PT #### [facility] [address] [place] [address] Dr. Todd Moreno IG % 0.3 % Normal 0.0-0.5 [facility] Comment on above: Performed By: #### P TT, PT #### [facility] [address] [place] [address] Dr. Todd Moreno LYMPH # 1.9 103/ul Normal 1.2-3.8 [facility] Comment on above: Performed By: #### P TT, PT #### [facility] [address] [place] [address] Dr. Todd Moreno Lymphocytes/100 WBC (Bld) 19.0 % Critically low 20.5-60.0 [facility] Comment on above: Performed By: #### P TT, PT #### [facility] [address] [place] [address] Dr. Todd Moreno MANUAL DIFF REQ NO Normal [facility] Comment on above: Performed By: #### P TT, PT #### [facility] [address] [place] [address] Dr. Todd Moreno MCH (RBC) [Entitic mass] 26.1 pg Critically low 26.7-34.0 [facility] Comment on above: Performed By: #### P TT, PT #### [facility] [address] [place] [address] Dr. Todd Moreno MCHC (RBC) [Mass/Vol] 31.9 g/dL Normal 29.9-35.2 [facility] Comment on above: Performed By: #### P TT, PT #### [facility] [address] [address] [address] Todd Moreno MCV (RBC) [Entitic vol] 81.6 fL Normal 81.0-99.0 [facility] Comment on above: Performed By: #### P TT, PT #### [facility] [address] [address] [address] Todd Moreno MONO # 0.4 103/ul Normal 0.3-0.8 [facility] Comment on above: Performed By: #### P TT, PT #### [facility] [address] [place] [address] Dr. Todd Moreno Monocytes/100 WBC (Bld) 4.4 % Normal 1.7-12.0 [facility] Comment on above: Performed By: #### P TT, PT #### [facility] [address] [place] [address] Dr. Todd Moreno NEUT # 7.5 103/ul Critically high 1.4-6.5 [facility] Comment on above: Performed By: #### P TT, PT #### [facility] [address] [place] [address] Dr. Todd Moreno Neutrophils/100 WBC (Bld) 75.0 % Normal 43.0-75.0 [facility] Comment on above: Performed By: #### P TT, PT #### [facility] [address] [place] [address] Dr. Todd Moreno Platelet mean volume (Bld) [Entitic vol] 10.4 fL Normal 9.5-13.5 [facility] Comment on above: Performed By: #### P TT, PT #### [facility] [address] [place] [address] Dr. Todd Moreno PLT 302 103/ul Normal 150-450 [facility] Comment on above: Performed By: #### P TT, PT #### [facility] [address] [place] [address] Dr. Todd Moreno RBC 4.68 106/ul Normal 4.20-5.40 [facility] Comment on above: Performed By: #### P TT, PT #### [facility] [address] [place] [address] Dr. Todd Moreno WBC 10.1 103/ul Normal 4.0-11.0 [facility] Comment on above: Performed By: #### P TT, PT #### [facility] [address] [place] [address] Dr. Todd Moreno CULTURE URINEon 03-20-2022 CULTURE URINE Culture Observations : MODERATE GROWTH OF MIXED GENITAL LORA. NO POTENTIAL PATHOGENS SEEN. Normal [facility] Comment on above: Performed By: #### P TT, PT #### [facility] [address] [place] [address] Dr. Todd Moreno GLYCOHEMOGLOBIN A1Con 2022 ADA RECOMMENDATION SEE BELOW Normal [facility] Comment on above: Result Comment: ADA RECOMMENDED LIMIT 4.0 - 6.0 ADA THERAPEUTIC TARGET < 7.0 ACTION SUGGESTED > 7.0 Performed By: #### A 1C #### [facility] [address] [place] [address] Dr. Todd Moreno Glucose [Mass/Vol] 105 mg/dL Normal [facility] Comment on above: Performed By: #### A 1C #### [facility] [address] [place] [address] Dr. Todd Moreno HbA1c (Bld) [Mass fraction] 5.3 % Normal 4.5-6.2 [facility] Comment on above: Performed By: #### A 1C #### [facility] [address] [place] [address] Dr. Todd Moreno BENJAMIN BOX TEST PT SEND OUTo n 03-20-2022 SENT TO REF LAB 03/20/2022 Normal [facility] Comment on above: Performed By: #### P TT, PT #### [facility] [address] [place] [address] Dr. Todd Moreno TYPE AND SCREENon 03-20-2022 TYPE AND SCREEN Negative Normal [facility] Comment on above: Performed By: #### P TT, PT #### [facility] [address] [place], [place] [address] Dr. Todd Moreno US PREG TVon 02-24-2022 [...] CARIDAD DOBSON Date: 2022-02-24 16:16 Normal The [facility] CULTURE URINEon 02-03-2022 CULTURE URINE [...] F Oxacillin 0.5 S F Normal The [facility] Comment on above: Performed By: #### P TT, PT #### [facility] [address] [place], [place] [address] Dr. Todd Moreno US PREG TVon 02-01-2022 [...] ETHAN MERCER Date: 2022-01-31 22:05 Normal The [facility] CBC AUTO DIFFon 01-31-2022 BASO # 0.1 103/ul Normal 0.0-0.1 [facility] Comment on above: Performed By: #### P TT, PT #### [facility] [address] [address] [address] Todd Moreno Basophils/100 WBC (Bld) 0.8 % Normal 0.2-2.0 [facility] Comment on above: Performed By: #### P TT, PT #### [facility] [address] [address] [address] Todd Moreno EO # 0.5 103/ul Normal 0.0-0.7 [facility] Comment on above: Performed By: #### P TT, PT #### [facility] [address] [address] [address] Todd Moreno Eosinophils/100 WBC (Bld) 5.4 % Normal 0.9-7.0 [facility] [facility] Comment on above: Performed By: #### P TT, PT #### [facility] [address] [place] [address] Dr. Todd Moreno Erythrocyte distribution width (RBC) [Ratio] 15.0 % Normal 11.0-15.0 [facility] Comment on above: Performed By: #### P TT, PT #### [facility] [address] [place] [address] Dr. Todd Moreno Hematocrit (Bld) [Volume fraction] 34.3 % Critically low 36.0-48.0 [facility] Comment on above: Performed By: #### P TT, PT #### [facility] [address] [place] [address] Dr. Todd Moreno Hemoglobin (Bld) [Mass/Vol] 11.2 g/dL Critically low 12.0-16.0 [facility] Comment on above: Performed By: #### P TT, PT #### [facility] [address] [place] [address] Dr. Todd Moreno IG # 0.02 10e3/ul Normal 0.00-0.03 [facility] Comment on above: Performed By: #### P TT, PT #### [facility] [address] [place] [address] Dr. Todd Moreno IG % 0.2 % Normal 0.0-0.5 [facility] Comment on above: Performed By: #### P TT, PT #### [facility] [address] [place] [address] Dr. Todd Moreno LYMPH # 2.7 103/ul Normal 1.2-3.8 [facility] Comment on above: Performed By: #### P TT, PT #### [facility] [address] [place] [address] Dr. Todd Moreno Lymphocytes/100 WBC (Bld) 29.9 % Normal 20.5-60.0 [facility] Comment on above: Performed By: #### P TT, PT #### [facility] [address] [place] [address] Dr. Todd Moreno MANUAL DIFF REQ NO Normal [facility] Comment on above: Performed By: #### P TT, PT #### [facility] [address] [place] [address] Dr. Todd Moreno MCH (RBC) [Entitic mass] 26.7 pg Normal 26.7-34.0 [facility] Comment on above: Performed By: #### P TT, PT #### [facility] [address] [place] [address] Dr. Todd Moreno MCHC (RBC) [Mass/Vol] 32.7 g/dL Normal 29.9-35.2 [facility] Comment on above: Performed By: #### P TT, PT #### [facility] [address] [place] [address] Dr. Todd Moreno MCV (RBC) [Entitic vol] 81.7 fL Normal 81.0-99.0 [facility] Comment on above: Performed By: #### P TT, PT #### [facility] [address] [place] [address] Dr. Todd Moreno MONO # 0.5 103/ul Normal 0.3-0.8 [facility] Comment on above: Performed By: #### P TT, PT #### [facility] [address] [place] [address] Dr. Todd Moreno Monocytes/100 WBC (Bld) 5.7 % Normal 1.7-12.0 [facility] Comment on above: Performed By: #### P TT, PT #### [facility] [address] [place] [address] Dr. Todd Moreno NEUT # 5.2 103/ul Normal 1.4-6.5 The [facility] Comment on above: Performed By: #### P TT, PT #### [facility] [address] [place] [address] Dr. Todd Moreno Neutrophils/100 WBC (Bld) 58.0 % Normal 43.0-75.0 [facility] Comment on above: Performed By: #### P TT, PT #### [facility] [address] [place] [address] Dr. Todd Moreno Platelet mean volume (Bld) [Entitic vol] 10.4 fL Normal 9.5-13.5 [facility] Comment on above: Performed By: #### P TT, PT #### [facility] [address] [place] [address] Dr. Todd Moreno PLT 270 103/ul Normal 150-450 [facility] Comment on above: Performed By: #### P TT, PT #### [facility] [address] [place] [address] Dr. Todd Moreno RBC 4.20 106/ul Normal 4.20-5.40 [facility] Comment on above: Performed By: #### P TT, PT #### [facility] [address] [place] [address] Dr. Todd Moreno WBC 9.1 103/ul Normal 4.0-11.0 [facility] Comment on above: Performed By: #### P TT, PT #### [facility] [address] [place] [address] Dr. Todd Moreno ER URINE PROFILEon 2 Bilirubin Ql (U) Negative Normal NEGATIVE [facility] Comment on above: Performed By: #### P TT, PT #### [facility] [address] [place] [address] Dr. Todd Moreno Clarity (U) CLEAR Normal CLEAR [facility] Comment on above: Performed By: #### P TT, PT #### [facility] [address] [place] [address] Dr. Todd Moreno Color (U) YELLOW Normal YELLOW The [facility] Comment on above: Performed By: #### P TT, PT #### [facility] [address] [place] [address] Dr. Todd Moreno ERUAHD A micrscopic examination will be performed if indicated. Normal The [facility] Comment on above: Performed By: #### P TT, PT #### [facility] [address] [place] [address] Dr. Todd Moreno Glucose Ql (U) Negative Normal NEGATIVE [facility] Comment on above: Performed By: #### P TT, PT #### [facility] [address] [place] [address] Dr. Todd Moreno Hemoglobin Ql (U) TRACE-INTACT Abnormal NEGATIVE [facility] Comment on above: Performed By: #### P TT, PT #### [facility] [address] [place] [address] Dr. Todd Moreno Ketones Ql (U) Negative Normal NEGATIVE [facility] Comment on above: Performed By: #### P TT, PT #### [facility] [address] [place] [address] Dr. Todd Moreno LEUKOCYTES SMALL Abnormal NEGATIVE [facility] Comment on above: Performed By: #### P TT, PT #### [facility] [address] [place] [address] Dr. Todd Moreno Nitrite Ql (U) Negative Normal NEGATIVE [facility] Comment on above: Performed By: #### P TT, PT #### [facility] [address] [place] [address] Dr. Todd Moreno pH (U) 6.5 [pH] Normal 5-9 [facility] Comment on above: Performed By: #### P TT, PT #### [facility] [address] [place] [address] Dr. Todd Moreno SPEC GRAVITY 1.015 Normal 1.005-<=1.025 [facility] Comment on above: Performed By: #### P TT, PT #### [facility] [address] [place] [address] Dr. Todd Moreno UA PROTEIN Negative Normal NEGATIVE/ TRACE The [facility] Comment on above: Performed By: #### P TT, PT #### [facility] [address] [place] [address] Dr. Todd Moreno UR MICRO IND INDICATED Normal [facility] Comment on above: Performed By: #### P TT, PT #### [facility] [address] [place] [address] Dr. Todd Moreno Urobilinogen Qn (U) 0.2 {Tiffany'U}/dL Normal 0.2 - 1. 0 [facility] Comment on above: Performed By: #### P TT, PT #### [facility] [address] [place] [address] Dr. Todd Moreno LIPASEon 01-31-2022 Lipase [Catalytic activity/Vol] 123.0 U/L Normal 73.0-393.0 [facility] Comment on above: Performed By: #### C MP, LIPA #### [facility] [address] [place] [address] Dr. Todd Moreno PREG QUANT HCGon 01-31-2022 HCG QUANT 711 mIU/mL Normal [facility] Comment on above: Performed By: #### P TT, PT #### [facility] [address] [place] [address] Dr. Todd Moreno HCG RANGE SEE BELOW Normal [facility] Comment on above: Result Comment: 5-50 0.2-1 WEEK 50-500 1-2 WEEKS 100-5,000 2-3 WEEKS 500-10,000 3-4 WEEKS 1,000-50,000 4-5 WEEKS 10,000-100,000 5-6 WEEKS 15,000-200,000 6-8 WEEKS 10,000-100,000 2-3 MONTHS Performed By: #### P TT, PT #### [facility] [address] [place] [address] Dr. Todd Moreno PROF 14(COMP METB)on 022 Albumin [Mass/Vol] 3.7 g/dL Normal 3.4-5.0 [facility] Comment on above: Performed By: #### C MP, LIPA #### [facility] [address] [place] [address] Dr. Todd Moreno Albumin/Globulin [Mass ratio] 1.0 {ratio} Normal [facility] Comment on above: Performed By: #### C MP, LIPA #### [facility] [address] [place] [address] Dr. Todd Moreno ALP [Catalytic activity/Vol] 80 U/L Normal 46-116 [facility] Comment on above: Performed By: #### C MP, LIPA #### [facility] [address] [place] [address] Dr. Todd Moreno ALT [Catalytic activity/Vol] 23 U/L Normal 14-59 [facility] Comment on above: Performed By: #### C MP, LIPA #### [facility] [address] [place] [address] Dr. Todd Moreno Anion gap [Moles/Vol] 10.2 mmol/L Normal [facility] Comment on above: Performed By: #### C MP, LIPA #### [facility] [address] [place] [address] Dr. Todd Moreno AST [Catalytic activity/Vol] 14 U/L Critically low 15-37 [facility] Comment on above: Performed By: #### C MP, LIPA #### [facility] [address] [place] [address] Dr. Todd Moreno Bilirubin [Mass/Vol] 0.3 mg/dL Normal 0.2-1.0 [facility] Comment on above: Performed By: #### C MP, LIPA #### [facility] [address] [place] [address] Dr. Todd Moreno Calcium [Mass/Vol] 9.1 mg/dL Normal 8.5-10.1 [facility] Comment on above: Performed By: #### C MP, LIPA #### [facility] [address] [place] [address] Dr. Todd Moreno Chloride [Moles/Vol] 104 mmol/L Normal 98-107 [facility] Comment on above: Performed By: #### C MP, LIPA #### [facility] [address] [place] [address] Dr. Todd Moreno CO2 [Moles/Vol] 26.8 mmol/L Normal 21.0-32.0 [facility] Comment on above: Performed By: #### C MP, LIPA #### [facility] [address] [place] [address] Dr. Todd Moreno Creatinine [Mass/Vol] 0.87 mg/dL Normal 0.55-1.02 [facility] Comment on above: Performed By: #### C MP, LIPA #### [facility] [address] [place] [address] Dr. Todd Moreno EGFR-AF LATVIAN >60 Normal >=60 [facility] Comment on above: Performed By: #### C MP, LIPA #### [facility] [address] [place] [address] Dr. Todd Moreno EGFR-NON AF LATVIAN >60 Normal >=60 [facility] Comment on above: Performed By: #### C MP, LIPA #### [facility] [address] [place] [address] Dr. Todd Moreno Globulin (S) [Mass/Vol] 3.7 g/dL Normal [facility] Comment on above: Performed By: #### C MP, LIPA #### [facility] [address] [place] [address] Dr. Todd Moreno Glucose [Mass/Vol] 98 mg/dL Normal 74-106 [facility] Comment on above: Performed By: #### C MP, LIPA #### [facility] [address] [place] [address] Dr. Todd Moreno Potassium [Moles/Vol] 4.0 mmol/L Normal 3.5-5.1 [facility] Comment on above: Performed By: #### C MP, LIPA #### [facility] [address] [place] [address] Dr. Todd Moreno Protein [Mass/Vol] 7.4 g/dL Normal 6.4-8.2 [facility] Comment on above: Performed By: #### C MP, LIPA #### [facility] [address] [place] [address] Dr. Todd Moreno Sodium [Moles/Vol] 137 mmol/L Normal 136-145 [facility] Comment on above: Performed By: #### C MP, LIPA #### [facility] [address] [place] [address] Dr. Todd Moreno Urea nitrogen [Mass/Vol] 15.0 mg/dL Normal 7.0-18.0 [facility] Comment on above: Performed By: #### C MP, LIPA #### [facility] [address] [place] [address] Dr. Todd Moreno Urea nitrogen/Creatinine [Mass ratio] 17.2 mg/mg Normal The [facility] Comment on above: Performed By: #### C MP, LIPA #### [facility] [address] [place] [address] Dr. Todd Moreno URINE MICROSCOPIC ONLYon BACTERIA SMALL Abnormal NONE SEEN The [facility] Comment on above: Performed By: #### P TT, PT #### [facility] [address] [place] [address] Dr. Todd Moreno Bacteria identified Cx Nom (U) INDICATED Normal [facility] Comment on above: Performed By: #### P TT, PT #### [facility] [address] [place] [address] Dr. Todd Moreno CAST NONE SEEN Normal NONE SEEN The [facility] Comment on above: Performed By: #### P TT, PT #### [facility] [address] [place] [address] Dr. Todd Moreno Crystals LM Nom (Urine sed) NONE SEEN Normal NONE SEEN The [facility] Comment on above: Performed By: #### P TT, PT #### [facility] [address] [place] [address] Dr. Todd Moreno Epithelial cells LM Ql (Urine sed) FEW Abnormal NONE SEEN /RARE The [facility] Comment on above: Performed By: #### P TT, PT #### [facility] [address] [place] [address] Dr. Todd Moreno MUCOUS NONE SEEN Normal NONE SEEN The [facility] Comment on above: Performed By: #### P TT, PT #### [facility] [address] [place] [address] Dr. Todd Moreno RBC 0-2 Normal 0-2 The [facility] Comment on above: Performed By: #### P TT, PT #### [facility] [address] [place] [address] Dr. Todd Moreno WBC 10-20 Abnormal NONE SEEN The [facility] Comment on above: Performed By: #### P TT, PT #### [facility] [address] [place] [address] Dr. Todd Moreno ESTROGENon 10-20-2021 Estrogens, Total 68 pg/mL Normal [facility] Comment on above: Result Comment: Prep ubertal < 40 Female Cycle: 1-10 Days 16 - 328 11-20 Days 34 - 501 21-30 Days 48 - 350 Post-Menopausal 40 - 244 Performed By: #### P TT, PT #### [facility] [address] [address] [address] Todd Moreno ESTRADIOLon 10-16-2021 Estradiol 62.1 pg/mL Normal [facility] Comment on above: Result Comment: Adul t Female: Follicular phase 12.5 - 166.0 Ovulation phase 85.8 - 498.0 Luteal phase 43.8 - 211.0 Postmenopausal <6.0 - 54.7 1st trimester 215.0 - >4300.0 Ramos ECLIA methodology Performed By: #### E STRADI #### [facility] [address] [address] [address] Todd Moreno FSHon 10-16-2021 FSH 5.6 mIU/mL Normal [facility] Comment on above: Result Comment: Adul t Female: Follicular phase 3.5 - 12.5 Ovulation phase 4.7 - 21.5 Luteal phase 1.7 - 7.7 Postmenopausal 25.8 - 134.8 Performed By: #### P TT, PT #### [facility] [address] [address] [address] Todd Moreno LUTEINIZING HORMONE (LH)on 0 10-16-2021 LH 12.1 mIU/mL Normal [facility] Comment on above: Result Comment: Adul t Female: Follicular phase 2.4 - 12.6 Ovulation phase 14.0 - 95.6 Luteal phase 1.0 - 11.4 Postmenopausal 7.7 - 58.5 Performed By: #### P TT, PT #### [facility] [address] [address] [address] Todd Moreno CBC AUTO DIFFon 10-15-2021 BASO # 0.0 103/ul Normal 0.0-0.1 [facility] Comment on above: Performed By: #### P TT, PT #### [facility] [address] [place] [address] Dr. Todd Moreno Basophils/100 WBC (Bld) 0.6 % Normal 0.2-2.0 The [facility] Comment on above: Performed By: #### P TT, PT #### [facility] [address] [place] [address] Dr. Todd Moreno EO # 0.1 103/ul Normal 0.0-0.7 The [facility] Comment on above: Performed By: #### P TT, PT #### [facility] [address] [place] [address] Dr. Todd Moreno Eosinophils/100 WBC (Bld) 2.1 % Normal 0.9-7.0 [facility] Comment on above: Performed By: #### P TT, PT #### [facility] [address] [place] [address] Dr. Todd Moreno Erythrocyte distribution width (RBC) [Ratio] 14.0 % Normal 11.0-15.0 [facility] Comment on above: Performed By: #### P TT, PT #### [facility] [address] [place] [address] Dr. Todd Moreno Hematocrit (Bld) [Volume fraction] 37.0 % Normal 36.0-48.0 [facility] Comment on above: Performed By: #### P TT, PT #### [facility] [address] [place] [address] Dr. Todd Moreno Hemoglobin (Bld) [Mass/Vol] 11.6 g/dL Critically low 12.0-16.0 [facility] Comment on above: Performed By: #### P TT, PT #### [facility] [address] [place] [address] Dr. Todd Moreno IG # 0.01 10e3/ul Normal 0.00-0.03 The [facility] Comment on above: Performed By: #### P TT, PT #### [facility] [address] [place] [address] Dr. Todd Moreno IG % 0.2 % Normal 0.0-0.5 [facility] Comment on above: Performed By: #### P TT, PT #### [facility] [address] [place] [address] Dr. Todd Moreno LYMPH # 2.2 103/ul Normal 1.2-3.8 The [facility] Comment on above: Performed By: #### P TT, PT #### [facility] [address] [place] [address] Dr. Todd Moreno Lymphocytes/100 WBC (Bld) 33.1 % Normal 20.5-60.0 [facility] Comment on above: Performed By: #### P TT, PT #### [facility] [address] [place] [address] Dr. Todd Moreno MANUAL DIFF REQ NO Normal [facility] Comment on above: Performed By: #### P TT, PT #### [facility] [address] [place] [address] Dr. Todd Moreno MCH (RBC) [Entitic mass] 26.3 pg Critically low 26.7-34.0 [facility] Comment on above: Performed By: #### P TT, PT #### [facility] [address] [place] [address] Dr. Todd Moreno MCHC (RBC) [Mass/Vol] 31.4 g/dL Normal 29.9-35.2 [facility] Comment on above: Performed By: #### P TT, PT #### [facility] [address] [place] [address] Dr. Todd Moreno MCV (RBC) [Entitic vol] 83.9 fL Normal 81.0-99.0 [facility] Comment on above: Performed By: #### P TT, PT #### [facility] [address] [place] [address] Dr. Todd Moreno MONO # 0.2 103/ul Critically low 0.3-0.8 [facility] Comment on above: Performed By: #### P TT, PT #### [facility] [address] [place] [address] Dr. Todd Moreno Monocytes/100 WBC (Bld) 3.5 % Normal 1.7-12.0 [facility] Comment on above: Performed By: #### P TT, PT #### [facility] [address] [address] [address] Todd Moreno NEUT # 4.0 103/ul Normal 1.4-6.5 [facility] Comment on above: Performed By: #### P TT, PT #### [facility] [address] [address] [address] Todd Moreno Neutrophils/100 WBC (Bld) 60.5 % Normal 43.0-75.0 [facility] Comment on above: Performed By: #### P TT, PT #### [facility] [address] [address] [address] Todd Moreno Platelet mean volume (Bld) [Entitic vol] 10.6 fL Normal 9.5-13.5 [facility] Comment on above: Performed By: #### P TT, PT #### [facility] [address] [place] [address] Dr. Todd Moreno PLT 263 103/ul Normal 150-450 [facility] Comment on above: Performed By: #### P TT, PT #### [facility] [address] [place] [address] Dr. Todd Moreno RBC 4.41 106/ul Normal 4.20-5.40 [facility] Comment on above: Performed By: #### P TT, PT #### [facility] [address] [address] [address] Todd Moreno WBC 6.6 103/ul Normal 4.0-11.0 [facility] Comment on above: Performed By: #### P TT, PT #### [facility] [address] [place] [address] Dr. Todd Moreno FREE T4on 10-15-2021 Free T4 [Mass/Vol] 1.05 ng/dL Normal 0.76-1.46 [facility] Comment on above: Performed By: #### P TT, PT #### [facility] [address] [address] [address] Todd Moreno PROTIMEon 10-15-2021 INR Coag (PPP) [Relative time] 1.02 {INR} Normal [facility] Comment on above: Performed By: #### P TT, PT #### [facility] [address] [place] [address] Dr. Todd Moreno INR GUIDELINES SEE BELOW Normal [facility] Comment on above: Result Comment: RAMÓN RED INR: 2.0 - 3.0 CONDITIONS NOT LISTED BELOW 2.5 - 3.5 FOR PROSTHETIC HEART VALVE REPLACEMENT 2.5 - 3.5 RECURRENT THROMBOSIS Performed By: #### P TT, PT #### [facility] [address] [place] [address] Dr. Todd Moreno PT Coag (PPP) [Time] 11.0 s Normal 9.0-11.6 [facility] Comment on above: Performed By: #### P TT, PT #### [facility] [address] [place] [address] Dr. Todd Moreno PTTon 10-15-2021 aPTT Coag (Bld) [Time] 32.4 s Normal 22.3-36.2 [facility] Comment on above: Performed By: #### P TT, PT #### [facility] [address] [place] [address] Dr. Todd Moreno TSHon 10-15-2021 TSH 1.777 uIU/mL Normal 0.358-3.740 [facility] Comment on above: Performed By: #### P TT, PT #### The [facility] [address] [place] [address] Dr. Todd Moreno PAP ACOG PANEL 2: 30 to 65on 10-10-2021 . . Normal [facility] Comment on above: Result Comment: Perf ormed at: WB Performed By: #### [id number] #### [facility] [address] [place] [address] Dr. Todd Moreno Age Gdln ACOG Testing - [facility] Comment on above: Performed By: #### [id number] #### [facility] [address] [place] [address] Dr. Todd Moreno DIAGNOSIS: Comment Normal [facility] Comment on above: Result Comment: NEGA TIVE FOR INTRAEPITHELIAL LESION OR MALIGNANCY. Performed at: WB Performed By: #### [id number] #### [facility] [address] [place] [address] Dr. Todd Moreno HPV Aptima Negative Normal Negative [facility] Comment on above: Result Comment: This nucleic acid amplification test detects fourteen high-risk HPV types (16,18,31,33,35,39,45,51,52,56,58,59,66,68) without differentiation. Performed at: =G Performed By: #### [id number] #### [facility] [address] [place] [address] Dr. Todd Moreno Methodology: Comment Normal [facility] Comment on above: Result Comment: This liquid based ThinPrep(R) pap test was screened with the use of an image guided system. Performed at: WB Performed By: #### [id number] #### [facility] [address] [place] [address] Dr. Todd Moreno Note: Comment Normal [facility] Comment on above: Result Comment: The Pap smear is a screening test designed to aid in the detection of premalignant and malignant conditions of the uterine cervix. It is not a diagnostic procedure and should not be used as the sole means of detecting cervical cancer. Both false-positive and false-negative reports do occur. . Performed at: WB Performed By: #### [id number] #### [facility] [address] [place] [address] Dr. Todd Moreno Performed by: Comment Normal [facility] Comment on above: Result Comment: Magalie Lemus, Merry Go Round Attendant (ASCP) Performed at: WB Performed By: #### [id number] #### [facility] [address] [place] [address] Dr. Todd Moreno Specimen adequacy: Comment Normal [facility] Comment on above: Result Comment: Sati sfactory for evaluation. Endocervical and/or squamous metaplastic cells (endocervical component) are present. Performed at: WB Performed By: #### [id number] #### [facility] [address] [place] [address] Dr. Todd Moreno COVID-19 Antigenon 2 COVID-19 [...] its performance Corinne Disclaimer characteristic determined by [employer] and Corinne Disclaimer validated at [facility]. This Corinne Disclaimer test has not been [...] is terminated or revoked sooner. PERFORMED BY: [place] [address] PATHOLOGIST MANAGER SAP JONATHAN SHEPARD M.D. [facility] Comment on above: Performed By: #### S OFIANEG, COVID-19 CORINNE #### [facility] [address] [place] [address] HCG,Urineon 03-30-2021 Beta HCG ( test) Ql (U) Negative [facility] Comment on above: Result Comment: PERF ORMED BY: [place] [address] PATHOLOGIST MANAGER SAP JONATHAN SHEPARD M.D. Performed By: #### U HCG #### [facility] [address] [place] [address] Corinne Ag Negativeon 03-30-19 Corinne Ag Negative Negative Normal Negative [facility] Comment on above: Result Comment: This is a duplicate Corinne SARS Antigen (KAEL) result to be used for statistical tracking purpose only. PERFORMED BY: [place] [address] PATHOLOGIST MANAGER SAP JONATHAN SHEPARD M.D. Performed By: #### S OFNERIS, COVID-19 CORINNE #### [address] [facility] SARS-CoV-2 (COVID-19) RNA JESE+probe Ql (Unsp spec) Negative Normal Negative [facility] Comment on above: Order Comment: Healt hcare Worker?: N Result Comment: Testing for SARS-CoV-2 by RT-PCR This test was developed and its performance characteristics determined by [employer] ([employer]) and validated at the [facility]. This test has not been FDA cleared [...] is terminated or revoked sooner. PERFORMED BY: [place] [address] PATHOLOGIST MANAGER SAP JONATHAN SHEPARD M.D. Performed By: #### C OVID 19 [facility] #### [place] [id number] [facility] XR elbow LT 2Von 03-01-2021 XR elbow LT 2V [facility] [place] [address] [place] [address] XRay Report Signed Patient: Moira Almaguer MR#: [id number] : 1985 Acct:[id number] Age/Sex: 35 / F ADM Date: 03/01/21 [...] Valdez Mcwilliams M.D.03/01/2021 1:47 PM Dictation Location: [place] [address] Transcribed By: [facility] 03/01/21 1347 Dictated By: Valdez Mcwilliams DO 03/01/21 1344 Signed By: 03/01/21 1347 [facility] XR FOREARM LEFT 2 VIEWSon XR [...] are recommended in 7 to 10 days. [facility]/[employer] Workstation ID: [id number] Dictated by: MAR DAWSON on SunSep 08, 2020 11:41:42 PM EDT Transcribed by: SHERRILL SMYTH on SunSep 09, 2020 12:10:05 AM EDT Finalized by: MAR DAWSON on SunSep 09, 2020 12:16:26 AM EDT [facility] Comment on above: Order Comment: [...] on SunSep 08, 2020 11:42:00 PM EDT [facility] Comment on above: Order Comment: [...] [Ratio] 35.71 kg/m2 Iveth MCGRATH Work Phone: [facility] 03-25-2024 14:23-0500 Body weight 103.42 kg Iveth MCGRATH Work Phone: [facility] 03-25-2024 14:23-0500 Diastolic blood pressure 70 mm[Hg] Iveth Portage PA Work Phone: [facility] 03-25-2024 14:23-0500 Systolic blood pressure 108 mm[Hg] Iveth Hood PA Work Phone: [facility] 02-20-2024 11:40-0500 Body mass index (BMI) [Ratio] 34.68 kg/m2 Rogers James DO Work Phone: [facility] 02-20-2024 11:40-0500 Body weight 100.43 kg Rogers James DO Work Phone: [facility] 02-20-2024 11:40-0500 Diastolic blood pressure 70 mm[Hg] Rogers James DO Work Phone: [facility] 02-20-2024 11:40-0500 Systolic blood pressure 120 mm[Hg] Rogers James DO Work Phone: [facility] 02-07-2024 11:42-0500 Body mass index (BMI) [Ratio] 34.3 kg/m2 Iveth MCGRATH Work Phone: [facility] 02-07-2024 11:42-0500 Body weight 99.34 kg Iveth MCGRATH Work Phone: [facility] 02-07-2024 11:42-0500 Diastolic blood pressure 70 mm[Hg] Iveth MCGRATH Work Phone: [facility] 02-07-2024 11:42-0500 Systolic blood pressure 118 mm[Hg] Iveth MCGRATH Work Phone: [facility] 01-10-2024 10:44-0400 Body mass index (BMI) [Ratio] 33.89 kg/m2 Rogers James DO Work Phone: [facility] 01-10-2024 10:44-0400 Body weight 98.16 kg Rogers James DO Work Phone: [facility] 01-10-2024 10:44-0400 Diastolic blood pressure 74 mm[Hg] Rogers James DO Work Phone: [facility] 01-10-2024 10:44-0400 Systolic blood pressure 120 mm[Hg] Rogers James DO Work Phone: [facility] 12-13-2023 10:51-0400 Body mass index (BMI) [Ratio] 33.33 kg/m2 Rogers James DO Work Phone: [facility] 12-13-2023 10:51-0400 Body weight 96.53 kg Rogers James DO Work Phone: [facility] 12-13-2023 10:51-0400 Diastolic blood pressure 80 mm[Hg] Rogers James DO Work Phone: [facility] 12-13-2023 10:51-0400 Systolic blood pressure 126 mm[Hg] Rogers James DO Work Phone: [facility] 11-15-2023 10:14-0400 Body mass index (BMI) [Ratio] 33.11 kg/m2 Rogers James DO Work Phone: [facility] 11-15-2023 10:14-0400 Body weight 95.89 kg Rogers James DO Work Phone: [facility] 11-15-2023 10:14-0400 Diastolic blood pressure 78 mm[Hg] Rogers James DO Work Phone: [facility] 11-15-2023 10:14-0400 Systolic blood pressure 118 mm[Hg] Rogers James DO Work Phone: [facility] 03-01-2021 11:00-0500 Body height 170.18 cm Leandro Olexa Other [employer] Other 03-01-2021 11:00-0500 Body mass index (BMI) [Ratio] 30.07 kg/m2 Leandro Olexa Other [employer] Other 03-01-2021 11:00-0500 Body weight 87.09 kg Leandro Olexa Other [employer] Other Encounters Encounter Date Encounter Type Care [...] Start: 02-04-2024 End: 02-04-2024 ambulatory ROB [facility] Start: 01-30-2024 End: 01-30-2024 ambulatory SRIDEVI FREITAS [facility] Start: 01-23-2024 End: 01-23-2024 Telephone encounter Emily Alfaro DO Work Phone: [facility] Start: 01-10-2024 End: 01-10-2024 Bamboo flowsheet Rogers James DO Work Phone: [facility] Start: 01-10-2024 End: 01-10-2024 Bamboo flowsheet Rogers James DO Work Phone: [facility] Start: 01-10-2024 End: 01-10-2024 flow sheet Rogers James DO Work Phone: [facility] Comment on above: Second trimester pre gnancy; 23 weeks gestation of Start: 01-10-2024 End: 01-10-2024 ambulatory ROGERS JAMES Not Available Start: 01-07-2024 End: 01-07-2024 ambulatory ROB GONZALES [facility] Start: 12-24-2023 End: 12-24-2023 ambulatory SRIDEVI FREITAS [facility] Start: 12-13-2023 End: 12-13-2023 Bamboo flowsheet Rogers James DO Work Phone: [facility] Start: 12-13-2023 End: 12-14-2023 Bamboo flowsheet Rogers James DO Work Phone: [facility] Start: 12-13-2023 End: 12-14-2023 External Result Encounter Rogers James DO Work Phone: [facility] External Department Unsolicited Start: 12-13-2023 End: 12-13-2023 ambulatory ROGERS JAMES Not Available Start: 12-13-2023 End: 12-13-2023 flow sheet Rogers James DO Work Phone: [facility] Comment on above: 19 weeks gestation o f ; Exposure to STD; Vaginal discharge; Elevated glucose Start: 11-15-2023 End: 11-15-2023 Bamboo flowsheet Rogers James DO Work Phone: [facility] Start: 11-15-2023 End: 11-15-2023 Bamboo flowsheet Rogers James DO Work Phone: [facility] Start: 11-15-2023 End: 11-15-2023 ambulatory ROGERS JAMES Not Available Start: 11-15-2023 End: 11-15-2023 flow sheet Rogers James DO Work Phone: [facility] Comment on above: Second [...] 03-01-2021 End: 03-01-2021 ambulatory Leandro Robles Other [employer] Other Start: 03-01-2021 Encounter for other preprocedural examination Leandro Robles [facility] Start: 03-01-2021 Office outpatient ne w 45 minutes Leandro Robles [facility] Start: 09-09-2020 End: 09-09-2020 Emergency department patient visit HUBER PIPER [facility] Procedures Date Procedure Procedure Detail Performing [...] Screening for malign ant neoplasm of cervix [facility] Healthcare Start: 10-05-2026 Screening for malign ant neoplasm of cervix [facility] Start: 04-09-2024 End: 04-09-2024 Patient encounter procedure 04/09/2024 1:30 PM EST Routine [facility] [address] [phone] Rogers Ramirez, DO [address] [place] [address] [facility] Start: 03-24-2024 End: 03-24-2024 Patient encounter procedure 03/24/2024 11:20 AM EST Routine [facility] [address] [place], [place] [address] [phone] Iveth Hood PA [address] [place] [address] [facility] Start: 03-10-2024 End: 03-10-2025 [...] 9:30 AM EST Routine [facility] [address] [place] [address] [place] [phone] Rogers Ramirez, DO [address] [place] [address] [facility] Start: 02-20-2024 End: 02-19-2025 CBC panel - Blood by Automated count CBC Lab Routine Diabetes mellitus screening Expected: 02/20/2024 (Approximate), Expires: 02/19/2025 [facility] Work Phone: Comment on above: Expected: 02/20/2024 (Approximate), Expires: 02/19/2025 Start: 02-20-2024 End: 02-20-2024 Patient encounter procedure 02/20/2024 11:00 AM EST Routine [facility] [address] [place] [phone] Rogers Ramirez DO [address] [address] [facility] Start: 02-07-2024 End: 02-06-2025 US for US OB SCAN FOR GROWTH Imaging Routine size consistent with dates during in second trimester Expected: 02/07/2024 (Approximate), Expires: 02/06/2025 [facility] Work Phone: Comment on above: Expected: 02/07/2024 (Approximate), Expires: 02/06/2025 Start: 02-07-2024 End: 02-07-2024 Patient encounter procedure 02/07/2024 11:20 AM EST Routine [facility] [address] [facility] [place] [phone] Iveth Hood PA [address] [place] [address] [facility] Start: 01-10-2024 End: 01-10-2024 Patient encounter procedure [facility] Comment on above: Arrived Start: 12-17-2023 End: 12-17-2023 Professional / ancillary services management 12/17/2023 8:00 AM EDT Ancillary Procedure [facility] [address] [facility] [place] [phone] [facility] Start: 12-13-2023 End: 01-12-2024 Alpha fetoprotein, maternal Alpha fetoprotein, maternal Lab Routine 19 weeks gestation of Expected: 12/13/2023 (Approximate), Expires: 01/12/2024 [facility] Comment on above: Expected: 12/13/2023 (Approximate), Expires: 01/12/2024 Start: 12-13-2023 End: 12-13-2023 Patient encounter procedure 12/13/2023 10:10 AM EDT Routine [facility] [address] [place] [phone] Rogers Ramirez, DO [address] [place] [address] [facility] Start: 11-18-2023 Influenza vaccination Influenza Vacc ine (#1) [facility] Start: 11-15-2023 End: 11-14-2024 Measurement of glucose 1 hour after glucose challenge for glucose tolerance test Glucose tolerance, 1 hour Lab Routine Diabetes mellitus screening Expected: 11/15/2023 (Approximate), Expires: 11/14/2024 [facility] Work Phone: Comment on above: Expected: 11/15/2023 (Approximate), Expires: 11/14/2024 Start: 11-15-2023 End: 11-14-2024 US for US OB ANATOMY SINGLE W US OB CERVICAL LENGTH Imaging Routine Second trimester History of gestational diabetes Screening, , for anatomic survey Expected: 11/15/2023 (Approximate), Expires: 11/14/2024 [facility] Comment on above: Expected: 11/15/2023 (Approximate), Expires: 11/14/2024 Start: 11-15-2023 End: 11-15-2023 Patient encounter procedure 11/15/2023 9:[address] [facility] [address] [place] [phone] Rogers Ramirez, DO [address] [place] [address] [facility] CHLAMYDIA TRACHOMATI S (GENITO/STI) CHLAMYDIA TRACHOMATIS (GENITO/STI) Lab Routine Exposure to STD Ordered: 12/13/2023 [facility] Comment on above: Ordered: 12/13/2023 Hemoglobin A1c/Hemoglobin.total in Blood Hemoglobin A1c Lab Routine Diabetes mellitus screening Ordered: 02/20/2024 [facility] Comment on above: Ordered: 02/20/2024 Neisseria gonorrhoea e DNA [Presence] in Unspecified specimen by JESE with probe detection Neisseria gonorrhea DNA probe, direct Lab Routine Exposure to STD Ordered: 12/13/2023 [facility] Comment on above: Ordered: 12/13/2023 SURESWAB(R) ADVANCED VAGINITIS PLUS, TMA SURESWAB(R) ADVANCED VAGINITIS PLUS, TMA Pathology and Cytology Routine Vaginal discharge Ordered: 12/13/2023 [facility] Healthcare Work Phone: Comment on above: Ordered: 12/13/2023 Immunizations Immunization Date Immunization Notes Care Provider Sarah [facility] 12-26-2016 influenza virus vacc ine, unspecified formulation Iveth MCGRATH Work Phone: [facility] Healthcare Payers Date Payer Category Payer Private Health Insurance [id number] 2021 Private Health Insurance [employer] [id number] 2021 Unknown FRONTPATH FRONTP ATH [id number] 2021-Present [phone] [address] [id number]. [id number] 2019 Unknown [id number] 1985 Unknown [id number] 2.16.840.1.884639.3.579.2. 902 1986 Unknown [id number] 2.16.840.1.062471.3.579.2. 593 1986 Unknown [id number] 2.16.840.1.650426.3.579.2. 593 1986 Unknown [id number] 2.16.840.1.768906.3.579.2. 593 1986 Unknown [id number] 2.16.840.1.701657.3.579.2. 59 1986 Unknown [id number] 2.16.840.1.064533.3.579.2. 593 1986 Unknown [id number] 2.840.1.425632.3.579.2. 59 1986 Unknown [id number] 2..840.1.141917.3.579.2. 1285 1986 Unknown [id number] 2.840.1.089974.3.579.2. 1285 1986 Unknown [id number] 2.840.1.788403.3.579.2. 1285 1986 Unknown [id number] 2.840.1.071100.3.579.2. 1285 1986 Unknown [id number] 2.840.1.120009.3.579.2. 1258 1986 Unknown [id number] .840.1.814551.3.579.2. 1258 1986 Unknown [id number] 2.840.1.306737.3.579.2. 1258 1986 Unknown [id number] .840.1.722260.3.579.2. 1258 1986 Unknown [id number] 2.840.1.962156.3.579.2. 1258 1986 Unknown [id number] 2.16.840.1.051359.3.579.2. 1258 1986 Unknown [id number] 2.16.840.1.590961.3.579.2. 1258 1986 Unknown [id number] 2.16840.1.530718.3.579.2. 1258 1986 Unknown [id number] 2.16.840.1.500869.3.579.2. 1259 1959 Self-pay 1959 Unknown [id number] 1959 Unknown [id number] 1959 Unknown [id number] Unknown [id number] 2.16.840.1.952125.3.579.2. 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 ([employer] Adriana 2 Elmo) device 1 Device, Does not apply, 4 [...] Missed period 09/15/2022 Moderate recurrent major depression ([facility]) 09/15/2022 Other chronic pain 09/15/2022 Radicular pain 09/15/2022 Vitamin D deficiency 09/15/2022 History of miscarriage 06/22/2023 Positive urine test 06/22/2023 23 weeks gestation of 01/10/2024 32 weeks gestation of 03/10/2024 Third trimester 03/10/2024 34 weeks gestation of 03/25/2024 Resolved Ambulatory Problems Diagnosis Date Noted No Resolved Ambulatory Problems Past Medical History: Diagnosis Date ADHD (attention deficit hyperactivity disorder) ([facility]) ADHD (attention deficit hyperactivity disorder) ([facility]) Ankle pain, left Anxiety with depression [...] Diagnosis Date ADHD (attention deficit hyperactivity disorder) ([facility]) ADHD (attention deficit hyperactivity disorder) ([facility]) Ankle pain, left Anxiety with depression [...] nursing note reviewed. Exam conducted with a statement services representative present. Vitals: Estimated body mass index is [...] of: RAMILA Joshi documented in this encounter [facility] 03-10-2024 History of Presen t illness Narrative Reason for Appointment: Patient ID: Moira Starr is a 38 y.o. female who presents for Routine Visit Patient presents today for Return OB appointment. 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 saccharomyces boulardii (FLORASTOR) 250 mg, 2 times daily ALLERGIES Allergies Allergen Reactions Sertraline Other Flat emotions Other Reaction(s): decreased emotional lability PROBLEMS Active Ambulatory Problems Diagnosis Date Noted Attention deficit hyperactivity disorder (ADHD) ([facility]) 09/15/2022 Cervicalgia 09/15/2022 Chronic fatigue 09/15/2022 Chronic tension-type headache, not intractable 09/15/2022 Generalized anxiety disorder ([facility]/HCC) 09/15/2022 HPV (human papilloma virus) infection 09/15/2022 Large breasts 09/15/2022 LGSIL on Pap smear of cervix 09/15/2022 Migraine with aura and without status migrainosus, not intractable ([facility]) 09/15/2022 Missed period 09/15/2022 Moderate recurrent major depression ([facility]) 09/15/2022 Other chronic pain 09/15/2022 Radicular pain 09/15/2022 Vitamin D deficiency 09/15/2022 History of miscarriage 06/22/2023 Positive urine test 06/22/2023 23 weeks gestation of 01/10/2024 32 weeks gestation of 03/10/2024 Third trimester 03/10/2024 Resolved Ambulatory Problems Diagnosis Date Noted No Resolved Ambulatory Problems Past Medical History: Diagnosis Date ADHD (attention deficit hyperactivity disorder) ([facility]) ADHD (attention deficit hyperactivity disorder) ([facility]) Ankle pain, left Anxiety with depression [...] Diagnosis Date ADHD (attention deficit hyperactivity disorder) ([facility]) ADHD (attention deficit hyperactivity disorder) ([facility]) Ankle pain, left Anxiety with depression [...] Rogers Ramirez DO documented in this encounter [facility] 02-20-2024 History of Presen t illness Narrative Reason for Appointment: Patient ID: Moira Starr is a 38 y.o. female who presents for Routine Visit Patient presents today for Return OB appointment. 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 female who presents for Routine Visit Patient presents today for Return OB appointment. MEDICATIONS Current Outpatient Medications Medication Instructions Continuous Glucose [employer] Linux Engineer (Free[employer] Adriana 2 Elmo) device 1 Device, Does not apply, 4 times daily ergocalciferol (VITAMIN D2) 1.25 mg, Oral, Weekly MV-Min-Fe Fum-FA-DHA ( 1 PO) Oral saccharomyces boulardii (FLORASTOR) 250 mg, Oral, 2 times daily ALLERGIES Allergies Allergen Reactions Sertraline Other Flat emotions Other Reaction(s): decreased emotional lability PROBLEMS Active Ambulatory Problems Diagnosis Date Noted Attention deficit hyperactivity disorder (ADHD) ([facility]) 09/15/2022 Cervicalgia 09/15/2022 Chronic fatigue 09/15/2022 [...] disorder) (CMS/HCC) ADHD (attention deficit hyperactivity disorder) ([facility]) Ankle pain, left Anxiety with depression [...] Diagnosis Date ADHD (attention deficit hyperactivity disorder) ([facility]) ADHD (attention deficit hyperactivity disorder) ([facility]) Ankle pain, left Anxiety with depression [...] of: RAMILA Joshi documented in this encounter [facility] 01-23-2024 Telephone encount er Note Endocrinology called today and asked about a referral that they received in 02/2023. She wasn't sure if they pt still needs the referral.. I told her that Dr Alafro sent that and she is no longer [...] we will have to put her with ASSIGNER of her choice (since she would be a returning Angelina pt) to establish care. [facility] 01-23-2024 Miscellaneous Notes Formattin g of this [...] we will have to put her with ASSIGNER of her choice (since she would be a returning Angelina pt) to establish care. documented in this encounter [facility] 01-10-2024 History of Presen t illness Narrative Reason for Appointment: Patient ID: Moira Starr is a 38 y.o. female who presents for Routine Visit Patient presents today for Return OB appointment. MEDICATIONS Current Outpatient Medications Medication Instructions Continuous Glucose [employer] ([employer] Adriana 2 Elmo) device 1 Device, Does not apply, 4 [...] Date Noted Attention deficit hyperactivity disorder (ADHD) ([facility]) 09/15/2022 Cervicalgia 09/15/2022 Chronic fatigue 09/15/2022 Chronic tension-type headache, not intractable 09/15/2022 Generalized anxiety disorder ([facility]) 09/15/2022 HPV (human papilloma virus) infection 09/15/2022 Large breasts 09/15/2022 LGSIL on Pap smear of cervix 09/15/2022 Migraine with aura and without status migrainosus, not intractable ([facility]) 09/15/2022 Missed period 09/15/2022 Moderate recurrent major depression ([facility]) 09/15/2022 Other chronic pain 09/15/2022 Radicular pain 09/15/2022 Vitamin D deficiency 09/15/2022 History of miscarriage 06/22/2023 Positive urine test 06/22/2023 Resolved Ambulatory Problems Diagnosis Date Noted No Resolved Ambulatory Problems Past Medical History: Diagnosis Date ADHD (attention deficit hyperactivity disorder) ([facility]) ADHD (attention deficit hyperactivity disorder) ([facility]) Ankle pain, left Anxiety with depression [...] Diagnosis Date ADHD (attention deficit hyperactivity disorder) ([facility]) ADHD (attention deficit hyperactivity disorder) ([facility]) Ankle pain, left Anxiety with depression [...] nursing note reviewed. Exam conducted with a statement services representative present. Vitals: Estimated body mass index is [...] Rogers Ramirez DO documented in this encounter [facility] 12-13-2023 History of Presen t illness Narrative Reason for Appointment: Patient ID: Moira Starr is a 38 y.o. female who presents for Routine Visit and STI Screening Patient presents today for Return OB appointment. 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 Exam conducted with a statement services representative present. Vitals: Estimated body mass index is [...] Rogers Ramirez DO documented in this encounter [facility] 11-15-2023 History of Presen t illness Narrative [...] Date Noted Attention deficit hyperactivity disorder (ADHD) ([facility]) 09/15/2022 Cervicalgia 09/15/2022 Chronic fatigue 09/15/2022 Chronic tension-type headache, not intractable 09/15/2022 Generalized anxiety disorder ([facility]/HCC) 09/15/2022 HPV (human papilloma virus) infection 09/15/2022 Large breasts 09/15/2022 LGSIL on Pap smear of cervix 09/15/2022 Migraine with aura and without status migrainosus, not intractable (CMS/HCC) 09/15/2022 Missed period 09/15/2022 Moderate recurrent major depression (HCC) ([facility]) 09/15/2022 Other chronic pain 09/15/2022 Radicular pain 09/15/2022 Vitamin D deficiency 09/15/2022 History of miscarriage 06/22/2023 Positive urine test 06/22/2023 Resolved Ambulatory Problems Diagnosis Date Noted No Resolved Ambulatory Problems Past Medical History: Diagnosis Date ADHD (attention deficit hyperactivity disorder) ([facility]) ADHD (attention deficit hyperactivity disorder) ([facility]) Ankle pain, left Anxiety with depression [...] Diagnosis Date ADHD (attention deficit hyperactivity disorder) ([facility]) ADHD (attention deficit hyperactivity disorder) ([facility]) Ankle pain, left Anxiety with depression [...] or undercooked meat, and stay away from [facility]. Patient has been consulted regarding any [...] Iveth Hood PA-C documented in this encounter [facility] 03-01-2021 Evaluation note Encounter Date Diagnosis Assessment Notes Feb, Closed fracture of capitellum of left humerus with routine healing (ICD-10 - S42.452D) MRI reviewed with patient as healing fractures within the elbow. Discussed that her lacking range of motion may be a skilled nursing condition, with or without surgical intervention. Instructed [...] M24.022) Feb, Pre-op exam (ICD-10 - Z01.818) [employer] Other Evaluation note* Diagnosis Second trimester state, [...] Reported* Type Description Date Medical History ADHD [employer] 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 Relationship Specialty Start Date End Date Emily Alfaro DO [address] [place] [address] PCP - General Family Medicine 09/14/22 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 Relationship Specialty Start Date End Date Emily Alfaro DO [address] [place] [address] PCP - General Family Medicine 09/14/22 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 Relationship Specialty Start Date End Date Emily Alfaro DO [address] [place] [address] PCP - General Family Medicine 09/14/22 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 Relationship Specialty Start Date End Date Emily Alfaro DO [address] [place] [address] PCP - General Family Medicine 09/14/22 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 Relationship Specialty Start Date End Date Emily Alfaro DO [address] [place] [address] PCP - General Family Medicine 09/14/22 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 Relationship Specialty Start Date End Date Emily Alfaro DO [address] [place] [address] PCP - General Family Medicine 09/14/22 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 Relationship Specialty Start Date End Date Emily Alfaro DO [address] [place] [address] PCP - General Family Medicine 09/14/22 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 Relationship Specialty Start Date End Date Emily Alfaro DO [address] [place] [address] PCP - General Family Medicine 09/14/22 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 Relationship Specialty Start Date End Date Emily Alfaro DO [address] [place] [address] PCP - General Family Medicine 09/14/22 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 [facility]. provides no warranty or guarantee of the accuracy or completeness of information in this document.
--- OUTSIDE RECORDS SUMMARY | 2024-04-10 08:27 | XMS_ITS | CCD ---
Author Organization [facility] CliniSyvt Care Team Providers Care Orthotist/Prosthetist Name Role Phone HUBER LUNDBERG Attending Unavailable [...] DR MCCLOUD Admitting Unavailable JAMES ., DR MCCOLUD Attending Unavailable JAMES ., DR MCCLOUD Consulting Unavailable MISC, DR JACKSON Primary Care Unavailable MISC, DR JACKSON Primary Care Unavailable JAMES ., DR MCCLOUD Admitting Unavailable COLMAR, DR CARIDAD Martin Consulting Unavailable JAMES ., [...] Orally Twice a day Active Continuous Glucose Talent Program Manager (FreeStyle Adriana 2 [place]) device (20 sources) Start: 11-15-2023 Continuous Glucose Talent Program Manager (FreeStyle Adriana 2 [place]) device Indications: History of gestational diabetes 1 [...] every week ergocalciferol (Vitamin D2) 1.25 MG (58605 UT) capsule Indications: Vitamin D deficiency Take [...] Start: 12-13-2023 End: 10-26-2024 Continuous Glucose Sensor [facility] [facility] [place] Indications: Elevated glucose 1 Device every 14 [...] UA Negative Negative - 4(70) +++ mg/dL [facility] Blood, UA Negative Negative - 50 Andrew/mcL [facility] Clarity, UA Clear [facility] Color, UA Yellow [facility] Glucose, UA Negative Negative - 2000(110) ++++ mg/dL [facility] Interpretation and review of laboratory results Abnormal [facility] Ketones, UA Positive Negative - 160(16) ++++ mg/dL [facility] Comment on above: trace Leukocytes, UA Trace Negative - 500+++ Lore/mcL [facility] Nitrite, UA Negative Negative - Positive [facility] pH, UA 6.5 5 - 9 [facility] Protein, UA Positive Negative - 2000(20) ++++ mg/dL [facility] Comment on above: 30mg Spec Grav, UA 1.025 1 - 1.03 [facility] Urobilinogen, UA 1.0 0.2 - 12 mg/dL [facility] Urinalysis macro (dipstick) panel (U)on 03-10-2024 Bilirubin, UA Positive Negative - 4(70) +++ mg/dL [facility] Comment on above: small Blood, UA Negative Negative - 50 Andrew/mcL [facility] Clarity, UA Clear [facility] Color, UA Yellow [facility] Glucose, UA Negative Negative - 2000(110) ++++ mg/dL [facility] Interpretation and review of laboratory results Abnormal [facility] Ketones, UA Positive Negative - 160(16) ++++ mg/dL [facility] Comment on above: trace Leukocytes, UA Negative Negative - 500+++ Lore/mcL [facility] Nitrite, UA Negative Negative - Positive [facility] pH, UA 6 5 - 9 [facility] Protein, UA Positive Negative - 1999(20) ++++ mg/dL [facility] Comment on above: 30 Spec Grav, UA 1.025 1 - 1.03 [facility] Urobilinogen, UA 1.0 0.2 - 12 mg/dL [facility] MLR HEMOGLOBIN A1Con 024 Glucose [Mass/Vol] 114 mg/dL [facility] HbA1c (Bld) [Mass fraction] 5.6 % 4.5 - 6.2 % [facility] Comment on above: ADA RECOMMENDED LIMI T 4.0 - 6.0 ADA THERAPEUTIC TARGET < 7.0 ACTION SUGGESTED > 7.0 [facility] Urinalysis macro (dipstick) panel (U)on 02-20-2024 Bilirubin, UA Positive Negative - 4(70) +++ mg/dL [facility] Comment on above: small Blood, UA Negative Negative - 50 Andrew/mcL [facility] Clarity, UA Clear [facility] Color, UA Yellow [facility] Glucose, UA Negative Negative - 1999(110) ++++ mg/dL [facility] Interpretation and review of laboratory results Abnormal [facility] Ketones, UA Positive Negative - 160(16) ++++ mg/dL [facility] Comment on above: trace Leukocytes, UA Negative Negative - 500+++ Lore/mcL [facility] Nitrite, UA Negative Negative - Positive [facility] pH, UA 6 5 - 9 [facility] Protein, UA Trace Negative - 1999(20) ++++ mg/dL [facility] Spec Grav, UA 1.03 1 - 1.03 [facility] Urobilinogen, UA 1.0 0.2 - 12 mg/dL [facility] Urinalysis macro (dipstick) panel (U)on 01-10-2024 Bilirubin, UA Negative Negative - 4(70) +++ mg/dL [facility] Blood, UA Negative Negative - 50 Andrew/mcL [facility] Clarity, UA Clear [facility] Color, UA Yellow [facility] Glucose, UA Negative Negative - 2000(110) ++++ mg/dL [facility] Interpretation and review of laboratory results Normal [facility] Ketones, UA Negative Negative - 160(16) ++++ mg/dL [facility] Leukocytes, UA Negative Negative - 500+++ Lore/mcL [facility] Nitrite, UA Negative Negative - Positive [facility] pH, UA 5.5 5 - 9 [facility] Protein, UA Negative Negative - 1999(20) ++++ mg/dL [facility] Spec Grav, UA 1.02 1 - 1.03 [facility] Urobilinogen, UA 1.0 0.2 - 12 mg/dL [facility] URETHRITIS/DISCHARGE PLUS VA GINITIS (HTRX)on 12-14-2023 ATOPOBIUM VAGINAE 0.000 [facility] ATOPOBIUM VAGINAE Not detected [facility] BVAB 2,3 (BACTERIAL VAGINOSIS ASSOCIATED BACTERIA 2, 3); MOBILUNCUS SPP 26.743 Abnormal [facility] BVAB 2,3 (BACTERIAL VAGINOSIS ASSOCIATED BACTERIA 2, 3); MOBILUNCUS SPP Detected Abnormal [facility] TATYANA ALBICANS, PARAPSILOSIS, TROPICALIS 0.000 [facility] TATYANA ALBICANS, PARAPSILOSIS, TROPICALIS Not detected [facility] TATYANA GLABRATA 0.000 [facility] TATYANA GLABRATA Not detected [facility] TATYANA KRUSEI 0.000 [facility] TATYANA KRUSEI Not detected [facility] CHLAMYDIA TRACHOMATIS 0.000 [facility] CHLAMYDIA TRACHOMATIS Not detected [facility] GARDNERELLA VAGINALIS 0.000 [facility] GARDNERELLA VAGINALIS Not detected [facility] Interpretation and review of laboratory results Abnormal [facility] MEGASPHAERA (TYPES 1, 2) 0.000 [facility] MEGASPHAERA (TYPES 1, 2) Not detected [facility] MYCOPLASMA GENITALIUM 0.000 [facility] MYCOPLASMA GENITALIUM Not detected [facility] NEISSERIA GONORRHOEAE 0.000 [facility] NEISSERIA GONORRHOEAE Not detected [facility] TRICHOMONAS VAGINALIS 0.000 [facility] TRICHOMONAS VAGINALIS Not detected [facility] Urinalysis macro (dipstick) panel (U)on 12-13-2023 Bilirubin, UA Negative Negative - 4(70) +++ mg/dL [facility] Blood, UA Negative Negative - 50 Andrew/mcL [facility] Clarity, UA Clear [facility] Color, UA Yellow [facility] Glucose, UA Negative Negative - 1999(110) ++++ mg/dL [facility] Interpretation and review of laboratory results Abnormal [facility] Ketones, UA Positive Negative - 160(16) ++++ mg/dL [facility] Comment on above: trace Leukocytes, UA Negative Negative - 500+++ Lore/mcL [facility] Nitrite, UA Negative Negative - Positive [facility] pH, UA 6.5 5 - 9 [facility] Protein, UA Negative Negative - 1999(20) ++++ mg/dL [facility] Spec Grav, UA 1.025 1 - 1.03 [facility] Urobilinogen, UA 1.0 0.2 - 12 mg/dL [facility] Urinalysis macro (dipstick) panel (U)on 11-15-2023 Bilirubin, UA Negative Negative - 4(70) +++ mg/dL [facility] Blood, UA Negative Negative - 50 Andrew/mcL [facility] Clarity, UA Clear [facility] Color, UA Yellow [facility] Glucose, UA Negative Negative - 1999(110) ++++ mg/dL [facility] Interpretation and review of laboratory results Normal [facility] Ketones, UA Negative Negative - 160(16) ++++ mg/dL [facility] Leukocytes, UA Negative Negative - 500+++ Lore/mcL [facility] Nitrite, UA Negative Negative - Positive [facility] pH, UA 5.5 5 - 9 [facility] Protein, UA Negative Negative - 1999(20) ++++ mg/dL [facility] Spec Grav, UA 1.020 1 - 1.03 [facility] Urobilinogen, UA 1.0 0.2 - 12 mg/dL [facility] ALL CBC WITH AUTO DIFFon BASOPHILS ABSOLUTE AUTO 0.0 [facility] Basophils/100 WBC (Bld) 0.4 % 0.2 - 2.0 % [facility] Eosinophils/100 WBC (Bld) 3.0 % 0.9 - 7.0 % [facility] Erythrocyte distribution width (RBC) [Ratio] 16.1 % High 11.0 - 15.0 % [facility] Hematocrit (Bld) [Volume fraction] 36.3 % 36.0 - 48.0 % [facility] Hemoglobin (Bld) [Mass/Vol] 11.4 g/dL Low 12.0 - 16.0 g/dL [facility] IMMATURE GRANULOCYTES ABS AUTO 0.03 [facility] Immature granulocytes/100 WBC (Bld) 0.3 % 0.0 - 0.5 % [facility] Interpretation and review of laboratory results Abnormal [facility] LYMPHOCYTES ABSOLUTE AUTO 2.2 [facility] Lymphocytes/100 WBC (Bld) 23.6 % 20.5 - 60.0 % [facility] MCH (RBC) [Entitic mass] 26.0 pg Low 26.7 - 34.0 pg [facility] MCHC (RBC) [Mass/Vol] 31.4 g/dL 29.9 - 35.2 g/dL [facility] MCV (RBC) [Entitic vol] 82.9 fL 81.0 - 99.0 fL [facility] MONOCYTES ABSOLUTE AUTO 0.5 [facility] Monocytes/100 WBC (Bld) 5.1 % 1.7 - 12.0 % [facility] NEUTROPHILS ABSOLUTE AUTO 6.2 [facility] Neutrophils/100 WBC (Bld) 67.6 % 43.0 - 75.0 % [facility] Platelet mean volume (Bld) [Entitic vol] 11.0 fL 9.5 - 13.5 fL [facility] TBH EO # 0.3 [facility] PLT 271 [facility] RBC 4.38 [facility] WBC 9.2 [facility] Cytology Cervical or vaginal smear or scraping studyon 03-08-2023 [facility] CHLAMYDIA/GONOCOCCUS JESE ( AB/URINE/PAPon 06-01-2022 Chlamydia trachomatis, JESE Negative Normal Negative [facility] Comment on above: Performed By: #### P TT, PT #### [facility] [address] [address] [address] Todd Moreno Neisseria gonorrhoeae, JESE Negative Normal Negative [facility] Comment on above: Performed By: #### P TT, PT #### [facility] [address], [place] [address] Dr. Todd Moreno VAGINITIS/VAGINOSIS DNA PROB Shahede 06-01-2022 Tatyana species Negative Normal Negative [facility] Comment on above: Performed By: #### P TT, PT #### [facility] [address], [place] [address] Dr. Todd Moreno Gardnerella vaginalis Negative Normal Negative [facility] Comment on above: Performed By: #### P TT, PT #### [facility] [address] [place] [address] Dr. Todd Moreno Trichomonas vaginalis Negative Normal Negative [facility] Comment on above: Performed By: #### P TT, PT #### [facility] [address] [address] [address] Todd Moreno HEP B SURFACE ANTIGEN SCREEN on 03-22-2022 HBsAg Screen Negative Normal Negative [facility] Comment on above: Performed By: #### H BSANS #### [facility] [address] [place] [address] Dr. Todd Moreno HEPATITIS C VIRUS AB W/ REFL EX QUANTon 03-22-2022 HCV AB 0.1 s/co ratio Normal 0.0-0.[address] [facility] Comment on above: Performed By: #### P TT, PT #### [facility] [address] [place] [address] Dr. Todd Moreno Interpretation: Comment Normal [facility] Comment on above: Result Comment: Nega tive Not infected with HCV, unless recent infection is suspected or other evidence exists to indicate HCV infection. Performed By: #### P TT, PT #### [facility] [address] [place] [address] Dr. Todd Moreno HIV 1 AND 2 WITH REFLEXon HIV Screen 4th Generation wRfx Non-Reactive Normal Non Reactive [facility] Comment on above: Result Comment: HIV Negative HIV-1/HIV-2 antibodies and HIV-1 p24 antigen were NOT detected. There is no laboratory evidence of HIV infection. Performed By: #### H IV12 #### [facility] [address] [place] [address] Dr. Todd Moreno RPR QUANTon 03-22-2022 Rapid Plasma Reagin, Quant Non-Reactive Normal NonRea<1:1 [facility] Comment on above: Result Comment: Plea se Note: This test does not meet current guidelines for screening and diagnosis of syphilis. This test is intended for following treatment response in patients being treated for syphilis infection. To screen for syphilis infection, a reflex cascade that includes both RPR and a treponema-specific assay should be utilized, such as Treponema pallidum (Syphilis) Screening Screven (727953) or Rapid Plasma Reagin (RPR) Test With Reflex to Quantitative RPR and Confirmatory Treponema pallidum Antibodies (822238). Performed By: #### R PRQ #### [facility] [address] [place] [address] Dr. Todd Moreno RUBELLA AB IGGon 03-22-2022 Rubella Antibodies, IgG 5.11 index Normal Immune >0.99 [facility] Comment on above: Result Comment: Non- immune <0.90 Equivocal 0.90 - 0.99 Immune >0.99 Performed By: #### R PRQ #### [facility] [address] [place] [address] Dr. Todd Moreno CBC AUTO DIFFon 03-20-2022 BASO # 0.0 103/ul Normal 0.0-0.1 [facility] Comment on above: Performed By: #### P TT, PT #### [facility] [address] [place] [address] Dr. Todd Moreno Basophils/100 WBC (Bld) 0.3 % Normal 0.2-2.0 [facility] Comment on above: Performed By: #### P TT, PT #### [facility] [address] [place] [address] Dr. Todd Moreno EO # 0.1 103/ul Normal 0.0-0.7 [facility] Comment on above: Performed By: #### P TT, PT #### [facility] [address] [place] [address] Dr. Todd Moreno Eosinophils/100 WBC (Bld) 1.0 % Normal 0.9-7.0 [facility] Comment on above: Performed By: #### P TT, PT #### [facility] [address] [place] [address] Dr. Todd Moreno Erythrocyte distribution width (RBC) [Ratio] 14.4 % Normal 11.0-15.0 [facility] Comment on above: Performed By: #### P TT, PT #### [facility] [address] [place] [address] Dr. Todd Moreno Hematocrit (Bld) [Volume fraction] 38.2 % Normal 36.0-48.0 [facility] Comment on above: Performed By: #### P TT, PT #### [facility] [address] [place] [address] Dr. Todd Moreno Hemoglobin (Bld) [Mass/Vol] 12.2 g/dL Normal 12.0-16.0 [facility] Comment on above: Performed By: #### P TT, PT #### [facility] [address] [place] [address] Dr. Todd Moreno IG # 0.03 10e3/ul Normal 0.00-0.03 [facility] Comment on above: Performed By: #### P TT, PT #### [facility] [address] [place] [address] Dr. Todd Moreno IG % 0.3 % Normal 0.0-0.5 [facility] Comment on above: Performed By: #### P TT, PT #### [facility] [address] [place] [address] Dr. Todd Moreno LYMPH # 1.9 103/ul Normal 1.2-3.8 [facility] Comment on above: Performed By: #### P TT, PT #### [facility] [address] [place] [address] Dr. Todd Moreno Lymphocytes/100 WBC (Bld) 19.0 % Critically low 20.5-60.0 [facility] Comment on above: Performed By: #### P TT, PT #### [facility] [address] [place] [address] Dr. Todd Moreno MANUAL DIFF REQ NO Normal [facility] Comment on above: Performed By: #### P TT, PT #### [facility] [address] [place] [address] Dr. Todd Moreno MCH (RBC) [Entitic mass] 26.1 pg Critically low 26.7-34.0 [facility] Comment on above: Performed By: #### P TT, PT #### [facility] [address] [place] [address] Dr. Tdod Moreno MCHC (RBC) [Mass/Vol] 31.9 g/dL Normal 29.9-35.2 [facility] Comment on above: Performed By: #### P TT, PT #### [facility] [address] [address] [address] Todd Moreno MCV (RBC) [Entitic vol] 81.6 fL Normal 81.0-99.0 [facility] Comment on above: Performed By: #### P TT, PT #### [facility] [address] [address] [address] Todd Moreno MONO # 0.4 103/ul Normal 0.3-0.8 [facility] Comment on above: Performed By: #### P TT, PT #### [facility] [address] [place] [address] Dr. Todd Moreno Monocytes/100 WBC (Bld) 4.4 % Normal 1.7-12.0 [facility] Comment on above: Performed By: #### P TT, PT #### [facility] [address] [place] [address] Dr. Todd Moreno NEUT # 7.5 103/ul Critically high 1.4-6.5 [facility] Comment on above: Performed By: #### P TT, PT #### [facility] [address] [place] [address] Dr. Todd Moreno Neutrophils/100 WBC (Bld) 75.0 % Normal 43.0-75.0 [facility] Comment on above: Performed By: #### P TT, PT #### [facility] [address] [place] [address] Dr. Todd Moreno Platelet mean volume (Bld) [Entitic vol] 10.4 fL Normal 9.5-13.5 [facility] Comment on above: Performed By: #### P TT, PT #### [facility] [address] [place] [address] Dr. Todd Moreno PLT 302 103/ul Normal 150-450 [facility] Comment on above: Performed By: #### P TT, PT #### [facility] [address] [place] [address] Dr. Todd Moreno RBC 4.68 106/ul Normal 4.20-5.40 [facility] Comment on above: Performed By: #### P TT, PT #### [facility] [address] [place] [address] Dr. Todd Moreno WBC 10.1 103/ul Normal 4.0-11.0 [facility] Comment on above: Performed By: #### P TT, PT #### [facility] [address] [place] [address] Dr. Todd Moreno CULTURE URINEon 03-20-2022 CULTURE URINE Culture Observations : MODERATE GROWTH OF MIXED GENITAL LORA. NO POTENTIAL PATHOGENS SEEN. Normal [facility] Comment on above: Performed By: #### P TT, PT #### [facility] [address] [place] [address] Dr. Todd Moreno GLYCOHEMOGLOBIN A1Con 2022 ADA RECOMMENDATION SEE BELOW Normal [facility] Comment on above: Result Comment: ADA RECOMMENDED LIMIT 4.0 - 6.0 ADA THERAPEUTIC TARGET < 7.0 ACTION SUGGESTED > 7.0 Performed By: #### A 1C #### [facility] [address] [place] [address] Dr. Todd Moreno Glucose [Mass/Vol] 105 mg/dL Normal [facility] Comment on above: Performed By: #### A 1C #### [facility] [address] [place] [address] Dr. Todd Moreno HbA1c (Bld) [Mass fraction] 5.3 % Normal 4.5-6.2 [facility] Comment on above: Performed By: #### A 1C #### [facility] [address] [place] [address] Dr. Todd Moreno BENJAMIN BOX TEST PT SEND OUTo n 03-20-2022 SENT TO REF LAB 03/20/2022 Normal [facility] Comment on above: Performed By: #### P TT, PT #### [facility] [address] [place] [address] Dr. Todd Moreno TYPE AND SCREENon 03-20-2022 TYPE AND SCREEN Negative Normal [facility] Comment on above: Performed By: #### P TT, PT #### [facility] [address], [place] [address] Dr. Todd Moreno US PREG TVon 02-24-2022 [...] CARIDAD DOBSON Date: 2022-02-24 16:16 Normal [facility] CULTURE URINEon 02-03-2022 CULTURE [...] F Oxacillin 0.5 S F Normal [facility] Comment on above: Performed By: #### P TT, PT #### [facility] [address], [place] [address] Dr. Todd Moreno US PREG TVon 02-01-2022 [...] ETHAN MERCER Date: 2022-01-31 22:05 Normal [facility] CBC AUTO DIFFon 01-31-2022 BASO # 0.1 103/ul Normal 0.0-0.1 [facility] Comment on above: Performed By: #### P TT, PT #### [facility] [address] [address] [address] Todd Moreno Basophils/100 WBC (Bld) 0.8 % Normal 0.2-2.0 [facility] Comment on above: Performed By: #### P TT, PT #### [facility] [address] [address] [address] Todd Moreno EO # 0.5 103/ul Normal 0.0-0.7 [facility] Comment on above: Performed By: #### P TT, PT #### [facility] [address] [address] [address] Todd Moreno Eosinophils/100 WBC (Bld) 5.4 % Normal 0.9-7.0 [facility] Comment on above: Performed By: #### P TT, PT #### [facility] [address] [place] [address] Dr. Todd Moreno Erythrocyte distribution width (RBC) [Ratio] 15.0 % Normal 11.0-15.0 [facility] Comment on above: Performed By: #### P TT, PT #### [facility] [address] [place] [address] Dr. Todd Moreno Hematocrit (Bld) [Volume fraction] 34.3 % Critically low 36.0-48.0 [facility] Comment on above: Performed By: #### P TT, PT #### [facility] [address] [place] [address] Dr. Todd Moreno Hemoglobin (Bld) [Mass/Vol] 11.2 g/dL Critically low 12.0-16.0 [facility] Comment on above: Performed By: #### P TT, PT #### [facility] [address] [place] [address] Dr. Todd Moreno IG # 0.02 10e3/ul Normal 0.00-0.03 [facility] Comment on above: Performed By: #### P TT, PT #### [facility] [address] [place] [address] Dr. Todd Moreno IG % 0.2 % Normal 0.0-0.5 [facility] Comment on above: Performed By: #### P TT, PT #### [facility] [address] [place] [address] Dr. Todd Moreno LYMPH # 2.7 103/ul Normal 1.2-3.8 [facility] Comment on above: Performed By: #### P TT, PT #### [facility] [address] [place] [address] Dr. Todd Moreno Lymphocytes/100 WBC (Bld) 29.9 % Normal 20.5-60.0 [facility] [facility] Comment on above: Performed By: #### P TT, PT #### [facility] [address] [place] [address] Dr. Todd Moreno MANUAL DIFF REQ NO Normal [facility] Comment on above: Performed By: #### P TT, PT #### [facility] [address] [place] [address] Dr. Todd Moreno MCH (RBC) [Entitic mass] 26.7 pg Normal 26.7-34.0 [facility] Comment on above: Performed By: #### P TT, PT #### [facility] [address] [place] [address] Dr. Todd Moreno MCHC (RBC) [Mass/Vol] 32.7 g/dL Normal 29.9-35.2 [facility] Comment on above: Performed By: #### P TT, PT #### [facility] [address] [place] [address] Dr. Todd Moreno MCV (RBC) [Entitic vol] 81.7 fL Normal 81.0-99.0 [facility] Comment on above: Performed By: #### P TT, PT #### [facility] [address] [place] [address] Dr. Todd Moreno MONO # 0.5 103/ul Normal 0.3-0.8 [facility] Comment on above: Performed By: #### P TT, PT #### [facility] [address] [place] [address] Dr. Todd Moreno Monocytes/100 WBC (Bld) 5.7 % Normal 1.7-12.0 [facility] Comment on above: Performed By: #### P TT, PT #### [facility] [address] [place] [address] Dr. Todd Moreno NEUT # 5.2 103/ul Normal 1.4-6.5 [facility] Comment on above: Performed By: #### P TT, PT #### [facility] [address] [place] [address] Dr. Todd Moreno Neutrophils/100 WBC (Bld) 58.0 % Normal 43.0-75.0 [facility] Comment on above: Performed By: #### P TT, PT #### [facility] [address] [place] [address] Dr. Todd Moreno Platelet mean volume (Bld) [Entitic vol] 10.4 fL Normal 9.5-13.5 [facility] Comment on above: Performed By: #### P TT, PT #### [facility] [address] [place] [address] Dr. Todd Moreno PLT 270 103/ul Normal 150-450 [facility] Comment on above: Performed By: #### P TT, PT #### [facility] [address] [place] [address] Dr. Todd Moreno RBC 4.20 106/ul Normal 4.20-5.40 [facility] Comment on above: Performed By: #### P TT, PT #### [facility] [address] [place] [address] Dr. Todd Moreno WBC 9.1 103/ul Normal 4.0-11.0 [facility] Comment on above: Performed By: #### P TT, PT #### [facility] [address] [place] [address] Dr. Todd Moreno ER URINE PROFILEon 2 Bilirubin Ql (U) Negative Normal NEGATIVE [facility] Comment on above: Performed By: #### P TT, PT #### [facility] [address] [place] [address] Dr. Todd Moreno Clarity (U) CLEAR Normal CLEAR [facility] Comment on above: Performed By: #### P TT, PT #### [facility] [address] [place] [address] Dr. Todd Moreno Color (U) YELLOW Normal YELLOW [facility] Comment on above: Performed By: #### P TT, PT #### [facility] [address] [place] [address] Dr. Todd Moreno ERUAHD A micrscopic examination will be performed if indicated. Normal [facility] Comment on above: Performed By: #### P TT, PT #### [facility] [address] [place] [address] Dr. Todd Moreno Glucose Ql (U) Negative Normal NEGATIVE [facility] Comment on above: Performed By: #### P TT, PT #### [facility] [address] [place] [address] Dr. Todd Moreno Hemoglobin Ql (U) TRACE-INTACT Abnormal NEGATIVE [facility] Comment on above: Performed By: #### P TT, PT #### [facility] [address] [place] [address] Dr. Todd Moreno Ketones Ql (U) Negative Normal NEGATIVE [facility] Comment on above: Performed By: #### P TT, PT #### [facility] [address] [place] [address] Dr. Todd Moreno LEUKOCYTES SMALL Abnormal NEGATIVE [facility] Comment on above: Performed By: #### P TT, PT #### [facility] [address] [place] [address] Dr. Todd Moreno Nitrite Ql (U) Negative Normal NEGATIVE [facility] Comment on above: Performed By: #### P TT, PT #### [facility] [address] [place] [address] Dr. Todd Moreno pH (U) 6.5 [pH] Normal 5-9 [facility] Comment on above: Performed By: #### P TT, PT #### [facility] [address] [place] [address] Dr. Todd Moreno SPEC GRAVITY 1.015 Normal 1.005-<=1.025 [facility] Comment on above: Performed By: #### P TT, PT #### [facility] [address] [place] [address] Dr. Todd Moreno UA PROTEIN Negative Normal NEGATIVE/ TRACE [facility] Comment on above: Performed By: #### P TT, PT #### [facility] [address] [place] [address] Dr. Todd Moreno UR MICRO IND INDICATED Normal [facility] Comment on above: Performed By: #### P TT, PT #### [facility] [address] [place] [address] Dr. Todd Moreno Urobilinogen Qn (U) 0.2 {Tiffany'U}/dL Normal 0.2 - 1. 0 [facility] Comment on above: Performed By: #### P TT, PT #### [facility] [address] [place] [address] Dr. Todd Moreno LIPASEon 01-31-2022 Lipase [Catalytic activity/Vol] 123.0 U/L Normal 73.0-393.0 [facility] Comment on above: Performed By: #### C MP, LIPA #### [facility] [address] [place] [address] Dr. Todd Moreno PREG QUANT HCGon 01-31-2022 HCG QUANT 711 mIU/mL Normal [facility] Comment on above: Performed By: #### P TT, PT #### [facility] [address] [place] [address] Dr. Todd Moreno HCG RANGE SEE BELOW Normal [facility] Comment on above: Result Comment: 5-50 0.2-1 WEEK 50-500 1-2 WEEKS 100-5,000 2-3 WEEKS 500-10,000 3-4 WEEKS 1,000-50,000 4-5 WEEKS 10,000-100,000 5-6 WEEKS 15,000-200,000 6-8 WEEKS 10,000-100,000 2-3 MONTHS Performed By: #### P TT, PT #### [facility] [address] [place] [address] Dr. Todd Moreno PROF 14(COMP METB)on 022 Albumin [Mass/Vol] 3.7 g/dL Normal 3.4-5.0 [facility] Comment on above: Performed By: #### C MP, LIPA #### [facility] [address] [place] [address] Dr. Todd Moreno Albumin/Globulin [Mass ratio] 1.0 {ratio} Normal [facility] Comment on above: Performed By: #### C MP, LIPA #### [facility] [address] [place] [address] Dr. Todd Moreno ALP [Catalytic activity/Vol] 80 U/L Normal 46-116 [facility] Comment on above: Performed By: #### C MP, LIPA #### [facility] [address] [place] [address] Dr. Todd Moreno ALT [Catalytic activity/Vol] 23 U/L Normal 14-59 [facility] Comment on above: Performed By: #### C MP, LIPA #### [facility] [address] [place] [address] Dr. Todd Moreno Anion gap [Moles/Vol] 10.2 mmol/L Normal [facility] Comment on above: Performed By: #### C MP, LIPA #### [facility] [address] [place] [address] Dr. Todd Moreno AST [Catalytic activity/Vol] 14 U/L Critically low 15-37 [facility] Comment on above: Performed By: #### C MP, LIPA #### [facility] [address] [place] [address] Dr. Todd Moreno Bilirubin [Mass/Vol] 0.3 mg/dL Normal 0.2-1.0 [facility] Comment on above: Performed By: #### C MP, LIPA #### [facility] [address] [place] [address] Dr. Todd Moreno Calcium [Mass/Vol] 9.1 mg/dL Normal 8.5-10.1 [facility] Comment on above: Performed By: #### C MP, LIPA #### [facility] [address] [place] [address] Dr. Todd Moreno Chloride [Moles/Vol] 104 mmol/L Normal 98-107 [facility] Comment on above: Performed By: #### C MP, LIPA #### [facility] [address] [place] [address] Dr. Todd Moreno CO2 [Moles/Vol] 26.8 mmol/L Normal 21.0-32.0 [facility] Comment on above: Performed By: #### C MP, LIPA #### [facility] [address] [place] [address] Dr. Todd Moreno Creatinine [Mass/Vol] 0.87 mg/dL Normal 0.55-1.02 [facility] Comment on above: Performed By: #### C MP, LIPA #### [facility] [address] [place] [address] Dr. Todd Moreno EGFR-AF SLOVAK >60 Normal >=60 [facility] Comment on above: Performed By: #### C MP, LIPA #### [facility] [address] [place] [address] Dr. Todd Moreno EGFR-NON AF SLOVAK >60 Normal >=60 [facility] Comment on above: Performed By: #### C MP, LIPA #### [facility] [address] [place] [address] Dr. Todd Moreno Globulin (S) [Mass/Vol] 3.7 g/dL Normal [facility] Comment on above: Performed By: #### C MP, LIPA #### [facility] [address] [place] [address] Dr. Todd Moreno Glucose [Mass/Vol] 98 mg/dL Normal 74-106 [facility] Comment on above: Performed By: #### C MP, LIPA #### [facility] [address] [place] [address] Dr. Todd Moreno Potassium [Moles/Vol] 4.0 mmol/L Normal 3.5-5.1 [facility] Comment on above: Performed By: #### C MP, LIPA #### [facility] [address] [place] [address] Dr. Todd Moreno Protein [Mass/Vol] 7.4 g/dL Normal 6.4-8.2 [facility] Comment on above: Performed By: #### C MP, LIPA #### [facility] [address] [place] [address] Dr. Todd Moreno Sodium [Moles/Vol] 137 mmol/L Normal 136-145 [facility] Comment on above: Performed By: #### C MP, LIPA #### [facility] [address] [place] [address] Dr. Todd Moreno Urea nitrogen [Mass/Vol] 15.0 mg/dL Normal 7.0-18.0 [facility] Comment on above: Performed By: #### C MP, LIPA #### [facility] [address] [place] [address] Dr. Todd Moreno Urea nitrogen/Creatinine [Mass ratio] 17.2 mg/mg Normal [facility] Comment on above: Performed By: #### C MP, LIPA #### [facility] [address] [place] [address] Dr. Todd Moreno URINE MICROSCOPIC ONLYon BACTERIA SMALL Abnormal NONE SEEN [facility] Comment on above: Performed By: #### P TT, PT #### [facility] [address] [place] [address] Dr. Todd Moreno Bacteria identified Cx Nom (U) INDICATED Normal [facility] Comment on above: Performed By: #### P TT, PT #### [facility] [address] [place] [address] Dr. Todd Moreno CAST NONE SEEN Normal NONE SEEN [facility] Comment on above: Performed By: #### P TT, PT #### [facility] [address] [place] [address] Dr. Todd Moreno Crystals LM Nom (Urine sed) NONE SEEN Normal NONE SEEN [facility] Comment on above: Performed By: #### P TT, PT #### [facility] [address] [place] [address] Dr. Todd Moreno Epithelial cells LM Ql (Urine sed) FEW Abnormal NONE SEEN /RARE [facility] Comment on above: Performed By: #### P TT, PT #### [facility] [address] [place] [address] Dr. Todd Moreno MUCOUS NONE SEEN Normal NONE SEEN [facility] Comment on above: Performed By: #### P TT, PT #### [facility] [address] [place] [address] Dr. Todd Moreno RBC 0-2 Normal 0-2 [facility] Comment on above: Performed By: #### P TT, PT #### [facility] [address] [place] [address] Dr. Todd Moreno WBC 10-20 Abnormal NONE SEEN [facility] Comment on above: Performed By: #### P TT, PT #### [facility] [address] [place] [address] Dr. Todd Moreno ESTROGENon 10-20-2021 Estrogens, Total 68 pg/mL Normal [facility] Comment on above: Result Comment: Prep ubertal < 40 Female Cycle: 1-10 Days 16 - 328 11-20 Days 34 - 501 21-30 Days 48 - 350 Post-Menopausal 40 - 244 Performed By: #### P TT, PT #### [facility] [address] [address] [address] Todd Moreno ESTRADIOLon 10-16-2021 Estradiol 62.1 pg/mL Normal [facility] Comment on above: Result Comment: Adul t Female: Follicular phase 12.5 - 166.0 Ovulation phase 85.8 - 498.0 Luteal phase 43.8 - 211.0 Postmenopausal <6.0 - 54.7 1st trimester 215.0 - >4300.0 [facility] ECLIA methodology Performed By: #### E STRADI #### [facility] [address] [address] [address] Todd Moreno FSHon 10-16-2021 FSH 5.6 mIU/mL Normal [facility] Comment on above: Result Comment: Adul t Female: Follicular phase 3.5 - 12.5 Ovulation phase 4.7 - 21.5 Luteal phase 1.7 - 7.7 Postmenopausal 25.8 - 134.8 Performed By: #### P TT, PT #### [facility] [address] [address] [address] Todd Moreno LUTEINIZING HORMONE (LH)on 0 10-16-2021 LH 12.1 mIU/mL Normal [facility] Comment on above: Result Comment: Adul t Female: Follicular phase 2.4 - 12.6 Ovulation phase 14.0 - 95.6 Luteal phase 1.0 - 11.4 Postmenopausal 7.7 - 58.5 Performed By: #### P TT, PT #### [facility] [address] [address] [address] Todd Moreno CBC AUTO DIFFon 10-15-2021 BASO # 0.0 103/ul Normal 0.0-0.1 [facility] Comment on above: Performed By: #### P TT, PT #### [facility] [address] [place] [address] Dr. Todd Moreno Basophils/100 WBC (Bld) 0.6 % Normal 0.2-2.0 [facility] Comment on above: Performed By: #### P TT, PT #### [facility] [address] [place] [address] Dr. Todd Moreno EO # 0.1 103/ul Normal 0.0-0.7 [facility] Comment on above: Performed By: #### P TT, PT #### [facility] [address] [place] [address] Dr. Todd Moreno Eosinophils/100 WBC (Bld) 2.1 % Normal 0.9-7.0 [facility] Comment on above: Performed By: #### P TT, PT #### [facility] [address] [place] [address] Dr. Todd Moreno Erythrocyte distribution width (RBC) [Ratio] 14.0 % Normal 11.0-15.0 [facility] Comment on above: Performed By: #### P TT, PT #### [facility] [address] [place] [address] Dr. Todd Moreno Hematocrit (Bld) [Volume fraction] 37.0 % Normal 36.0-48.0 [facility] Comment on above: Performed By: #### P TT, PT #### [facility] [address] [place] [address] Dr. Todd Moreno Hemoglobin (Bld) [Mass/Vol] 11.6 g/dL Critically low 12.0-16.0 [facility] Comment on above: Performed By: #### P TT, PT #### [facility] [address] [place] [address] Dr. Todd Moreno IG # 0.01 10e3/ul Normal 0.00-0.03 [facility] Comment on above: Performed By: #### P TT, PT #### [facility] [address] [place] [address] Dr. Todd Moreno IG % 0.2 % Normal 0.0-0.5 [facility] Comment on above: Performed By: #### P TT, PT #### [facility] [address] [place] [address] Dr. Todd Moreno LYMPH # 2.2 103/ul Normal 1.2-3.8 [facility] Comment on above: Performed By: #### P TT, PT #### [facility] [address] [place] [address] Dr. Todd Moreno Lymphocytes/100 WBC (Bld) 33.1 % Normal 20.5-60.0 [facility] Comment on above: Performed By: #### P TT, PT #### [facility] [address] [place] [address] Dr. Todd Moreno MANUAL DIFF REQ NO Normal [facility] Comment on above: Performed By: #### P TT, PT #### [facility] [address] [place] [address] Dr. Todd Moreno MCH (RBC) [Entitic mass] 26.3 pg Critically low 26.7-34.0 [facility] Comment on above: Performed By: #### P TT, PT #### [facility] [address] [place] [address] Dr. Todd Moreno MCHC (RBC) [Mass/Vol] 31.4 g/dL Normal 29.9-35.2 [facility] Comment on above: Performed By: #### P TT, PT #### [facility] [address] [place] [address] Dr. Todd Moreno MCV (RBC) [Entitic vol] 83.9 fL Normal 81.0-99.0 [facility] Comment on above: Performed By: #### P TT, PT #### [facility] [address] [place] [address] Dr. Todd Moreno MONO # 0.2 103/ul Critically low 0.3-0.[address] [facility] Comment on above: Performed By: #### P TT, PT #### [facility] [address] [place] [address] Dr. Todd Moreno Monocytes/100 WBC (Bld) 3.5 % Normal 1.7-12.0 [facility] Comment on above: Performed By: #### P TT, PT #### [facility] [address] [address] [address] Todd Moreno NEUT # 4.0 103/ul Normal 1.4-6.5 [facility] Comment on above: Performed By: #### P TT, PT #### [facility] [address] [address] [address] Todd Moreno Neutrophils/100 WBC (Bld) 60.5 % Normal 43.0-75.0 [facility] Comment on above: Performed By: #### P TT, PT #### [facility] [address] [address] [address] Todd Moreno Platelet mean volume (Bld) [Entitic vol] 10.6 fL Normal 9.5-13.5 [facility] Comment on above: Performed By: #### P TT, PT #### [facility] [address] [place] [address] Dr. Todd Moreno PLT 263 103/ul Normal 150-450 [facility] Comment on above: Performed By: #### P TT, PT #### [facility] [address] [place] [address] Dr. Todd Moreno RBC 4.41 106/ul Normal 4.20-5.40 [facility] Comment on above: Performed By: #### P TT, PT #### [facility] [address] [address] [address] Todd Moreno WBC 6.6 103/ul Normal 4.0-11.0 [facility] Comment on above: Performed By: #### P TT, PT #### [facility] [address] [place] [address] Dr. Todd Moreno FREE T4on 10-15-2021 Free T4 [Mass/Vol] 1.05 ng/dL Normal 0.76-1.46 [facility] Comment on above: Performed By: #### P TT, PT #### [facility] [address] [address] [address] Todd Moreno PROTIMEon 10-15-2021 INR Coag (PPP) [Relative time] 1.02 {INR} Normal [facility] Comment on above: Performed By: #### P TT, PT #### [facility] [address] [place] [address] Dr. Todd Moreno INR GUIDELINES SEE BELOW Normal [facility] Comment on above: Result Comment: RAMÓN RED INR: 2.0 - 3.0 CONDITIONS NOT LISTED BELOW 2.5 - 3.5 FOR PROSTHETIC HEART VALVE REPLACEMENT 2.5 - 3.5 RECURRENT THROMBOSIS Performed By: #### P TT, PT #### [facility] [address] [place] [address] Dr. Todd Moreno PT Coag (PPP) [Time] 11.0 s Normal 9.0-11.6 [facility] Comment on above: Performed By: #### P TT, PT #### [facility] [address] [place] [address] Dr. Todd Moreno PTTon 10-15-2021 aPTT Coag (Bld) [Time] 32.4 s Normal 22.3-36.2 [facility] Comment on above: Performed By: #### P TT, PT #### [facility] [address] [place] [address] Dr. Todd Moreno TSHon 10-15-2021 TSH 1.777 uIU/mL Normal 0.358-3.740 [facility] Comment on above: Performed By: #### P TT, PT #### [facility] [address] [place] [address] Dr. Todd Moreno PAP ACOG PANEL 2: 30 to 65on 10-10-2021 . . Normal [facility] Comment on above: Result Comment: Perf ormed at: WB Performed By: #### [id number] #### [facility] [address] [place] [address] Dr. Todd Moreno Age Gdln ACOG Testing - [facility] Comment on above: Performed By: #### [id number] #### [facility] [address] [place] [address] Dr. Todd Moreno DIAGNOSIS: Comment Normal [facility] Comment on above: Result Comment: NEGA TIVE FOR INTRAEPITHELIAL LESION OR MALIGNANCY. Performed at: WB Performed By: #### [id number] #### [facility] [address] [place] [address] Dr. Todd Moreno HPV Aptima Negative Normal Negative [facility] Comment on above: Result Comment: This nucleic acid amplification test detects fourteen high-risk HPV types (16,18,31,33,35,39,45,51,52,56,58,59,66,68) without differentiation. Performed at: =G Performed By: #### [id number] #### [facility] [address] [place] [address] Dr. Todd Moreno Methodology: Comment Normal [facility] Comment on above: Result Comment: This liquid based ThinPrep(R) pap test was screened with the use of an image guided system. Performed at: WB Performed By: #### [id number] #### [facility] [address] [place] [address] Dr. Todd Moreno Note: Comment Normal [facility] Comment on above: Result Comment: The Pap smear is a screening test designed to aid in the detection of premalignant and malignant conditions of the uterine cervix. It is not a diagnostic procedure and should not be used as the sole means of detecting cervical cancer. Both false-positive and false-negative reports do occur. . Performed at: WB Performed By: #### [id number] #### [facility] [address] [place] [address] Dr. Todd Moreno Performed by: Comment Normal [facility] Comment on above: Result Comment: Magalie Lemus, Contact Lens Manufacturer (ASCP) Performed at: WB Performed By: #### [id number] #### [facility] [address] [place] [address] Dr. Todd Moreno Specimen adequacy: Comment Normal [facility] Comment on above: Result Comment: Sati sfactory for evaluation. Endocervical and/or squamous metaplastic cells (endocervical component) are present. Performed at: WB Performed By: #### [id number] #### [facility] [address] [place] [address] Dr. Todd Moreno COVID-19 Antigenon 2 COVID-19 [...] its performance Corinne Disclaimer characteristic determined by [facility] and Corinne Disclaimer validated at [facility]. This Corinne Disclaimer test has not [...] is terminated or revoked sooner. PERFORMED BY: [place] [address] PATHOLOGIST JACQUARD LOOM FIXER JONATHAN SHEPARD M.D. [facility] Comment on above: Performed By: #### S OFIANEG, COVID-19 CORINNE #### [facility] [address] [place] [address] HCG,Urineon 03-30-2021 Beta HCG ( test) Ql (U) Negative [facility] Comment on above: Result Comment: PERF ORMED BY: [place] [address] PATHOLOGIST JACQUARD LOOM FIXER JONATHAN SHEPARD M.D. Performed By: #### U HCG #### [facility] [address] [place] [address] Corinne Ag Negativeon 03-30-19 Corinne Ag Negative Negative Normal Negative [facility] Comment on above: Result Comment: This is a duplicate Corinne SARS Antigen (KAEL) result to be used for statistical tracking purpose only. PERFORMED BY: [place] [address] PATHOLOGIST JACQUARD LOOM FIXER JONATHAN SHEPARD M.D. Performed By: #### S OFNERIS, COVID-19 CORINNE #### [address] COVID-19 [facility] SARS-CoV-2 (COVID-19) RNA JESE+probe Ql (Unsp spec) Negative Normal Negative [facility] Comment on above: Order Comment: Healt hcare Worker?: N Result Comment: Testing for SARS-CoV-2 by RT-PCR This test was developed and its performance characteristics determined by [employer]) and validated at the [facility]. This test has not been FDA [...] is terminated or revoked sooner. PERFORMED BY: [place] [address] PATHOLOGIST JACQUARD LOOM FIXER JONATHAN SHEPARD M.D. Performed By: #### C OVID 19 [facility] #### [place] [id number] [facility] XR elbow LT 2Von 03-01-2021 XR elbow LT 2V [facility] [place] [address] [place] [address] XRay Report Signed Patient: Moira Almaguer MR#: [id number] : 1985 Acct:[id number] Age/Sex: 35 / F ADM Date: 03/01/21 [...] Valdez Mcwilliams M.D.03/01/2021 1:47 PM Dictation Location: [place] [address] Transcribed By: [facility] 03/01/21 1347 Dictated By: Valdez Mcwilliams DO 03/01/21 1344 Signed By: 03/01/21 1347 [facility] XR FOREARM LEFT 2 VIEWSon XR [...] are recommended in 7 to 10 days. [facility]/[employer] Workstation ID: [id number] Dictated by: MAR DAWSON on SunSep 08, 2020 11:41:42 PM EDT Transcribed by: SHERRILL SMYTH on SunSep 09, 2020 12:10:05 AM EDT Finalized by: MAR DAWSON on SunSep 09, 2020 12:16:26 AM EDT [facility] Comment on above: Order Comment: [...] on SunSep 08, 2020 11:42:00 PM EDT [facility] Comment on above: Order Comment: [...] [Ratio] 35.71 kg/m2 Iveth MCGRATH Work Phone: [facility] 03-25-2024 14:23-0500 Body weight 103.42 kg Iveth MCGRATH Work Phone: [facility] 03-25-2024 14:23-0500 Diastolic blood pressure 70 mm[Hg] Iveth Vacherie PA Work Phone: [facility] 03-25-2024 14:23-0500 Systolic blood pressure 108 mm[Hg] Iveth Hood PA Work Phone: [facility] 02-20-2024 11:40-0500 Body mass index (BMI) [Ratio] 34.68 kg/m2 Rogers James DO Work Phone: [facility] 02-20-2024 11:40-0500 Body weight 100.43 kg Rogers James DO Work Phone: [facility] 02-20-2024 11:40-0500 Diastolic blood pressure 70 mm[Hg] Rogers James DO Work Phone: [facility] 02-20-2024 11:40-0500 Systolic blood pressure 120 mm[Hg] Rogers James DO Work Phone: [facility] 02-07-2024 11:42-0500 Body mass index (BMI) [Ratio] 34.3 kg/m2 Iveth MCGRATH Work Phone: [facility] 02-07-2024 11:42-0500 Body weight 99.34 kg Iveth MCGRATH Work Phone: [facility] 02-07-2024 11:42-0500 Diastolic blood pressure 70 mm[Hg] Iveth MCGRATH Work Phone: [facility] 02-07-2024 11:42-0500 Systolic blood pressure 118 mm[Hg] Iveth MCGRATH Work Phone: [facility] 01-10-2024 10:44-0400 Body mass index (BMI) [Ratio] 33.89 kg/m2 Rogers James DO Work Phone: [facility] 01-10-2024 10:44-0400 Body weight 98.16 kg Rogers James DO Work Phone: [facility] 01-10-2024 10:44-0400 Diastolic blood pressure 74 mm[Hg] Rogers James DO Work Phone: [facility] 01-10-2024 10:44-0400 Systolic blood pressure 120 mm[Hg] Rogers James DO Work Phone: [facility] 12-13-2023 10:51-0400 Body mass index (BMI) [Ratio] 33.33 kg/m2 Rogers James DO Work Phone: [facility] 12-13-2023 10:51-0400 Body weight 96.53 kg Rogers James DO Work Phone: [facility] 12-13-2023 10:51-0400 Diastolic blood pressure 80 mm[Hg] Rogers James DO Work Phone: [facility] 12-13-2023 10:51-0400 Systolic blood pressure 126 mm[Hg] Rogers James DO Work Phone: [facility] 11-15-2023 10:14-0400 Body mass index (BMI) [Ratio] 33.11 kg/m2 Rogers James DO Work Phone: [facility] 11-15-2023 10:14-0400 Body weight 95.89 kg Rogers James DO Work Phone: [facility] 11-15-2023 10:14-0400 Diastolic blood pressure 78 mm[Hg] Rogers James DO Work Phone: [facility] 11-15-2023 10:14-0400 Systolic blood pressure 118 mm[Hg] Rogers James DO Work Phone: [facility] 03-01-2021 11:00-0500 Body height 170.18 cm Leandro Olexa Other [facility] Other 03-01-2021 11:00-0500 Body mass index (BMI) [Ratio] 30.07 kg/m2 Leandro Olexa Other [facility] Other 03-01-2021 11:00-0500 Body weight 87.09 kg Leandro Olexa Other [facility] Other Encounters Encounter Date Encounter Type Care [...] Start: 02-04-2024 End: 02-04-2024 ambulatory [facility] Start: 01-30-2024 End: 01-30-2024 ambulatory SRIDEVI FREITAS [facility] Start: 01-23-2024 End: 01-23-2024 Telephone encounter Emily Alfaro DO Work Phone: [facility] Start: 01-10-2024 End: 01-10-2024 Bamboo flowsheet Rogers James DO Work Phone: [facility] Start: 01-10-2024 End: 01-10-2024 Bamboo flowsheet Rogers James DO Work Phone: [facility] Start: 01-10-2024 End: 01-10-2024 flow sheet Rogers James DO Work Phone: [facility] Comment on above: Second trimester pre gnancy; 23 weeks gestation of Start: 01-10-2024 End: 01-10-2024 ambulatory ROGERS JAMES Not Available Start: 01-07-2024 End: 01-07-2024 ambulatory ROB GONZALES [facility] Start: 12-24-2023 End: 12-24-2023 ambulatory SRIDEVI FREITAS [facility] Start: 12-13-2023 End: 12-13-2023 Bamboo flowsheet Rogers James DO Work Phone: [facility] Start: 12-13-2023 End: 12-14-2023 Bamboo flowsheet Rogers James DO Work Phone: [facility] Start: 12-13-2023 End: 12-14-2023 External Result Encounter Rogers James DO Work Phone: [facility] External Department Unsolicited Start: 12-13-2023 End: 12-13-2023 ambulatory ROGERS JAMES Not Available Start: 12-13-2023 End: 12-13-2023 flow sheet Rogers James DO Work Phone: [facility] Comment on above: 19 weeks gestation o f ; Exposure to STD; Vaginal discharge; Elevated glucose Start: 11-15-2023 End: 11-15-2023 Bamboo flowsheet Rogers James DO Work Phone: [facility] Start: 11-15-2023 End: 11-15-2023 Bamboo flowsheet Rogers James DO Work Phone: [facility] Start: 11-15-2023 End: 11-15-2023 ambulatory ROGERS JAMES Not Available Start: 11-15-2023 End: 11-15-2023 flow sheet Rogers James DO Work Phone: [facility] Comment on above: Second [...] 03-01-2021 End: 03-01-2021 ambulatory Leandro Robles Other [facility] Other Start: 03-01-2021 Encounter for other preprocedural examination Leandro Robles [facility] Start: 03-01-2021 Office outpatient ne w 45 minutes Leandro Robles [facility] Start: 09-09-2020 End: 09-09-2020 Emergency department patient visit HUBER PIPER [facility] Procedures Date Procedure Procedure Detail Performing [...] Screening for malign ant neoplasm of cervix [facility] Healthcare Start: 10-05-2026 Screening for malign ant neoplasm of cervix [facility] Start: 04-09-2024 End: 04-09-2024 Patient encounter procedure 04/09/2024 1:30 PM EST Routine [facility] [address] [place] [id number] Rogers Ramirez, DO [address] [place] [address] [facility] Start: 03-24-2024 End: 03-24-2024 Patient encounter procedure 03/24/2024 11:20 AM EST Routine [facility] [address] [place], [place] [address] [address] Iveth Hood PA [address] [place] [address] [facility] Start: 03-10-2024 End: 03-10-2025 [...] 9:30 AM EST Routine [facility] [address] [place] [address] [place] [phone] Rogers Ramirez, DO [address] [place] [address] [facility] Start: 02-20-2024 End: 02-19-2025 CBC panel - Blood by Automated count CBC Lab Routine Diabetes mellitus screening Expected: 02/20/2024 (Approximate), Expires: 02/19/2025 [facility] Work Phone: Comment on above: Expected: 02/20/2024 (Approximate), Expires: 02/19/2025 Start: 02-20-2024 End: 02-20-2024 Patient encounter procedure 02/20/2024 11:00 AM EST Routine [facility] [address] [place] [phone] Rogers Ramirez DO [address] [place] [address] [facility] Start: 02-07-2024 End: 02-06-2025 US for US OB SCAN FOR GROWTH Imaging Routine size consistent with dates during in second trimester Expected: 02/07/2024 (Approximate), Expires: 02/06/2025 [facility] Work Phone: Comment on above: Expected: 02/07/2024 (Approximate), Expires: 02/06/2025 Start: 02-07-2024 End: 02-07-2024 Patient encounter procedure 02/07/2024 11:20 AM EST Routine [facility] [address] [place] [phone] Iveth Hood PA [address] [place] [address] [facility] Start: 01-10-2024 End: 01-10-2024 Patient encounter procedure [facility] Comment on above: Arrived Start: 12-17-2023 End: 12-17-2023 Professional / ancillary services management 12/17/2023 8:00 AM EDT Ancillary Procedure [facility] [address] [place] [phone] [facility] Start: 12-13-2023 End: 01-12-2024 Alpha fetoprotein, maternal Alpha fetoprotein, maternal Lab Routine 19 weeks gestation of Expected: 12/13/2023 (Approximate), Expires: 01/12/2024 [facility] Comment on above: Expected: 12/13/2023 (Approximate), Expires: 01/12/2024 Start: 12-13-2023 End: 12-13-2023 Patient encounter procedure 12/13/2023 10:10 AM EDT Routine [facility] [address] [place] [phone] Rogers Ramirez, DO [address] [place] [address] [facility] Start: 11-18-2023 Influenza vaccination Influenza Vacc ine (#1) [facility] Start: 11-15-2023 End: 11-14-2024 Measurement of glucose 1 hour after glucose challenge for glucose tolerance test Glucose tolerance, 1 hour Lab Routine Diabetes mellitus screening Expected: 11/15/2023 (Approximate), Expires: 11/14/2024 [facility] Work Phone: Comment on above: Expected: 11/15/2023 (Approximate), Expires: 11/14/2024 Start: 11-15-2023 End: 11-14-2024 US for US OB ANATOMY SINGLE W US OB CERVICAL LENGTH Imaging Routine Second trimester History of gestational diabetes Screening, , for anatomic survey Expected: 11/15/2023 (Approximate), Expires: 11/14/2024 [facility] Comment on above: Expected: 11/15/2023 (Approximate), Expires: 11/14/2024 Start: 11-15-2023 End: 11-15-2023 Patient encounter procedure 11/15/2023 9:50 AM EDT Routine [facility] [address] [place] [phone] Rogers Ramirez, DO [address] [place] [address] [facility] CHLAMYDIA TRACHOMATI S (GENITO/STI) CHLAMYDIA TRACHOMATIS (GENITO/STI) Lab Routine Exposure to STD Ordered: 12/13/2023 [facility] Comment on above: Ordered: 12/13/2023 Hemoglobin A1c/Hemoglobin.total in Blood Hemoglobin A1c Lab Routine Diabetes mellitus screening Ordered: 02/20/2024 [facility] Comment on above: Ordered: 02/20/2024 Neisseria gonorrhoea e DNA [Presence] in Unspecified specimen by JESE with probe detection Neisseria gonorrhea DNA probe, direct Lab Routine Exposure to STD Ordered: 12/13/2023 [facility] Comment on above: Ordered: 12/13/2023 SURESWAB(R) ADVANCED VAGINITIS PLUS, TMA SURESWAB(R) ADVANCED VAGINITIS PLUS, TMA Pathology and Cytology Routine Vaginal discharge Ordered: 12/13/2023 [facility] Healthcare Work Phone: Comment on above: Ordered: 12/13/2023 Immunizations Immunization Date Immunization Notes Care Provider [facility] 12-26-2016 influenza virus vacc ine, unspecified formulation Iveth MCGRATH Work Phone: [facility] Healthcare Payers Date Payer Category Payer Private Health Insurance [id number] 2021 Private Health Insurance [employer] [id number] 2021 Unknown FRONTPATH FRONTP ATH [id number] 2021-Present [phone] [address] [id number] 2019 Unknown [id number] 1985 Unknown [id number] 2.16.840.1.334379.3.579.2. 902 1986 Unknown [id number] 2.16.840.1.013132.3.579.2. 593 1986 Unknown [id number] 2.16.840.1.404694.3.579.2. 593 1986 Unknown [id number] 2.16.840.1.537803.3.579.2. 593 1986 Unknown [id number] 2.16.840.1.570040.3.579.2. 59 1986 Unknown [id number] 2.16.840.1.146657.3.579.2. 593 1986 Unknown [id number] 2.840.1.430586.3.579.2. 59 1986 Unknown [id number] 2..840.1.375027.3.579.2. 1285 1986 Unknown [id number] 2.840.1.441764.3.579.2. 1285 1986 Unknown [id number] 2.840.1.128587.3.579.2. 1285 1986 Unknown [id number] 2.840.1.105351.3.579.2. 1285 1986 Unknown [id number] 2.840.1.941274.3.579.2. 1258 1986 Unknown [id number] .840.1.850608.3.579.2. 1258 1986 Unknown [id number] 2.840.1.647469.3.579.2. 1258 1986 Unknown [id number] .840.1.452274.3.579.2. 1258 1986 Unknown [id number] 2.840.1.524267.3.579.2. 1258 1986 Unknown [id number] 2.16.840.1.407122.3.579.2. 1258 1986 Unknown [id number] 2.16.840.1.853677.3.579.2. 1258 1986 Unknown [id number] 2.16840.1.136664.3.579.2. 1258 1986 Unknown [id number] 2.16.840.1.354150.3.579.2. 1259 1959 Self-pay 1959 Unknown [id number] 1959 Unknown [id number] 1959 Unknown [id number] Unknown [id number] 2.16.840.1.741382.3.579.2. 593 Social History Date Type Detail Facility Start: 10-15-2022 End: 02-05-2023 Sex Assigned At [facility] Start: 02-12-2023 Tobacco smoking status VAIS Ex-smoke r [facility] End: 08-19-2011 History [...] to any clubs or organizations such as yarsani groups, unions, fraternal or athletic groups, or [...] Gender identity Identifies as female gender (finding) [facility] Clinical Notes 03-01-2021 to 03-25-2024 RAMILA [...] Current Outpatient Medications Medication Instructions Continuous Glucose Talent Program Manager ([employer] Adriana 2 [place]) device 1 Device, Does not apply, 4 [...] Missed period 09/15/2022 Moderate recurrent major depression (CMS/[facility]) 09/15/2022 Other chronic pain 09/15/2022 Radicular pain 09/15/2022 Vitamin D deficiency 09/15/2022 History of miscarriage 06/22/2023 Positive urine test 06/22/2023 23 weeks gestation of 01/10/2024 32 weeks gestation of 03/10/2024 Third trimester 03/10/2024 34 weeks gestation of 03/25/2024 Resolved Ambulatory Problems Diagnosis Date Noted No Resolved Ambulatory Problems Past Medical History: Diagnosis Date ADHD (attention deficit hyperactivity disorder) ([facility]) ADHD (attention deficit hyperactivity disorder) ([facility]) Ankle pain, left Anxiety with depression [...] Date ADHD (attention deficit hyperactivity disorder) ([facility]) ADHD (attention deficit hyperactivity disorder) ([facility]) Ankle pain, left Anxiety with depression [...] nursing note reviewed. Exam conducted with a medical case worker present. Vitals: Estimated body mass index is [...] Belen Oconnell LPN on behalf of: RAMILA Johsi documented in this encounter [facility] 03-10-2024 History of Presen t illness Narrative Reason for Appointment: Patient ID: Moira Starr is a 38 y.o. female who presents for Routine Visit Patient presents today for Return OB appointment. MEDICATIONS Current Outpatient Medications Medication Instructions Continuous Glucose Talent Program Manager ([employer] FetchStyle Adriana 2 [place]) device 1 Device, Does not apply, 4 times daily MV-Min-Fe Fum-FA-DHA ( 1 PO) Take by mouth. saccharomyces boulardii (FLORASTOR) 250 mg, 2 times daily ALLERGIES Allergies Allergen Reactions Sertraline Other Flat emotions Other Reaction(s): decreased emotional lability PROBLEMS Active Ambulatory Problems Diagnosis Date Noted Attention deficit hyperactivity disorder (ADHD) ([facility]) 09/15/2022 Cervicalgia 09/15/2022 Chronic fatigue 09/15/2022 Chronic tension-type headache, not intractable 09/15/2022 Generalized anxiety disorder ([facility]/HCC) 09/15/2022 HPV (human papilloma virus) infection 09/15/2022 Large breasts 09/15/2022 LGSIL on Pap smear of cervix 09/15/2022 Migraine with aura and without status migrainosus, not intractable ([facility]) 09/15/2022 Missed period 09/15/2022 Moderate recurrent major depression ([facility]) 09/15/2022 Other chronic pain 09/15/2022 Radicular pain 09/15/2022 Vitamin D deficiency 09/15/2022 History of miscarriage 06/22/2023 Positive urine test 06/22/2023 23 weeks gestation of 01/10/2024 32 weeks gestation of 03/10/2024 Third trimester 03/10/2024 Resolved Ambulatory Problems Diagnosis Date Noted No Resolved Ambulatory Problems Past Medical History: Diagnosis Date ADHD (attention deficit hyperactivity disorder) ([facility]) ADHD (attention deficit hyperactivity disorder) ([facility]) Ankle pain, left Anxiety with depression [...] Date ADHD (attention deficit hyperactivity disorder) ([facility]) ADHD (attention deficit hyperactivity disorder) ([facility]) Ankle pain, left Anxiety with depression [...] Rogers Ramirez DO documented in this encounter [facility] 02-20-2024 History of Presen t illness Narrative Reason for Appointment: Patient ID: Moira Starr is a 38 y.o. female who presents for Routine Visit Patient presents today for Return OB appointment. MEDICATIONS Current Outpatient Medications Medication Instructions Continuous Glucose Talent Program Manager ([employer] Adriana 2 [place]) device 1 Device, Does not apply, 4 [...] Rogers Ramirez DO documented in this encounter [facility] 02-07-2024 History of Presen t illness Narrative Reason for Appointment: Patient ID: Moira Starr is a 38 y.o. female who presents for Routine Visit Patient presents today for Return OB appointment. MEDICATIONS Current Outpatient Medications Medication Instructions Continuous Glucose Talent Program Manager (FreeStyle Adriana 2 [place]) device 1 Device, Does not apply, 4 times daily ergocalciferol (VITAMIN D2) 1.25 mg, Oral, Weekly MV-Min-Fe Fum-FA-DHA ( 1 PO) Oral saccharomyces boulardii (FLORASTOR) 250 mg, Oral, 2 times daily ALLERGIES Allergies Allergen Reactions Sertraline Other Flat emotions Other Reaction(s): decreased emotional lability PROBLEMS Active Ambulatory Problems Diagnosis Date Noted Attention deficit hyperactivity disorder (ADHD) (CMS/[facility]) 09/15/2022 Cervicalgia 09/15/2022 Chronic fatigue 09/15/2022 [...] disorder) (CMS/HCC) ADHD (attention deficit hyperactivity disorder) ([facility]) Ankle pain, left Anxiety with depression [...] Date ADHD (attention deficit hyperactivity disorder) ([facility]) ADHD (attention deficit hyperactivity disorder) ([facility]) Ankle pain, left Anxiety with depression [...] of: RAMILA Joshi documented in this encounter [facility] 01-23-2024 Telephone encount er Note Endocrinology [...] we will have to put her with SMT MACHINE OPERATOR of her choice (since she would be a returning Angelina pt) to establish care. [facility] 01-23-2024 Miscellaneous Notes Formattin g of [...] we will have to put her with SMT MACHINE OPERATOR of her choice (since she would be a returning Angelina pt) to establish care. documented in this encounter [facility] 01-10-2024 History of Presen t illness Narrative Reason for Appointment: Patient ID: Moira Starr is a 38 y.o. female who presents for Routine Visit Patient presents today for Return OB appointment. MEDICATIONS Current Outpatient Medications Medication Instructions Continuous Glucose Talent Program Manager ([employer] Adriana 2 [place]) device 1 Device, Does not apply, 4 [...] Noted Attention deficit hyperactivity disorder (ADHD) ([facility]) 09/15/2022 Cervicalgia 09/15/2022 Chronic fatigue 09/15/2022 Chronic tension-type headache, not intractable 09/15/2022 Generalized anxiety disorder ([facility]) 09/15/2022 HPV (human papilloma virus) infection 09/15/2022 Large breasts 09/15/2022 LGSIL on Pap smear of cervix 09/15/2022 Migraine with aura and without status migrainosus, not intractable ([facility]) 09/15/2022 Missed period 09/15/2022 Moderate recurrent major depression ([facility]) 09/15/2022 Other chronic pain 09/15/2022 Radicular pain 09/15/2022 Vitamin D deficiency 09/15/2022 History of miscarriage 06/22/2023 Positive urine test 06/22/2023 Resolved Ambulatory Problems Diagnosis Date Noted No Resolved Ambulatory Problems Past Medical History: Diagnosis Date ADHD (attention deficit hyperactivity disorder) ([facility]) ADHD (attention deficit hyperactivity disorder) ([facility]) Ankle pain, left Anxiety with depression [...] Date ADHD (attention deficit hyperactivity disorder) ([facility] [facility]) ADHD (attention deficit hyperactivity disorder) ([facility]) Ankle pain, left Anxiety with depression [...] nursing note reviewed. Exam conducted with a medical case worker present. Vitals: Estimated body mass index is [...] Rogers Ramirez DO documented in this encounter [facility] 12-13-2023 History of Presen t illness Narrative Reason for Appointment: Patient ID: Moira Starr is a 38 y.o. female who presents for Routine Visit and STI Screening Patient presents today for Return OB appointment. MEDICATIONS Current Outpatient Medications Medication Instructions Continuous Glucose [employer]ent Program [employer] ([employer] [address] [place]) device 1 Device, Does not apply, 4 [...] nursing note reviewed. Exam conducted with a medical case worker present. Vitals: Estimated body mass index is [...] Rogers Ramirez DO documented in this encounter [facility] 11-15-2023 History of Presen t illness [...] Noted Attention deficit hyperactivity disorder (ADHD) ([facility]) 09/15/2022 Cervicalgia 09/15/2022 Chronic fatigue 09/15/2022 Chronic tension-type headache, not intractable 09/15/2022 Generalized anxiety disorder ([facility]/HCC) 09/15/2022 HPV (human papilloma virus) infection 09/15/2022 Large breasts 09/15/2022 LGSIL on Pap smear of cervix 09/15/2022 Migraine with aura and without status migrainosus, not intractable (CMS/HCC) 09/15/2022 Missed period 09/15/2022 Moderate recurrent major depression (HCC) ([facility]) 09/15/2022 Other chronic pain 09/15/2022 Radicular pain 09/15/2022 Vitamin D deficiency 09/15/2022 History of miscarriage 06/22/2023 Positive urine test 06/22/2023 Resolved Ambulatory Problems Diagnosis Date Noted No Resolved Ambulatory Problems Past Medical History: Diagnosis Date ADHD (attention deficit hyperactivity disorder) ([facility]) ADHD (attention deficit hyperactivity disorder) ([facility]) Ankle pain, left Anxiety with depression [...] Date ADHD (attention deficit hyperactivity disorder) ([facility]) ADHD (attention deficit hyperactivity disorder) ([facility]) Ankle pain, left Anxiety with depression [...] or undercooked meat, and stay away from [id number]. Patient has been consulted regarding any [...] Iveth Hood PA-C documented in this encounter [facility] 03-01-2021 Evaluation note Encounter Date Diagnosis [...] M24.022) Feb, Pre-op exam (ICD-10 - Z01.818) [employer] Other Evaluation note* Diagnosis Second trimester state, [...] Reported* Type Description Date Medical History ADHD [employer] Other Summary Purpose Family History No Family [...] DATE CREATED AUTHOR AUTHOR'S ORGANIZ ATION 10/06/2021 [facility] DATE CREATED AUTHOR AUTHOR'S ORGANIZ ATION 06/08/2022 [facility] DATE CREATED AUTHOR AUTHOR'S ORGANIZ ATION 02/06/2024 [facility] DATE CREATED AUTHOR AUTHOR'S ORGANIZ ATION 03/31/2024 [facility] d[facility] Specialists EPIC REASON FOR VISIT (unrecogniz ed section and content) Reason Comments Routine Visit Reason Comments Routine Visit STI Screening Care Teams (unrecognized sec tion and content) Orthotist/Prosthetist Relationship Specialty Start Date End Date Emily Alfaro DO [address] [place] [address] PCP - General Family Medicine 09/14/22 Orthotist/Prosthetist Relationship Specialty Start Date End Date Emily Alfaro DO [address] [place] [address] PCP - General Family Medicine 09/14/22 Orthotist/Prosthetist Relationship Specialty Start Date End Date Emily Alfaro DO [address] [place] [address] PCP - General Family Medicine 09/14/22 Orthotist/Prosthetist Relationship Specialty Start Date End Date Emily Alfaro DO [address] [place] [address] PCP - General Family Medicine 09/14/22 Orthotist/Prosthetist Relationship Specialty Start Date End Date Emily Alfaro DO [address] [place] [address] PCP - General Family Medicine 09/14/22 Orthotist/Prosthetist Relationship Specialty Start Date End Date Emily Alfaro DO [address] [place] [address] PCP - General Family Medicine 09/14/22 Orthotist/Prosthetist Relationship Specialty Start Date End Date Emily Alfaro DO [address] [place] [address] PCP - General Family Medicine 09/14/22 Orthotist/Prosthetist Relationship Specialty Start Date End Date Emily Alfaro DO [address] [place] [address] PCP - General Family Medicine 09/14/22 Orthotist/Prosthetist Relationship Specialty Start Date End Date Emily Alfaro DO [address] [place] [address] PCP - General Family Medicine 09/14/22 Orthotist/Prosthetist Relationship Specialty Start Date End Date Emily Alfaro DO [address] [place] [address] PCP - General Family Medicine 09/14/22 Orthotist/Prosthetist Relationship Specialty Start Date End Date Emily Alfaro DO [address] [place] [address] PCP - General Family Medicine 09/14/22 Orthotist/Prosthetist Relationship Specialty Start Date End Date Emily Alfaro DO [address] [place] [address] PCP - General Family Medicine 09/14/22 FOR [...] PRIMARY CLINICAL RECORDS. [facility] [employer] [facility]. provides no warranty or guarantee of the accuracy or completeness of information in this document.
== END 2024-04-09 08:13 | disposition home or self-care (01) ==
LOC: LAB 08:12
PROVIDERS: PCP Family Medicine; Visit Provider Obstetrics & Gynecology
DX: Z34.93 Encounter for supervision of normal pregnancy, unspecified, third trimester (principal)
CPT/HCPCS: 36415; 87081

== ENCOUNTER 2024-04-10 01:19 | Outpatient (OUT) | payer OTHER, SELFPAY ==
--- OUTSIDE RECORDS SUMMARY | 2024-04-10 01:24 | XMS_ITS | CCD ---
Author Organization [facility] CliniSyhi Care Team Providers Care Booth Cleaner Name Role Phone HUBER LUNDBERG Attending Unavailable [...] Unavailable JAMES ., DR MCCLOUD Admitting Unavailable [place], DR CARIDAD [employer] Unavailable JAMES ., [...] Attending Unavailable JAMES, ROGERS Attending Unavailable JAMES, ROGESR Attending Unavailable JAMES, ROGERS Attending Unavailable ERWINIVETH BARNES Attending Unavailable JAMES, ROGERS Attending Unavailable JAMES, ROGERS Attending Unavailable ERWIN, IVETH Attending Unavailable Allergies Allergy Classification Reported Allergen(s) [...] Orally Twice a day Active Continuous Glucose Door Glass Installer (FreeStyle Adriana 2 [place]) device (20 sources) Start: 11-15-2023 Continuous Glucose Door Glass Installer (FreeStyle Adriana 2 [place]) device Indications: History of gestational diabetes 1 Device in the morning and 1 Device at noon and 1 Device in the evening and 1 Device before bedtime. 1 each 11/15/2023 Active Continuous Glucose Sensor (FreeStyle Adriana 2 Plus Sensor) misc (6 sources) Start: 03-25-2024 End: 04-24-2024 Continuous Glucose Sensor (FreeStyle Adriana 2 Plus Sensor) misc Indications: History of gestational diabetes 1 Units every 14 (fourteen) days 2 each 3 03/25/2024 04/24/2024 Active Start: 03-10-2024 End: 03-24-2024 Continuous Glucose Sensor (F reeStyle Adriana 2 [...] every week ergocalciferol (Vitamin D2) 1.25 MG (71797 UT) capsule Indications: Vitamin D deficiency Take [...] polysaccharide iron complex 391 mg oral capsule (6 sources) Start: 03-10-2024 End: 04-09-2024 take 1 [...] Device 8 12/13/2023 01/12/2024 Start: 12-13-2023 End: 10-26-2024 Continuous Glucose Sensor [facility] [place] Indications: Elevated glucose 1 Device every 14 [...] cervix] Onset: 10-05-2021 Episodic Residual codes; unclassified (19 sources) Gestation period, 23 weeks; Translations: [23 [...] of ] 12-13-2023 Episodic Residual codes; unclassified (9 sources) Gestation period, 32 weeks; Translations: [32 weeks gestation of ] Onset: 03-10-2024 03-10-2024 Episodic Residual codes; unclassified (5 sources) Gestation period, 34 weeks; Translations: [34 [...] UA Negative Negative - 4(70) +++ mg/dL [facility] Blood, UA Negative Negative - 50 Andrew/mcL [facility] Clarity, UA Clear [facility] Color, UA Yellow [facility] Glucose, UA Negative Negative - 2000(110) ++++ mg/dL [facility] Interpretation and review of laboratory results Abnormal [facility] Ketones, UA Positive Negative - 160(16) ++++ mg/dL [facility] Comment on above: trace Leukocytes, UA Trace Negative - 500+++ Lore/mcL [facility] Nitrite, UA Negative Negative - Positive [facility] pH, UA 6.5 5 - 9 [facility] Protein, UA Positive Negative - 2000(20) ++++ mg/dL [facility] Comment on above: 30mg Spec Grav, UA 1.025 1 - 1.03 [facility] Urobilinogen, UA 1.0 0.2 - 12 mg/dL [facility] Urinalysis macro (dipstick) panel (U)on 03-10-2024 Bilirubin, UA Positive Negative - 4(70) +++ mg/dL [facility] Comment on above: small Blood, UA Negative Negative - 50 Andrew/mcL [facility] Clarity, UA Clear [facility] Color, UA Yellow [facility] Glucose, UA Negative Negative - 2000(110) ++++ mg/dL [facility] Interpretation and review of laboratory results Abnormal [facility] Ketones, UA Positive Negative - 160(16) ++++ mg/dL [facility] Comment on above: trace Leukocytes, UA Negative Negative - 500+++ Lore/mcL [facility] Nitrite, UA Negative Negative - Positive [facility] pH, UA 6 5 - 9 [facility] Protein, UA Positive Negative - 1999(20) ++++ mg/dL [facility] Comment on above: 30 Spec Grav, UA 1.025 1 - 1.03 [facility] Urobilinogen, UA 1.0 0.2 - 12 mg/dL [facility] MLR HEMOGLOBIN A1Con 024 Glucose [Mass/Vol] 114 mg/dL [facility] HbA1c (Bld) [Mass fraction] 5.6 % 4.5 - 6.2 % [facility] Comment on above: ADA RECOMMENDED LIMI T 4.0 - 6.0 ADA THERAPEUTIC TARGET < 7.0 ACTION SUGGESTED > 7.0 [facility] Urinalysis macro (dipstick) panel (U)on 02-20-2024 Bilirubin, UA Positive Negative - 4(70) +++ mg/dL [facility] Comment on above: small Blood, UA Negative Negative - 50 Andrew/mcL [facility] Clarity, UA Clear [facility] Color, UA Yellow [facility] Glucose, UA Negative Negative - 1999(110) ++++ mg/dL [facility] Interpretation and review of laboratory results Abnormal [facility] Ketones, UA Positive Negative - 160(16) ++++ mg/dL [facility] Comment on above: trace Leukocytes, UA Negative Negative - 500+++ Lore/mcL [facility] Nitrite, UA Negative Negative - Positive [facility] pH, UA 6 5 - 9 [facility] Protein, UA Trace Negative - 1999(20) ++++ mg/dL [facility] Spec Grav, UA 1.03 1 - 1.03 [facility] Urobilinogen, UA 1.0 0.2 - 12 mg/dL [facility] Urinalysis macro (dipstick) panel (U)on 01-10-2024 Bilirubin, UA Negative Negative - 4(70) +++ mg/dL [facility] Blood, UA Negative Negative - 50 Andrew/mcL [facility] Clarity, UA Clear [facility] Color, UA Yellow [facility] Glucose, UA Negative Negative - 2000(110) ++++ mg/dL [facility] Interpretation and review of laboratory results Normal [facility] Ketones, UA Negative Negative - 160(16) ++++ mg/dL [facility] Leukocytes, UA Negative Negative - 500+++ Lore/mcL [facility] Nitrite, UA Negative Negative - Positive [facility] pH, UA 5.5 5 - 9 [facility] Protein, UA Negative Negative - 1999(20) ++++ mg/dL [facility] Spec Grav, UA 1.02 1 - 1.03 [facility] Urobilinogen, UA 1.0 0.2 - 12 mg/dL [facility] URETHRITIS/DISCHARGE PLUS VA GINITIS (HTRX)on 12-14-2023 ATOPOBIUM VAGINAE 0.000 [facility] ATOPOBIUM VAGINAE Not detected [facility] BVAB 2,3 (BACTERIAL VAGINOSIS ASSOCIATED BACTERIA 2, 3); MOBILUNCUS SPP 26.743 Abnormal [facility] BVAB 2,3 (BACTERIAL VAGINOSIS ASSOCIATED BACTERIA 2, 3); MOBILUNCUS SPP Detected Abnormal [facility] TATYANA ALBICANS, PARAPSILOSIS, TROPICALIS 0.000 [facility] TATYANA ALBICANS, PARAPSILOSIS, TROPICALIS Not detected [facility] TATYANA GLABRATA 0.000 [facility] TATYANA GLABRATA Not detected [facility] TATYANA KRUSEI 0.000 [facility] TATYANA KRUSEI Not detected [facility] CHLAMYDIA TRACHOMATIS 0.000 [facility] CHLAMYDIA TRACHOMATIS Not detected [facility] GARDNERELLA VAGINALIS 0.000 [facility] GARDNERELLA VAGINALIS Not detected [facility] Interpretation and review of laboratory results Abnormal [facility] MEGASPHAERA (TYPES 1, 2) 0.000 [facility] MEGASPHAERA (TYPES 1, 2) Not detected [facility] MYCOPLASMA GENITALIUM 0.000 [facility] MYCOPLASMA GENITALIUM Not detected [facility] NEISSERIA GONORRHOEAE 0.000 [facility] NEISSERIA GONORRHOEAE Not detected [facility] TRICHOMONAS VAGINALIS 0.000 [facility] TRICHOMONAS VAGINALIS Not detected [facility] Urinalysis macro (dipstick) panel (U)on 12-13-2023 Bilirubin, UA Negative Negative - 4(70) +++ mg/dL [facility] Blood, UA Negative Negative - 50 Andrew/mcL [facility] Clarity, UA Clear [facility] Color, UA Yellow [facility] Glucose, UA Negative Negative - 1999(110) ++++ mg/dL [facility] Interpretation and review of laboratory results Abnormal [facility] Ketones, UA Positive Negative - 160(16) ++++ mg/dL [facility] Comment on above: trace Leukocytes, UA Negative Negative - 500+++ Lore/mcL [facility] Nitrite, UA Negative Negative - Positive [facility] pH, UA 6.5 5 - 9 [facility] Protein, UA Negative Negative - 1999(20) ++++ mg/dL [facility] Spec Grav, UA 1.025 1 - 1.03 [facility] Urobilinogen, UA 1.0 0.2 - 12 mg/dL [facility] Urinalysis macro (dipstick) panel (U)on 11-15-2023 Bilirubin, UA Negative Negative - 4(70) +++ mg/dL [facility] Blood, UA Negative Negative - 50 Andrew/mcL [facility] Clarity, UA Clear [facility] Color, UA Yellow [facility] Glucose, UA Negative Negative - 1999(110) ++++ mg/dL [facility] Interpretation and review of laboratory results Normal [facility] Ketones, UA Negative Negative - 160(16) ++++ mg/dL [facility] Leukocytes, UA Negative Negative - 500+++ Lore/mcL [facility] Nitrite, UA Negative Negative - Positive [facility] pH, UA 5.5 5 - 9 [facility] Protein, UA Negative Negative - 1999(20) ++++ mg/dL [facility] Spec Grav, UA 1.020 1 - 1.03 [facility] Urobilinogen, UA 1.0 0.2 - 12 mg/dL [facility] ALL CBC WITH AUTO DIFFon BASOPHILS ABSOLUTE AUTO 0.0 [facility] Basophils/100 WBC (Bld) 0.4 % 0.2 - 2.0 % [facility] Eosinophils/100 WBC (Bld) 3.0 % 0.9 - 7.0 % [facility] Erythrocyte distribution width (RBC) [Ratio] 16.1 % High 11.0 - 15.0 % [facility] Hematocrit (Bld) [Volume fraction] 36.3 % 36.0 - 48.0 % [facility] Hemoglobin (Bld) [Mass/Vol] 11.4 g/dL Low 12.0 - 16.0 g/dL [facility] IMMATURE GRANULOCYTES ABS AUTO 0.03 [facility] Immature granulocytes/100 WBC (Bld) 0.3 % 0.0 - 0.5 % [facility] Interpretation and review of laboratory results Abnormal [facility] LYMPHOCYTES ABSOLUTE AUTO 2.2 [facility] Lymphocytes/100 WBC (Bld) 23.6 % 20.5 - 60.0 % [facility] MCH (RBC) [Entitic mass] 26.0 pg Low 26.7 - 34.0 pg [facility] MCHC (RBC) [Mass/Vol] 31.4 g/dL 29.9 - 35.2 g/dL [facility] MCV (RBC) [Entitic vol] 82.9 fL 81.0 - 99.0 fL [facility] MONOCYTES ABSOLUTE AUTO 0.5 [facility] Monocytes/100 WBC (Bld) 5.1 % 1.7 - 12.0 % [facility] NEUTROPHILS ABSOLUTE AUTO 6.2 [facility] Neutrophils/100 WBC (Bld) 67.6 % 43.0 - 75.0 % [facility] Platelet mean volume (Bld) [Entitic vol] 11.0 fL 9.5 - 13.5 fL [facility] TBH EO # 0.3 [facility] TBH PLT [address] [facility] RBC 4.38 [facility] WBC 9.2 [facility] Cytology Cervical or vaginal smear or scraping studyon 03-08-2023 [facility] CHLAMYDIA/GONOCOCCUS JESE ( AB/URINE/PAPon 06-01-2022 Chlamydia trachomatis, JESE Negative Normal Negative [facility] Comment on above: Performed By: #### P TT, PT #### [facility] [address] [address] [address] Todd Moreno Neisseria gonorrhoeae, JESE Negative Normal Negative [facility] Comment on above: Performed By: #### P TT, PT #### [facility] [address], [place] [address] Dr. Todd Moreno VAGINITIS/VAGINOSIS DNA PROB Shaheed 06-01-2022 Tatyana species Negative Normal Negative [facility] Comment on above: Performed By: #### P TT, PT #### [facility] [address], [place] [address] Dr. Todd Moreno Gardnerella vaginalis Negative Normal Negative [facility] Comment on above: Performed By: #### P TT, PT #### [facility] [address] [place] [address] Dr. Todd Moreno Trichomonas vaginalis Negative Normal Negative [facility] Comment on above: Performed By: #### P TT, PT #### [facility] [address] [address] [address] Todd Moreno HEP B SURFACE ANTIGEN SCREEN on 03-22-2022 HBsAg Screen Negative Normal Negative [facility] Comment on above: Performed By: #### H BSANS #### [facility] [address] [place] [address] Dr. Todd Moreno HEPATITIS C VIRUS AB W/ REFL EX QUANTon 03-22-2022 HCV AB 0.1 s/co ratio Normal 0.0-0.[address] [facility] Comment on above: Performed By: #### P TT, PT #### [facility] [address] [place] [address] Dr. Todd Moreno Interpretation: Comment Normal [facility] Comment on above: Result Comment: Nega tive Not infected with HCV, unless recent infection is suspected or other evidence exists to indicate HCV infection. Performed By: #### P TT, PT #### [facility] [address] [place] [address] Dr. Todd Moreno HIV 1 AND 2 WITH REFLEXon HIV Screen 4th Generation wRfx Non-Reactive Normal Non Reactive [facility] Comment on above: Result Comment: HIV Negative HIV-1/HIV-2 antibodies and HIV-1 p24 antigen were NOT detected. There is no laboratory evidence of HIV infection. Performed By: #### H IV12 #### [facility] [address] [place] [address] Dr. Todd Moreno RPR QUANTon 03-22-2022 Rapid Plasma Reagin, Quant Non-Reactive Normal NonRea<1:1 [facility] Comment on above: Result [...] utilized, such as Treponema pallidum (Syphilis) Screening [place] (574734) or Rapid Plasma Reagin (RPR) Test With Reflex to Quantitative RPR and Confirmatory Treponema pallidum Antibodies (058837). Performed By: #### R PRQ #### [facility] [address] [place] [address] Dr. Todd Moreno RUBELLA AB IGGon 03-22-2022 Rubella Antibodies, IgG 5.11 index Normal Immune >0.99 [facility] Comment on above: Result Comment: Non- immune <0.90 Equivocal 0.90 - 0.99 Immune >0.99 Performed By: #### R PRQ #### [facility] [address] [place] [address] Dr. Todd Moreno CBC AUTO DIFFon 03-20-2022 BASO # 0.0 103/ul Normal 0.0-0.1 [facility] Comment on above: Performed By: #### P TT, PT #### [facility] [address] [place] [address] Dr. Todd Moreno Basophils/100 WBC (Bld) 0.3 % Normal 0.2-2.0 [facility] Comment on above: Performed By: #### P TT, PT #### [facility] [address] [place] [address] Dr. Todd Moreno EO # 0.1 103/ul Normal 0.0-0.7 [facility] Comment on above: Performed By: #### P TT, PT #### [facility] [address] [place] [address] Dr. Todd Moreno Eosinophils/100 WBC (Bld) 1.0 % Normal 0.9-7.0 [facility] Comment on above: Performed By: #### P TT, PT #### [facility] [address] [place] [address] Dr. Todd Moreno Erythrocyte distribution width (RBC) [Ratio] 14.4 % Normal 11.0-15.0 [facility] Comment on above: Performed By: #### P TT, PT #### [facility] [address] [place] [address] Dr. Todd Moreno Hematocrit (Bld) [Volume fraction] 38.2 % Normal 36.0-48.0 [facility] Comment on above: Performed By: #### P TT, PT #### [facility] [address] [place] [address] Dr. Todd Moreno Hemoglobin (Bld) [Mass/Vol] 12.2 g/dL Normal 12.0-16.0 [facility] Comment on above: Performed By: #### P TT, PT #### [facility] [address] [place] [address] Dr. Todd Moreno IG # 0.03 10e3/ul Normal 0.00-0.03 [facility] Comment on above: Performed By: #### P TT, PT #### [facility] [address] [place] [address] Dr. Todd Moreno IG % 0.3 % Normal 0.0-0.5 [facility] Comment on above: Performed By: #### P TT, PT #### [facility] [address] [place] [address] Dr. Todd Moreno LYMPH # 1.9 103/ul Normal 1.2-3.8 [facility] Comment on above: Performed By: #### P TT, PT #### [facility] [address] [place] [address] Dr. Todd Moreno Lymphocytes/100 WBC (Bld) 19.0 % Critically low 20.5-60.0 [facility] Comment on above: Performed By: #### P TT, PT #### [facility] [address] [place] [address] Dr. Todd Moreno MANUAL DIFF REQ NO Normal [facility] Comment on above: Performed By: #### P TT, PT #### [facility] [address] [place] [address] Dr. Todd Moreno MCH (RBC) [Entitic mass] 26.1 pg Critically low 26.7-34.0 [facility] Comment on above: Performed By: #### P TT, PT #### [facility] [address] [place] [address] Dr. Todd Moreno MCHC (RBC) [Mass/Vol] 31.9 g/dL Normal 29.9-35.2 [facility] Comment on above: Performed By: #### P TT, PT #### [facility] [address] [address] [address] Todd Moreno MCV (RBC) [Entitic vol] 81.6 fL Normal 81.0-99.0 [facility] Comment on above: Performed By: #### P TT, PT #### [facility] [address] [address] [address] Todd Moreno MONO # 0.4 103/ul Normal 0.3-0.8 [facility] Comment on above: Performed By: #### P TT, PT #### [facility] [address] [place] [address] Dr. Todd Moreno Monocytes/100 WBC (Bld) 4.4 % Normal 1.7-12.0 [facility] Comment on above: Performed By: #### P TT, PT #### [facility] [address] [place] [address] Dr. Todd Moreno NEUT # 7.5 103/ul Critically high 1.4-6.5 [facility] Comment on above: Performed By: #### P TT, PT #### [facility] [address] [place] [address] Dr. Todd Moreno Neutrophils/100 WBC (Bld) 75.0 % Normal 43.0-75.0 [facility] Comment on above: Performed By: #### P TT, PT #### [facility] [address] [place] [address] Dr. Todd Moreno Platelet mean volume (Bld) [Entitic vol] 10.4 fL Normal 9.5-13.5 [facility] Comment on above: Performed By: #### P TT, PT #### [facility] [address] [place] [address] Dr. Todd Moreno PLT 302 103/ul Normal 150-450 [facility] Comment on above: Performed By: #### P TT, PT #### [facility] [address] [place] [address] Dr. Todd Moreno RBC 4.68 106/ul Normal 4.20-5.40 [facility] Comment on above: Performed By: #### P TT, PT #### [facility] [address] [place] [address] Dr. Todd Moreno WBC 10.1 103/ul Normal 4.0-11.0 [facility] Comment on above: Performed By: #### P TT, PT #### [facility] [address] [place] [address] Dr. Todd Moreno CULTURE URINEon 03-20-2022 CULTURE URINE Culture Observations : MODERATE GROWTH OF MIXED GENITAL LORA. NO POTENTIAL PATHOGENS SEEN. Normal [facility] Comment on above: Performed By: #### P TT, PT #### [facility] [address] [place] [address] Dr. Todd Moreno GLYCOHEMOGLOBIN A1Con 2022 ADA RECOMMENDATION SEE BELOW Normal [facility] Comment on above: Result Comment: ADA RECOMMENDED LIMIT 4.0 - 6.0 ADA THERAPEUTIC TARGET < 7.0 ACTION SUGGESTED > 7.0 Performed By: #### A 1C #### [facility] [address] [place] [address] Dr. Todd Moreno Glucose [Mass/Vol] 105 mg/dL Normal [facility] Comment on above: Performed By: #### A 1C #### [facility] [address] [place] [address] Dr. Todd Moreno HbA1c (Bld) [Mass fraction] 5.3 % Normal 4.5-6.2 [facility] Comment on above: Performed By: #### A 1C #### [facility] [address] [place] [address] Dr. Todd Moreno BENJAMIN BOX TEST PT SEND OUTo n 03-20-2022 SENT TO REF LAB 03/20/2022 Normal [facility] Comment on above: Performed By: #### P TT, PT #### [facility] [address] [place] [address] Dr. Todd Moreno TYPE AND SCREENon 03-20-2022 TYPE AND SCREEN Negative Normal [facility] Comment on above: Performed By: #### P TT, PT #### [facility] [address], [place] [address] Dr. Todd Moreno US PREG TVon 02-24-2022 [...] CARIDAD DOBSON Date: 2022-02-24 16:16 Normal [facility] CULTURE URINEon 02-03-2022 CULTURE URINE Isolate [...] F Oxacillin 0.5 S F Normal [facility] Comment on above: Performed By: #### P TT, PT #### [facility] [address], [place] [address] Dr. Todd Moreno US PREG TVon 02-01-2022 [...] ETHAN MERCER Date: 2022-01-31 22:05 Normal [facility] CBC AUTO DIFFon 01-31-2022 BASO # 0.1 103/ul Normal 0.0-0.1 [facility] Comment on above: Performed By: #### P TT, PT #### [facility] [address] [address] [address] Todd Moreno Basophils/100 WBC (Bld) 0.8 % Normal 0.2-2.0 [facility] Comment on above: Performed By: #### P TT, PT #### [facility] [address] [address] [address] Todd Moreno EO # 0.5 103/ul Normal 0.0-0.7 [facility] Comment on above: Performed By: #### P TT, PT #### [facility] [address] [address] [address] Todd Moreno Eosinophils/100 WBC (Bld) 5.4 % Normal 0.9-7.0 [facility] Comment on above: Performed By: #### P TT, PT #### [facility] [address] [place] [address] Dr. Todd Moreno Erythrocyte distribution width (RBC) [Ratio] 15.0 % Normal 11.0-15.0 [facility] Comment on above: Performed By: #### P TT, PT #### [facility] [address] [place] [address] Dr. Todd Moreno Hematocrit (Bld) [Volume fraction] 34.3 % Critically low 36.0-48.0 [facility] Comment on above: Performed By: #### P TT, PT #### [facility] [address] [place] [address] Dr. Todd Moreno Hemoglobin (Bld) [Mass/Vol] 11.2 g/dL Critically low 12.0-16.0 [facility] Comment on above: Performed By: #### P TT, PT #### [facility] [address] [place] [address] Dr. Todd Moreno IG # 0.02 10e3/ul Normal 0.00-0.03 [facility] Comment on above: Performed By: #### P TT, PT #### [facility] [address] [place] [address] Dr. Todd Moreno IG % 0.2 % Normal 0.0-0.5 [facility] Comment on above: Performed By: #### P TT, PT #### [facility] [address] [place] [address] Dr. Todd Moreno LYMPH # 2.7 103/ul Normal 1.2-3.8 [facility] Comment on above: Performed By: #### P TT, PT #### [facility] [address] [place] [address] Dr. Todd Moreno Lymphocytes/100 WBC (Bld) 29.9 % Normal 20.5-60.0 [facility] Comment on above: Performed By: #### P TT, PT #### [facility] [address] [place] [address] Dr. Todd Moreno MANUAL DIFF REQ NO Normal [facility] Comment on above: Performed By: #### P TT, PT #### [facility] [address] [place] [address] Dr. Todd Moreno MCH (RBC) [Entitic mass] 26.7 pg Normal 26.7-34.0 [facility] Comment on above: Performed By: #### P TT, PT #### [facility] [address] [place] [address] Dr. Todd Moreno MCHC (RBC) [Mass/Vol] 32.7 g/dL Normal 29.9-35.2 [facility] Comment on above: Performed By: #### P TT, PT #### [facility] [address] [place] [address] Dr. Todd Moreno MCV (RBC) [Entitic vol] 81.7 fL Normal 81.0-99.0 [facility] Comment on above: Performed By: #### P TT, PT #### [facility] [address] [place] [address] Dr. Todd Moreno MONO # 0.5 103/ul Normal 0.3-0.8 [facility] Comment on above: Performed By: #### P TT, PT #### [facility] [address] [place] [address] Dr. Todd Moreno Monocytes/100 WBC (Bld) 5.7 % Normal 1.7-12.0 [facility] Comment on above: Performed By: #### P TT, PT #### [facility] [address] [place] [address] Dr. Todd Moreno NEUT # 5.2 103/ul Normal 1.4-6.5 [facility] Comment on above: Performed By: #### P TT, PT #### [facility] [address] [place] [address] Dr. Todd Moreno Neutrophils/100 WBC (Bld) 58.0 % Normal 43.0-75.0 [facility] Comment on above: Performed By: #### P TT, PT #### [facility] [address] [place] [address] Dr. Todd Moreno Platelet mean volume (Bld) [Entitic vol] 10.4 fL Normal 9.5-13.5 [facility] Comment on above: Performed By: #### P TT, PT #### [facility] [address] [place] [address] Dr. Todd Moreno PLT 270 103/ul Normal 150-450 [facility] Comment on above: Performed By: #### P TT, PT #### [facility] [address] [place] [address] Dr. Todd Moreno RBC 4.20 106/ul Normal 4.20-5.40 [facility] Comment on above: Performed By: #### P TT, PT #### [facility] [address] [place] [address] Dr. Todd Moreno WBC 9.1 103/ul Normal 4.0-11.0 [facility] Comment on above: Performed By: #### P TT, PT #### [facility] [address] [place] [address] Dr. Todd Moreno ER URINE PROFILEon 2 Bilirubin Ql (U) Negative Normal NEGATIVE [facility] Comment on above: Performed By: #### P TT, PT #### [facility] [address] [place] [address] Dr. Todd Moreno Clarity (U) CLEAR Normal CLEAR [facility] Comment on above: Performed By: #### P TT, PT #### [facility] [address] [place] [address] Dr. Todd Moreno Color (U) YELLOW Normal YELLOW [facility] Comment on above: Performed By: #### P TT, PT #### [facility] [address] [place] [address] Dr. Todd Moreno ERUAHD A micrscopic examination will be performed if indicated. Normal [facility] Comment on above: Performed By: #### P TT, PT #### [facility] [address] [place] [address] Dr. Todd Moreno Glucose Ql (U) Negative Normal NEGATIVE [facility] Comment on above: Performed By: #### P TT, PT #### [facility] [address] [place] [address] Dr. Todd Moreno Hemoglobin Ql (U) TRACE-INTACT Abnormal NEGATIVE [facility] Comment on above: Performed By: #### P TT, PT #### [facility] [address] [place] [address] Dr. Todd Moreno Ketones Ql (U) Negative Normal NEGATIVE [facility] Comment on above: Performed By: #### P TT, PT #### [facility] [address] [place] [address] Dr. Todd Moreno LEUKOCYTES SMALL Abnormal NEGATIVE [facility] Comment on above: Performed By: #### P TT, PT #### [facility] [address] [place] [address] Dr. Todd Moreno Nitrite Ql (U) Negative Normal NEGATIVE [facility] Comment on above: Performed By: #### P TT, PT #### [facility] [address] [place] [address] Dr. Todd Moreno pH (U) 6.5 [pH] Normal 5-9 [facility] Comment on above: Performed By: #### P TT, PT #### [facility] [address] [place] [address] Dr. Todd Moreno SPEC GRAVITY 1.015 Normal 1.005-<=1.025 [facility] Comment on above: Performed By: #### P TT, PT #### [facility] [address] [place] [address] Dr. Todd Moreon UA PROTEIN Negative Normal NEGATIVE/ TRACE [facility] Comment on above: Performed By: #### P TT, PT #### [facility] [address] [place] [address] Dr. Todd Moreno UR MICRO IND INDICATED Normal [facility] Comment on above: Performed By: #### P TT, PT #### [facility] [address] [place] [address] Dr. Todd Moreno Urobilinogen Qn (U) 0.2 {Tiffany'U}/dL Normal 0.2 - 1. 0 [facility] Comment on above: Performed By: #### P TT, PT #### [facility] [address] [place] [address] Dr. Todd Moreno LIPASEon 01-31-2022 Lipase [Catalytic activity/Vol] 123.0 U/L Normal 73.0-393.0 [facility] Comment on above: Performed By: #### C MP, LIPA #### [facility] [address] [place] [address] Dr. Todd Moreno PREG QUANT HCGon 01-31-2022 HCG QUANT 711 mIU/mL Normal [facility] Comment on above: Performed By: #### P TT, PT #### [facility] [address] [place] [address] Dr. Todd Moreno HCG RANGE SEE BELOW Normal [facility] Comment on above: Result Comment: 5-50 0.2-1 WEEK 50-500 1-2 WEEKS 100-5,000 2-3 WEEKS 500-10,000 3-4 WEEKS 1,000-50,000 4-5 WEEKS 10,000-100,000 5-6 WEEKS 15,000-200,000 6-8 WEEKS 10,000-100,000 2-3 MONTHS Performed By: #### P TT, PT #### [facility] [address] [place] [address] Dr. Todd Moreno PROF 14(COMP METB)on 022 Albumin [Mass/Vol] 3.7 g/dL Normal 3.4-5.0 [facility] Comment on above: Performed By: #### C MP, LIPA #### [facility] [address] [place] [address] Dr. Todd Moreno Albumin/Globulin [Mass ratio] 1.0 {ratio} Normal [facility] Comment on above: Performed By: #### C MP, LIPA #### [facility] [address] [place] [address] Dr. Todd Moreno ALP [Catalytic activity/Vol] 80 U/L Normal 46-116 [facility] Comment on above: Performed By: #### C MP, LIPA #### [facility] [address] [place] [address] Dr. Todd Moreno ALT [Catalytic activity/Vol] 23 U/L Normal 14-59 [facility] Comment on above: Performed By: #### C MP, LIPA #### [facility] [address] [place] [address] Dr. Todd Moreno Anion gap [Moles/Vol] 10.2 mmol/L Normal [facility] Comment on above: Performed By: #### C MP, LIPA #### [facility] [address] [place] [address] Dr. Todd Moreno AST [Catalytic activity/Vol] 14 U/L Critically low 15-37 [facility] Comment on above: Performed By: #### C MP, LIPA #### [facility] [address] [place] [address] Dr. Todd Moreno Bilirubin [Mass/Vol] 0.3 mg/dL Normal 0.2-1.0 [facility] Comment on above: Performed By: #### C MP, LIPA #### [facility] [address] [place] [address] Dr. Todd Moreno Calcium [Mass/Vol] 9.1 mg/dL Normal 8.5-10.1 [facility] Comment on above: Performed By: #### C MP, LIPA #### [facility] [address] [place] [address] Dr. Todd Moreno Chloride [Moles/Vol] 104 mmol/L Normal 98-107 [facility] Comment on above: Performed By: #### C MP, LIPA #### [facility] [address] [place] [address] Dr. Todd Moreno CO2 [Moles/Vol] 26.8 mmol/L Normal 21.0-32.0 [facility] Comment on above: Performed By: #### C MP, LIPA #### [facility] [address] [place] [address] Dr. Todd Moreno Creatinine [Mass/Vol] 0.87 mg/dL Normal 0.55-1.02 [facility] Comment on above: Performed By: #### C MP, LIPA #### [facility] [address] [place] [address] Dr. Todd Moreno EGFR-AF VIETNAMESE >60 Normal >=60 [facility] Comment on above: Performed By: #### C MP, LIPA #### [facility] [address] [place] [address] Dr. Todd Moreno EGFR-NON AF VIETNAMESE >60 Normal >=60 [facility] Comment on above: Performed By: #### C MP, LIPA #### [facility] [address] [place] [address] Dr. Todd Moreno Globulin (S) [Mass/Vol] 3.7 g/dL Normal [facility] Comment on above: Performed By: #### C MP, LIPA #### [facility] [address] [place] [address] Dr. Todd Moreno Glucose [Mass/Vol] 98 mg/dL Normal 74-106 [facility] Comment on above: Performed By: #### C MP, LIPA #### [facility] [address] [place] [address] Dr. Todd Moreno Potassium [Moles/Vol] 4.0 mmol/L Normal 3.5-5.1 [facility] Comment on above: Performed By: #### C MP, LIPA #### [facility] [address] [place] [address] Dr. Todd Moreno Protein [Mass/Vol] 7.4 g/dL Normal 6.4-8.2 [facility] Comment on above: Performed By: #### C MP, LIPA #### [facility] [address] [place] [address] Dr. Todd Moreno Sodium [Moles/Vol] 137 mmol/L Normal 136-145 [facility] Comment on above: Performed By: #### C MP, LIPA #### [facility] [address] [place] [address] Dr. Todd Moreno Urea nitrogen [Mass/Vol] 15.0 mg/dL Normal 7.0-18.0 [facility] Comment on above: Performed By: #### C MP, LIPA #### [facility] [address] [place] [address] Dr. Todd Moreno Urea nitrogen/Creatinine [Mass ratio] 17.2 mg/mg Normal [facility] Comment on above: Performed By: #### C MP, LIPA #### [facility] [address] [place] [address] Dr. Todd Moreno URINE MICROSCOPIC ONLYon BACTERIA SMALL Abnormal NONE SEEN [facility] Comment on above: Performed By: #### P TT, PT #### [facility] [address] [place] [address] Dr. Todd Moreno Bacteria identified Cx Nom (U) INDICATED Normal [facility] Comment on above: Performed By: #### P TT, PT #### [facility] [address] [place] [address] Dr. Todd Moreno CAST NONE SEEN Normal NONE SEEN [facility] Comment on above: Performed By: #### P TT, PT #### [facility] [address] [place] [address] Dr. Todd Moreno Crystals LM Nom (Urine sed) NONE SEEN Normal NONE SEEN [facility] Comment on above: Performed By: #### P TT, PT #### [facility] [address] [place] [address] Dr. Todd Moreno Epithelial cells LM Ql (Urine sed) FEW Abnormal NONE SEEN /RARE [facility] Comment on above: Performed By: #### P TT, PT #### [facility] [address] [place] [address] Dr. Todd Moreno MUCOUS NONE SEEN Normal NONE SEEN [facility] Comment on above: Performed By: #### P TT, PT #### [facility] [address] [place] [address] Dr. Todd Moreno RBC 0-2 Normal 0-2 [facility] Comment on above: Performed By: #### P TT, PT #### [facility] [address] [place] [address] Dr. Todd Moreno WBC 10-20 Abnormal NONE SEEN [facility] Comment on above: Performed By: #### P TT, PT #### [facility] [address] [place] [address] Dr. Todd Moreno ESTROGENon 10-20-2021 Estrogens, Total 68 pg/mL Normal [facility] Comment on above: Result Comment: Prep ubertal < 40 Female Cycle: 1-10 Days 16 - 328 11-20 Days 34 - 501 21-30 Days 48 - 350 Post-Menopausal 40 - 244 Performed By: #### P TT, PT #### [facility] [address] [address] [address] Todd Moreno ESTRADIOLon 10-16-2021 Estradiol 62.1 pg/mL Normal [facility] Comment on above: Result Comment: Adul t Female: Follicular phase 12.5 - 166.0 Ovulation phase 85.8 - 498.0 Luteal phase 43.8 - 211.0 Postmenopausal <6.0 - 54.7 1st trimester 215.0 - >4300.0 Ramos ECLIA methodology Performed By: #### E STRADI #### [facility] [address] [address] [address] Todd Moreno FSHon 10-16-2021 FSH 5.6 mIU/mL Normal [facility] Comment on above: Result Comment: Adul t Female: Follicular phase 3.5 - 12.5 Ovulation phase 4.7 - 21.5 Luteal phase 1.7 - 7.7 Postmenopausal 25.8 - 134.8 Performed By: #### P TT, PT #### [facility] [address] [address] [address] Todd Moreno LUTEINIZING HORMONE (LH)on 0 10-16-2021 LH 12.1 mIU/mL Normal [facility] Comment on above: Result Comment: Adul t Female: Follicular phase 2.4 - 12.6 Ovulation phase 14.0 - 95.6 Luteal phase 1.0 - 11.4 Postmenopausal 7.7 - 58.5 Performed By: #### P TT, PT #### [facility] [address] [address] [address] Todd Moreno CBC AUTO DIFFon 10-15-2021 BASO # 0.0 103/ul Normal 0.0-0.1 [facility] Comment on above: Performed By: #### P TT, PT #### [facility] [address] [place] [address] Dr. Todd Moreno Basophils/100 WBC (Bld) 0.6 % Normal 0.2-2.0 [facility] Comment on above: Performed By: #### P TT, PT #### [facility] [address] [place] [address] Dr. Todd Moreno EO # 0.1 103/ul Normal 0.0-0.7 [facility] Comment on above: Performed By: #### P TT, PT #### [facility] [address] [place] [address] Dr. Todd Moreno Eosinophils/100 WBC (Bld) 2.1 % Normal 0.9-7.0 [facility] Comment on above: Performed By: #### P TT, PT #### [facility] [address] [place] [address] Dr. Todd Moreno Erythrocyte distribution width (RBC) [Ratio] 14.0 % Normal 11.0-15.0 [facility] Comment on above: Performed By: #### P TT, PT #### [facility] [address] [place] [address] Dr. Todd Moreno Hematocrit (Bld) [Volume fraction] 37.0 % Normal 36.0-48.0 [facility] Comment on above: Performed By: #### P TT, PT #### [facility] [address] [place] [address] Dr. Todd Moreno Hemoglobin (Bld) [Mass/Vol] 11.6 g/dL Critically low 12.0-16.0 [facility] Comment on above: Performed By: #### P TT, PT #### [facility] [address] [place] [address] Dr. Todd Moreno IG # 0.01 10e3/ul Normal 0.00-0.03 [facility] Comment on above: Performed By: #### P TT, PT #### [facility] [address] [place] [address] Dr. Todd Moreno IG % 0.2 % Normal 0.0-0.5 [facility] Comment on above: Performed By: #### P TT, PT #### [facility] [address] [place] [address] Dr. Todd Moreno LYMPH # 2.2 103/ul Normal 1.2-3.8 [facility] Comment on above: Performed By: #### P TT, PT #### [facility] [address] [place] [address] Dr. Todd Moreno Lymphocytes/100 WBC (Bld) 33.1 % Normal 20.5-60.0 [facility] Comment on above: Performed By: #### P TT, PT #### [facility] [address] [place] [address] Dr. Todd Moreno MANUAL DIFF REQ NO Normal [facility] Comment on above: Performed By: #### P TT, PT #### [facility] [address] [place] [address] Dr. Todd Moreno MCH (RBC) [Entitic mass] 26.3 pg Critically low 26.7-34.0 [facility] Comment on above: Performed By: #### P TT, PT #### [facility] [address] [place] [address] Dr. Todd Moreno MCHC (RBC) [Mass/Vol] 31.4 g/dL Normal 29.9-35.2 [facility] Comment on above: Performed By: #### P TT, PT #### [facility] [address] [place] [address] Dr. Todd Moreno MCV (RBC) [Entitic vol] 83.9 fL Normal 81.0-99.0 [facility] Comment on above: Performed By: #### P TT, PT #### [facility] [address] [place] [address] Dr. Todd Moreno MONO # 0.2 103/ul Critically low 0.3-0.[address] [facility] Comment on above: Performed By: #### P TT, PT #### [facility] [address] [place] [address] Dr. Todd Moreno Monocytes/100 WBC (Bld) 3.5 % Normal 1.7-12.0 [facility] Comment on above: Performed By: #### P TT, PT #### [facility] [address] [address] [address] Todd Moreno NEUT # 4.0 103/ul Normal 1.4-6.5 [facility] Comment on above: Performed By: #### P TT, PT #### [facility] [address] [address] [address] Todd Moreno Neutrophils/100 WBC (Bld) 60.5 % Normal 43.0-75.0 [facility] Comment on above: Performed By: #### P TT, PT #### [facility] [address] [address] [address] Todd Moreno Platelet mean volume (Bld) [Entitic vol] 10.6 fL Normal 9.5-13.5 [facility] Comment on above: Performed By: #### P TT, PT #### [facility] [address] [place] [address] Dr. Todd Moreno PLT 263 103/ul Normal 150-450 [facility] Comment on above: Performed By: #### P TT, PT #### [facility] [address] [place] [address] Dr. Todd Moreno RBC 4.41 106/ul Normal 4.20-5.40 [facility] Comment on above: Performed By: #### P TT, PT #### [facility] [address] [address] [address] Todd Moreno WBC 6.6 103/ul Normal 4.0-11.0 [facility] Comment on above: Performed By: #### P TT, PT #### [facility] [address] [place] [address] Dr. Todd Moreno FREE T4on 10-15-2021 Free T4 [Mass/Vol] 1.05 ng/dL Normal 0.76-1.46 [facility] Comment on above: Performed By: #### P TT, PT #### [facility] [address] [address] [address] Todd Moreno PROTIMEon 10-15-2021 INR Coag (PPP) [Relative time] 1.02 {INR} Normal [facility] Comment on above: Performed By: #### P TT, PT #### [facility] [address] [place] [address] Dr. Todd Moreno INR GUIDELINES SEE BELOW Normal [facility] Comment on above: Result Comment: RAMÓN RED INR: 2.0 - 3.0 CONDITIONS NOT LISTED BELOW 2.5 - 3.5 FOR PROSTHETIC HEART VALVE REPLACEMENT 2.5 - 3.5 RECURRENT THROMBOSIS Performed By: #### P TT, PT #### [facility] [address] [place] [address] Dr. Todd Moreno PT Coag (PPP) [Time] 11.0 s Normal 9.0-11.6 [facility] Comment on above: Performed By: #### P TT, PT #### [facility] [address] [place] [address] Dr. Todd Moreno PTTon 10-15-2021 aPTT Coag (Bld) [Time] 32.4 s Normal 22.3-36.2 [facility] Comment on above: Performed By: #### P TT, PT #### [facility] [address] [place] [address] Dr. Todd Moreno TSHon 10-15-2021 TSH 1.777 uIU/mL Normal 0.358-3.740 [facility] Comment on above: Performed By: #### P TT, PT #### [facility] [address] [place] [address] Dr. Todd Moreno PAP ACOG PANEL 2: 30 to 65on 10-10-2021 . . Normal [facility] Comment on above: Result Comment: Perf ormed at: WB Performed By: #### [id number] #### [facility] [address] [place] [address] Dr. Todd Moreno Age Gdln ACOG Testing - [facility] Comment on above: Performed By: #### [id number] #### [facility] [address] [place] [address] Dr. Todd Moreno DIAGNOSIS: Comment Normal [facility] Comment on above: Result Comment: NEGA TIVE FOR INTRAEPITHELIAL LESION OR MALIGNANCY. Performed at: WB Performed By: #### [id number] #### [facility] [address] [place] [address] Dr. Todd Moreno HPV Aptima Negative Normal Negative [facility] Comment on above: Result Comment: This nucleic acid amplification test detects fourteen high-risk HPV types (16,18,31,33,35,39,45,51,52,56,58,59,66,68) without differentiation. Performed at: =G Performed By: #### [id number] #### [facility] [address] [place] [address] Dr. Todd Moreno Methodology: Comment Normal [facility] Comment on above: Result Comment: This liquid based ThinPrep(R) pap test was screened with the use of an image guided system. Performed at: WB Performed By: #### [id number] #### [facility] [address] [place] [address] Dr. Todd Moreno Note: Comment Normal [facility] Comment on above: Result [...] Performed at: WB Performed By: #### [id number] #### [facility] [address] [place] [address] Dr. Todd Moreno Performed by: Comment Normal [facility] Comment on above: Result Comment: Magalie Lemus, Mat Repairer (ASCP) Performed at: WB Performed By: #### [id number] #### [facility] [address] [place] [address] Dr. Todd Moreno Specimen adequacy: Comment Normal [facility] Comment on above: Result Comment: Sati sfactory for evaluation. Endocervical and/or squamous metaplastic cells (endocervical component) are present. Performed at: WB Performed By: #### [id number] #### [facility] [address] [place] [address] Dr. Todd Moreno COVID-19 Antigenon 2 COVID-19 [...] its performance Corinne Disclaimer characteristic determined by [employer] and Corinne Disclaimer validated at [facility]. This Corinne Disclaimer test has not [...] is terminated or revoked sooner. PERFORMED BY: [place] [address] [address] JONATHAN SHEPARD M.D. [facility] Comment on above: Performed By: #### S OFIANEG, COVID-19 CORINNE #### [facility] [address] [place] [address] HCG,Urineon 03-30-2021 Beta HCG ( test) Ql (U) Negative [facility] Comment on above: Result Comment: PERF ORMED BY: [place] [address] [address] JONATHAN SHEPARD M.D. Performed By: #### U HCG #### [facility] [address] [place] [address] Corinne Ag Negativeon 03-30-19 Corinne Ag Negative Negative Normal Negative [facility] Comment on above: Result Comment: This is a duplicate Corinne SARS Antigen (KAEL) result to be used for statistical tracking purpose only. PERFORMED BY: [place] [address] [address] JONATHAN SHEPARD M.D. Performed By: #### S OFNERIS, COVID-19 CORINNE #### [address] COVID-19 [facility] SARS-CoV-2 (COVID-19) RNA JESE+probe Ql (Unsp spec) Negative Normal Negative [facility] Comment on above: Order Comment: Healt hcare Worker?: N Result Comment: Testing for SARS-CoV-2 by RT-PCR This test was developed and its performance characteristics determined by [employer]) and validated at the [facility]. This test has not been FDA [...] is terminated or revoked sooner. PERFORMED BY: [place] [address] [address]MA[address] JONATHAN SHEPARD M.D. Performed By: #### C OVID 19 [facility] #### [place] [id number] [facility] XR elbow LT 2Von 03-01-2021 XR elbow LT 2V [facility] Main [place] [address] [place] [address] XRay Report Signed Patient: Moira Almaguer MR#: [id number] : 1985 Acct:[id number] Age/Sex: 35 / F ADM Date: 03/01/21 Loc: SOXD Room: Type: REG CLI Attending Dr: Leandro Robles MD Ordering Provider: [...] Valdez Mcwilliams M.D.03/01/2021 1:47 PM Dictation Location: [place] [address] Transcribed By: [facility] 03/01/21 1347 Dictated By: Valdez Mcwilliams DO 03/01/21 1344 Signed By: 03/01/21 1347 [facility] XR FOREARM LEFT 2 VIEWSon [...] are recommended in 7 to 10 days. [facility]/[employer] Workstation ID: [id number] Dictated by: MAR DAWSON on SunSep 08, 2020 11:41:42 PM EDT Transcribed by: SHERRILL SMYTH on SunSep 09, 2020 12:10:05 AM EDT Finalized by: MAR DAWSON on SunSep 09, 2020 12:16:26 AM EDT [facility] Comment on above: Order Comment: Injur y/Trauma [...] on SunSep 08, 2020 11:42:00 PM EDT [facility] Comment on above: Order Comment: Injur y/Trauma or Illness?:Injury/Trauma How long have you had these symptoms (acute/chronic)?:Acute Reason for exam?:fall, pain to left shoulder radiating down arm History of cancer?:no Surgeries, chemotherapy, or radiation?:no Type of Exam?:Initial Mechanism of injury?:fall Vital Signs Date Time Vital Sign Value Performing Clinician Facility 03-25-2024 14:23-0500 Body mass index (BMI) [Ratio] 35.71 kg/m2 Iveth MCGRATH Work Phone: [facility] 03-25-2024 14:23-0500 Body weight 103.42 kg Iveth MCGRATH Work Phone: [facility] 03-25-2024 14:23-0500 Diastolic blood pressure 70 mm[Hg] Iveth [place] PA Work Phone: [facility] 03-25-2024 14:23-0500 Systolic blood pressure 108 mm[Hg] Iveth Hood PA Work Phone: [facility] 02-20-2024 11:40-0500 Body mass index (BMI) [Ratio] 34.68 kg/m2 Rogers James DO Work Phone: [facility] 02-20-2024 11:40-0500 Body weight 100.43 kg Rogers James DO Work Phone: [facility] 02-20-2024 11:40-0500 Diastolic blood pressure 70 mm[Hg] Rogers James DO Work Phone: [facility] 02-20-2024 11:40-0500 Systolic blood pressure 120 mm[Hg] Rogers James DO Work Phone: [facility] 02-07-2024 11:42-0500 Body mass index (BMI) [Ratio] 34.3 kg/m2 Iveth MCGRATH Work Phone: [facility] 02-07-2024 11:42-0500 Body weight 99.34 kg Iveth MCGRATH Work Phone: [facility] 02-07-2024 11:42-0500 Diastolic blood pressure 70 mm[Hg] Iveth MCGRATH Work Phone: [facility] 02-07-2024 11:42-0500 Systolic blood pressure 118 mm[Hg] Iveth MCGRATH Work Phone: [facility] 01-10-2024 10:44-0400 Body mass index (BMI) [Ratio] 33.89 kg/m2 Rogers James DO Work Phone: [facility] 01-10-2024 10:44-0400 Body weight 98.16 kg Rogers James DO Work Phone: [facility] 01-10-2024 10:44-0400 Diastolic blood pressure 74 mm[Hg] Rogers James DO Work Phone: [facility] 01-10-2024 10:44-0400 Systolic blood pressure 120 mm[Hg] Rogers James DO Work Phone: [facility] 12-13-2023 10:51-0400 Body mass index (BMI) [Ratio] 33.33 kg/m2 Rogers James DO Work Phone: [facility] 12-13-2023 10:51-0400 Body weight 96.53 kg Rogers James DO Work Phone: [facility] 12-13-2023 10:51-0400 Diastolic blood pressure 80 mm[Hg] Rogers James DO Work Phone: [facility] 12-13-2023 10:51-0400 Systolic blood pressure 126 mm[Hg] Rogers Jaems DO Work Phone: [facility] 11-15-2023 10:14-0400 Body mass index (BMI) [Ratio] 33.11 kg/m2 Rogers James DO Work Phone: [facility] 11-15-2023 10:14-0400 Body weight 95.89 kg Rogers James DO Work Phone: [facility] 11-15-2023 10:14-0400 Diastolic blood pressure 78 mm[Hg] Rogers James DO Work Phone: [facility] 11-15-2023 10:14-0400 Systolic blood pressure 118 mm[Hg] Rogers James DO Work Phone: [facility] 03-01-2021 11:00-0500 Body height 170.18 cm Leandro Olexa Other [employer] Other 03-01-2021 11:00-0500 Body mass index (BMI) [Ratio] 30.07 kg/m2 Leandro Olexa Other [employer] Other 03-01-2021 11:00-0500 Body weight 87.09 kg Leandro Olexa Other [employer] Other Encounters Encounter Date Encounter Type Care Provider Facility Start: 04-09-2024 End: 04-09-2024 Bamboo flowsheet Rogers James DO Work Phone: [facility] Start: 04-09-2024 End: 04-09-2024 Bamboo flowsheet Rogers James DO Work Phone: [facility] Start: 03-25-2024 [...] second trimester Start: 02-04-2024 End: 02-04-2024 ambulatory ROB John [facility] Start: 01-30-2024 End: 01-30-2024 ambulatory SRIDEVI FREITAS [facility] Start: 01-23-2024 End: 01-23-2024 Telephone encounter Emily Alfaro DO Work Phone: [facility] Start: 01-10-2024 End: 01-10-2024 Bamboo flowsheet Rogers James DO Work Phone: [facility] Start: 01-10-2024 End: 01-10-2024 Bamboo flowsheet Rogers James DO Work Phone: [facility] Start: 01-10-2024 End: 01-10-2024 flow sheet Rogers James DO Work Phone: [facility] Comment on above: Second trimester pre gnancy; 23 weeks gestation of Start: 01-10-2024 End: 01-10-2024 ambulatory ROGERS JAMES Not Available Start: 01-07-2024 End: 01-07-2024 ambulatory ROB GONZALES [facility] Start: 12-24-2023 End: 12-24-2023 ambulatory SRIDEVI FREITAS [facility] Start: 12-13-2023 End: 12-13-2023 Bamboo flowsheet Rogers James DO Work Phone: [facility] Start: 12-13-2023 End: 12-14-2023 Bamboo flowsheet Rogers James DO Work Phone: [facility] Start: 12-13-2023 End: 12-14-2023 External Result Encounter Rogers James DO Work Phone: [facility] External Department Unsolicited Start: 12-13-2023 End: 12-13-2023 ambulatory ROGERS JAMES Not Available Start: 12-13-2023 End: 12-13-2023 flow sheet Rogers James DO Work Phone: [facility] Comment on above: 19 weeks gestation o f ; Exposure to STD; Vaginal discharge; Elevated glucose Start: 11-15-2023 End: 11-15-2023 Bamboo flowsheet Rogers James DO Work Phone: [facility] Start: 11-15-2023 End: 11-15-2023 Bamboo flowsheet Rogers James DO Work Phone: [facility] Start: 11-15-2023 End: 11-15-2023 ambulatory ROGERS JAMES Not Available Start: 11-15-2023 End: 11-15-2023 flow sheet Rogers James DO Work Phone: [facility] Comment on above: Second trimester pre gnancy; History of gestational diabetes; Diabetes mellitus screening; Screening, , for anatomic survey Start: 11-07-2023 End: 11-07-2023 Clinisync Result Encounter Iveth MCGRATH Work Phone: [facility] Unsolicited Start: 11-07-2023 End: 11-07-2023 Clinisync Result Encounter Iveth MCGRATH Work Phone: [facility] Unsolicited Start: 10-18-2023 End: 10-18-2023 [...] 03-01-2021 End: 03-01-2021 ambulatory Leandro Robles Other [employer] Other Start: 03-01-2021 Encounter for other preprocedural examination Leandro Robles [facility] Start: 03-01-2021 Office outpatient ne w 45 minutes Leandro Robles [facility] Start: 09-09-2020 End: 09-09-2020 Emergency department patient visit HUBER PIPER [facility] Procedures Date Procedure Procedure Detail Performing [...] Phone: Start: 02-04-2024 Follow-up visit Follow-up ROB Dora GONZALES Start: 01-10-2024 Urnls dip stick/tabl et [...] t hin layer prep mnl screen Rogers James DO Work Phone: Start: 10-05-2021 Microscopic observat ion [Identifier] in Cervix by Cyto stain Iveth MCGRATH Work Phone: Plan of Treatment Date Care Activity Detail Author Start: 03-08-2028 Screening for malign ant neoplasm of cervix [facility] Start: 10-05-2026 Screening for malign ant neoplasm of cervix [facility] Start: 04-09-2024 End: 04-09-2024 Patient encounter procedure 04/09/2024 1:30 PM EST Routine [facility] [address] [phone] Rogers Ramirez, DO [address] [place] [address] [facility] Start: 03-24-2024 End: 03-24-2024 Patient encounter procedure 03/24/2024 11:20 AM EST Routine [facility] [address] [place], [place] [address] [address] Iveth Hood PA [address] [place] [address] [facility] Start: 03-10-2024 End: 03-10-2025 [...] 9:30 AM EST Routine [facility] [address] [place] [address] [place] [phone] Rogers Ramirez, DO [address] [place] [address] [facility] Start: 02-20-2024 End: 02-19-2025 CBC panel - Blood by Automated count CBC Lab Routine Diabetes mellitus screening Expected: 02/20/2024 (Approximate), Expires: 02/19/2025 [facility] Work Phone: Comment on above: Expected: 02/20/2024 (Approximate), Expires: 02/19/2025 Start: 02-20-2024 End: 02-20-2024 Patient encounter procedure 02/20/2024 11:00 AM EST Routine [facility] [address] [phone] Rogers Ramirez DO [address] [place] [address] [facility] Start: 02-07-2024 End: 02-06-2025 US for US OB SCAN FOR GROWTH Imaging Routine size consistent with dates during in second trimester Expected: 02/07/2024 (Approximate), Expires: 02/06/2025 [facility] Work Phone: Comment on above: Expected: 02/07/2024 (Approximate), Expires: 02/06/2025 Start: 02-07-2024 End: 02-07-2024 Patient encounter procedure 02/07/2024 11:20 AM EST Routine [facility] [address] [place] [phone] Iveth Hood PA [address] [place] [address] [facility] Start: 01-10-2024 End: 01-10-2024 Patient encounter procedure [facility] Comment on above: Arrived Start: 12-17-2023 End: 12-17-2023 Professional / ancillary services management 12/17/2023 8:00 AM EDT Ancillary Procedure [facility] [address] [place] [phone] [facility] Start: 12-13-2023 End: 01-12-2024 Alpha fetoprotein, maternal Alpha fetoprotein, maternal Lab Routine 19 weeks gestation of Expected: 12/13/2023 (Approximate), Expires: 01/12/2024 [facility] Comment on above: Expected: 12/13/2023 (Approximate), Expires: 01/12/2024 Start: 12-13-2023 End: 12-13-2023 Patient encounter procedure 12/13/2023 10:10 AM EDT Routine [facility] [address] [phone] Rogers Ramirez, DO [address] [place] [address] [facility] Start: 11-18-2023 Influenza vaccination Influenza Vacc ine (#1) [facility] Start: 11-15-2023 End: 11-14-2024 Measurement of glucose 1 hour after glucose challenge for glucose tolerance test Glucose tolerance, 1 hour Lab Routine Diabetes mellitus screening Expected: 11/15/2023 (Approximate), Expires: 11/14/2024 [facility] Work Phone: Comment on above: Expected: 11/15/2023 (Approximate), Expires: 11/14/2024 Start: 11-15-2023 End: 11-14-2024 US for US OB ANATOMY SINGLE W US OB CERVICAL LENGTH Imaging Routine Second trimester History of gestational diabetes Screening, , for anatomic survey Expected: 11/15/2023 (Approximate), Expires: 11/14/2024 [facility] Comment on above: Expected: 11/15/2023 (Approximate), Expires: 11/14/2024 Start: 11-15-2023 End: 11-15-2023 Patient encounter procedure 11/15/2023 9:50 AM EDT Routine [facility] [address] [phone] Rogers Ramirez, DO [address] [place] [address] [facility] OB CHLAMYDIA TRACHOMATI S (GENITO/STI) CHLAMYDIA TRACHOMATIS (GENITO/STI) Lab Routine Exposure to STD Ordered: 12/13/2023 [facility] Comment on above: Ordered: 12/13/2023 Hemoglobin A1c/Hemoglobin.total in Blood Hemoglobin A1c Lab Routine Diabetes mellitus screening Ordered: 02/20/2024 [facility] Comment on above: Ordered: 02/20/2024 Neisseria gonorrhoea e DNA [Presence] in Unspecified specimen by JESE with probe detection Neisseria gonorrhea DNA probe, direct Lab Routine Exposure to STD Ordered: 12/13/2023 [facility] Comment on above: Ordered: 12/13/2023 SURESWAB(R) ADVANCED VAGINITIS PLUS, TMA SURESWAB(R) ADVANCED VAGINITIS PLUS, TMA Pathology and Cytology Routine Vaginal discharge Ordered: 12/13/2023 [facility] Work Phone: Comment on above: Ordered: 12/13/2023 Immunizations Immunization Date Immunization Notes Care Provider [facility] 12-26-2016 influenza virus vacc ine, unspecified formulation Iveth MCGRATH Work Phone: [facility] Payers Date Payer Category Payer Private Health Insurance [id number] 2021 Private Health Insurance [employer] [id number] 2021 Unknown FRONTPATH FRONTP ATH [id number] 2021-Present [phone] [id number]. [id number] 2019 Unknown [id number] 1985 Unknown [id number] 2.16.840.1.966612.3.579.2. 902 1986 Unknown [id number] 2.16.840.1.739781.3.579.2. 593 1986 Unknown [id number] 2.16.840.1.481776.3.579.2. 593 1986 Unknown [id number] 2.16.840.1.530839.3.579.2. 593 1986 Unknown [id number] 2.16.840.1.524173.3.579.2. 59 1986 Unknown [id number] 2.16.840.1.253383.3.579.2. 593 1986 Unknown [id number] 2.840.1.576042.3.579.2. 59 1986 Unknown [id number] 2..840.1.242061.3.579.2. 1285 1986 Unknown [id number] 2.840.1.858006.3.579.2. 1285 1986 Unknown [id number] 2.840.1.838199.3.579.2. 1285 1986 Unknown [id number] 2.840.1.141220.3.579.2. 1285 1986 Unknown [id number] 2.840.1.023253.3.579.2. 1258 1986 Unknown [id number] .840.1.099741.3.579.2. 1258 1986 Unknown [id number] 2.840.1.950942.3.579.2. 1258 1986 Unknown [id number] .840.1.046020.3.579.2. 1258 1986 Unknown [id number] 2.840.1.886632.3.579.2. 1258 1986 Unknown [id number] 2.16.840.1.941590.3.579.2. 1258 1986 Unknown [id number] 2.16.840.1.644502.3.579.2. 1258 1986 Unknown [id number] 2.16840.1.551828.3.579.2. 1258 1986 Unknown [id number] 2.16.840.1.468637.3.579.2. 1259 1959 Self-pay 1959 Unknown [id number] 1959 Unknown [id number] 1959 Unknown [id number] Unknown [id number] 2.16.840.1.288792.3.579.2. 593 Social History Date Type Detail Facility Start: 10-15-2022 End: 02-05-2023 Sex Assigned At [facility] Start: 02-12-2023 Tobacco smoking status ILIS Ex-smoke r [facility] End: 08-19-2011 History [...] to any clubs or organizations such as taoist groups, unions, fraternal or athletic groups, or [...] Gender identity Identifies as female gender (finding) [facility] Clinical Notes 03-01-2021 to 03-25-2024 RAMILA Joshi [...] Current Outpatient Medications Medication Instructions Continuous Glucose Door Glass Installer (FreeStyle Adriana 2 [place]) device 1 Device, Does not apply, 4 [...] Missed period 09/15/2022 Moderate recurrent major depression (CMS/[facility]) 09/15/2022 Other chronic pain 09/15/2022 Radicular pain 09/15/2022 Vitamin D deficiency 09/15/2022 History of miscarriage 06/22/2023 Positive urine test 06/22/2023 23 weeks gestation of 01/10/2024 32 weeks gestation of 03/10/2024 Third trimester 03/10/2024 34 weeks gestation of 03/25/2024 Resolved Ambulatory Problems Diagnosis Date Noted No Resolved Ambulatory Problems Past Medical History: Diagnosis Date ADHD (attention deficit hyperactivity disorder) ([facility]) ADHD (attention deficit hyperactivity disorder) ([facility]) Ankle pain, left Anxiety with depression Epidermal inclusion cyst Fall with injury Gastro-esophageal reflux disease without esophagitis Headache History of cigarette smoking IBS (irritable bowel syndrome) Influenza Irritable bowel syndrome without diarrhea Mononucleosis syndrome Pain in thoracic spine Perennial allergic rhinitis Scoliosis Sinusitis URI (upper respiratory infection) HISTORY PAST MEDICAL HISTORY SOCIAL HISTORY Past Medical History: Diagnosis Date ADHD (attention deficit hyperactivity disorder) ([facility]) ADHD (attention deficit hyperactivity disorder) ([facility]) Ankle pain, left Anxiety with depression Anxiety/depression [...] nursing note reviewed. Exam conducted with a library services coordinator present. Vitals: Estimated body mass index is [...] of: RAMILA Joshi documented in this encounter [facility] 03-10-2024 History of Presen t illness Narrative Reason for Appointment: Patient ID: Moira Starr is a 38 y.o. female who presents for Routine Visit Patient presents today for Return OB appointment. MEDICATIONS Current Outpatient Medications Medication Instructions Continuous Glucose Door Glass Installer ([employer]ach[employer] Adriana 2 [place]) device 1 Device, Does not apply, 4 times daily MV-Min-Fe Fum-FA-DHA ( 1 PO) Take by mouth. saccharomyces boulardii (FLORASTOR) 250 mg, 2 times daily ALLERGIES Allergies Allergen Reactions Sertraline Other Flat emotions Other Reaction(s): decreased emotional lability PROBLEMS Active Ambulatory Problems Diagnosis Date Noted Attention deficit hyperactivity disorder (ADHD) ([facility]) 09/15/2022 Cervicalgia 09/15/2022 Chronic fatigue 09/15/2022 Chronic tension-type headache, not intractable 09/15/2022 Generalized anxiety disorder ([facility]/HCC) 09/15/2022 HPV (human papilloma virus) infection 09/15/2022 Large breasts 09/15/2022 LGSIL on Pap smear of cervix 09/15/2022 Migraine with aura and without status migrainosus, not intractable ([facility]) 09/15/2022 Missed period 09/15/2022 Moderate recurrent major depression ([facility]) 09/15/2022 Other chronic pain 09/15/2022 Radicular pain 09/15/2022 Vitamin D deficiency 09/15/2022 History of miscarriage 06/22/2023 Positive urine test 06/22/2023 23 weeks gestation of 01/10/2024 32 weeks gestation of 03/10/2024 Third trimester 03/10/2024 Resolved Ambulatory Problems Diagnosis Date Noted No Resolved Ambulatory Problems Past Medical History: Diagnosis Date ADHD (attention deficit hyperactivity disorder) ([facility]) ADHD (attention deficit hyperactivity disorder) ([facility]) Ankle pain, left Anxiety with depression Epidermal inclusion cyst Fall with injury Gastro-esophageal reflux disease without esophagitis Headache History of cigarette smoking IBS (irritable bowel syndrome) Influenza Irritable bowel syndrome without diarrhea Mononucleosis syndrome Pain in thoracic spine Perennial allergic rhinitis Scoliosis Sinusitis URI (upper respiratory infection) HISTORY PAST MEDICAL HISTORY SOCIAL HISTORY Past Medical History: Diagnosis Date ADHD (attention deficit hyperactivity disorder) ([facility]) ADHD (attention deficit hyperactivity disorder) ([facility]) Ankle pain, left Anxiety with depression Anxiety/depression [...] Rogers Ramirez DO documented in this encounter [facility] 02-20-2024 History of Presen t illness Narrative Reason for Appointment: Patient ID: Moira Starr is a 38 y.o. female who presents for Routine Visit Patient presents today for Return OB appointment. MEDICATIONS Current Outpatient Medications Medication Instructions Continuous Glucose Door Glass Installer (1Cast Adriana 2 [place]) device 1 Device, Does not apply, 4 [...] Rogers Ramirez DO documented in this encounter [facility] 02-07-2024 History of Presen t illness Narrative Reason for Appointment: Patient ID: Moira Starr is a 38 y.o. female who presents for Routine Visit Patient presents today for Return OB appointment. MEDICATIONS Current Outpatient Medications Medication Instructions Continuous Glucose Door Glass Installer (FreeStyle Adriana 2 [place]) device 1 Device, Does not apply, 4 times daily ergocalciferol (VITAMIN D2) 1.25 mg, Oral, Weekly MV-Min-Fe Fum-FA-DHA ( 1 PO) Oral saccharomyces boulardii (FLORASTOR) 250 mg, Oral, 2 times daily ALLERGIES Allergies Allergen Reactions Sertraline Other Flat emotions Other Reaction(s): decreased emotional lability PROBLEMS Active Ambulatory Problems Diagnosis Date Noted Attention deficit hyperactivity disorder (ADHD) (CMS/[facility]) 09/15/2022 Cervicalgia 09/15/2022 Chronic fatigue 09/15/2022 Chronic [...] disorder) (CMS/HCC) ADHD (attention deficit hyperactivity disorder) ([facility]) Ankle pain, left Anxiety with depression Epidermal inclusion cyst Fall with injury Gastro-esophageal reflux disease without esophagitis Headache History of cigarette smoking IBS (irritable bowel syndrome) Influenza Irritable bowel syndrome without diarrhea Mononucleosis syndrome Pain in thoracic spine Perennial allergic rhinitis Scoliosis Sinusitis URI (upper respiratory infection) HISTORY PAST MEDICAL HISTORY SOCIAL HISTORY Past Medical History: Diagnosis Date ADHD (attention deficit hyperactivity disorder) ([facility]) ADHD (attention deficit hyperactivity disorder) ([facility]) Ankle pain, left Anxiety with depression Anxiety/depression [...] of: RAMILA Joshi documented in this encounter [facility] 01-23-2024 Telephone encount er Note Endocrinology called [...] we will have to put her with MEDIA MARKETING DIRECTOR of her choice (since she would be a returning Angelina pt) to establish care. [facility] 01-23-2024 Miscellaneous Notes Formattin g of this [...] we will have to put her with MEDIA MARKETING DIRECTOR of her choice (since she would be a returning Angelina pt) to establish care. documented in this encounter [facility] 01-10-2024 History of Presen t illness Narrative Reason for Appointment: Patient ID: Moira Starr is a 38 y.o. female who presents for Routine Visit Patient presents today for Return OB appointment. MEDICATIONS Current Outpatient Medications Medication Instructions Continuous Glucose Door Glass Installer ([employer] Adriana 2 [place]) device 1 Device, Does not apply, 4 [...] Date Noted Attention deficit hyperactivity disorder (ADHD) ([facility]) 09/15/2022 Cervicalgia 09/15/2022 Chronic fatigue 09/15/2022 Chronic tension-type headache, not intractable 09/15/2022 Generalized anxiety disorder ([facility]) 09/15/2022 HPV (human papilloma virus) infection 09/15/2022 Large breasts 09/15/2022 LGSIL on Pap smear of cervix 09/15/2022 Migraine with aura and without status migrainosus, not intractable ([facility]) 09/15/2022 Missed period 09/15/2022 Moderate recurrent major depression ([facility]) 09/15/2022 Other chronic pain 09/15/2022 Radicular pain 09/15/2022 Vitamin D deficiency 09/15/2022 History of miscarriage 06/22/2023 Positive urine test 06/22/2023 Resolved Ambulatory Problems Diagnosis Date Noted No Resolved Ambulatory Problems Past Medical History: Diagnosis Date ADHD (attention deficit hyperactivity disorder) ([facility]) ADHD (attention deficit hyperactivity disorder) ([facility]) Ankle pain, left Anxiety with depression Epidermal inclusion cyst Fall with injury Gastro-esophageal reflux disease without esophagitis Headache History of cigarette smoking IBS (irritable bowel syndrome) Influenza Irritable bowel syndrome without diarrhea Mononucleosis syndrome Pain in thoracic spine Perennial allergic rhinitis Scoliosis Sinusitis URI (upper respiratory infection) HISTORY PAST MEDICAL HISTORY SOCIAL HISTORY Past Medical History: Diagnosis Date ADHD (attention deficit hyperactivity disorder) ([facility]) ADHD (attention deficit hyperactivity disorder) ([facility]) Ankle pain, left Anxiety with depression Anxiety/depression [...] nursing note reviewed. Exam conducted with a library services coordinator present. Vitals: Estimated body mass index is [...] Rogers Ramirez DO documented in this encounter [facility] 12-13-2023 History of Presen t illness Narrative Reason for Appointment: Patient ID: Moira Starr is a 38 y.o. female who presents for Routine Visit and STI Screening Patient presents today for Return OB appointment. MEDICATIONS Current Outpatient Medications Medication Instructions Continuous Glucose Door Glass Installer (1Cast Adriana 2 [place]) device 1 Device, Does not apply, 4 [...] nursing note reviewed. Exam conducted with a library services coordinator present. Vitals: Estimated body mass index is [...] Rogers Ramirez DO documented in this encounter [facility] 11-15-2023 History of Presen t illness [...] Date Noted Attention deficit hyperactivity disorder (ADHD) ([facility]) 09/15/2022 Cervicalgia 09/15/2022 Chronic fatigue 09/15/2022 Chronic tension-type headache, not intractable 09/15/2022 Generalized anxiety disorder ([facility]) 09/15/2022 HPV (human papilloma virus) infection 09/15/2022 Large breasts 09/15/2022 LGSIL on Pap smear of cervix 09/15/2022 Migraine with aura and without status migrainosus, not intractable (CMS/HCC) 09/15/2022 Missed period 09/15/2022 Moderate recurrent major depression (HCC) ([facility]) 09/15/2022 Other chronic pain 09/15/2022 Radicular pain 09/15/2022 Vitamin D deficiency 09/15/2022 History of miscarriage 06/22/2023 Positive urine test 06/22/2023 Resolved Ambulatory Problems Diagnosis Date Noted No Resolved Ambulatory Problems Past Medical History: Diagnosis Date ADHD (attention deficit hyperactivity disorder) ([facility]) ADHD (attention deficit hyperactivity disorder) ([facility]) Ankle pain, left Anxiety with depression Epidermal inclusion cyst Fall with injury Gastro-esophageal reflux disease without esophagitis Headache History of cigarette smoking IBS (irritable bowel syndrome) Influenza Irritable bowel syndrome without diarrhea Mononucleosis syndrome Pain in thoracic spine Perennial allergic rhinitis Scoliosis Sinusitis URI (upper respiratory infection) HISTORY PAST MEDICAL HISTORY SOCIAL HISTORY Past Medical History: Diagnosis Date ADHD (attention deficit hyperactivity disorder) ([facility]) ADHD (attention deficit hyperactivity disorder) ([facility]) Ankle pain, left Anxiety with depression Anxiety/depression [...] or undercooked meat, and stay away from [facility]. Patient has been consulted regarding any further [...] Iveth Hood PA-C documented in this encounter [facility] 03-01-2021 Evaluation note Encounter Date Diagnosis [...] M24.022) Feb, Pre-op exam (ICD-10 - Z01.818) [employer] Other Evaluation note* Diagnosis Second trimester state, [...] Reported* Type Description Date Medical History ADHD [employer] Other Summary Purpose Family History No Family [...] content) DATE CREATED AUTHOR 09/14/2020 [facility] DATE CREATED AUTHOR AUTHOR'S ORGANIZ ATION 10/06/2021 [facility] DATE CREATED AUTHOR AUTHOR'S ORGANIZ ATION 06/08/2022 [facility] DATE CREATED AUTHOR AUTHOR'S ORGANIZ ATION 02/06/2024 [facility] DATE CREATED AUTHOR AUTHOR'S ORGANIZ ATION 03/31/2024 [facility] EPIC REASON FOR VISIT (unrecogniz ed section and content) Reason Comments Routine Visit Reason Comments Routine Visit STI Screening Care Teams (unrecognized sec tion and content) Booth Cleaner Relationship Specialty Start Date End Date Emily Alfaro DO [address] [place] [address] PCP - General Family Medicine 09/14/22 Booth Cleaner Relationship Specialty Start Date End Date Emily Alfaro DO [address] [place] [address] PCP - General Family Medicine 09/14/22 Booth Cleaner Relationship Specialty Start Date End Date Emily Alfaro DO [address] [place] [address] PCP - General Family Medicine 09/14/22 Booth Cleaner Relationship Specialty Start Date End Date Emily Alfaro DO [address] [place] [address] PCP - General Family Medicine 09/14/22 Booth Cleaner Relationship Specialty Start Date End Date Emily Alfaro DO [address] [place] [address] PCP - General Family Medicine 09/14/22 Booth Cleaner Relationship Specialty Start Date End Date Emily Alfaro DO [address] [facility] ([place], [place] [place] [address] PCP - General Family Medicine 09/14/22 Booth Cleaner Relationship Specialty Start Date End Date Emily Alfaro DO [address] [place] [address] PCP - General Family Medicine 09/14/22 Booth Cleaner Relationship Specialty Start Date End Date Emily Alfaro DO [address] [place] [address] PCP - General Family Medicine 09/14/22 Booth Cleaner Relationship Specialty Start Date End Date Emily Alfaro DO [address] [place] [address] PCP - General Family Medicine 09/14/22 Booth Cleaner Relationship Specialty Start Date End Date Emily Alfaro DO [address] [place] [address] PCP - General Family Medicine 09/14/22 Booth Cleaner Relationship Specialty Start Date End Date Emily Alfaro DO [address] [place] [address] PCP - General Family Medicine 09/14/22 Booth Cleaner Relationship Specialty Start Date End Date Emily Alfaro DO [address] [place] [address] PCP - General Family Medicine 09/14/22 FOR [...] BE BASED ON THE PRIMARY CLINICAL RECORDS. [facility] provides no warranty or guarantee of the accuracy or completeness of information in this document.
--- NOTE | 2024-04-10 07:47 | US_ITS ---
[address] [address] Patient Name: DANYELL ROSENBERG MRN: [id number] date: 1985 Sex: F Assigned Patient Location: [facility] Current Patient Location: [facility] Accession/Order Number: [id number] Exam Date: 04/10/2024 07:55 Report Date: 04/10/2024 08:31 At the request of: ROGERS HODGE Procedure: US OB BPP w non-stress EXAMINATION: US OB BPP w non-stress HISTORY: HISTORY OF GESTATIONAL DIBETES Z86.32 COMPARISON: No relevant comparison available. TECHNIQUE: Ultrasound biophysical profile was performed in the radiology department. non-reactive stress testing was performed by nursing staff in the birthing center. FINDINGS: BREATHING MOVEMENTS: 2 GROSS BODY MOVEMENTS: 2 TONE: 2 QUALITATIVE AMNIOTIC FLUID VOLUME: 2 PRESENTATION: CEPHALIC HEART RATE: 141.36 bpm AMNIOTIC FLUID VOLUME: 11.9 cm GESTATIONAL AGE: 36 weeks 5 days US/US OB BPP w non-stress IMPRESSION: Total biophysical profile score: 8 Electronically authenticated by: CARIDAD DOBSON Date: 04/10/2024 08:31
[2024-04-10 08:21] VITALS: BP 116/73; PULSE 98
== END 2024-04-10 09:05 | disposition home or self-care (01) ==
LOC: US 01:19 → FBC 07:44
PROVIDERS: PCP Family Medicine; Visit Provider Obstetrics & Gynecology
DX: O99.013 Anemia complicating pregnancy, third trimester (principal); D50.8 Other iron deficiency anemias; Z3A.36 36 weeks gestation of pregnancy; Z86.32 Personal history of gestational diabetes
CPT/HCPCS: 36415; 76818; 82306; 82728; 85025

== ENCOUNTER 2024-04-10 08:56 | Outpatient (OUT) | payer OTHER, SELFPAY ==
--- OUTSIDE RECORDS SUMMARY | 2024-04-10 09:18 | XMS_ITS | CCD ---
Author Organization [facility] CliniSyla Care Team Providers Care Instrument Tech Name Role Phone HUBER LUNDBERG Attending Unavailable [...] Unavailable JAMES ., DR MCCLOUD Admitting Unavailable [place], DR CARIDAD Martin Consulting Unavailable JAMES ., DR MCCLOUD Attending Unavailable JAMES ., DR MCCLOUD Consulting Unavailable MISC, DR JACKSON Primary Care Unavailable JAMES ., DR MCCLOUD Admitting Unavailable JAMES ., DR MCCLOUD Attending Unavailable JAMES ., DR MCCLOUD Consulting Unavailable JAEMS ., DR MCCLOUD Admitting Unavailable JAMES ., DR MCCLOUD Attending Unavailable JAMES ., DR MCCLOUD Consulting Unavailable MISC, DR JACKSON Primary Care Unavailable Angelina DO, Emily G Primary Care Provider [phone] SRIDEVI FREITAS Attending Unavailable ANGELINA, EMILY G [...] HOOD Attending Unavailable JAMES, ROGERS Attending Unavailable JAMSE, ROGERS Attending Unavailable JAMES, ROGERS Attending Unavailable [...] Orally Twice a day Active Continuous Glucose Tire Care Manager (FreeStyle Adriana 2 Whitney) device (20 sources) Start: 11-15-2023 Continuous Glucose Tire Care Manager (FreeStyle Adriana 2 Whitney) device Indications: History of gestational diabetes 1 [...] every week ergocalciferol (Vitamin D2) 1.25 MG (04142 UT) capsule Indications: Vitamin D deficiency Take [...] Start: 12-13-2023 End: 10-26-2024 Continuous Glucose Sensor [facility] Indications: Elevated glucose 1 Device every 14 [...] [facility] Glucose, UA Negative Negative - 2000(110) ++++ mg/dL [facility] Interpretation and review of laboratory results Abnormal [facility] Ketones, UA Positive Negative - 160(16) ++++ mg/dL [facility] Comment on above: trace Leukocytes, UA Trace Negative - 500+++ Lore/mcL [facility] Nitrite, UA Negative Negative - Positive [facility] pH, UA 6.5 5 - 9 [facility] Protein, UA Positive Negative - 2000(20) ++++ mg/dL [facility] Comment on above: 30mg Spec Grav, UA 1.025 1 - 1.03 [facility] Urobilinogen, UA 1.0 0.2 - 12 mg/dL [facility] Urinalysis macro (dipstick) panel (U)on 03-10-2024 Bilirubin, UA Positive Negative - 4(70) +++ mg/dL [facility] Comment on above: small Blood, UA Negative Negative - 50 Andrew/mcL [facility] Clarity, UA Clear [facility] Color, UA Yellow [facility] Glucose, UA Negative Negative - 2000(110) ++++ mg/dL [facility] Interpretation and [...] Urobilinogen, UA 1.0 0.2 - 12 mg/dL [facility] MLR HEMOGLOBIN A1Con 024 Glucose [Mass/Vol] 114 [...] Urobilinogen, UA 1.0 0.2 - 12 mg/dL [facility] Urinalysis macro (dipstick) panel (U)on 01-10-2024 Bilirubin, UA Negative Negative - 4(70) +++ mg/dL [facility] Blood, UA Negative Negative - 50 Andrew/mcL [facility] Clarity, UA Clear [facility] Color, UA Yellow [facility] Glucose, UA Negative Negative - 2000(110) ++++ mg/dL [facility] Interpretation and [...] Urobilinogen, UA 1.0 0.2 - 12 mg/dL [facility] URETHRITIS/DISCHARGE PLUS VA GINITIS (HTRX)on 12-14-2023 ATOPOBIUM [...] [facility] TRICHOMONAS VAGINALIS Not detected [facility] Urinalysis macro (dipstick) panel (U)on 12-13-2023 Bilirubin, [...] Urobilinogen, UA 1.0 0.2 - 12 mg/dL [facility] Urinalysis macro (dipstick) panel (U)on 11-15-2023 Bilirubin, [...] Urobilinogen, UA 1.0 0.2 - 12 mg/dL [facility] ALL CBC WITH AUTO DIFFon BASOPHILS ABSOLUTE [...] vol] 11.0 fL 9.5 - 13.5 fL [facility] EO # 0.3 [facility] PLT [address] [facility] RBC 4.38 [facility] WBC 9.2 [facility] Cytology Cervical or vaginal smear or scraping studyon 03-08-2023 [facility] CHLAMYDIA/GONOCOCCUS JESE ( AB/URINE/PAPon 06-01-2022 Chlamydia trachomatis, JESE Negative Normal Negative [facility] Comment on above: Performed By: #### P TT, PT #### [facility] [address] [address] [address] Todd Moreno Neisseria gonorrhoeae, JESE Negative Normal Negative [facility] Comment on above: Performed By: #### P TT, PT #### [facility] [address], [place] [address] Dr. Todd Moreno VAGINITIS/VAGINOSIS DNA PROB Shaheed 06-01-2022 Tatyana species Negative Normal Negative [facility] Comment on above: Performed By: #### P TT, PT #### [facility] [address], [place] [address] Dr. Todd Moreno Gardnerella vaginalis Negative Normal Negative [facility] Comment on above: Performed By: #### P TT, PT #### [facility] [address] [place] [address] Dr. Todd Moreno Trichomonas vaginalis Negative Normal Negative [facility] Comment on above: Performed By: #### P TT, PT #### [facility] [address] [address] [address] Todd Moreno HEP B SURFACE ANTIGEN SCREEN on 03-22-2022 HBsAg Screen Negative Normal Negative [facility] Comment on above: Performed By: #### H BSANS #### [facility] [address] [place] [address] Dr. Todd Moreno HEPATITIS C VIRUS AB W/ REFL EX QUANTon 03-22-2022 HCV AB 0.1 s/co ratio Normal 0.0-0.9 [facility] Comment on above: Performed By: #### P TT, PT #### [facility] [address] [place] [address] Dr. Todd Moreno Interpretation: Comment Normal [facility] Comment on above: Result Comment: Nega tive Not infected with HCV, unless recent infection is suspected or other evidence exists to indicate HCV infection. Performed By: #### P TT, PT #### [facility] [address] [place] [address] Dr. Todd Moreno HIV 1 AND 2 WITH REFLEXon HIV Screen 4th Generation wRfx Non-Reactive Normal Non Reactive [facility] Comment on above: Result Comment: HIV Negative HIV-1/HIV-2 antibodies and HIV-1 p24 antigen were NOT detected. There is no laboratory evidence of HIV infection. Performed By: #### H IV12 #### [facility] [address] [place] [address] Dr. Todd Moreno RPR QUANTon 03-22-2022 Rapid Plasma Reagin, Quant Non-Reactive Normal NonRea<1:1 [facility] Comment on above: Result Comment: Plea se Note: This test does not meet current guidelines for screening and diagnosis of syphilis. This test is intended for following treatment response in patients being treated for syphilis infection. To screen for syphilis infection, a reflex cascade that includes both RPR and a treponema-specific assay should be utilized, such as Treponema pallidum (Syphilis) Screening [place] (470985) or Rapid Plasma Reagin (RPR) Test With Reflex to Quantitative RPR and Confirmatory Treponema pallidum Antibodies (165435). Performed By: #### R PRQ #### [facility] [address] [place] [address] Dr. Todd Moreno RUBELLA AB IGGon 03-22-2022 Rubella Antibodies, IgG 5.11 index Normal Immune >0.99 [facility] Comment on above: Result Comment: Non- immune <0.90 Equivocal 0.90 - 0.99 Immune >0.99 Performed By: #### R PRQ #### [facility] [address] [place] [address] Dr. Todd Moreno CBC AUTO DIFFon 03-20-2022 BASO # 0.0 103/ul Normal 0.0-0.1 [facility] Comment on above: Performed By: #### P TT, PT #### [facility] [address] [place] [address] Dr. Todd Moreno Basophils/100 WBC (Bld) 0.3 % Normal 0.2-2.0 [facility] Comment on above: Performed By: #### P TT, PT #### [facility] [address] [place] [address] Dr. Todd Moreno EO # 0.1 103/ul Normal 0.0-0.7 [facility] Comment on above: Performed By: #### P TT, PT #### [facility] [address] [place] [address] Dr. Todd Moreno Eosinophils/100 WBC (Bld) 1.0 % Normal 0.9-7.0 [facility] Comment on above: Performed By: #### P TT, PT #### [facility] [address] [place] [address] Dr. Todd Moreno Erythrocyte distribution width (RBC) [Ratio] 14.4 % Normal 11.0-15.0 [facility] Comment on above: Performed By: #### P TT, PT #### [facility] [address] [place] [address] Dr. Todd Moreno Hematocrit (Bld) [Volume fraction] 38.2 % Normal 36.0-48.0 [facility] Comment on above: Performed By: #### P TT, PT #### [facility] [address] [place] [address] Dr. Todd Moreno Hemoglobin (Bld) [Mass/Vol] 12.2 g/dL Normal 12.0-16.0 [facility] Comment on above: Performed By: #### P TT, PT #### [facility] [address] [place] [address] Dr. Todd Moreno IG # 0.03 10e3/ul Normal 0.00-0.03 [facility] Comment on above: Performed By: #### P TT, PT #### [facility] [address] [place] [address] Dr. Todd Moreno IG % 0.3 % Normal 0.0-0.5 [facility] Comment on above: Performed By: #### P TT, PT #### [facility] [address] [place] [address] Dr. Todd Moreno LYMPH # 1.9 103/ul Normal 1.2-3.8 [facility] Comment on above: Performed By: #### P TT, PT #### [facility] [address] [place] [address] Dr. Todd Moreno Lymphocytes/100 WBC (Bld) 19.0 % Critically low 20.5-60.0 [facility] Comment on above: Performed By: #### P TT, PT #### [facility] [address] [place] [address] Dr. Todd Moreno MANUAL DIFF REQ NO Normal [facility] Comment on above: Performed By: #### P TT, PT #### [facility] [address] [place] [address] Dr. Todd Moreno MCH (RBC) [Entitic mass] 26.1 pg Critically low 26.7-34.0 [facility] Comment on above: Performed By: #### P TT, PT #### [facility] [address] [place] [address] Dr. Todd Moreno MCHC (RBC) [Mass/Vol] 31.9 g/dL Normal 29.9-35.2 [facility] Comment on above: Performed By: #### P TT, PT #### [facility] [address] [address] [address] Todd Moreno MCV (RBC) [Entitic vol] 81.6 fL Normal 81.0-99.0 [facility] Comment on above: Performed By: #### P TT, PT #### [facility] [address] [address] [address] Todd Moreno MONO # 0.4 103/ul Normal 0.3-0.8 [facility] Comment on above: Performed By: #### P TT, PT #### [facility] [address] [place] [address] Dr. Todd Moreno Monocytes/100 WBC (Bld) 4.4 % Normal 1.7-12.0 [facility] Comment on above: Performed By: #### P TT, PT #### [facility] [address] [place] [address] Dr. Todd Moreno NEUT # 7.5 103/ul Critically high 1.4-6.5 [facility] Comment on above: Performed By: #### P TT, PT #### [facility] [address] [place] [address] Dr. Todd Moreno Neutrophils/100 WBC (Bld) 75.0 % Normal 43.0-75.0 [facility] Comment on above: Performed By: #### P TT, PT #### [facility] [address] [place] [address] Dr. Todd Moreno Platelet mean volume (Bld) [Entitic vol] 10.4 fL Normal 9.5-13.5 [facility] Comment on above: Performed By: #### P TT, PT #### [facility] [address] [place] [address] Dr. Todd Moreno PLT 302 103/ul Normal 150-450 [facility] Comment on above: Performed By: #### P TT, PT #### [facility] [address] [place] [address] Dr. Todd Moreno RBC 4.68 106/ul Normal 4.20-5.40 [facility] Comment on above: Performed By: #### P TT, PT #### [facility] [address] [place] [address] Dr. Todd Moreno WBC 10.1 103/ul Normal 4.0-11.0 [facility] Comment on above: Performed By: #### P TT, PT #### [facility] [address] [place] [address] Dr. Todd Moreno CULTURE URINEon 03-20-2022 CULTURE URINE Culture Observations : MODERATE GROWTH OF MIXED GENITAL LORA. NO POTENTIAL PATHOGENS SEEN. Normal [facility] Comment on above: Performed By: #### P TT, PT #### [facility] [address] [place] [address] Dr. Todd Moreno GLYCOHEMOGLOBIN A1Con 2022 ADA RECOMMENDATION SEE BELOW Normal [facility] Comment on above: Result Comment: ADA RECOMMENDED LIMIT 4.0 - 6.0 ADA THERAPEUTIC TARGET < 7.0 ACTION SUGGESTED > 7.0 Performed By: #### A 1C #### [facility] [address] [place] [address] Dr. Todd Moreno Glucose [Mass/Vol] 105 mg/dL Normal [facility] Comment on above: Performed By: #### A 1C #### [facility] [address] [place] [address] Dr. Todd Moreno HbA1c (Bld) [Mass fraction] 5.3 % Normal 4.5-6.2 [facility] Comment on above: Performed By: #### A 1C #### [facility] [address] [place] [address] Dr. Todd Moreno BENJAMIN BOX TEST PT SEND OUTo n 03-20-2022 SENT TO REF LAB 03/20/2022 Normal [facility] Comment on above: Performed By: #### P TT, PT #### [facility] [address] [place] [address] Dr. Todd Moreno TYPE AND SCREENon 03-20-2022 TYPE AND SCREEN Negative Normal [facility] Comment on above: Performed By: #### P TT, PT #### [facility] [address], [place] [address] Dr. Todd Moreno US PREG TVon 02-24-2022 [...] CARIDAD DOBSON Date: 2022-02-24 16:16 Normal [facility] CULTURE URINEon 02-03-2022 CULTURE URINE [...] F Oxacillin 0.5 S F Normal [facility] Comment on above: Performed By: #### P TT, PT #### [facility] [address], [place] [address] Dr. Todd Moreno US PREG TVon 02-01-2022 [...] ETHAN MERCER Date: 2022-01-31 22:05 Normal [facility] CBC AUTO DIFFon 01-31-2022 BASO # 0.1 103/ul Normal 0.0-0.1 [facility] Comment on above: Performed By: #### P TT, PT #### [facility] [address] [address] [address] Todd Moreno Basophils/100 WBC (Bld) 0.8 % Normal 0.2-2.0 [facility] Comment on above: Performed By: #### P TT, PT #### [facility] [address] [address] [address] Todd Moreno EO # 0.5 103/ul Normal 0.0-0.7 [facility] Comment on above: Performed By: #### P TT, PT #### [facility] [address] [address] [address] Todd Moreno Eosinophils/100 WBC (Bld) 5.4 % Normal 0.9-7.0 [facility] Comment on above: Performed By: #### P TT, PT #### [facility] [address] [place] [address] Dr. Todd Moreno Erythrocyte distribution width (RBC) [Ratio] 15.0 % Normal 11.0-15.0 [facility] Comment on above: Performed By: #### P TT, PT #### [facility] [address] [place] [address] Dr. Todd Moreno Hematocrit (Bld) [Volume fraction] 34.3 % Critically low 36.0-48.0 [facility] Comment on above: Performed By: #### P TT, PT #### [facility] [address] [place] [address] Dr. Todd Moreno Hemoglobin (Bld) [Mass/Vol] 11.2 g/dL Critically low 12.0-16.0 [facility] Comment on above: Performed By: #### P TT, PT #### [facility] [address] [place] [address] Dr. Todd Moreno IG # 0.02 10e3/ul Normal 0.00-0.03 [facility] Comment on above: Performed By: #### P TT, PT #### [facility] [address] [place] [address] Dr. Todd Moreno IG % 0.2 % Normal 0.0-0.5 [facility] Comment on above: Performed By: #### P TT, PT #### [facility] [address] [place] [address] Dr. Todd Moreno LYMPH # 2.7 103/ul Normal 1.2-3.8 [facility] Comment on above: Performed By: #### P TT, PT #### [facility] [address] [place] [address] Dr. Todd Moreno Lymphocytes/100 WBC (Bld) 29.9 % Normal 20.5-60.0 [facility] Comment on above: Performed By: #### P TT, PT #### [facility] [address] [place] [address] Dr. Todd Moreno MANUAL DIFF REQ NO Normal [facility] Comment on above: Performed By: #### P TT, PT #### [facility] [address] [place] [address] Dr. Todd Moreno MCH (RBC) [Entitic mass] 26.7 pg Normal 26.7-34.0 [facility] Comment on above: Performed By: #### P TT, PT #### [facility] [address] [place] [address] Dr. Todd Moreno MCHC (RBC) [Mass/Vol] 32.7 g/dL Normal 29.9-35.2 [facility] Comment on above: Performed By: #### P TT, PT #### [facility] [address] [place] [address] Dr. Todd Moreno MCV (RBC) [Entitic vol] 81.7 fL Normal 81.0-99.0 [facility] Comment on above: Performed By: #### P TT, PT #### [facility] [address] [place] [address] Dr. Todd Moreno MONO # 0.5 103/ul Normal 0.3-0.8 [facility] Comment on above: Performed By: #### P TT, PT #### [facility] [address] [place] [address] Dr. Todd Moreno Monocytes/100 WBC (Bld) 5.7 % Normal 1.7-12.0 [facility] Comment on above: Performed By: #### P TT, PT #### [facility] [address] [place] [address] Dr. Todd Moreno NEUT # 5.2 103/ul Normal 1.4-6.5 [facility] Comment on above: Performed By: #### P TT, PT #### [facility] [address] [place] [address] Dr. Todd Moreno Neutrophils/100 WBC (Bld) 58.0 % Normal 43.0-75.0 [facility] Comment on above: Performed By: #### P TT, PT #### [facility] [address] [place] [address] Dr. Todd Moreno Platelet mean volume (Bld) [Entitic vol] 10.4 fL Normal 9.5-13.5 [facility] Comment on above: Performed By: #### P TT, PT #### [facility] [address] [place] [address] Dr. Todd Moreno PLT 270 103/ul Normal 150-450 [facility] Comment on above: Performed By: #### P TT, PT #### [facility] [address] [place] [address] Dr. Todd Moreno RBC 4.20 106/ul Normal 4.20-5.40 [facility] Comment on above: Performed By: #### P TT, PT #### [facility] [address] [place] [address] Dr. Todd Moreno WBC 9.1 103/ul Normal 4.0-11.0 [facility] Comment on above: Performed By: #### P TT, PT #### [facility] [address] [place] [address] Dr. Todd Moreno ER URINE PROFILEon 2 Bilirubin Ql (U) Negative Normal NEGATIVE [facility] Comment on above: Performed By: #### P TT, PT #### [facility] [address] [place] [address] Dr. Todd Moreno Clarity (U) CLEAR Normal CLEAR [facility] Comment on above: Performed By: #### P TT, PT #### [facility] [address] [place] [address] Dr. Todd Moreno Color (U) YELLOW Normal YELLOW [facility] Comment on above: Performed By: #### P TT, PT #### [facility] [address] [place] [address] Dr. Todd Moreno ERUAHD A micrscopic examination will be performed if indicated. Normal [facility] Comment on above: Performed By: #### P TT, PT #### [facility] [address] [place] [address] Dr. Todd Moreno Glucose Ql (U) Negative Normal NEGATIVE [facility] Comment on above: Performed By: #### P TT, PT #### [facility] [address] [place] [address] Dr. Todd Moreno Hemoglobin Ql (U) TRACE-INTACT Abnormal NEGATIVE [facility] Comment on above: Performed By: #### P TT, PT #### [facility] [address] [place] [address] Dr. Todd Moreno Ketones Ql (U) Negative Normal NEGATIVE [facility] Comment on above: Performed By: #### P TT, PT #### [facility] [address] [place] [address] Dr. Todd Moreno LEUKOCYTES SMALL Abnormal NEGATIVE [facility] Comment on above: Performed By: #### P TT, PT #### [facility] [address] [place] [address] Dr. Todd Moreno Nitrite Ql (U) Negative Normal NEGATIVE [facility] Comment on above: Performed By: #### P TT, PT #### [facility] [address] [place] [address] Dr. Todd Moreno pH (U) 6.5 [pH] Normal 5-9 [facility] Comment on above: Performed By: #### P TT, PT #### [facility] [address] [place] [address] Dr. Todd Moreno SPEC GRAVITY 1.015 Normal 1.005-<=1.025 [facility] Comment on above: Performed By: #### P TT, PT #### [facility] [address] [place] [address] Dr. Todd Moreno UA PROTEIN Negative Normal NEGATIVE/ TRACE [facility] Comment on above: Performed By: #### P TT, PT #### [facility] [address] [place] [address] Dr. Todd Moreno UR MICRO IND INDICATED Normal [facility] Comment on above: Performed By: #### P TT, PT #### [facility] [address] [place] [address] Dr. Todd Moreno Urobilinogen Qn (U) 0.2 {Tiffany'U}/dL Normal 0.2 - 1. 0 [facility] Comment on above: Performed By: #### P TT, PT #### [facility] [address] [place] [address] Dr. Todd Morneo LIPASEon 01-31-2022 Lipase [Catalytic activity/Vol] 123.0 U/L Normal 73.0-393.0 [facility] Comment on above: Performed By: #### C MP, LIPA #### [facility] [address] [place] [address] Dr. Todd Moreno PREG QUANT HCGon 01-31-2022 HCG QUANT 711 mIU/mL Normal [facility] Comment on above: Performed By: #### P TT, PT #### [facility] [address] [place] [address] Dr. Todd Moreno HCG RANGE SEE BELOW Normal [facility] Comment on above: Result Comment: 5-50 0.2-1 WEEK 50-500 1-2 WEEKS 100-5,000 2-3 WEEKS 500-10,000 3-4 WEEKS 1,000-50,000 4-5 WEEKS 10,000-100,000 5-6 WEEKS 15,000-200,000 6-8 WEEKS 10,000-100,000 2-3 MONTHS Performed By: #### P TT, PT #### [facility] [address] [place] [address] Dr. Todd Moreno PROF 14(COMP METB)on 022 Albumin [Mass/Vol] 3.7 g/dL Normal 3.4-5.0 [facility] Comment on above: Performed By: #### C MP, LIPA #### [facility] [address] [place] [address] Dr. Todd Moreno Albumin/Globulin [Mass ratio] 1.0 {ratio} Normal [facility] Comment on above: Performed By: #### C MP, LIPA #### [facility] [facility] [address] [place] [address] Dr. Todd Moreno ALP [Catalytic activity/Vol] 80 U/L Normal 46-116 [facility] Comment on above: Performed By: #### C MP, LIPA #### [facility] [address] [place] [address] Dr. Todd Moreno ALT [Catalytic activity/Vol] 23 U/L Normal 14-59 [facility] Comment on above: Performed By: #### C MP, LIPA #### [facility] [address] [place] [address] Dr. Todd Moreno Anion gap [Moles/Vol] 10.2 mmol/L Normal [facility] Comment on above: Performed By: #### C MP, LIPA #### [facility] [address] [place] [address] Dr. Todd Moreno AST [Catalytic activity/Vol] 14 U/L Critically low 15-37 [facility] Comment on above: Performed By: #### C MP, LIPA #### [facility] [address] [place] [address] Dr. Todd Moreno Bilirubin [Mass/Vol] 0.3 mg/dL Normal 0.2-1.0 [facility] Comment on above: Performed By: #### C MP, LIPA #### [facility] [address] [place] [address] Dr. Todd Moreno Calcium [Mass/Vol] 9.1 mg/dL Normal 8.5-10.1 [facility] Comment on above: Performed By: #### C MP, LIPA #### [facility] [address] [place] [address] Dr. Todd Moreno Chloride [Moles/Vol] 104 mmol/L Normal 98-107 [facility] Comment on above: Performed By: #### C MP, LIPA #### [facility] [address] [place] [address] Dr. Todd Moreno CO2 [Moles/Vol] 26.8 mmol/L Normal 21.0-32.0 [facility] Comment on above: Performed By: #### C MP, LIPA #### [facility] [address] [place] [address] Dr. Todd Moreno Creatinine [Mass/Vol] 0.87 mg/dL Normal 0.55-1.02 [facility] Comment on above: Performed By: #### C MP, LIPA #### [facility] [address] [place] [address] Dr. Todd Moreno EGFR-AF GAMBIAN >60 Normal >=60 [facility] Comment on above: Performed By: #### C MP, LIPA #### [facility] [address] [place] [address] Dr. Todd Moreno EGFR-NON AF GAMBIAN >60 Normal >=60 [facility] Comment on above: Performed By: #### C MP, LIPA #### [facility] [address] [place] [address] Dr. Todd Moreno Globulin (S) [Mass/Vol] 3.7 g/dL Normal [facility] Comment on above: Performed By: #### C MP, LIPA #### [facility] [address] [place] [address] Dr. Todd Moreno Glucose [Mass/Vol] 98 mg/dL Normal 74-106 [facility] Comment on above: Performed By: #### C MP, LIPA #### [facility] [address] [place] [address] Dr. Todd Moreno Potassium [Moles/Vol] 4.0 mmol/L Normal 3.5-5.1 [facility] Comment on above: Performed By: #### C MP, LIPA #### [facility] [address] [place] [address] Dr. Todd Moreno Protein [Mass/Vol] 7.4 g/dL Normal 6.4-8.2 [facility] Comment on above: Performed By: #### C MP, LIPA #### [facility] [address] [place] [address] Dr. Todd Moreno Sodium [Moles/Vol] 137 mmol/L Normal 136-145 [facility] Comment on above: Performed By: #### C MP, LIPA #### [facility] [address] [place] [address] Dr. Todd Moreno Urea nitrogen [Mass/Vol] 15.0 mg/dL Normal 7.0-18.0 [facility] Comment on above: Performed By: #### C MP, LIPA #### [facility] [address] [place] [address] Dr. Todd Moreno Urea nitrogen/Creatinine [Mass ratio] 17.2 mg/mg Normal [facility] Comment on above: Performed By: #### C MP, LIPA #### [facility] [address] [place] [address] Dr. Todd Moreno URINE MICROSCOPIC ONLYon BACTERIA SMALL Abnormal NONE SEEN [facility] Comment on above: Performed By: #### P TT, PT #### [facility] [address] [place] [address] Dr. Todd Moreno Bacteria identified Cx Nom (U) INDICATED Normal [facility] Comment on above: Performed By: #### P TT, PT #### [facility] [address] [place] [address] Dr. Todd Moreno CAST NONE SEEN Normal NONE SEEN [facility] Comment on above: Performed By: #### P TT, PT #### [facility] [address] [place] [address] Dr. Todd Moreno Crystals LM Nom (Urine sed) NONE SEEN Normal NONE SEEN [facility] Comment on above: Performed By: #### P TT, PT #### [facility] [address] [place] [address] Dr. Todd Moreno Epithelial cells LM Ql (Urine sed) FEW Abnormal NONE SEEN /RARE [facility] Comment on above: Performed By: #### P TT, PT #### [facility] [address] [place] [address] Dr. Todd Moreno MUCOUS NONE SEEN Normal NONE SEEN [facility] Comment on above: Performed By: #### P TT, PT #### [facility] [address] [place] [address] Dr. Todd Moreno RBC 0-2 Normal 0-2 [facility] Comment on above: Performed By: #### P TT, PT #### [facility] [address] [place] [address] Dr. Todd Moreno WBC 10-20 Abnormal NONE SEEN [facility] Comment on above: Performed By: #### P TT, PT #### [facility] [address] [place] [address] Dr. Todd Moreno ESTROGENon 10-20-2021 Estrogens, Total 68 pg/mL Normal [facility] Comment on above: Result Comment: Prep ubertal < 40 Female Cycle: 1-10 Days 16 - 328 11-20 Days 34 - 501 21-30 Days 48 - 350 Post-Menopausal 40 - 244 Performed By: #### P TT, PT #### [facility] [address] [address] [address] Todd Moreno ESTRADIOLon 10-16-2021 Estradiol 62.1 pg/mL Normal [facility] Comment on above: Result Comment: Adul t Female: Follicular phase 12.5 - 166.0 Ovulation phase 85.8 - 498.0 Luteal phase 43.8 - 211.0 Postmenopausal <6.0 - 54.7 1st trimester 215.0 - >4300.0 Ramos ECLIA methodology Performed By: #### E STRADI #### [facility] [address] [address] [address] Todd Moreno FSHon 10-16-2021 FSH 5.6 mIU/mL Normal [facility] Comment on above: Result Comment: Adul t Female: Follicular phase 3.5 - 12.5 Ovulation phase 4.7 - 21.5 Luteal phase 1.7 - 7.7 Postmenopausal 25.8 - 134.8 Performed By: #### P TT, PT #### [facility] [address] [address] [address] Todd Moreno LUTEINIZING HORMONE (LH)on 0 10-16-2021 LH 12.1 mIU/mL Normal [facility] Comment on above: Result Comment: Adul t Female: Follicular phase 2.4 - 12.6 Ovulation phase 14.0 - 95.6 Luteal phase 1.0 - 11.4 Postmenopausal 7.7 - 58.5 Performed By: #### P TT, PT #### [facility] [address] [address] [address] Todd Moreno CBC AUTO DIFFon 10-15-2021 BASO # 0.0 103/ul Normal 0.0-0.1 [facility] Comment on above: Performed By: #### P TT, PT #### [facility] [address] [place] [address] Dr. Todd Moreno Basophils/100 WBC (Bld) 0.6 % Normal 0.2-2.0 [facility] Comment on above: Performed By: #### P TT, PT #### [facility] [address] [place] [address] Dr. Todd Moreno EO # 0.1 103/ul Normal 0.0-0.7 [facility] Comment on above: Performed By: #### P TT, PT #### [facility] [address] [place] [address] Dr. Todd Moreno Eosinophils/100 WBC (Bld) 2.1 % Normal 0.9-7.0 [facility] Comment on above: Performed By: #### P TT, PT #### [facility] [address] [place] [address] Dr. Todd Moreno Erythrocyte distribution width (RBC) [Ratio] 14.0 % Normal 11.0-15.0 [facility] Comment on above: Performed By: #### P TT, PT #### [facility] [address] [place] [address] Dr. Todd Moreno Hematocrit (Bld) [Volume fraction] 37.0 % Normal 36.0-48.0 [facility] Comment on above: Performed By: #### P TT, PT #### [facility] [address] [place] [address] Dr. Todd Moreno Hemoglobin (Bld) [Mass/Vol] 11.6 g/dL Critically low 12.0-16.0 [facility] Comment on above: Performed By: #### P TT, PT #### [facility] [address] [place] [address] Dr. Todd Moreno IG # 0.01 10e3/ul Normal 0.00-0.03 [facility] Comment on above: Performed By: #### P TT, PT #### [facility] [address] [place] [address] Dr. Todd Moreno IG % 0.2 % Normal 0.0-0.5 [facility] Comment on above: Performed By: #### P TT, PT #### [facility] [address] [place] [address] Dr. Todd Moreno LYMPH # 2.2 103/ul Normal 1.2-3.8 [facility] Comment on above: Performed By: #### P TT, PT #### [facility] [address] [place] [address] Dr. Todd Moreno Lymphocytes/100 WBC (Bld) 33.1 % Normal 20.5-60.0 [facility] Comment on above: Performed By: #### P TT, PT #### [facility] [address] [place] [address] Dr. Todd Moreno MANUAL DIFF REQ NO Normal [facility] Comment on above: Performed By: #### P TT, PT #### [facility] [address] [place] [address] Dr. Todd Moreno MCH (RBC) [Entitic mass] 26.3 pg Critically low 26.7-34.0 [facility] Comment on above: Performed By: #### P TT, PT #### [facility] [address] [place] [address] Dr. Todd Moreno MCHC (RBC) [Mass/Vol] 31.4 g/dL Normal 29.9-35.2 [facility] Comment on above: Performed By: #### P TT, PT #### [facility] [address] [place] [address] Dr. Todd Moreno MCV (RBC) [Entitic vol] 83.9 fL Normal 81.0-99.0 [facility] Comment on above: Performed By: #### P TT, PT #### [facility] [address] [place] [address] Dr. Todd Moreno MONO # 0.2 103/ul Critically low 0.3-0.8 [facility] Comment on above: Performed By: #### P TT, PT #### [facility] [address] [place] [address] Dr. Todd Moreno Monocytes/100 WBC (Bld) 3.5 % Normal 1.7-12.0 [facility] Comment on above: Performed By: #### P TT, PT #### [facility] [address] [address] [address] Todd Moreno NEUT # 4.0 103/ul Normal 1.4-6.5 [facility] Comment on above: Performed By: #### P TT, PT #### [facility] [address] [address] [address] Todd Moreno Neutrophils/100 WBC (Bld) 60.5 % Normal 43.0-75.0 [facility] Comment on above: Performed By: #### P TT, PT #### [facility] [address] [address] [address] Todd Moreno Platelet mean volume (Bld) [Entitic vol] 10.6 fL Normal 9.5-13.5 [facility] Comment on above: Performed By: #### P TT, PT #### [facility] [address] [place] [address] Dr. Todd Moreno PLT 263 103/ul Normal 150-450 [facility] Comment on above: Performed By: #### P TT, PT #### [facility] [address] [place] [address] Dr. Todd Moreno RBC 4.41 106/ul Normal 4.20-5.40 [facility] Comment on above: Performed By: #### P TT, PT #### [facility] [address] [address] [address] Todd Moreno WBC 6.6 103/ul Normal 4.0-11.0 [facility] Comment on above: Performed By: #### P TT, PT #### [facility] [address] [place] [address] Dr. Todd Moreno FREE T4on 10-15-2021 Free T4 [Mass/Vol] 1.05 ng/dL Normal 0.76-1.46 [facility] Comment on above: Performed By: #### P TT, PT #### [facility] [address] [address] [address] Todd Moreno PROTIMEon 10-15-2021 INR Coag (PPP) [Relative time] 1.02 {INR} Normal [facility] Comment on above: Performed By: #### P TT, PT #### [facility] [address] [place] [address] Dr. Todd Moreno INR GUIDELINES SEE BELOW Normal [facility] Comment on above: Result Comment: RAMÓN RED INR: 2.0 - 3.0 CONDITIONS NOT LISTED BELOW 2.5 - 3.5 FOR PROSTHETIC HEART VALVE REPLACEMENT 2.5 - 3.5 RECURRENT THROMBOSIS Performed By: #### P TT, PT #### [facility] [address] [place] [address] Dr. Todd Moreno PT Coag (PPP) [Time] 11.0 s Normal 9.0-11.6 [facility] Comment on above: Performed By: #### P TT, PT #### [facility] [address] [place] [address] Dr. Todd Moreno PTTon 10-15-2021 aPTT Coag (Bld) [Time] 32.4 s Normal 22.3-36.2 [facility] Comment on above: Performed By: #### P TT, PT #### [facility] [address] [place] [address] Dr. Todd Moreno TSHon 10-15-2021 TSH 1.777 uIU/mL Normal 0.358-3.740 [facility] Comment on above: Performed By: #### P TT, PT #### [facility] [address] [place] [address] Dr. Todd Moreno PAP ACOG PANEL 2: 30 to 65on 10-10-2021 . . Normal [facility] Comment on above: Result Comment: Perf ormed at: WB Performed By: #### [id number] #### [facility] [address] [place] [address] Dr. Todd Moreno Age Gdln ACOG Testing - [facility] Comment on above: Performed By: #### [id number] #### [facility] [address] [place] [address] Dr. Todd Moreno DIAGNOSIS: Comment Normal [facility] Comment on above: Result Comment: NEGA TIVE FOR INTRAEPITHELIAL LESION OR MALIGNANCY. Performed at: WB Performed By: #### [id number] #### [facility] [address] [place] [address] Dr. Todd Moreno HPV Aptima Negative Normal Negative [facility] Comment on above: Result Comment: This nucleic acid amplification test detects fourteen high-risk HPV types (16,18,31,33,35,39,45,51,52,56,58,59,66,68) without differentiation. Performed at: =G Performed By: #### [id number] #### [facility] [address] [place] [address] Dr. Todd Moreno Methodology: Comment Normal [facility] Comment on above: Result Comment: This liquid based ThinPrep(R) pap test was screened with the use of an image guided system. Performed at: WB Performed By: #### [id number] #### [facility] [address] [place] [address] Dr. Todd Moreno Note: Comment Normal [facility] Comment on above: Result Comment: The Pap smear is a screening test designed to aid in the detection of premalignant and malignant conditions of the uterine cervix. It is not a diagnostic procedure and should not be used as the sole means of detecting cervical cancer. Both false-positive and false-negative reports do occur. . Performed at: WB Performed By: #### [id number] #### [facility] [address] [place] [address] Dr. Todd Moreno Performed by: Comment Normal [facility] Comment on above: Result Comment: Magalie Lemus, Wafer Abrading Machine Tender (ASCP) Performed at: WB Performed By: #### [id number] #### [facility] [address] [place] [address] Dr. Todd Moreno Specimen adequacy: Comment Normal [facility] Comment on above: Result Comment: Sati sfactory for evaluation. Endocervical and/or squamous metaplastic cells (endocervical component) are present. Performed at: WB Performed By: #### [id number] #### [facility] [address] [place] [address] Dr. Todd Moreno COVID-19 Antigenon 2 COVID-19 [...] its performance Corinne Disclaimer characteristic determined by [employer] and Corinne Disclaimer validated at [facility]. This Corinne Disclaimer test has not [...] is terminated or revoked sooner. PERFORMED BY: [place] [address] PATHOLOGIST JACK FRAME TENDER JONATHAN SHEPARD M.D. [facility] Comment on above: Performed By: #### S OFIANEG, COVID-19 CORINNE #### [facility] [address] [place] [address] HCG,Urineon 03-30-2021 Beta HCG ( test) Ql (U) Negative [facility] Comment on above: Result Comment: PERF ORMED BY: [place] [address] PATHOLOGIST JACK FRAME TENDER JONATHAN SHEPARD M.D. Performed By: #### U HCG #### [facility] [address] [place] [address] Corinne Ag Negativeon 03-30-19 Corinne Ag Negative Negative Normal Negative [facility] Comment on above: Result Comment: This is a duplicate Corinne SARS Antigen (KAEL) result to be used for statistical tracking purpose only. PERFORMED BY: [place] [address] PATHOLOGIST JACK FRAME TENDER JONATHAN SHEPARD M.D. Performed By: #### S OFNERIS, COVID-19 CORINNE #### [address] [facility] SARS-CoV-2 (COVID-19) RNA JESE+probe Ql (Unsp spec) Negative Normal Negative [facility] Comment on above: Order Comment: Healt hcare Worker?: N Result Comment: Testing for SARS-CoV-2 by RT-PCR This test was developed and its performance characteristics determined by [employer]) and validated at the [facility]. This test has not been FDA [...] is terminated or revoked sooner. PERFORMED BY: [place] [address] PATHOLOGIST JACK FRAME TENDER JONATHAN SHEPARD M.D. Performed By: #### C OVID 19 [facility] #### [address] [id number] [facility] XR elbow LT 2Von 03-01-2021 XR elbow LT 2V [facility] [address] [place] [address] XRay Report Signed Patient: Moira Almaguer MR#: [id number] : 1985 Acct:[id number] Age/Sex: 35 / F ADM Date: 03/01/21 [...] Valdez Mcwilliams M.D.03/01/2021 1:47 PM Dictation Location: [place] [address] Transcribed By: [facility] 03/01/21 1347 Dictated By: Valdez Mcwilliams DO 03/01/21 1344 Signed By: 03/01/21 1347 [facility] XR FOREARM LEFT 2 VIEWSon XR [...] are recommended in 7 to 10 days. [facility]/[employer] Workstation ID: [id number] Dictated by: MAR DAWSON on SunSep 08, 2020 11:41:42 PM EDT Transcribed by: SHERRILL SMYTH on SunSep 09, 2020 12:10:05 AM EDT Finalized by: MAR DAWSON on SunSep 09, 2020 12:16:26 AM EDT [facility] Comment on above: Order Comment: [...] 11:42:00 PM EDT [facility] Comment on above: Order Comment: [...] [Ratio] 35.71 kg/m2 Iveth MCGRATH Work Phone: [facility] 03-25-2024 14:23-0500 Body weight 103.42 kg Iveth MCGRATH Work Phone: [facility] 03-25-2024 14:23-0500 Diastolic blood pressure 70 mm[Hg] Iveth Abbott PA Work Phone: [facility] 03-25-2024 14:23-0500 Systolic blood pressure 108 mm[Hg] Iveth Hood PA Work Phone: [facility] 02-20-2024 11:40-0500 Body mass index (BMI) [Ratio] [...] pressure 70 mm[Hg] Iveth MCGRATH Work Phone: [facility] 02-07-2024 11:42-0500 Systolic blood pressure 118 mm[Hg] Iveth MCGRATH Work Phone: [facility] 01-10-2024 10:44-0400 [...] Body height 170.18 cm Leandro Olexa Other [employer] Other 03-01-2021 11:00-0500 Body mass index (BMI) [Ratio] 30.07 kg/m2 Leandro Olexa Other [employer] Other 03-01-2021 11:00-0500 Body weight 87.09 kg Leandro Olexa Other [employer] Other Encounters Encounter Date Encounter Type [...] Start: 02-04-2024 End: 02-04-2024 ambulatory ROB [facility] Start: 01-30-2024 End: 01-30-2024 ambulatory SRIDEVI FREITAS [facility] Start: 01-23-2024 End: 01-23-2024 Telephone encounter Emily Alfaro DO Work Phone: [facility] Start: 01-10-2024 End: 01-10-2024 Bamboo flowsheet Rogers James DO Work Phone: [facility] Start: 01-10-2024 End: 01-10-2024 Bamboo flowsheet Rogers James DO Work Phone: [facility] Start: 01-10-2024 End: 01-10-2024 flow sheet Rogers James DO Work Phone: [facility] Comment on above: Second trimester pre gnancy; 23 weeks gestation of Start: 01-10-2024 End: 01-10-2024 ambulatory ROGERS JAMES Not Available Start: 01-07-2024 End: 01-07-2024 ambulatory ROB GONZALES [facility] Start: 12-24-2023 End: 12-24-2023 ambulatory SRIDEVI FREITAS [facility] Start: 12-13-2023 End: 12-13-2023 Bamboo flowsheet Rogers James DO Work Phone: [facility] Start: 12-13-2023 End: 12-14-2023 Bamboo flowsheet Rogers James DO Work Phone: [facility] Start: 12-13-2023 End: 12-14-2023 External Result Encounter Rogers James DO Work Phone: [facility] External Department Unsolicited Start: 12-13-2023 End: 12-13-2023 ambulatory ROGERS JAMES Not Available Start: 12-13-2023 End: 12-13-2023 flow sheet Rogers James DO Work Phone: [facility] Comment on above: 19 weeks gestation o f ; Exposure to STD; Vaginal discharge; Elevated glucose Start: 11-15-2023 End: 11-15-2023 Bamboo flowsheet Rogers James DO Work Phone: [facility] Start: 11-15-2023 End: 11-15-2023 Bamboo flowsheet Rogers James DO Work Phone: [facility] Start: 11-15-2023 End: 11-15-2023 ambulatory ROGERS JAMES Not Available Start: 11-15-2023 End: 11-15-2023 flow sheet Rogers James DO Work Phone: [facility] Comment on above: Second [...] 03-01-2021 End: 03-01-2021 ambulatory Leandro Robles Other [employer] Other Start: 03-01-2021 Encounter for other preprocedural examination Leandro Robles [facility] Start: 03-01-2021 Office outpatient ne w 45 minutes Leandro Robles [facility] Start: 09-09-2020 End: 09-09-2020 Emergency department patient visit HUBER PIPER [facility] Procedures Date Procedure Procedure Detail Performing Clinician [...] Screening for malign ant neoplasm of cervix [facility] Start: 10-05-2026 Screening for malign ant neoplasm of cervix [facility] Start: 04-09-2024 End: 04-09-2024 Patient encounter procedure 04/09/2024 1:30 PM EST Routine [facility] [address] [place] [id number] Rogers Ramirez, DO [address] [place] [address] [facility] Start: 03-24-2024 End: 03-24-2024 Patient encounter procedure 03/24/2024 11:20 AM EST Routine [facility] [address] [place], [place] [address] [address] Iveth Hood PA [address] [place] [address] [facility] Start: 03-10-2024 End: 03-10-2025 [...] AM EST Routine [facility] [address] [place] [address] [place] [phone] Rogers Ramirez, DO [address] [place] [address] [facility] Start: 02-20-2024 End: 02-19-2025 CBC panel - Blood by Automated count CBC Lab Routine Diabetes mellitus screening Expected: 02/20/2024 (Approximate), Expires: 02/19/2025 [facility] Work Phone: Comment on above: Expected: 02/20/2024 (Approximate), Expires: 02/19/2025 Start: 02-20-2024 End: 02-20-2024 Patient encounter procedure 02/20/2024 11:00 AM EST Routine [facility] [address] [place] [id number] Rogers Ramirez DO [address] [place] [address] [facility] Start: 02-07-2024 End: 02-06-2025 US for US OB SCAN FOR GROWTH Imaging Routine size consistent with dates during in second trimester Expected: 02/07/2024 (Approximate), Expires: 02/06/2025 [facility] Work Phone: Comment on above: Expected: 02/07/2024 (Approximate), Expires: 02/06/2025 Start: 02-07-2024 End: 02-07-2024 Patient encounter procedure 02/07/2024 11:20 AM EST Routine [facility] [address] [id number] Iveth Hood PA [address] [facility] [place] [address] [facility] Start: 01-10-2024 End: 01-10-2024 Patient encounter procedure [facility] Comment on above: Arrived Start: 12-17-2023 End: 12-17-2023 Professional / ancillary services management 12/17/2023 8:00 AM EDT Ancillary Procedure [facility] [address] [facility] [place] [phone] [facility] Start: 12-13-2023 End: 01-12-2024 Alpha fetoprotein, maternal Alpha fetoprotein, maternal Lab Routine 19 weeks gestation of Expected: 12/13/2023 (Approximate), Expires: 01/12/2024 [facility] Comment on above: Expected: 12/13/2023 (Approximate), Expires: 01/12/2024 Start: 12-13-2023 End: 12-13-2023 Patient encounter procedure 12/13/2023 10:10 AM EDT Routine [facility] [address] [facility] [place] [id number] Rogers Ramirez, DO [address] [place] [address] [facility] Start: 11-18-2023 Influenza vaccination [...] encounter procedure 11/15/2023 9:50 AM EDT Routine [facility] [address] [facility] [place] [id number] Rogers Ramirez, DO [address] [place] [address] [facility] CHLAMYDIA TRACHOMATI S (GENITO/STI) [...] and Cytology Routine Vaginal discharge Ordered: 12/13/2023 [facility] Work Phone: Comment on above: Ordered: 12/13/2023 Immunizations Immunization Date Immunization Notes Care Provider Sarah [facility] 12-26-2016 influenza virus vacc ine, unspecified formulation Iveth MCGRATH Work Phone: [facility] Payers Date Payer Category Payer Private Health Insurance [id number] 2021 Private Health Insurance [employer] [id number] 2021 Unknown FRONTPATH FRONTP ATH [id number] 2021-Present [phone] [address] [id number]. [id number] 2019 Unknown [id number] 1986 Unknown [id number] 2.16.840.1.184095.3.579.2. 902 1986 Unknown [id number] 2.16.840.1.925449.3.579.2. 593 1986 Unknown [id number] 2.16.840.1.074190.3.579.2. 593 1986 Unknown [id number] 2.16.840.1.774058.3.579.2. 593 1986 Unknown [id number] 2.16.840.1.148782.3.579.2. 59 1986 Unknown [id number] 2.16.840.1.648219.3.579.2. 593 1986 Unknown [id number] 2.840.1.672472.3.579.2. 59 1986 Unknown [id number] 2..840.1.707650.3.579.2. 1285 1986 Unknown [id number] 2.840.1.382172.3.579.2. 1285 1986 Unknown [id number] 2.840.1.648360.3.579.2. 1285 1986 Unknown [id number] 2.840.1.983970.3.579.2. 1285 1986 Unknown [id number] 2.840.1.498511.3.579.2. 1258 1986 Unknown [id number] .840.1.532167.3.579.2. 1258 1986 Unknown [id number] 2.840.1.190864.3.579.2. 1258 1986 Unknown [id number] .840.1.720019.3.579.2. 1258 1986 Unknown [id number] 2.840.1.224656.3.579.2. 1258 1986 Unknown [id number] 2.16.840.1.739946.3.579.2. 1258 1986 Unknown [id number] 2.16.840.1.065627.3.579.2. 1258 1986 Unknown [id number] 2.16840.1.511979.3.579.2. 1258 1986 Unknown [id number] 2.16.840.1.662051.3.579.2. 1259 1959 Self-pay 1959 Unknown [id number] 1959 Unknown [id number] 1959 Unknown [id number] Unknown [id number] 2.16.840.1.482644.3.579.2. 593 Social History Date Type Detail Facility Start: 10-15-2022 End: 02-05-2023 Sex Assigned At [facility] Start: 02-12-2023 Tobacco smoking status MNIS Ex-smoke r [facility] End: 08-19-2011 History [...] to any clubs or organizations such as zoroastrianism groups, unions, fraternal or athletic groups, or [...] Gender identity Identifies as female gender (finding) [facility] Clinical Notes 03-01-2021 to 03-25-2024 RAMILA Joshi [...] Current Outpatient Medications Medication Instructions Continuous Glucose Tire Care Manager (FreeStyle Adriana 2 Whitney) device 1 Device, Does not apply, 4 [...] Missed period 09/15/2022 Moderate recurrent major depression (CMS/[facility]) 09/15/2022 Other chronic pain 09/15/2022 Radicular pain 09/15/2022 Vitamin D deficiency 09/15/2022 History of miscarriage 06/22/2023 Positive urine test 06/22/2023 23 weeks gestation of 01/10/2024 32 weeks gestation of 03/10/2024 Third trimester 03/10/2024 34 weeks gestation of 03/25/2024 Resolved Ambulatory Problems Diagnosis Date Noted No Resolved Ambulatory Problems Past Medical History: Diagnosis Date ADHD (attention deficit hyperactivity disorder) ([facility]) ADHD (attention deficit hyperactivity disorder) ([facility]) Ankle pain, left Anxiety with [...] ADHD (attention deficit hyperactivity disorder) ([facility]) ADHD (attention deficit hyperactivity disorder) ([facility]) Ankle pain, left Anxiety with [...] nursing note reviewed. Exam conducted with a bottle feeder present. Vitals: Estimated body mass index is [...] Belen Oconnell LPN on behalf of: RAMILA oJshi documented in this encounter [facility] 03-10-2024 History of Presen t illness Narrative Reason for Appointment: Patient ID: Moria Starr is a 38 y.o. female who presents for Routine Visit Patient presents today for Return OB appointment. MEDICATIONS Current Outpatient Medications Medication Instructions Continuous Glucose Tire Care Manager (KybalionStyle Adriana 2 Whitney) device 1 Device, Does not apply, 4 times daily MV-Min-Fe Fum-FA-DHA ( 1 PO) Take by mouth. saccharomyces boulardii (FLORASTOR) 250 mg, 2 times daily ALLERGIES Allergies Allergen Reactions Sertraline Other Flat emotions Other Reaction(s): decreased emotional lability PROBLEMS Active Ambulatory Problems Diagnosis Date Noted Attention deficit hyperactivity disorder (ADHD) ([facility]) 09/15/2022 Cervicalgia 09/15/2022 Chronic fatigue 09/15/2022 Chronic tension-type headache, not intractable 09/15/2022 Generalized anxiety disorder ([facility]/HCC) 09/15/2022 HPV (human papilloma virus) infection 09/15/2022 Large breasts 09/15/2022 LGSIL on Pap smear of cervix 09/15/2022 Migraine with aura and without status migrainosus, not intractable ([facility]) 09/15/2022 Missed period 09/15/2022 Moderate recurrent major depression ([facility]) 09/15/2022 Other chronic pain 09/15/2022 Radicular pain 09/15/2022 Vitamin D deficiency 09/15/2022 History of miscarriage 06/22/2023 Positive urine test 06/22/2023 23 weeks gestation of 01/10/2024 32 weeks gestation of 03/10/2024 Third trimester 03/10/2024 Resolved Ambulatory Problems Diagnosis Date Noted No Resolved Ambulatory Problems Past Medical History: Diagnosis Date ADHD (attention deficit hyperactivity disorder) ([facility]) ADHD (attention deficit hyperactivity disorder) ([facility]) Ankle pain, left Anxiety with [...] ADHD (attention deficit hyperactivity disorder) ([facility]) ADHD (attention deficit hyperactivity disorder) ([facility]) Ankle pain, left Anxiety with [...] Current Outpatient Medications Medication Instructions Continuous Glucose Tire Care Manager ([employer] Adriana 2 Whitney) device 1 Device, Does not apply, 4 [...] Current Outpatient Medications Medication Instructions Continuous Glucose Tire Care Manager (FreeStyle Adriana 2 Whitney) device 1 Device, Does not apply, 4 times daily ergocalciferol (VITAMIN D2) 1.25 mg, Oral, Weekly MV-Min-Fe Fum-FA-DHA ( 1 PO) Oral saccharomyces boulardii (FLORASTOR) 250 mg, Oral, 2 times daily ALLERGIES Allergies Allergen Reactions Sertraline Other Flat emotions Other Reaction(s): decreased emotional lability PROBLEMS Active Ambulatory Problems Diagnosis Date Noted Attention deficit hyperactivity disorder (ADHD) ([facility]) 09/15/2022 Cervicalgia 09/15/2022 Chronic fatigue [...] disorder) (CMS/HCC) ADHD (attention deficit hyperactivity disorder) ([facility]) Ankle pain, left Anxiety with [...] ADHD (attention deficit hyperactivity disorder) ([facility]) ADHD (attention deficit hyperactivity disorder) ([facility]) Ankle pain, left Anxiety with [...] this encounter [facility] 01-23-2024 Telephone encount er Note Endocrinology called [...] we will have to put her with GRANTS ANALYST of her choice (since she would be a returning Angelina pt) to establish care. [facility] 01-23-2024 Miscellaneous Notes Formattin g of this [...] we will have to put her with GRANTS ANALYST of her choice (since she would be a returning Angelina pt) to establish care. documented in this encounter [facility] 01-10-2024 History of Presen t illness Narrative Reason for Appointment: Patient ID: Moira Starr is a 38 y.o. female who presents for Routine Visit Patient presents today for Return OB appointment. MEDICATIONS Current Outpatient Medications Medication Instructions Continuous Glucose Tire Care Manager (KybalionStIRIS-RFID Adriana 2 Whitney) device 1 Device, Does not apply, 4 [...] Attention deficit hyperactivity disorder (ADHD) ([facility]) 09/15/2022 Cervicalgia 09/15/2022 Chronic fatigue 09/15/2022 Chronic tension-type headache, not intractable 09/15/2022 Generalized anxiety disorder ([facility]) 09/15/2022 HPV (human papilloma virus) infection 09/15/2022 Large breasts 09/15/2022 LGSIL on Pap smear of cervix 09/15/2022 Migraine with aura and without status migrainosus, not intractable ([facility]) 09/15/2022 Missed period 09/15/2022 Moderate recurrent major depression ([facility]) 09/15/2022 Other chronic pain 09/15/2022 Radicular pain 09/15/2022 Vitamin D deficiency 09/15/2022 History of miscarriage 06/22/2023 Positive urine test 06/22/2023 Resolved Ambulatory Problems Diagnosis Date Noted No Resolved Ambulatory Problems Past Medical History: Diagnosis Date ADHD (attention deficit hyperactivity disorder) ([facility]) ADHD (attention deficit hyperactivity disorder) ([facility]) Ankle pain, left Anxiety with [...] ADHD (attention deficit hyperactivity disorder) ([facility]) ADHD (attention deficit hyperactivity disorder) ([facility]) Ankle pain, left Anxiety with [...] nursing note reviewed. Exam conducted with a bottle feeder present. Vitals: Estimated body mass index is [...] Current Outpatient Medications Medication Instructions Continuous Glucose Tire Care Manager ([employer] Adriana 2 Whitney) device 1 Device, Does not apply, 4 [...] nursing note reviewed. Exam conducted with a bottle feeder present. Vitals: Estimated body mass index is [...] Attention deficit hyperactivity disorder (ADHD) ([facility]) 09/15/2022 Cervicalgia 09/15/2022 Chronic fatigue 09/15/2022 Chronic tension-type headache, not intractable 09/15/2022 Generalized anxiety disorder ([facility]/HCC) 09/15/2022 HPV (human papilloma virus) infection 09/15/2022 Large breasts 09/15/2022 LGSIL on Pap smear of cervix 09/15/2022 Migraine with aura and without status migrainosus, not intractable (CMS/HCC) 09/15/2022 Missed period 09/15/2022 Moderate recurrent major depression (HCC) ([facility]) 09/15/2022 Other chronic pain 09/15/2022 Radicular pain 09/15/2022 Vitamin D deficiency 09/15/2022 History of miscarriage 06/22/2023 Positive urine test 06/22/2023 Resolved Ambulatory Problems Diagnosis Date Noted No Resolved Ambulatory Problems Past Medical History: Diagnosis Date ADHD (attention deficit hyperactivity disorder) ([facility]) ADHD (attention deficit hyperactivity disorder) ([facility]) Ankle pain, left Anxiety with [...] ADHD (attention deficit hyperactivity disorder) ([facility]) ADHD (attention deficit hyperactivity disorder) ([facility]) Ankle pain, left Anxiety with [...] or undercooked meat, and stay away from [facility]. Patient has been consulted regarding any [...] lacking range of motion may be a retirement condition, with or without surgical intervention. Instructed [...] M24.022) Feb, Pre-op exam (ICD-10 - Z01.818) [employer] Other Evaluation note* Diagnosis Second trimester state, [...] Reported* Type Description Date Medical History ADHD [employer] Other Summary Purpose Family History No [...] DATE CREATED AUTHOR AUTHOR'S ORGANIZ ATION 10/06/2021 [facility] DATE CREATED AUTHOR AUTHOR'S ORGANIZ ATION 06/08/[address] [facility] DATE CREATED AUTHOR AUTHOR'S ORGANIZ ATION 02/06/2024 [facility] DATE CREATED AUTHOR AUTHOR'S ORGANIZ ATION 03/31/2024 [facility] EPIC REASON FOR VISIT (unrecogniz ed section and content) Reason Comments Routine Visit Reason Comments Routine Visit STI Screening Care Teams (unrecognized sec tion and content) Instrument Tech Relationship Specialty Start Date End Date Emily Alfaro DO [address] [place] [address] PCP - General Family Medicine 09/14/22 Instrument Tech Relationship Specialty Start Date End Date Emily Alfaro DO [address] [place] [address] PCP - General Family Medicine 09/14/22 Instrument Tech Relationship Specialty Start Date End Date Emily Alfaro DO [address] [place] [address] PCP - General Family Medicine 09/14/22 Instrument Tech Relationship Specialty Start Date End Date Emliy Alfaro DO [address] [place] [address] PCP - General Family Medicine 09/14/22 Instrument Tech Relationship Specialty Start Date End Date Emily Alfaro DO [address] [place] [address] PCP - General Family Medicine 09/14/22 Instrument Tech Relationship Specialty Start Date End Date Emily Alfaro DO [address] [place] [place] [address] PCP - General Family Medicine 09/14/22 Instrument Tech Relationship Specialty Start Date End Date Emily Alfaro DO [address] [facility] [place] [address] PCP - General Family Medicine 09/14/22 Instrument Tech Relationship Specialty Start Date End Date Emily Alfaro DO [address] [facility] [place] [address] PCP - General Family Medicine 09/14/22 Instrument Tech Relationship Specialty Start Date End Date Emily Alfaro DO [address] [facility] [place] [address] PCP - General Family Medicine 09/14/22 Instrument Tech Relationship Specialty Start Date End Date Emily Alfaro DO [address] [facility] [place] [address] PCP - General Family Medicine 09/14/22 Instrument Tech Relationship Specialty Start Date End Date Emily Alfaro DO [address] [facility] [place] [address] PCP - General Family Medicine 09/14/22 Instrument Tech Relationship Specialty Start Date End Date Emily Alfaro DO [address] [facility] [place] [address] PCP - General Family Medicine 09/14/22 FOR [...] BE BASED ON THE PRIMARY CLINICAL RECORDS. [facility] [employer] [facility]. provides no warranty or guarantee of the accuracy or completeness of information in this document.
[2024-04-10 09:30] LABS: Basophils Percent Auto 0.4 % (0.2-2.0); Eosinophils Absolute Auto 0.2 10^3/uL (0.0-0.7); Eosinophils Percent Auto 2.5 % (0.9-7.0); Hematocrit 34.9 % (36.0-48.0); Immature Granulocytes Abs Auto 0.03 10^3/uL (0.00-0.03); Immature Granulocytes Pct Auto 0.4 % (0.0-0.5); Lymphocytes Absolute Auto 1.8 10^3/uL (1.2-3.8); Lymphocytes Percent Auto 21.2 % (20.5-60.0); Mean Corpuscular HGB Conc 31.5 g/dL (29.9-35.2); Mean Corpuscular Hemoglobin 26.5 pg (26.7-34.0); Mean Corpuscular Volume 84.1 fL (81.0-99.0); Monocytes Absolute Auto 0.5 10^3/uL (0.3-0.8); Monocytes Percent Auto 5.5 % (1.7-12.0); Neutrophils Absolute Auto 5.9 10^3/uL (1.4-6.5); Platelet Count 242 10^3/uL (150-450); Red Blood Count 4.15 10^6/uL (4.20-5.40); Red Cell Distribution Width 14.3 % (11.0-15.0); White Blood Count 8.4 10^3/uL (4.0-11.0)
== END 2024-04-10 08:57 | disposition home or self-care (01) ==
LOC: LAB 08:58
PROVIDERS: PCP Family Medicine; Visit Provider Obstetrics & Gynecology
DX: O99.013 Anemia complicating pregnancy, third trimester (principal); D50.8 Other iron deficiency anemias; Z3A.00 Weeks of gestation of pregnancy not specified
CPT/HCPCS: 36415; 82306; 82728; 85025

== ENCOUNTER 2024-04-24 00:19 | Outpatient (OUT) | payer OTHER, SELFPAY ==
--- OUTSIDE RECORDS SUMMARY | 2024-04-17 04:58 | XMS_ITS | CCD ---
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 Name Role Phone HUBER LUNDBERG Attending Unavailable [...] Unavailable JAMES ., DR MCCLOUD Admitting Unavailable KEWASKUM, DR CARIDAD [employer] Unavailable JAMES ., [...] Unavailable ANGELINA, EMILY G Primary Care Unavailable ZENA SRIDEVI Attending Unavailable ANGELINA, EMILY G Referring Unavailable ANGELINA, EMILY G Primary Care Unavailable ROB GONZALES Attending Unavailable ANGELINA, EMILY G Referring Unavailable ANGELINA, EMILY G Primary Care Unavailable JAMES, ROGERS Attending Unavailable IVETH HOOD [...] Drug Class(es) Dates Sig (Normalized) Sig (Original) amoxicillin 500 mg oral tablet (3 sources) Penicillin-class Antibacterial Start: 04-09-2024 End: 04-16-2024 take 1 tablet by mouth in the morning, then take 1 tablet by mouth in the evening, then take 1 tablet by mouth at bedtime amoxicillin (Amoxil) 500 MG tablet Indications: Tooth infection Take 1 tablet (500 mg) by mouth in the morning and 1 tablet (500 mg) in the evening and 1 tablet (500 mg) before bedtime. Do all this for 7 days. 21 tablet 04/09/2024 04/16/2024 Active amphetamine aspartate 2.5 mg / amphetamine sulfate 2.5 mg / dextroamphetamine saccharate 2.5 mg / dextroamphetamine sulfate 2.5 mg oral tablet (1 source) Central Nervous System Stimulant take 1 tablet by mouth every twelve hours Adderall 10 MG 1 tablet Orally Twice a day Active ergocalciferol 1.25 mg oral capsule (15 sources) Provitamin D2 Compound Start: 02-14-2023 End: 02-14-2024 take 1 capsule by mouth every week ergocalciferol (Vitamin D2) 1.25 MG (66852 UT) capsule Indications: Vitamin D deficiency Take [...] day Active MV-Min-Fe Fum-FA-DHA ( 1 PO) (20 [...] Dates Sig (Normalized) Sig (Original) Continuous Glucose Certified Cytotechnologist (FreeStyle Adriana 2 Duncan) device (20 sources) Start: 11-15-2023 End: 04-10-2024 Continuous Glucose Certified Cytotechnologist (FreeStyle Adriana 2 Duncan) device Indications: History of gestational diabetes 1 Device in the morning and 1 Device at noon and 1 Device in the evening and 1 Device before bedtime. 1 each 11/15/2023 04/10/2024 Discontinued Start: 11-15-2023 Continuous Glu cose Certified Cytotechnologist (FreeStyle Adriana 2 Duncan) device Indications: History of gestational diabetes 1 Device in the morning and 1 Device at noon and 1 Device in the evening and 1 Device before bedtime. 1 each 11/15/2023 Active Continuous Glucose Sensor (FreeStyle Adriana 2 Plus Sensor) misc (8 sources) Start: 03-25-2024 End: 04-10-2024 Continuous Glucose Sensor (FreeStyle Adriana 2 Plus Sensor) misc Indications: History of gestational diabetes 1 Units every 14 (fourteen) days 2 each 3 03/25/2024 04/10/2024 Discontinued Start: 03-25-2024 End: 04-24-2024 Continuous Glucose Sensor (F reeStyle Adriana 2 Plus Sensor) misc Indications: History of gestational diabetes 1 Units every 14 (fourteen) days 2 each 3 03/25/2024 04/24/2024 Active Start: 03-10-2024 End: 03-24-2024 Continuous Glucose Sensor (F reeStyle Adriana 2 Plus Sensor) [facility] [place] Indications: History of gestational diabetes 1 Units every 14 (fourteen) days 2 each 3 03/10/2024 03/24/2024 Discontinued (Reorder) Start: 03-10-2024 End: 04-09-2024 Continuous Glucose Sensor (F reeStyle Adriana 2 Plus Sensor) [facility] [place] Indications: History of gestational diabetes 1 Units [...] days 2 Device 8 12/13/2023 01/12/2024 Active polysaccharide iron complex 391 mg oral capsule (8 sources) Start: 03-10-2024 End: 04-09-2024 take 1 capsule by mouth once daily iron polysaccharides (ProFe) 391.3 (180 Fe) MG capsule Indications: Anemia, unspecified type Take 1 capsule (391.3 mg) by mouth Daily 30 capsule 6 03/10/2024 04/09/2024 Problems Active Problems Problem Classification Problem Date Documented Date Episodic/Chronic Anxiety disorders (20 sources) Generalized anxiety disorder; Translations: [Generalized anxiety disorder] Onset: 06-29-2020 09-15-2022 Chronic Attention-deficit, conduct, and disruptive behavior disorders (20 sources) Attention deficit hyperactivity disorder; Translations: [Attention-deficit hyperactivity disorder, unspecified type] Onset: 09-15-2022 09-15-2022 Chronic Deficiency and other anemia (2 sources) Anemia; Translations: [Anemia, unspecified] 03-10-2024 Episodic Deficiency and other anemia (2 sources) Iron deficiency anemia; Translations: [Other iron deficiency anemias] 04-09-2024 Episodic Diabetes mellitus without complication (2 sources) Increased glucose level; Translations: [Other abnormal glucose] 12-13-2023 Episodic Diabetes or abnormal glucose tolerance complicating ; childbirth; or the puerperium (4 sources) History of gestational diabetes mellitus; Translations: [Personal history of gestational diabetes] 11-15-2023 Episodic Disorders of teeth and jaw (2 sources) Infection of tooth; Translations: [Periapical abscess without sinus] 04-09-2024 Episodic Disorders usually diagnosed in infancy, childhood, [...] deficiency, unspecified] Onset: 09-15-2022 09-15-2022 Chronic Other complications of (2 sources) size does not accord with dates; Translations: [Uterine size-date discrepancy, unspecified trimester] 04-09-2024 Episodic Other female genital disorders (1 source) Other [...] cervix] Onset: 10-05-2021 Episodic Residual codes; unclassified (2 sources) Gestation period, 24 weeks; Translations: [24 weeks gestation of ] 02-07-2024 Episodic Residual codes; unclassified (2 sources) Gestation period, 29 weeks; Translations: [29 weeks gestation of ] 02-20-2024 Episodic Residual codes; unclassified (2 sources) Gestation period, 19 weeks; Translations: [19 weeks gestation of ] 12-13-2023 Episodic Residual codes; unclassified (12 sources) Gestation period, 32 weeks; Translations: [32 weeks gestation of ] Onset: 03-10-2024 03-10-2024 Episodic Residual codes; unclassified (8 sources) Gestation period, 34 weeks; Translations: [34 weeks gestation of ] Onset: 03-25-2024 03-25-2024 Episodic Residual codes; unclassified (2 sources) Gestation period, 36 weeks; Translations: [36 weeks gestation of ] 04-09-2024 Episodic Unclassified (2 sources) LOW BACK PAIN, [...] 02-02-2022 Episodic Residual codes; unclassified (20 sources) Gestation period, 23 weeks; Translations: [23 weeks gestation of ] Onset: 01-10-2024 01-10-2024 Episodic Residual codes; unclassified (20 sources) H/O: [...] Test Name Value Interpretation Reference Range Facility ALL MISCELLANEOUS TESTon MISCELLANEOUS TEST COMMENT . [facility] Comment on above: Test Ordered: [id number] Strep Gp B Culture+Rflx Strep Gp B Culture+Rflx Negative CB Reference Range: Negative Centers for Disease Control and Prevention (CDC) and [place] Congress of Obstetricians and Gynecologists (ACOG) guidelines for prevention of group B streptococcal (GBS) disease specify co-collection of a vaginal and rectal swab specimen to maximize sensitivity of GBS detection. Per the CDC and ACOG, swabbing both the lower vagina and rectum substantially increases the yield of detection compared with sampling the vagina alone. Penicillin G, ampicillin, or cefazolin are indicated for intrapartum prophylaxis of GBS colonization. Reflex susceptibility testing should be performed prior to use of clindamycin only on GBS isolates from penicillin- allergic women who are considered a high risk for anaphylaxis. Treatment with vancomycin without additional testing is warranted if resistance to clindamycin is noted. Performed at: - [facility] [id number] Costumed Character Entertainer: Carlos Manuel Bray PhD, Phone: [phone] GROUP BE STREP [id number] Group B Streptococcus Colonization Detection Culture With Re TIERNEYISYNC [facility] Urinalysis macro (dipstick) panel (U)on 03-25-2024 Bilirubin, UA Negative Negative - 4(70) +++ mg/dL [facility] Blood, UA Negative Negative - 50 Andrew/mcL [facility] Clarity, UA Clear [facility] Color, UA Yellow [facility] Glucose, UA Negative Negative - 2000(110) ++++ mg/dL [facility] Interpretation and review of laboratory results Abnormal [facility] Ketones, UA Positive Negative - 160(16) ++++ mg/dL [facility] Comment on above: trace Leukocytes, UA Trace Negative - 500+++ Lore/mcL [facility] Nitrite, UA Negative Negative - Positive [facility] pH, UA 6.5 5 - 9 [facility] Protein, UA Positive Negative - 2000(20) ++++ mg/dL [facility] Comment on above: 30mg Spec Grav, UA 1.025 1 - 1.03 [facility] Urobilinogen, UA 1.0 0.2 - 12 mg/dL [facility] Urinalysis macro (dipstick) panel (U)on 03-10-2024 Bilirubin, UA Positive Negative - 4(70) +++ mg/dL [facility] Comment on above: small Blood, UA Negative Negative - 50 Andrew/mcL [facility] Clarity, UA Clear [facility] Color, UA Yellow [facility] Glucose, UA Negative Negative - 1999(110) ++++ mg/dL [facility] Interpretation and review of laboratory results Abnormal [facility] Ketones, UA Positive Negative - 160(16) ++++ mg/dL [facility] Comment on above: trace Leukocytes, UA Negative Negative - 500+++ Lore/mcL [facility] Nitrite, UA Negative Negative - Positive [facility] pH, UA 6 5 - 9 [facility] Protein, UA Positive Negative - 1999(20) ++++ mg/dL [facility] Comment on above: 30 Spec Grav, UA 1.025 1 - 1.03 [facility] Urobilinogen, UA 1.0 0.2 - 12 mg/dL [facility] MLR HEMOGLOBIN A1Con 024 Glucose [Mass/Vol] 114 mg/dL [facility] HbA1c (Bld) [Mass fraction] 5.6 % 4.5 - 6.2 % [facility] Comment on above: ADA RECOMMENDED LIMI T 4.0 - 6.0 ADA THERAPEUTIC TARGET < 7.0 ACTION SUGGESTED > 7.0 [facility] Urinalysis macro (dipstick) panel (U)on 02-20-2024 Bilirubin, UA Positive Negative - 4(70) +++ mg/dL [facility] Comment on above: small Blood, UA Negative Negative - 50 Andrew/mcL [facility] Clarity, UA Clear [facility] Color, UA Yellow [facility] Glucose, UA Negative Negative - 1999(110) ++++ mg/dL [facility] Interpretation and review of laboratory results Abnormal [facility] Ketones, UA Positive Negative - 160(16) ++++ mg/dL [facility] Comment on above: trace Leukocytes, UA Negative Negative - 500+++ Lore/mcL [facility] Nitrite, UA Negative Negative - Positive [facility] pH, UA 6 5 - 9 [facility] Protein, UA Trace Negative - 1999(20) ++++ mg/dL [facility] Spec Grav, UA 1.03 1 - 1.03 [facility] Urobilinogen, UA 1.0 0.2 - 12 mg/dL [facility] Urinalysis macro (dipstick) panel (U)on 01-10-2024 Bilirubin, UA Negative Negative - 4(70) +++ mg/dL [facility] Blood, UA Negative Negative - 50 Andrew/mcL [facility] Clarity, UA Clear [facility] Color, UA Yellow [facility] Glucose, UA Negative Negative - 1999(110) ++++ mg/dL [facility] Interpretation and review of laboratory results Normal [facility] Ketones, UA Negative Negative - 160(16) ++++ mg/dL [facility] Leukocytes, UA Negative Negative - 500+++ Lore/mcL [facility] Nitrite, UA Negative Negative - Positive [facility] pH, UA 5.5 5 - 9 [facility] Protein, UA Negative Negative - 1999(20) ++++ mg/dL [facility] Spec Grav, UA 1.02 1 - 1.03 [facility] Urobilinogen, UA 1.0 0.2 - 12 mg/dL [facility] URETHRITIS/DISCHARGE PLUS VA GINITIS (HTRX)on 12-14-2023 ATOPOBIUM VAGINAE 0.000 [facility] ATOPOBIUM VAGINAE Not detected [facility] BVAB 2,3 (BACTERIAL VAGINOSIS ASSOCIATED BACTERIA 2, 3); MOBILUNCUS SPP 26.743 Abnormal [facility] BVAB 2,3 (BACTERIAL VAGINOSIS ASSOCIATED BACTERIA 2, 3); MOBILUNCUS SPP Detected Abnormal [facility] TATYANA ALBICANS, PARAPSILOSIS, TROPICALIS 0.000 [facility] TATYANA ALBICANS, PARAPSILOSIS, TROPICALIS Not detected [facility] TATYANA GLABRATA 0.000 [facility] TATYANA GLABRATA Not detected [facility] TATYANA KRUSEI 0.000 [facility] TATYANA KRUSEI Not detected [facility] CHLAMYDIA TRACHOMATIS 0.000 [facility] CHLAMYDIA TRACHOMATIS Not detected [facility] GARDNERELLA VAGINALIS 0.000 [facility] GARDNERELLA VAGINALIS Not detected [facility] Interpretation and review of laboratory results Abnormal [facility] MEGASPHAERA (TYPES 1, 2) 0.000 [facility] MEGASPHAERA (TYPES 1, 2) Not detected [facility] MYCOPLASMA GENITALIUM 0.000 [facility] MYCOPLASMA GENITALIUM Not detected [facility] NEISSERIA GONORRHOEAE 0.000 [facility] NEISSERIA GONORRHOEAE Not detected [facility] TRICHOMONAS VAGINALIS 0.000 [facility] TRICHOMONAS VAGINALIS Not detected [facility] Urinalysis macro (dipstick) panel (U)on 12-13-2023 Bilirubin, UA Negative Negative - 4(70) +++ mg/dL [facility] Blood, UA Negative Negative - 50 Andrew/mcL [facility] Clarity, UA Clear [facility] Color, UA Yellow [facility] Glucose, UA Negative Negative - 1999(110) ++++ mg/dL [facility] Interpretation and review of laboratory results Abnormal [facility] Ketones, UA Positive Negative - 160(16) ++++ mg/dL [facility] Comment on above: trace Leukocytes, UA Negative Negative - 500+++ Lore/mcL [facility] Nitrite, UA Negative Negative - Positive [facility] pH, UA 6.5 5 - 9 [facility] Protein, UA Negative Negative - 1999(20) ++++ mg/dL [facility] Spec Grav, UA 1.025 1 - 1.03 [facility] Urobilinogen, UA 1.0 0.2 - 12 mg/dL [facility] Urinalysis macro (dipstick) panel (U)on 11-15-2023 Bilirubin, UA Negative Negative - 4(70) +++ mg/dL [facility] Blood, UA Negative Negative - 50 Andrew/mcL [facility] Clarity, UA Clear [facility] Color, UA Yellow [facility] Glucose, UA Negative Negative - 1999(110) ++++ mg/dL [facility] Interpretation and review of laboratory results Normal [facility] Ketones, UA Negative Negative - 160(16) ++++ mg/dL [facility] Leukocytes, UA Negative Negative - 500+++ Lore/mcL [facility] Nitrite, UA Negative Negative - Positive [facility] pH, UA 5.5 5 - 9 [facility] Protein, UA Negative Negative - 1999(20) ++++ mg/dL [facility] Spec Grav, UA 1.020 1 - 1.03 [facility] Urobilinogen, UA 1.0 0.2 - 12 mg/dL [facility] ALL CBC WITH AUTO DIFFon BASOPHILS ABSOLUTE AUTO 0.0 [facility] Basophils/100 WBC (Bld) 0.4 % 0.2 - 2.0 % [facility] Eosinophils/100 WBC (Bld) 3.0 % 0.9 - 7.0 % [facility] Erythrocyte distribution width (RBC) [Ratio] 16.1 % High 11.0 - 15.0 % [facility] Hematocrit (Bld) [Volume fraction] 36.3 % 36.0 - 48.0 % [facility] Hemoglobin (Bld) [Mass/Vol] 11.4 g/dL Low 12.0 - 16.0 g/dL [facility] IMMATURE GRANULOCYTES ABS AUTO 0.03 [facility] Immature granulocytes/100 WBC (Bld) 0.3 % 0.0 - 0.5 % [facility] Interpretation and review of laboratory results Abnormal [facility] LYMPHOCYTES ABSOLUTE AUTO 2.2 [facility] Lymphocytes/100 WBC (Bld) 23.6 % 20.5 - 60.0 % [facility] MCH (RBC) [Entitic mass] 26.0 pg Low 26.7 - 34.0 pg [facility] MCHC (RBC) [Mass/Vol] 31.4 g/dL 29.9 - 35.2 g/dL [facility] MCV (RBC) [Entitic vol] 82.9 fL 81.0 - 99.0 fL [facility] MONOCYTES ABSOLUTE AUTO 0.5 [facility] Monocytes/100 WBC (Bld) 5.1 % 1.7 - 12.0 % [facility] NEUTROPHILS ABSOLUTE AUTO 6.2 [facility] Neutrophils/100 WBC (Bld) 67.6 % 43.0 - 75.0 % [facility] Platelet mean volume (Bld) [Entitic vol] 11.0 fL 9.5 - 13.5 fL [facility] EO # 0.3 [facility] TBH PLT 271 [facility] RBC 4.38 [facility] WBC 9.2 [facility] Cytology Cervical or vaginal smear or scraping studyon 03-08-2023 [facility] CHLAMYDIA/GONOCOCCUS JESE ( AB/URINE/PAPon 06-01-2022 Chlamydia trachomatis, JESE Negative Normal Negative [facility] Comment on above: Performed By: #### P TT, PT #### [facility] [address] [address] [address] Todd Moreno Neisseria gonorrhoeae, JESE Negative Normal Negative [facility] Comment on above: Performed By: #### P TT, PT #### [facility] [address] [place] [address] Dr. Todd Moreno VAGINITIS/VAGINOSIS DNA PROB Shaheed 06-01-2022 Tatyana species Negative Normal Negative [facility] Comment on above: Performed By: #### P TT, PT #### [facility] [address] [place] [address] Dr. Todd Moreno Gardnerella vaginalis Negative Normal Negative [facility] Comment on above: Performed By: #### P TT, PT #### [facility] [address] [place] [address] Dr. Todd Moreno Trichomonas vaginalis Negative Normal Negative [facility] Comment on above: Performed By: #### P TT, PT #### [facility] [address] [place] [address] Dr. Todd Moreno HEP B SURFACE ANTIGEN SCREEN on 03-22-2022 HBsAg Screen Negative Normal Negative [facility] Comment on above: Performed By: #### H BSANS #### [facility] [address] [place] [address] Dr. Todd Moreno HEPATITIS C VIRUS AB W/ REFL EX QUANTon 03-22-2022 HCV AB 0.1 s/co ratio Normal 0.0-0.9 [facility] Comment on above: Performed By: #### P TT, PT #### [facility] [address] [place] [address] Dr. Todd Moreno Interpretation: Comment Normal [facility] Comment on above: Result Comment: Nega tive Not infected with HCV, unless recent infection is suspected or other evidence exists to indicate HCV infection. Performed By: #### P TT, PT #### [facility] [address] [place] [address] Dr. Todd Moreno HIV 1 AND 2 WITH REFLEXon HIV Screen 4th Generation wRfx Non-Reactive Normal Non Reactive [facility] Comment on above: Result Comment: HIV Negative HIV-1/HIV-2 antibodies and HIV-1 p24 antigen were NOT detected. There is no laboratory evidence of HIV infection. Performed By: #### H IV12 #### [facility] [address] [place] [address] Dr. Todd Moreno RPR QUANTon 03-22-2022 Rapid Plasma Reagin, Quant Non-Reactive Normal NonRea<1:1 [facility] Comment [...] utilized, such as Treponema pallidum (Syphilis) Screening [place] (682778) or Rapid Plasma Reagin (RPR) Test With Reflex to Quantitative RPR and Confirmatory Treponema pallidum Antibodies ([id number]). Performed By: #### R PRQ #### [facility] [address] [place] [address] Dr. Todd Moreno RUBELLA AB IGGon 03-22-2022 Rubella Antibodies, IgG 5.11 index Normal Immune >0.99 [facility] Comment on above: Result Comment: Non- immune <0.90 Equivocal 0.90 - 0.99 Immune >0.99 Performed By: #### R PRQ #### [facility] [address] [place] [address] Dr. Todd Moreno CBC AUTO DIFFon 03-20-2022 BASO # 0.0 103/ul Normal 0.0-0.1 [facility] Comment on above: Performed By: #### P TT, PT #### [facility] [address] [place] [address] Dr. Todd Moreno Basophils/100 WBC (Bld) 0.3 % Normal 0.2-2.0 [facility] Comment on above: Performed By: #### P TT, PT #### [facility] [address] [place] [address] Dr. Todd Moreno EO # 0.1 103/ul Normal 0.0-0.7 [facility] Comment on above: Performed By: #### P TT, PT #### [facility] [address] [place] [address] Dr. Todd Moreno Eosinophils/100 WBC (Bld) 1.0 % Normal 0.9-7.0 [facility] Comment on above: Performed By: #### P TT, PT #### [facility] [address] [place] [address] Dr. Todd Moreno Erythrocyte distribution width (RBC) [Ratio] 14.4 % Normal 11.0-15.0 [facility] Comment on above: Performed By: #### P TT, PT #### [facility] [address] [place] [address] Dr. Todd Moreno Hematocrit (Bld) [Volume fraction] 38.2 % Normal 36.0-48.0 [facility] Comment on above: Performed By: #### P TT, PT #### [facility] [address] [place] [address] Dr. Todd Moreno Hemoglobin (Bld) [Mass/Vol] 12.2 g/dL Normal 12.0-16.0 [facility] Comment on above: Performed By: #### P TT, PT #### [facility] [address] [place] [address] Dr. Todd Moreno IG # 0.03 10e3/ul Normal 0.00-0.03 [facility] Comment on above: Performed By: #### P TT, PT #### [facility] [address] [place] [address] Dr. Todd Moreno IG % 0.3 % Normal 0.0-0.5 [facility] Comment on above: Performed By: #### P TT, PT #### [facility] [address] [place] [address] Dr. Todd Moreno LYMPH # 1.9 103/ul Normal 1.2-3.8 [facility] Comment on above: Performed By: #### P TT, PT #### [facility] [address] [place] [address] Dr. Todd Moreno Lymphocytes/100 WBC (Bld) 19.0 % Critically low 20.5-60.0 [facility] Comment on above: Performed By: #### P TT, PT #### [facility] [address] [place] [address] Dr. Todd Moreno MANUAL DIFF REQ NO Normal [facility] Comment on above: Performed By: #### P TT, PT #### [facility] [address] [place] [address] Dr. Todd Moreno MCH (RBC) [Entitic mass] 26.1 pg Critically low 26.7-34.0 [facility] Comment on above: Performed By: #### P TT, PT #### [facility] [address] [place] [address] Dr. Todd Moreno MCHC (RBC) [Mass/Vol] 31.9 g/dL Normal 29.9-35.2 [facility] Comment on above: Performed By: #### P TT, PT #### [facility] [address] [place] [address] Dr. Todd Moreno MCV (RBC) [Entitic vol] 81.6 fL Normal 81.0-99.0 [facility] Comment on above: Performed By: #### P TT, PT #### [facility] [address] [place] [address] Dr. Todd Moreno MONO # 0.4 103/ul Normal 0.3-0.8 [facility] Comment on above: Performed By: #### P TT, PT #### [facility] [address] [place] [address] Dr. Todd Moreno Monocytes/100 WBC (Bld) 4.4 % Normal 1.7-12.0 [facility] Comment on above: Performed By: #### P TT, PT #### [facility] [address] [place] [address] Dr. Todd Moreno NEUT # 7.5 103/ul Critically high 1.4-6.5 [facility] Comment on above: Performed By: #### P TT, PT #### [facility] [address] [place] [address] Dr. Todd Moreno Neutrophils/100 WBC (Bld) 75.0 % Normal 43.0-75.0 [facility] Comment on above: Performed By: #### P TT, PT #### [facility] [address] [place] [address] Dr. Todd Moreno Platelet mean volume (Bld) [Entitic vol] 10.4 fL Normal 9.5-13.5 [facility] Comment on above: Performed By: #### P TT, PT #### [facility] [address] [place] [address] Dr. Todd Moreno PLT 302 103/ul Normal 150-450 [facility] Comment on above: Performed By: #### P TT, PT #### [facility] [address] [place] [address] Dr. Todd Moreno RBC 4.68 106/ul Normal 4.20-5.40 [facility] Comment on above: Performed By: #### P TT, PT #### [facility] [address] [place] [address] Dr. Todd Moreno WBC 10.1 103/ul Normal 4.0-11.0 [facility] Comment on above: Performed By: #### P TT, PT #### [facility] [address] [place] [address] Dr. Todd Moreno CULTURE URINEon 03-20-2022 CULTURE URINE Culture Observations : MODERATE GROWTH OF MIXED GENITAL LORA. NO POTENTIAL PATHOGENS SEEN. Normal [facility] Comment on above: Performed By: #### P TT, PT #### [facility] [address] [place] [address] Dr. Todd Moreno GLYCOHEMOGLOBIN A1Con 2022 ADA RECOMMENDATION SEE BELOW Normal [facility] Comment on above: Result Comment: ADA RECOMMENDED LIMIT 4.0 - 6.0 ADA THERAPEUTIC TARGET < 7.0 ACTION SUGGESTED > 7.0 Performed By: #### A 1C #### [facility] [address] [place] [address] Dr. Todd Moreno Glucose [Mass/Vol] 105 mg/dL Normal [facility] Comment on above: Performed By: #### A 1C #### [facility] [address] [place] [address] Dr. Todd Moreno HbA1c (Bld) [Mass fraction] 5.3 % Normal 4.5-6.2 [facility] Comment on above: Performed By: #### A 1C #### [facility] [address] [place] [address] Dr. Todd Moreno BENJAMIN BOX TEST PT SEND OUTo n 03-20-2022 SENT TO REF LAB 03/20/2022 Normal [facility] Comment on above: Performed By: #### P TT, PT #### [facility] [address] [place] [address] Dr. Todd Moreno TYPE AND SCREENon 03-20-2022 TYPE AND SCREEN Negative Normal [facility] Comment on above: Performed By: #### P TT, PT #### [facility] [address] [place] [address] Dr. Todd Moreno US PREG TVon 02-24-2022 [...] CARIDAD DOBSON Date: 2022-02-24 16:16 Normal [facility] CULTURE URINEon 02-03-2022 CULTURE URINE [...] F Oxacillin 0.5 S F Normal [facility] Comment on above: Performed By: #### P TT, PT #### [facility] [address] [address] [address] Tdod Moreno US PREG TVon 02-01-2022 US PREG [...] ETHAN MERCER Date: 2022-01-31 22:05 Normal [facility] CBC AUTO DIFFon 01-31-2022 BASO # 0.1 103/ul Normal 0.0-0.1 [facility] Comment on above: Performed By: #### P TT, PT #### [facility] [address] [address] [address] Todd Moreno Basophils/100 WBC (Bld) 0.8 % Normal 0.2-2.0 [facility] Comment on above: Performed By: #### P TT, PT #### [facility] [address] [place] [address] Dr. Todd Moreno EO # 0.5 103/ul Normal 0.0-0.7 [facility] Comment on above: Performed By: #### P TT, PT #### [facility] [address] [place] [address] Dr. Todd Moreno Eosinophils/100 WBC (Bld) 5.4 % Normal 0.9-7.0 [facility] Comment on above: Performed By: #### P TT, PT #### [facility] [address] [place] [address] Dr. Todd Moreno Erythrocyte distribution width (RBC) [Ratio] 15.0 % Normal 11.0-15.0 [facility] Comment on above: Performed By: #### P TT, PT #### [facility] [address] [place] [address] Dr. Todd Moreno Hematocrit (Bld) [Volume fraction] 34.3 % Critically low 36.0-48.0 [facility] Comment on above: Performed By: #### P TT, PT #### [facility] [address] [place] [address] Dr. Todd Moreno Hemoglobin (Bld) [Mass/Vol] 11.2 g/dL Critically low 12.0-16.0 [facility] Comment on above: Performed By: #### P TT, PT #### [facility] [address] [place] [address] Dr. Todd Moreno IG # 0.02 10e3/ul Normal 0.00-0.03 [facility] Comment on above: Performed By: #### P TT, PT #### [facility] [address] [address] [address] Todd Moreno IG % 0.2 % Normal 0.0-0.5 [facility] Comment on above: Performed By: #### P TT, PT #### [facility] [address] [address] [address] Todd Moreno LYMPH # 2.7 103/ul Normal 1.2-3.8 [facility] Comment on above: Performed By: #### P TT, PT #### [facility] [address] [address] [address] Todd Moreno Lymphocytes/100 WBC (Bld) 29.9 % Normal 20.5-60.0 [facility] Comment on above: Performed By: #### P TT, PT #### [facility] [address] [address] [address] Todd Moreno MANUAL DIFF REQ NO Normal [facility] Comment on above: Performed By: #### P TT, PT #### [facility] [address] [place] [address] Dr. Todd Moreno MCH (RBC) [Entitic mass] 26.7 pg Normal 26.7-34.0 [facility] Comment on above: Performed By: #### P TT, PT #### [facility] [address] [place] [address] Dr. Todd Moreno MCHC (RBC) [Mass/Vol] 32.7 g/dL Normal 29.9-35.2 [facility] Comment on above: Performed By: #### P TT, PT #### [facility] [address] [place] [address] Dr. Todd Moreno MCV (RBC) [Entitic vol] 81.7 fL Normal 81.0-99.0 [facility] Comment on above: Performed By: #### P TT, PT #### [facility] [address] [place] [address] Dr. Todd Moreno MONO # 0.5 103/ul Normal 0.3-0.8 [facility] Comment on above: Performed By: #### P TT, PT #### [facility] [address] [address] [address] Todd Moreno Monocytes/100 WBC (Bld) 5.7 % Normal 1.7-12.0 [facility] Comment on above: Performed By: #### P TT, PT #### [facility] [address] [place] [address] Dr. Todd Moreno NEUT # 5.2 103/ul Normal 1.4-6.5 [facility] Comment on above: Performed By: #### P TT, PT #### [facility] [address] [place] [address] Dr. Todd Moreno Neutrophils/100 WBC (Bld) 58.0 % Normal 43.0-75.0 [facility] Comment on above: Performed By: #### P TT, PT #### [facility] [address] [place] [address] Dr. Todd Moreno Platelet mean volume (Bld) [Entitic vol] 10.4 fL Normal 9.5-13.5 [facility] Comment on above: Performed By: #### P TT, PT #### [facility] [address] [place] [address] Dr. Todd Moreno PLT 270 103/ul Normal 150-450 [facility] Comment on above: Performed By: #### P TT, PT #### [facility] [address] [place] [address] Dr. Todd Moreno RBC 4.20 106/ul Normal 4.20-5.40 [facility] Comment on above: Performed By: #### P TT, PT #### [facility] [address] [place] [address] Dr. Todd Moreno WBC 9.1 103/ul Normal 4.0-11.0 [facility] Comment on above: Performed By: #### P TT, PT #### [facility] [address] [place] [address] Dr. Todd Moreno ER URINE PROFILEon 2 Bilirubin Ql (U) Negative Normal NEGATIVE [facility] Comment on above: Performed By: #### P TT, PT #### [facility] [address] [place] [address] Dr. Todd Moreno Clarity (U) CLEAR Normal CLEAR [facility] Comment on above: Performed By: #### P TT, PT #### [facility] [address] [place] [address] Dr. Todd Moreno Color (U) YELLOW Normal YELLOW [facility] Comment on above: Performed By: #### P TT, PT #### [facility] [address] [place] [address] Dr. Todd SALINAS A micrscopic examination will be performed if indicated. Normal [facility] Comment on above: Performed By: #### P TT, PT #### [facility] [address] [place] [address] Dr. Todd Moreno Glucose Ql (U) Negative Normal NEGATIVE [facility] Comment on above: Performed By: #### P TT, PT #### [facility] [address] [place] [address] Dr. Todd Moreno Hemoglobin Ql (U) TRACE-INTACT Abnormal NEGATIVE [facility] Comment on above: Performed By: #### P TT, PT #### [facility] [address] [place] [address] Dr. Todd Moreno Ketones Ql (U) Negative Normal NEGATIVE [facility] Comment on above: Performed By: #### P TT, PT #### [facility] [address] [place] [address] Dr. Todd Moreno LEUKOCYTES SMALL Abnormal NEGATIVE [facility] Comment on above: Performed By: #### P TT, PT #### [facility] [address] [place] [address] Dr. Todd Moreno Nitrite Ql (U) Negative Normal NEGATIVE [facility] Comment on above: Performed By: #### P TT, PT #### [facility] [address] [place] [address] Dr. Todd Moreno pH (U) 6.5 [pH] Normal 5-9 [facility] Comment on above: Performed By: #### P TT, PT #### [facility] [address] [place] [address] Dr. Todd Moreno SPEC GRAVITY 1.015 Normal 1.005-<=1.025 [facility] Comment on above: Performed By: #### P TT, PT #### [facility] [address] [place] [address] Dr. Todd Moreno UA PROTEIN Negative Normal NEGATIVE/ TRACE [facility] Comment on above: Performed By: #### P TT, PT #### [facility] [address] [place] [address] Dr. Todd Moreno UR MICRO IND INDICATED Normal [facility] Comment on above: Performed By: #### P TT, PT #### [facility] [address] [place] [address] Dr. Todd Moreno Urobilinogen Qn (U) 0.2 {Tiffany'U}/dL Normal 0.2 - 1. 0 [facility] Comment on above: Performed By: #### P TT, PT #### [facility] [address] [place] [address] Dr. Todd Moreno LIPASEon 01-31-2022 Lipase [Catalytic activity/Vol] 123.0 U/L Normal 73.0-393.0 [facility] Comment on above: Performed By: #### C MP, LIPA #### [facility] [address] [place] [address] Dr. Todd Moreno PREG QUANT HCGon 01-31-2022 HCG QUANT 711 mIU/mL Normal [facility] Comment on above: Performed By: #### P TT, PT #### [facility] [address] [place] [address] Dr. Todd Moreno HCG RANGE SEE BELOW Normal [facility] Comment on above: Result Comment: 5-50 0.2-1 WEEK 50-500 1-2 WEEKS 100-5,000 2-3 WEEKS 500-10,000 3-4 WEEKS 1,000-50,000 4-5 WEEKS 10,000-100,000 5-6 WEEKS 15,000-200,000 6-8 WEEKS 10,000-100,000 2-3 MONTHS Performed By: #### P TT, PT #### [facility] [address] [place] [address] Dr. Todd Moreno PROF 14(COMP METB)on Albumin [Mass/Vol] 3.7 g/dL Normal 3.4-5.0 [facility] Comment on above: Performed By: #### C MP, LIPA #### [facility] [address] [address] [address] Todd Moreno Albumin/Globulin [Mass ratio] 1.0 {ratio} Normal [facility] Comment on above: Performed By: #### C MP, LIPA #### [facility] [address] [address] [address] Todd Moreno ALP [Catalytic activity/Vol] 80 U/L Normal 46-116 [facility] Comment on above: Performed By: #### C MP, LIPA #### [facility] [address] [address] [address] Todd Moreno ALT [Catalytic activity/Vol] 23 U/L Normal 14-59 [facility] Comment on above: Performed By: #### C MP, LIPA #### [facility] [address] [address] [address] Todd Moreno Anion gap [Moles/Vol] 10.2 mmol/L Normal [facility] Comment on above: Performed By: #### C MP, LIPA #### [facility] [address] [address] [address] Todd Moreno AST [Catalytic activity/Vol] 14 U/L Critically low 15-37 [facility] Comment on above: Performed By: #### C MP, LIPA #### [facility] [address] [address] [address] Todd Moreno Bilirubin [Mass/Vol] 0.3 mg/dL Normal 0.2-1.0 [facility] Comment on above: Performed By: #### C MP, LIPA #### [facility] [address] [address] [address] Todd Moreno Calcium [Mass/Vol] 9.1 mg/dL Normal 8.5-10.1 [facility] Comment on above: Performed By: #### C MP, LIPA #### [facility] [address] [address] [address] Todd Moreno Chloride [Moles/Vol] 104 mmol/L Normal 98-107 [facility] Comment on above: Performed By: #### C MP, LIPA #### [facility] [address] [address] [address] Todd Moreno CO2 [Moles/Vol] 26.8 mmol/L Normal 21.0-32.0 [facility] Comment on above: Performed By: #### C MP, LIPA #### [facility] [address] [address] [address] Todd Moreno Creatinine [Mass/Vol] 0.87 mg/dL Normal 0.55-1.02 [facility] Comment on above: Performed By: #### C MP, LIPA #### [facility] [address] [address] [address] Todd Moreno EGFR-AF GAMBIAN >60 Normal >=60 [facility] Comment on above: Performed By: #### C MP, LIPA #### [facility] [address] [address] [address] Todd Moreno EGFR-NON AF GAMBIAN >60 Normal >=60 [facility] Comment on above: Performed By: #### C MP, LIPA #### [facility] [address] [address] [address] Todd Moreno Globulin (S) [Mass/Vol] 3.7 g/dL Normal [facility] Comment on above: Performed By: #### C MP, LIPA #### [facility] [address] [address] [address] Todd Moreno Glucose [Mass/Vol] 98 mg/dL Normal 74-106 [facility] Comment on above: Performed By: #### C MP, LIPA #### [facility] [address] [address] [address] Todd Moreno Potassium [Moles/Vol] 4.0 mmol/L Normal 3.5-5.1 [facility] Comment on above: Performed By: #### C MP, LIPA #### [facility] [address] [address] [address] Todd Moreno Protein [Mass/Vol] 7.4 g/dL Normal 6.4-8.2 [facility] Comment on above: Performed By: #### C MP, LIPA #### [facility] [address] [address] [address] Todd Moreno Sodium [Moles/Vol] 137 mmol/L Normal 136-145 [facility] Comment on above: Performed By: #### C MP, LIPA #### [facility] [address] [address] [address] Todd Moreno Urea nitrogen [Mass/Vol] 15.0 mg/dL Normal 7.0-18.0 [facility] Comment on above: Performed By: #### C MP, LIPA #### [facility] [address] [place] [address] Dr. Todd Moreno Urea nitrogen/Creatinine [Mass ratio] 17.2 mg/mg Normal [facility] Comment on above: Performed By: #### C MP, LIPA #### [facility] [address] [place] [address] Dr. Todd Moreno URINE MICROSCOPIC ONLYon BACTERIA SMALL Abnormal NONE SEEN [facility] Comment on above: Performed By: #### P TT, PT #### [facility] [address] [place] [address] Dr. Todd Moreno Bacteria identified Cx Nom (U) INDICATED Normal [facility] Comment on above: Performed By: #### P TT, PT #### [facility] [address] [place] [address] Dr. Todd Moreno CAST NONE SEEN Normal NONE SEEN [facility] Comment on above: Performed By: #### P TT, PT #### [facility] [address] [place] [address] Dr. Todd Moreno Crystals LM Nom (Urine sed) NONE SEEN Normal NONE SEEN [facility] Comment on above: Performed By: #### P TT, PT #### [facility] [address] [place] [address] Dr. Todd Moreno Epithelial cells LM Ql (Urine sed) FEW Abnormal NONE SEEN /RARE [facility] Comment on above: Performed By: #### P TT, PT #### [facility] [address] [address] [address] Todd Moreno MUCOUS NONE SEEN Normal NONE SEEN [facility] Comment on above: Performed By: #### P TT, PT #### [facility] [address] [place] [address] Dr. Todd Moreno RBC 0-2 Normal 0-2 [facility] Comment on above: Performed By: #### P TT, PT #### [facility] [address] [place] [address] Dr. Todd Moreno WBC 10-20 Abnormal NONE SEEN [facility] Comment on above: Performed By: #### P TT, PT #### [facility] [address] [place] [address] Dr. Todd Moreno ESTROGENon 10-20-2021 Estrogens, Total 68 pg/mL Normal [facility] [place] Comment on above: Result Comment: Prep ubertal < 40 Female Cycle: 1-10 Days 16 - 328 11-20 Days 34 - 501 21-30 Days 48 - 350 Post-Menopausal 40 - 244 Performed By: #### P TT, PT #### [facility] [address] [place] [address] Dr. Todd Moreno ESTRADIOLon 10-16-2021 Estradiol 62.1 pg/mL Normal [facility] Comment on above: Result Comment: Adul t Female: Follicular phase 12.5 - 166.0 Ovulation phase 85.8 - 498.0 Luteal phase 43.8 - 211.0 Postmenopausal <6.0 - 54.7 1st trimester 215.0 - >4300.0 Ramos ECLIA methodology Performed By: #### E STRADI #### [facility] [address] [place] [address] Dr. Todd Moreno FSHon 10-16-2021 FSH 5.6 mIU/mL Normal [facility] Comment on above: Result Comment: Adul t Female: Follicular phase 3.5 - 12.5 Ovulation phase 4.7 - 21.5 Luteal phase 1.7 - 7.7 Postmenopausal 25.8 - 134.8 Performed By: #### P TT, PT #### [facility] [address] [place] [address] Dr. Todd Moreno LUTEINIZING HORMONE (LH)on 0 10-16-2021 LH 12.1 mIU/mL Normal [facility] Comment on above: Result Comment: Adul t Female: Follicular phase 2.4 - 12.6 Ovulation phase 14.0 - 95.6 Luteal phase 1.0 - 11.4 Postmenopausal 7.7 - 58.5 Performed By: #### P TT, PT #### [facility] [address] [place] [address] Dr. Todd Moreno CBC AUTO DIFFon 10-15-2021 BASO # 0.0 103/ul Normal 0.0-0.1 [facility] Comment on above: Performed By: #### P TT, PT #### [facility] [address] [place] [address] Dr. Todd Moreno Basophils/100 WBC (Bld) 0.6 % Normal 0.2-2.0 [facility] Comment on above: Performed By: #### P TT, PT #### [facility] [address] [place] [address] Dr. Todd Moreno EO # 0.1 103/ul Normal 0.0-0.7 [facility] Comment on above: Performed By: #### P TT, PT #### [facility] [address] [place] [address] Dr. Todd Moreno Eosinophils/100 WBC (Bld) 2.1 % Normal 0.9-7.0 [facility] Comment on above: Performed By: #### P TT, PT #### [facility] [address] [place] [address] Dr. Todd Moreno Erythrocyte distribution width (RBC) [Ratio] 14.0 % Normal 11.0-15.0 [facility] Comment on above: Performed By: #### P TT, PT #### [facility] [address] [place] [address] Dr. Todd Moreno Hematocrit (Bld) [Volume fraction] 37.0 % Normal 36.0-48.0 [facility] Comment on above: Performed By: #### P TT, PT #### [facility] [address] [place] [address] Dr. Todd Moreno Hemoglobin (Bld) [Mass/Vol] 11.6 g/dL Critically low 12.0-16.0 [facility] Comment on above: Performed By: #### P TT, PT #### [facility] [address] [place] [address] Dr. Todd Moreno IG # 0.01 10e3/ul Normal 0.00-0.03 [facility] Comment on above: Performed By: #### P TT, PT #### [facility] [address] [place] [address] Dr. Todd Moreno IG % 0.2 % Normal 0.0-0.5 [facility] Comment on above: Performed By: #### P TT, PT #### [facility] [address] [place] [address] Dr. Todd Moreno LYMPH # 2.2 103/ul Normal 1.2-3.8 [facility] Comment on above: Performed By: #### P TT, PT #### [facility] [address] [place] [address] Dr. Todd Moreno Lymphocytes/100 WBC (Bld) 33.1 % Normal 20.5-60.0 [facility] Comment on above: Performed By: #### P TT, PT #### [facility] [address] [place] [address] Dr. Todd Moreno MANUAL DIFF REQ NO Normal [facility] Comment on above: Performed By: #### P TT, PT #### [facility] [address] [place] [address] Dr. Todd Moreno MCH (RBC) [Entitic mass] 26.3 pg Critically low 26.7-34.0 [facility] Comment on above: Performed By: #### P TT, PT #### [facility] [address] [place] [address] Dr. Todd Moreno MCHC (RBC) [Mass/Vol] 31.4 g/dL Normal 29.9-35.2 [facility] Comment on above: Performed By: #### P TT, PT #### [facility] [address] [place] [address] Dr. Todd Moreno MCV (RBC) [Entitic vol] 83.9 fL Normal 81.0-99.0 [facility] Comment on above: Performed By: #### P TT, PT #### [facility] [address] [place] [address] Dr. Todd Moreno MONO # 0.2 103/ul Critically low 0.3-0.8 [facility] Comment on above: Performed By: #### P TT, PT #### [facility] [address] [place] [address] Dr. Todd Moreno Monocytes/100 WBC (Bld) 3.5 % Normal 1.7-12.0 [facility] Comment on above: Performed By: #### P TT, PT #### [facility] [address] [place] [address] Dr. Todd Moreno NEUT # 4.0 103/ul Normal 1.4-6.5 [facility] Comment on above: Performed By: #### P TT, PT #### [facility] [address] [place] [address] Dr. Todd Moreno Neutrophils/100 WBC (Bld) 60.5 % Normal 43.0-75.0 [facility] Comment on above: Performed By: #### P TT, PT #### [facility] [address] [place] [address] Dr. Todd Moreno Platelet mean volume (Bld) [Entitic vol] 10.6 fL Normal 9.5-13.5 [facility] Comment on above: Performed By: #### P TT, PT #### [facility] [address] [place] [address] Dr. Todd Moreno PLT 263 103/ul Normal 150-450 [facility] Comment on above: Performed By: #### P TT, PT #### [facility] [address] [place] [address] Dr. Todd Moreno RBC 4.41 106/ul Normal 4.20-5.40 [facility] Comment on above: Performed By: #### P TT, PT #### [facility] [address] [place] [address] Dr. Todd Moreno WBC 6.6 103/ul Normal 4.0-11.0 [facility] Comment on above: Performed By: #### P TT, PT #### [facility] [address] [place] [address] Dr. Todd Moreno FREE T4on 10-15-2021 Free T4 [Mass/Vol] 1.05 ng/dL Normal 0.76-1.46 [facility] Comment on above: Performed By: #### P TT, PT #### [facility] [address] [place] [address] Dr. Todd Moreno PROTIMEon 10-15-2021 INR Coag (PPP) [Relative time] 1.02 {INR} Normal [facility] Comment on above: Performed By: #### P TT, PT #### [facility] [address] [place] [address] Dr. Todd Moreno INR GUIDELINES SEE BELOW Normal [facility] Comment on above: Result Comment: RAMÓN RED INR: 2.0 - 3.0 CONDITIONS NOT LISTED BELOW 2.5 - 3.5 FOR PROSTHETIC HEART VALVE REPLACEMENT 2.5 - 3.5 RECURRENT THROMBOSIS Performed By: #### P TT, PT #### [facility] [address] [place] [address] Dr. Todd Moreno PT Coag (PPP) [Time] 11.0 s Normal 9.0-11.6 [facility] Comment on above: Performed By: #### P TT, PT #### [facility] [address] [place] [address] Dr. Todd Moreno PTTon 10-15-2021 aPTT Coag (Bld) [Time] 32.4 s Normal 22.3-36.2 [facility] Comment on above: Performed By: #### P TT, PT #### [facility] [address] [place] [address] Dr. Todd Moreno TSHon 10-15-2021 TSH 1.777 uIU/mL Normal 0.358-3.740 [facility] Comment on above: Performed By: #### P TT, PT #### [facility] [address] [place] [address] Dr. Todd Moreno PAP ACOG PANEL 2: 30 to 65on 10-10-2021 . . Normal [facility] Comment on above: Result Comment: Perf ormed at: WB Performed By: #### [id number] #### [facility] [address] [address] [address] Todd Moreno Age Gdln ACOG Testing 30-65 Normal [facility] Comment on above: Performed By: #### [id number] #### [facility] [address] [place] [address] Dr. Todd Moreno DIAGNOSIS: Comment Normal [facility] Comment on above: Result Comment: NEGA TIVE FOR INTRAEPITHELIAL LESION OR MALIGNANCY. Performed at: WB Performed By: #### [id number] #### [facility] [address] [place] [address] Dr. Todd Moreno HPV Aptima Negative Normal Negative [facility] Comment on above: Result Comment: This nucleic acid amplification test detects fourteen high-risk HPV types (16,18,31,33,35,39,45,51,52,56,58,59,66,68) without differentiation. Performed at: =G Performed By: #### [id number] #### [facility] [address] [place] [address] Dr. Todd Moreno Methodology: Comment Normal [facility] Comment on above: Result Comment: This liquid based ThinPrep(R) pap test was screened with the use of an image guided system. Performed at: WB Performed By: #### [id number] #### [facility] [address] [place] [address] Dr. Todd Moreno Note: Comment Normal [facility] Comment [...] Performed at: WB Performed By: #### [id number] #### [facility] [address] [place] [address] Dr. Todd Moreno Performed by: Comment Normal [facility] Comment on above: Result Comment: Magalie Lemus, Legal Research Analyst (ASCP) Performed at: WB Performed By: #### [id number] #### [facility] [address] [address] [address] Todd Moreno Specimen adequacy: Comment Normal [facility] Comment on above: Result Comment: Sati sfactory for evaluation. Endocervical and/or squamous metaplastic cells (endocervical component) are present. Performed at: WB Performed By: #### [id number] #### [facility] [address] [address] [address] Todd Moreno COVID-19 Antigenon 2 COVID-19 [...] its performance Corinne Disclaimer characteristic determined by [employer] and Corinne Disclaimer validated at [facility]. This Corinne Disclaimer test has not [...] is terminated or revoked sooner. PERFORMED BY: [facility] [address] [place] [address] PATHOLOGIST RESPIRATORY THERAPIST ASSISTANT JONATHAN SHEPARD M.D. [facility] Comment on above: Performed By: #### S RHODA COVID-19 CORINNE #### [facility] [address] [id number] [facility] HCG,Urineon 03-30-2021 Beta HCG ( test) Ql (U) Negative Normal [facility] Comment on above: Result Comment: PERF ORMED BY: [place] [address] PATHOLOGIST RESPIRATORY THERAPIST ASSISTANT JONATHAN SHEPARD M.D. Performed By: #### U HCG #### [facility] [address] Corinne Ag Negativeon 03-30-19 Corinne Ag Negative Negative Normal Negative [facility] Comment on above: Result Comment: This is a duplicate Corinne SARS Antigen (KAEL) result to be used for statistical tracking purpose only. PERFORMED BY: [place] [address] PATHOLOGIST RESPIRATORY THERAPIST ASSISTANT JONATHAN SHEPARD M.D. Performed By: #### S OFIANEG, COVID-19 CORINNE #### [facility] [address] [place] [address] COVID-19 FRMCon 03-28-2021 SARS-CoV-2 (COVID-19) RNA JESE+probe Ql (Unsp spec) Negative Normal Negative [facility] Comment on above: Order Comment: Healt hcare Worker?: N Result Comment: Testing for SARS-CoV-2 by RT-PCR This test was developed and its performance characteristics determined by [employer], [employer]) and validated at the [facility]. This test has not been FDA [...] is terminated or revoked sooner. PERFORMED BY: [address] [place] [address] PATHOLOGIST RESPIRATORY THERAPIST ASSISTANT JONATHAN SHEPARD M.D. Performed By: #### C OVID 19 [facility] #### [address] [place] [id number] [facility] XR elbow LT 2Von 03-01-2021 XR elbow LT 2V [facility] Main [place] [address] [place] [address] XRay Report Signed Patient: Moira Almaguer MR#: [id number] : 1985 Acct:[id number] Age/Sex: 35 / F ADM Date: 03/01/21 Loc: [facility] Room: Type: [facility] Attending Dr: Leandro Robles MD Ordering Provider: [...] Valdez Mcwilliams M.D.03/01/2021 1:47 PM Dictation Location: [place] [address] Transcribed By: [facility] 03/01/21 1347 Dictated By: Valdez Mcwilliams [...] are recommended in 7 to 10 days. [facility] Workstation ID: [id number] Dictated by: MAR DAWSON on SunSep 08, 2020 11:41:42 PM EDT Transcribed by: SHERRILL SMYTH on SunSep 09, 2020 12:10:05 AM EDT Finalized by: MAR DAWSON on SunSep 09, 2020 12:16:26 AM EDT [facility] Comment on above: Order Comment: Injur y/Trauma [...] SunSep 08, 2020 11:42:00 PM EDT [facility] Comment on above: Order Comment: Injur y/Trauma or Illness?:Injury/Trauma How long have you had these symptoms (acute/chronic)?:Acute Reason for exam?:fall, pain to left shoulder radiating down arm History of cancer?:no Surgeries, chemotherapy, or radiation?:no Type of Exam?:Initial Mechanism of injury?:fall Vital Signs Date Time Vital Sign Value Performing Clinician Facility 04-09-2024 14:01-0500 Body mass index (BMI) [Ratio] 35.87 kg/m2 Rogers James DO Work Phone: [facility] 04-09-2024 14:01-0500 Body weight 103.87 kg Rogers James DO Work Phone: [facility] 04-09-2024 14:01-0500 Diastolic blood pressure 72 mm[Hg] Rogers James DO Work Phone: [facility] 04-09-2024 14:01-0500 Systolic blood pressure 118 mm[Hg] Rogers James DO Work Phone: [facility] 03-25-2024 14:23-0500 Body mass index (BMI) [Ratio] 35.71 kg/m2 Iveth MCGRATH Work Phone: [facility] 03-25-2024 14:23-0500 Body weight 103.42 kg Iveth Hood PA Work Phone: [facility] 03-25-2024 14:23-0500 Diastolic blood pressure 70 mm[Hg] Iveth Hood PA Work Phone: [facility] 03-25-2024 14:23-0500 Systolic blood pressure 108 mm[Hg] Iveth Hood PA Work Phone: [facility] 02-20-2024 11:40-0500 Body mass index (BMI) [Ratio] 34.68 kg/m2 Rogers James DO Work Phone: [facility] 02-20-2024 11:40-0500 Body weight 100.43 kg Rogers James DO Work Phone: [facility] 02-20-2024 11:40-0500 Diastolic blood pressure 70 mm[Hg] Rogers James DO Work Phone: [facility] 02-20-2024 11:40-0500 Systolic blood pressure 120 mm[Hg] Rogers James DO Work Phone: [facility] 02-07-2024 11:42-0500 Body mass index (BMI) [Ratio] 34.3 kg/m2 Iveth MCGRATH Work Phone: [facility] 02-07-2024 11:42-0500 Body weight 99.34 kg Iveth Hood PA Work Phone: [facility] 02-07-2024 11:42-0500 Diastolic blood pressure 70 mm[Hg] Iveth Hood PA Work Phone: [facility] 02-07-2024 11:42-0500 Systolic blood pressure 118 mm[Hg] Iveth Vasquezey PA Work Phone: [facility] 01-10-2024 10:44-0400 Body mass index (BMI) [Ratio] 33.89 kg/m2 Rogers James DO Work Phone: [facility] 01-10-2024 10:44-0400 Body weight 98.16 kg Rogers James DO Work Phone: [facility] 01-10-2024 10:44-0400 Diastolic blood pressure 74 mm[Hg] Rogers James DO Work Phone: [facility] 01-10-2024 10:44-0400 Systolic blood pressure 120 mm[Hg] Rogers James DO Work Phone: [facility] 12-13-2023 10:51-0400 Body mass index (BMI) [Ratio] 33.33 kg/m2 Rogers James DO Work Phone: [facility] 12-13-2023 10:51-0400 Body weight 96.53 kg Rogers James DO Work Phone: [facility] 12-13-2023 10:51-0400 Diastolic blood pressure 80 mm[Hg] Rogers James DO Work Phone: [facility] 12-13-2023 10:51-0400 Systolic blood pressure 126 mm[Hg] Rogers James DO Work Phone: [facility] 11-15-2023 10:14-0400 Body mass index (BMI) [Ratio] 33.11 kg/m2 Rogers James DO Work Phone: [facility] 11-15-2023 10:14-0400 Body weight 95.89 kg Rogers James DO Work Phone: [facility] 11-15-2023 10:14-0400 Diastolic blood pressure 78 mm[Hg] Rogers James DO Work Phone: [facility] 11-15-2023 10:14-0400 Systolic blood pressure 118 mm[Hg] Rogers James DO Work Phone: [facility] 03-01-2021 11:00-0500 Body height 170.18 cm Leandro Robles Other [email or web address] Other 03-01-2021 11:00-0500 Body mass index (BMI) [Ratio] 30.07 kg/m2 Leandro Robles Other [email or web address] Other 03-01-2021 11:00-0500 Body weight 87.09 kg Leandro Robles Other [email or web address] Other Encounters Encounter Date Encounter Type Care Provider Facility Start: 04-09-2024 End: 04-09-2024 Bamboo flowsheet Rogers James DO Work Phone: [facility] Start: 04-09-2024 End: 04-14-2024 Bamboo flowsheet Rogers James DO Work Phone: [facility] Start: 04-09-2024 End: 04-14-2024 Clinisync Result Encounter Generic External Data Provider [facility] External Department Unsolicited Start: 04-09-2024 End: 04-09-2024 ambulatory ROGERS JAMES Not Available Start: 04-09-2024 End: 04-09-2024 flow sheet Rogers James DO Work Phone: [facility] Comment on above: Third trimester preg rocky; 36 weeks gestation of ; Tooth infection; Other iron deficiency anemia; size inconsistent with dates Start: 03-25-2024 End: 03-25-2024 Bamboo flowsheet Iveth [...] second trimester Start: 02-04-2024 End: 02-04-2024 ambulatory [facility] Start: 01-30-2024 End: 01-30-2024 ambulatory [facility] Start: 01-23-2024 End: 01-23-2024 Telephone encounter [...] Start: 01-07-2024 End: 01-07-2024 ambulatory ROB GONZALES [facility] Start: 12-24-2023 End: 12-24-2023 ambulatory SRIDEVI FREITAS [facility] Start: 12-13-2023 End: 12-13-2023 Bamboo flowsheet Rogers James DO Work Phone: [facility] Start: 12-13-2023 End: 12-14-2023 Bamboo flowsheet Rogers James DO Work Phone: [facility] Start: 12-13-2023 End: 12-14-2023 External Result Encounter Rogers James DO Work Phone: [facility] External Department Unsolicited Start: 12-13-2023 End: 12-13-2023 ambulatory ROGERS JAMES Not Available Start: 12-13-2023 End: 12-13-2023 flow sheet Rogers James DO Work Phone: [facility] Comment on above: 19 weeks gestation o f ; Exposure to STD; Vaginal discharge; Elevated glucose Start: 11-15-2023 End: 11-15-2023 Bamboo flowsheet Rogers James DO Work Phone: [facility] Start: 11-15-2023 End: 11-15-2023 Bamboo flowsheet Rogers James DO Work Phone: [facility] Start: 11-15-2023 End: 11-15-2023 ambulatory ROGERS JAMES Not Available Start: 11-15-2023 End: 11-15-2023 flow sheet Rogers James DO Work Phone: [facility] Comment on above: Second trimester pre gnancy; History of gestational diabetes; Diabetes mellitus screening; Screening, , for anatomic survey Start: 11-07-2023 End: 11-07-2023 Clinisync Result Encounter Iveth MCGRATH Work Phone: [facility] External Department Unsolicited Start: 11-07-2023 End: 11-07-2023 Clinisync Result Encounter Iveth MCGRATH Work Phone: [facility] Unsolicited Start: 10-18-2023 End: 10-18-2023 ambulatory ROGERS RAMIREZ Not Available Start: 05-21-2023 End: 05-21-2023 ambulatory [...] 03-01-2021 End: 03-01-2021 ambulatory Leandro Robles Other [email or web address] Other Start: 03-01-2021 Encounter for other preprocedural examination Leandro Robles [facility] Start: 03-01-2021 Office outpatient ne w 45 minutes Leandro Robles [facility] Start: 09-09-2020 End: 09-09-2020 [facility] Date Procedure Procedure Detail Performing Clinician Start: 04-09-2024 ALL MISCELLANEOUS TEST Rogers James DO Work Phone: Start: 03-25-2024 Urnls dip stick/tabl et rgnt [...] auto t hin layer prep mnl screen [facility] DO Work Phone: Start: 10-05-2021 Microscopic observat ion [Identifier] in Cervix by Cyto stain Iveth MCGRATH Work Phone: Plan of Treatment Date Care Activity Detail Author Start: 03-08-2028 Screening for malign ant neoplasm of cervix [facility] Start: 10-05-2026 Screening for malign ant neoplasm of cervix [facility] Start: 04-21-2024 End: 04-21-2024 Patient encounter procedure 04/21/2024 10:00 AM EST Office Visit [facility] [address] [place] [id number] Valdo Zelaya MD [address] [place] [address] (Fax) [facility] Start: 04-17-2024 End: 04-17-2024 Patient encounter procedure 04/17/2024 11:20 AM EST Routine [facility] [address] [place] [address] Iveth Hood PA [address] [place], [place] [id number] [facility] Start: 04-17-2024 End: 04-17-2024 Professional / ancillary services management 04/17/2024 10:30 AM EST Ancillary Procedure [facility] [address] [place] [address] [facility] Start: 04-09-2024 End: 04-09-2025 CULTURE, GROUP B STREP WITH SUSCEPTIBLITY CULTURE, GROUP B STREP WITH SUSCEPTIBLITY Lab Routine Third trimester Expected: 04/09/2024, Expires: 04/09/2025 [facility] Work Phone: Comment on above: Expected: 04/09/2024 , Expires: 04/09/2025 Start: 04-09-2024 End: 04-09-2025 US for US OB follow up transabdominal approach Imaging Routine Third trimester size inconsistent with dates Expected: 04/09/2024, Expires: 04/09/2025 [facility] Comment on above: Expected: 04/09/2024 , Expires: 04/09/2025 Start: 04-09-2024 End: 04-09-2024 Patient encounter procedure 04/09/2024 1:30 PM EST Routine [facility] [address] [place] [address] Rogers Ramirez DO [address] [place] [address] [facility] Start: 03-24-2024 End: 03-24-2024 Patient encounter procedure 03/24/2024 11:20 AM EST Routine [facility] [address] [id number] Iveth Hood PA [address] [place] [address] [facility] Start: 03-10-2024 End: 03-10-2025 [...] AM EST Routine [facility] [address] [id number] Rogers Ramirez, DO [address] [place] [address] [facility] Start: 02-20-2024 End: 02-19-2025 CBC panel - Blood by Automated count CBC Lab Routine Diabetes mellitus screening Expected: 02/20/2024 (Approximate), Expires: 02/19/2025 [facility] Work Phone: Comment on above: Expected: 02/20/2024 (Approximate), Expires: 02/19/2025 Start: 02-20-2024 End: 02-20-2024 Patient encounter procedure 02/20/2024 11:00 AM EST Routine [facility] [address] [place] [id number] Rogers Ramirez, DO [address] [place] [address] [facility] Start: 02-07-2024 End: 02-06-2025 US for US OB SCAN FOR GROWTH Imaging Routine size consistent with dates during in second trimester Expected: 02/07/2024 (Approximate), Expires: 02/06/2025 [facility] Work Phone: Comment on above: Expected: 02/07/2024 (Approximate), Expires: 02/06/2025 Start: 02-07-2024 End: 02-07-2024 Patient encounter procedure 02/07/2024 11:20 AM EST Routine [facility] [address] [place] [address] Iveth Hood PA [address] [place] [address] [facility] Start: 01-10-2024 End: 01-10-2024 Patient encounter procedure [facility] Comment on above: Arrived Start: 12-17-2023 End: 12-17-2023 Professional / ancillary services management 12/17/2023 8:00 AM EDT Ancillary Procedure [facility] [address] [place] [address] [facility] Start: 12-13-2023 End: 01-12-2024 Alpha fetoprotein, maternal Alpha fetoprotein, maternal Lab Routine 19 weeks gestation of Expected: 12/13/2023 (Approximate), Expires: 01/12/2024 [facility] Comment on above: Expected: 12/13/2023 (Approximate), Expires: 01/12/2024 Start: 12-13-2023 End: 12-13-2023 Patient encounter procedure 12/13/2023 10:10 AM EDT Routine [facility] [address] [place] [address] Rogers Ramirez DO [address] [place], [place] [id number] [facility] Start: 11-18-2023 Influenza vaccination Influenza Vacc ine (#1) [facility] Start: 11-15-2023 End: 11-14-2024 Measurement of glucose 1 hour after glucose challenge for glucose tolerance test Glucose tolerance, 1 hour Lab Routine Diabetes mellitus screening Expected: 11/15/2023 (Approximate), Expires: 11/14/2024 [facility] Work Phone: Comment on above: Expected: 11/15/2023 (Approximate), Expires: 11/14/2024 Start: 11-15-2023 End: 11-14-2024 US for US OB ANATOMY SINGLE W US OB CERVICAL LENGTH Imaging Routine Second trimester History of gestational diabetes Screening, , for anatomic survey Expected: 11/15/2023 (Approximate), Expires: 11/14/2024 [facility] Comment on above: Expected: 11/15/2023 (Approximate), Expires: 11/14/2024 Start: 11-15-2023 End: 11-15-2023 Patient encounter procedure 11/15/2023 9:50 AM EDT Routine [facility] [address] [place] [phone] Rogers Ramirez, DO [address] [place] [address] [facility] OB CBC W Auto Different ial panel - Blood CBC and differential Lab Routine Third trimester Other iron deficiency anemia Ordered: 04/09/2024 [facility] Comment on above: Ordered: 04/09/2024 CHLAMYDIA TRACHOMATI S (GENITO/STI) CHLAMYDIA TRACHOMATIS (GENITO/STI) Lab Routine Exposure to STD Ordered: 12/13/2023 [facility] Comment on above: Ordered: 12/13/2023 Ferritin [Mass/volum e] in Serum or Plasma Ferritin Lab Routine Third trimester Other iron deficiency anemia Ordered: 04/09/2024 [facility] Comment on above: Ordered: 04/09/2024 Hemoglobin A1c/Hemoglobin.total in Blood Hemoglobin A1c Lab Routine Diabetes mellitus screening Ordered: 02/20/2024 [facility] Comment on above: Ordered: 02/20/2024 Neisseria gonorrhoea e DNA [Presence] in Unspecified specimen by JESE with probe detection Neisseria gonorrhea DNA probe, direct Lab Routine Exposure to STD Ordered: 12/13/2023 [facility] Comment on above: Ordered: 12/13/2023 SURESWAB(R) ADVANCED VAGINITIS PLUS, TMA SURESWAB(R) ADVANCED VAGINITIS PLUS, TMA Pathology and Cytology Routine Vaginal discharge Ordered: 12/13/2023 [facility] Work Phone: Comment on above: Ordered: 12/13/2023 Vitamin D 1,25 dihydroxy Vitamin D 1,25 dihydroxy Lab Routine Third trimester Ordered: 04/09/2024 [facility] Comment on above: Ordered: 04/09/2024 Immunizations Immunization Date Immunization Notes Care Provider [facility] 12-26-2016 influenza virus vacc ine, unspecified formulation Iveth MCGRATH Work Phone: [facility] Payers Date Payer Category Payer Private Health Insurance [id number] 2021 [facility] Health [facility] [id number] 2021 Unknown FRONTPATH FRONTP ATH [id number] 2021-Present [phone] [place] [id number]. [id number] 2019 Unknown [id number] 1985 Unknown [id number] ..840.1.013365.3.579.2. 902 1986 Unknown [id number] 05.04.840.1.257103.3.579.2. 593 1986 Unknown [id number] 2.840.1.000920.3.579.2. 593 1986 Unknown [id number] 2.16840.1.122685.3.579.2. 593 1986 Unknown [id number] 2.840.1.439737.3.579.2. 59 1986 Unknown [id number] 2.840.1.913984.3.579.2. 593 1986 Unknown [id number] 2.840.1.435922.3.579.2. 59 1986 Unknown [id number] 2.840.1.061946.3.579.2. 1285 1986 Unknown [id number] .1.894891.3.579.2. 1285 1986 Unknown [id number] .840.1.477494.3.579.2. 1285 1986 Unknown [id number] .1.490419.3.579.2. 1285 1986 Unknown [id number] 840.1.183092.3.579.2. 1258 1986 Unknown [id number] 05.04.830.1.199184.3.579.2. 1258 1986 Unknown [id number] .840.1.790393.3.579.2. 1258 1986 Unknown [id number] 2.840.1.574603.3.579.2. 1258 1986 Unknown [id number] 2.840.1.898645.3.579.2. 1258 1986 Unknown [id number] 2840.1.475866.3.579.2. 1258 1986 Unknown [id number] ..840.1.686785.3.579.2. 1259 1986 Unknown [id number] 2.16.840.1.656148.3.579.2. 1259 1986 Unknown [id number] 2.16.840.1.811437.3.579.2. 1259 1986 Unknown [id number] 2.16.840.1.973019.3.579.2. 1259 1959 Self-pay 1959 Unknown [id number] 1959 Unknown [id number] 1959 Unknown [id number] Unknown [id number] 2.16.840.1.329889.3.579.2. 593 Social History Date Type Detail Facility Start: 10-15-2022 End: 02-05-2023 Sex Assigned At [facility] Start: 02-12-2023 Tobacco smoking status [facility] Ex-smoke r [facility] End: 08-19-2011 History [...] to any clubs or organizations such as hinduism groups, unions, fraternal or athletic groups, or [...] Gender identity Identifies as female gender (finding) [facility] Healthcare Clinical Notes 03-01-2021 to 04-09-2024 Chika Chun LPN - 04/09/2024 1:30 PM RAMILA Pompa - 03/25/2024 1:40 PM Stephanie Vincent MA - 03/10/2024 9:30 AM RAMILA Pompa - 02/20/2024 11:00 AM RAMILA Pompa - 02/07/2024 11:20 AM EST Note Date & Type Note Facility 04-09-2024 History of Presen t illness Narrative Reason for Appointment: Patient ID: Moira Starr is a 38 y.o. female who presents for Routine Visit Patient presents today for Return OB appointment. MEDICATIONS Current Outpatient Medications Medication Instructions Continuous Glucose Certified Cytotechnologist (FreeStyle Adriana 2 Duncan) device 1 Device, Does not apply, 4 [...] Diagnosis Date ADHD (attention deficit hyperactivity disorder) ([facility]) ADHD (attention deficit hyperactivity disorder) ([facility]) Ankle pain, left Anxiety with [...] Diagnosis Date ADHD (attention deficit hyperactivity disorder) ([facility]/HCC) ADHD (attention deficit hyperactivity disorder) ([facility]) Ankle pain, left Anxiety with [...] nursing note reviewed. Exam conducted with a crossband layer present. Vitals: Estimated body mass index is 35.87 kg/m as calculated from the following: Height as of 02/12/23: 5' 7 . Weight as of this encounter: 229 lb. BP: 118/72 Patient's last menstrual period was 07/28/2023. ASSESSMENT & PLAN ICD-10-CM 1. Third trimester Z34.93 POCT urinalysis dipstick manually resulted CULTURE, GROUP B STREP WITH SUSCEPTIBLITY CULTURE, GROUP B STREP WITH SUSCEPTIBLITY 2. 36 weeks gestation of Z3A.36 Patient is doing well but has complaints of being tired and having maternal discomfort due to . Patient verbalized frequent movement and was instructed to perform kick counts three times per day. labor precautions were given, LARC consent was signed/declined, and GBS was obtained. Cervical check was performed and patient is 0cm dilated. Pt given growth ultrasound to have obtained. Pt has a tooth infection- rx for amoxicillin faxed to pharmacy. Orders Placed This Encounter Procedures CULTURE, GROUP B STREP WITH SUSCEPTIBLITY POCT urinalysis dipstick manually resulted Follow Up: Patient is to return to office in 1 week for routine OB appointment Documented by Chika Chun LPN on behalf of: Rogers Ramirez DO documented in this encounter [facility] 03-25-2024 History of Presen t illness Narrative Reason for Appointment: Patient ID: Moira Starr is a 38 y.o. female who presents for No chief complaint on file. Patient presents today for Return OB appointment. MEDICATIONS Current Outpatient Medications Medication Instructions Continuous Glucose Certified Cytotechnologist (FreeStyle Adriana 2 Duncan) device 1 Device, Does not apply, 4 [...] Diagnosis Date ADHD (attention deficit hyperactivity disorder) ([facility]) ADHD (attention deficit hyperactivity disorder) ([facility]/HCC) Ankle pain, left Anxiety with depression Epidermal [...] disorder) (CMS/HCC) ADHD (attention deficit hyperactivity disorder) ([facility]) Ankle pain, left Anxiety with [...] nursing note reviewed. Exam conducted with a crossband layer present. Vitals: Estimated body mass index is [...] of: RAMILA Joshi documented in this encounter [facility] 03-10-2024 History of Presen t illness Narrative Reason for Appointment: Patient ID: Moira Starr is a 38 y.o. female who presents for Routine Visit Patient presents today for Return OB appointment. MEDICATIONS Current Outpatient Medications Medication Instructions Continuous Glucose Certified Cytotechnologist (AirtaskerStyle Adriana 2 Duncan) device 1 Device, Does not apply, 4 times daily MV-Min-Fe Fum-FA-DHA ( 1 PO) Take by mouth. saccharomyces boulardii (FLORASTOR) 250 mg, 2 times daily ALLERGIES Allergies Allergen Reactions Sertraline Other Flat emotions Other Reaction(s): decreased emotional lability PROBLEMS Active Ambulatory Problems Diagnosis Date Noted Attention deficit hyperactivity disorder (ADHD) ([facility]) 09/15/2022 Cervicalgia 09/15/2022 Chronic fatigue 09/15/2022 Chronic tension-type headache, not intractable 09/15/2022 Generalized anxiety disorder ([facility]) 09/15/2022 HPV (human papilloma virus) infection 09/15/2022 Large breasts 09/15/2022 LGSIL on Pap smear of cervix 09/15/2022 Migraine with aura and without status migrainosus, not intractable ([facility]) 09/15/2022 Missed period 09/15/2022 Moderate recurrent major depression ([facility]) 09/15/2022 Other chronic pain 09/15/2022 Radicular pain 09/15/2022 Vitamin D deficiency 09/15/2022 History of miscarriage 06/22/2023 Positive urine test 06/22/2023 23 weeks gestation of 01/10/2024 32 weeks gestation of 03/10/2024 Third trimester 03/10/2024 Resolved Ambulatory Problems Diagnosis Date Noted No Resolved Ambulatory Problems Past Medical History: Diagnosis Date ADHD (attention deficit hyperactivity disorder) ([facility]) ADHD (attention deficit hyperactivity disorder) ([facility]) Ankle pain, left Anxiety with [...] Diagnosis Date ADHD (attention deficit hyperactivity disorder) ([facility]) ADHD (attention deficit hyperactivity disorder) ([facility]) Ankle pain, left Anxiety with [...] Rogers Ramirez DO documented in this encounter [facility] 02-20-2024 History of Presen t illness Narrative Reason for Appointment: Patient ID: Moira Starr is a 38 y.o. female who presents for Routine Visit Patient presents today for Return OB appointment. MEDICATIONS Current Outpatient Medications Medication Instructions Continuous Glucose Certified Cytotechnologist (AirtaskerStyle Adriana 2 Duncan) device 1 Device, Does not apply, 4 [...] Rogers Ramirez DO documented in this encounter [facility] 02-07-2024 History of Presen t illness Narrative Reason for Appointment: Patient ID: Moira Starr is a 38 y.o. female who presents for Routine Visit Patient presents today for Return OB appointment. MEDICATIONS Current Outpatient Medications Medication Instructions Continuous Glucose Certified Cytotechnologist (FreeStyle Adriana 2 Duncan) device 1 Device, Does not apply, 4 times daily ergocalciferol (VITAMIN D2) 1.25 mg, Oral, Weekly MV-Min-Fe Fum-FA-DHA ( 1 PO) Oral saccharomyces boulardii (FLORASTOR) 250 mg, Oral, 2 times daily ALLERGIES Allergies Allergen Reactions Sertraline Other Flat emotions Other Reaction(s): decreased emotional lability PROBLEMS Active Ambulatory Problems Diagnosis Date Noted Attention deficit hyperactivity disorder (ADHD) ([facility]) 09/15/2022 Cervicalgia 09/15/2022 Chronic fatigue 09/15/2022 Chronic tension-type headache, not intractable 09/15/2022 Generalized anxiety disorder ([facility]) 09/15/2022 HPV (human papilloma virus) [...] of: RAMILA Joshi documented in this encounter [facility] 01-23-2024 Telephone encount er Note Endocrinology [...] we will have to put her with ART GILDER of her choice (since she would be a returning Angelina pt) to establish care. [facility] 01-23-2024 Miscellaneous Notes Formattin g of [...] we will have to put her with ART GILDER of her choice (since she would be a returning Angelina pt) to establish care. documented in this encounter [facility] 01-10-2024 History of Presen t illness Narrative Reason for Appointment: Patient ID: Moira Starr is a 38 y.o. female who presents for Routine Visit Patient presents today for Return OB appointment. MEDICATIONS Current Outpatient Medications Medication Instructions Continuous Glucose Certified Cytotechnologist (FreeStyle Adriana 2 Duncan) device 1 Device, Does not apply, 4 [...] Date Noted Attention deficit hyperactivity disorder (ADHD) ([facility]) 09/15/2022 Cervicalgia 09/15/2022 Chronic fatigue 09/15/2022 Chronic tension-type headache, not intractable 09/15/2022 Generalized anxiety disorder ([facility]) 09/15/2022 HPV (human papilloma virus) infection 09/15/2022 Large breasts 09/15/2022 LGSIL on Pap smear of cervix 09/15/2022 Migraine with aura and without status migrainosus, not intractable ([facility]) 09/15/2022 Missed period 09/15/2022 Moderate recurrent major depression ([facility]) 09/15/2022 Other chronic pain 09/15/2022 Radicular pain 09/15/2022 Vitamin D deficiency 09/15/2022 History of miscarriage 06/22/2023 Positive urine test 06/22/2023 Resolved Ambulatory Problems Diagnosis Date Noted No Resolved Ambulatory Problems Past Medical History: Diagnosis Date ADHD (attention deficit hyperactivity disorder) ([facility]) ADHD (attention deficit hyperactivity disorder) ([facility]) Ankle pain, left Anxiety with [...] Diagnosis Date ADHD (attention deficit hyperactivity disorder) ([facility]) ADHD (attention deficit hyperactivity disorder) ([facility]) Ankle pain, left Anxiety with [...] nursing note reviewed. Exam conducted with a crossband layer present. Vitals: Estimated body mass index is [...] Rogers Ramirez DO documented in this encounter [facility] 12-13-2023 History of Presen t illness Narrative Reason for Appointment: Patient ID: Moira Starr is a 38 y.o. female who presents for Routine Visit and STI Screening Patient presents today for Return OB appointment. MEDICATIONS Current Outpatient Medications Medication Instructions Continuous Glucose Certified Cytotechnologist (Cogito Adriana 2 Duncan) device 1 Device, Does not apply, 4 [...] nursing note reviewed. Exam conducted with a crossband layer present. Vitals: Estimated body mass index is [...] Rogers Ramirez DO documented in this encounter [facility] 11-15-2023 History of Presen t illness [...] Date Noted Attention deficit hyperactivity disorder (ADHD) ([facility]) 09/15/2022 Cervicalgia 09/15/2022 Chronic fatigue 09/15/2022 Chronic tension-type headache, not intractable 09/15/2022 Generalized anxiety disorder ([facility]) 09/15/2022 HPV (human papilloma virus) infection 09/15/2022 Large breasts 09/15/2022 LGSIL on Pap smear of cervix 09/15/2022 Migraine with aura and without status migrainosus, not intractable ([facility]/HCC) 09/15/2022 Missed period 09/15/2022 Moderate recurrent major depression (HCC) ([facility]) 09/15/2022 Other chronic pain 09/15/2022 Radicular pain 09/15/2022 Vitamin D deficiency 09/15/2022 History of miscarriage 06/22/2023 Positive urine test 06/22/2023 Resolved Ambulatory Problems Diagnosis Date Noted No Resolved Ambulatory Problems Past Medical History: Diagnosis Date ADHD (attention deficit hyperactivity disorder) ([facility]) ADHD (attention deficit hyperactivity disorder) ([facility]) Ankle pain, left Anxiety with [...] Diagnosis Date ADHD (attention deficit hyperactivity disorder) ([facility]) ADHD (attention deficit hyperactivity disorder) ([facility]) Ankle pain, left Anxiety with [...] or undercooked meat, and stay away from [facility]. Patient has been consulted regarding any further [...] Iveth Hood PA-C documented in this encounter [facility] 03-01-2021 Evaluation note Encounter Date Diagnosis Assessment Notes Feb, Closed fracture of capitellum of left humerus with routine healing (ICD-10 - S42.452D) MRI reviewed with patient as healing fractures within the elbow. Discussed that her lacking range of motion may be a intermediate condition, with or without surgical intervention. Instructed [...] M24.022) Feb, Pre-op exam (ICD-10 - Z01.818) [email or web address] Other Evaluation note* Diagnosis Second trimester state, [...] state, incidental [facility] Diagnosis Third trimester state, incidental 36 weeks gestation of Tooth infection Acute apical periodontitis of pulpal origin Other iron deficiency anemia size inconsistent with dates [facility] Narrative - Reported* Type Description Date Medical History ADHD [email or web address] Other Summary Purpose Family History No Family [...] DATE CREATED AUTHOR AUTHOR'S ORGANIZ ATION 10/06/2021 [facility] DATE CREATED AUTHOR AUTHOR'S ORGANIZ ATION 06/08/2022 [facility] DATE CREATED AUTHOR AUTHOR'S ORGANIZ ATION 02/06/2024 [facility] DATE CREATED AUTHOR AUTHOR'S ORGANIZ ATION 04/11/2024 [facility] d[facility] Specialists EPIC REASON FOR VISIT (unrecogniz ed section and content) Reason Comments Routine Visit Reason Comments Routine Visit STI Screening Care Teams (unrecognized sec tion and content) Grain Mixer Relationship Specialty Start Date End Date Emily Alfaro DO [address] [place] [address] PCP - General Family Medicine 09/14/22 Grain Mixer Relationship Specialty Start Date End Date Emily Alfaro DO [address] [place] [address] PCP - General Family Medicine 09/14/22 Grain Mixer Relationship Specialty Start Date End Date Emily Alfaro DO [address] [place] [address] PCP - General Family Medicine 09/14/22 Grain Mixer Relationship Specialty Start Date End Date Emily Alfaro DO [address] [place] [address] PCP - General Family Medicine 09/14/22 Grain Mixer Relationship Specialty Start Date End Date Emily Alfaro DO [address] [place] [address] PCP - General Family Medicine 09/14/22 Grain Mixer Relationship Specialty Start Date End Date Emily Alfaro DO [address] [facility] [place] [address] PCP - General Family Medicine 09/14/22 Grain Mixer Relationship Specialty Start Date End Date Emily Alfaro DO [address] [place] [address] PCP - General Family Medicine 09/14/22 Grain Mixer Relationship Specialty Start Date End Date Emily Alfaro DO [address] [facility] [place] [address] PCP - General Family Medicine 09/14/22 Grain Mixer Relationship Specialty Start Date End Date Emily Alfaro DO [address] [facility] [place] [address] PCP - General Family Medicine 09/14/22 Grain Mixer Relationship Specialty Start Date End Date Emily Alfaro DO [address] [facility] [place] [address] PCP - General Family Medicine 09/14/22 Grain Mixer Relationship Specialty Start Date End Date Emily Alfaro DO [address] [facility] [place] [address] PCP - General Family Medicine 09/14/22 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 [employer] [facility]. provides no warranty or guarantee of the accuracy or completeness of information in this document.
--- NOTE | 2024-04-24 | US_ITS ---
[address] [address] Patient Name: DANYELL ROSENBERG MRN: [id number] date: 1985 Sex: F Assigned Patient Location: US Current Patient Location: US Accession/Order Number: [id number] Exam Date: 04/24/2024 08:09 Report Date: 04/24/2024 09:26 At the request of: ROGERS HODGE Procedure: US OB BPP w non-stress EXAMINATION: US OB BPP w non-stress HISTORY: History of gestational diabetes Z34.93 COMPARISON: No relevant comparison available. TECHNIQUE: Ultrasound biophysical profile was performed in the radiology department. non-reactive stress testing was performed by nursing staff in the birthing center. FINDINGS: BREATHING MOVEMENTS: 2 GROSS BODY MOVEMENTS: 2 TONE: 2 QUALITATIVE AMNIOTIC FLUID VOLUME: 2 PRESENTATION: CEPHALIC HEART RATE: 131.71 bpm AMNIOTIC FLUID VOLUME: 15.5 cm GESTATIONAL AGE: 38w5d US/US OB BPP w non-stress IMPRESSION: Total biophysical profile score: 8 Electronically authenticated by: CARIDAD DOBSON Date: 04/24/2024 09:26
--- OUTSIDE RECORDS SUMMARY | 2024-04-24 00:22 | XMS_ITS | CCD ---
Author Organization [facility] Care Team Providers Care Member Service Specialist Name Role Phone HUBER LUNDBERG Attending Unavailable [...] Unavailable JAMES ., DR MCCLOUD Admitting Unavailable WINSTED, DR CARIDAD [employer] Unavailable JAMES ., [...] Unavailable MISC, DR JACKSON Primary Care Unavailable Elizabeth DO, Emily G Primary Care Provider SRIDEVI FREITAS Attending Unavailable ELIZABETH, EMILY G Referring Unavailable ELIZABETH, EMILY G Primary Care Unavailable ROB GONZALES Attending Unavailable ELIZABETH, EMILY G Referring Unavailable ELIZABETH, EMILY G Primary Care Unavailable SRIDEVI FREITAS Attending Unavailable ELIZABETH, EMILY G Referring Unavailable ELIZABETH, EMILY G Primary Care Unavailable ROB GONZALES Attending Unavailable ELIZABETH, EMILY G Referring Unavailable ELIZABETH, EMILY G Primary Care Unavailable JAMES, YOU Attending Unavailable IVETH HOOD Attending Unavailable PARESH, IVETH Attending Unavailable VALDO FENTON Attending Unavailable JAMES, YOU Attending Unavailable JAMES, YOU Attending Unavailable JAMES, YOU Attending Unavailable IVETH HOOD Attending Unavailable JAMES, YOU Attending Unavailable JAMES, YOU Attending Unavailable PARESH, IVETH Attending Unavailable Allergies Allergy Classification Reported Allergen(s) Allergy Type Date of Onset Reaction(s) Facility (20 sources) Sertraline Drug Allergy 08-10-2022 Other [facility] Work Phone: Medications Current Medications Medication Drug Class(es) Dates Sig (Normalized) Sig (Original) amphetamine aspartate 2.5 mg / amphetamine sulfate 2.5 mg / dextroamphetamine saccharate 2.5 mg / dextroamphetamine sulfate 2.5 mg oral tablet (1 source) Central Nervous System Stimulant take 1 tablet by mouth every twelve hours Adderall 10 MG 1 tablet Orally Twice a day Active Continuous Glucose Collection Specialist (Dexcom G7 Collection Specialist) device (5 sources) Start: 04-10-2024 Continuous Glucose Collection Specialist (Dexcom G7 Collection Specialist) device Indications: History of gestational diabetes 1 each every 14 (fourteen) days 1 each 04/10/2024 Active Continuous Glucose Sensor (Dexcom G7 Sensor) misc (5 sources) Start: 04-10-2024 Continuous Glucose Sensor (Dexcom G7 Sensor) misc Indications: History of gestational diabetes 1 each every 14 (fourteen) days 2 each 11 04/10/2024 Active ergocalciferol 1.25 mg oral capsule (15 sources) Provitamin D2 Compound Start: 02-14-2023 End: 02-14-2024 take 1 capsule by mouth every week ergocalciferol (Vitamin D2) 1.25 MG (54059 UT) capsule Indications: Vitamin D deficiency Take 1 capsule (1.25 mg) by mouth 1 (one) time per week. 14 capsule 3 02/14/2023 02/14/2024 Active Folic Acid (2 sources) take 1 tablet by mouth once daily Folic Acid (FOLATE PO) Take 1 tablet by mouth Daily Active ibuprofen 400 mg oral tablet (1 source) Nonsteroidal Anti-inflammatory Drug take 1 tablet by mouth three times daily at mealtime as needed Ibuprofen 400 MG 1 tablet with food or milk as needed Orally Three times a day Active Iron (2 sources) take 1 tablet by mouth in the morning IRON CR PO Take 1 tablet by mouth in the morning and 1 tablet before bedtime. Active lisdexamfetamine dimesylate 50 mg oral capsule (1 source) Central Nervous System Stimulant take 1 capsule by mouth every twenty-four hours Vyvanse 50 MG 1 capsule in the morning Orally Once a day Active Probiotic Product (PROBIOTIC DAILY PO) (2 sources) take 2 capsules by mouth once daily Probiotic Product (PROBIOTIC DAILY PO) Take 2 capsules by mouth Daily Pre and Probiotic with Cranberry Active Vitamin D-Vitamin K (VITAMIN K2-VITAMIN D3 PO) (2 sources) take 2 drop(s) by mouth once daily Vitamin D-Vitamin K (VITAMIN K2-VITAMIN D3 PO) Take 2 drops by mouth Daily Active Completed/Discontinued Medications Medication Drug Class(es) Dates Sig (Normalized) Sig (Original) amoxicillin 500 mg oral tablet (5 sources) Penicillin-class Antibacterial Start: 04-09-2024 End: 04-21-2024 take 1 tablet by mouth in the [...] this for 7 days. 21 tablet 04/09/2024 04/21/2024 Discontinued (Therapy completed) Continuous Glucose Collection Specialist (FreeStyle Adriana 2 Reeders) device (20 sources) Start: 11-15-2023 End: 04-10-2024 Continuous Glucose Collection Specialist (FreeStyle Adriana 2 Reeders) device Indications: History of gestational diabetes 1 Device in the morning and 1 Device at noon and 1 Device in the evening and 1 Device before bedtime. 1 each 11/15/2023 04/10/2024 Discontinued Start: 11-15-2023 Continuous Glu cose Collection Specialist (FreeStyle Adriana 2 Reeders) device Indications: History of gestational diabetes 1 Device in the morning and 1 Device at noon and 1 Device in the evening and 1 Device before bedtime. 1 each 11/15/2023 Active Continuous Glucose Sensor (FreeStyle Adriana 2 Plus Sensor) [facility] [place] (8 sources) Start: 03-25-2024 End: 04-10-2024 Continuous Glucose Sensor (FreeStyle Adriana 2 Plus Sensor) [facility] [place] Indications: History of gestational diabetes 1 Units every 14 (fourteen) days 2 each 3 03/25/2024 04/10/2024 Discontinued Start: 03-25-2024 End: 04-24-2024 Continuous Glucose Sensor (F reeStyle Adriana 2 Plus Sensor) [facility] [place] Indications: History of gestational diabetes 1 Units every 14 (fourteen) days 2 each 3 03/25/2024 04/24/2024 Active Start: 03-10-2024 End: 03-24-2024 Continuous Glucose Sensor (F reeStyle Adriana 2 Plus Sensor) [facility] [place] Indications: History of gestational diabetes 1 Units every 14 (fourteen) days 2 each 3 03/10/2024 03/24/2024 Discontinued (Reorder) Start: 03-10-2024 End: 04-09-2024 Continuous Glucose Sensor (F reeStyle Adriana 2 Plus Sensor) [facility] [place] Indications: History of gestational diabetes 1 Units every 14 (fourteen) days 2 each 3 03/10/2024 04/09/2024 Active Continuous Glucose Sensor [place] (6 sources) Start: 12-13-2023 End: 01-12-2024 Continuous [...] mouth Daily 30 capsule 6 03/10/2024 04/09/2024 MV-Min-Fe Fum-FA-DHA ( 1 PO) (20 sources) End: 04-21-2024 MV-Min-Fe Fum-FA-DHA ( 1 PO) Take by mouth. 04/21/2024 Discontinued (Therapy completed) MV-Min- Fe Fum-FA-DHA ( 1 PO) Take by mouth. Active saccharomyces boulardii 250 mg oral capsule (20 sources) End: 04-21-2024 take 1 capsule by mouth in the morning saccharomyces boulardii (Florastor) 250 MG capsule Take 250 mg by mouth in the morning and 250 mg before bedtime. 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 [...] elbow Onset: 03-01-2021 Resolved: 03-01-2021 Chronic Other screening for suspected conditions (not mental disorders or infectious disease) (13 sources) Encounter for other screening for genetic [...] of ] 12-13-2023 Episodic Residual codes; unclassified (2 sources) Gestation period, 36 weeks; Translations: [36 weeks gestation of ] 04-09-2024 Episodic Residual codes; unclassified (2 sources) Gestation period, 37 weeks; Translations: [37 weeks gestation of ] 04-17-2024 Episodic Unclassified (2 sources) LOW BACK PAIN, [...] routine healing] Onset: 03-01-2021 Resolved: 03-01-2021 Episodic Menstrual disorders (20 sources) Irregular menstruation, unspecified; Translations: [Excessive and frequent menstruation with regular cycle] Onset: 10-15-2021 Resolved: 04-14-2024 Chronic Nonmalignant breast conditions (20 sources) Large breast; Translations: [Hypertrophy of breast] Onset: 09-15-2022 Resolved: 04-14-2024 09-15-2022 Episodic Other complications of (1 source) Unspecified infection of urinary tract in , first trimester; Translations: [UNS INF URINARY TRACT PREG 1ST TRI] Onset: 02-02-2022 Episodic Other complications of (1 source) Other specified related conditions, first trimester; Translations: [OTH SPEC PREG RELATED COND 1ST TRI] Onset: 02-02-2022 Episodic Other non-traumatic joint disorders (1 source) Pain in left elbow Onset: 03-01-2021 Resolved: 12-14-2021 Episodic Other and delivery including normal (20 sources) Encounter for supervision of other normal , first trimester; Translations: [Encounter for supervision of normal , unspecified, first trimester] Onset: 03-04-2022 Resolved: 04-14-2024 Episodic Residual codes; unclassified (1 source) Less than 8 weeks gestation of ; Translations: [< 8 WEEKS GESTATION ] Onset: 02-02-2022 Episodic Residual codes; unclassified (20 sources) Gestation period, 23 weeks; Translations: [23 weeks gestation of ] Onset: 01-10-2024 Resolved: 04-14-2024 01-10-2024 Episodic Residual codes; unclassified (20 sources) H/O: miscarriage; Translations: [Personal history of other complications of , childbirth and the puerperium] Onset: 06-22-2023 06-22-2023 Episodic Residual codes; unclassified (17 sources) Gestation period, 32 weeks; Translations: [32 weeks gestation of ] Onset: 03-10-2024 Resolved: 04-14-2024 03-10-2024 Episodic Residual codes; unclassified (13 sources) Gestation period, 34 weeks; Translations: [34 weeks gestation of ] Onset: 03-25-2024 Resolved: 04-14-2024 03-25-2024 Episodic Screening and history of mental health [...] Test Name Value Interpretation Reference Range Facility US OB FOLLOW UP TRANSABDOMIN AL APPROACHon 04-17-2024 US OB FOLLOW UP TRANSABDOMINAL APPROACH TITLE OF EXAM: OB Ultrasound: REASON FOR EXAM: Inconsistent size. COMPARISON: None TECHNIQUE: Grayscale and M-mode Doppler imaging is performed. FINDINGS: heart rate: 147 bpm GALINA: 11.1 cm (7.4-24.0) BPD: 9.4 cm HC: 35.0 cm AC: 35.0 cm FL: 7.4 cm GA for sonogram: 38.6 wk (36.3-40.9) [place] MIL: 05/03/2024 Weight Estimate: Weight: 3599 gm (7 lbs, 14 oz (1453-8118 gm) [place] Normal: 3177 gm (9264-1451 gm) [place] Wt%: 85% for 37.7 wks Limited for: Growth Presentation: Cephalic Amniotic Fluid: 11.1 cm Between 5th and 95 percentile. Largest Fluid Pocket: 4.4 cm Heart Rate: 147 bpm Somatic motion: Yes AUA: 39 w 0 d MIL: 04/24/2024 LMP: 37 w 5 d MIL: 05/03/2024 IMPRESSION: 1. Single living intrauterine gestation. Cephalic position. AUA based on today's ultrasound 39 weeks 0 days. Gestational age LMP 37 weeks 5 days. 85th percentile for weight. Normal growth. 2. Limited examination. *This report is generated using voice recognition reporting ([employer]). On occasion [employer] erroneously drops words from the report or replaces the spoken word with similar sounding words. Please call with any questions/concerns regarding this report.* Dictated and transcribed 04/17/24/dpd This report has been electronically signed and approved by the interpreting radiologist. Normal Not Available Comment on above: Order Comment: US OB SCAN FOR GROWTH Estimated Date of Delivery: 05/03/24 Gestational Age as of 04/09/2024: 36w4d Urinalysis macro (dipstick) panel (U)on 04-17-2024 Bilirubin, UA Negative Negative - 4(70) +++ mg/dL [facility] Blood, UA Negative Negative - 50 Andrew/mcL [facility] Clarity, UA Clear [facility] Color, UA Yellow [facility] Glucose, UA Negative Negative - 2000(110) ++++ mg/dL [facility] Interpretation and review of laboratory results Abnormal [facility] Ketones, UA Negative Negative - 160(16) ++++ mg/dL [facility] Leukocytes, UA Trace Negative - 500+++ Lore/mcL [facility] Nitrite, UA Negative Negative - Positive [facility] pH, UA 6 5 - 9 [facility] Protein, UA Trace Negative - 2000(20) ++++ mg/dL [facility] Spec Grav, UA 1.03 1 - 1.03 [facility] Urobilinogen, UA 1.0 0.2 - 12 mg/dL [facility] ALL MISCELLANEOUS TESTon MISCELLANEOUS TEST COMMENT . [facility] Comment on above: Test Ordered: [id number] Strep Gp B Culture+Rflx Strep Gp B Culture+Rflx Negative CB Reference Range: Negative Centers for Disease Control and Prevention (CDC) and [place] [employer]etric[employer] and Gynec[employer] (ACOG) guidelines [...] resistance to clindamycin is noted. Performed at: [facility] [id number] Cash Applications Manager: Carlos Manuel Bray PhD, Phone: [phone] GROUP BE STREP [id number] Group B Streptococcus Colonization Detection Culture With Re [facility] Urinalysis macro (dipstick) panel (U)on 03-25-2024 Bilirubin, UA Negative Negative - 4(70) +++ mg/dL [facility] Blood, UA Negative Negative - 50 Andrew/mcL [facility] Clarity, UA Clear [facility] Color, UA Yellow [facility] Glucose, UA Negative Negative - 2000(110) ++++ mg/dL [facility] Interpretation and review of laboratory results Abnormal [facility] Ketones, UA Positive Negative - 160(16) ++++ mg/dL [facility] Comment on above: trace Leukocytes, UA Trace Negative - 500+++ Lore/mcL [facility] Nitrite, UA Negative Negative - Positive [facility] pH, UA 6.5 5 - 9 [facility] Protein, UA Positive Negative - 2000(20) ++++ mg/dL [facility] Comment on above: 30mg Spec Grav, UA 1.025 1 - 1.03 [facility] Urobilinogen, UA 1.0 0.2 - 12 mg/dL [facility] Urinalysis macro (dipstick) panel (U)on 03-10-2024 Bilirubin, UA Positive Negative - 4(70) +++ mg/dL [facility] Comment on above: small Blood, UA Negative Negative - 50 Andrew/mcL [facility] Clarity, UA Clear [facility] Color, UA Yellow [facility] Glucose, UA Negative Negative - 1999(110) ++++ mg/dL [facility] Interpretation and review of laboratory results Abnormal [facility] Ketones, UA Positive Negative - 160(16) ++++ mg/dL [facility] Comment on above: trace Leukocytes, UA Negative Negative - 500+++ Lore/mcL [facility] Nitrite, UA Negative Negative - Positive [facility] pH, UA 6 5 - 9 [facility] Protein, UA Positive Negative - 1999(20) ++++ mg/dL [facility] Comment on above: 30 Spec Grav, UA 1.025 1 - 1.03 [facility] Urobilinogen, UA 1.0 0.2 - 12 mg/dL [facility] MLR HEMOGLOBIN A1Con 024 Glucose [Mass/Vol] 114 mg/dL [facility] HbA1c (Bld) [Mass fraction] 5.6 % 4.5 - 6.2 % [facility] Comment on above: ADA RECOMMENDED LIMI T 4.0 - 6.0 ADA THERAPEUTIC TARGET < 7.0 ACTION SUGGESTED > 7.[address] [facility] Urinalysis macro (dipstick) panel (U)on 02-20-2024 Bilirubin, UA Positive Negative - 4(70) +++ mg/dL [facility] Comment on above: small Blood, UA Negative Negative - 50 Andrew/mcL [facility] Clarity, UA Clear [facility] Color, UA Yellow [facility] Glucose, UA Negative Negative - 1999(110) ++++ mg/dL [facility] Interpretation and review of laboratory results Abnormal [facility] Ketones, UA Positive Negative - 160(16) ++++ mg/dL [facility] Comment on above: trace Leukocytes, UA Negative Negative - 500+++ Lore/mcL [facility] Nitrite, UA Negative Negative - Positive [facility] pH, UA 6 5 - 9 [facility] Protein, UA Trace Negative - 1999(20) ++++ mg/dL [facility] Spec Grav, UA 1.03 1 - 1.03 [facility] Urobilinogen, UA 1.0 0.2 - 12 mg/dL [facility] Urinalysis macro (dipstick) panel (U)on 01-10-2024 Bilirubin, UA Negative Negative - 4(70) +++ mg/dL [facility] Blood, UA Negative Negative - 50 Andrew/mcL [facility] Clarity, UA Clear [facility] Color, UA Yellow [facility] Glucose, UA Negative Negative - 1999(110) ++++ mg/dL [facility] Interpretation and review of laboratory results Normal [facility] Ketones, UA Negative Negative - 160(16) ++++ mg/dL [facility] Leukocytes, UA Negative Negative - 500+++ Lore/mcL [facility] Nitrite, UA Negative Negative - Positive [facility] pH, UA 5.5 5 - 9 [facility] Protein, UA Negative Negative - 1999(20) ++++ mg/dL [facility] Spec Grav, UA 1.02 1 - 1.03 [facility] Urobilinogen, UA 1.0 0.2 - 12 mg/dL [facility] URETHRITIS/DISCHARGE PLUS VA GINITIS (HTRX)on 12-14-[address] [facility] ATOPOBIUM VAGINAE Not detected [facility] BVAB 2,3 (BACTERIAL VAGINOSIS ASSOCIATED BACTERIA 2, 3); MOBILUNCUS SPP 26.[address] [facility] BVAB 2,3 (BACTERIAL VAGINOSIS ASSOCIATED BACTERIA 2, 3); MOBILUNCUS SPP Detected Abnormal [facility] SANJIV ALBICANS, PARAPSILOSIS, TROPICALIS 0.000 [facility] SANJIV ALBICANS, PARAPSILOSIS, TROPICALIS Not detected [facility] SANJIV GLABRATA 0.000 [facility] SANJIV GLABRATA Not detected [facility] SANJIV KRUSEI 0.000 [facility] SANJIV KRUSEI Not detected [facility] CHLAMYDIA TRACHOMATIS 0.000 [facility] CHLAMYDIA TRACHOMATIS Not detected [facility] GARDNERELLA VAGINALIS 0.000 [facility] GARDNERELLA VAGINALIS Not detected [facility] Interpretation and review of laboratory results Abnormal [facility] MEGASPHAERA (TYPES 1, 2) 0.000 [facility] MEGASPHAERA (TYPES 1, 2) Not detected [facility] MYCOPLASMA GENITALIUM 0.000 [facility] MYCOPLASMA GENITALIUM Not detected [facility] NEISSERIA GONORRHOEAE 0.000 [facility] NEISSERIA GONORRHOEAE Not detected [facility] TRICHOMONAS VAGINALIS 0.000 [facility] TRICHOMONAS VAGINALIS Not detected [facility] Urinalysis macro (dipstick) panel (U)on 12-13-2023 Bilirubin, UA Negative Negative - 4(70) +++ mg/dL [facility] Blood, UA Negative Negative - 50 Andrew/mcL [facility] Clarity, UA Clear [facility] Color, UA Yellow [facility] Glucose, UA Negative Negative - 1999(110) ++++ mg/dL [facility] Interpretation and review of laboratory results Abnormal [facility] Ketones, UA Positive Negative - 160(16) ++++ mg/dL [facility] Comment on above: trace Leukocytes, UA Negative Negative - 500+++ Lore/mcL [facility] Nitrite, UA Negative Negative - Positive [facility] pH, UA 6.5 5 - 9 [facility] Protein, UA Negative Negative - 1999(20) ++++ mg/dL [facility] Spec Grav, UA 1.025 1 - 1.03 [facility] Urobilinogen, UA 1.0 0.2 - 12 mg/dL [facility] Urinalysis macro (dipstick) panel (U)on 11-15-2023 Bilirubin, UA Negative Negative - 4(70) +++ mg/dL [facility] Blood, UA Negative Negative - 50 Andrew/mcL [facility] Clarity, UA Clear [facility] Color, UA Yellow [facility] Glucose, UA Negative Negative - 1999(110) ++++ mg/dL [facility] Interpretation and review of laboratory results Normal [facility] Ketones, UA Negative Negative - 160(16) ++++ mg/dL [facility] Leukocytes, UA Negative Negative - 500+++ Lore/mcL [facility] Nitrite, UA Negative Negative - Positive [facility] pH, UA 5.5 5 - 9 [facility] Protein, UA Negative Negative - 1999(20) ++++ mg/dL [facility] Spec Grav, UA 1.020 1 - 1.03 [facility] Urobilinogen, UA 1.0 0.2 - 12 mg/dL [facility] ALL CBC WITH AUTO DIFFon BASOPHILS ABSOLUTE AUTO 0.0 [facility] Basophils/100 WBC (Bld) 0.4 % 0.2 - 2.0 % [facility] Eosinophils/100 WBC (Bld) 3.0 % 0.9 - 7.0 % [facility] Erythrocyte distribution width (RBC) [Ratio] 16.1 % High 11.0 - 15.0 % [facility] Hematocrit (Bld) [Volume fraction] 36.3 % 36.0 - 48.0 % [facility] Hemoglobin (Bld) [Mass/Vol] 11.4 g/dL Low 12.0 - 16.0 g/dL [facility] IMMATURE GRANULOCYTES ABS AUTO 0.03 [facility] Immature granulocytes/100 WBC (Bld) 0.3 % 0.0 - 0.5 % [facility] Interpretation and review of laboratory results Abnormal [facility] LYMPHOCYTES ABSOLUTE AUTO 2.2 [facility] Lymphocytes/100 WBC (Bld) 23.6 % 20.5 - 60.0 % [facility] MCH (RBC) [Entitic mass] 26.0 pg Low 26.7 - 34.[address] [facility] MCHC (RBC) [Mass/Vol] 31.4 g/dL 29.9 - 35.2 g/dL [facility] MCV (RBC) [Entitic vol] 82.9 fL 81.0 - 99.[address] [facility] MONOCYTES ABSOLUTE AUTO 0.5 [facility] Monocytes/100 WBC (Bld) 5.1 % 1.7 - 12.0 % [facility] NEUTROPHILS ABSOLUTE AUTO 6.2 [facility] Neutrophils/100 WBC (Bld) 67.6 % 43.0 - 75.0 % [facility] Platelet mean volume (Bld) [Entitic vol] 11.0 fL 9.5 - 13.[address] [facility] TBH EO # 0.3 [facility] PLT 271 [facility] RBC 4.38 [facility] WBC 9.2 [facility] Cytology Cervical or vaginal smear or scraping studyon 03-08-2023 [facility] CHLAMYDIA/GONOCOCCUS JESE (SW AB/URINE/PAPon 06-01-2022 Chlamydia trachomatis, JESE Negative Normal Negative [facility] Comment on above: Performed By: #### P TT, PT #### [facility] [address] [address] [address] Todd Moreno Neisseria gonorrhoeae, JESE Negative Normal Negative [facility] Comment on above: Performed By: #### P TT, PT #### [facility] [address] [place] [address] Dr. Todd Moreno VAGINITIS/VAGINOSIS DNA PROB Shaheed 06-01-2022 Sanjiv species Negative Normal Negative [facility] Comment on above: Performed By: #### P TT, PT #### [facility] [address] [place] [address] Dr. Todd Moreno Gardnerella vaginalis Negative Normal Negative [facility] Comment on above: Performed By: #### P TT, PT #### [facility] [address] [place] [address] Dr. Todd Moreno Trichomonas vaginalis Negative Normal Negative [facility] Comment on above: Performed By: #### P TT, PT #### [facility] [address] [place] [address] Dr. Todd Moreno HEP B SURFACE ANTIGEN SCREEN on 03-22-2022 HBsAg Screen Negative Normal Negative [facility] Comment on above: Performed By: #### H BSANS #### [facility] [address] [place] [address] Dr. Todd Moreno HEPATITIS C VIRUS AB W/ REFL EX QUANTon 03-22-2022 HCV AB 0.1 s/co ratio Normal 0.0-0.9 [facility] Comment on above: Performed By: #### P TT, PT #### [facility] [address] [place] [address] Dr. Todd Moreno Interpretation: Comment Normal [facility] Comment on above: Result Comment: Nega tive Not infected with HCV, unless recent infection is suspected or other evidence exists to indicate HCV infection. Performed By: #### P TT, PT #### [facility] [address] [place] [address] Dr. Todd Moreno HIV 1 AND 2 WITH REFLEXon HIV Screen 4th Generation wRfx Non-Reactive Normal Non Reactive [facility] [facility] Comment on above: Result Comment: HIV Negative HIV-1/HIV-2 antibodies and HIV-1 p24 antigen were NOT detected. There is no laboratory evidence of HIV infection. Performed By: #### H IV12 #### [facility] [address] [place] [address] Dr. Todd Moreno RPR QUANTon 03-22-2022 Rapid Plasma Reagin, Quant Non-Reactive Normal NonRea<1:1 [facility] Comment on above: Result Comment: Plea se Note: This test does not meet current guidelines for screening and diagnosis of syphilis. This test is intended for following treatment response in patients being treated for syphilis infection. To screen for syphilis infection, a reflex cascade that includes both RPR and a treponema-specific assay should be utilized, such as Treponema pallidum (Syphilis) Screening [place] (243792) or Rapid Plasma Reagin (RPR) Test With Reflex to Quantitative RPR and Confirmatory Treponema pallidum Antibodies ([id number]). Performed By: #### R PRQ #### [facility] [address] [place] [address] Dr. Todd Moreno RUBELLA AB IGGon 03-22-2022 Rubella Antibodies, IgG 5.11 index Normal Immune >0.99 [facility] Comment on above: Result Comment: Non- immune <0.90 Equivocal 0.90 - 0.99 Immune >0.99 Performed By: #### R PRQ #### [facility] [address] [place] [address] Dr. Todd Moreno CBC AUTO DIFFon 03-20-2022 BASO # 0.0 103/ul Normal 0.0-0.1 [facility] Comment on above: Performed By: #### P TT, PT #### [facility] [address] [place] [address] Dr. Todd Moreno Basophils/100 WBC (Bld) 0.3 % Normal 0.2-2.0 [facility] Comment on above: Performed By: #### P TT, PT #### [facility] [address] [place] [address] Dr. Todd Moreno EO # 0.1 103/ul Normal 0.0-0.7 [facility] Comment on above: Performed By: #### P TT, PT #### [facility] [address] [place] [address] Dr. Todd Moreno Eosinophils/100 WBC (Bld) 1.0 % Normal 0.9-7.0 [facility] Comment on above: Performed By: #### P TT, PT #### [facility] [address] [place] [address] Dr. Todd Moreno Erythrocyte distribution width (RBC) [Ratio] 14.4 % Normal 11.0-15.0 [facility] Comment on above: Performed By: #### P TT, PT #### [facility] [address] [place] [address] Dr. Todd Moreno Hematocrit (Bld) [Volume fraction] 38.2 % Normal 36.0-48.0 [facility] Comment on above: Performed By: #### P TT, PT #### [facility] [address] [place] [address] Dr. Todd Moreno Hemoglobin (Bld) [Mass/Vol] 12.2 g/dL Normal 12.0-16.0 [facility] Comment on above: Performed By: #### P TT, PT #### [facility] [address] [place] [address] Dr. Todd Moreno IG # 0.03 10e3/ul Normal 0.00-0.03 [facility] Comment on above: Performed By: #### P TT, PT #### [facility] [address] [place] [address] Dr. Todd Moreno IG % 0.3 % Normal 0.0-0.5 [facility] Comment on above: Performed By: #### P TT, PT #### [facility] [address] [place] [address] Dr. Todd Moreno LYMPH # 1.9 103/ul Normal 1.2-3.8 [facility] Comment on above: Performed By: #### P TT, PT #### [facility] [address] [place] [address] Dr. Todd Moreno Lymphocytes/100 WBC (Bld) 19.0 % Critically low 20.5-60.0 [facility] Comment on above: Performed By: #### P TT, PT #### [facility] [address] [place] [address] Dr. Todd Moreno MANUAL DIFF REQ NO Normal [facility] Comment on above: Performed By: #### P TT, PT #### [facility] [address] [place] [address] Dr. Todd Moreno MCH (RBC) [Entitic mass] 26.1 pg Critically low 26.7-34.0 [facility] Comment on above: Performed By: #### P TT, PT #### [facility] [address] [place] [address] Dr. Todd Moreno MCHC (RBC) [Mass/Vol] 31.9 g/dL Normal 29.9-35.2 [facility] Comment on above: Performed By: #### P TT, PT #### [facility] [address] [place] [address] Dr. Todd Moreno MCV (RBC) [Entitic vol] 81.6 fL Normal 81.0-99.0 [facility] Comment on above: Performed By: #### P TT, PT #### [facility] [address] [place] [address] Dr. Todd Moreno MONO # 0.4 103/ul Normal 0.3-0.8 [facility] Comment on above: Performed By: #### P TT, PT #### [facility] [address] [place] [address] Dr. Todd Moreno Monocytes/100 WBC (Bld) 4.4 % Normal 1.7-12.0 [facility] Comment on above: Performed By: #### P TT, PT #### [facility] [address] [place] [address] Dr. Todd Moreno NEUT # 7.5 103/ul Critically high 1.4-6.5 [facility] Comment on above: Performed By: #### P TT, PT #### [facility] [address] [place] [address] Dr. Todd Moreno Neutrophils/100 WBC (Bld) 75.0 % Normal 43.0-75.0 [facility] Comment on above: Performed By: #### P TT, PT #### [facility] [address] [address] [address] Todd Moreno Platelet mean volume (Bld) [Entitic vol] 10.4 fL Normal 9.5-13.5 [facility] Comment on above: Performed By: #### P TT, PT #### [facility] [address] [place] [address] Dr. Todd Moreno PLT 302 103/ul Normal 150-450 [facility] Comment on above: Performed By: #### P TT, PT #### [facility] [address] [place] [address] Dr. Todd Moreno RBC 4.68 106/ul Normal 4.20-5.40 [facility] Comment on above: Performed By: #### P TT, PT #### [facility] [address] [place] [address] Dr. Todd Moreno WBC 10.1 103/ul Normal 4.0-11.0 [facility] Comment on above: Performed By: #### P TT, PT #### [facility] [address] [place] [address] Dr. Todd Moreno CULTURE URINEon 03-20-2022 CULTURE URINE Culture Observations : MODERATE GROWTH OF MIXED GENITAL LORA. NO POTENTIAL PATHOGENS SEEN. Normal [facility] Comment on above: Performed By: #### P TT, PT #### [facility] [address] [place] [address] Dr. Todd Moreno GLYCOHEMOGLOBIN A1Con 2022 ADA RECOMMENDATION SEE BELOW Normal [facility] Comment on above: Result Comment: ADA RECOMMENDED LIMIT 4.0 - 6.0 ADA THERAPEUTIC TARGET < 7.0 ACTION SUGGESTED > 7.0 Performed By: #### A 1C #### [facility] [address] [place] [address] Dr. Todd Moreno Glucose [Mass/Vol] 105 mg/dL Normal [facility] Comment on above: Performed By: #### A 1C #### [facility] [address] [place] [address] [id number] [address] Todd Moreno HbA1c (Bld) [Mass fraction] 5.3 % Normal 4.5-6.2 [facility] Comment on above: Performed By: #### A 1C #### [facility] [address] [place] [address] Dr. Tdod Moreno BENJAMIN BOX TEST PT SEND OUTo n 03-20-2022 SENT TO REF LAB 03/20/2022 Normal [facility] Comment on above: Performed By: #### P TT, PT #### [facility] [address] [place] [address] Dr. Todd Moreno TYPE AND SCREENon 03-20-2022 TYPE AND SCREEN Negative Normal [facility] Comment on above: Performed By: #### P TT, PT #### [facility] [address] [place] [address] Dr. Todd Moreno US PREG TVon 02-24-2022 [...] CARIDAD DOBSON Date: 2022-02-24 16:16 Normal [facility] CULTURE URINEon 02-03-2022 CULTURE URINE [...] F Oxacillin 0.5 S F Normal [facility] Comment on above: Performed By: #### P TT, PT #### [facility] [address] [address] [address] Todd Moreno US PREG TVon 02-01-2022 [...] ETHAN MERCER Date: 2022-01-31 22:05 Normal [facility] CBC AUTO DIFFon 01-31-2022 BASO # 0.1 103/ul Normal 0.0-0.1 [facility] Comment on above: Performed By: #### P TT, PT #### [facility] [address] [place] [address] Dr. Todd Moreno Basophils/100 WBC (Bld) 0.8 % Normal 0.2-2.0 [facility] Comment on above: Performed By: #### P TT, PT #### [facility] [address] [place] [address] Dr. Todd Moreno EO # 0.5 103/ul Normal 0.0-0.7 [facility] Comment on above: Performed By: #### P TT, PT #### [facility] [address] [place] [address] Dr. Todd Moreno Eosinophils/100 WBC (Bld) 5.4 % Normal 0.9-7.0 [facility] Comment on above: Performed By: #### P TT, PT #### [facility] [address] [place] [address] Dr. Todd Moreno Erythrocyte distribution width (RBC) [Ratio] 15.0 % Normal 11.0-15.0 [facility] Comment on above: Performed By: #### P TT, PT #### [facility] [address] [place] [address] Dr. Todd Moreno Hematocrit (Bld) [Volume fraction] 34.3 % Critically low 36.0-48.0 [facility] Comment on above: Performed By: #### P TT, PT #### [facility] [address] [place] [address] Dr. Todd Moerno Hemoglobin (Bld) [Mass/Vol] 11.2 g/dL Critically low 12.0-16.0 [facility] Comment on above: Performed By: #### P TT, PT #### [facility] [address] [place] [address] Dr. Todd Moreno IG # 0.02 10e3/ul Normal 0.00-0.03 [facility] Comment on above: Performed By: #### P TT, PT #### [facility] [address] [address] [address] Todd Moreno IG % 0.2 % Normal 0.0-0.5 [facility] Comment on above: Performed By: #### P TT, PT #### [facility] [address] [address] [address] Todd Moreno LYMPH # 2.7 103/ul Normal 1.2-3.8 [facility] Comment on above: Performed By: #### P TT, PT #### [facility] [address] [place] [address] Dr. Todd Moreno Lymphocytes/100 WBC (Bld) 29.9 % Normal 20.5-60.0 [facility] Comment on above: Performed By: #### P TT, PT #### [facility] [address] [place] [address] Dr. Todd Moreno MANUAL DIFF REQ NO Normal [facility] Comment on above: Performed By: #### P TT, PT #### [facility] [address] [place] [address] Dr. Todd Moreno MCH (RBC) [Entitic mass] 26.7 pg Normal 26.7-34.0 [facility] Comment on above: Performed By: #### P TT, PT #### [facility] [address] [place] [address] Dr. Todd Moreno MCHC (RBC) [Mass/Vol] 32.7 g/dL Normal 29.9-35.2 [facility] Comment on above: Performed By: #### P TT, PT #### [facility] [address] [place] [address] Dr. Todd Moreno MCV (RBC) [Entitic vol] 81.7 fL Normal 81.0-99.0 [facility] Comment on above: Performed By: #### P TT, PT #### [facility] [address] [place] [address] Dr. Todd Moreno MONO # 0.5 103/ul Normal 0.3-0.8 [facility] Comment on above: Performed By: #### P TT, PT #### [facility] [address] [place] [address] Dr. Todd Moreno Monocytes/100 WBC (Bld) 5.7 % Normal 1.7-12.0 [facility] Comment on above: Performed By: #### P TT, PT #### [facility] [address] [place] [address] Dr. Todd Moreno NEUT # 5.2 103/ul Normal 1.4-6.5 [facility] Comment on above: Performed By: #### P TT, PT #### [facility] [address] [place] [address] Dr. Todd Moreno Neutrophils/100 WBC (Bld) 58.0 % Normal 43.0-75.0 [facility] Comment on above: Performed By: #### P TT, PT #### [facility] [address] [place] [address] Dr. Todd Moreno Platelet mean volume (Bld) [Entitic vol] 10.4 fL Normal 9.5-13.5 [facility] Comment on above: Performed By: #### P TT, PT #### [facility] [address] [place] [address] Dr. Todd Moreno PLT 270 103/ul Normal 150-450 [facility] Comment on above: Performed By: #### P TT, PT #### [facility] [address] [place] [address] Dr. Todd Moreno RBC 4.20 106/ul Normal 4.20-5.40 [facility] Comment on above: Performed By: #### P TT, PT #### [facility] [address] [place] [address] Dr. Todd Moreno WBC 9.1 103/ul Normal 4.0-11.0 [facility] Comment on above: Performed By: #### P TT, PT #### [facility] [address] [place] [address] Dr. Todd Moreno ER URINE PROFILEon 2 Bilirubin Ql (U) Negative Normal NEGATIVE [facility] Comment on above: Performed By: #### P TT, PT #### [facility] [address] [place] [address] Dr. Todd Moreno Clarity (U) CLEAR Normal CLEAR [facility] Comment on above: Performed By: #### P TT, PT #### [facility] [address] [place] [address] Dr. Todd Moreno Color (U) YELLOW Normal YELLOW [facility] Comment on above: Performed By: #### P TT, PT #### [facility] [address] [place] [address] Dr. Todd SALINAS A micrscopic examination will be performed if indicated. Normal [facility] Comment on above: Performed By: #### P TT, PT #### [facility] [address] [place] [address] Dr. Todd Moreno Glucose Ql (U) Negative Normal NEGATIVE [facility] Comment on above: Performed By: #### P TT, PT #### [facility] [address] [place] [address] Dr. Todd Moreno Hemoglobin Ql (U) TRACE-INTACT Abnormal NEGATIVE [facility] Comment on above: Performed By: #### P TT, PT #### [facility] [address] [place] [address] Dr. Todd Moreno Ketones Ql (U) Negative Normal NEGATIVE [facility] Comment on above: Performed By: #### P TT, PT #### [facility] [address] [place] [address] Dr. Todd Moreno LEUKOCYTES SMALL Abnormal NEGATIVE [facility] Comment on above: Performed By: #### P TT, PT #### [facility] [address] [place] [address] Dr. Todd Moreno Nitrite Ql (U) Negative Normal NEGATIVE [facility] Comment on above: Performed By: #### P TT, PT #### [facility] [address] [place] [address] Dr. Todd Moreno pH (U) 6.5 [pH] Normal 5-9 [facility] Comment on above: Performed By: #### P TT, PT #### [facility] [address] [place] [address] Dr. Todd Moreno SPEC GRAVITY 1.015 Normal 1.005-<=1.025 [facility] Comment on above: Performed By: #### P TT, PT #### [facility] [address] [place] [address] Dr. Todd Moreno UA PROTEIN Negative Normal NEGATIVE/ TRACE [facility] Comment on above: Performed By: #### P TT, PT #### [facility] [address] [place] [address] Dr. Todd Moreno UR MICRO IND INDICATED Normal [facility] Comment on above: Performed By: #### P TT, PT #### [facility] [address] [place] [address] Dr. Todd Moreno Urobilinogen Qn (U) 0.2 {Tiffany'U}/dL Normal 0.2 - 1. 0 [facility] Comment on above: Performed By: #### P TT, PT #### [facility] [address] [place] [address] Dr. Todd Moreno LIPASEon 01-31-2022 Lipase [Catalytic activity/Vol] 123.0 U/L Normal 73.0-393.0 [facility] Comment on above: Performed By: #### C MP, LIPA #### [facility] [address] [place] [address] Dr. Todd Moreno PREG QUANT HCGon 01-31-2022 HCG QUANT 711 mIU/mL Normal [facility] Comment on above: Performed By: #### P TT, PT #### [facility] [address] [place] [address] Dr. Todd Moreno HCG RANGE SEE BELOW Normal [facility] Comment on above: Result Comment: 5-50 0.2-1 WEEK 50-500 1-2 WEEKS 100-5,000 2-3 WEEKS 500-10,000 3-4 WEEKS 1,000-50,000 4-5 WEEKS 10,000-100,000 5-6 WEEKS 15,000-200,000 6-8 WEEKS 10,000-100,000 2-3 MONTHS Performed By: #### P TT, PT #### [facility] [address] [place] [address] Dr. Todd Moreno PROF 14(COMP METB)on 022 Albumin [Mass/Vol] 3.7 g/dL Normal 3.4-5.0 [facility] Comment on above: Performed By: #### C MP, LIPA #### [facility] [address] [place] [address] Dr. Todd Moreno Albumin/Globulin [Mass ratio] 1.0 {ratio} Normal [facility] Comment on above: Performed By: #### C MP, LIPA #### [facility] [address] [place] [address] Dr. Todd Moreno ALP [Catalytic activity/Vol] 80 U/L Normal 46-116 [facility] Comment on above: Performed By: #### C MP, LIPA #### [facility] [address] [place] [address] Dr. Todd Moreno ALT [Catalytic activity/Vol] 23 U/L Normal 14-59 [facility] Comment on above: Performed By: #### C MP, LIPA #### [facility] [address] [place] [address] Dr. Todd Moreno Anion gap [Moles/Vol] 10.2 mmol/L Normal [facility] Comment on above: Performed By: #### C MP, LIPA #### [facility] [address] [place] [address] Dr. Todd Moreno AST [Catalytic activity/Vol] 14 U/L Critically low 15-37 [facility] Comment on above: Performed By: #### C MP, LIPA #### [facility] [address] [place] [address] Dr. Todd Moreno Bilirubin [Mass/Vol] 0.3 mg/dL Normal 0.2-1.0 [facility] Comment on above: Performed By: #### C MP, LIPA #### [facility] [address] [place] [address] Dr. Todd Moreno Calcium [Mass/Vol] 9.1 mg/dL Normal 8.5-10.1 [facility] Comment on above: Performed By: #### C MP, LIPA #### [facility] [address] [place] [address] Dr. Todd Moreno Chloride [Moles/Vol] 104 mmol/L Normal 98-107 [facility] Comment on above: Performed By: #### C MP, LIPA #### [facility] [address] [place] [address] Dr. Todd Moreno CO2 [Moles/Vol] 26.8 mmol/L Normal 21.0-32.0 [facility] Comment on above: Performed By: #### C MP, LIPA #### [facility] [address] [place] [address] Dr. Todd Moreno Creatinine [Mass/Vol] 0.87 mg/dL Normal 0.55-1.02 [facility] Comment on above: Performed By: #### C MP, LIPA #### [facility] [address] [place] [address] Dr. Todd Moreno EGFR-AF SAMMARINESE >60 Normal >=60 [facility] Comment on above: Performed By: #### C MP, LIPA #### [facility] [address] [place] [address] Dr. Todd Moreno EGFR-NON AF SAMMARINESE >60 Normal >=60 [facility] Comment on above: Performed By: #### C MP, LIPA #### [facility] [address] [place] [address] Dr. Todd Moreno Globulin (S) [Mass/Vol] 3.7 g/dL Normal [facility] Comment on above: Performed By: #### C MP, LIPA #### [facility] [address] [place] [address] Dr. Todd Moreno Glucose [Mass/Vol] 98 mg/dL Normal 74-106 [facility] Comment on above: Performed By: #### C MP, LIPA #### [facility] [address] [place] [address] Dr. Todd Moreno Potassium [Moles/Vol] 4.0 mmol/L Normal 3.5-5.1 [facility] Comment on above: Performed By: #### C MP, LIPA #### [facility] [address] [place] [address] Dr. Todd Moreno Protein [Mass/Vol] 7.4 g/dL Normal 6.4-8.2 [facility] Comment on above: Performed By: #### C MP, LIPA #### [facility] [address] [place] [address] Dr. Todd Moreno Sodium [Moles/Vol] 137 mmol/L Normal 136-145 [facility] Comment on above: Performed By: #### C MP, LIPA #### [facility] [address] [place] [address] Dr. Todd Moreno Urea nitrogen [Mass/Vol] 15.0 mg/dL Normal 7.0-18.0 [facility] Comment on above: Performed By: #### C MP, LIPA #### [facility] [address] [place] [address] Dr. Todd Moreno Urea nitrogen/Creatinine [Mass ratio] 17.2 mg/mg Normal [facility] Comment on above: Performed By: #### C MP, LIPA #### [facility] [address] [place] [address] Dr. Todd Moreno URINE MICROSCOPIC ONLYon BACTERIA SMALL Abnormal NONE SEEN [facility] Comment on above: Performed By: #### P TT, PT #### [facility] [address] [place] [address] Dr. Todd Moreno Bacteria identified Cx Nom (U) INDICATED Normal [facility] Comment on above: Performed By: #### P TT, PT #### [facility] [address] [place] [address] Dr. Todd Moreno CAST NONE SEEN Normal NONE SEEN [facility] Comment on above: Performed By: #### P TT, PT #### [facility] [address] [place] [address] Dr. Todd Moreno Crystals LM Nom (Urine sed) NONE SEEN Normal NONE SEEN [facility] Comment on above: Performed By: #### P TT, PT #### [facility] [address] [address] [address] Todd Moreno Epithelial cells LM Ql (Urine sed) FEW Abnormal NONE SEEN /RARE [facility] Comment on above: Performed By: #### P TT, PT #### [facility] [address] [address] [address] Todd Moreno MUCOUS NONE SEEN Normal NONE SEEN [facility] Comment on above: Performed By: #### P TT, PT #### [facility] [address] [address] [address] Todd Moreno RBC 0-2 Normal 0-2 [facility] Comment on above: Performed By: #### P TT, PT #### [facility] [address] [place] [address] Dr. Todd Moreno WBC 10-20 Abnormal NONE SEEN [facility] Comment on above: Performed By: #### P TT, PT #### [facility] [address] [place] [address] Dr. Todd Moreno ESTROGENon 10-20-2021 Estrogens, Total 68 pg/mL Normal [facility] Comment on above: Result Comment: Prep ubertal < 40 Female Cycle: 1-10 Days 16 - 328 11-20 Days 34 - 501 21-30 Days 48 - 350 Post-Menopausal 40 - 244 Performed By: #### P TT, PT #### [facility] [address] [place] [address] Dr. Todd Moreno ESTRADIOLon 10-16-2021 Estradiol 62.1 pg/mL Normal [facility] Comment on above: Result Comment: Adul t Female: Follicular phase 12.5 - 166.0 Ovulation phase 85.8 - 498.0 Luteal phase 43.8 - 211.0 Postmenopausal <6.0 - 54.7 1st trimester 215.0 - >4300.0 Ramos ECLIA methodology Performed By: #### E STRADI #### [facility] [address] [place] [address] Dr. Todd Moreno FSHon 10-16-2021 FSH 5.6 mIU/mL Normal [facility] Comment on above: Result Comment: Adul t Female: Follicular phase 3.5 - 12.5 Ovulation phase 4.7 - 21.5 Luteal phase 1.7 - 7.7 Postmenopausal 25.8 - 134.8 Performed By: #### P TT, PT #### [facility] [address] [place] [address] Dr. Todd Moreno LUTEINIZING HORMONE (LH)on 0 10-16-2021 LH 12.1 mIU/mL Normal [facility] Comment on above: Result Comment: Adul t Female: Follicular phase 2.4 - 12.6 Ovulation phase 14.0 - 95.6 Luteal phase 1.0 - 11.4 Postmenopausal 7.7 - 58.5 Performed By: #### P TT, PT #### [facility] [address] [place] [address] Dr. Todd Moreno CBC AUTO DIFFon 10-15-2021 BASO # 0.0 103/ul Normal 0.0-0.1 [facility] Comment on above: Performed By: #### P TT, PT #### [facility] [address] [place] [address] Dr. Todd Moreno Basophils/100 WBC (Bld) 0.6 % Normal 0.2-2.0 [facility] Comment on above: Performed By: #### P TT, PT #### [facility] [address] [place] [address] Dr. Todd Moreno EO # 0.1 103/ul Normal 0.0-0.7 [facility] Comment on above: Performed By: #### P TT, PT #### [facility] [address] [place] [address] Dr. Todd Moreno Eosinophils/100 WBC (Bld) 2.1 % Normal 0.9-7.0 [facility] Comment on above: Performed By: #### P TT, PT #### [facility] [address] [place] [address] Dr. Todd Moreno Erythrocyte distribution width (RBC) [Ratio] 14.0 % Normal 11.0-15.0 [facility] Comment on above: Performed By: #### P TT, PT #### [facility] [address] [place] [address] Dr. Todd Moreno Hematocrit (Bld) [Volume fraction] 37.0 % Normal 36.0-48.0 [facility] Comment on above: Performed By: #### P TT, PT #### [facility] [address] [place] [address] Dr. Todd Moreno Hemoglobin (Bld) [Mass/Vol] 11.6 g/dL Critically low 12.0-16.0 [facility] Comment on above: Performed By: #### P TT, PT #### [facility] [address] [place] [address] Dr. Todd Moreno IG # 0.01 10e3/ul Normal 0.00-0.03 [facility] Comment on above: Performed By: #### P TT, PT #### [facility] [address] [place] [address] Dr. Todd Moreno IG % 0.2 % Normal 0.0-0.5 [facility] Comment on above: Performed By: #### P TT, PT #### [facility] [address] [place] [address] Dr. Todd Moreno LYMPH # 2.2 103/ul Normal 1.2-3.8 [facility] Comment on above: Performed By: #### P TT, PT #### [facility] [address] [place] [address] Dr. Todd Moreno Lymphocytes/100 WBC (Bld) 33.1 % Normal 20.5-60.0 [facility] Comment on above: Performed By: #### P TT, PT #### [facility] [address] [place] [address] Dr. Todd Moreno MANUAL DIFF REQ NO Normal [facility] Comment on above: Performed By: #### P TT, PT #### [facility] [address] [place] [address] Dr. Todd Moreno MCH (RBC) [Entitic mass] 26.3 pg Critically low 26.7-34.0 [facility] Comment on above: Performed By: #### P TT, PT #### [facility] [address] [place] [address] Dr. Todd Moreno MCHC (RBC) [Mass/Vol] 31.4 g/dL Normal 29.9-35.2 [facility] Comment on above: Performed By: #### P TT, PT #### [facility] [address] [address] [address] Todd Moreno MCV (RBC) [Entitic vol] 83.9 fL Normal 81.0-99.0 [facility] Comment on above: Performed By: #### P TT, PT #### [facility] [address] [address] [address] Todd Moreno MONO # 0.2 103/ul Critically low 0.3-0.8 [facility] Comment on above: Performed By: #### P TT, PT #### [facility] [address] [address] [address] Todd Moreno Monocytes/100 WBC (Bld) 3.5 % Normal 1.7-12.0 [facility] Comment on above: Performed By: #### P TT, PT #### [facility] [address] [place] [address] Dr. Todd Moreno NEUT # 4.0 103/ul Normal 1.4-6.5 [facility] Comment on above: Performed By: #### P TT, PT #### [facility] [address] [place] [address] Dr. Todd Moreno Neutrophils/100 WBC (Bld) 60.5 % Normal 43.0-75.0 [facility] Comment on above: Performed By: #### P TT, PT #### [facility] [address] [address] [address] Todd Moreno Platelet mean volume (Bld) [Entitic vol] 10.6 fL Normal 9.5-13.5 [facility] Comment on above: Performed By: #### P TT, PT #### [facility] [address] [address] [address] Todd Moreno PLT 263 103/ul Normal 150-450 [facility] Comment on above: Performed By: #### P TT, PT #### [facility] [address] [place] [address] Dr. Todd Moreno RBC 4.41 106/ul Normal 4.20-5.40 [facility] Comment on above: Performed By: #### P TT, PT #### [facility] [address] [place] [address] Dr. Todd Moreno WBC 6.6 103/ul Normal 4.0-11.0 [facility] Comment on above: Performed By: #### P TT, PT #### [facility] [address] [place] [address] Dr. Todd Moreno FREE T4on 10-15-2021 Free T4 [Mass/Vol] 1.05 ng/dL Normal 0.76-1.46 [facility] Comment on above: Performed By: #### P TT, PT #### [facility] [address] [place] [address] Dr. Todd Moreno PROTIMEon 10-15-2021 INR Coag (PPP) [Relative time] 1.02 {INR} Normal [facility] Comment on above: Performed By: #### P TT, PT #### [facility] [address] [place] [address] Dr. Todd Moreno INR GUIDELINES SEE BELOW Normal [facility] Comment on above: Result Comment: RAMÓN RED INR: 2.0 - 3.0 CONDITIONS NOT LISTED BELOW 2.5 - 3.5 FOR PROSTHETIC HEART VALVE REPLACEMENT 2.5 - 3.5 RECURRENT THROMBOSIS Performed By: #### P TT, PT #### [facility] [address] [place] [address] Dr. Todd Moreno PT Coag (PPP) [Time] 11.0 s Normal 9.0-11.6 [facility] Comment on above: Performed By: #### P TT, PT #### [facility] [address] [place] [address] Dr. Todd Moreno PTTon 10-15-2021 aPTT Coag (Bld) [Time] 32.4 s Normal 22.3-36.2 [facility] Comment on above: Performed By: #### P TT, PT #### [facility] [address] [place] [address] Dr. Todd Moreno TSHon 10-15-2021 TSH 1.777 uIU/mL Normal 0.358-3.740 [facility] Comment on above: Performed By: #### P TT, PT #### [facility] [address] [place] [address] Dr. Todd Moreno PAP ACOG PANEL 2: 30 to 65on 10-10-2021 . . Normal [facility] Comment on above: Result Comment: Perf ormed at: WB Performed By: #### [id number] #### [facility] [address] [place] [address] Dr. Todd Moreno Age Gdln ACOG Testing - [facility] Comment on above: Performed By: #### [id number] #### [facility] [address] [place] [address] Dr. Todd Moreno DIAGNOSIS: Comment Normal [facility] Comment on above: Result Comment: NEGA TIVE FOR INTRAEPITHELIAL LESION OR MALIGNANCY. Performed at: WB Performed By: #### [id number] #### [facility] [address] [place] [address] Dr. Todd Moreno HPV Aptima Negative Normal Negative [facility] Comment on above: Result Comment: This nucleic acid amplification test detects fourteen high-risk HPV types (16,18,31,33,35,39,45,51,52,56,58,59,66,68) without differentiation. Performed at: =G Performed By: #### [id number] #### [facility] [address] [place] [address] Dr. Todd Moreno Methodology: Comment Normal [facility] Comment on above: Result Comment: This liquid based ThinPrep(R) pap test was screened with the use of an image guided system. Performed at: WB Performed By: #### [id number] #### [facility] [address] [place] [address] Dr. Todd Moreno Note: Comment Normal [facility] Comment on above: Result Comment: The Pap smear is a screening test designed to aid in the detection of premalignant and malignant conditions of the uterine cervix. It is not a diagnostic procedure and should not be used as the sole means of detecting cervical cancer. Both false-positive and false-negative reports do occur. . Performed at: WB Performed By: #### [id number] #### [facility] [address] [address] [address] Todd Moreno Performed by: Comment Normal [facility] Comment on above: Result Comment: Magalie Lemus, Applications System Analyst (ASCP) Performed at: WB Performed By: #### [id number] #### [facility] [address] [address] [address] Todd Moreno Specimen adequacy: Comment Normal [facility] Comment on above: Result Comment: Sati sfactory for evaluation. Endocervical and/or squamous metaplastic cells (endocervical component) are present. Performed at: WB Performed By: #### [id number] #### [facility] [address] [address] [address] Todd Moreno COVID-19 Antigenon 2 COVID-19 [...] its performance Corinne Disclaimer characteristic determined by [employer] and Corinne Disclaimer validated at [facility]. This Corinne Disclaimer test has not [...] is terminated or revoked sooner. PERFORMED BY: [facility] [place] [address] PATHOLOGIST GRINDER SET UP OPERATOR THREAD JONATHAN SHPEARD M.D. Normal [facility] Comment on above: Performed By: #### S OFIANEG, COVID-19 CORINNE #### [facility] [address] [place] [address] [place] HCG,Urineon 03-30-2021 Beta HCG ( test) Ql (U) Negative Normal [facility] Comment on above: Result Comment: PERF ORMED BY: [place] [phone] PATHOLOGIST GRINDER SET UP OPERATOR THREAD JONATHAN SHEPARD M.D. Performed By: #### U HCG #### [facility] [address] [place] [address] Corinne Ag Negativeon 03-30-19 Corinne Ag Negative Negative Normal Negative [facility] Comment on above: Result Comment: This is a duplicate Corinne SARS Antigen (KAEL) result to be used for statistical tracking purpose only. PERFORMED BY: [place] [address] PATHOLOGIST GRINDER SET UP OPERATOR THREAD JONATHAN SHEPARD M.D. Performed By: #### S OFIANEG, COVID-19 CORINNE #### [address] COVID-19 FRMCon 03-28-2021 SARS-CoV-2 (COVID-19) RNA JESE+probe Ql (Unsp spec) Negative Normal Negative [facility] Comment on above: Order Comment: Healt hcare Worker?: N Result Comment: Testing for SARS-CoV-2 by RT-PCR This test was developed and its performance characteristics determined by [employer], [employer] and validated at the [facility]. This test has not been FDA [...] is terminated or revoked sooner. PERFORMED BY: [place] [address] PATHOLOGIST GRINDER SET UP OPERATOR THREAD JONATHAN SHEPARD M.D. Performed By: #### C OVID 19 [facility] #### [address] XR elbow LT 2Von 03-01-2021 XR elbow LT 2V [facility] [place] [address] [place] [address] XRay Report Signed Patient: Moira Almaguer MR#: [id number] : 1985 Acct:[id number] Age/Sex: 35 / F ADM Date: 03/01/21 Loc: [facility] Room: [facility] Attending Dr: [...] Valdez Mcwilliams M.D.03/01/2021 1:47 PM Dictation Location: [place] [address] Transcribed By: [facility] 03/01/21 1349 Dictated By: Valdez Mcwilliams DO 03/01/21 1344 Signed By: 03/01/21 1347 [facility] XR FOREARM LEFT 2 VIEWSon [...] are recommended in 7 to 10 days. [facility]/[employer] Workstation ID: [id number] Dictated by: MAR DAWSON on SunSep 08, 2020 11:41:42 PM EDT Transcribed by: SHERRILL SMYTH on SunSep 09, 2020 12:10:05 AM EDT Finalized by: MAR DAWSON on SunSep 09, 2020 12:16:26 AM EDT [facility] Comment on above: Order Comment: Injur y/Trauma [...] SunSep 08, 2020 11:42:00 PM EDT [facility] Comment on above: Order Comment: Injur y/Trauma or Illness?:Injury/Trauma How long have you had these symptoms (acute/chronic)?:Acute Reason for exam?:fall, pain to left shoulder radiating down arm History of cancer?:no Surgeries, chemotherapy, or radiation?:no Type of Exam?:Initial Mechanism of injury?:fall Vital Signs Date Time Vital Sign Value Performing Clinician Facility 04-21-2024 10:04-0500 Body height 170.2 cm Valdo Fenton MD Work Phone: [facility] 04-21-2024 10:04-0500 Body mass index (BMI) [Ratio] 35.94 kg/m2 Valdo Fenton MD Work Phone: [facility] 04-21-2024 10:04-0500 Body weight 104.1 kg Valdo Fenton MD Work Phone: [facility] 04-21-2024 10:04-0500 Diastolic blood pressure 80 mm[Hg] Valdo Fenton MD Work Phone: [facility] 04-21-2024 10:04-0500 Heart rate 74 /min Valdo Fenton MD Work Phone: [facility] 04-21-2024 10:04-0500 SaO2% (BldA) [Mass fraction] 99 % Valdo Fenton MD Work Phone: [facility] 04-21-2024 10:04-0500 Systolic blood pressure 130 mm[Hg] Valdo Fenton MD Work Phone: [facility] 04-17-2024 11:20-0500 Body mass index (BMI) [Ratio] 35.96 kg/m2 Iveth MCGRATH Work Phone: [facility] 04-17-2024 11:20-0500 Body weight 104.15 kg Iveth MCGRATH Work Phone: [facility] 04-17-2024 11:20-0500 Diastolic blood pressure 68 mm[Hg] Iveth Hood PA Work Phone: [facility] 04-17-2024 11:20-0500 Systolic blood pressure 110 mm[Hg] Iveth Paresh PA Work Phone: [facility] 04-09-2024 14:01-0500 Body mass index (BMI) [Ratio] 35.87 kg/m2 You James DO Work Phone: [facility] 04-09-2024 14:01-0500 Body weight 103.87 kg You James DO Work Phone: [facility] 04-09-2024 14:01-0500 Diastolic blood pressure 72 mm[Hg] You James DO Work Phone: [facility] 04-09-2024 14:01-0500 Systolic blood pressure 118 mm[Hg] You James DO Work Phone: [facility] 03-25-2024 14:23-0500 Body mass index (BMI) [Ratio] 35.71 kg/m2 Iveth Paresh PA Work Phone: [facility] 03-25-2024 14:23-0500 Body weight 103.42 kg Iveth Paresh PA Work Phone: [facility] 03-25-2024 14:23-0500 Diastolic blood pressure 70 mm[Hg] Iveth Paresh PA Work Phone: [facility] 03-25-2024 14:23-0500 Systolic blood pressure 108 mm[Hg] Iveth Paresh PA Work Phone: [facility] 02-20-2024 11:40-0500 Body mass index (BMI) [Ratio] 34.68 kg/m2 You James DO Work Phone: [facility] 02-20-2024 11:40-0500 Body weight 100.43 kg You James DO Work Phone: [facility] 02-20-2024 11:40-0500 Diastolic blood pressure 70 mm[Hg] You James DO Work Phone: [facility] 02-20-2024 11:40-0500 Systolic blood pressure 120 mm[Hg] You James DO Work Phone: [facility] 02-07-2024 11:42-0500 Body mass index (BMI) [Ratio] 34.3 kg/m2 Iveth MCGRATH Work Phone: [facility] 02-07-2024 11:42-0500 Body weight 99.34 kg Iveth Paresh PA Work Phone: [facility] 02-07-2024 11:42-0500 Diastolic blood pressure 70 mm[Hg] Iveth Vining PA Work Phone: [facility] 02-07-2024 11:42-0500 Systolic blood pressure 118 mm[Hg] Iveth Paresh PA Work Phone: [facility] 01-10-2024 10:44-0400 Body mass index (BMI) [Ratio] 33.89 kg/m2 You James DO Work Phone: [facility] 01-10-2024 10:44-0400 Body weight 98.16 kg You James DO Work Phone: [facility] 01-10-2024 10:44-0400 Diastolic blood pressure 74 mm[Hg] You James DO Work Phone: [facility] 01-10-2024 10:44-0400 Systolic blood pressure 120 mm[Hg] You James DO Work Phone: [facility] 12-13-2023 10:51-0400 Body mass index (BMI) [Ratio] 33.33 kg/m2 You James DO Work Phone: [facility] 12-13-2023 10:51-0400 Body weight 96.53 kg You James DO Work Phone: [facility] 12-13-2023 10:51-0400 Diastolic blood pressure 80 mm[Hg] You James DO Work Phone: [facility] 12-13-2023 10:51-0400 Systolic blood pressure 126 mm[Hg] You James DO Work Phone: [facility] 11-15-2023 10:14-0400 Body mass index (BMI) [Ratio] 33.11 kg/m2 You James DO Work Phone: [facility] 11-15-2023 10:14-0400 Body weight 95.89 kg You James DO Work Phone: [facility] 11-15-2023 10:14-0400 Diastolic blood pressure 78 mm[Hg] You James DO Work Phone: [facility] 11-15-2023 10:14-0400 Systolic blood pressure 118 mm[Hg] You James DO Work Phone: [facility] 03-01-2021 11:00-0500 Body height 170.18 cm Leandro Olexa Other [facility] Other 03-01-2021 11:00-0500 Body mass index (BMI) [Ratio] 30.07 kg/m2 Leandro Olexa Other [facility] Other 03-01-2021 11:00-0500 Body weight 87.09 kg Leandro Olexa Other [facility] Other Encounters Encounter Date Encounter Type Care Provider Facility Start: 04-21-2024 End: 04-21-2024 Bamboo flowsheet Valdo Fenton MD Work Phone: [facility] Start: 04-21-2024 End: 04-21-2024 Bamboo flowsheet Valdo Fenton MD Work Phone: [facility] Start: 04-21-2024 End: 04-21-2024 ambulatory VALDO FENTON Not Available Start: 04-21-2024 End: 04-21-2024 Patient encounter status Valdo Fenton MD Work Phone: [facility] Work Phone: Start: 04-21-2024 End: 04-21-2024 Periodic preventive med est patient 18-39 yrs Valdo Pascual Nathalie KOTHARI Work Phone: [facility] Comment on above: Encounter for wellne ss examination in adult (Primary Dx); Advance directive discussed with patient; Screening for lipid disorders Start: 04-17-2024 End: 04-17-2024 flow sheet Iveth MCGRATH Work Phone: [facility] Comment on above: Third trimester preg rocky; 37 weeks gestation of Start: 04-17-2024 End: 04-17-2024 ambulatory IVETH HOOD Not Available Start: 04-09-2024 End: 04-09-2024 Bamboo flowsheet You James DO Work Phone: [facility] Start: 04-09-2024 End: 04-14-2024 Bamboo flowsheet You James DO Work Phone: [facility] Start: 04-09-2024 End: 04-14-2024 Clinisync Result Encounter Generic External Data Provider [facility] Unsolicited Start: 04-09-2024 End: 04-09-2024 ambulatory YOU JAMES Not Available Start: 04-09-2024 End: 04-09-2024 flow sheet You James DO Work Phone: [facility] [...] trimester Start: 03-10-2024 End: 03-10-2024 Bamboo flowsheet You James DO Work Phone: [facility] Start: 03-10-2024 End: 03-10-2024 Bamboo flowsheet You James DO Work Phone: [facility] Start: 03-10-2024 End: 03-10-2024 ambulatory YOU JAMES Not Available Start: 03-10-2024 End: 03-10-2024 flow sheet You James DO Work Phone: [facility] Comment on above: 32 weeks gestation o f ; Third trimester ; History of gestational diabetes; Anemia, unspecified type Start: 02-20-2024 End: 02-20-2024 Bamboo flowsheet You James DO Work Phone: [facility] Start: 02-20-2024 End: 02-20-2024 Bamboo flowsheet You James DO Work Phone: [facility] Start: 02-20-2024 End: 02-20-2024 Clinisync Result Encounter You James DO Work Phone: [facility] Unsolicited Start: 02-20-2024 End: 02-20-2024 ambulatory YOU JAMES Not Available Start: 02-20-2024 End: 02-20-2024 flow sheet You James DO Work Phone: [facility] [...] Start: 02-07-2024 End: 02-07-2024 flow sheet Iveth Hood PA Work Phone: [facility] Comment on above: 24 weeks gestation o f ; size consistent with dates during in second trimester Start: 02-04-2024 End: 02-04-2024 ambulatory [facility] Start: 01-30-2024 End: 01-30-[address] [facility] Start: 01-23-2024 End: 01-23-2024 Telephone encounter Emily Alfaro DO Work Phone: [facility] Start: 01-10-2024 End: 01-10-2024 Bamboo flowsheet You James DO Work Phone: [facility] Start: 01-10-2024 End: 01-10-2024 Bamboo flowsheet You James DO Work Phone: [facility] Start: 01-10-2024 End: 01-10-2024 flow sheet You James DO Work Phone: [facility] Comment on above: Second trimester pre gnancy; 23 weeks gestation of Start: 01-10-2024 End: 01-10-2024 ambulatory YOU JAMES Not Available Start: 01-07-2024 End: 01-07-2024 ambulatory ROB [facility] Start: 12-24-2023 End: 12-24-[address] [facility] Start: 12-13-2023 End: 12-13-2023 Bamboo flowsheet You James DO Work Phone: [facility] Start: 12-13-2023 End: 12-14-2023 Bamboo flowsheet You James DO Work Phone: [facility] Start: 12-13-2023 End: 12-14-2023 External Result Encounter You James DO Work Phone: [facility] Unsolicited Start: 12-13-2023 End: 12-13-2023 ambulatory YOU JAMES Not Available Start: 12-13-2023 End: 12-13-2023 flow sheet You James DO Work Phone: [facility] Comment on above: 19 weeks gestation o f ; Exposure to STD; Vaginal discharge; Elevated glucose Start: 11-15-2023 End: 11-15-2023 Bamboo flowsheet You James DO Work Phone: [facility] Start: 11-15-2023 End: 11-15-2023 Bamboo flowsheet You James DO Work Phone: [facility] Start: 11-15-2023 End: 11-15-2023 ambulatory YOU JAMES Not Available Start: 11-15-2023 End: 11-15-2023 flow sheet You James DO Work Phone: [facility] Comment on above: Second trimester pre gnancy; History of gestational diabetes; Diabetes mellitus screening; Screening, , for anatomic survey Start: 11-07-2023 End: 11-07-2023 Clinisync Result Encounter Iveth MCGRATH Work Phone: [facility] Unsolicited Start: 11-07-2023 End: 11-07-2023 Clinisync Result Encounter Iveth MCGRATH Work Phone: [facility] Unsolicited Start: 10-18-2023 End: 10-18-2023 ambulatory YOU RAMIREZ Not Available Start: 05-21-2023 End: 05-21-2023 ambulatory IVETH HOOD Not Available Start: 05-30-2022 End: 05-30-[address] YOU RAMIREZ . Facility:[facility] Start: 03-20-2022 End: 03-21-[address] YOU RAMIREZ . Facility:[facility] Start: 02-24-2022 End: 02-25-[address] DOCTOR SANCHEZ Facility:[facility] Start: 01-31-2022 End: 02-01-[address] ROB HINES Facility:[facility] Start: 10-15-2021 End: 10-16-[address] YOU RAMIREZ . Facility:[facility] Start: 10-05-2021 End: 10-05-[address] YOU RAMIREZ . Facility:[facility] Start: 03-01-2021 End: 03-01-2021 ambulatory Leandro Robles Other [facility] Other Start: 03-01-2021 Encounter for other preprocedural examination Leandro Robles [facility] Start: 03-01-2021 Office outpatient ne w 45 minutes Leandro Robles [facility] Start: 09-09-2020 End: 09-09-2020 [facility] Date Procedure Procedure Detail Performing Clinician Start: 04-17-2024 Urnls dip stick/tabl et rgnt non-auto w/o micrscp Iveth MCGRATH Work Phone: Start: 04-09-2024 ALL MISCELLANEOUS TEST Oyu James DO Work Phone: Start: 03-25-2024 Urnls dip stick/tabl et rgnt non-auto w/o micrscp Iveth MCGRATH Work Phone: Start: 03-10-2024 Urnls dip stick/tabl et rgnt non-auto w/o micrscp You James DO Work Phone: Start: 02-20-2024 MLR HEMOGLOBIN A1C Core y James DO Work Phone: Start: 02-20-2024 Urnls dip stick/tabl et rgnt non-auto w/o micrscp You James DO Work Phone: Start: 02-04-2024 Follow-up visit Follow-up ROB GONZALES Start: 01-10-2024 Urnls dip stick/tabl et rgnt non-auto w/o micrscp You James DO Work Phone: Start: 12-13-2023 URETHRITIS/DISCHARGE PLUS VAGINITIS (HTRX) You James DO Work Phone: Start: 12-13-2023 Urnls dip stick/tabl et rgnt non-auto w/o micrscp You James DO Work Phone: Start: 11-15-2023 Urnls dip stick/tabl et rgnt non-auto w/o micrscp You James DO Work Phone: Start: 11-07-2023 ALL CBC WITH AUTO DIFF Iveth MCGRATH Work Phone: Start: 03-08-2023 Microscopic observat ion [Identifier] in Cervix by Cyto stain [facility] DO Work Phone: Start: 03-08-2023 Cytp cerv/vag auto t hin layer prep mnl screen [facility] [facility] DO Work Phone: Start: 10-05-2021 Microscopic observat ion [Identifier] in Cervix by Cyto stain Iveth MCGRATH Work Phone: Plan of Treatment Date Care Activity Detail Author Start: 03-08-2028 Screening for malign ant neoplasm of cervix [facility] Start: 10-05-2026 Screening for malign ant neoplasm of cervix [facility] Start: 04-24-2024 End: 04-24-2024 Patient encounter procedure 04/24/2024 9:40 AM EST Routine [facility] [address] [place] [address] You Ramirez, DO [address] [place] [address] [facility] Start: 04-21-2024 End: 04-21-2025 Lipid 1996 panel - Serum or Plasma Lipid panel Lab Routine Screening for lipid disorders Expected: 04/21/2024 (Approximate), Expires: 04/21/2025 [facility] Work Phone: Comment on above: Expected: 04/21/2024 (Approximate), Expires: 04/21/2025 Start: 04-21-2024 End: 04-21-2024 Patient encounter procedure 04/21/2024 10:00 AM EST Office Visit [facility] [address] [place] [address] Valdo Fenton MD [address] [place] [address] (Fax) [facility] Start: 04-17-2024 End: 04-17-2024 Patient encounter procedure 04/17/2024 11:20 AM EST Routine [facility] [address] [place] [address] Iveth Hood PA [address] [place], [place] [id number] [facility] Start: 04-17-2024 End: 04-17-2024 Professional / ancillary services management 04/17/2024 10:30 AM EST Ancillary Procedure [facility] [address] [place] [address] [facility] Start: 04-09-2024 End: [...] PM EST Routine [facility] [address] [place] [phone] You Ramirez, DO [address] [place] [address] [facility] Start: 03-24-2024 End: 03-24-2024 Patient encounter procedure 03/24/2024 11:20 AM EST Routine [facility] [address] [place], [place] [address] [address] Iveth Hood PA [address] [place], [place] [address] [place] [address] [facility] Start: 03-10-2024 End: 03-10-2025 [...] 9:30 AM EST Routine [facility] [address] [place], [place] [address] [address] You Ramirez, DO [address] [place], [place] [address] [address] [facility] Start: 02-20-2024 End: 02-19-2025 CBC panel - Blood by Automated count CBC Lab Routine Diabetes mellitus screening Expected: 02/20/2024 (Approximate), Expires: 02/19/2025 [facility] Work Phone: Comment on above: Expected: 02/20/2024 (Approximate), Expires: 02/19/2025 Start: 02-20-2024 End: 02-20-2024 Patient encounter procedure 02/20/2024 11:00 AM EST Routine [facility] [address] [place] [id number] You Ramirez DO [address] [facility] [place] [address] [facility] Start: 02-07-2024 End: 02-06-2025 US for US OB SCAN FOR GROWTH Imaging Routine size consistent with dates during in second trimester Expected: 02/07/2024 (Approximate), Expires: 02/06/2025 [facility] Work Phone: Comment on above: Expected: 02/07/2024 (Approximate), Expires: 02/06/2025 Start: 02-07-2024 End: 02-07-2024 Patient encounter procedure 02/07/2024 11:20 AM EST Routine [facility] [address] [facility] [place] [phone] Iveth Hood PA [address] [facility] [place] [address] [facility] Start: 01-10-2024 End: 01-10-2024 Patient encounter procedure [facility] Comment on above: Arrived Start: 12-17-2023 End: 12-17-2023 Professional / ancillary services management 12/17/2023 8:00 AM EDT Ancillary Procedure [facility] [address] [facility] [place] [phone] [facility] Start: 12-13-2023 End: 01-12-2024 Alpha fetoprotein, maternal Alpha fetoprotein, maternal Lab Routine 19 weeks gestation of Expected: 12/13/2023 (Approximate), Expires: 01/12/2024 [facility] Comment on above: Expected: 12/13/2023 (Approximate), Expires: 01/12/2024 Start: 12-13-2023 End: 12-13-2023 Patient encounter procedure 12/13/2023 10:10 AM EDT Routine [facility] [address] [facility] [place] [phone] You Ramirez, DO [address] [place] [address] [facility] Start: 11-18-2023 Influenza vaccination Influenza Vacc ine (#1) [facility] Start: 11-15-2023 End: 11-14-2024 Measurement of glucose 1 hour after glucose challenge for glucose tolerance test Glucose tolerance, 1 hour Lab Routine Diabetes mellitus screening Expected: 11/15/2023 (Approximate), Expires: 11/14/2024 [facility] Work Phone: Comment on above: Expected: 11/15/2023 (Approximate), Expires: 11/14/2024 Start: 11-15-2023 End: 11-14-2024 US for US OB ANATOMY SINGLE W US OB CERVICAL LENGTH Imaging Routine Second trimester History of gestational diabetes Screening, , for anatomic survey Expected: 11/15/2023 (Approximate), Expires: 11/14/2024 [facility] Comment on above: Expected: 11/15/2023 (Approximate), Expires: 11/14/2024 Start: 11-15-2023 End: 11-15-2023 Patient encounter procedure 11/15/2023 9:50 AM EDT Routine [facility] [address] [facility] [place] [phone] You Ramirez, DO [address] [place] [address] [facility] CBC W Auto Different ial panel - Blood CBC and differential Lab Routine Third trimester Other iron deficiency anemia Ordered: 04/09/2024 [facility] Comment on above: Ordered: 04/09/2024 CHLAMYDIA TRACHOMATI S (GENITO/STI) CHLAMYDIA TRACHOMATIS (GENITO/STI) Lab Routine Exposure to STD Ordered: 12/13/2023 [facility] Comment on above: Ordered: 12/13/2023 Ferritin [Mass/volum e] in Serum or Plasma Ferritin Lab Routine Third trimester Other iron deficiency anemia Ordered: 04/09/2024 [facility] Comment on above: Ordered: 04/09/2024 Hemoglobin A1c/Hemoglobin.total in Blood Hemoglobin A1c Lab Routine Diabetes mellitus screening Ordered: 02/20/2024 [facility] Comment on above: Ordered: 02/20/2024 Neisseria gonorrhoea e DNA [Presence] in Unspecified specimen by JESE with probe detection Neisseria gonorrhea DNA probe, direct Lab Routine Exposure to STD Ordered: 12/13/2023 [facility] Comment on above: Ordered: 12/13/2023 SURESWAB(R) ADVANCED VAGINITIS PLUS, TMA SURESWAB(R) ADVANCED VAGINITIS PLUS, TMA Pathology and Cytology Routine Vaginal discharge Ordered: 12/13/2023 [facility] Work Phone: Comment on above: Ordered: 12/13/2023 Vitamin D 1,25 dihydroxy Vitamin D 1,25 dihydroxy Lab Routine Third trimester Ordered: 04/09/2024 [facility] Comment on above: Ordered: 04/09/2024 Immunizations Immunization Date Immunization Notes Care Provider [facility] 12-26-2016 hepatitis B vaccine, adult dosage Iveth MCGRATH Work Phone: [facility] 12-26-2016 seasonal influenza, intradermal, preservative free Iveth MCGRATH Work Phone: [facility] 12-26-2016 influenza virus vacc ine, unspecified formulation Iveth MCGRATH Work Phone: [facility] Payers Date Payer Category Payer Private Health Insurance [id number] 2021 Private Health Insurance [employer] [id number] 2021 Unknown FRONTPATH FRONTP ATH [id number] 2021-Present [phone] [address] [place] [address] [id number]. [id number] 2019 Unknown [id number] 1986 Unknown [id number] 2.16.840.1.160213.3.579.2. 902 1986 Unknown [id number] 2.16.840.1.245842.3.579.2. 593 1986 Unknown [id number] 2.16.840.1.574197.3.579.2. 593 1986 Unknown [id number] 2.16.840.1.841617.3.579.2. 593 1986 Unknown [id number] 2.16.840.1.800252.3.579.2. 593 1986 Unknown [id number] 2.16.840.1.470362.3.579.2. 593 1986 Unknown [id number] 2.16.840.1.551984.3.579.2. 593 1986 Unknown [id number] 2.16.840.1.189772.3.579.2. 1286 1986 Unknown [id number] 2.16.840.1.762690.3.579.2. 1286 1986 Unknown [id number] 2.16.840.1.756677.3.579.2. 1286 1986 Unknown [id number] 2.16.840.1.296054.3.579.2. 1286 1986 Unknown [id number] 2.16.840.1.038680.3.579.2. 1259 1986 Unknown [id number] 2.16.840.1.163531.3.579.2. 1258 1986 Unknown [id number] 2.16.840.1.651159.3.579.2. 1258 1986 Unknown [id number] 2.16.840.1.767933.3.579.2. 1258 1986 Unknown [id number] 2.16.840.1.990883.3.579.2. 1258 1986 Unknown [id number] 2.16.840.1.832381.3.579.2. 1258 1986 Unknown [id number] 2.16.840.1.423367.3.579.2. 1258 1986 Unknown [id number] 2.16.840.1.167755.3.579.2. 1258 1986 Unknown [id number] 2.16.840.1.589650.3.579.2. 1258 1986 Unknown [id number] 2.16.840.1.790728.3.579.2. 1258 1986 Unknown [id number] 2.16.840.1.113599.3.579.2. 1258 1986 Unknown [id number] 2.16.840.1.111491.3.579.2. 1258 1986 Unknown [id number] 2.16.840.1.934759.3.579.2. 1259 1959 Self-pay 1959 Unknown [id number] 1959 Unknown [id number] 1959 Unknown [id number] Unknown [id number] 2.16.840.1.247547.3.579.2. 593 Social History Date Type Detail Facility Start: 10-15-2022 End: 02-05-2023 Sex Assigned At [facility] Start: 02-12-2023 Tobacco smoking status WVIS Ex-smoke r [facility] End: 08-19-2011 History of tobacco use Current smoker [facility] End: 08-19-2011 History of tobacco use Cigarette Smoker [facility] Start: 02-12-2023 Tobacco use and exposure Smoke less tobacco non-user [facility] Start: 01-10-2024 End: 04-21-2024 Alcoholic beverage intake Ex-drinker (finding) [facility] Start: 10-15-2022 End: 02-05-2023 History of Social function [facility] Within the last year , have you been afraid of your partner or ex-partner? No [facility] Do you belong to any clubs or organizations such as scientologist groups, unions, fraternal or athletic groups, or [...] Identifies as female gender (finding) [facility] Clinical Notes 03-01-2021 to 04-21-2024 Valdo Fenton MD - 04/21/2024 10:00 AM RAMILA Pompa - 04/17/2024 11:20 AM Ke Chun LPN - 04/09/2024 1:30 PM RAMILA Pompa - 03/25/2024 1:40 PM EST Note Date & Type Note Facility 04-21-2024 History of Presen t illness Narrative Images from the original note were not included. Patient ID: Moira Starr is a 38 y.o. female who presents for: Adult Wellness: See Scanned Wellness packet Advance Directive/Living Will: No Health Care Power of Rebar Bender: No Review of Systems Constitutional: Negative for appetite change, chills, fever and unexpected weight change. Breasts: Negative for breast mass and breast discharge. Respiratory: Negative for cough, shortness of breath and wheezing. Cardiovascular: Negative for chest pain, palpitations and leg swelling. Gastrointestinal: Positive for constipation and diarrhea. Negative for abdominal pain. Genitourinary: Positive for menstrual problem. Negative for frequency and urgency. Neurological: Positive for headaches. Negative for light-headedness. Psychiatric/Behavioral: Negative for behavioral problems and sleep disturbance. The patient is not nervous/anxious. Objective The patient is pleasant and in no acute distress. The head is normocephalic and atraumatic. Both eyes appear grossly normal without obvious lid pathology or icterus. Both ears hearing is grossly intact. The neck is supple and trachea is midline. No masses are appreciated. The anterior cervical lymphatics demonstrates shoddy bilateral nontender lymphadenopathy. There is no supraclavicular lymphadenopathy. The heart is regular rate and rhythm without S3, S4. 1-2/6 systolic murmur. The patient has normal respiratory pattern. The breath sounds are symmetrical without evidence of rhonchi or rales. No wheezing. The skin is warm and dry. The lower extremities have trace edema. Neurologic screening exam is nonfocal. The patient is alert. There is no overt gross evidence of cognitive impairment The patient has good eye contact and speech is clear. Appropriate affect. Visit Vitals BP 130/80 Pulse 74 Ht 5' 7 Wt 229 lb 8 oz LMP 07/28/2023 SpO2 99% Yes BMI 35.94 kg/m OB Status Smoking Status Former BSA 2.22 m Allergies Allergen Reactions Sertraline Other Flat emotions Other Reaction(s): decreased emotional lability Current Outpatient Medications on File Prior to Visit Medication Sig Dispense Refill Continuous Glucose Collection Specialist (Dexcom G7 Collection Specialist) device 1 each every 14 (fourteen) days 1 each 0 Continuous Glucose Sensor (Dexcom G7 Sensor) misc 1 each every 14 (fourteen) days 2 each 11 Folic Acid (FOLATE PO) Take 1 tablet by mouth Daily IRON CR PO Take 1 tablet by mouth in the morning and 1 tablet before bedtime. Probiotic Product (PROBIOTIC DAILY PO) Take 2 capsules by mouth Daily Pre and Probiotic with Cranberry Vitamin D-Vitamin K (VITAMIN K2-VITAMIN D3 PO) Take 2 drops by mouth Daily [DISCONTINUED] amoxicillin (Amoxil) 500 MG tablet Take 1 tablet (500 mg) by mouth in the morning and 1 tablet (500 mg) in the evening and 1 tablet (500 mg) before bedtime. Do all this for 7 days. 21 tablet 0 [DISCONTINUED] MV-Min-Fe Fum-FA-DHA ( 1 PO) Take by mouth. [DISCONTINUED] saccharomyces boulardii (Florastor) 250 MG capsule Take 250 mg by mouth in the morning and 250 mg before bedtime. No current facility-administered medications on file prior to visit. 1. Encounter for wellness examination in adult (Primary) I have reviewed the patients PMShx, medications, and reconciled the problem list. Health maintenance and risk was reviewed and discussed. I also reviewed and discussed as appropriate; immunizations, colon cancer screening, breast and cervical cancer screening, recommended and any current lab evaluation. All items were brought up to date unless declined by the patient. 2. Advance directive discussed with patient Patient voluntarily agreed to discuss advance care planning at today's wellness visit. We discussed that an advance directive is a legal document that only goes into effect if the patient is incapacitated and unable to speak for themselves. This would help us to decide what care the patient would want. We discussed emergency treatments to keep the patient alive such as CPR, ventilator use and concept of comfort. We discussed how patients could make their wishes known through a living will, durable power of patent prosecution attorney for healthcare, or other advanced directives. We discussed telling onofre people about their advance and a copy will be kept in the EHR. I discussed that they should also make me an emergency contact in their cell phone, and/or notify their POA that I have a copy of the advanced directives. 3. Screening for lipid disorders To be done with her post needle blood work after her delivery. - Lipid panel; Future - Lipid panel documented in this encounter [facility] 04-17-2024 History of Presen t illness Narrative Reason for Appointment: Patient ID: Moira Starr is a 38 y.o. female who presents for Routine Visit Patient presents today for Return OB appointment. MEDICATIONS Current Outpatient Medications Medication Instructions Continuous Glucose Collection Specialist (Dexcom G7 Collection Specialist) device 1 each, Does not apply, Every 14 days Continuous Glucose Sensor (Dexcom G7 Sensor) misc 1 each, Does not apply, Every 14 days MV-Min-Fe Fum-FA-DHA ( 1 PO) Take by mouth. saccharomyces boulardii (FLORASTOR) 250 mg, 2 times daily ALLERGIES Allergies Allergen Reactions Sertraline Other Flat emotions Other Reaction(s): decreased emotional lability PROBLEMS Active Ambulatory Problems Diagnosis Date Noted Attention deficit hyperactivity disorder (ADHD) (CMS/[facility]) 09/15/2022 Cervicalgia 09/15/2022 Chronic fatigue 09/15/2022 Chronic tension-type headache, not intractable 09/15/2022 Generalized anxiety disorder (CMS/HCC) 09/15/2022 HPV (human papilloma virus) infection 09/15/2022 LGSIL on Pap smear of cervix 09/15/2022 Migraine with aura and without status migrainosus, not intractable (CMS/HCC) 09/15/2022 Moderate recurrent major depression (CMS/[facility]) 09/15/2022 Other chronic pain 09/15/2022 Radicular pain 09/15/2022 Vitamin D deficiency 09/15/2022 History of miscarriage 06/22/2023 Resolved Ambulatory Problems Diagnosis Date Noted Large breasts 09/15/2022 Missed period 09/15/2022 Positive urine test 06/22/2023 23 weeks gestation of 01/10/2024 32 weeks gestation of 03/10/2024 Third trimester 03/10/2024 34 weeks gestation of 03/25/2024 Past Medical History: Diagnosis Date ADHD (attention deficit hyperactivity disorder) (CMS/[facility]) ADHD (attention deficit hyperactivity disorder) (CMS/[facility]) Ankle pain, left Anxiety with depression [...] reviewed. Vitals: Estimated body mass index is 35.96 kg/m as calculated from the following: Height as of 23: 5' 7 . Weight as of this encounter: 229 lb 9.6 oz. BP: 110/68 Patient's last menstrual period was 07/28/2023. ASSESSMENT & PLAN ICD-10-CM 1. Third trimester Z34.93 POCT urinalysis dipstick manually resulted 2. 37 weeks gestation of Z3A.37 Return OB: Patient presents today for a routine obstetrics appointment. Patient is currently 37w5d . Patient states she is doing well but has complaints of being tired due to current . Patient has verbalizes frequent movement. labor precautions was discussed/given and patient was instructed to perform kick counts three times a day. Orders Placed This Encounter Procedures POCT urinalysis dipstick manually resulted Follow Up: Patient is to return to office in 1 week for routine OB appointment. Documented by RAMILA Joshi on behalf of: RAMILA Joshi documented in this encounter [facility] 04-09-2024 History of Presen t illness Narrative Reason for Appointment: Patient ID: Moira Starr is a 38 y.o. female who presents for Routine Visit Patient presents today for Return OB appointment. MEDICATIONS Current Outpatient Medications Medication Instructions Continuous Glucose Collection Specialist (FreeStyle Adriana 2 Reeders) device 1 Device, Does not apply, 4 [...] Date Noted Attention deficit hyperactivity disorder (ADHD) ([facility]) 09/15/2022 Cervicalgia 09/15/2022 Chronic fatigue 09/15/2022 Chronic tension-type headache, not intractable 09/15/2022 Generalized anxiety disorder ([facility]) 09/15/2022 HPV (human papilloma virus) infection 09/15/2022 Large breasts 09/15/2022 LGSIL on Pap smear of cervix 09/15/2022 Migraine with aura and without status migrainosus, not intractable ([facility]) 09/15/2022 Missed period 09/15/2022 Moderate recurrent major depression ([facility]) 09/15/2022 Other chronic pain 09/15/2022 Radicular pain 09/15/2022 Vitamin D deficiency 09/15/2022 History of miscarriage 06/22/2023 Positive urine test 06/22/2023 23 weeks gestation of 01/10/2024 32 weeks gestation of 03/10/2024 Third trimester 03/10/2024 34 weeks gestation of 03/25/2024 Resolved Ambulatory Problems Diagnosis Date Noted No Resolved Ambulatory Problems Past Medical History: Diagnosis Date ADHD (attention deficit hyperactivity disorder) ([facility]) ADHD (attention deficit hyperactivity disorder) ([facility]) Ankle pain, left Anxiety with depression [...] Diagnosis Date ADHD (attention deficit hyperactivity disorder) ([facility]) ADHD (attention deficit hyperactivity disorder) ([facility]) Ankle pain, left Anxiety with depression [...] nursing note reviewed. Exam conducted with a telegraph service rater present. Vitals: Estimated body mass index is [...] by Chika Chun LPN on behalf of: You Ramirez DO documented in this encounter [facility] 03-25-2024 History of Presen t illness Narrative Reason for Appointment: Patient ID: Moira Starr is a 38 y.o. female who presents for No chief complaint on file. Patient presents today for Return OB appointment. MEDICATIONS Current Outpatient Medications Medication Instructions Continuous Glucose Collection Specialist (FreeStyle Adriana 2 Reeders) device 1 Device, Does not apply, 4 [...] nursing note reviewed. Exam conducted with a telegraph service rater present. Vitals: Estimated body mass index is [...] Estimated Date of Delivery: 05/03/24. Documented by eBlen Oconnell LPN on behalf of: RAMILA Joshi documented in this encounter [facility] 03-10-2024 History of Presen t illness Narrative Reason for Appointment: Patient ID: Moira Starr is a 38 y.o. female who presents for Routine Visit Patient presents today for Return OB appointment. MEDICATIONS Current Outpatient Medications Medication Instructions Continuous Glucose Collection Specialist (FreeStyle Adriana 2 Reeders) device 1 Device, Does not apply, 4 times daily MV-Min-Fe Fum-FA-DHA ( 1 PO) Take by mouth. saccharomyces boulardii (FLORASTOR) 250 mg, 2 times daily ALLERGIES Allergies Allergen Reactions Sertraline Other Flat emotions Other Reaction(s): decreased emotional lability PROBLEMS Active Ambulatory Problems Diagnosis Date Noted Attention deficit hyperactivity disorder (ADHD) ([facility]) 09/15/2022 Cervicalgia 09/15/2022 Chronic fatigue 09/15/2022 Chronic tension-type headache, not intractable 09/15/2022 Generalized anxiety disorder ([facility]) 09/15/2022 HPV (human papilloma virus) infection 09/15/2022 Large breasts 09/15/2022 LGSIL on Pap smear of cervix 09/15/2022 Migraine with aura and without status migrainosus, not intractable ([facility]) 09/15/2022 Missed period 09/15/2022 Moderate recurrent major depression ([facility]) 09/15/2022 Other chronic pain 09/15/2022 Radicular pain 09/15/2022 Vitamin D deficiency 09/15/2022 History of miscarriage 06/22/2023 Positive urine test 06/22/2023 23 weeks gestation of 01/10/2024 32 weeks gestation of 03/10/2024 Third trimester 03/10/2024 Resolved Ambulatory Problems Diagnosis Date Noted No Resolved Ambulatory Problems Past Medical History: Diagnosis Date ADHD (attention deficit hyperactivity disorder) ([facility]) ADHD (attention deficit hyperactivity disorder) ([facility]) Ankle pain, left Anxiety with depression Epidermal inclusion cyst Fall with injury Gastro-esophageal reflux disease without esophagitis Headache History of cigarette smoking IBS (irritable bowel syndrome) Influenza Irritable bowel syndrome without diarrhea Mononucleosis syndrome Pain in thoracic spine Perennial allergic rhinitis Scoliosis Sinusitis URI (upper respiratory infection) HISTORY PAST MEDICAL HISTORY SOCIAL HISTORY Past Medical History: Diagnosis Date ADHD (attention deficit hyperactivity disorder) ([facility]) ADHD (attention deficit hyperactivity disorder) ([facility]) Ankle pain, left Anxiety with depression Anxiety/depression [...] by Mónica Vincent MA on behalf of: You Ramirez DO documented in this encounter [facility] 02-20-2024 History of Presen t illness Narrative Reason for Appointment: Patient ID: Moira Starr is a 38 y.o. female who presents for Routine Visit Patient presents today for Return OB appointment. MEDICATIONS Current Outpatient Medications Medication Instructions Continuous Glucose Collection Specialist (AGLOGIC Adriana 2 Reeders) device 1 Device, Does not apply, 4 [...] Documented by RAMILA Joshi on behalf of: You Ramirez DO documented in this encounter [facility] 02-07-2024 History of Presen t illness Narrative Reason for Appointment: Patient ID: Moira Starr is a 38 y.o. female who presents for Routine Visit Patient presents today for Return OB appointment. MEDICATIONS Current Outpatient Medications Medication Instructions Continuous Glucose Collection Specialist (FreeStyle Adriana 2 Reeders) device 1 Device, Does not apply, 4 times daily ergocalciferol (VITAMIN D2) 1.25 mg, Oral, Weekly MV-Min-Fe Fum-FA-DHA ( 1 PO) Oral saccharomyces boulardii (FLORASTOR) 250 mg, Oral, 2 times daily ALLERGIES Allergies Allergen Reactions Sertraline Other Flat emotions Other Reaction(s): decreased emotional lability PROBLEMS Active Ambulatory Problems Diagnosis Date Noted Attention deficit hyperactivity disorder (ADHD) ([facility]) 09/15/2022 Cervicalgia 09/15/2022 Chronic fatigue 09/15/2022 Chronic tension-type headache, not intractable 09/15/2022 Generalized anxiety disorder ([facility]) 09/15/2022 HPV (human papilloma virus) infection 09/15/2022 Large breasts 09/15/2022 LGSIL on Pap smear of cervix 09/15/2022 Migraine with aura and without status migrainosus, not intractable ([facility]) 09/15/2022 Missed period 09/15/2022 Moderate recurrent major depression ([facility]) 09/15/2022 Other chronic pain 09/15/2022 Radicular pain 09/15/2022 Vitamin D deficiency 09/15/2022 History of miscarriage 06/22/2023 Positive urine test 06/22/2023 23 weeks gestation of 01/10/2024 Resolved Ambulatory Problems Diagnosis Date Noted No Resolved Ambulatory Problems Past Medical History: Diagnosis Date ADHD (attention deficit hyperactivity disorder) ([facility]) ADHD (attention deficit hyperactivity disorder) ([facility]) Ankle pain, left Anxiety with depression [...] Diagnosis Date ADHD (attention deficit hyperactivity disorder) ([facility]) ADHD (attention deficit hyperactivity disorder) ([facility]) Ankle pain, left Anxiety with depression [...] of: RAMILA Joshi documented in this encounter [facility] 01-23-2024 Telephone encount er Note Endocrinology [...] we will have to put her with FOOD SERVICES MANAGER of her choice (since she would be a returning [facility] pt) to establish care. [facility] 01-23-2024 Miscellaneous Notes Formattin g of [...] we will have to put her with FOOD SERVICES MANAGER of her choice (since she would be a returning [facility] pt) to establish care. documented in this encounter [facility] 01-10-2024 History of Presen t illness Narrative Reason for Appointment: Patient ID: Moira Starr is a 38 y.o. female who presents for Routine Visit Patient presents today for Return OB appointment. MEDICATIONS Current Outpatient Medications Medication Instructions Continuous Glucose Collection Specialist (FreeStyle Adriana 2 Reeders) device 1 Device, Does not apply, 4 [...] Date Noted Attention deficit hyperactivity disorder (ADHD) ([facility]) 09/15/2022 Cervicalgia 09/15/2022 Chronic fatigue 09/15/2022 Chronic tension-type headache, not intractable 09/15/2022 Generalized anxiety disorder ([facility]) 09/15/2022 HPV (human papilloma virus) infection 09/15/2022 Large breasts 09/15/2022 LGSIL on Pap smear of cervix 09/15/2022 Migraine with aura and without status migrainosus, not intractable ([facility]) 09/15/2022 Missed period 09/15/2022 Moderate recurrent major depression ([facility]) 09/15/2022 Other chronic pain 09/15/2022 Radicular pain 09/15/2022 Vitamin D deficiency 09/15/2022 History of miscarriage 06/22/2023 Positive urine test 06/22/2023 Resolved Ambulatory Problems Diagnosis Date Noted No Resolved Ambulatory Problems Past Medical History: Diagnosis Date ADHD (attention deficit hyperactivity disorder) ([facility]) ADHD (attention deficit hyperactivity disorder) ([facility]) Ankle pain, left Anxiety with depression Epidermal inclusion cyst Fall with injury Gastro-esophageal reflux disease without esophagitis Headache History of cigarette smoking IBS (irritable bowel syndrome) Influenza Irritable bowel syndrome without diarrhea Mononucleosis syndrome Pain in thoracic spine Perennial allergic rhinitis Scoliosis Sinusitis URI (upper respiratory infection) HISTORY PAST MEDICAL HISTORY SOCIAL HISTORY Past Medical History: Diagnosis Date ADHD (attention deficit hyperactivity disorder) ([facility]) ADHD (attention deficit hyperactivity disorder) ([facility]) Ankle pain, left Anxiety with depression Anxiety/depression [...] nursing note reviewed. Exam conducted with a telegraph service rater present. Vitals: Estimated body mass index is [...] by Belen Oconnell LPN on behalf of: You Ramirez DO documented in this encounter [facility] 12-13-2023 History of Presen t illness Narrative Reason for Appointment: Patient ID: Moira Starr is a 38 y.o. female who presents for Routine Visit and STI Screening Patient presents today for Return OB appointment. MEDICATIONS Current Outpatient Medications Medication Instructions Continuous Glucose Collection Specialist (Compell[employer]Style Adriana 2 Reeders) device 1 Device, Does not apply, 4 [...] nursing note reviewed. Exam conducted with a telegraph service rater present. Vitals: Estimated body mass index is [...] by Belen Oconnell LPN on behalf of: You Ramirez DO documented in this encounter [facility] 11-15-2023 History of Presen t [...] Date Noted Attention deficit hyperactivity disorder (ADHD) ([facility]) 09/15/2022 Cervicalgia 09/15/2022 Chronic fatigue 09/15/2022 Chronic tension-type headache, not intractable 09/15/2022 Generalized anxiety disorder ([facility]) 09/15/2022 HPV (human papilloma virus) infection 09/15/2022 Large breasts 09/15/2022 LGSIL on Pap smear of cervix 09/15/2022 Migraine with aura and without status migrainosus, not intractable ([facility]) 09/15/2022 Missed period 09/15/2022 Moderate recurrent major depression (HCC) ([facility]) 09/15/2022 Other chronic pain 09/15/2022 Radicular pain 09/15/2022 Vitamin D deficiency 09/15/2022 History of miscarriage 06/22/2023 Positive urine test 06/22/2023 Resolved Ambulatory Problems Diagnosis Date Noted No Resolved Ambulatory Problems Past Medical History: Diagnosis Date ADHD (attention deficit hyperactivity disorder) (CMS/HCC) ADHD (attention deficit hyperactivity disorder) ([facility]) Ankle pain, left Anxiety with depression Epidermal [...] disorder) (CMS/HCC) ADHD (attention deficit hyperactivity disorder) ([facility]) Ankle pain, left Anxiety with depression [...] or undercooked meat, and stay away from [facility]. Patient has been consulted regarding any [...] Iveth Hood PA-C documented in this encounter [facility] 03-01-2021 Evaluation note Encounter Date Diagnosis Assessment Notes Feb, Closed fracture of capitellum of left humerus with routine healing (ICD-10 - S42.452D) MRI reviewed with patient as healing fractures within the elbow. 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 Instructed [...] M24.022) Feb, Pre-op exam (ICD-10 - Z01.818) [employer] Other Evaluation note* Diagnosis Second trimester state, [...] with dates [facility] Diagnosis Third trimester state, incidental 37 weeks gestation of Encounter for wellness examination in adult Advance directive discussed with patient [facility] Diagnosis Encounter for wellness examination in adult- Primary Advance directive discussed with patient Screening for lipid disorders [facility] N[facility]ative - Reported* Type Description Date Medical History ADHD [employer] Other Summary Purpose Family History No Family [...] DATE CREATED AUTHOR AUTHOR'S ORGANIZ ATION 10/06/2021 [facility] DATE CREATED AUTHOR AUTHOR'S ORGANIZ ATION 06/08/2022 [facility] DATE CREATED AUTHOR AUTHOR'S ORGANIZ ATION 02/06/2024 [facility] DATE CREATED AUTHOR AUTHOR'S ORGANIZ ATION 04/22/2024 [facility] dical Specialists EPIC REASON FOR VISIT (unrecogniz ed section and content) Reason Comments Routine Visit Reason Comments Routine Visit STI Screening Reason Comments Annual Exam Care Teams (unrecognized sec tion and content) Member Service Specialist Relationship Specialty Start Date End Date Emily Alfaro DO [address] [place] [address] PCP - General Family Medicine 09/14/22 Member Service Specialist Relationship Specialty Start Date End Date Emily Alfaro DO [address] [place] [address] PCP - General Family Medicine 09/14/22 Member Service Specialist Relationship Specialty Start Date End Date Emily Alfaro DO [address] [place] [address] PCP - General Family Medicine 09/14/22 Member Service Specialist Relationship Specialty Start Date End Date Emily Alfaro DO [address] [place] [address] PCP - General Family Medicine 09/14/22 Member Service Specialist Relationship Specialty Start Date End Date Emily Alfaro DO [address] [place] [address] PCP - General Family Medicine 09/14/22 Member Service Specialist Relationship Specialty Start Date End Date Emily Alfaro DO [address] [place] [address] PCP - General Family Medicine 09/14/22 Member Service Specialist Relationship Specialty Start Date End Date Emily Alfaro DO [address] [place] [address] PCP - General Family Medicine 09/14/22 Member Service Specialist Relationship Specialty Start Date End Date Emily Alfaro DO [address] [place] [address] PCP - General Family Medicine 09/14/22 Member Service Specialist Relationship Specialty Start Date End Date Emily Alfaro DO [address] [place] [address] PCP - General Family Medicine 09/14/22 Member Service Specialist Relationship Specialty Start Date End Date Emily Alfaro DO [address] [place] [address] PCP - General Family Medicine 09/14/22 Member Service Specialist Relationship Specialty Start Date End Date Emily Alfaro DO [address] [place] [address] PCP - General Family Medicine 09/14/22 Member Service Specialist Relationship Specialty Start Date End Date Emily Alfaro DO [address] [place] [address] PCP - General Family Medicine 09/14/22 Member Service Specialist Relationship Specialty Start Date End Date Emily Alfaro DO [address] [place] [address] PCP - General Family Medicine 09/14/22 Member Service Specialist Relationship Specialty Start Date End Date Emily Alfaro DO [address] [place] [address] PCP - General Family Medicine 09/14/22 Member Service Specialist Relationship Specialty Start Date End Date Emily Alfaro DO [address] [place] [place] [address] PCP - General Family Medicine 09/14/22 Member Service Specialist Relationship Specialty Start Date End Date Emily Alfaro DO [address] [place] [address] PCP - General Family Medicine 09/14/22 FOR [...] PRIMARY CLINICAL RECORDS. [facility] [employer] [facility]. provides no warranty or guarantee of the accuracy or completeness of information in this document.
[2024-04-24 08:25] VITALS: BP 118/75; PULSE 88
== END 2024-04-24 09:07 | disposition home or self-care (01) ==
LOC: US 00:20 → FBC 08:05
PROVIDERS: PCP Family Medicine; Visit Provider Obstetrics & Gynecology
DX: Z34.93 Encounter for supervision of normal pregnancy, unspecified, third trimester (principal); Z86.32 Personal history of gestational diabetes; Z3A.38 38 weeks gestation of pregnancy
CPT/HCPCS: 76818

== ENCOUNTER 2024-05-08 07:53 | Outpatient (OUT) | payer OTHER, SELFPAY ==
--- NOTE | 2024-05-08 | US_ITS ---
[address] [address] Patient Name: DANYELL ROSENBERG MRN: [id number] date: 1985 Sex: F Assigned Patient Location: [facility] Current Patient Location: Accession/Order Number: [id number] Exam Date: 05/08/2024 13:16 Report Date: 05/08/2024 13:18 At the request of: ROGERS HODGE DO Procedure: US OB BPP w non-stress Biophysical profile. Reason for exam: Gestational age 40 weeks 4 days. COMPARISON: BPP 04/24/2024. TECHNIQUE: Transabdominal imaging of the gravid uterus was obtained. FINDINGS: Splicer Operator reports the biophysical profile is 8 out of 8. GALINA is normal at 12.9 cm. heart rate 141 bpm. US/US OB BPP w non-stress IMPRESSION: BPP 8 out of 8. Correlation with NST is recommended. Impression dictated by: Luis Villanueva Jr., D.O.05/08/2024 1:18 PM Dictation Location: [email or web address] Electronically authenticated by: [id number] Y Date: 05/08/2024 13:18
--- OUTSIDE RECORDS SUMMARY | 2024-05-08 08:08 | XMS_ITS | CCD ---
Author Organization [facility] CliniSym[facility] Care Team Providers Care Lean Consultant Name Role Phone HUBER LUNDBERG Attending Unavailable TANYA ALFARO Primary Care Unavailable Leandro Robles Unavailable DONNY, DR ROB Feliciano Admitting Unavailable DONNY, DR ROB Feliciano Attending Unavailable DONNY, DR ROB Feliciano Consulting Unavailable MISC, DR JACKSON Primary Care Unavailable GRECHNY ., RAMILA NOBLE Consulting UnavailETHAN Mclaughlin Consulting [...] Unavailable JAMES ., DR MCCLOUD Admitting Unavailable OVID, DR CARIDAD Martin Consulting Unavailable JAMES ., [...] Unavailable MISC, DR JACKSON Primary Care Unavailable Emily Alfaro DO Primary Care Provider [phone] SRIDEVI FREITAS Attending Unavailable ELIZABETH, EMILY G Referring Unavailable ELIZABETH, EMILY G Primary Care Unavailable ROB GONZALES Attending Unavailable ELIZABETH, EMILY G Referring Unavailable ELIZABETH, EMILY G Primary Care Unavailable SRIDEVI FREITAS Attending Unavailable ELIZABETH, EMILY G Referring Unavailable ELIZABETH, EMILY G Primary Care Unavailable CHRISTIAN, ROB John Attending Unavailable ELIZABETH, EMILY G Referring Unavailable ELIZABETH, EMILY G Primary Care Unavailable CHRISTIAN, ROB John Attending Unavailable ELIZABETH, EMILY G Referring Unavailable ELIZABETH, EMILY G Primary Care Unavailable CHRISTIAN, ROB John Attending Unavailable ELIZABETH, EMILY G Referring Unavailable ELIZABETH, EMILY G Primary Care Unavailable JAMES, YOU Attending Unavailable PARESH, IVETH Attending Unavailable VALDO FENTON Attending Unavailable JAMES, YOU Attending Unavailable JAMES, YOU Attending Unavailable PARESH, IVETH Attending Unavailable JAMES, YOU Attending Unavailable JAMES, YOU Attending Unavailable JAMES, YOU Attending Unavailable PARESH, IVETH Attending Unavailable JAMES, YOU Attending Unavailable JAMES, YOU Attending Unavailable PARSEH, IVETH Attending Unavailable Allergies Allergy Classification Reported Allergen(s) Allergy Type Date of Onset Reaction(s) Facility (20 sources) Sertraline Drug Allergy 08-10-2022 Other [facility] Healthcare Work Phone: Medications Current Medications Medication Drug Class(es) Dates Sig (Normalized) Sig (Original) amphetamine aspartate 2.5 mg / amphetamine sulfate 2.5 mg / dextroamphetamine saccharate 2.5 mg / dextroamphetamine sulfate 2.5 mg oral tablet (1 source) Central Nervous System Stimulant take 1 tablet by mouth every twelve hours Adderall 10 MG 1 tablet Orally Twice a day Active Continuous Glucose Callisthenics Instructor (Dexcom G7 Callisthenics Instructor) device (10 sources) Start: 04-10-2024 Continuous Glucose Callisthenics Instructor (Dexcom G7 Callisthenics Instructor) device Indications: History of gestational diabetes 1 each every 14 (fourteen) days 1 each 04/10/2024 Active Continuous Glucose Sensor (Dexcom G7 Sensor) misc (10 sources) Start: 04-10-2024 Continuous Glucose Sensor (Dexcom G7 Sensor) misc Indications: History of gestational diabetes 1 each every 14 (fourteen) days 2 each 11 04/10/2024 Active ergocalciferol 1.25 mg oral capsule (15 sources) Provitamin D2 Compound Start: 02-14-2023 End: 02-14-2024 take 1 capsule by mouth every week ergocalciferol (Vitamin D2) 1.25 MG (33594 UT) capsule Indications: Vitamin D deficiency Take 1 capsule (1.25 mg) by mouth 1 (one) time per week. 14 capsule 3 02/14/2023 02/14/2024 Active Folic Acid (7 sources) take 1 tablet by mouth once daily Folic Acid (FOLATE PO) Take 1 tablet by mouth Daily Active ibuprofen 400 mg oral tablet (1 source) Nonsteroidal Anti-inflammatory Drug take 1 tablet by mouth three times daily at mealtime as needed Ibuprofen 400 MG 1 tablet with food or milk as needed Orally Three times a day Active Iron (7 sources) take 1 tablet by mouth in [...] day Active Probiotic Product (PROBIOTIC DAILY PO) (7 sources) take 2 capsules by mouth once daily Probiotic Product (PROBIOTIC DAILY PO) Take 2 capsules by mouth Daily Pre and Probiotic with Cranberry Active Vitamin D-Vitamin K (VITAMIN K2-VITAMIN D3 PO) (7 sources) take 2 drop(s) by mouth once [...] 04/09/2024 04/21/2024 Discontinued (Therapy completed) Continuous Glucose Callisthenics Instructor (FreeStyle Adriana 2 [place]) device (20 sources) Start: 11-15-2023 End: 04-10-2024 Continuous Glucose Callisthenics Instructor (FreeStyle Adriana 2 [place]) device Indications: History of gestational diabetes 1 Device in the morning and 1 Device at noon and 1 Device in the evening and 1 Device before bedtime. 1 each 11/15/2023 04/10/2024 Discontinued Start: 11-15-2023 Continuous Glu cose Callisthenics Instructor (FreeStyle Adriana 2 [place]) device Indications: History of gestational diabetes 1 [...] [37 weeks gestation of ] 04-17-2024 Episodic Residual codes; unclassified (2 sources) Gestation period, 38 weeks; Translations: [38 weeks gestation of ] 04-24-2024 Episodic Unclassified (2 sources) LOW BACK PAIN, [...] left elbow Onset: 03-01-2021 Resolved: 03-01-2021 Episodic Other and delivery including normal (20 [...] Onset: 06-22-2023 06-22-2023 Episodic Residual codes; unclassified (20 sources) Gestation period, 32 weeks; Translations: [32 weeks gestation of ] Onset: 03-10-2024 Resolved: 04-14-2024 03-10-2024 Episodic Residual codes; unclassified (18 sources) Gestation period, 34 weeks; Translations: [34 [...] UNSPECIFIED; Translations: [LOW BACK PAIN, UNSPECIFIED] Onset: 11-15-2022 Urinary tract infections (1 source) Urinary tract infection, site not specified; Translations: [UTI SITE NOT SPECIFIED] Onset: 02-02-2022 Episodic Viral infection (20 sources) Human papilloma virus infection; Translations: [Papillomavirus as the cause of diseases classified elsewhere] Onset: 09-15-2022 09-15-2022 Episodic Results Test Name Value Interpretation Reference Range Facility US OB BPP W NON-STRESS on 04-24-2024 [place] [address] Ultrasound Report Signed Patient: DANYELL STARR MR#: [id number] : 1985 Acct:[id number] Age/Sex: 38 / F ADM Date: 04/24/24 Loc: US Attending Dr: You Ramirez D.O. Ordering Physician: You Ramirez D.O. Date of Service: 04/24/24 Procedure(s): US OB BPP w non-stress Accession Number(s): [id number] cc: You Ramirez D.O.; VALDO FENTON [place] [address] Patient Name: DANYELL STARR MRN: [id number] date: 1985 Sex: F Assigned Patient Location: Current Patient Location: Accession/Order Number: [id number] Exam Date: 04/24/2024 08:09 Report Date: 04/24/2024 09:26 At the request of: YOU RAMIREZ Procedure: US OB BPP w non-stress EXAMINATION: US OB BPP w non-stress HISTORY: History of gestational diabetes Z34.93 COMPARISON: No relevant comparison available. TECHNIQUE: Ultrasound biophysical profile was performed in the radiology department. non-reactive stress testing was performed by nursing staff in the birthing center. FINDINGS: BREATHING MOVEMENTS: 2 GROSS BODY MOVEMENTS: 2 TONE: 2 QUALITATIVE AMNIOTIC FLUID VOLUME: 2 PRESENTATION: CEPHALIC HEART RATE: 131.71 bpm AMNIOTIC FLUID VOLUME: 15.5 cm GESTATIONAL AGE: 38w5d US/US OB BPP w non-stress IMPRESSION: Total biophysical profile score: 8 Electronically authenticated by: CARIDAD DOBSON Date: 04/24/2024 09:26 Dictated By: Caridad Dobson M.D. Signed By: 04/24/24928 DD/ 5 TD/TT: Advertising Sales Assistant: [facility] Radiology, Radiologist, MD - 04/24/2024 [place] [address] Ultrasound Report Signed Patient: DANYELL STARR MR#: [id number] : 1985 Acct:[id number] Age/Sex: 38 / F ADM Date: 04/24/24 Loc: US Attending Dr: You Ramirez D.O. Ordering Physician: You Ramirez D.O. Date of Service: 04/24/24 Procedure(s): US OB BPP w non-stress Accession Number(s): [id number] cc: You Ramirez D.O.; VALDO FENTON [place] [id number] Patient Name: DANYELL STARR MRN: [facility]:[id number] date: 1985 Sex: F Assigned Patient Location: US Current Patient Location: US Accession/Order Number: [id number] Exam Date: 04/24/2024 08:09 Report Date: 04/24/2024 09:26 At the request of: YOU RAMIREZ Procedure: US OB BPP w non-stress EXAMINATION: US OB BPP w non-stress HISTORY: History of gestational diabetes Z34.93 COMPARISON: No relevant comparison available. TECHNIQUE: Ultrasound biophysical profile was performed in the radiology department. non-reactive stress testing was performed by nursing staff in the birthing center. FINDINGS: BREATHING MOVEMENTS: 2 GROSS BODY MOVEMENTS: 2 TONE: 2 QUALITATIVE AMNIOTIC FLUID VOLUME: 2 PRESENTATION: CEPHALIC HEART RATE: 131.71 bpm AMNIOTIC FLUID VOLUME: 15.5 cm GESTATIONAL AGE: 38w5d US/US OB BPP w non-stress IMPRESSION: Total biophysical profile score: 8 Electronically authenticated by: CARIDAD DOBSON Date: 04/24/2024 09:26 Dictated By: Caridad Dobson M.D. Signed By: 04/24/24928 DD/ 5 TD/TT: Advertising Sales Assistant: [facility] Radiology Study observation (narrative) [facility] US OB BPP W NON-STRESS Ordered By: Radiologist Radiology on 04-24-2024 [facility] Work Phone: Urinalysis macro (dipstick) panel (U)on 04-24-2024 Bilirubin, UA Negative Negative - 4(70) +++ mg/dL [facility] Blood, UA Negative Negative - 50 Andrew/mcL [facility] Clarity, UA Clear [facility] Color, UA Yellow [facility] Glucose, UA Negative Negative - 2000(110) ++++ mg/dL [facility] Interpretation and review of laboratory results Abnormal [facility] Ketones, UA Negative Negative - 160(16) ++++ mg/dL [facility] Leukocytes, UA Positive Negative - 500+++ Lore/mcL [facility] Comment on above: small Nitrite, UA Negative Negative - Positive [facility] pH, UA 6.5 5 - 9 [facility] Protein, UA Negative Negative - 2000(20) ++++ mg/dL [facility] Spec Grav, UA 1.015 1 - 1.03 [facility] Urobilinogen, UA 0.2 0.2 - 12 mg/dL [facility] US OB FOLLOW UP TRANSABDOMIN AL APPROACHon [...] Weight: 3599 gm (7 lbs, 14 oz (1482-1040 gm) [place] Normal: 3177 gm (4535-6029 gm) [place] Wt%: 85% for 37.7 wks [...] report is generated using voice recognition reporting (Phonetime). On occasion Cognotione erroneously drops words from the report or [...] UA Negative Negative - 4(70) +++ mg/dL [facility] Blood, UA Negative Negative - 50 Andrew/mcL [facility] Clarity, UA Clear [facility] Color, UA Yellow [facility] Glucose, UA Negative Negative - 2000(110) ++++ mg/dL [facility] Interpretation and review of laboratory results Abnormal [facility] Ketones, UA Negative Negative - 160(16) ++++ mg/dL [facility] Leukocytes, UA Trace Negative - 500+++ Lore/mcL [facility] Nitrite, UA Negative Negative - Positive [facility] pH, UA 6 5 - 9 [facility] Protein, UA Trace Negative - 2000(20) ++++ mg/dL [facility] Spec Grav, UA 1.03 1 - 1.03 [facility] Urobilinogen, UA 1.0 0.2 - 12 mg/dL [facility] ALL MISCELLANEOUS TESTon MISCELLANEOUS TEST COMMENT . [facility] Comment on above: Test Ordered: [id number] Strep Gp B Culture+Rflx Strep Gp B Culture+Rflx Negative CB Reference Range: Negative Centers for Disease Control and Prevention (CDC) and [place] [employer] Gynec[employer] (ACOG) guidelines [...] resistance to clindamycin is noted. Performed at: [facility] [id number] Griddle Attendant: Carlos Manuel Bray PhD, Phone: [phone] GROUP BE STREP [id number] Group B Streptococcus Colonization Detection Culture [facility]inal[facility] macro (dipstick) panel (U)on 03-25-2024 Bilirubin, UA Negative Negative - 4(70) +++ mg/dL [facility] Blood, UA Negative Negative - 50 Andrew/mcL [facility] Clarity, UA Clear [facility] Color, UA Yellow [facility] Glucose, UA Negative Negative - 1999(110) ++++ mg/dL [facility] Interpretation and review of laboratory results Abnormal [facility] Ketones, UA Positive Negative - 160(16) ++++ mg/dL [facility] Comment on above: trace Leukocytes, UA Trace Negative - 500+++ Lore/mcL [facility] Nitrite, UA Negative Negative - Positive [facility] pH, UA 6.5 5 - 9 [facility] Protein, UA Positive Negative - 1999(20) ++++ mg/dL [facility] Comment on above: 30mg Spec Grav, UA 1.025 1 - 1.03 [facility] Urobilinogen, UA 1.0 0.2 - 12 mg/dL [facility] Urinalysis macro (dipstick) panel (U)on 03-10-2024 Bilirubin, UA Positive Negative - 4(70) +++ mg/dL [facility] Comment on above: small Blood, UA Negative Negative - 50 Andrew/mcL [facility] Clarity, UA Clear [facility] Color, UA Yellow [facility] Glucose, UA Negative Negative - 1999(110) ++++ mg/dL [facility] Interpretation and review of laboratory results Abnormal [facility] Ketones, UA Positive Negative - 160(16) ++++ mg/dL [facility] Comment on above: trace Leukocytes, UA Negative Negative - 500+++ Lore/mcL [facility] Nitrite, UA Negative Negative - Positive [facility] pH, UA 6 5 - 9 [facility] Protein, UA Positive Negative - 1999(20) ++++ mg/dL [facility] Comment on above: 30 Spec Grav, UA 1.025 1 - 1.03 [facility] Urobilinogen, UA 1.0 0.2 - 12 mg/dL [facility] MLR HEMOGLOBIN A1Con 024 Glucose [Mass/Vol] 114 mg/dL [facility] HbA1c (Bld) [Mass fraction] 5.6 % 4.5 - 6.2 % [facility] Comment on above: ADA RECOMMENDED LIMI T 4.0 - 6.0 ADA THERAPEUTIC TARGET < 7.0 ACTION SUGGESTED > 7.0 [facility] Urinalysis macro (dipstick) panel (U)on 02-20-2024 Bilirubin, UA Positive Negative - 4(70) +++ mg/dL [facility] Comment on above: small Blood, UA Negative Negative - 50 Andrew/mcL [facility] Clarity, UA Clear [facility] Color, UA Yellow [facility] Glucose, UA Negative Negative - 1999(110) ++++ mg/dL [facility] Interpretation and review of laboratory results Abnormal [facility] Ketones, UA Positive Negative - 160(16) ++++ mg/dL [facility] Comment on above: trace Leukocytes, UA Negative Negative - 500+++ Lore/mcL [facility] Nitrite, UA Negative Negative - Positive [facility] pH, UA 6 5 - 9 [facility] Protein, UA Trace Negative - 1999(20) ++++ mg/dL [facility] Spec Grav, UA 1.03 1 - 1.03 [facility] Urobilinogen, UA 1.0 0.2 - 12 mg/dL [facility] Urinalysis macro (dipstick) panel (U)on 01-10-2024 Bilirubin, UA Negative Negative - 4(70) +++ mg/dL [facility] Blood, UA Negative Negative - 50 Andrew/mcL [facility] Clarity, UA Clear [facility] Color, UA Yellow [facility] Glucose, UA Negative Negative - 1999(110) ++++ mg/dL [facility] Interpretation and review of laboratory results Normal [facility] Ketones, UA Negative Negative - 160(16) ++++ mg/dL [facility] Leukocytes, UA Negative Negative - 500+++ Lore/mcL [facility] Nitrite, UA Negative Negative - Positive [facility] pH, UA 5.5 5 - 9 [facility] Protein, UA Negative Negative - 1999(20) ++++ mg/dL [facility] Spec Grav, UA 1.02 1 - 1.03 [facility] Urobilinogen, UA 1.0 0.2 - 12 mg/dL [facility] URETHRITIS/DISCHARGE PLUS VA GINITIS (HTRX)on 12-14-2023 ATOPOBIUM VAGINAE 0.000 [facility] ATOPOBIUM VAGINAE Not detected [facility] BVAB 2,3 (BACTERIAL VAGINOSIS ASSOCIATED BACTERIA 2, 3); MOBILUNCUS SPP 26.743 Abnormal [facility] BVAB 2,3 (BACTERIAL VAGINOSIS ASSOCIATED BACTERIA 2, 3); MOBILUNCUS SPP Detected Abnormal [facility] SANJIV ALBICANS, PARAPSILOSIS, TROPICALIS 0.000 [facility] SANJIV ALBICANS, PARAPSILOSIS, TROPICALIS Not detected [facility] SANJIV GLABRATA 0.000 [facility] SANJIV GLABRATA Not detected [facility] SANJIV KRUSEI 0.000 [facility] SANJIV KRUSEI Not detected [facility] CHLAMYDIA TRACHOMATIS 0.000 [facility] CHLAMYDIA TRACHOMATIS Not detected [facility] GARDNERELLA VAGINALIS 0.000 [facility] GARDNERELLA VAGINALIS Not detected [facility] Interpretation and review of laboratory results Abnormal [facility] MEGASPHAERA (TYPES 1, 2) 0.000 [facility] MEGASPHAERA (TYPES 1, 2) Not detected [facility] MYCOPLASMA GENITALIUM 0.000 [facility] MYCOPLASMA GENITALIUM Not detected [facility] NEISSERIA GONORRHOEAE 0.000 [facility] NEISSERIA GONORRHOEAE Not detected [facility] TRICHOMONAS VAGINALIS 0.000 [facility] TRICHOMONAS VAGINALIS Not detected [facility] Urinalysis macro (dipstick) panel (U)on 12-13-2023 Bilirubin, UA Negative Negative - (70) +++ mg/dL [facility] Blood, UA Negative Negative - 50 Andrew/mcL [facility] Clarity, UA Clear [facility] Color, UA Yellow [facility] Glucose, UA Negative Negative - 1999(110) ++++ mg/dL [facility] Interpretation and review of laboratory results Abnormal [facility] Ketones, UA Positive Negative - 160(16) ++++ mg/dL [facility] Comment on above: trace Leukocytes, UA Negative Negative - 500+++ Lore/mcL [facility] Nitrite, UA Negative Negative - Positive [facility] pH, UA 6.5 5 - 9 [facility] Protein, UA Negative Negative - 1999(20) ++++ mg/dL [facility] Spec Grav, UA 1.025 1 - 1.03 [facility] Urobilinogen, UA 1.0 0.2 - 12 mg/dL [facility] Urinalysis macro (dipstick) panel (U)on 11-15-2023 Bilirubin, UA Negative Negative - 4(70) +++ mg/dL [facility] Blood, UA Negative Negative - 50 Andrew/mcL [facility] Clarity, UA Clear [facility] Color, UA Yellow [facility] Glucose, UA Negative Negative - 1999(110) ++++ mg/dL [facility] Interpretation and review of laboratory results Normal [facility] Ketones, UA Negative Negative - 160(16) ++++ mg/dL [facility] Leukocytes, UA Negative Negative - 500+++ Lore/mcL [facility] Nitrite, UA Negative Negative - Positive [facility] pH, UA 5.5 5 - 9 [facility] Protein, UA Negative Negative - 1999(20) ++++ mg/dL [facility] Spec Grav, UA 1.020 1 - 1.03 [facility] Urobilinogen, UA 1.0 0.2 - 12 mg/dL [facility] ALL CBC WITH AUTO DIFFon BASOPHILS ABSOLUTE AUTO 0.0 [facility] Basophils/100 WBC (Bld) 0.4 % 0.2 - 2.0 % [facility] Eosinophils/100 WBC (Bld) 3.0 % 0.9 - 7.0 % [facility] Erythrocyte distribution width (RBC) [Ratio] 16.1 % High 11.0 - 15.0 % [facility] Hematocrit (Bld) [Volume fraction] 36.3 % 36.0 - 48.0 % [facility] Hemoglobin (Bld) [Mass/Vol] 11.4 g/dL Low 12.0 - 16.0 g/dL [facility] IMMATURE GRANULOCYTES ABS AUTO 0.03 [facility] Immature granulocytes/100 WBC (Bld) 0.3 % 0.0 - 0.5 % [facility] Interpretation and review of laboratory results Abnormal [facility] LYMPHOCYTES ABSOLUTE AUTO 2.2 [facility] Lymphocytes/100 WBC (Bld) 23.6 % 20.5 - 60.0 % [facility] MCH (RBC) [Entitic mass] 26.0 pg Low 26.7 - 34.0 pg [facility] MCHC (RBC) [Mass/Vol] 31.4 g/dL 29.9 - 35.2 g/dL [facility] MCV (RBC) [Entitic vol] 82.9 fL 81.0 - 99.0 fL [facility] MONOCYTES ABSOLUTE AUTO 0.5 [facility] Monocytes/100 WBC (Bld) 5.1 % 1.7 - 12.0 % [facility] NEUTROPHILS ABSOLUTE AUTO 6.2 [facility] Neutrophils/100 WBC (Bld) 67.6 % 43.0 - 75.0 % [facility] Platelet mean volume (Bld) [Entitic vol] 11.0 fL 9.5 - 13.5 fL [facility] EO # 0.3 [facility] PLT 271 [facility] RBC 4.38 [facility] WBC 9.2 [facility] Cytology Cervical or vaginal smear or scraping studyon 03-08-2023 [facility] CHLAMYDIA/GONOCOCCUS JESE ( AB/URINE/PAPon 06-01-2022 Chlamydia trachomatis, JESE Negative Normal Negative [facility] Comment on above: Performed By: #### P TT, PT #### [facility] [address], [place] [address] Dr. Todd Moreno Neisseria gonorrhoeae, JESE Negative Normal Negative [facility] Comment on above: Performed By: #### P TT, PT #### [facility] [address], [place] [address] Dr. Todd Moreno VAGINITIS/VAGINOSIS DNA PROB Shaheed 06-01-2022 Sanjiv species Negative Normal Negative [facility] Comment on above: Performed By: #### P TT, PT #### [facility] [address] [place] [address] [address] Todd Moreno Gardnerella vaginalis Negative Normal Negative [facility] Comment on above: Performed By: #### P TT, PT #### [facility] [address] [place] [address] [address] Todd Moreno Trichomonas vaginalis Negative Normal Negative [facility] Comment on above: Performed By: #### P TT, PT #### [facility] [address] [place] [address] [address] Todd Moreno HEP B SURFACE ANTIGEN SCREEN on 03-22-2022 HBsAg Screen Negative Normal Negative [facility] Comment on above: Performed By: #### H BSANS #### [facility] [address] [place] [address] Dr. Todd Moreno HEPATITIS C VIRUS AB W/ REFL EX QUANTon 03-22-2022 HCV AB 0.1 s/co ratio Normal 0.0-0.9 [facility] Comment on above: Performed By: #### P TT, PT #### [facility] [address] [place] [address] [address] Todd Moreno Interpretation: Comment Normal [facility] Comment on above: Result Comment: Nega tive Not infected with HCV, unless recent infection is suspected or other evidence exists to indicate HCV infection. Performed By: #### P TT, PT #### [facility] [address] [place] [address] Dr. Todd Moreno HIV 1 AND 2 WITH REFLEXon HIV Screen 4th Generation wRfx Non-Reactive Normal Non Reactive [facility] Comment on above: Result Comment: HIV Negative HIV-1/HIV-2 antibodies and HIV-1 p24 antigen were NOT detected. There is no laboratory evidence of HIV infection. Performed By: #### H IV12 #### [facility] [address] [place] [address] Dr. Todd Moreno RPR QUANTon 03-22-2022 Rapid Plasma Reagin, Quant Non-Reactive Normal NonRea<1:1 [facility] Comment on above: Result [...] utilized, such as Treponema pallidum (Syphilis) Screening [place] (190726) or Rapid Plasma Reagin (RPR) Test With Reflex to Quantitative RPR and Confirmatory Treponema pallidum Antibodies (191724). Performed By: #### R PRQ #### [facility] [address] [place] [address] Dr. Todd Moreno RUBELLA AB IGGon 03-22-2022 Rubella Antibodies, IgG 5.11 index Normal Immune >0.99 [facility] Comment on above: Result Comment: Non- immune <0.90 Equivocal 0.90 - 0.99 Immune >0.99 Performed By: #### R PRQ #### [facility] [address] [place] [address] Dr. Todd Moreno CBC AUTO DIFFon 03-20-2022 BASO # 0.0 103/ul Normal 0.0-0.1 [facility] Comment on above: Performed By: #### P TT, PT #### [facility] [address] [place] [address] Dr. Todd Moreno Basophils/100 WBC (Bld) 0.3 % Normal 0.2-2.0 [facility] Comment on above: Performed By: #### P TT, PT #### [facility] [address] [place] [address] Dr. Todd Moreno EO # 0.1 103/ul Normal 0.0-0.7 [facility] Comment on above: Performed By: #### P TT, PT #### [facility] [address] [place] [address] Dr. Todd Moreno Eosinophils/100 WBC (Bld) 1.0 % Normal 0.9-7.0 [facility] Comment on above: Performed By: #### P TT, PT #### [facility] [address] [place] [address] Dr. Todd Moreno Erythrocyte distribution width (RBC) [Ratio] 14.4 % Normal 11.0-15.0 [facility] Comment on above: Performed By: #### P TT, PT #### [facility] [address] [place] [address] Dr. Todd Moreno Hematocrit (Bld) [Volume fraction] 38.2 % Normal 36.0-48.0 [facility] Comment on above: Performed By: #### P TT, PT #### [facility] [address] [place] [address] Dr. Todd Moreno Hemoglobin (Bld) [Mass/Vol] 12.2 g/dL Normal 12.0-16.0 [facility] Comment on above: Performed By: #### P TT, PT #### [facility] [address] [place] [address] Dr. Todd Moreno IG # 0.03 10e3/ul Normal 0.00-0.03 [facility] Comment on above: Performed By: #### P TT, PT #### [facility] [address] [place] [address] Dr. Todd Moreno IG % 0.3 % Normal 0.0-0.5 [facility] Comment on above: Performed By: #### P TT, PT #### [facility] [address] [place] [address] Dr. Todd Moreno LYMPH # 1.9 103/ul Normal 1.2-3.8 [facility] Comment on above: Performed By: #### P TT, PT #### [facility] [address] [place] [address] Dr. Todd Moreno Lymphocytes/100 WBC (Bld) 19.0 % Critically low 20.5-60.0 [facility] Comment on above: Performed By: #### P TT, PT #### [facility] [address] [place] [address] Dr. Todd Moreno MANUAL DIFF REQ NO Normal [facility] Comment on above: Performed By: #### P TT, PT #### [facility] [address] [place] [address] Dr. Todd Moreno MCH (RBC) [Entitic mass] 26.1 pg Critically low 26.7-34.0 [facility] Comment on above: Performed By: #### P TT, PT #### [facility] [address] [place] [address] Dr. Todd Moreno MCHC (RBC) [Mass/Vol] 31.9 g/dL Normal 29.9-35.2 [facility] Comment on above: Performed By: #### P TT, PT #### [facility] [address] [place] [address] Dr. Todd Moreno MCV (RBC) [Entitic vol] 81.6 fL Normal 81.0-99.0 [facility] Comment on above: Performed By: #### P TT, PT #### [facility] [address] [place] [address] Dr. Todd Moreno MONO # 0.4 103/ul Normal 0.3-0.8 [facility] Comment on above: Performed By: #### P TT, PT #### [facility] [address] [place] [address] Dr. Todd Moreno Monocytes/100 WBC (Bld) 4.4 % Normal 1.7-12.0 [facility] Comment on above: Performed By: #### P TT, PT #### [facility] [address] [place] [address] Dr. Todd Moreno NEUT # 7.5 103/ul Critically high 1.4-6.5 [facility] Comment on above: Performed By: #### P TT, PT #### [facility] [address] [place] [address] Dr. Todd Moreno Neutrophils/100 WBC (Bld) 75.0 % Normal 43.0-75.0 [facility] Comment on above: Performed By: #### P TT, PT #### [facility] [address] [place] [address] Dr. Todd Moreno Platelet mean volume (Bld) [Entitic vol] 10.4 fL Normal 9.5-13.5 [facility] Comment on above: Performed By: #### P TT, PT #### [facility] [address] [place] [address] Dr. Todd Moreno PLT 302 103/ul Normal 150-450 [facility] Comment on above: Performed By: #### P TT, PT #### [facility] [address] [place] [address] Dr. Todd Moreno RBC 4.68 106/ul Normal 4.20-5.40 [facility] Comment on above: Performed By: #### P TT, PT #### [facility] [address] [place] [address] Dr. Todd Moreno WBC 10.1 103/ul Normal 4.0-11.0 [facility] Comment on above: Performed By: #### P TT, PT #### [facility] [address] [place] [address] Dr. Todd Moreno CULTURE URINEon 03-20-2022 CULTURE URINE Culture Observations : MODERATE GROWTH OF MIXED GENITAL LORA. NO POTENTIAL PATHOGENS SEEN. Normal [facility] Comment on above: Performed By: #### P TT, PT #### [facility] [address] [place] [address] Dr. Todd Moreno GLYCOHEMOGLOBIN A1Con 2022 ADA RECOMMENDATION SEE BELOW Normal [facility] Comment on above: Result Comment: ADA RECOMMENDED LIMIT 4.0 - 6.0 ADA THERAPEUTIC TARGET < 7.0 ACTION SUGGESTED > 7.0 Performed By: #### A 1C #### [facility] [address] [place] [address] Dr. Todd Moreno Glucose [Mass/Vol] 105 mg/dL Normal [facility] Comment on above: Performed By: #### A 1C #### [facility] [address] [place] [address] Dr. Todd Moreno HbA1c (Bld) [Mass fraction] 5.3 % Normal 4.5-6.2 [facility] Comment on above: Performed By: #### A 1C #### [facility] [address] [place] [address] Dr. Todd Moreno BENJAMIN BOX TEST PT SEND OUTo n 03-20-2022 SENT TO REF LAB 03/20/2022 Normal [facility] Comment on above: Performed By: #### P TT, PT #### [facility] [address] [address] [address] Todd Moreno TYPE AND SCREENon 03-20-2022 TYPE AND SCREEN Negative Normal [facility] Comment on above: Performed By: #### P TT, PT #### [facility] [address] [address] [address] Todd Moreno US PREG TVon 02-24-2022 [...] by: CARIDAD DOBSON Date: 2022-02-24 16:16 Normal [facility] CULTURE URINEon 02-03-2022 CULTURE URINE [...] F Oxacillin 0.5 S F Normal [facility] Comment on above: Performed By: #### P TT, PT #### [facility] [address] [address] [address] Todd Moreno US PREG TVon 02-01-2022 [...] ETHAN MERCER Date: 2022-01-31 22:05 Normal [facility] CBC AUTO DIFFon 01-31-2022 BASO # 0.1 103/ul Normal 0.0-0.1 [facility] Comment on above: Performed By: #### P TT, PT #### [facility] [address] [place], [place] [address] Dr. Todd Moreno Basophils/100 WBC (Bld) 0.8 % Normal 0.2-2.0 [facility] Comment on above: Performed By: #### P TT, PT #### [facility] [address] [place], [place] [address] Dr. Todd Moreno EO # 0.5 103/ul Normal 0.0-0.7 [facility] Comment on above: Performed By: #### P TT, PT #### [facility] [address] [place] [address] Dr. Todd Moreno Eosinophils/100 WBC (Bld) 5.4 % Normal 0.9-7.0 [facility] Comment on above: Performed By: #### P TT, PT #### [facility] [address] [place] [address] Dr. Todd Moreno Erythrocyte distribution width (RBC) [Ratio] 15.0 % Normal 11.0-15.0 [facility] Comment on above: Performed By: #### P TT, PT #### [facility] [address] [place] [address] Dr. Todd Moreno Hematocrit (Bld) [Volume fraction] 34.3 % Critically low 36.0-48.0 [facility] Comment on above: Performed By: #### P TT, PT #### [facility] [address] [place] [address] Dr. Todd Moreno Hemoglobin (Bld) [Mass/Vol] 11.2 g/dL Critically low 12.0-16.0 [facility] Comment on above: Performed By: #### P TT, PT #### [facility] [address] [place] [address] Dr. Todd Moreno IG # 0.02 10e3/ul Normal 0.00-0.03 [facility] Comment on above: Performed By: #### P TT, PT #### [facility] [address] [place] [address] Dr. Todd Moreno IG % 0.2 % Normal 0.0-0.5 [facility] Comment on above: Performed By: #### P TT, PT #### [facility] [address] [place] [address] Dr. Todd Moreno LYMPH # 2.7 103/ul Normal 1.2-3.8 [facility] Comment on above: Performed By: #### P TT, PT #### [facility] [address] [place] [address] Dr. Todd Moreno Lymphocytes/100 WBC (Bld) 29.9 % Normal 20.5-60.0 [facility] Comment on above: Performed By: #### P TT, PT #### [facility] [address] [place] [address] Dr. Todd Moreno MANUAL DIFF REQ NO Normal [facility] Comment on above: Performed By: #### P TT, PT #### [facility] [address] [place] [address] Dr. Todd Moreno MCH (RBC) [Entitic mass] 26.7 pg Normal 26.7-34.0 [facility] Comment on above: Performed By: #### P TT, PT #### [facility] [address] [place] [address] Dr. Todd Moreno MCHC (RBC) [Mass/Vol] 32.7 g/dL Normal 29.9-35.2 [facility] Comment on above: Performed By: #### P TT, PT #### [facility] [address] [place] [address] Dr. Todd Moreno MCV (RBC) [Entitic vol] 81.7 fL Normal 81.0-99.0 [facility] Comment on above: Performed By: #### P TT, PT #### [facility] [address] [place] [address] Dr. Todd Moreno MONO # 0.5 103/ul Normal 0.3-0.8 [facility] Comment on above: Performed By: #### P TT, PT #### [facility] [address] [place] [address] Dr. Todd Moreno Monocytes/100 WBC (Bld) 5.7 % Normal 1.7-12.0 [facility] Comment on above: Performed By: #### P TT, PT #### [facility] [address] [place] [address] Dr. Todd Moreno NEUT # 5.2 103/ul Normal 1.4-6.5 [facility] Comment on above: Performed By: #### P TT, PT #### [facility] [address] [place] [address] Dr. Todd Moreno Neutrophils/100 WBC (Bld) 58.0 % Normal 43.0-75.0 [facility] Comment on above: Performed By: #### P TT, PT #### [facility] [address] [place] [address] Dr. Todd Moreno Platelet mean volume (Bld) [Entitic vol] 10.4 fL Normal 9.5-13.5 [facility] Comment on above: Performed By: #### P TT, PT #### [facility] [address] [place] [address] Dr. Todd Moreno PLT 270 103/ul Normal 150-450 [facility] Comment on above: Performed By: #### P TT, PT #### [facility] [address] [place] [address] Dr. Todd Moreno RBC 4.20 106/ul Normal 4.20-5.40 [facility] Comment on above: Performed By: #### P TT, PT #### [facility] [address] [place] [address] Dr. Todd Moreno WBC 9.1 103/ul Normal 4.0-11.0 [facility] Comment on above: Performed By: #### P TT, PT #### [facility] [address] [place] [address] Dr. Todd Moreno ER URINE PROFILEon 2 Bilirubin Ql (U) Negative Normal NEGATIVE [facility] Comment on above: Performed By: #### P TT, PT #### [facility] [address] [place] [address] Dr. Todd Moreno Clarity (U) CLEAR Normal CLEAR [facility] Comment on above: Performed By: #### P TT, PT #### [facility] [address] [place] [address] Dr. Todd Moreno Color (U) YELLOW Normal YELLOW [facility] Comment on above: Performed By: #### P TT, PT #### [facility] [address] [place] [address] Dr. Todd Moreno ERUAHD A micrscopic examination will be performed if indicated. Normal [facility] Comment on above: Performed By: #### P TT, PT #### [facility] [address] [address] [address] Todd Moreno Glucose Ql (U) Negative Normal NEGATIVE [facility] Comment on above: Performed By: #### P TT, PT #### [facility] [address] [address] [address] Todd Moreno Hemoglobin Ql (U) TRACE-INTACT Abnormal NEGATIVE [facility] Comment on above: Performed By: #### P TT, PT #### [facility] [address] [place] [address] Dr. Todd Moreno Ketones Ql (U) Negative Normal NEGATIVE [facility] Comment on above: Performed By: #### P TT, PT #### [facility] [address] [place] [address] Dr. Todd Moreno LEUKOCYTES SMALL Abnormal NEGATIVE [facility] Comment on above: Performed By: #### P TT, PT #### [facility] [address] [place] [address] Dr. Todd Moreno Nitrite Ql (U) Negative Normal NEGATIVE [facility] Comment on above: Performed By: #### P TT, PT #### [facility] [address] [place] [address] Dr. Todd Moreno pH (U) 6.5 [pH] Normal 5-9 [facility] Comment on above: Performed By: #### P TT, PT #### [facility] [address] [place] [address] Dr. Todd Moreno SPEC GRAVITY 1.015 Normal 1.005-<=1.025 [facility] Comment on above: Performed By: #### P TT, PT #### [facility] [address] [place] [address] Dr. Todd Moreno UA PROTEIN Negative Normal NEGATIVE/ TRACE [facility] Comment on above: Performed By: #### P TT, PT #### [facility] [address] [place] [address] Dr. Todd Moreno UR MICRO IND INDICATED Normal [facility] Comment on above: Performed By: #### P TT, PT #### [facility] [address] [place] [address] Dr. Todd Moreno Urobilinogen Qn (U) 0.2 {Tiffany'U}/dL Normal 0.2 - 1. 0 [facility] Comment on above: Performed By: #### P TT, PT #### [facility] [address] [place] [address] Dr. Todd Moreno LIPASEon 01-31-2022 Lipase [Catalytic activity/Vol] 123.0 U/L Normal 73.0-393.0 [facility] Comment on above: Performed By: #### C MP, LIPA #### [facility] [address] [place] [address] Dr. Todd Moreno PREG QUANT HCGon 01-31-2022 HCG QUANT 711 mIU/mL Normal [facility] Comment on above: Performed By: #### P TT, PT #### [facility] [address] [place] [address] Dr. Todd Moreno HCG RANGE SEE BELOW Normal [facility] Comment on above: Result Comment: 5-50 0.2-1 WEEK 50-500 1-2 WEEKS 100-5,000 2-3 WEEKS 500-10,000 3-4 WEEKS 1,000-50,000 4-5 WEEKS 10,000-100,000 5-6 WEEKS 15,000-200,000 6-8 WEEKS 10,000-100,000 2-3 MONTHS Performed By: #### P TT, PT #### [facility] [address] [place] [address] Dr. Todd Moreno PROF 14(COMP METB)on 022 Albumin [Mass/Vol] 3.7 g/dL Normal 3.4-5.0 [facility] Comment on above: Performed By: #### C MP, LIPA #### [facility] [address] [place] [address] Dr. Todd Moreno Albumin/Globulin [Mass ratio] 1.0 {ratio} Normal [facility] Comment on above: Performed By: #### C MP, LIPA #### [facility] [address] [place] [address] Dr. Todd Moreno ALP [Catalytic activity/Vol] 80 U/L Normal 46-116 [facility] Comment on above: Performed By: #### C MP, LIPA #### [facility] [address] [place] [address] Dr. Todd Moreno ALT [Catalytic activity/Vol] 23 U/L Normal 14-59 [facility] Comment on above: Performed By: #### C MP, LIPA #### [facility] [address] [place] [address] Dr. Todd Moreno Anion gap [Moles/Vol] 10.2 mmol/L Normal [facility] Comment on above: Performed By: #### C MP, LIPA #### [facility] [address] [place] [address] Dr. Todd Moreno AST [Catalytic activity/Vol] 14 U/L Critically low 15-37 [facility] Comment on above: Performed By: #### C MP, LIPA #### [facility] [address] [place] [address] Dr. Todd Moreno Bilirubin [Mass/Vol] 0.3 mg/dL Normal 0.2-1.0 [facility] Comment on above: Performed By: #### C MP, LIPA #### [facility] [address] [place] [address] Dr. Todd Moreno Calcium [Mass/Vol] 9.1 mg/dL Normal 8.5-10.1 [facility] Comment on above: Performed By: #### C MP, LIPA #### [facility] [address] [place] [address] Dr. Todd Moreno Chloride [Moles/Vol] 104 mmol/L Normal 98-107 [facility] Comment on above: Performed By: #### C MP, LIPA #### [facility] [address] [place] [address] Dr. Todd Moreno CO2 [Moles/Vol] 26.8 mmol/L Normal 21.0-32.0 [facility] Comment on above: Performed By: #### C MP, LIPA #### [facility] [address] [place] [address] Dr. Todd Moreno Creatinine [Mass/Vol] 0.87 mg/dL Normal 0.55-1.02 [facility] Comment on above: Performed By: #### C MP, LIPA #### [facility] [address] [place] [address] Dr. Todd Moreno EGFR-AF SURINAMESE >60 Normal >=60 [facility] Comment on above: Performed By: #### C MP, LIPA #### [facility] [address] [place] [address] Dr. Todd Moreno EGFR-NON AF SURINAMESE >60 Normal >=60 [facility] Comment on above: Performed By: #### C MP, LIPA #### [facility] [address] [place] [address] Dr. Todd Moreno Globulin (S) [Mass/Vol] 3.7 g/dL Normal [facility] Comment on above: Performed By: #### C MP, LIPA #### [facility] [address] [place] [address] Dr. Todd Moreno Glucose [Mass/Vol] 98 mg/dL Normal 74-106 [facility] Comment on above: Performed By: #### C MP, LIPA #### [facility] [address] [place] [address] Dr. Todd Moreno Potassium [Moles/Vol] 4.0 mmol/L Normal 3.5-5.1 [facility] Comment on above: Performed By: #### C MP, LIPA #### [facility] [address] [place] [address] Dr. Todd Moreno Protein [Mass/Vol] 7.4 g/dL Normal 6.4-8.2 [facility] Comment on above: Performed By: #### C MP, LIPA #### [facility] [address] [place] [address] Dr. Todd Moreno Sodium [Moles/Vol] 137 mmol/L Normal 136-145 [facility] Comment on above: Performed By: #### C MP, LIPA #### [facility] [address] [place] [address] Dr. Todd Moreno Urea nitrogen [Mass/Vol] 15.0 mg/dL Normal 7.0-18.0 [facility] Comment on above: Performed By: #### C MP, LIPA #### [facility] [address] [place] [address] Dr. Todd Moreno Urea nitrogen/Creatinine [Mass ratio] 17.2 mg/mg Normal [facility] Comment on above: Performed By: #### C MP, LIPA #### [facility] [address] [place] [address] Dr. Todd Moreno URINE MICROSCOPIC ONLYon BACTERIA SMALL Abnormal NONE SEEN [facility] Comment on above: Performed By: #### P TT, PT #### [facility] [address] [place] [address] Dr. Todd Moreno Bacteria identified Cx Nom (U) INDICATED Normal [facility] Comment on above: Performed By: #### P TT, PT #### [facility] [address] [place] [address] Dr. Todd Moreno CAST NONE SEEN Normal NONE SEEN [facility] Comment on above: Performed By: #### P TT, PT #### [facility] [address] [place] [address] Dr. Todd Moreno Crystals LM Nom (Urine sed) NONE SEEN Normal NONE SEEN [facility] Comment on above: Performed By: #### P TT, PT #### [facility] [address] [place] [address] Dr. Todd Moreno Epithelial cells LM Ql (Urine sed) FEW Abnormal NONE SEEN /RARE [facility] Comment on above: Performed By: #### P TT, PT #### [facility] [address] [place] [address] Dr. Todd Moreno MUCOUS NONE SEEN Normal NONE SEEN [facility] Comment on above: Performed By: #### P TT, PT #### [facility] [address] [place] [address] Dr. Todd Moreno RBC 0-2 Normal 0-2 [facility] Comment on above: Performed By: #### P TT, PT #### [facility] [address] [address] [address] Todd Moreno WBC 10-20 Abnormal NONE SEEN [facility] Comment on above: Performed By: #### P TT, PT #### [facility] [address] [address] [address] Todd Moreno ESTROGENon 10-20-2021 Estrogens, Total 68 pg/mL Normal [facility] Comment on above: Result Comment: Prep ubertal < 40 Female Cycle: 1-10 Days 16 - 328 11-20 Days 34 - 501 21-30 Days 48 - 350 Post-Menopausal 40 - 244 Performed By: #### P TT, PT #### [facility] [address] [address] [address] Todd Moreno ESTRADIOLon 10-16-2021 Estradiol 62.1 pg/mL Normal [facility] Comment on above: Result Comment: Adul t Female: Follicular phase 12.5 - 166.0 Ovulation phase 85.8 - 498.0 Luteal phase 43.8 - 211.0 Postmenopausal <6.0 - 54.7 1st trimester 215.0 - >4300.0 Ramos ECLIA methodology Performed By: #### E STRADI #### [facility] [address] [place] [address] Dr. Todd Moreno FSHon 10-16-2021 FSH 5.6 mIU/mL Normal [facility] Comment on above: Result Comment: Adul t Female: Follicular phase 3.5 - 12.5 Ovulation phase 4.7 - 21.5 Luteal phase 1.7 - 7.7 Postmenopausal 25.8 - 134.8 Performed By: #### P TT, PT #### [facility] [address] [place] [address] Dr. Todd Moreno LUTEINIZING HORMONE (LH)on 0 10-16-2021 LH 12.1 mIU/mL Normal [facility] Comment on above: Result Comment: Adul t Female: Follicular phase 2.4 - 12.6 Ovulation phase 14.0 - 95.6 Luteal phase 1.0 - 11.4 Postmenopausal 7.7 - 58.5 Performed By: #### P TT, PT #### [facility] [address] [address] [address] Todd Moreno CBC AUTO DIFFon 10-15-2021 BASO # 0.0 103/ul Normal 0.0-0.1 [facility] Comment on above: Performed By: #### P TT, PT #### [facility] [address] [place] [address] Dr. Todd Moreno Basophils/100 WBC (Bld) 0.6 % Normal 0.2-2.0 [facility] Comment on above: Performed By: #### P TT, PT #### [facility] [address] [place] [address] Dr. Todd Moreno EO # 0.1 103/ul Normal 0.0-0.7 [facility] Comment on above: Performed By: #### P TT, PT #### [facility] [address] [place] [address] Dr. Todd Moreno Eosinophils/100 WBC (Bld) 2.1 % Normal 0.9-7.0 [facility] Comment on above: Performed By: #### P TT, PT #### [facility] [address] [place] [address] Dr. Todd Moreno Erythrocyte distribution width (RBC) [Ratio] 14.0 % Normal 11.0-15.0 [facility] Comment on above: Performed By: #### P TT, PT #### [facility] [address] [place] [address] Dr. Todd Moreno Hematocrit (Bld) [Volume fraction] 37.0 % Normal 36.0-48.0 [facility] Comment on above: Performed By: #### P TT, PT #### [facility] [address] [place] [address] Dr. Todd Moreno Hemoglobin (Bld) [Mass/Vol] 11.6 g/dL Critically low 12.0-16.0 [facility] Comment on above: Performed By: #### P TT, PT #### [facility] [address] [place] [address] Dr. Todd Moreno IG # 0.01 10e3/ul Normal 0.00-0.03 [facility] Comment on above: Performed By: #### P TT, PT #### [facility] [facility] [address] [place] [address] Dr. Todd Moreno IG % 0.2 % Normal 0.0-0.5 [facility] Comment on above: Performed By: #### P TT, PT #### [facility] [address] [address] [address] Todd Moreno LYMPH # 2.2 103/ul Normal 1.2-3.8 [facility] Comment on above: Performed By: #### P TT, PT #### [facility] [address] [address] [address] Todd Moreno Lymphocytes/100 WBC (Bld) 33.1 % Normal 20.5-60.0 [facility] Comment on above: Performed By: #### P TT, PT #### [facility] [address] [place] [address] Dr. Todd Moreno MANUAL DIFF REQ NO Normal [facility] Comment on above: Performed By: #### P TT, PT #### [facility] [address] [place] [address] Dr. Todd Moreno MCH (RBC) [Entitic mass] 26.3 pg Critically low 26.7-34.0 [facility] Comment on above: Performed By: #### P TT, PT #### [facility] [address] [place] [address] Dr. Todd Moreno MCHC (RBC) [Mass/Vol] 31.4 g/dL Normal 29.9-35.2 [facility] Comment on above: Performed By: #### P TT, PT #### [facility] [address] [place] [address] Dr. Todd Moreno MCV (RBC) [Entitic vol] 83.9 fL Normal 81.0-99.0 [facility] Comment on above: Performed By: #### P TT, PT #### [facility] [address] [address] [address] Todd Moreno MONO # 0.2 103/ul Critically low 0.3-0.8 [facility] Comment on above: Performed By: #### P TT, PT #### [facility] [address] [place] [address] Dr. Todd Moreno Monocytes/100 WBC (Bld) 3.5 % Normal 1.7-12.0 [facility] Comment on above: Performed By: #### P TT, PT #### [facility] [address] [place] [address] Dr. Todd Moreno NEUT # 4.0 103/ul Normal 1.4-6.5 [facility] Comment on above: Performed By: #### P TT, PT #### [facility] [address] [place] [address] Dr. Todd Moreno Neutrophils/100 WBC (Bld) 60.5 % Normal 43.0-75.0 [facility] Comment on above: Performed By: #### P TT, PT #### [facility] [address] [place] [address] Dr. Todd Moreno Platelet mean volume (Bld) [Entitic vol] 10.6 fL Normal 9.5-13.5 [facility] Comment on above: Performed By: #### P TT, PT #### [facility] [address] [place] [address] Dr. Todd Moreno PLT 263 103/ul Normal 150-450 [facility] Comment on above: Performed By: #### P TT, PT #### [facility] [address] [place] [address] Dr. Todd Moreno RBC 4.41 106/ul Normal 4.20-5.40 [facility] Comment on above: Performed By: #### P TT, PT #### [facility] [address] [place] [address] Dr. Todd Moreno WBC 6.6 103/ul Normal 4.0-11.0 [facility] Comment on above: Performed By: #### P TT, PT #### [facility] [address] [place] [address] Dr. Todd Moreno FREE T4on 10-15-2021 Free T4 [Mass/Vol] 1.05 ng/dL Normal 0.76-1.46 [facility] Comment on above: Performed By: #### P TT, PT #### [facility] [address] [place] [address] Dr. Todd Moreno PROTIMEon 10-15-2021 INR Coag (PPP) [Relative time] 1.02 {INR} Normal [facility] Comment on above: Performed By: #### P TT, PT #### [facility] [address] [place] [address] Dr. Todd Moreno INR GUIDELINES SEE BELOW Normal [facility] Comment on above: Result Comment: RAMÓN RED INR: 2.0 - 3.0 CONDITIONS NOT LISTED BELOW 2.5 - 3.5 FOR PROSTHETIC HEART VALVE REPLACEMENT 2.5 - 3.5 RECURRENT THROMBOSIS Performed By: #### P TT, PT #### [facility] [address] [place] [address] Dr. Todd Moreno PT Coag (PPP) [Time] 11.0 s Normal 9.0-11.6 [facility] Comment on above: Performed By: #### P TT, PT #### [facility] [address] [place] [address] Dr. Todd Moreno PTTon 10-15-2021 aPTT Coag (Bld) [Time] 32.4 s Normal 22.3-36.2 [facility] Comment on above: Performed By: #### P TT, PT #### [facility] [address] [place] [address] Dr. Todd Moreno TSHon 10-15-2021 TSH 1.777 uIU/mL Normal 0.358-3.740 [facility] Comment on above: Performed By: #### P TT, PT #### [facility] [address] [place] [address] Dr. Todd Moreno PAP ACOG PANEL 2: 30 to 65on 10-10-2021 . . Normal [facility] Comment on above: Result Comment: Perf ormed at: WB Performed By: #### [id number] #### [facility] [address] [place] [address] Dr. Todd Moreno Age Gdln ACOG Testing 30-65 Normal [facility] Comment on above: Performed By: #### [id number] #### [facility] [address] [place] [address] Dr. Todd Moreno DIAGNOSIS: Comment Normal [facility] Comment on above: Result Comment: NEGA TIVE FOR INTRAEPITHELIAL LESION OR MALIGNANCY. Performed at: WB Performed By: #### [id number] #### [facility] [address] [place] [address] Dr. Todd Moreno HPV Aptima Negative Normal Negative [facility] Comment on above: Result Comment: This nucleic acid amplification test detects fourteen high-risk HPV types (16,18,31,33,35,39,45,51,52,56,58,59,66,68) without differentiation. Performed at: =G Performed By: #### [id number] #### [facility] [address] [place] [address] Dr. Todd Moreno Methodology: Comment Normal [facility] Comment on above: Result Comment: This liquid based ThinPrep(R) pap test was screened with the use of an image guided system. Performed at: WB Performed By: #### [id number] #### [facility] [address] [place] [address] Dr. Todd Moreno Note: Comment Normal [facility] Comment on above: Result Comment: The Pap smear is a screening test designed to aid in the detection of premalignant and malignant conditions of the uterine cervix. It is not a diagnostic procedure and should not be used as the sole means of detecting cervical cancer. Both false-positive and false-negative reports do occur. . Performed at: WB Performed By: #### [id number] #### [facility] [address] [place] [address] Dr. Todd Moreno Performed by: Comment Normal [facility] Comment on above: Result Comment: Magalie Lemus Best Worker (ASCP) Performed at: WB Performed By: #### [id number] #### [facility] [address] [address] [address] Todd Moreno Specimen adequacy: Comment Normal [facility] Comment on above: Result Comment: Sati sfactory for evaluation. Endocervical and/or squamous metaplastic cells (endocervical component) are present. Performed at: WB Performed By: #### [id number] #### [facility] [address] [place] [address] Dr. Todd Moreno COVID-19 Antigenon 2 COVID-19 [...] its performance Corinne Disclaimer characteristic determined by [employer] and Corinne Disclaimer validated at [facility]. This Corinne Disclaimer test has not [...] is terminated or revoked sooner. PERFORMED BY: [place] [address] PATHOLOGIST CHAIR CAR DRIVER JONATHAN SHEPARD M.D. Normal [facility] Comment on above: Performed By: #### S OFIANEG, COVID-19 CORINNE #### [facility] [address] [place], [place] [id number] [facility] HCG,Urineon 03-30-2021 Beta HCG ( test) Ql (U) Negative Normal [facility] Comment on above: Result Comment: PERF ORMED BY: [place] [address] PATHOLOGIST CHAIR CAR DRIVER JONATHAN SHEPARD M.D. Performed By: #### U HCG #### [facility] [address] [place] [address] Corinne Ag Negativeon 03-30-19 Corinne Ag Negative Negative Normal Negative [facility] Comment on above: Result Comment: This is a duplicate Corinne SARS Antigen (KAEL) result to be used for statistical tracking purpose only. PERFORMED BY: [place] [address] PATHOLOGIST CHAIR CAR DRIVER JONATHAN SHEPARD M.D. Performed By: #### S OFIANEG, COVID-19 CORINNE #### [facility] [address] [place] [address] COVID-19 [facility] SARS-CoV-2 (COVID-19) RNA JESE+probe Ql (Unsp spec) Negative Normal Negative [facility] Comment on above: Order Comment: Healt hcare Worker?: N Result Comment: Testing for SARS-CoV-2 by RT-PCR This test was developed and its performance characteristics determined by [employer] and validated at the [facility]. This test has not been FDA [...] is terminated or revoked sooner. PERFORMED BY: [place] [address] PATHOLOGIST CHAIR CAR DRIVER JONATHAN SHEPARD M.D. Performed By: #### C OVID 19 [facility] #### [facility] [address] [place], [place] [id number] [facility] XR elbow LT 2Von 03-01-2021 XR elbow LT 2V [facility] [place] [address] [place] [address] XRay Report Signed Patient: Danyell Almaguer MR#: [id number] : 1985 Acct:[id number] Age/Sex: 35 / F ADM Date: 03/01/21 Loc: [facility] Room: Type: [facility] Attending Dr: Leandro Robles MD Ordering [...] Valdez Mcwilliams M.D.03/01/2021 1:47 PM Dictation Location: [address] [place] [address] Transcribed By: [facility] 03/01/21 1347 Dictated By: Valdez Mcwilliams DO 03/01/21 1344 Signed By: 03/01/21 1347 [facility] XR FOREARM LEFT 2 VIEWSon XR [...] recommended in 7 to 10 days. [facility] Workstation ID: [id number] Dictated by: MAR DAWSON [...] Time Vital Sign Value Performing Clinician Facility 04-24-2024 09:26-0500 Body mass index (BMI) [Ratio] 36.31 kg/m2 Youzenia Ramirez Work Phone: [facility] 04-24-2024 09:26-0500 Body weight 105.14 kg You James DO Work Phone: [facility] 04-24-2024 09:26-0500 Diastolic blood pressure 60 mm[Hg] You James DO Work Phone: [facility] 04-24-2024 09:26-0500 Systolic blood pressure 110 mm[Hg] You James DO Work Phone: [facility] 04-21-2024 10:04-0500 Body height 170.2 cm Valdo Fenton MD Work Phone: [facility] 04-21-2024 10:04-0500 Body mass index (BMI) [Ratio] 35.94 kg/m2 Valdo Fenton MD Work Phone: [facility] 04-21-2024 10:04-0500 Body weight 104.1 kg Valdo Fenton MD Work Phone: [facility] 04-21-2024 10:04-0500 Diastolic blood pressure 80 mm[Hg] Valdo Fenton MD Work Phone: [facility] 04-21-2024 10:04-0500 Heart rate 74 /min Valdo Fenton MD Work Phone: [facility] 04-21-2024 10:04-0500 SaO2% (BldA) [Mass fraction] 99 % Valdo Fenton MD Work Phone: [facility] 04-21-2024 10:04-0500 Systolic blood pressure 130 mm[Hg] Valdo Fenton MD Work Phone: [facility] 04-17-2024 11:20-0500 Body mass index (BMI) [Ratio] 35.96 kg/m2 Iveth MCGRATH Work Phone: [facility] 04-17-2024 11:20-0500 Body weight 104.15 kg Iveth MCGRATH Work Phone: [facility] 04-17-2024 11:20-0500 Diastolic blood pressure 68 mm[Hg] Iveth Hood PA Work Phone: [facility] 04-17-2024 11:20-0500 Systolic blood pressure 110 mm[Hg] Iveth Paresh PA Work Phone: [facility] 04-09-2024 14:01-0500 Body mass index (BMI) [Ratio] 35.87 kg/m2 You James DO Work Phone: [facility] 04-09-2024 14:01-0500 Body weight 103.87 kg You James DO Work Phone: [facility] 04-09-2024 14:01-0500 Diastolic blood pressure 72 mm[Hg] You James DO Work Phone: [facility] 04-09-2024 14:01-0500 Systolic blood pressure 118 mm[Hg] You James DO Work Phone: [facility] 03-25-2024 14:23-0500 Body mass index (BMI) [Ratio] 35.71 kg/m2 Iveth Hood PA Work Phone: [facility] 03-25-2024 14:23-0500 Body weight 103.42 kg Iveth Paresh PA Work Phone: [facility] 03-25-2024 14:23-0500 Diastolic blood pressure 70 mm[Hg] Iveth Paresh PA Work Phone: [facility] 03-25-2024 14:23-0500 Systolic blood pressure 108 mm[Hg] Iveth Paresh PA Work Phone: [facility] 02-20-2024 11:40-0500 Body mass index (BMI) [Ratio] 34.68 kg/m2 You James DO Work Phone: [facility] 02-20-2024 11:40-0500 Body weight 100.43 kg You James DO Work Phone: [facility] 02-20-2024 11:40-0500 Diastolic blood pressure 70 mm[Hg] You James DO Work Phone: [facility] 02-20-2024 11:40-0500 Systolic blood pressure 120 mm[Hg] You James DO Work Phone: [facility] 02-07-2024 11:42-0500 Body mass index (BMI) [Ratio] 34.3 kg/m2 Iveth Denison PA Work Phone: [facility] 02-07-2024 11:42-0500 Body weight 99.34 kg Iveth Paresh PA Work Phone: [facility] 02-07-2024 11:42-0500 Diastolic blood pressure 70 mm[Hg] Iveth Denison PA Work Phone: [facility] 02-07-2024 11:42-0500 Systolic blood pressure 118 mm[Hg] Iveth Paresh PA Work Phone: [facility] 01-10-2024 10:44-0400 Body mass index (BMI) [Ratio] 33.89 kg/m2 You James DO Work Phone: [facility] 01-10-2024 10:44-0400 Body weight 98.16 kg You James DO Work Phone: [facility] 01-10-2024 10:44-0400 Diastolic blood pressure 74 mm[Hg] You James DO Work Phone: [facility] 01-10-2024 10:44-0400 Systolic blood pressure 120 mm[Hg] You James DO Work Phone: [facility] 12-13-2023 10:51-0400 Body mass index (BMI) [Ratio] 33.33 kg/m2 You James DO Work Phone: [facility] 12-13-2023 10:51-0400 Body weight 96.53 kg You James DO Work Phone: [facility] 12-13-2023 10:51-0400 Diastolic blood pressure 80 mm[Hg] You James DO Work Phone: [facility] 12-13-2023 10:51-0400 Systolic blood pressure 126 mm[Hg] You James DO Work Phone: [facility] 11-15-2023 10:14-0400 Body mass index (BMI) [Ratio] 33.11 kg/m2 You James DO Work Phone: [facility] 11-15-2023 10:14-0400 Body weight 95.89 kg You James DO Work Phone: [facility] 11-15-2023 10:14-0400 Diastolic blood pressure 78 mm[Hg] You James DO Work Phone: [facility] 11-15-2023 10:14-0400 Systolic blood pressure 118 mm[Hg] You James DO Work Phone: [facility] 03-01-2021 11:00-0500 Body height 170.18 cm Leandro Mckenziexa Other [facility] Other 03-01-2021 11:00-0500 Body mass index (BMI) [Ratio] 30.07 kg/m2 Leandro Olexa Other [facility] Other 03-01-2021 11:00-0500 Body weight 87.09 kg Leandro Olexa Other [employer] Other Encounters Encounter Date Encounter Type Care Provider Facility Start: 05-01-2024 End: 05-01-2024 ambulatory YOU JAMES Not Available Start: 05-01-2024 End: 05-01-2024 Bamboo flowsheet You James DO Work Phone: [facility] Start: 05-01-2024 End: 05-01-2024 Bamboo flowsheet You James DO Work Phone: [facility] Start: 04-25-2024 End: 04-25-2024 ambulatory ROB GONZALES [facility] Start: 04-24-2024 End: 04-24-2024 Bamboo flowsheet You James DO Work Phone: [facility] Start: 04-24-2024 End: 04-24-2024 Bamboo flowsheet You James DO Work Phone: [facility] Start: 04-24-2024 End: 04-24-2024 Clinisync Result Encounter You James DO Work Phone: [facility] Unsolicited Start: 04-24-2024 End: 04-24-2024 flow sheet You James DO Work Phone: [facility] Comment on above: 38 weeks gestation o f ; Third trimester Start: 04-24-2024 End: 04-24-2024 ambulatory YOU JAMES Not Available Start: 04-21-2024 End: 04-21-2024 Bamboo flowsheet Valdo [...] preventive med est patient 18-39 yrs Valdo Fenton MD Work Phone: [facility] Comment [...] of gestational diabetes; Anemia, unspecified type Start: 02-22-2024 End: 02-22-2024 ambulatory ROB [facility] Start: 02-20-2024 End: 02-20-2024 Bamboo flowsheet You James DO Work Phone: [facility] Start: 02-20-2024 End: 02-20-2024 Bamboo flowsheet You James DO Work Phone: [facility] Start: 02-20-2024 End: 02-20-2024 Clinisync Result Encounter You James DO Work Phone: [facility] Unsolicited Start: 02-20-2024 End: 02-20-2024 ambulatory YOUZenia FOXO Not Available Start: 02-20-2024 End: 02-20-2024 flow sheet You James DO Work Phone: [facility] Comment on above: 29 weeks gestation o f ; Third trimester ; Diabetes mellitus screening Start: 02-07-2024 End: 02-07-2024 Bamboo flowsheet Ievth MCGRATH Work Phone: [facility] Start: 02-07-2024 End: 02-07-2024 Bamboo flowsheet Iveth MCGRATH Work Phone: [facility] Start: 02-07-2024 End: 02-07-2024 ambulatory IVETH HOOD Not Available Start: 02-07-2024 End: 02-07-2024 flow sheet Iveth MCGRATH Work Phone: [facility] Comment on above: 24 weeks gestation o f ; size consistent with dates during in second trimester Start: 02-04-2024 End: 02-04-2024 ambulatory ROB [facility] Start: 01-30-2024 End: 01-30-2024 ambulatory [facility] Start: 01-23-2024 End: 01-23-2024 Telephone encounter [...] Not Available Start: 01-07-2024 End: 01-07-2024 ambulatory [facility] Start: 12-24-2023 End: 12-24-2023 ambulatory [facility] Start: 12-13-2023 End: 12-13-2023 Bamboo flowsheet You James DO Work Phone: [facility] Start: 12-13-2023 End: 12-14-2023 Bamboo flowsheet You James DO Work Phone: [facility] Start: 12-13-2023 End: 12-14-2023 [...] OB Start: 11-15-2023 End: 11-15-2023 ambulatory YOU RAMIREZ Not Available Start: 11-15-2023 End: 11-15-2023 flow sheet You James DO Work Phone: [facility] Comment on above: Second trimester pre gnancy; History of gestational diabetes; Diabetes mellitus screening; Screening, , for anatomic survey Start: 11-07-2023 End: 11-07-2023 Clinisync Result Encounter Iveth MCGRATH Work Phone: [facility] Unsolicited Start: 11-07-2023 End: 11-07-2023 Clinisync Result Encounter Iveth MCGRATH Work Phone: [facility] External Department Unsolicited Start: 10-18-2023 End: [...] 03-01-2021 End: 03-01-2021 ambulatory Leandro Robles Other [employer] Other Start: 03-01-2021 Encounter for other preprocedural examination Leandro Robles [facility] Start: 03-01-2021 Office outpatient ne w 45 minutes Leandro Robles [facility] Start: 09-09-2020 End: 09-09-2020 [facility] Date Procedure Procedure Detail Performing Clinician Start: 04-24-2024 Urnls dip stick/tabl et rgnt non-auto w/o micrscp You James DO Work Phone: Start: 04-24-2024 US OB BPP W NON-STRESS You James DO Work Phone: Start: 04-17-2024 Urnls dip stick/tabl et rgnt non-auto w/o micrscp Iveth MCGRATH Work Phone: Start: 04-09-2024 ALL MISCELLANEOUS TEST You James DO Work Phone: Start: 03-25-2024 Urnls [...] Phone: Start: 02-04-2024 Follow-up visit Follow-up ROB [facility] Start: 01-10-2024 Urnls dip stick/tabl et rgnt [...] ion [Identifier] in Cervix by Cyto stain You James DO Work Phone: Start: 03-08-2023 Cytp cerv/vag auto t hin layer prep mnl screen You James DO Work Phone: Start: 10-05-2021 Microscopic observat ion [Identifier] in Cervix by Cyto stain Iveth MCGRATH Work Phone: Plan of Treatment Date Care Activity Detail Author Start: 03-08-2028 Screening for malign ant neoplasm of cervix [facility] Start: 10-05-2026 Screening for malign ant neoplasm of cervix [facility] Start: 05-01-2024 End: 05-01-2024 Patient encounter procedure 05/01/2024 9:30 AM EST Routine [facility] [address] [place] [place] [id number] You Ramirez, [address] [place] [address] [facility] Start: 04-24-2024 End: 04-24-2024 Patient encounter procedure [facility] Comment on above: Arrived 38 weeks gestation o f ; Third trimester Start: 04-21-2024 End: 04-21-2025 Lipid 1996 panel - Serum or Plasma Lipid panel Lab Routine Screening for lipid disorders Expected: 04/21/2024 (Approximate), Expires: 04/21/2025 [facility] Work Phone: Comment on above: Expected: 04/21/2024 (Approximate), Expires: 04/21/2025 Start: 04-21-2024 End: 04-21-2024 Patient encounter procedure 04/21/2024 10:00 AM EST Office Visit [facility] [address] [place] [address] Valdo Fenton MD [address] [place] [address] (Fax) [facility] Start: 04-17-2024 End: 04-17-2024 Patient encounter procedure 04/17/2024 11:20 AM EST Routine [facility] [address] [facility] [place] [address] Iveth Hood PA [address] [place], [place] [id number] [facility] Start: 04-17-2024 End: 04-17-2024 Professional / ancillary services management 04/17/2024 10:30 AM EST Ancillary Procedure [facility] [address] [place] [address] [facility] Start: 04-09-2024 End: [...] PM EST Routine [facility] [address] [facility] [place] [address] You Ramirez DO [address] [place] [address] [place] [address] [facility] Start: 03-24-2024 End: 03-24-2024 Patient encounter procedure 03/24/2024 11:20 AM EST Routine [facility] [address] [facility] [place] [address] Iveth Hood PA [address] [facility] [place] [address] [facility] Start: 03-10-2024 End: 03-10-2025 [...] 9:30 AM EST Routine [facility] [address] [place] [address] [phone] You Ramirez, [address] [place] [address] [facility] Start: 02-20-2024 End: 02-19-2025 CBC panel - Blood by Automated count CBC Lab Routine Diabetes mellitus screening Expected: 02/20/2024 (Approximate), Expires: 02/19/2025 [facility] Work Phone: Comment on above: Expected: 02/20/2024 (Approximate), Expires: 02/19/2025 Start: 02-20-2024 End: 02-20-2024 Patient encounter procedure 02/20/2024 11:00 AM EST Routine [facility] [address] [facility] [place] [address] You Ramirez, DO [address] [place], [place] [id number] [facility] Start: 02-07-2024 End: 02-06-2025 US for US OB SCAN FOR GROWTH Imaging Routine size consistent with dates during in second trimester Expected: 02/07/2024 (Approximate), Expires: 02/06/2025 [facility] Work Phone: Comment on above: Expected: 02/07/2024 (Approximate), Expires: 02/06/2025 Start: 02-07-2024 End: 02-07-2024 Patient encounter procedure 02/07/2024 11:20 AM EST Routine [facility] [address] [facility] [place] [phone] Iveth Hood PA [address] [facility] [address] [place], [place] [id number] [facility] Start: 01-10-2024 End: 01-10-2024 Patient encounter procedure [facility] Comment on above: Arrived Start: 12-17-2023 End: 12-17-2023 Professional / ancillary services management 12/17/2023 8:00 AM EDT Ancillary Procedure [facility] [address] [facility] [place] [phone] [facility] Start: 12-13-2023 End: 01-12-2024 Alpha fetoprotein, maternal Alpha fetoprotein, maternal Lab Routine 19 weeks gestation of Expected: 12/13/2023 (Approximate), Expires: 01/12/2024 [facility] Comment on above: Expected: 12/13/2023 (Approximate), Expires: 01/12/2024 Start: 12-13-2023 End: 12-13-2023 Patient encounter procedure 12/13/2023 10:10 AM EDT Routine [facility] [address] [facility] [facility] [place] [address] You Ramirez, DO [address] [place] [address] [facility] Start: 11-18-2023 Influenza vaccination Influenza Vacc ine (#1) [facility] Start: 11-15-2023 End: 11-14-2024 Measurement of glucose 1 hour after glucose challenge for glucose tolerance test Glucose tolerance, 1 hour Lab Routine Diabetes mellitus screening Expected: 11/15/2023 (Approximate), Expires: 11/14/2024 [facility] Work Phone: Comment on above: Expected: 11/15/2023 (Approximate), Expires: 11/14/2024 Start: 11-15-2023 End: 11-14-2024 US for US OB ANATOMY SINGLE W US OB CERVICAL LENGTH Imaging Routine Second trimester History of gestational diabetes Screening, , for anatomic survey Expected: 11/15/2023 (Approximate), Expires: 11/14/2024 [facility] Comment on above: Expected: 11/15/2023 (Approximate), Expires: 11/14/2024 Start: 11-15-2023 End: 11-15-2023 Patient encounter procedure 11/15/2023 9:50 AM EDT Routine [facility] OB [address] [place] [id number] You Ramirez, DO [address] [place] [address] [facility] OB CBC W Auto Different ial panel - Blood CBC and differential Lab Routine Third trimester Other iron deficiency anemia Ordered: 04/09/2024 [facility] Comment on above: Ordered: 04/09/2024 CHLAMYDIA TRACHOMATI S (GENITO/STI) CHLAMYDIA TRACHOMATIS (GENITO/STI) Lab Routine Exposure to STD Ordered: 12/13/2023 [facility] Comment on above: Ordered: 12/13/2023 Ferritin [Mass/volum e] in Serum or Plasma Ferritin Lab Routine Third trimester Other iron deficiency anemia Ordered: 04/09/2024 [facility] Comment on above: Ordered: 04/09/2024 Hemoglobin A1c/Hemoglobin.total in Blood Hemoglobin A1c Lab Routine Diabetes mellitus screening Ordered: 02/20/2024 [facility] Comment on above: Ordered: 02/20/2024 Neisseria gonorrhoea e DNA [Presence] in Unspecified specimen by JESE with probe detection Neisseria gonorrhea DNA probe, direct Lab Routine Exposure to STD Ordered: 12/13/2023 [facility] Comment on above: Ordered: 12/13/2023 SURESWAB(R) ADVANCED VAGINITIS PLUS, TMA SURESWAB(R) ADVANCED VAGINITIS PLUS, TMA Pathology and Cytology Routine Vaginal discharge Ordered: 12/13/2023 [facility] Work Phone: Comment on above: Ordered: 12/13/2023 Vitamin D 1,25 dihydroxy Vitamin D 1,25 dihydroxy Lab Routine Third trimester Ordered: 04/09/2024 [facility] Comment on above: Ordered: 04/09/2024 Immunizations Immunization Date Immunization Notes Care Provider [facility] 12-26-2016 hepatitis B vaccine, adult dosage Iveth MCGRATH Work Phone: [facility] 12-26-2016 seasonal influenza, intradermal, preservative free Iveth MCGRATH Work Phone: [facility] 12-26-2016 influenza virus vacc ine, unspecified formulation Iveth MCGRATH Work Phone: [facility] Payers Date Payer Category Payer Private Health Insurance [id number] 2021 Private Health Insurance [employer] [id number] 2021 Unknown FRONTPATH FRONTP ATH [id number] 2021-Present [phone] [address] [place] [address] [id number] 2019 Unknown [id number] 1986 Unknown [id number] 2.16.840.1.153402.3.579.2. 902 1986 Unknown [id number] 2.16.840.1.969843.3.579.2. 593 1986 Unknown [id number] 2.16.840.1.763713.3.579.2. 593 1986 Unknown [id number] 2.16.840.1.575051.3.579.2. 593 1986 Unknown [id number] 2.16.840.1.785025.3.579.2. 593 1986 Unknown [id number] 2.16.840.1.535144.3.579.2. 593 1986 Unknown [id number] 2.16.840.1.256923.3.579.2. 593 1986 Unknown [id number] 2.16.840.1.591928.3.579.2. 1286 1986 Unknown [id number] 2.16.840.1.362661.3.579.2. 1286 1986 Unknown [id number] 2.16.840.1.003131.3.579.2. 128 1986 Unknown [id number] 2.16.840.1.892765.3.579.2. 1286 1986 Unknown [id number] 2.16.840.1.555806.3.579.2. 1286 1986 Unknown [id number] 2.16.840.1.749270.3.579.2. 1286 1986 Unknown [id number] 2.16.840.1.319864.3.579.2. 1258 1986 Unknown [id number] 2.16.840.1.471619.3.579.2. 1258 1986 Unknown [id number] 2.16.840.1.315302.3.579.2. 1258 1986 Unknown [id number] 2.840.1.795045.3.579.2. 1258 1986 Unknown [id number] 2.16.840.1.871038.3.579.2. 1258 1986 Unknown [id number] 2.840.1.697753.3.579.2. 1258 1986 Unknown [id number] 2.840.1.149375.3.579.2. 1258 1986 Unknown [id number] .840.1.646056.3.579.2. 1258 1986 Unknown [id number] 2.840.1.908219.3.579.2. 1258 1986 Unknown [id number] 2.840.1.380606.3.579.2. 1258 1986 Unknown [id number] 2.840.1.895736.3.579.2. 1258 1986 Unknown [id number] 840.1.395733.3.579.2. 1258 1986 Unknown [id number] .840.1.196204.3.579.2. 1258 1986 Unknown [id number] 2.840.1.560716.3.579.2. 1258 1986 Unknown [id number] .840.1.515150.3.579.2. 1258 1959 Self-pay 1959 Unknown [id number] 1959 Unknown [id number] 1959 Unknown [id number] Unknown [id number] 840.1.366488.3.579.2. 593 Social History Date Type Detail Facility Start: 10-15-2022 End: 02-05-2023 Sex Assigned At [facility] Start: 02-12-2023 Tobacco smoking status NHIS Ex-smoke r [facility] End: 08-19-2011 History of tobacco use Current smoker [facility] End: 08-19-2011 History of tobacco use Cigarette Smoker [facility] Start: 02-12-2023 Tobacco use and exposure Smoke less tobacco non-user [facility] Start: 01-10-2024 End: 04-24-2024 Alcoholic beverage intake Ex-drinker (finding) [facility] Start: 10-15-2022 End: 02-05-2023 History of Social function [facility] Within the last year , have you been afraid of your partner or ex-partner? No [facility] Do you belong to any clubs or organizations such as amish groups, unions, fraternal or athletic groups, or [...] Gender identity Identifies as female gender (finding) [facility] Clinical Notes 12-14-2021 to 04-24-2024 RAMILA Joshi - 04/24/2024 9:40 AM Smita Fenton MD - 04/21/2024 10:00 AM RAMILA Pompa - 04/17/2024 11:20 AM Ke Chun LPN - 04/09/2024 1:30 PM EST Note Date & Type Note Facility 04-24-2024 History of Presen t illness Narrative Reason for Appointment: Patient ID: Danyell Starr is a 38 y.o. female who presents for Routine Visit Patient presents today for Return OB appointment. MEDICATIONS Current Outpatient Medications Medication Instructions Continuous Glucose Callisthenics Instructor (Dexcom G7 Callisthenics Instructor) device 1 each, Does not apply, Every 14 days Continuous Glucose Sensor (Dexcom G7 Sensor) misc 1 each, Does not apply, Every 14 days Folic Acid (FOLATE PO) 1 tablet, Daily IRON CR PO 1 tablet, 2 times daily Probiotic Product (PROBIOTIC DAILY PO) 2 capsules, Daily Vitamin D-Vitamin K (VITAMIN K2-VITAMIN D3 PO) 2 drops, Daily ALLERGIES Allergies Allergen Reactions Sertraline Other Flat emotions Other Reaction(s): decreased emotional lability PROBLEMS Active Ambulatory Problems Diagnosis Date Noted Attention deficit hyperactivity disorder (ADHD) (CMS/[facility]) 09/15/2022 Cervicalgia 09/15/2022 Chronic fatigue 09/15/2022 Chronic tension-type headache, not intractable 09/15/2022 Generalized anxiety disorder (CMS/HCC) 09/15/2022 HPV (human papilloma virus) infection 09/15/2022 LGSIL on Pap smear of cervix 09/15/2022 Migraine with aura and without status migrainosus, not intractable (CMS/HCC) 09/15/2022 Moderate recurrent major depression (CMS/HCC) 09/15/2022 [...] reviewed. Vitals: Estimated body mass index is 36.31 kg/m as calculated from the following: Height as of 04/21/24: 5' 7 . Weight as of this encounter: 231 lb 12.8 oz. BP: 110/60 Patient's last menstrual period was 07/28/2023. ASSESSMENT & PLAN ICD-10-CM 1. 38 weeks gestation of Z3A.38 POCT urinalysis dipstick manually resulted 2. Third trimester Z34.93 POCT urinalysis dipstick manually resulted Return OB: Patient presents today for a routine obstetrics appointment. Patient is currently 38w5d . Patient states she is doing well [...] You Ramirez DO documented in this encounter [facility] 04-21-2024 History of Presen t illness Narrative Images from the original note were not included. Patient ID: Danyell Starr is a 38 y.o. female who presents for: Adult Wellness: See Scanned Wellness packet Advance Directive/Living Will: No Health Care Power of Sap Solution Manager Consultant: No Review of Systems Constitutional: Negative for [...] Visit Medication Sig Dispense Refill Continuous Glucose Callisthenics Instructor (Dexcom G7 Callisthenics Instructor) device 1 each every 14 (fourteen) days [...] through a living will, durable power of city attorney for healthcare, or other advanced directives. [...] - Lipid panel documented in this encounter [facility] 04-17-2024 History of Presen t illness Narrative Reason for Appointment: Patient ID: Danyell Starr is a 38 y.o. female who presents for Routine Visit Patient presents today for Return OB appointment. MEDICATIONS Current Outpatient Medications Medication Instructions Continuous Glucose Callisthenics Instructor (Dexcom G7 Callisthenics Instructor) device 1 each, Does not apply, Every [...] Attention deficit hyperactivity disorder (ADHD) ([facility]) 09/15/2022 Cervicalgia 09/15/2022 Chronic fatigue 09/15/2022 Chronic tension-type headache, not intractable 09/15/2022 Generalized anxiety disorder ([facility]) 09/15/2022 HPV (human papilloma virus) infection 09/15/2022 LGSIL on Pap smear of cervix 09/15/2022 Migraine with aura and without status migrainosus, not intractable ([facility]) 09/15/2022 Moderate recurrent major depression ([facility]) 09/15/2022 Other chronic pain 09/15/2022 [...] ADHD (attention deficit hyperactivity disorder) ([facility]) ADHD (attention deficit hyperactivity disorder) ([facility]) Ankle pain, left Anxiety with [...] ADHD (attention deficit hyperactivity disorder) ([facility]) ADHD (attention deficit hyperactivity disorder) ([facility]) Ankle pain, left Anxiety with [...] of: RAMILA Joshi documented in this encounter [facility] 04-09-2024 History of Presen t illness Narrative Reason for Appointment: Patient ID: Danyell Starr is a 38 y.o. female who presents for Routine Visit Patient presents today for Return OB appointment. MEDICATIONS Current Outpatient Medications Medication Instructions Continuous Glucose Callisthenics Instructor (FreeStyle Adriana 2 [place]) device 1 Device, Does not apply, 4 [...] ADHD (attention deficit hyperactivity disorder) ([facility]/HCC) ADHD (attention deficit hyperactivity disorder) ([facility]) Ankle pain, left Anxiety with [...] ADHD (attention deficit hyperactivity disorder) ([facility]/HCC) ADHD (attention deficit hyperactivity disorder) ([facility]) Ankle pain, left Anxiety with [...] nursing note reviewed. Exam conducted with a watch dial maker present. Vitals: Estimated body mass index is [...] You Ramirez DO documented in this encounter [facility] 03-25-2024 History of Presen t illness Narrative Reason for Appointment: Patient ID: Danyell Starr is a 38 y.o. female who presents for No chief complaint on file. Patient presents today for Return OB appointment. MEDICATIONS Current Outpatient Medications Medication Instructions Continuous Glucose Callisthenics Instructor (FreeStyle Adriana 2 [place]) device 1 Device, Does not apply, 4 [...] nursing note reviewed. Exam conducted with a watch dial maker present. Vitals: Estimated body mass index is [...] of: RAMILA Joshi documented in this encounter [facility] 03-10-2024 History of Presen t illness Narrative Reason for Appointment: Patient ID: Danyell Starr is a 38 y.o. female who presents for Routine Visit Patient presents today for Return OB appointment. MEDICATIONS Current Outpatient Medications Medication Instructions Continuous Glucose Callisthenics Instructor (FreeStyle Adriana 2 [place]) device 1 Device, Does not apply, 4 times daily MV-Min-Fe Fum-FA-DHA ( 1 PO) Take by mouth. saccharomyces boulardii (FLORASTOR) 250 mg, 2 times daily ALLERGIES Allergies Allergen Reactions Sertraline Other Flat emotions Other Reaction(s): decreased emotional lability PROBLEMS Active Ambulatory Problems Diagnosis Date Noted Attention deficit hyperactivity disorder (ADHD) ([facility]) 09/15/2022 Cervicalgia 09/15/2022 Chronic fatigue 09/15/2022 Chronic tension-type headache, not intractable 09/15/2022 Generalized anxiety disorder (CMS/[facility]) 09/15/2022 HPV (human papilloma virus) infection 09/15/2022 Large breasts 09/15/2022 LGSIL on Pap smear of cervix 09/15/2022 Migraine with aura and without status migrainosus, not intractable ([facility]) 09/15/2022 Missed period 09/15/2022 Moderate recurrent major depression ([facility]) 09/15/2022 Other chronic pain 09/15/2022 Radicular pain 09/15/2022 Vitamin D deficiency 09/15/2022 History of miscarriage 06/22/2023 Positive urine test 06/22/2023 23 weeks gestation of 01/10/2024 32 weeks gestation of 03/10/2024 Third trimester 03/10/2024 Resolved Ambulatory Problems Diagnosis Date Noted No Resolved Ambulatory Problems Past Medical History: Diagnosis Date ADHD (attention deficit hyperactivity disorder) ([facility]) ADHD (attention deficit hyperactivity disorder) ([facility]) Ankle pain, left Anxiety with [...] ADHD (attention deficit hyperactivity disorder) ([facility]) ADHD (attention deficit hyperactivity disorder) ([facility]) Ankle pain, left Anxiety with [...] You Ramirez DO documented in this encounter [facility] 02-20-2024 History of Presen t illness Narrative Reason for Appointment: Patient ID: Danyell Starr is a 38 y.o. female who presents for Routine Visit Patient presents today for Return OB appointment. MEDICATIONS Current Outpatient Medications Medication Instructions Continuous Glucose Callisthenics Instructor (FreeStyle Adriana 2 [place]) device 1 Device, Does not apply, 4 times daily MV-Min-Fe Fum-FA-DHA ( 1 PO) Take by mouth. saccharomyces boulardii (FLORASTOR) 250 mg, 2 times daily ALLERGIES Allergies Allergen Reactions Sertraline Other Flat emotions Other Reaction(s): decreased emotional lability PROBLEMS Active Ambulatory Problems Diagnosis Date Noted Attention deficit hyperactivity disorder (ADHD) ([facility]) 09/15/2022 Cervicalgia 09/15/2022 Chronic fatigue 09/15/2022 Chronic tension-type headache, not intractable 09/15/2022 Generalized anxiety disorder ([facility]) 09/15/2022 HPV (human papilloma virus) infection 09/15/2022 Large breasts 09/15/2022 LGSIL on Pap smear of cervix 09/15/2022 Migraine with aura and without status migrainosus, not intractable ([facility]) 09/15/2022 Missed period 09/15/2022 Moderate recurrent major depression ([facility]) 09/15/2022 Other chronic pain 09/15/2022 Radicular pain 09/15/2022 Vitamin D deficiency 09/15/2022 History of miscarriage 06/22/2023 Positive urine test 06/22/2023 23 weeks gestation of 01/10/2024 Resolved Ambulatory Problems Diagnosis Date Noted No Resolved Ambulatory Problems Past Medical History: Diagnosis Date ADHD (attention deficit hyperactivity disorder) ([facility]) ADHD (attention deficit hyperactivity disorder) ([facility]) Ankle pain, left Anxiety with depression Epidermal inclusion cyst Fall with injury Gastro-esophageal reflux disease without esophagitis Headache History of cigarette smoking IBS (irritable bowel syndrome) Influenza Irritable bowel syndrome without diarrhea Mononucleosis syndrome Pain in thoracic spine Perennial allergic rhinitis Scoliosis Sinusitis URI (upper respiratory infection) HISTORY PAST MEDICAL HISTORY SOCIAL HISTORY Past Medical History: Diagnosis Date ADHD (attention deficit hyperactivity disorder) ([facility]) ADHD (attention deficit hyperactivity disorder) ([facility]) Ankle pain, left Anxiety with depression Anxiety/depression [...] You Ramirez DO documented in this encounter [facility] 02-07-2024 History of Presen t illness Narrative Reason for Appointment: Patient ID: Danyell Starr is a 38 y.o. female who presents for Routine Visit Patient presents today for Return OB appointment. MEDICATIONS Current Outpatient Medications Medication Instructions Continuous Glucose Callisthenics Instructor ([employer]yle Adriana 2 [place]) device 1 Device, Does not apply, 4 [...] of: RAMILA Joshi documented in this encounter [facility] 01-23-2024 Telephone encount er Note Endocrinology [...] we will have to put her with OPHTHALMIC PATHOLOGIST of her choice (since she would be a returning Elizabeth pt) to establish care. [facility] 01-23-2024 Miscellaneous Notes Formattin g of [...] we will have to put her with OPHTHALMIC PATHOLOGIST of her choice (since she would be a returning [facility] pt) to establish care. documented in this encounter [facility] 01-10-2024 History of Presen t illness Narrative Reason for Appointment: Patient ID: Danyell Starr is a 38 y.o. female who presents for Routine Visit Patient presents today for Return OB appointment. MEDICATIONS Current Outpatient Medications Medication Instructions Continuous Glucose Callisthenics Instructor (FreeStyle Adriana 2 [place]) device 1 Device, Does not apply, 4 [...] Attention deficit hyperactivity disorder (ADHD) ([facility]) 09/15/2022 Cervicalgia 09/15/2022 Chronic fatigue 09/15/2022 Chronic tension-type headache, not intractable 09/15/2022 Generalized anxiety disorder ([facility]) 09/15/2022 HPV (human papilloma virus) infection 09/15/2022 Large breasts 09/15/2022 LGSIL on Pap smear of cervix 09/15/2022 Migraine with aura and without status migrainosus, not intractable ([facility]/HCC) 09/15/2022 Missed period 09/15/2022 Moderate recurrent major depression (CMS/HCC) 09/15/2022 Other chronic pain 09/15/2022 Radicular pain 09/15/2022 Vitamin D deficiency 09/15/2022 History of miscarriage 06/22/2023 Positive urine test 06/22/2023 Resolved Ambulatory Problems Diagnosis Date Noted No Resolved Ambulatory Problems Past Medical History: Diagnosis Date ADHD (attention deficit hyperactivity disorder) ([facility]) ADHD (attention deficit hyperactivity disorder) ([facility]) Ankle pain, left Anxiety with [...] ADHD (attention deficit hyperactivity disorder) ([facility]) ADHD (attention deficit hyperactivity disorder) ([facility]) Ankle pain, left Anxiety with [...] nursing note reviewed. Exam conducted with a watch dial maker present. Vitals: Estimated body mass index is [...] You Ramirez DO documented in this encounter [facility] 12-13-2023 History of Presen t illness Narrative Reason for Appointment: Patient ID: Danyell Starr is a 38 y.o. female who presents for Routine Visit and STI Screening Patient presents today for Return OB appointment. MEDICATIONS Current Outpatient Medications Medication Instructions Continuous Glucose Callisthenics Instructor ([employer] Adriana 2 [place]) device 1 Device, Does not apply, 4 times daily ergocalciferol (VITAMIN D2) 1.25 mg, Oral, Weekly MV-Min-Fe Fum-FA-DHA ( 1 PO) Oral saccharomyces boulardii (FLORASTOR) 250 mg, Oral, 2 times daily ALLERGIES Allergies Allergen Reactions Sertraline Other Flat emotions Other Reaction(s): decreased emotional lability PROBLEMS Active Ambulatory Problems Diagnosis Date Noted Attention deficit hyperactivity disorder (ADHD) ([facility]) 09/15/2022 Cervicalgia 09/15/2022 Chronic fatigue 09/15/2022 Chronic tension-type headache, not intractable 09/15/2022 Generalized anxiety disorder ([facility]) 09/15/2022 HPV (human papilloma virus) infection 09/15/2022 Large breasts 09/15/2022 LGSIL on Pap smear of cervix 09/15/2022 Migraine with aura and without status migrainosus, not intractable ([facility]) 09/15/2022 Missed period 09/15/2022 Moderate recurrent major depression (HCC) ([facility]) 09/15/2022 Other chronic pain 09/15/2022 Radicular pain 09/15/2022 Vitamin D deficiency 09/15/2022 History of miscarriage 06/22/2023 Positive urine test 06/22/2023 Resolved Ambulatory Problems Diagnosis Date Noted No Resolved Ambulatory Problems Past Medical History: Diagnosis Date ADHD (attention deficit hyperactivity disorder) ([facility]) ADHD (attention deficit hyperactivity disorder) ([facility]) Ankle pain, left Anxiety with [...] ADHD (attention deficit hyperactivity disorder) ([facility]) ADHD (attention deficit hyperactivity disorder) ([facility]) Ankle pain, left Anxiety with [...] nursing note reviewed. Exam conducted with a watch dial maker present. Vitals: Estimated body mass index is [...] You Ramirez DO documented in this encounter [facility] 11-15-2023 History of Presen t illness Narrative Reason for Appointment: Patient ID: Danyell Starr is a 38 y.o. female who [...] or undercooked meat, and stay away from [facility]. Patient has been consulted regarding any [...] Iveth Hood PA-C documented in this encounter [facility] 03-01-2021 Evaluation note Encounter Date Diagnosis [...] Feb, 2021 Pre-op exam (ICD-10 - Z01.818) [facility] Other Evaluation note* Diagnosis Second trimester state, [...] for anatomic survey documented in this encounter [facility] HealthcareEvaluation note* Diagnosis 19 weeks gestation of [...] discussed with patient documented in this encounter [facility] HealthcareEvaluation note* Diagnosis Encounter for wellness examination in adult- Primary Advance directive discussed with patient Screening for lipid disorders [facility] Diagnosis 38 weeks gestation of Third trimester state, incidental [facility] N[facility] - Reported* Type Description Date Medical History ADHD [facility] Other Summary Purpose Family History No Family [...] DATE CREATED AUTHOR AUTHOR'S ORGANIZ ATION 10/06/2021 [facility] DATE CREATED AUTHOR AUTHOR'S ORGANIZ ATION 06/08/2022 [facility] DATE CREATED AUTHOR AUTHOR'S ORGANIZ ATION 04/27/2024 [facility] DATE CREATED AUTHOR AUTHOR'S ORGANIZ ATION 05/03/2024 [facility] Specialists EPIC REASON FOR VISIT (unrecogniz ed section and content) Reason Comments Routine Visit Reason Comments Routine Visit STI Screening Reason Comments Annual Exam Care Teams (unrecognized sec tion and content) Lean Consultant Relationship Specialty Start Date End Date Emily Alfaro DO [address] [place] [address] PCP - General Family Medicine 09/14/22 Lean Consultant Relationship Specialty Start Date End Date Emily Alfaro DO [address] [place] [address] PCP - General Family Medicine 09/14/22 Lean Consultant Relationship Specialty Start Date End Date Emily Alfaro DO [address] [place] [address] PCP - General Family Medicine 09/14/22 Lean Consultant Relationship Specialty Start Date End Date Emily Alfaro DO [address] [place] [address] PCP - General Family Medicine 09/14/22 Lean Consultant Relationship Specialty Start Date End Date Emily Alfaro DO [address] [place] [address] PCP - General Family Medicine 09/14/22 Lean Consultant Relationship Specialty Start Date End Date Emily Alfaro DO [address] [place] [address] PCP - General Family Medicine 09/14/22 Lean Consultant Relationship Specialty Start Date End Date Emily Alfaro DO [address] [place] [address] PCP - General Family Medicine 09/14/22 Lean Consultant Relationship Specialty Start Date End Date Emily Alfaro DO [address] [place] [address] PCP - General Family Medicine 09/14/22 Lean Consultant Relationship Specialty Start Date End Date Emily Alfaro DO [address] [place] [address] PCP - General Family Medicine 09/14/22 Lean Consultant Relationship Specialty Start Date End Date Emily Alfaro DO [address] [place] [address] PCP - General Family Medicine 09/14/22 Lean Consultant Relationship Specialty Start Date End Date Emily Alfaro DO [address] [place] [address] PCP - General Family Medicine 09/14/22 Lean Consultant Relationship Specialty Start Date End Date Emily Alfaro DO [address] [place] [address] PCP - General Family Medicine 09/14/22 Lean Consultant Relationship Specialty Start Date End Date Emily Alfaro DO [address] [place] [address] PCP - General Family Medicine 09/14/22 Lean Consultant Relationship Specialty Start Date End Date Emily Alfaro DO [address] [place] [address] PCP - General Family Medicine 09/14/22 Lean Consultant Relationship Specialty Start Date End Date Emily Alfaro DO [address] [place] [address] PCP - General [facility] Medicine 09/14/22 Lean Consultant Relationship Specialty Start Date End Date Emiyl Alfaro DO [address] [place] [address] PCP - [facility] 09/14/22 Lean Consultant Relationship Specialty Start Date End Date Emily Alfaro DO [address] [place] [address] PCP - General Family Medicine 09/14/22 FOR [...] BASED ON THE PRIMARY CLINICAL RECORDS. [facility] [email or web address] [facility]. provides no warranty or guarantee of the accuracy or completeness of information in this document.
[2024-05-08 08:38] VITALS: BP 132/76; PULSE 74
== END 2024-05-08 09:17 | disposition home or self-care (01) ==
LOC: US 07:54 → FBC 07:55
PROVIDERS: PCP Family Medicine; Visit Provider Obstetrics & Gynecology
DX: O48.0 Post-term pregnancy (principal); Z3A.40 40 weeks gestation of pregnancy
CPT/HCPCS: 76818

== ENCOUNTER 2024-05-11 20:11 | Inpatient (IN) | payer OTHER, SELFPAY ==
--- OUTSIDE RECORDS SUMMARY | 2024-05-11 20:17 | XMS_ITS | CCD ---
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 Name Role Phone HUBER LUNDBERG Attending Unavailable [...] Unavailable JAMES ., DR MCCLOUD Admitting Unavailable [place], DR CARIDAD Martin Consulting Unavailable JAMES ., [...] Elizabeth DO, Emily G Primary Care Provider [phone] SRIDEVI FREITAS Attending Unavailable ELIZABETH, EMILY G Referring Unavailable ELIZABETH, EMILY G Primary Care Unavailable ROB GONZALES Attending Unavailable ELIZABETH, EMILY G Referring Unavailable ELIZABETH, EMILY G Primary Care Unavailable SRIDEVI FREITAS Attending Unavailable ELIZABETH, EMILY G Referring Unavailable ELIZABETH, EMILY G Primary Care Unavailable CHRISTIANROB CUELLAR Attending Unavailable ELIZABETH, EMILY G Referring Unavailable ELIZABETH, EMILY G Primary Care Unavailable CHRISTIAN, ROB John Attending Unavailable ELIZABETH, EMILY G Referring Unavailable ELIZABETH, EMILY G Primary Care Unavailable CHRISTIAN, ORB John Attending Unavailable ELIZABETH, EMILY G Referring [...] Orally Twice a day Active Continuous Glucose Hat Trimmer (Dexcom G7 Hat Trimmer) device (16 sources) Start: 04-10-2024 Continuous Glucose Hat Trimmer (Dexcom G7 Hat Trimmer) device Indications: History of gestational diabetes 1 each every 14 (fourteen) days 1 each 04/10/2024 Active Continuous Glucose Sensor (Dexcom G7 Sensor) misc (16 sources) Start: 04-10-2024 Continuous Glucose Sensor (Dexcom G7 Sensor) misc Indications: History of gestational diabetes 1 each every 14 (fourteen) days 2 each 11 04/10/2024 Active ergocalciferol 1.25 mg oral capsule (15 sources) Provitamin D2 Compound Start: 02-14-2023 End: 02-14-2024 take 1 capsule by mouth every week ergocalciferol (Vitamin D2) 1.25 MG (79291 UT) capsule Indications: Vitamin D deficiency Take 1 capsule (1.25 mg) by mouth 1 (one) time per week. 14 capsule 3 02/14/2023 02/14/2024 Active Folic Acid (13 sources) take 1 tablet by mouth once daily Folic Acid (FOLATE PO) Take 1 tablet by mouth Daily Active ibuprofen 400 mg oral tablet (1 source) Nonsteroidal Anti-inflammatory Drug take 1 tablet by mouth three times daily at mealtime as needed Ibuprofen 400 MG 1 tablet with food or milk as needed Orally Three times a day Active Iron (13 sources) take 1 tablet by mouth in [...] day Active Probiotic Product (PROBIOTIC DAILY PO) (13 sources) take 2 capsules by mouth once daily Probiotic Product (PROBIOTIC DAILY PO) Take 2 capsules by mouth Daily Pre and Probiotic with Cranberry Active Vitamin D-Vitamin K (VITAMIN K2-VITAMIN D3 PO) (13 sources) take 2 drop(s) by mouth once [...] 04/09/2024 04/21/2024 Discontinued (Therapy completed) Continuous Glucose Hat Trimmer (FreeStyle Adriana 2 [place]) device (20 sources) Start: 11-15-2023 End: 04-10-2024 Continuous Glucose Hat Trimmer (FreeStyle Adriana 2 [place]) device Indications: History of gestational diabetes 1 Device in the morning and 1 Device at noon and 1 Device in the evening and 1 Device before bedtime. 1 each 11/15/2023 04/10/2024 Discontinued Start: 11-15-2023 Continuous Glu cose Hat Trimmer (FreeStyle Adriana 2 [place]) device Indications: History of gestational diabetes 1 [...] [38 weeks gestation of ] 04-24-2024 Episodic Residual codes; unclassified (2 sources) Gestation period, 39 weeks; Translations: [39 weeks gestation of ] 05-01-2024 Episodic Residual codes; unclassified (2 sources) Gestation period, 40 weeks; Translations: [40 weeks gestation of ] 05-07-2024 Episodic Unclassified (2 sources) LOW BACK PAIN, [...] Resolved: 04-14-2024 03-10-2024 Episodic Residual codes; unclassified (20 sources) Gestation period, 34 weeks; Translations: [34 [...] Facility US OB BPP W NON-STRESS on 05-08-2024 [place] [address] Ultrasound Report Signed Patient: DANYELL STARR MR#: [id number] : 1985 Acct:[id number] Age/Sex: 38 / F ADM Date: 05/08/24 Loc: US Attending Dr: You Ramirez D.O. Ordering Physician: You Ramirez D.O. Date of Service: 05/08/24 Procedure(s): US OB BPP w non-stress Accession Number(s): [id number] cc: You Ramirez D.O.; VALDO FENTON [place] [id number] Patient Name: DANYELL STARR MRN: [facility]:[id number] date: 1985 Sex: F Assigned Patient Location: [facility] Current Patient Location: Accession/Order Number: [id number] Exam Date: 05/08/2024 13:16 Report Date: 05/08/2024 13:18 At the request of: YOU RAMIREZ DO Procedure: US OB BPP w non-stress Biophysical profile. Reason for exam: Gestational age 40 weeks 4 days. COMPARISON: BPP 04/24/2024. TECHNIQUE: Transabdominal imaging of the gravid uterus was obtained. FINDINGS: Social Service Worker reports the biophysical profile is 8 out of 8. GALINA is normal at 12.9 cm. heart rate 141 bpm. US/US OB BPP w non-stress IMPRESSION: BPP 8 out of 8. Correlation with NST is recommended. Impression dictated by: Luis Villnaueva Jr., D.O.05/08/2024 1:18 PM Dictation Location: [place] [address] Electronically authenticated by: [id number] Y Date: 05/08/2024 13:18 Dictated By: Luis Villanueva M.D. Signed By: 05/08/24 1320 DD/ 1318 TD/TT: Special Education Educational Assistant: [facility] Radiology, Radiologist, MD - 05/08/2024 [place] [address] Ultrasound Report Signed Patient: DANYELL STARR MR#: [id number] : 1985 Acct:[id number] Age/Sex: 38 / F ADM Date: 05/08/24 Loc: US Attending Dr: You Ramirez D.O. Ordering Physician: You Ramirez D.O. Date of Service: 05/08/24 Procedure(s): US OB BPP w non-stress Accession Number(s): [id number] cc: You Ramirez D.O.; VALDO FENTON [place] [address] Patient Name: DANYELL STARR MRN: [facility]:[id number] date: 1985 Sex: F Assigned Patient Location: [facility] Current Patient Location: Accession/Order Number: [id number] Exam Date: 05/08/2024 13:16 Report Date: 05/08/2024 13:18 At the request of: YOU RAMIREZ DO Procedure: US OB BPP w non-stress Biophysical profile. Reason for exam: Gestational age 40 weeks 4 days. COMPARISON: BPP 04/24/2024. TECHNIQUE: Transabdominal imaging of the gravid uterus was obtained. FINDINGS: Social Service Worker reports the biophysical profile is 8 out of 8. GALINA is normal at 12.9 cm. heart rate 141 bpm. US/US OB BPP w non-stress IMPRESSION: BPP 8 out of 8. Correlation with NST is recommended. Impression dictated by: Luis Villanueva Jr., D.O.05/08/2024 1:18 PM Dictation Location: [place] [address] Electronically authenticated by: [id number] Y Date: 05/08/2024 13:18 Dictated By: Luis Villanueva M.D. Signed By: 05/08/24 1320 DD/ 1318 TD/TT: Special Education Educational Assistant: [facility] Radiology Study observation (narrative) [facility] US OB BPP W NON-STRESS Ordered By: Radiologist Radiology on 05-08-2024 [facility] Work Phone: Urinalysis macro (dipstick) panel (U)on 05-07-2024 Bilirubin, UA Negative Negative - 4(70) +++ mg/dL [facility] Blood, UA Negative Negative - 50 Andrew/mcL [facility] Clarity, UA Clear [facility] Color, UA Yellow [facility] Glucose, UA Negative Negative - 1999(110) ++++ mg/dL [facility] Interpretation and review of laboratory results Abnormal [facility] Ketones, UA Positive Negative - 160(16) ++++ mg/dL [facility] Comment on above: trace Leukocytes, UA Negative Negative - 500+++ Lore/mcL [facility] Nitrite, UA Negative Negative - Positive [facility] pH, UA 5.5 5 - 9 [facility] Protein, UA Positive Negative - 1999(20) ++++ mg/dL [facility] Comment on above: 30 Spec Grav, UA 1.03 1 - 1.03 [facility] Urobilinogen, UA 1.0 0.2 - 12 mg/dL [facility] Urinalysis macro (dipstick) panel (U)on 05-01-2024 Bilirubin, UA Negative Negative - 4(70) +++ mg/dL [facility] Blood, UA Negative Negative - 50 Andrwe/mcL [facility] Clarity, UA Clear [facility] Color, UA Yellow [facility] Glucose, UA Negative Negative - 2000(110) ++++ mg/dL [facility] Interpretation and review of laboratory results Abnormal [facility] Ketones, UA Negative Negative - 160(16) ++++ mg/dL [facility] Leukocytes, UA Negative Negative - 500+++ Lore/mcL [facility] Nitrite, UA Negative Negative - Positive [facility] pH, UA 5.5 5 - 9 [facility] Protein, UA Trace Negative - 2000(20) ++++ mg/dL [facility] Spec Grav, UA 1.03 1 - 1.03 [facility] Urobilinogen, UA 0.2 0.2 - 12 mg/dL [facility] US OB BPP W NON-STRESS on 04-24-2024 [place] [address] Ultrasound Report Signed Patient: DANYELL STARR MR#: [id number] : 1985 Acct:[id number] Age/Sex: 38 / F ADM Date: 04/24/24 Loc: US Attending Dr: You Ramirez D.O. Ordering Physician: You Ramirez D.O. Date of Service: 04/24/24 Procedure(s): US OB BPP w non-stress Accession Number(s): [id number] cc: You Ramirez D.O.; VALDO FENTON [place] [address] Patient Name: DANYELL STARR MRN: [facility]:[id number] date: 1985 Sex: F Assigned Patient Location: US Current Patient Location: US Accession/Order Number: [id number] Exam Date: 04/24/2024 08:09 Report Date: 04/24/2024 [...] M.D. Signed By: 04/24/24928 DD/ 5 TD/TT: Special Education Educational Assistant: [facility] Radiology, Radiologist, MD - 04/24/2024 [place] [address] Ultrasound Report Signed Patient: DANYELL STARR MR#: [id number] : 1985 Acct:[id number] Age/Sex: 38 / F ADM Date: 04/24/24 Loc: US Attending Dr: You Ramirez D.O. Ordering Physician: You Ramirez D.O. Date of Service: 04/24/24 Procedure(s): US OB BPP w non-stress Accession Number(s): [id number] cc: You Ramirez D.O.; VALDO FENTON [place] [address] Patient Name: DANYELL STARR MRN: [facility]:[id number] date: 1985 Sex: F Assigned Patient Location: Current Patient Location: Accession/Order Number: [id number] Exam Date: 04/24/2024 08:09 Report Date: 04/24/2024 [...] M.D. Signed By: 04/24/24928 DD/ 5 TD/TT: Special Education Educational Assistant: [facility] Radiology Study observation (narrative) [facility] US OB BPP W NON-STRESS Ordered By: Radiologist Radiology on 04-24-2024 [facility] Work Phone: Urinalysis macro (dipstick) panel (U)on 04-24-2024 Bilirubin, UA Negative Negative - 4(70) +++ mg/dL [facility] Blood, UA Negative Negative - 50 Andrew/mcL [facility] Clarity, UA Clear [facility] Color, UA Yellow [facility] Glucose, UA Negative Negative - 2000(110) ++++ mg/dL [facility] Interpretation and review of laboratory results Abnormal [facility] Ketones, UA Negative Negative - 160(16) ++++ mg/dL [facility] Leukocytes, UA Positive Negative - 500+++ Lore/mcL [facility] Comment on above: small Nitrite, UA Negative Negative - Positive [facility] pH, UA 6.5 5 - 9 [facility] Protein, UA Negative Negative - 2000(20) ++++ mg/dL [facility] Spec Grav, UA 1.015 1 - 1.03 [facility] Urobilinogen, UA 0.2 0.2 - 12 mg/dL [facility] US OB FOLLOW UP TRANSABDOMIN AL [...] Weight: 3599 gm (7 lbs, 14 oz (2724-9964 gm) [place] Normal: 3177 gm (7818-7653 gm) [place] Wt%: 85% for 37.7 wks [...] report is generated using voice recognition reporting (P2i). On occasion Emuliscribe erroneously drops words from the report or [...] UA Negative Negative - 4(70) +++ mg/dL [facility] Blood, UA Negative Negative - 50 Andrew/mcL [facility] Clarity, UA Clear [facility] Color, UA Yellow [facility] Glucose, UA Negative Negative - 2000(110) ++++ mg/dL [facility] Interpretation and review of laboratory results Abnormal [facility] Ketones, UA Negative Negative - 160(16) ++++ mg/dL [facility] Leukocytes, UA Trace Negative - 500+++ Lore/mcL [facility] Nitrite, UA Negative Negative - Positive [facility] pH, UA 6 5 - 9 [facility] Protein, UA Trace Negative - 2000(20) ++++ mg/dL [facility] Spec Grav, UA 1.03 1 - 1.03 [facility] Urobilinogen, UA 1.0 0.2 - 12 mg/dL [facility] ALL MISCELLANEOUS TESTon MISCELLANEOUS TEST COMMENT . [facility] Comment on above: Test Ordered: [id number] Strep Gp B Culture+Rflx Strep Gp B Culture+Rflx Negative CB Reference Range: Negative Centers for Disease Control and Prevention (CDC) and [place] [employer] Gynecologists (ACOG) guidelines [...] resistance to clindamycin is noted. Performed at: [facility] [id number] Bioinformatics Engineer: Carlos Manuel Bray PhD, Phone: [phone] GROUP BE STREP [id number] Group B Streptococcus Colonization Detection Culture With Re [facility] Urinalysis macro (dipstick) panel (U)on 03-25-2024 Bilirubin, UA Negative Negative - 4(70) +++ mg/dL [facility] Blood, UA Negative Negative - 50 Andrew/mcL [facility] Clarity, UA Clear [facility] Color, UA Yellow [facility] Glucose, UA Negative Negative - 2000(110) ++++ mg/dL [facility] Interpretation and review of laboratory results Abnormal [facility] Ketones, UA Positive Negative - 160(16) ++++ mg/dL [facility] Comment on above: trace Leukocytes, UA Trace Negative - 500+++ Lore/mcL [facility] Nitrite, UA Negative Negative - Positive [facility] pH, UA 6.5 5 - 9 [facility] Protein, UA Positive Negative - 2000(20) ++++ mg/dL [facility] Comment on above: 30mg Spec Grav, UA 1.025 1 - 1.03 [facility] Urobilinogen, UA 1.0 0.2 - 12 mg/dL [facility] Urinalysis macro (dipstick) panel (U)on 03-10-2024 Bilirubin, UA Positive Negative - 4(70) +++ mg/dL [facility] Comment on above: small Blood, UA Negative Negative - 50 Andrew/mcL [facility] Clarity, UA Clear [facility] Color, UA Yellow [facility] Glucose, UA Negative Negative - 1999(110) ++++ mg/dL [facility] Interpretation and review of laboratory results Abnormal [facility] Ketones, UA Positive Negative - 160(16) ++++ mg/dL [facility] Comment on above: trace Leukocytes, UA Negative Negative - 500+++ Lore/mcL [facility] Nitrite, UA Negative Negative - Positive [facility] pH, UA 6 5 - 9 [facility] Protein, UA Positive Negative - 1999(20) ++++ mg/dL [facility] Comment on above: 30 Spec Grav, UA 1.025 1 - 1.03 [facility] Urobilinogen, UA 1.0 0.2 - 12 mg/dL [facility] MLR HEMOGLOBIN A1Con 024 Glucose [Mass/Vol] 114 mg/dL [facility] HbA1c (Bld) [Mass fraction] 5.6 % 4.5 - 6.2 % [facility] Comment on above: ADA RECOMMENDED LIMI T 4.0 - 6.0 ADA THERAPEUTIC TARGET < 7.0 ACTION SUGGESTED > 7.0 [facility] Urinalysis macro (dipstick) panel (U)on 02-20-2024 Bilirubin, UA Positive Negative - 4(70) +++ mg/dL [facility] Comment on above: small Blood, UA Negative Negative - 50 Andrew/mcL [facility] Clarity, UA Clear [facility] Color, UA Yellow [facility] Glucose, UA Negative Negative - 1999(110) ++++ mg/dL [facility] Interpretation and review of laboratory results Abnormal [facility] Ketones, UA Positive Negative - 160(16) ++++ mg/dL [facility] Comment on above: trace Leukocytes, UA Negative Negative - 500+++ Lore/mcL [facility] Nitrite, UA Negative Negative - Positive [facility] pH, UA 6 5 - 9 [facility] Protein, UA Trace Negative - 1999(20) ++++ mg/dL [facility] Spec Grav, UA 1.03 1 - 1.03 [facility] Urobilinogen, UA 1.0 0.2 - 12 mg/dL [facility] Urinalysis macro (dipstick) panel (U)on 01-10-2024 Bilirubin, UA Negative Negative - 4(70) +++ mg/dL [facility] Blood, UA Negative Negative - 50 Andrew/mcL [facility] Clarity, UA Clear [facility] Color, UA Yellow [facility] Glucose, UA Negative Negative - 1999(110) ++++ mg/dL [facility] Interpretation and review of laboratory results Normal [facility] Ketones, UA Negative Negative - 160(16) ++++ mg/dL [facility] Leukocytes, UA Negative Negative - 500+++ Lore/mcL [facility] Nitrite, UA Negative Negative - Positive [facility] pH, UA 5.5 5 - 9 [facility] Protein, UA Negative Negative - 1999(20) ++++ mg/dL [facility] Spec Grav, UA 1.02 1 - 1.03 [facility] Urobilinogen, UA 1.0 0.2 - 12 mg/dL [facility] URETHRITIS/DISCHARGE PLUS VA GINITIS (HTRX)on 12-14-2023 ATOPOBIUM VAGINAE 0.000 [facility] ATOPOBIUM VAGINAE Not detected [facility] BVAB 2,3 (BACTERIAL VAGINOSIS ASSOCIATED BACTERIA 2, 3); MOBILUNCUS SPP 26.743 Abnormal [facility] BVAB 2,3 (BACTERIAL VAGINOSIS ASSOCIATED BACTERIA 2, 3); MOBILUNCUS SPP Detected Abnormal [facility] SANJIV ALBICANS, PARAPSILOSIS, TROPICALIS 0.000 [facility] SANJIV ALBICANS, PARAPSILOSIS, TROPICALIS Not detected [facility] SANJIV GLABRATA 0.000 [facility] SANJIV GLABRATA Not detected [facility] SANJIV KRUSEI 0.000 [facility] SANJIV KRUSEI Not detected [facility] CHLAMYDIA TRACHOMATIS 0.000 [facility] CHLAMYDIA TRACHOMATIS Not detected [facility] GARDNERELLA VAGINALIS 0.000 [facility] GARDNERELLA VAGINALIS Not detected [facility] Interpretation and review of laboratory results Abnormal [facility] MEGASPHAERA (TYPES 1, 2) 0.000 [facility] MEGASPHAERA (TYPES 1, 2) Not detected [facility] MYCOPLASMA GENITALIUM 0.000 [facility] MYCOPLASMA GENITALIUM Not detected [facility] NEISSERIA GONORRHOEAE 0.000 [facility] NEISSERIA GONORRHOEAE Not detected [facility] TRICHOMONAS VAGINALIS 0.000 [facility] TRICHOMONAS VAGINALIS Not detected [facility] Urinalysis macro (dipstick) panel (U)on 12-13-2023 Bilirubin, UA Negative Negative - 4(70) +++ mg/dL [facility] Blood, UA Negative Negative - 50 Andrew/mcL [facility] Clarity, UA Clear [facility] Color, UA Yellow [facility] Glucose, UA Negative Negative - 1999(110) ++++ mg/dL [facility] Interpretation and review of laboratory results Abnormal [facility] Ketones, UA Positive Negative - 160(16) ++++ mg/dL [facility] Comment on above: trace Leukocytes, UA Negative Negative - 500+++ Lore/mcL [facility] Nitrite, UA Negative Negative - Positive [facility] pH, UA 6.5 5 - 9 [facility] Protein, UA Negative Negative - 1999(20) ++++ mg/dL [facility] Spec Grav, UA 1.025 1 - 1.03 [facility] Urobilinogen, UA 1.0 0.2 - 12 mg/dL [facility] Urinalysis macro (dipstick) panel (U)on 11-15-2023 Bilirubin, UA Negative Negative - 4(70) +++ mg/dL [facility] Blood, UA Negative Negative - 50 Andrew/mcL [facility] Clarity, UA Clear [facility] Color, UA Yellow [facility] Glucose, UA Negative Negative - 1999(110) ++++ mg/dL [facility] Interpretation and review of laboratory results Normal [facility] Ketones, UA Negative Negative - 160(16) ++++ mg/dL [facility] Leukocytes, UA Negative Negative - 500+++ Lore/mcL [facility] Nitrite, UA Negative Negative - Positive [facility] pH, UA 5.5 5 - 9 [facility] Protein, UA Negative Negative - 1999(20) ++++ mg/dL [facility] Spec Grav, UA 1.020 1 - 1.03 [facility] Urobilinogen, UA 1.0 0.2 - 12 mg/dL [facility] ALL CBC WITH AUTO DIFFon BASOPHILS ABSOLUTE AUTO 0.0 [facility] Basophils/100 WBC (Bld) 0.4 % 0.2 - 2.0 % [facility] Eosinophils/100 WBC (Bld) 3.0 % 0.9 - 7.0 % [facility] Erythrocyte distribution width (RBC) [Ratio] 16.1 % High 11.0 - 15.0 % [facility] Hematocrit (Bld) [Volume fraction] 36.3 % 36.0 - 48.0 % [facility] Hemoglobin (Bld) [Mass/Vol] 11.4 g/dL Low 12.0 - 16.0 g/dL [facility] IMMATURE GRANULOCYTES ABS AUTO 0.03 [facility] Immature granulocytes/100 WBC (Bld) 0.3 % 0.0 - 0.5 % [facility] Interpretation and review of laboratory results Abnormal [facility] LYMPHOCYTES ABSOLUTE AUTO 2.2 [facility] Lymphocytes/100 WBC (Bld) 23.6 % 20.5 - 60.0 % [facility] MCH (RBC) [Entitic mass] 26.0 pg Low 26.7 - 34.0 pg [facility] MCHC (RBC) [Mass/Vol] 31.4 g/dL 29.9 - 35.2 g/dL [facility] MCV (RBC) [Entitic vol] 82.9 fL 81.0 - 99.0 fL [facility] MONOCYTES ABSOLUTE AUTO 0.5 [facility] Monocytes/100 WBC (Bld) 5.1 % 1.7 - 12.0 % [facility] NEUTROPHILS ABSOLUTE AUTO 6.2 [facility] Neutrophils/100 WBC (Bld) 67.6 % 43.0 - 75.0 % [facility] Platelet mean volume (Bld) [Entitic vol] 11.0 fL 9.5 - 13.5 fL [facility] EO # 0.3 [facility] PLT 271 [facility] RBC 4.38 [facility] WBC 9.2 [facility] Cytology Cervical or vaginal smear or scraping studyon 03-08-2023 [facility] CHLAMYDIA/GONOCOCCUS JESE ( AB/URINE/PAPon 06-01-2022 Chlamydia trachomatis, JESE Negative Normal Negative [facility] Comment on above: Performed By: #### P TT, PT #### [facility] [address] [place] [address] Dr. Todd Moreno Neisseria gonorrhoeae, JESE Negative Normal Negative [facility] Comment on above: Performed By: #### P TT, PT #### [facility] [address] [place] [address] [address] Todd Moreno VAGINITIS/VAGINOSIS DNA PROB Shaheed 06-01-2022 Sanjiv species Negative Normal Negative [facility] Comment on above: Performed By: #### P TT, PT #### [facility] [address] [place] [address] Dr. Todd Moreno Gardnerella vaginalis Negative Normal Negative [facility] Comment on above: Performed By: #### P TT, PT #### [facility] [address] [place] [address] Dr. Todd Moreno Trichomonas vaginalis Negative Normal Negative [facility] Comment on above: Performed By: #### P TT, PT #### [facility] [address] [place] [address] Dr. Todd Moreno HEP B SURFACE ANTIGEN SCREEN on 03-22-2022 HBsAg Screen Negative Normal Negative [facility] Comment on above: Performed By: #### H BSANS #### [facility] [address] [place] [address] Dr. Todd Moreno HEPATITIS C VIRUS AB W/ REFL EX QUANTon 03-22-2022 HCV AB 0.1 s/co ratio Normal 0.0-0.9 [facility] Comment on above: Performed By: #### P TT, PT #### [facility] [address] [place] [address] Dr. Todd Moreno Interpretation: Comment Normal [facility] Comment on above: Result Comment: Nega tive Not infected with HCV, unless recent infection is suspected or other evidence exists to indicate HCV infection. Performed By: #### P TT, PT #### [facility] [address] [place] [address] Dr. Todd Moreno HIV 1 AND 2 WITH REFLEXon HIV Screen 4th Generation wRfx Non-Reactive Normal Non Reactive [facility] Comment on above: Result Comment: HIV Negative HIV-1/HIV-2 antibodies and HIV-1 p24 antigen were NOT detected. There is no laboratory evidence of HIV infection. Performed By: #### H IV12 #### [facility] [address] [place] [address] Dr. Todd Moreno RPR QUANTon 03-22-2022 Rapid Plasma Reagin, Quant Non-Reactive Normal NonRea<1:1 [facility] Comment on above: Result Comment: Luis E dias Note: This test does not meet current guidelines for screening and diagnosis of syphilis. This test is intended for following treatment response in patients being treated for syphilis infection. To screen for syphilis infection, a reflex cascade that includes both RPR and a treponema-specific assay should be utilized, such as Treponema pallidum (Syphilis) Screening [place] (210543) or Rapid Plasma Reagin (RPR) Test With Reflex to Quantitative RPR and Confirmatory Treponema pallidum Antibodies (590938). Performed By: #### R PRQ #### [facility] [address] [place] [address] Dr. Todd Moreno RUBELLA AB IGGon 03-22-2022 Rubella Antibodies, IgG 5.11 index Normal Immune >0.99 [facility] Comment on above: Result Comment: Non- immune <0.90 Equivocal 0.90 - 0.99 Immune >0.99 Performed By: #### R PRQ #### [facility] [address] [place] [place] [address] Dr. Todd Moreno CBC AUTO DIFFon 03-20-2022 BASO # 0.0 103/ul Normal 0.0-0.1 [facility] Comment on above: Performed By: #### P TT, PT #### [facility] [address] [place] [address] Dr. Todd Moreno Basophils/100 WBC (Bld) 0.3 % Normal 0.2-2.0 [facility] Comment on above: Performed By: #### P TT, PT #### [facility] [address] [place] [address] Dr. Todd Moreno EO # 0.1 103/ul Normal 0.0-0.7 [facility] Comment on above: Performed By: #### P TT, PT #### [facility] [address] [place] [address] Dr. Todd Moreno Eosinophils/100 WBC (Bld) 1.0 % Normal 0.9-7.0 [facility] Comment on above: Performed By: #### P TT, PT #### [facility] [address] [place] [address] Dr. Todd Moreno Erythrocyte distribution width (RBC) [Ratio] 14.4 % Normal 11.0-15.0 [facility] Comment on above: Performed By: #### P TT, PT #### [facility] [address] [place] [address] Dr. Todd Moreno Hematocrit (Bld) [Volume fraction] 38.2 % Normal 36.0-48.0 [facility] Comment on above: Performed By: #### P TT, PT #### [facility] [address] [place] [address] Dr. Todd Moreno Hemoglobin (Bld) [Mass/Vol] 12.2 g/dL Normal 12.0-16.0 [facility] Comment on above: Performed By: #### P TT, PT #### [facility] [address] [place] [address] Dr. Todd Moreno IG # 0.03 10e3/ul Normal 0.00-0.03 [facility] Comment on above: Performed By: #### P TT, PT #### [facility] [address] [place] [address] Dr. Todd Moreno IG % 0.3 % Normal 0.0-0.5 [facility] Comment on above: Performed By: #### P TT, PT #### [facility] [address] [place] [address] Dr. Todd Moreno LYMPH # 1.9 103/ul Normal 1.2-3.8 [facility] Comment on above: Performed By: #### P TT, PT #### [facility] [address] [place] [address] Dr. Todd Moreno Lymphocytes/100 WBC (Bld) 19.0 % Critically low 20.5-60.0 [facility] Comment on above: Performed By: #### P TT, PT #### [facility] [address] [place] [address] Dr. Todd Moreno MANUAL DIFF REQ NO Normal [facility] Comment on above: Performed By: #### P TT, PT #### [facility] [address] [place] [address] Dr. Todd Moreno MCH (RBC) [Entitic mass] 26.1 pg Critically low 26.7-34.0 [facility] Comment on above: Performed By: #### P TT, PT #### [facility] [address] [place] [address] Dr. Todd Moreno MCHC (RBC) [Mass/Vol] 31.9 g/dL Normal 29.9-35.2 [facility] Comment on above: Performed By: #### P TT, PT #### [facility] [address] [place] [address] Dr. Todd Moreno MCV (RBC) [Entitic vol] 81.6 fL Normal 81.0-99.0 [facility] Comment on above: Performed By: #### P TT, PT #### [facility] [address] [place] [address] Dr. Todd Moreno MONO # 0.4 103/ul Normal 0.3-0.8 [facility] Comment on above: Performed By: #### P TT, PT #### [facility] [address] [place] [address] Dr. Todd Moreno Monocytes/100 WBC (Bld) 4.4 % Normal 1.7-12.0 [facility] Comment on above: Performed By: #### P TT, PT #### [facility] [address] [place] [address] Dr. Todd Moreno NEUT # 7.5 103/ul Critically high 1.4-6.5 [facility] Comment on above: Performed By: #### P TT, PT #### [facility] [address] [place] [address] Dr. Todd Moreno Neutrophils/100 WBC (Bld) 75.0 % Normal 43.0-75.0 [facility] Comment on above: Performed By: #### P TT, PT #### [facility] [address] [place] [address] Dr. Todd Moreno Platelet mean volume (Bld) [Entitic vol] 10.4 fL Normal 9.5-13.5 [facility] Comment on above: Performed By: #### P TT, PT #### [facility] [address] [place] [address] Dr. Todd Moreno PLT 302 103/ul Normal 150-450 [facility] Comment on above: Performed By: #### P TT, PT #### [facility] [address] [place] [address] Dr. Todd Moreno RBC 4.68 106/ul Normal 4.20-5.40 [facility] Comment on above: Performed By: #### P TT, PT #### [facility] [address] [place] [address] Dr. Todd Moreno WBC 10.1 103/ul Normal 4.0-11.0 [facility] Comment on above: Performed By: #### P TT, PT #### [facility] [address] [place] [address] Dr. Todd Moreno CULTURE URINEon 03-20-2022 CULTURE URINE Culture Observations : MODERATE GROWTH OF MIXED GENITAL LORA. NO POTENTIAL PATHOGENS SEEN. Normal [facility] Comment on above: Performed By: #### P TT, PT #### [facility] [address] [place] [address] Dr. Todd Moreno GLYCOHEMOGLOBIN A1Con 2022 ADA RECOMMENDATION SEE BELOW Normal [facility] Comment on above: Result Comment: ADA RECOMMENDED LIMIT 4.0 - 6.0 ADA THERAPEUTIC TARGET < 7.0 ACTION SUGGESTED > 7.0 Performed By: #### A 1C #### [facility] [address] [place] [address] Dr. Todd Moreno Glucose [Mass/Vol] 105 mg/dL Normal [facility] Comment on above: Performed By: #### A 1C #### [facility] [address] [place] [address] Dr. Todd Moreno HbA1c (Bld) [Mass fraction] 5.3 % Normal 4.5-6.2 [facility] Comment on above: Performed By: #### A 1C #### [facility] [address] [place] [address] [address] Todd Moreno BENJAMIN BOX TEST PT SEND OUTo n 03-20-2022 SENT TO REF LAB 03/20/2022 Normal [facility] Comment on above: Performed By: #### P TT, PT #### [facility] [address] [place], [place] [address] Dr. Todd Moreno TYPE AND SCREENon 03-20-2022 TYPE AND SCREEN Negative Normal [facility] Comment on above: Performed By: #### P TT, PT #### [facility] [address] [place], [place] [address] Dr. Todd Moreno US PREG TVon 02-24-2022 [...] by: CARIDAD DOBSON Date: 2022-02-24 16:16 Normal [facility] CULTURE URINEon 02-03-2022 CULTURE URINE Isolate [...] F Oxacillin 0.5 S F Normal [facility] Comment on above: Performed By: #### P TT, PT #### [facility] [address] [place] [address] [address] Todd Moreno US PREG TVon 02-01-2022 [...] ETHAN MERCER Date: 2022-01-31 22:05 Normal [facility] CBC AUTO DIFFon 01-31-2022 BASO # 0.1 103/ul Normal 0.0-0.1 [facility] Comment on above: Performed By: #### P TT, PT #### [facility] [address] [address] [address] Todd Moreno Basophils/100 WBC (Bld) 0.8 % Normal 0.2-2.0 [facility] Comment on above: Performed By: #### P TT, PT #### [facility] [address] [place] [address] Dr. Todd Moreno EO # 0.5 103/ul Normal 0.0-0.7 [facility] Comment on above: Performed By: #### P TT, PT #### [facility] [address] [place] [address] Dr. Todd Moreno Eosinophils/100 WBC (Bld) 5.4 % Normal 0.9-7.0 [facility] Comment on above: Performed By: #### P TT, PT #### [facility] [address] [place] [address] Dr. Todd Moreno Erythrocyte distribution width (RBC) [Ratio] 15.0 % Normal 11.0-15.0 [facility] Comment on above: Performed By: #### P TT, PT #### [facility] [address] [place] [address] Dr. Todd Moreno Hematocrit (Bld) [Volume fraction] 34.3 % Critically low 36.0-48.0 [facility] Comment on above: Performed By: #### P TT, PT #### [facility] [address] [place] [address] Dr. Todd Moreno Hemoglobin (Bld) [Mass/Vol] 11.2 g/dL Critically low 12.0-16.0 [facility] Comment on above: Performed By: #### P TT, PT #### [facility] [address] [place] [address] Dr. Todd Moreno IG # 0.02 10e3/ul Normal 0.00-0.03 [facility] Comment on above: Performed By: #### P TT, PT #### [facility] [address] [place] [address] Dr. Todd Moreno IG % 0.2 % Normal 0.0-0.5 [facility] Comment on above: Performed By: #### P TT, PT #### [facility] [address] [place] [address] Dr. Todd Moreno LYMPH # 2.7 103/ul Normal 1.2-3.8 [facility] Comment on above: Performed By: #### P TT, PT #### [facility] [address] [place] [address] Dr. Todd Moreno Lymphocytes/100 WBC (Bld) 29.9 % Normal 20.5-60.0 [facility] Comment on above: Performed By: #### P TT, PT #### [facility] [address] [place] [address] Dr. Todd Moreno MANUAL DIFF REQ NO Normal [facility] Comment on above: Performed By: #### P TT, PT #### [facility] [address] [place] [address] Dr. Todd Moreno MCH (RBC) [Entitic mass] 26.7 pg Normal 26.7-34.0 [facility] Comment on above: Performed By: #### P TT, PT #### [facility] [address] [place] [address] Dr. Todd Moreno MCHC (RBC) [Mass/Vol] 32.7 g/dL Normal 29.9-35.2 [facility] Comment on above: Performed By: #### P TT, PT #### [facility] [address] [place] [address] Dr. Todd Moreno MCV (RBC) [Entitic vol] 81.7 fL Normal 81.0-99.0 [facility] Comment on above: Performed By: #### P TT, PT #### [facility] [address] [place] [address] Dr. Todd Moreno MONO # 0.5 103/ul Normal 0.3-0.8 [facility] Comment on above: Performed By: #### P TT, PT #### [facility] [address] [place] [address] Dr. Todd Moreno Monocytes/100 WBC (Bld) 5.7 % Normal 1.7-12.0 [facility] Comment on above: Performed By: #### P TT, PT #### [facility] [address] [place] [address] Dr. Todd Moreno NEUT # 5.2 103/ul Normal 1.4-6.5 [facility] Comment on above: Performed By: #### P TT, PT #### [facility] [address] [place] [address] Dr. Todd Moreno Neutrophils/100 WBC (Bld) 58.0 % Normal 43.0-75.0 [facility] Comment on above: Performed By: #### P TT, PT #### [facility] [address] [place] [address] Dr. Todd Moreno Platelet mean volume (Bld) [Entitic vol] 10.4 fL Normal 9.5-13.5 [facility] Comment on above: Performed By: #### P TT, PT #### [facility] [address] [place] [address] Dr. Todd Moreno PLT 270 103/ul Normal 150-450 [facility] Comment on above: Performed By: #### P TT, PT #### [facility] [address] [place] [address] Dr. Todd Moreno RBC 4.20 106/ul Normal 4.20-5.40 [facility] Comment on above: Performed By: #### P TT, PT #### [facility] [address] [place] [address] Dr. Todd Moreno WBC 9.1 103/ul Normal 4.0-11.0 [facility] Comment on above: Performed By: #### P TT, PT #### [facility] [address] [place] [address] Dr. Todd Moreno ER URINE PROFILEon 2 Bilirubin Ql (U) Negative Normal NEGATIVE [facility] Comment on above: Performed By: #### P TT, PT #### [facility] [address] [place] [address] Dr. Todd Moreno Clarity (U) CLEAR Normal CLEAR [facility] Comment on above: Performed By: #### P TT, PT #### [facility] [address] [place] [address] Dr. Todd Moreno Color (U) YELLOW Normal YELLOW [facility] Comment on above: Performed By: #### P TT, PT #### [facility] [address] [place] [address] Dr. Todd SALINAS A micrscopic examination will be performed if indicated. Normal [facility] Comment on above: Performed By: #### P TT, PT #### [facility] [address] [address] [address] Todd Moreno Glucose Ql (U) Negative Normal NEGATIVE [facility] Comment on above: Performed By: #### P TT, PT #### [facility] [address] [place] [address] Dr. Todd Moreno Hemoglobin Ql (U) TRACE-INTACT Abnormal NEGATIVE [facility] Comment on above: Performed By: #### P TT, PT #### [facility] [address] [place] [address] Dr. Todd Moreno Ketones Ql (U) Negative Normal NEGATIVE [facility] Comment on above: Performed By: #### P TT, PT #### [facility] [address] [place] [address] Dr. Todd Moreno LEUKOCYTES SMALL Abnormal NEGATIVE [facility] Comment on above: Performed By: #### P TT, PT #### [facility] [address] [place] [address] Dr. Todd Moreno Nitrite Ql (U) Negative Normal NEGATIVE [facility] Comment on above: Performed By: #### P TT, PT #### [facility] [address] [place] [address] Dr. Todd Moreno pH (U) 6.5 [pH] Normal 5-9 [facility] Comment on above: Performed By: #### P TT, PT #### [facility] [address] [place] [address] Dr. Todd Moreno SPEC GRAVITY 1.015 Normal 1.005-<=1.025 [facility] Comment on above: Performed By: #### P TT, PT #### [facility] [address] [place] [address] Dr. Todd Moreno UA PROTEIN Negative Normal NEGATIVE/ TRACE [facility] Comment on above: Performed By: #### P TT, PT #### [facility] [address] [place] [address] Dr. Todd Moreno UR MICRO IND INDICATED Normal [facility] Comment on above: Performed By: #### P TT, PT #### [facility] [address] [place] [address] Dr. Todd Moreno Urobilinogen Qn (U) 0.2 {Tiffany'U}/dL Normal 0.2 - 1. 0 [facility] Comment on above: Performed By: #### P TT, PT #### [facility] [address] [place] [address] Dr. Todd Moreno LIPASEon 01-31-2022 Lipase [Catalytic activity/Vol] 123.0 U/L Normal 73.0-393.0 [facility] Comment on above: Performed By: #### C MP, LIPA #### [facility] [address] [place] [address] Dr. Todd Moreno PREG QUANT HCGon 01-31-2022 HCG QUANT 711 mIU/mL Normal [facility] Comment on above: Performed By: #### P TT, PT #### [facility] [address] [place] [address] Dr. Todd Moreno HCG RANGE SEE BELOW Normal [facility] Comment on above: Result Comment: 5-50 0.2-1 WEEK 50-500 1-2 WEEKS 100-5,000 2-3 WEEKS 500-10,000 3-4 WEEKS 1,000-50,000 4-5 WEEKS 10,000-100,000 5-6 WEEKS 15,000-200,000 6-8 WEEKS 10,000-100,000 2-3 MONTHS Performed By: #### P TT, PT #### [facility] [address] [place] [address] Dr. Todd Moreno PROF 14(COMP METB)on 022 Albumin [Mass/Vol] 3.7 g/dL Normal 3.4-5.0 [facility] Comment on above: Performed By: #### C MP, LIPA #### [facility] [address] [place] [address] Dr. Todd Moreno Albumin/Globulin [Mass ratio] 1.0 {ratio} Normal [facility] Comment on above: Performed By: #### C MP, LIPA #### [facility] [address] [address] [address] Todd Moreno ALP [Catalytic activity/Vol] 80 U/L Normal 46-116 [facility] Comment on above: Performed By: #### C MP, LIPA #### [facility] [address] [address] [address] Todd Moreno ALT [Catalytic activity/Vol] 23 U/L Normal 14-59 [facility] Comment on above: Performed By: #### C MP, LIPA #### [facility] [address] [address] [address] Todd Moreno Anion gap [Moles/Vol] 10.2 mmol/L Normal [facility] Comment on above: Performed By: #### C MP, LIPA #### [facility] [address] [address] [address] Todd Moreno AST [Catalytic activity/Vol] 14 U/L Critically low 15-37 [facility] Comment on above: Performed By: #### C MP, LIPA #### [facility] [address] [address] [address] Todd Moreno Bilirubin [Mass/Vol] 0.3 mg/dL Normal 0.2-1.0 [facility] Comment on above: Performed By: #### C MP, LIPA #### [facility] [address] [address] [address] Todd Moreno Calcium [Mass/Vol] 9.1 mg/dL Normal 8.5-10.1 [facility] Comment on above: Performed By: #### C MP, LIPA #### [facility] [address] [address] [address] Todd Moreno Chloride [Moles/Vol] 104 mmol/L Normal 98-107 [facility] Comment on above: Performed By: #### C MP, LIPA #### [facility] [address] [address] [address] Todd Moreno CO2 [Moles/Vol] 26.8 mmol/L Normal 21.0-32.0 [facility] Comment on above: Performed By: #### C MP, LIPA #### [facility] [address] [address] [address] Todd Moreno Creatinine [Mass/Vol] 0.87 mg/dL Normal 0.55-1.02 [facility] Comment on above: Performed By: #### C MP, LIPA #### [facility] [address] [address] [address] Todd Moreno EGFR-AF BELARUSIAN >60 Normal >=60 [facility] Comment on above: Performed By: #### C MP, LIPA #### [facility] [address] [address] [address] Todd Moreno EGFR-NON AF BELARUSIAN >60 Normal >=60 [facility] Comment on above: Performed By: #### C MP, LIPA #### [facility] [address] [address] [address] Todd Moreno Globulin (S) [Mass/Vol] 3.7 g/dL Normal [facility] Comment on above: Performed By: #### C MP, LIPA #### [facility] [address] [address] [address] Todd Moreno Glucose [Mass/Vol] 98 mg/dL Normal 74-106 [facility] Comment on above: Performed By: #### C MP, LIPA #### [facility] [address] [address] [address] Todd Moreno Potassium [Moles/Vol] 4.0 mmol/L Normal 3.5-5.1 [facility] Comment on above: Performed By: #### C MP, LIPA #### [facility] [address] [address] [address] Todd Moreno Protein [Mass/Vol] 7.4 g/dL Normal 6.4-8.2 [facility] Comment on above: Performed By: #### C MP, LIPA #### [facility] [address] [address] [address] Todd Moreno Sodium [Moles/Vol] 137 mmol/L Normal 136-145 [facility] Comment on above: Performed By: #### C MP, LIPA #### [facility] [address] [place] [address] Dr. Todd Moreno Urea nitrogen [Mass/Vol] 15.0 mg/dL Normal 7.0-18.0 [facility] Comment on above: Performed By: #### C MP, LIPA #### [facility] [address] [place] [address] Dr. Todd Moreno Urea nitrogen/Creatinine [Mass ratio] 17.2 mg/mg Normal [facility] Comment on above: Performed By: #### C MP, LIPA #### [facility] [address] [place] [address] Dr. Todd Moreno URINE MICROSCOPIC ONLYon BACTERIA SMALL Abnormal NONE SEEN [facility] Comment on above: Performed By: #### P TT, PT #### [facility] [address] [place] [address] Dr. Todd Moreno Bacteria identified Cx Nom (U) INDICATED Normal [facility] Comment on above: Performed By: #### P TT, PT #### [facility] [address] [place] [address] Dr. Todd Moreno CAST NONE SEEN Normal NONE SEEN [facility] Comment on above: Performed By: #### P TT, PT #### [facility] [address] [place] [address] Dr. Todd Moreno Crystals LM Nom (Urine sed) NONE SEEN Normal NONE SEEN [facility] Comment on above: Performed By: #### P TT, PT #### [facility] [address] [place] [address] Dr. Todd Moreno Epithelial cells LM Ql (Urine sed) FEW Abnormal NONE SEEN /RARE [facility] Comment on above: Performed By: #### P TT, PT #### [facility] [address] [place] [address] Dr. Todd Moreno MUCOUS NONE SEEN Normal NONE SEEN [facility] Comment on above: Performed By: #### P TT, PT #### [facility] [address] [place] [address] Dr. Todd Moreno RBC 0-2 Normal 0-2 [facility] Comment on above: Performed By: #### P TT, PT #### [facility] [address] [place] [address] Dr. Todd Moreno WBC 10-20 Abnormal NONE SEEN [facility] Comment on above: Performed By: #### P TT, PT #### [facility] [address] [place] [address] Dr. Todd Moreno ESTROGENon 10-20-2021 Estrogens, Total 68 pg/mL Normal [facility] Comment on above: Result Comment: Prep ubertal < 40 Female Cycle: 1-10 Days 16 - 328 11-20 Days 34 - 501 21-30 Days 48 - 350 Post-Menopausal 40 - 244 Performed By: #### P TT, PT #### [facility] [address] [place] [address] Dr. Todd Moreno ESTRADIOLon 10-16-2021 Estradiol 62.1 pg/mL Normal [facility] Comment on above: Result Comment: Adul t Female: Follicular phase 12.5 - 166.0 Ovulation phase 85.8 - 498.0 Luteal phase 43.8 - 211.0 Postmenopausal <6.0 - 54.7 1st trimester 215.0 - >4300.0 Ramos ECLIA methodology Performed By: #### E STRADI #### [facility] [address] [place] [address] Dr. Todd Moreno FSHon 10-16-2021 FSH 5.6 mIU/mL Normal [facility] Comment on above: Result Comment: Adul t Female: Follicular phase 3.5 - 12.5 Ovulation phase 4.7 - 21.5 Luteal phase 1.7 - 7.7 Postmenopausal 25.8 - 134.8 Performed By: #### P TT, PT #### [facility] [address] [place] [address] Dr. Todd Moreno LUTEINIZING HORMONE (LH)on 0 10-16-2021 LH 12.1 mIU/mL Normal [facility] Comment on above: Result Comment: Adul t Female: Follicular phase 2.4 - 12.6 Ovulation phase 14.0 - 95.6 Luteal phase 1.0 - 11.4 Postmenopausal 7.7 - 58.5 Performed By: #### P TT, PT #### [facility] [address] [place] [address] Dr. Todd Moreno CBC AUTO DIFFon 10-15-2021 BASO # 0.0 103/ul Normal 0.0-0.1 [facility] Comment on above: Performed By: #### P TT, PT #### [facility] [address] [place] [address] Dr. Todd Moreno Basophils/100 WBC (Bld) 0.6 % Normal 0.2-2.0 [facility] Comment on above: Performed By: #### P TT, PT #### [facility] [address] [place] [address] Dr. Todd Moreno EO # 0.1 103/ul Normal 0.0-0.7 [facility] Comment on above: Performed By: #### P TT, PT #### [facility] [address] [place] [address] Dr. Todd Moreno Eosinophils/100 WBC (Bld) 2.1 % Normal 0.9-7.0 [facility] Comment on above: Performed By: #### P TT, PT #### [facility] [address] [place] [address] Dr. Todd Moreno Erythrocyte distribution width (RBC) [Ratio] 14.0 % Normal 11.0-15.0 [facility] Comment on above: Performed By: #### P TT, PT #### [facility] [address] [place] [address] Dr. Todd Moreno Hematocrit (Bld) [Volume fraction] 37.0 % Normal 36.0-48.0 [facility] Comment on above: Performed By: #### P TT, PT #### [facility] [address] [place] [address] Dr. Todd Moreno Hemoglobin (Bld) [Mass/Vol] 11.6 g/dL Critically low 12.0-16.0 [facility] [facility] Comment on above: Performed By: #### P TT, PT #### [facility] [address] [place] [address] Dr. Todd Moreno IG # 0.01 10e3/ul Normal 0.00-0.03 [facility] Comment on above: Performed By: #### P TT, PT #### [facility] [address] [place] [address] Dr. Todd Moreno IG % 0.2 % Normal 0.0-0.5 [facility] Comment on above: Performed By: #### P TT, PT #### [facility] [address] [place] [address] Dr. Todd Moreno LYMPH # 2.2 103/ul Normal 1.2-3.8 [facility] Comment on above: Performed By: #### P TT, PT #### [facility] [address] [place] [address] Dr. Todd Moreno Lymphocytes/100 WBC (Bld) 33.1 % Normal 20.5-60.0 [facility] Comment on above: Performed By: #### P TT, PT #### [facility] [address] [place] [address] Dr. Todd Moreno MANUAL DIFF REQ NO Normal [facility] Comment on above: Performed By: #### P TT, PT #### [facility] [address] [place] [address] Dr. Todd Moreno MCH (RBC) [Entitic mass] 26.3 pg Critically low 26.7-34.0 [facility] Comment on above: Performed By: #### P TT, PT #### [facility] [address] [place] [address] Dr. Todd Moreno MCHC (RBC) [Mass/Vol] 31.4 g/dL Normal 29.9-35.2 [facility] Comment on above: Performed By: #### P TT, PT #### [facility] [address] [place] [address] Dr. Todd Moreno MCV (RBC) [Entitic vol] 83.9 fL Normal 81.0-99.0 [facility] Comment on above: Performed By: #### P TT, PT #### [facility] [address] [place] [address] Dr. Todd Moreno MONO # 0.2 103/ul Critically low 0.3-0.8 [facility] Comment on above: Performed By: #### P TT, PT #### [facility] [address] [place] [address] Dr. Todd Moreno Monocytes/100 WBC (Bld) 3.5 % Normal 1.7-12.0 [facility] Comment on above: Performed By: #### P TT, PT #### [facility] [address] [place] [address] Dr. Todd Moreno NEUT # 4.0 103/ul Normal 1.4-6.5 [facility] Comment on above: Performed By: #### P TT, PT #### [facility] [address] [place] [address] Dr. Todd Moreno Neutrophils/100 WBC (Bld) 60.5 % Normal 43.0-75.0 [facility] Comment on above: Performed By: #### P TT, PT #### [facility] [address] [place] [address] Dr. Todd Moreno Platelet mean volume (Bld) [Entitic vol] 10.6 fL Normal 9.5-13.5 [facility] Comment on above: Performed By: #### P TT, PT #### [facility] [address] [place] [address] Dr. Todd Moreno PLT 263 103/ul Normal 150-450 [facility] Comment on above: Performed By: #### P TT, PT #### [facility] [address] [place] [address] Dr. Todd Moreno RBC 4.41 106/ul Normal 4.20-5.40 [facility] Comment on above: Performed By: #### P TT, PT #### [facility] [address] [place] [address] Dr. Todd Moreno WBC 6.6 103/ul Normal 4.0-11.0 [facility] Comment on above: Performed By: #### P TT, PT #### [facility] [address] [place] [address] Dr. Todd Moreno FREE T4on 10-15-2021 Free T4 [Mass/Vol] 1.05 ng/dL Normal 0.76-1.46 [facility] Comment on above: Performed By: #### P TT, PT #### [facility] [address] [place] [address] Dr. Todd Moreno PROTIMEon 10-15-2021 INR Coag (PPP) [Relative time] 1.02 {INR} Normal [facility] Comment on above: Performed By: #### P TT, PT #### [facility] [address] [place] [address] Dr. Todd Moreno INR GUIDELINES SEE BELOW Normal [facility] Comment on above: Result Comment: RAMÓN RED INR: 2.0 - 3.0 CONDITIONS NOT LISTED BELOW 2.5 - 3.5 FOR PROSTHETIC HEART VALVE REPLACEMENT 2.5 - 3.5 RECURRENT THROMBOSIS Performed By: #### P TT, PT #### [facility] [address] [place] [address] Dr. Todd Moreno PT Coag (PPP) [Time] 11.0 s Normal 9.0-11.6 [facility] Comment on above: Performed By: #### P TT, PT #### [facility] [address] [place] [address] Dr. Todd Moreno PTTon 10-15-2021 aPTT Coag (Bld) [Time] 32.4 s Normal 22.3-36.2 [facility] Comment on above: Performed By: #### P TT, PT #### [facility] [address] [place] [address] Dr. Todd Moreno TSHon 10-15-2021 TSH 1.777 uIU/mL Normal 0.358-3.740 [facility] Comment on above: Performed By: #### P TT, PT #### [facility] [address] [place] [address] Dr. Todd Moreno PAP ACOG PANEL 2: 30 to 65on 10-10-2021 . . Normal [facility] Comment on above: Result Comment: Perf ormed at: WB Performed By: #### [id number] #### [facility] [address] [address] [address] Todd Moreno Age Gdln ACOG Testing 30-65 Normal [facility] Comment on above: Performed By: #### [id number] #### [facility] [address] [address] [address] Todd Moreno DIAGNOSIS: Comment Normal [facility] Comment on above: Result Comment: NEGA TIVE FOR INTRAEPITHELIAL LESION OR MALIGNANCY. Performed at: WB Performed By: #### [id number] #### [facility] [address] [address] [address] Todd Moreno HPV Aptima Negative Normal Negative [facility] Comment on above: Result Comment: This nucleic acid amplification test detects fourteen high-risk HPV types (16,18,31,33,35,39,45,51,52,56,58,59,66,68) without differentiation. Performed at: =G Performed By: #### 4 [id number] #### [facility] [address] [address] [address] Todd Moreno Methodology: Comment Normal [facility] Comment on above: Result Comment: This liquid based ThinPrep(R) pap test was screened with the use of an image guided system. Performed at: WB Performed By: #### [id number] #### [facility] [address] [place] [address] Dr. Todd Moreno Note: Comment Normal [facility] Comment on above: Result Comment: The Pap smear is a screening test designed to aid in the detection of premalignant and malignant conditions of the uterine cervix. It is not a diagnostic procedure and should not be used as the sole means of detecting cervical cancer. Both false-positive and false-negative reports do occur. . Performed at: WB Performed By: #### [id number] #### [facility] [address] [address] [address] Todd Moreno Performed by: Comment Normal [facility] Comment on above: Result Comment: Magalie Lemus, Court Liaison (ASCP) Performed at: WB Performed By: #### [id number] #### [facility] [address] [address] [address] Todd Moreno Specimen adequacy: Comment Normal [facility] Comment on above: Result Comment: Sati sfactory for evaluation. Endocervical and/or squamous metaplastic cells (endocervical component) are present. Performed at: WB Performed By: #### 4 [id number] #### [facility] [address] [place], [place] [address] Dr. Todd Moreno COVID-19 Antigenon 2 COVID-19 [...] its performance Corinne Disclaimer characteristic determined by [employer] and Corinne Disclaimer validated at [facility]. This Corinne Disclaimer test has not [...] is terminated or revoked sooner. PERFORMED BY: [place] [address] PATHOLOGIST [employer] JONATHAN SHEPARD M.D. Normal [facility] Comment on above: Performed By: #### S OFIANEG, COVID-19 CORINNE #### [place] [address] [place] HCG,Urineon 03-30-2021 Beta HCG ( test) Ql (U) Negative [facility] Comment on above: Result Comment: PERF ORMED BY: [place] [address] PATHOLOGIST [employer] JIANLAN SUN M.D. Performed By: #### U HCG #### [address] Corinne Ag Negativeon 03-30-19 Corinne Ag Negative Negative Normal Negative [facility] Comment on above: Result Comment: This is a duplicate Corinne SARS Antigen (KAEL) result to be used for statistical tracking purpose only. PERFORMED BY: [place] [address] PATHOLOGIST [employer] JONATHAN SHEPARD M.D. Performed By: #### S OFIANEG, COVID-19 CORINNE #### [address] COVID-19 FRMCon 03-28-2021 SARS-CoV-2 (COVID-19) RNA JESE+probe Ql (Unsp spec) Negative Normal Negative [facility] Comment on above: Order Comment: Healt hcare Worker?: N Result Comment: Testing for SARS-CoV-2 by RT-PCR This test was developed and its performance characteristics determined by [employer]) and validated at the [facility]. This test has not been FDA [...] is terminated or revoked sooner. PERFORMED BY: [place] [address] PATHOLOGIST [employer] JONATHAN SHEPARD M.D. Performed By: #### C OVID 19 [facility] #### [address] XR elbow LT 2Von 03-01-2021 XR elbow LT 2V [facility] [address] [place] [address] XRay Report Signed Patient: Danyell Almaguer MR#: [id number] : 1985 Acct:[id number] Age/Sex: 35 / F ADM Date: 03/01/21 Loc: [facility] Room: Type: [facility] Attending Dr: Leandro Robles MD Ordering Provider: [...] Valdez Mcwilliams M.D.03/01/2021 1:47 PM Dictation Location: [place] [address] Transcribed By: [facility] 03/01/21 1347 Dictated By: Valdez Mcwilliams DO 03/01/21 1344 Signed By: 03/01/[address] [facility] XR FOREARM LEFT 2 VIEWSon XR [...] in 7 to 10 days. [facility] Workstation ID: [id number] Dictated by: MAR DAWSON on SunSep 08, 2020 11:41:42 PM EDT Transcribed by: SHERRILL SMYTH on SunSep 09, 2020 12:10:05 AM EDT Finalized by: MAR DAWSON on SunSep 09, 2020 12:16:26 AM EDT [facility] Comment on above: Order Comment: Injur [...] SunSep 08, 2020 11:42:00 PM EDT [facility] Comment on above: Order Comment: Injur y/Trauma or Illness?:Injury/Trauma How long have you had these symptoms (acute/chronic)?:Acute Reason for exam?:fall, pain to left shoulder radiating down arm History of cancer?:no Surgeries, chemotherapy, or radiation?:no Type of Exam?:Initial Mechanism of injury?:fall Vital Signs Date Time Vital Sign Value Performing Clinician Facility 05-07-2024 13:52-0500 Body mass index (BMI) [Ratio] 36.62 kg/m2 You James DO Work Phone: [facility] 05-07-2024 13:52-0500 Body weight 106.05 kg You James DO Work Phone: [facility] 05-07-2024 13:52-0500 Diastolic blood pressure 72 mm[Hg] You James DO Work Phone: [facility] 05-07-2024 13:52-0500 Systolic blood pressure 120 mm[Hg] You James DO Work Phone: [facility] 05-01-2024 15:15-0500 Body mass index (BMI) [Ratio] 36.49 kg/m2 You James DO Work Phone: [facility] 05-01-2024 15:15-0500 Body weight 105.69 kg You James DO Work Phone: [facility] 05-01-2024 15:15-0500 Diastolic blood pressure 82 mm[Hg] You James DO Work Phone: [facility] 05-01-2024 15:15-0500 Systolic blood pressure 120 mm[Hg] You James DO Work Phone: [facility] 04-24-2024 09:26-0500 Body mass index (BMI) [Ratio] 36.31 kg/m2 You James DO Work Phone: [facility] 04-24-2024 09:26-0500 Body weight 105.14 kg You James DO Work Phone: [facility] 04-24-2024 09:26-0500 Diastolic blood pressure 60 mm[Hg] You James DO Work Phone: [facility] 04-24-2024 09:26-0500 Systolic blood pressure 110 mm[Hg] You James DO Work Phone: [facility] 04-21-2024 10:04-0500 Body height 170.2 cm Valdo Fenton MD Work Phone: [facility] 04-21-2024 10:04-0500 Body mass index (BMI) [Ratio] 35.94 kg/m2 Valdo Fenton MD Work Phone: [facility] 04-21-2024 10:04-0500 Body weight 104.1 kg Valdo Fenton MD Work Phone: [facility] 04-21-2024 10:04-0500 Diastolic blood pressure 80 mm[Hg] Valdo Fenton MD Work Phone: [facility] 04-21-2024 10:04-0500 Heart rate 74 /min Valdo Fenton MD Work Phone: [facility] 04-21-2024 10:04-0500 SaO2% (BldA) [Mass fraction] 99 % Valdo Fenton MD Work Phone: [facility] 04-21-2024 10:04-0500 Systolic blood pressure 130 mm[Hg] Valdo Fenton MD Work Phone: [facility] 04-17-2024 11:20-0500 Body mass index (BMI) [Ratio] 35.96 kg/m2 Iveth MCGRATH Work Phone: [facility] 04-17-2024 11:20-0500 Body weight 104.15 kg Iveth MCGRATH Work Phone: [facility] 04-17-2024 11:20-0500 Diastolic blood pressure 68 mm[Hg] Iveth MCGRATH Work Phone: [facility] 04-17-2024 11:20-0500 Systolic blood pressure 110 mm[Hg] Iveth MCGRATH Work Phone: [facility] 04-09-2024 14:01-0500 Body mass index (BMI) [Ratio] 35.87 kg/m2 You James DO Work Phone: [facility] 04-09-2024 14:01-0500 Body weight 103.87 kg You James DO Work Phone: [facility] 04-09-2024 14:01-0500 Diastolic blood pressure 72 mm[Hg] You James DO Work Phone: [facility] 04-09-2024 14:01-0500 Systolic blood pressure 118 mm[Hg] You James DO Work Phone: [facility] 03-25-2024 14:23-0500 Body mass index (BMI) [Ratio] 35.71 kg/m2 Iveth Paresh PA Work Phone: [facility] 03-25-2024 14:23-0500 Body weight 103.42 kg Iveth Paresh PA Work Phone: [facility] 03-25-2024 14:23-0500 Diastolic blood pressure 70 mm[Hg] Iveth Paresh PA Work Phone: [facility] 03-25-2024 14:23-0500 Systolic blood pressure 108 mm[Hg] Iveth Paresh PA Work Phone: [facility] 02-20-2024 11:40-0500 Body mass index (BMI) [Ratio] 34.68 kg/m2 You James DO Work Phone: [facility] 02-20-2024 11:40-0500 Body weight 100.43 kg You James DO Work Phone: [facility] 02-20-2024 11:40-0500 Diastolic blood pressure 70 mm[Hg] You James DO Work Phone: [facility] 02-20-2024 11:40-0500 Systolic blood pressure 120 mm[Hg] You James DO Work Phone: [facility] 02-07-2024 11:42-0500 Body mass index (BMI) [Ratio] 34.3 kg/m2 Iveth Paresh PA Work Phone: [facility] 02-07-2024 11:42-0500 Body weight 99.34 kg Iveth Paresh PA Work Phone: [facility] 02-07-2024 11:42-0500 Diastolic blood pressure 70 mm[Hg] Iveth MCGRATH Work Phone: [facility] 02-07-2024 11:42-0500 Systolic blood pressure 118 mm[Hg] Iveth MCGRATH Work Phone: [facility] 01-10-2024 10:44-0400 Body mass index (BMI) [Ratio] 33.89 kg/m2 You James DO Work Phone: [facility] 01-10-2024 10:44-0400 Body weight 98.16 kg You James DO Work Phone: [facility] 01-10-2024 10:44-0400 Diastolic blood pressure 74 mm[Hg] You James DO Work Phone: [facility] 01-10-2024 10:44-0400 Systolic blood pressure 120 mm[Hg] You James DO Work Phone: [facility] 12-13-2023 10:51-0400 Body mass index (BMI) [Ratio] 33.33 kg/m2 You James DO Work Phone: [facility] 12-13-2023 10:51-0400 Body weight 96.53 kg You James DO Work Phone: [facility] 12-13-2023 10:51-0400 Diastolic blood pressure 80 mm[Hg] You James DO Work Phone: [facility] 12-13-2023 10:51-0400 Systolic blood pressure 126 mm[Hg] You James DO Work Phone: [facility] 11-15-2023 10:14-0400 Body mass index (BMI) [Ratio] 33.11 kg/m2 You James DO Work Phone: [facility] 11-15-2023 10:14-0400 Body weight 95.89 kg You James DO Work Phone: [facility] 11-15-2023 10:14-0400 Diastolic blood pressure 78 mm[Hg] You James DO Work Phone: [facility] 11-15-2023 10:14-0400 Systolic blood pressure 118 mm[Hg] You James DO Work Phone: [facility] 03-01-2021 11:00-0500 Body height 170.18 cm Leandro Robles Other [employer] Other 03-01-2021 11:00-0500 Body mass index (BMI) [Ratio] 30.07 kg/m2 Leandro Mckenziexa Other [employer] Other 03-01-2021 11:00-0500 Body weight 87.09 kg Leandro Mckenziexa Other [employer] Other Encounters Encounter Date Encounter Type Care Provider Facility Start: 05-08-2024 End: 05-08-2024 Clinisync Result Encounter Generic External Data Provider [facility] External [facility] Unsolicited Start: 05-08-2024 End: 05-08-2024 Clinisync Result Encounter Generic External Data Provider [facility] External [facility] Unsolicited Start: 05-07-2024 End: 05-07-2024 Bamboo flowsheet You James DO Work Phone: [facility] Start: 05-07-2024 End: 05-07-2024 Bamboo flowsheet You James DO Work Phone: [facility] Start: 05-07-2024 End: 05-07-2024 ambulatory YOU JAMES Not Available Start: 05-07-2024 End: 05-07-2024 flow sheet You James DO Work Phone: [facility] Comment on above: 40 weeks gestation o f ; Third trimester Start: 05-01-2024 End: 05-01-2024 flow sheet You James DO Work Phone: [facility] Comment on above: Third trimester preg rocky; 39 weeks gestation of Start: 05-01-2024 End: 05-01-2024 ambulatory YOU JAMES Not Available Start: 05-01-2024 End: 05-01-2024 Bamboo flowsheet You James DO Work Phone: [facility] Start: 05-01-2024 End: 05-01-2024 Bamboo flowsheet You Jamse DO Work Phone: [facility] Start: 04-25-2024 End: 04-25-2024 ambulatory ROB [facility] Start: 04-24-2024 End: 04-24-2024 Bamboo flowsheet You [...] unspecified type Start: 02-22-2024 End: 02-22-[address] [facility] Start: 02-20-2024 End: 02-20-2024 Bamboo flowsheet [...] trimester Start: 02-04-2024 End: 02-04-2024 ambulatory ROB [facility] Start: 01-30-2024 End: 01-30-[address] [facility] Start: 01-23-2024 End: 01-23-2024 Telephone encounter [...] Available Start: 01-07-2024 End: 01-07-2024 ambulatory ROB [facility] Start: 12-24-2023 End: 12-24-[address] [facility] Start: 12-13-2023 End: 12-13-2023 Bamboo flowsheet You James DO Work Phone: [facility] Start: 12-13-2023 End: 12-14-2023 Bamboo flowsheet You James DO Work Phone: [facility] Start: 12-13-2023 End: 12-14-2023 External Result Encounter You James DO Work Phone: [facility] External Department Unsolicited Start: 12-13-2023 End: 12-13-2023 ambulatory YOU JAMES Not Available Start: 12-13-2023 End: 12-13-2023 flow sheet You James DO Work Phone: [facility] Comment on above: 19 weeks gestation o f ; Exposure to STD; Vaginal discharge; Elevated glucose Start: 11-15-2023 End: 11-15-2023 Bamboo flowsheet You James DO Work Phone: [facility] Start: 11-15-2023 End: 11-15-2023 Bamboo flowsheet You James DO Work Phone: [facility] Start: 11-15-2023 End: 11-15-2023 ambulatory YOU JAMES Not Available Start: 11-15-2023 End: 11-15-2023 flow sheet You James DO Work Phone: [facility] Comment on above: Second trimester pre gnancy; History of gestational diabetes; Diabetes mellitus screening; Screening, , for anatomic survey Start: 11-07-2023 End: 11-07-2023 Clinisync Result Encounter Iveth MCGRATH Work Phone: [facility] External Department Unsolicited Start: 11-07-2023 End: 11-07-2023 Clinisync Result Encounter Iveth MCGRATH Work Phone: [facility] External Department Unsolicited Start: 10-18-2023 End: 10-18-2023 ambulatory YOU JAMES Not Available Start: 05-21-2023 End: 05-21-2023 ambulatory IVETH HOOD Not Available Start: 05-30-2022 End: 05-30-[address] YOU RAMIREZ . Facility: Start: 03-20-2022 End: 03-21-[address] YOU RAMIREZ . Facility:[facility] Start: 02-24-2022 End: 02-25-[address] DOCTOR SANCHEZ Facility:[facility] Start: 01-31-2022 End: 02-01-[address] ROB HINES Facility:[facility] Start: 10-15-2021 End: 10-16-[address] YOU RAMIREZ . Facility:[facility] Start: 10-05-2021 End: 10-05-[address] YOU RAMIREZ . Facility:[facility] Start: 03-01-2021 End: 03-01-2021 ambulatory Leandro Robles Other [email or web address] Other Start: 03-01-2021 Encounter for other preprocedural examination Leandro Robles [facility] Start: 03-01-2021 Office outpatient ne w 45 minutes Leandro Robles [facility] Start: 09-09-2020 End: 09-09-2020 Emergency department patient visit [facility] Procedures Date Procedure Procedure Detail Performing Clinician Start: 05-08-2024 US OB BPP W NON-STRESS Generic External Data Provider Start: 05-07-2024 Urnls dip stick/tabl et rgnt non-auto w/o micrscp You James DO Work Phone: Start: 05-01-2024 Urnls dip stick/tabl et rgnt non-auto w/o micrscp You James DO Work Phone: Start: 04-24-2024 Urnls dip stick/tabl et rgnt non-auto w/o micrscp You James DO Work Phone: Start: 04-24-2024 OB BPP W NON-STRESS You James DO [...] ant neoplasm of cervix [facility] Start: 10-05-2026 Screening for malign ant neoplasm of cervix [facility] Start: 05-07-2024 End: 05-07-2024 Patient encounter procedure 05/07/2024 1:30 PM EST Routine [facility] [address] [facility] [id number] You Ramirez, DO [address] [place] [address] [facility] Start: 05-01-2024 End: 05-01-2024 Patient encounter procedure 05/01/2024 9:30 AM EST Routine [facility] [address] [place] [id number] You Ramirez, DO [address] [place] [address] [facility] Start: 04-24-2024 End: 04-24-2024 Patient encounter procedure [facility] Comment on above: Arrived 38 weeks gestation o f ; Third trimester Start: 04-21-2024 End: 04-21-2025 Lipid 1996 panel - Serum or Plasma Lipid panel Lab Routine Screening for lipid disorders Expected: 04/21/2024 (Approximate), Expires: 04/21/2025 [facility] Work Phone: Comment on above: Expected: 04/21/2024 (Approximate), Expires: 04/21/2025 Start: 04-21-2024 End: 04-21-2024 Patient encounter procedure 04/21/2024 10:00 AM EST Office Visit [facility] [address] [place] [address] Valdo Fenton MD [address] [place] [address] (Fax) [facility] Start: 04-17-2024 End: 04-17-2024 Patient encounter procedure 04/17/2024 11:20 AM EST Routine [facility] [address] [place] [id number] Iveth Hood, PA [address] [facility] [address] [place], [place] [id number] [facility] Start: 04-17-2024 End: 04-17-2024 Professional / ancillary services management 04/17/2024 10:30 AM EST Ancillary Procedure [facility] [address] [facility] [place] [address] [facility] Start: 04-09-2024 End: [...] 1:30 PM EST Routine [facility] [address] [place] [address] [place] [phone] You Ramirez DO [address] [facility] [place] [address] [facility] Start: 03-24-2024 End: 03-24-2024 Patient encounter procedure 03/24/2024 11:20 AM EST Routine [facility] [address] [facility] [place] [address] Iveth Hood, PA [address] [facility] [address] [place], [place] [id number] [facility] Start: 03-10-2024 End: 03-10-2025 [...] AM EST Routine [facility] [address] [facility] [place] [phone] You Ramirez, DO [address] [facility] [place] [address] [facility] Start: 02-20-2024 End: 02-19-2025 CBC panel - Blood by Automated count CBC Lab Routine Diabetes mellitus screening Expected: 02/20/2024 (Approximate), Expires: 02/19/2025 [facility] Work Phone: Comment on above: Expected: 02/20/2024 (Approximate), Expires: 02/19/2025 Start: 02-20-2024 End: 02-20-2024 Patient encounter procedure 02/20/2024 11:00 AM EST Routine [facility] [address] [facility] [place] [phone] You Ramirez, DO [address] [facility] [place] [address] [facility] Start: 02-07-2024 End: 02-06-2025 US for US OB SCAN FOR GROWTH Imaging Routine size consistent with dates during in second trimester Expected: 02/07/2024 (Approximate), Expires: 02/06/2025 [facility] Work Phone: Comment on above: Expected: 02/07/2024 (Approximate), Expires: 02/06/2025 Start: 02-07-2024 End: 02-07-2024 Patient encounter procedure 02/07/2024 11:20 AM EST Routine [facility] [address] [facility] [place] [phone] Iveth Hood PA [address] [facility] [address] [place], [place] [id number] [facility] Start: 01-10-2024 End: 01-10-2024 Patient encounter procedure [facility] Comment on above: Arrived Start: 12-17-2023 End: 12-17-2023 Professional / ancillary services management 12/17/2023 8:00 AM EDT Ancillary Procedure [facility] [address] [place] [id number] [facility] Start: 12-13-2023 End: 01-12-2024 Alpha fetoprotein, maternal Alpha fetoprotein, maternal Lab Routine 19 weeks gestation of Expected: 12/13/2023 (Approximate), Expires: 01/12/2024 [facility] Comment on above: Expected: 12/13/2023 (Approximate), Expires: 01/12/2024 Start: 12-13-2023 End: 12-13-2023 Patient encounter procedure 12/13/2023 10:10 AM EDT Routine [facility] [address] [id number] You Ramirez DO [address] [place], [place] [id number] [facility] Start: 11-18-2023 Influenza vaccination Influenza Vacc ine (#1) [facility] Start: 11-15-2023 End: 11-14-2024 Measurement of glucose 1 hour after glucose challenge for glucose tolerance test Glucose tolerance, 1 hour Lab Routine Diabetes mellitus screening Expected: 11/15/2023 (Approximate), Expires: 11/14/2024 [facility] Work Phone: Comment on above: Expected: 11/15/2023 (Approximate), Expires: 11/14/2024 Start: 11-15-2023 End: 11-14-2024 US for US OB ANATOMY SINGLE W US OB CERVICAL LENGTH Imaging Routine Second trimester History of gestational diabetes Screening, , for anatomic survey Expected: 11/15/2023 (Approximate), Expires: 11/14/2024 [facility] Comment on above: Expected: 11/15/2023 (Approximate), Expires: 11/14/2024 Start: 11-15-2023 End: 11-15-2023 Patient encounter procedure 11/15/2023 9:50 AM EDT Routine [facility] [address] [facility] [address] [place] [id number] You Ramirez DO [address] [place] [address] [facility] CBC W Auto Different ial panel - Blood CBC and differential Lab Routine Third trimester Other iron deficiency anemia Ordered: 04/09/2024 [facility] Comment on above: Ordered: 04/09/2024 CHLAMYDIA TRACHOMATI S (GENITO/STI) CHLAMYDIA TRACHOMATIS (GENITO/STI) Lab Routine Exposure to STD Ordered: 12/13/2023 [facility] Comment on above: Ordered: 12/13/2023 Ferritin [Mass/volum e] in Serum or Plasma Ferritin Lab Routine Third trimester Other iron deficiency anemia Ordered: 04/09/2024 [facility] Comment on above: Ordered: 04/09/2024 Hemoglobin A1c/Hemoglobin.total in Blood Hemoglobin A1c Lab Routine Diabetes mellitus screening Ordered: 02/20/2024 [facility] Comment on above: Ordered: 02/20/2024 Neisseria gonorrhoea e DNA [Presence] in Unspecified specimen by JESE with probe detection Neisseria gonorrhea DNA probe, direct Lab Routine Exposure to STD Ordered: 12/13/2023 [facility] Comment on above: Ordered: 12/13/2023 SURESWAB(R) ADVANCED VAGINITIS PLUS, TMA SURESWAB(R) ADVANCED VAGINITIS PLUS, TMA Pathology and Cytology Routine Vaginal discharge Ordered: 12/13/2023 [facility] Work Phone: Comment on above: Ordered: 12/13/2023 Vitamin D 1,25 dihydroxy Vitamin D 1,25 dihydroxy Lab Routine Third trimester Ordered: 04/09/2024 [facility] Comment on above: Ordered: 04/09/2024 Immunizations Immunization Date Immunization Notes Care Provider Sarah cadetsuhas 12-26-2016 hepatitis B vaccine, adult dosage Iveth MCGRATH Work Phone: [facility] 12-26-2016 seasonal influenza, intradermal, preservative free Iveth MCGRATH Work Phone: [facility] 12-26-2016 influenza virus vacc ine, unspecified formulation Iveth MCGRATH Work Phone: [facility] Payers Date Payer Category Payer Private Health Insurance [facility] [id number] 2021 [facility] [id number] 2021 Unknown [employer] [id number] 2021-Present [phone] [id number] [id number]. [id number] 2019 Unknown [id number] 1986 Unknown [id number] 2.16.840.1.589471.3.579.2. 902 1986 Unknown [id number] 2.16.840.1.420159.3.579.2. 59 1986 Unknown [id number] 2.16840.1.210756.3.579.2. 593 1986 Unknown [id number] 2.16840.1.464044.3.579.2. 593 1986 Unknown [id number] 2.16.840.1.237985.3.579.2. 593 1986 Unknown [id number] 2.840.1.114771.3.579.2. 59 1986 Unknown [id number] 2.840.1.097665.3.579.2. 59 1986 Unknown [id number] 2.840.1.668521.3.579.2. 1285 1986 Unknown [id number] 2.840.1.501737.3.579.2. 1285 1986 Unknown [id number] 2.0.1.080552.3.579.2. 1285 1986 Unknown [id number] 2.0.1.736527.3.579.2. 1285 1986 Unknown [id number] 2.0.1.674877.3.579.2. 1285 1986 Unknown [id number] 2.840.1.843896.3.579.2. 1285 1986 Unknown [id number] 840.1.343430.3.579.2. 1258 1986 Unknown [id number] .840.1.407109.3.579.2. 1258 1986 Unknown [id number] 2.840.1.345060.3.579.2. 1258 1986 Unknown [id number] 2.840.1.590382.3.579.2. 1258 1986 Unknown [id number] 2840.1.525645.3.579.2. 1258 1986 Unknown [id number] 2.16.840.1.756513.3.579.2. 1258 1986 Unknown [id number] 2.16.840.1.262911.3.579.2. 1258 1986 Unknown [id number] 2.16.840.1.490243.3.579.2. 1258 1986 Unknown [id number] 2.16.840.1.381929.3.579.2. 1258 1986 Unknown [id number] 2.16.840.1.302308.3.579.2. 1258 1986 Unknown [id number] 2.16.840.1.230965.3.579.2. 1258 1986 Unknown [id number] 2.16.840.1.109651.3.579.2. 1258 1986 Unknown [id number] 2.16.840.1.639029.3.579.2. 1258 1986 Unknown [id number] 2.16.840.1.847845.3.579.2. 1258 1986 Unknown [id number] 2.16.840.1.590064.3.579.2. 1258 1986 Unknown [id number] 2.16.840.1.104181.3.579.2. 1259 1959 Self-pay 1959 Unknown [id number] 1959 Unknown [id number] 1959 Unknown [id number] Unknown [id number] 2.16.840.1.273783.3.579.2. 593 Social History Date Type Detail Facility Start: 10-15-2022 End: 02-05-2023 Sex Assigned At [facility] Start: 02-12-2023 Tobacco smoking status NDIS Ex-smoke r [facility] End: 08-19-2011 History of tobacco use Current smoker [facility] End: 08-19-2011 History of tobacco use Cigarette Smoker [facility] Start: 02-12-2023 Tobacco use and exposure Smoke less tobacco non-user [facility] Start: 01-10-2024 End: 05-07-2024 Alcoholic beverage intake Ex-drinker (finding) [facility] [...] cups/d ay [facility] Start: [facility]11[facility]2023 [facility] Start: 1985 [facility] at [facility] Start: 08-23-2022 Gender identity Identifies as female gender (finding) [facility] Clinical Notes 03-01-2021 to 05-07-2024 Chika Chun LPN - 05/07/2024 1:30 PM Zoltan Massey LPN - 05/01/2024 2:30 PM RAMILA Pompa - 04/24/2024 9:40 AM Smita Fenton MD - 04/21/2024 10:00 AM EST Note Date & Type Note Facility 05-07-2024 History of Presen t illness Narrative Reason for Appointment: Patient ID: Danyell Starr is a 38 y.o. female who presents for No chief complaint on file. Patient presents today for Return OB appointment. MEDICATIONS Current Outpatient Medications Medication Instructions Continuous Glucose Hat Trimmer (Dexcom G7 Hat Trimmer) device 1 each, Does not apply, Every [...] Types: Cigarettes Quit date: 08/19/2011 Years since quittin.7 Smokeless tobacco: Never Substance Use Topics Alcohol [...] nursing note reviewed. Exam conducted with a baggageman present. Vitals: Estimated body mass index is 36.62 kg/m as calculated from the following: Height as of 04/21/24: 5' 7 . Weight as of this encounter: 233 lb 12.8 oz. BP: 120/72 Patient's last menstrual period was 07/28/2023. ASSESSMENT & PLAN ICD-10-CM 1. 40 weeks gestation of Z3A.40 POCT urinalysis dipstick manually resulted 2. Third trimester Z34.93 POCT urinalysis dipstick manually resulted Return OB: Patient presents today for a routine obstetrics appointment. Patient is currently 40w4d . Patient states she is doing well but has complaints of being tired due to current . Patient has verbalizes frequent movement. labor precautions was discussed/given and patient was instructed to perform kick counts three times a day. Pt being induced on 05/11/24- at 0700 consents signed. Orders Placed This Encounter Procedures POCT urinalysis dipstick manually resulted Follow Up: Patient is to return to office in 1 week for routine OB appointment. Documented by Chika Chun LPN on behalf of: You Ramirez DO documented in this encounter [facility] 05-01-2024 History of Presen t illness Narrative Reason for Appointment: Patient ID: Danyell Starr is a 38 y.o. female who presents for Routine Visit Patient presents today for Return OB appointment. MEDICATIONS Current Outpatient Medications Medication Instructions Continuous Glucose Hat Trimmer (Dexcom G7 Hat Trimmer) device 1 each, Does not apply, Every [...] Date Noted Attention deficit hyperactivity disorder (ADHD) ([facility]) 09/15/2022 Cervicalgia 09/15/2022 Chronic fatigue 09/15/2022 Chronic tension-type headache, not intractable 09/15/2022 Generalized anxiety disorder ([facility]) 09/15/2022 HPV (human papilloma virus) infection 09/15/2022 LGSIL on Pap smear of cervix 09/15/2022 Migraine with aura and without status migrainosus, not intractable ([facility]) 09/15/2022 Moderate recurrent major depression ([facility]) 09/15/2022 Other chronic pain 09/15/2022 Radicular pain 09/15/2022 Vitamin D deficiency 09/15/2022 History of miscarriage 06/22/2023 Resolved Ambulatory Problems Diagnosis Date Noted Large breasts 09/15/2022 Missed period 09/15/2022 Positive urine test 06/22/2023 23 weeks gestation of 01/10/2024 32 weeks gestation of 03/10/2024 Third trimester 03/10/2024 34 weeks gestation of 03/25/2024 Past Medical History: Diagnosis Date ADHD (attention deficit hyperactivity disorder) ([facility]) ADHD (attention deficit hyperactivity disorder) ([facility]) Ankle pain, left Anxiety with [...] Diagnosis Date ADHD (attention deficit hyperactivity disorder) ([facility]) ADHD (attention deficit hyperactivity disorder) ([facility]) Ankle pain, left Anxiety with [...] Types: Cigarettes Quit date: 08/19/2011 Years since quittin.7 Smokeless tobacco: Never Substance Use Topics Alcohol [...] nursing note reviewed. Exam conducted with a baggageman present. Vitals: Estimated body mass index is 36.49 kg/m as calculated from the following: Height as of 04/21/24: 5' 7 . Weight as of this encounter: 233 lb. BP: 120/82 Patient's last menstrual period was 07/28/2023. ASSESSMENT & PLAN ICD-10-CM 1. Third trimester Z34.93 POCT urinalysis dipstick manually resulted 2. 39 weeks gestation of Z3A.39 Return OB: Patient presents today for a routine obstetrics appointment. Patient is currently 39w5d . Patient states she is doing well but has complaints of being tired due to current . Patient has verbalizes frequent movement. labor precautions was discussed/given and patient was instructed to perform kick counts three times a day. Continue NST/BPP as directed. Orders Placed This Encounter Procedures POCT urinalysis dipstick manually resulted Follow Up: Patient is to return to office in 1 week for routine OB appointment. Documented by Lexi Massey LPN on behalf of: You Ramirez DO documented in this encounter [facility] 04-24-2024 History of Presen t illness Narrative Reason for Appointment: Patient ID: Danyell Starr is a 38 y.o. female who presents for Routine Visit Patient presents today for Return OB appointment. MEDICATIONS Current Outpatient Medications Medication Instructions Continuous Glucose Hat Trimmer (Dexcom G7 Hat Trimmer) device 1 each, Does not apply, Every [...] Date Noted Attention deficit hyperactivity disorder (ADHD) ([facility]) 09/15/2022 Cervicalgia 09/15/2022 Chronic fatigue 09/15/2022 Chronic tension-type headache, not intractable 09/15/2022 Generalized anxiety disorder (CMS/HCC) 09/15/2022 HPV (human papilloma virus) infection 09/15/2022 LGSIL on Pap smear of cervix 09/15/2022 Migraine with aura and without status migrainosus, not intractable (CMS/HCC) 09/15/2022 Moderate recurrent major depression ([facility]) 09/15/2022 Other chronic pain 09/15/2022 [...] You Ramirez DO documented in this encounter [facility] 04-21-2024 History of Presen t illness Narrative Images from the original note were not included. Patient ID: Danyell Starr is a 38 y.o. female who presents for: Adult Wellness: See Scanned Wellness packet Advance Directive/Living Will: No Health Care Power of Spike Machine Operator: No Review of Systems Constitutional: Negative for [...] Visit Medication Sig Dispense Refill Continuous Glucose Hat Trimmer (Dexcom G7 Hat Trimmer) device 1 each every 14 (fourteen) days [...] through a living will, durable power of environmental attorney for healthcare, or other advanced directives. [...] - Lipid panel documented in this encounter [facility] 04-17-2024 History of Presen t illness Narrative Reason for Appointment: Patient ID: Danyell Starr is a 38 y.o. female who presents for Routine Visit Patient presents today for Return OB appointment. MEDICATIONS Current Outpatient Medications Medication Instructions Continuous Glucose Hat Trimmer (Dexcom G7 Hat Trimmer) device 1 each, Does not apply, Every [...] Date Noted Attention deficit hyperactivity disorder (ADHD) ([facility]) 09/15/2022 Cervicalgia 09/15/2022 Chronic fatigue 09/15/2022 Chronic tension-type headache, not intractable 09/15/2022 Generalized anxiety disorder ([facility]) 09/15/2022 HPV (human papilloma virus) infection 09/15/2022 LGSIL on Pap smear of cervix 09/15/2022 Migraine with aura and without status migrainosus, not intractable ([facility]) 09/15/2022 Moderate recurrent major depression ([facility]) 09/15/2022 Other chronic pain 09/15/2022 Radicular pain 09/15/2022 Vitamin D deficiency 09/15/2022 History of miscarriage 06/22/2023 Resolved Ambulatory Problems Diagnosis Date Noted Large breasts 09/15/2022 Missed period 09/15/2022 Positive urine test 06/22/2023 23 weeks gestation of 01/10/2024 32 weeks gestation of 03/10/2024 Third trimester 03/10/2024 34 weeks gestation of 03/25/2024 Past Medical History: Diagnosis Date ADHD (attention deficit hyperactivity disorder) ([facility]) ADHD (attention deficit hyperactivity disorder) ([facility]) Ankle pain, left Anxiety with [...] Diagnosis Date ADHD (attention deficit hyperactivity disorder) ([facility]) ADHD (attention deficit hyperactivity disorder) ([facility]) Ankle pain, left Anxiety with [...] of: RAMILA Joshi documented in this encounter [facility] 04-09-2024 History of Presen t illness Narrative Reason for Appointment: Patient ID: Danyell Starr is a 38 y.o. female who presents for Routine Visit Patient presents today for Return OB appointment. MEDICATIONS Current Outpatient Medications Medication Instructions Continuous Glucose Hat Trimmer (FreeStyle Adriana 2 [place]) device 1 Device, Does not apply, 4 [...] nursing note reviewed. Exam conducted with a baggageman present. Vitals: Estimated body mass index is [...] You Ramirez DO documented in this encounter [facility] 03-25-2024 History of Presen t illness Narrative Reason for Appointment: Patient ID: Danyell Starr is a 38 y.o. female who presents for No chief complaint on file. Patient presents today for Return OB appointment. MEDICATIONS Current Outpatient Medications Medication Instructions Continuous Glucose Hat Trimmer (FreeStyle Adriana 2 [place]) device 1 Device, Does not apply, 4 [...] Missed period 09/15/2022 Moderate recurrent major depression ([facility]) 09/15/2022 Other chronic pain 09/15/2022 [...] nursing note reviewed. Exam conducted with a baggageman present. Vitals: Estimated body mass index is [...] of: RAMILA Joshi documented in this encounter [facility] 03-10-2024 History of Presen t illness Narrative Reason for Appointment: Patient ID: Danyell Starr is a 38 y.o. female who presents for Routine Visit Patient presents today for Return OB appointment. MEDICATIONS Current Outpatient Medications Medication Instructions Continuous Glucose Hat Trimmer (Notable LimitedStyle Adriana 2 [place]) device 1 Device, Does not apply, 4 times daily MV-Min-Fe Fum-FA-DHA ( 1 PO) Take by mouth. saccharomyces boulardii (FLORASTOR) 250 mg, 2 times daily ALLERGIES Allergies Allergen Reactions Sertraline Other Flat emotions Other Reaction(s): decreased emotional lability PROBLEMS Active Ambulatory Problems Diagnosis Date Noted Attention deficit hyperactivity disorder (ADHD) ([facility]) 09/15/2022 Cervicalgia 09/15/2022 Chronic fatigue 09/15/2022 Chronic tension-type headache, not intractable 09/15/2022 Generalized anxiety disorder ([facility]) 09/15/2022 HPV (human papilloma virus) infection 09/15/2022 Large breasts 09/15/2022 LGSIL on Pap smear of cervix 09/15/2022 Migraine with aura and without status migrainosus, not intractable ([facility]) 09/15/2022 Missed period 09/15/2022 Moderate recurrent major depression ([facility]) 09/15/2022 Other chronic pain 09/15/2022 Radicular pain 09/15/2022 Vitamin D deficiency 09/15/2022 History of miscarriage 06/22/2023 Positive urine test 06/22/2023 23 weeks gestation of 01/10/2024 32 weeks gestation of 03/10/2024 Third trimester 03/10/2024 Resolved Ambulatory Problems Diagnosis Date Noted No Resolved Ambulatory Problems Past Medical History: Diagnosis Date ADHD (attention deficit hyperactivity disorder) ([facility]) ADHD (attention deficit hyperactivity disorder) ([facility]) Ankle pain, left Anxiety with [...] Diagnosis Date ADHD (attention deficit hyperactivity disorder) ([facility]) ADHD (attention deficit hyperactivity disorder) ([facility]) Ankle pain, left Anxiety with [...] You Ramirez DO documented in this encounter [facility] 02-20-2024 History of Presen t illness Narrative Reason for Appointment: Patient ID: Danyell Starr is a 38 y.o. female who presents for Routine Visit Patient presents today for Return OB appointment. MEDICATIONS Current Outpatient Medications Medication Instructions Continuous Glucose Hat Trimmer (Notable LimitedStyle Adriana 2 [place]) device 1 Device, Does not apply, 4 times daily MV-Min-Fe Fum-FA-DHA ( 1 PO) Take by mouth. saccharomyces boulardii (FLORASTOR) 250 mg, 2 times daily ALLERGIES Allergies Allergen Reactions Sertraline Other Flat emotions Other Reaction(s): decreased emotional lability PROBLEMS Active Ambulatory Problems Diagnosis Date Noted Attention deficit hyperactivity disorder (ADHD) ([facility]) 09/15/2022 Cervicalgia 09/15/2022 Chronic fatigue 09/15/2022 Chronic tension-type headache, not intractable 09/15/2022 Generalized anxiety disorder ([facility]) 09/15/2022 HPV (human papilloma virus) infection 09/15/2022 Large breasts 09/15/2022 LGSIL on Pap smear of cervix 09/15/2022 Migraine with aura and without status migrainosus, not intractable ([facility]) 09/15/2022 Missed period 09/15/2022 Moderate recurrent major depression ([facility]) 09/15/2022 Other chronic pain 09/15/2022 Radicular pain 09/15/2022 Vitamin D deficiency 09/15/2022 History of miscarriage 06/22/2023 Positive urine test 06/22/2023 23 weeks gestation of 01/10/2024 Resolved Ambulatory Problems Diagnosis Date Noted No Resolved Ambulatory Problems Past Medical History: Diagnosis Date ADHD (attention deficit hyperactivity disorder) ([facility]) ADHD (attention deficit hyperactivity disorder) ([facility]) Ankle pain, left Anxiety with [...] Diagnosis Date ADHD (attention deficit hyperactivity disorder) ([facility]) ADHD (attention deficit hyperactivity disorder) ([facility]) Ankle pain, left Anxiety with [...] You Ramirez DO documented in this encounter [facility] 02-07-2024 History of Presen t illness Narrative Reason for Appointment: Patient ID: Danyell Starr is a 38 y.o. female who presents for Routine Visit Patient presents today for Return OB appointment. MEDICATIONS Current Outpatient Medications Medication Instructions Continuous Glucose Hat Trimmer (Fublesyle Adriana 2 [place]) device 1 Device, Does not apply, 4 [...] of: RAMILA Joshi documented in this encounter [facility] 01-23-2024 Telephone encount er Note Endocrinology [...] we will have to put her with ASSOCIATE CONSULTING ENGINEER of her choice (since she would be a returning [facility] pt) to establish care. [facility] 01-23-2024 Miscellaneous Notes Formattin g of [...] we will have to put her with ASSOCIATE CONSULTING ENGINEER of her choice (since she would be a returning [facility] pt) to establish care. documented in this encounter [facility] 01-10-2024 History of Presen t illness Narrative Reason for Appointment: Patient ID: Danyell Starr is a 38 y.o. female who presents for Routine Visit Patient presents today for Return OB appointment. MEDICATIONS Current Outpatient Medications Medication Instructions Continuous Glucose Hat Trimmer (FreeStyle Adriana 2 [place]) device 1 Device, Does not apply, 4 [...] Date Noted Attention deficit hyperactivity disorder (ADHD) ([facility]) 09/15/2022 Cervicalgia 09/15/2022 Chronic fatigue 09/15/2022 Chronic tension-type headache, not intractable 09/15/2022 Generalized anxiety disorder ([facility]) 09/15/2022 HPV (human papilloma virus) infection 09/15/2022 Large breasts 09/15/2022 LGSIL on Pap smear of cervix 09/15/2022 Migraine with aura and without status migrainosus, not intractable ([facility]) 09/15/2022 Missed period 09/15/2022 Moderate recurrent major depression ([facility]) 09/15/2022 Other chronic pain 09/15/2022 Radicular pain 09/15/2022 Vitamin D deficiency 09/15/2022 History of miscarriage 06/22/2023 Positive urine test 06/22/2023 Resolved Ambulatory Problems Diagnosis Date Noted No Resolved Ambulatory Problems Past Medical History: Diagnosis Date ADHD (attention deficit hyperactivity disorder) ([facility]) ADHD (attention deficit hyperactivity disorder) ([facility]) Ankle pain, left Anxiety with [...] Diagnosis Date ADHD (attention deficit hyperactivity disorder) ([facility]) ADHD (attention deficit hyperactivity disorder) ([facility]) Ankle pain, left Anxiety with [...] nursing note reviewed. Exam conducted with a baggageman present. Vitals: Estimated body mass index is [...] You Ramirez DO documented in this encounter [facility] 12-13-2023 History of Presen t illness Narrative Reason for Appointment: Patient ID: Danyell Starr is a 38 y.o. female who presents for Routine Visit and STI Screening Patient presents today for Return OB appointment. MEDICATIONS Current Outpatient Medications Medication Instructions Continuous Glucose Hat Trimmer (Notable LimitedStyle Adriana 2 [place]) device 1 Device, Does not apply, 4 times daily ergocalciferol (VITAMIN D2) 1.25 mg, Oral, Weekly MV-Min-Fe Fum-FA-DHA ( 1 PO) Oral saccharomyces boulardii (FLORASTOR) 250 mg, Oral, 2 times daily ALLERGIES Allergies Allergen Reactions Sertraline Other Flat emotions Other Reaction(s): decreased emotional lability PROBLEMS Active Ambulatory Problems Diagnosis Date Noted Attention deficit hyperactivity disorder (ADHD) ([facility]/HCC) 09/15/2022 Cervicalgia 09/15/2022 Chronic fatigue 09/15/2022 Chronic tension-type headache, not intractable 09/15/2022 Generalized anxiety disorder (CMS/HCC) 09/15/2022 HPV (human papilloma virus) infection 09/15/2022 Large breasts 09/15/2022 LGSIL on Pap smear of cervix 09/15/2022 Migraine with aura and without status migrainosus, not intractable (CMS/HCC) 09/15/2022 Missed period 09/15/2022 Moderate recurrent major depression (HCC) ([facility]) 09/15/2022 Other chronic pain 09/15/2022 [...] nursing note reviewed. Exam conducted with a baggageman present. Vitals: Estimated body mass index is [...] You Ramirez DO documented in this encounter [facility] 11-15-2023 History of Presen t illness [...] Allergies) Daughter Savannah ADD / ADHD Son Eilas Other (Seasonal Allergies) Son Elias Hypertension Other [...] or undercooked meat, and stay away from [facility]. Patient has been consulted regarding any [...] Iveth Hood PA-C documented in this encounter [facility] 03-01-2021 Evaluation note Encounter Date Diagnosis Assessment Notes Feb, Closed fracture of capitellum of left humerus with routine healing (ICD-10 - S42.452D) MRI reviewed with patient as healing fractures within the elbow. Discussed that her lacking range of motion may be a fpc condition, with or without surgical intervention. Instructed [...] M24.022) Feb, Pre-op exam (ICD-10 - Z01.818) [employer] [facility] Other Evaluation note* Diagnosis Second trimester state, [...] HealthcareEvaluation note* Diagnosis Third trimester state, incidental 39 weeks gestation of documented [facility]* Diagnosis 40 weeks gestation of Third trimester state, incidental documented [facility] encounter [facility] general Narrative - Reported* Type Description Date Medical History ADHD [employer] Other Summary Purpose Family History No Family [...] DATE CREATED AUTHOR AUTHOR'S ORGANIZ ATION 10/06/2021 [facility] DATE CREATED AUTHOR AUTHOR'S ORGANIZ ATION 06/08/2022 [facility] DATE CREATED AUTHOR AUTHOR'S ORGANIZ ATION 04/27/2024 [facility] DATE CREATED AUTHOR AUTHOR'S ORGANIZ ATION 05/09/2024 [facility] d[facility] Specialists EPIC REASON FOR VISIT (unrecogniz ed section and content) Reason Comments Routine Visit Reason Comments Routine Visit STI Screening Reason Comments Annual Exam Care Teams (unrecognized sec tion and content) Mattress Finisher Relationship Specialty Start Date End Date Emily Alfaro DO [address] [place] [address] PCP - General Family Medicine 09/14/22 Mattress Finisher Relationship Specialty Start Date End Date Emily Alfaro DO [address] [place] [address] PCP - General Family Medicine 09/14/22 Mattress Finisher Relationship Specialty Start Date End Date Emily Alfaro DO [address] [place] [address] PCP - General Family Medicine 09/14/22 Mattress Finisher Relationship Specialty Start Date End Date Emily Alfaro DO [address] [place] [address] PCP - General Family Medicine 09/14/22 Mattress Finisher Relationship Specialty Start Date End Date Emily Alfaro DO [address] [place] [address] PCP - General Family Medicine 09/14/22 Mattress Finisher Relationship Specialty Start Date End Date Emily Alfaro DO [address] [facility] [place] [address] PCP - General Family Medicine 09/14/22 Mattress Finisher Relationship Specialty Start Date End Date Emily Alfaro DO [address] [place] [facility] [place] [address] PCP - General Family Medicine 09/14/22 Mattress Finisher Relationship Specialty Start Date End Date Emily Alfaro DO [address] [place] [facility] [place] [address] PCP - General Family Medicine 09/14/22 Mattress Finisher Relationship Specialty Start Date End Date Emily Alfaro [address] [place] [facility] [place] [address] PCP - General Family Medicine 09/14/22 Mattress Finisher Relationship Specialty Start Date End Date Emily Alfaro [address] [place] [facility] [place] [address] PCP - General Family Medicine 09/14/22 Mattress Finisher Relationship Specialty Start Date End Date Emily AlfaroDO [address] [place] [facility] [place] [address] PCP - General Family Medicine 09/14/22 Mattress Finisher Relationship Specialty Start Date End Date Emily Alfaro DO [address] [facility] [place] [address] PCP - General Family Medicine 09/14/22 Mattress Finisher Relationship Specialty Start Date End Date ElizabethEmily LorenDO [address] [place] [address] PCP - General Family Medicine 09/14/22 Mattress Finisher Relationship Specialty Start Date End Date Emily Alfaro DO [address] [place] [address] PCP - General Family Medicine 09/14/22 Mattress Finisher Relationship Specialty Start Date End Date Emily Alfaro DO [address] [place] [address] PCP - General Family Medicine 09/14/22 Mattress Finisher Relationship Specialty Start Date End Date Emily Alfaro DO [address] [place] [address] PCP - General Family Medicine 09/14/22 Mattress Finisher Relationship Specialty Start Date End Date Emily Alfaro DO [address] [place] [address] PCP - General Family Medicine 09/14/22 FOR [...] BE BASED ON THE PRIMARY CLINICAL RECORDS. [employer] provides no warranty or guarantee of the accuracy or completeness of information in this document.
[2024-05-11 20:29] VITALS: BP 128/72; PULSE 123
[2024-05-11 21:22] LABS: Bilirubin Urine NEGATIVE (NEGATIVE); Blood Urine NEGATIVE (NEGATIVE); Clarity Urine CLEAR (CLEAR); Color Urine YELLOW (YELLOW); Glucose Urine UA NEGATIVE (NEGATIVE); Ketones Urine 15 mg/dL (NEGATIVE); Leukocyte Esterase Urine NEGATIVE (NEGATIVE); Nitrite Urine NEGATIVE (NEGATIVE); Protein Urine 30 mg/dL (NEG/TRACE); Specific Gravity Urine 1.025 (1.005-1.025); pH Urine 5.5 (5.0-9.0)
[2024-05-11 21:23] LABS: Urine Microscopic Indicated YES
[2024-05-11 21:29] LABS: Amorphous Sediment Urine MODERATE; Bacteria Urine LARGE #/HPF (NONE SEEN); Cast Seen? NONE SEEN #/LPF (NONE SEEN); Crystals Seen? Seen #/HPF (None Seen); Mucus Urine NONE SEEN (NONE SEEN); RBC Urine 0-2 #/HPF (0-2); Squamous Epithelial Cell Urine FEW #/LPF (NONE/RARE); Urine Culture Indicated YES-LC
[2024-05-11 21:30] LABS: Influenza Virus A Antigen Negative; Influenza Virus B Antigen Negative; Internal Control Within Normal Limits; Respiratory Syncytial Virus Not Detected (NOT DETECTE); SARS-CoV-2 Ag NEGATIVE (NEGATIVE)
[2024-05-11] MEDS: 0.9 % SODIUM CHLORIDE 1,000 ML 1000 ML IV (21:48)
[2024-05-11 21:57] LABS: Basophils Percent Auto 0.3 % (0.2-2.0); Eosinophils Percent Auto 0.4 % (0.9-7.0); Hematocrit 34.9 % (36.0-48.0); Hemoglobin 11.4 g/dL (12.0-16.0); Immature Granulocytes Abs Auto 0.03 10^3/uL (0.00-0.03); Immature Granulocytes Pct Auto 0.4 % (0.0-0.5); Lymphocytes Absolute Auto 0.6 10^3/uL (1.2-3.8); Lymphocytes Percent Auto 8.4 % (20.5-60.0); Mean Corpuscular HGB Conc 32.7 g/dL (29.9-35.2); Mean Corpuscular Hemoglobin 26.8 pg (26.7-34.0); Mean Corpuscular Volume 82.1 fL (81.0-99.0); Mean Platelet Volume 11.4 fL (9.5-13.5); Monocytes Absolute Auto 0.4 10^3/uL (0.3-0.8); Neutrophils Absolute Auto 6.3 10^3/uL (1.4-6.5); Neutrophils Percent Auto 85.5 % (43.0-75.0); Platelet Count 195 10^3/uL (150-450); Red Blood Count 4.25 10^6/uL (4.20-5.40); Red Cell Distribution Width 14.6 % (11.0-15.0); White Blood Count 7.3 10^3/uL (4.0-11.0)
[2024-05-11 22:11] LABS: Alanine Aminotransferase 75 U/L (14-59); Anion Gap 13.4; Aspartate Amino Transferase 39 U/L (15-37); BUN Creatinine Ratio 13.8; Calcium 8.7 mg/dL (8.5-10.1); Carbon Dioxide 20.6 mmol/L (21.0-32.0); Chloride 106 mmol/L (98-107); Estimated GFR (African America >60 (>=60 mL/min/1.73m^2); Estimated GFR (Non-African Ame >60 (>=60 mL/min/1.73m^2); Glucose 88 mg/dL (74-106); Sodium 136 mmol/L (136-145)
[2024-05-11 22:18] VITALS: TEMP 36.4
[2024-05-11] MEDS: 0.9 % SODIUM CHLORIDE 1,000 ML 150 ML IV (23:13)
[2024-05-11 23:18] VITALS: PULSE 88; O2SAT 98
[2024-05-11] MEDS: ALBUTEROL SULFATE 2.5 MG/3 ML VIAL NEB IH (23:18)
[2024-05-11 23:26] VITALS: PULSE 107; O2SAT 96
[2024-05-11] MEDS: AZITHROMYCIN 500 MG in 0.9 % SODIUM CHLORIDE 250 ML 250 MG IV (23:56)
[2024-05-12] VITALS (45 sets, daily range): BP systolic 76–111; BP diastolic 41–78; PULSE 73–97; TEMP 36.2–36.7; O2SAT 92–97
[2024-05-12] MEDS: ACETAMINOPHEN 500 MG TABLET 1000 MG PO ×2 (00:28→20:05)
[2024-05-12] MEDS: 0.9 % SODIUM CHLORIDE 1,000 ML 150 ML IV (06:30)
[2024-05-12 07:12] LABS: Basophils Percent Auto 0.7 % (0.2-2.0); Eosinophils Percent Auto 0.4 % (0.9-7.0); Hematocrit 31.5 % (36.0-48.0); Hemoglobin 10.3 g/dL (12.0-16.0); Immature Granulocytes Abs Auto 0.01 10^3/uL (0.00-0.03); Immature Granulocytes Pct Auto 0.2 % (0.0-0.5); Lymphocytes Absolute Auto 0.8 10^3/uL (1.2-3.8); Lymphocytes Percent Auto 16.6 % (20.5-60.0); Mean Corpuscular HGB Conc 32.7 g/dL (29.9-35.2); Mean Corpuscular Hemoglobin 26.9 pg (26.7-34.0); Mean Corpuscular Volume 82.2 fL (81.0-99.0); Mean Platelet Volume 11.5 fL (9.5-13.5); Monocytes Absolute Auto 0.4 10^3/uL (0.3-0.8); Monocytes Percent Auto 7.9 % (1.7-12.0); Neutrophils Absolute Auto 3.4 10^3/uL (1.4-6.5); Neutrophils Percent Auto 74.2 % (43.0-75.0); Platelet Count 173 10^3/uL (150-450); Red Blood Count 3.83 10^6/uL (4.20-5.40); Red Cell Distribution Width 14.7 % (11.0-15.0); White Blood Count 4.6 10^3/uL (4.0-11.0)
[2024-05-12 07:29] LABS: Alanine Aminotransferase 65 U/L (14-59); Anion Gap 15.5; Aspartate Amino Transferase 35 U/L (15-37); BUN Creatinine Ratio 13.5; Calcium 7.8 mg/dL (8.5-10.1); Carbon Dioxide 19.1 mmol/L (21.0-32.0); Chloride 108 mmol/L (98-107); Estimated GFR (African America >60 (>=60 mL/min/1.73m^2); Estimated GFR (Non-African Ame >60 (>=60 mL/min/1.73m^2); Glucose 87 mg/dL (74-106); Potassium 3.6 mmol/L (3.5-5.1); Sodium 139 mmol/L (136-145)
[2024-05-12 09:10] LABS: Amphetamine Screen Urine NEGATIVE (NEGATIVE); Barbiturates Screen Urine NEGATIVE (NEGATIVE); Benzodiazepines Screen Urine NEGATIVE (NEGATIVE); Buprenorphine Screen Urine NEGATIVE (NEGATIVE); Cannabinoid Screen Urine NEGATIVE (NEGATIVE); Cocaine Screen Urine NEGATIVE (NEGATIVE); Methadone Screen Urine NEGATIVE (NEGATIVE); Methamphetamines Screen Urine NEGATIVE (NEGATIVE); Opiate Screen Urine NEGATIVE (NEGATIVE); Oxycodone Screen Urine NEGATIVE (NEGATIVE); Phencyclidine Screen Urine NEGATIVE (NEGATIVE); Tricyclic Antidepressant Urine NEGATIVE (NEGATIVE)
[2024-05-12] MEDS: 0.9 % SODIUM CHLORIDE 1,000 ML 1000 ML IV ×2 (11:07→12:02)
[2024-05-12] MEDS: CITRIC ACID/SODIUM CITRATE 30 ML SOLUTION ORACIT SHOHL'S SOLN PO (12:00)
--- NOTE | 2024-05-12 12:02 | P.OBHP_ITS ---
OB - H&P: HPI History of Present Illness Chief complaint: SOB : 5 Para: 3 Gestational age based on last menstrual period: 41 2/7wks Comments: 38 yo at 41 2/7wks presents to l&d with complaints of flu like symptoms, pt improved over night, labs reviewed, discuss delivery of dt post dates, pt states due to size of baby that she does not want a trial of labor and would like a section, risk and benefits of both reviewed, in agreement to move ahead with c/s dt suspected macrosomia History of Present Dating criteria: LMP confirmed by 1st trimester US care: good care Ultrasounds: normal 1st trimester US and normal mid trimester US Medical complications OB: none Labs Blood type: O (+) positive Rubella: immune RPR/VDLR: nonreactive GBS status: negative HBsAG: negative Review of Systems ROS Status of ROS: 10 or more systems reviewed and unremarkable except as noted in history and below PFSH PFSH Family History Father Family history of hypertension Family history of diabetes mellitus Mother Family history of hypertension Family history of cancer Grandfather Family history of hypertension Social History Within the past year, how often did you have a drink containing alcohol: never Within the past year, how often did you have six or more drinks on one occasion: never Score interpretation: A score less than 3 is consistent with normal alcohol consumption. Smoking status: Former smoker Non-prescribed substance use: denies use Highest level of school completed/degree received: some college, no degree Are you now , , , , never or living with a partner: Little interest or pleasure in doing things: not at all Feeling down, depressed, or hopeless: not at all Feel stressed/tense/nervous/anxious/difficulty sleeping: not at all Do you think of yourself as: straight/heterosexual Gender Identity: female Meds Home Medications and Allergies Home Medications ?Medication ?Instructions ?Recorded ?Confirmed ?Type vits,calcium 21-iron fum 1 tab PO DAILY 09/16/22 10/12/22 History 14 mg iron-folic acid 400 mcg tablet ( Complete) Allergies Allergy/AdvReac Type Severity Reaction Status Date / Time sertraline (From Zoloft) AdvReac Mild Verified 09/16/22 12:11 Exam Constitutional Vital Signs, click to edit/add: Last Vital Signs Temp 97.5 F L 05/11/24 22:18 Pulse 77 05/12/24 07:57 Resp 20 05/11/24 23:26 BP 111/68 05/12/24 07:57 Pulse Ox 96 05/11/24 23:26 O2 Del Method Room Air 05/11/24 23:26 Documenting provider has reviewed patient's vital signs: yes Common normals: no apparent distress Respiratory Common normals: normal respiratory effort and clear to auscultation bilaterally Cardio Common normals: regular rate and regular rhythm GI Common normals: Normal to inspection, nondistended, normoactive bowel sounds present Extremity Common normals: no clubbing, cyanosis or edema and no calf tenderness Results Labs Labs: Short CBC 05/11/24 05/12/24 Range/Units 21:45 06:56 WBC 7.3 4.6 (4.0-11.0) 10^3/uL Hgb 11.4 L 10.3 L (12.0-16.0) g/dL Hct 34.9 L 31.5 L (36.0-48.0) % Plt Count 195 173 (150-450) 10^3/uL BMP 05/11/24 05/12/24 21:45 06:56 Sodium 136 139 Potassium 4.0 3.6 Chloride 106 108 H Carbon Dioxide 20.6 L 19.1 L BUN 9.0 7.0 Creatinine 0.65 0.52 L Glucose 88 87 Calcium 8.7 7.8 L Liver Function 05/11/24 05/12/24 Range/Units 21:45 06:56 AST 39 H 35 (15-37) U/L ALT 75 H 65 H (14-59) U/L Urine 05/11/24 Range/Units 20:45 Urine Color Yellow (YELLOW) Urine Clarity Clear (CLEAR) Urine pH 5.5 (5.0-9.0) Ur Specific [place] 1.025 (1.005-1.025) Urine Protein 30 A (NEG/TRACE) mg/dL Urine Glucose (UA) Negative (NEGATIVE) mg/dL OB - A/P Assessment and Plan (1) Intrauterine : (2) macrosomia: (3) Post-dates : Plan iup at 41 2/7wks, suspected macrosomina-will perform c/s, mmc reviewed, procedure reviewed, will proceed to or, iv hydration, cont iv abx, cont efm
[2024-05-12] MEDS: FAMOTIDINE/PF 20 MG/2 ML VIAL IV (12:03)
[2024-05-12] MEDS: CEFAZOLIN SODIUM/DEXTROSE,ISO 2 GM/50 ML PIGGYBACK IV ×2 (12:06→18:57)
[2024-05-12] MEDS: LACTATED RINGER'S SOLUTION 1,000 ML 50 ML IV ×2 (12:15→12:58)
--- NOTE | 2024-05-12 13:05 | P.ON_ITS ---
Brief Operative Note Date of procedure: 05/12/24 Pre-op diagnosis general: iup at 41 2/7wks, macrosomia Post-op diagnosis: same as pre-op Procedure: NAME OF PROCEDURE: [ section ] PROCEDURE: Patient was taken back to the Operating Room where she was given a spinal anesthesia with Duramorph without difficulty. She was prepped and draped in the normal sterile fashion. A Pfannenstiel skin incision was then made 2 cm above the symphysis pubis and carried down to underlying rectus fascia using a Bovie. The fascia was incised in the midline and extended laterally using Marcos scissors. Two Ricarda clamps were placed on the superior aspect of the fascia and dissected off the underlying rectus muscles. The same was performed on the inferior aspect as well. The muscles were then in the midline. Peritoneum was identified and entered bluntly. The peritoneum was then extended superiorly and inferiorly with good visualization of the bladder. The bladder blade was inserted. A low transverse incision was made on the patient's uterus and extended laterally digitally. The was then delivered atraumatically after the bladder blade was removed in the cephalic position. The cord was clamped and cut. Cord blood was obtained. The was handed off to awaiting team. The patient's placenta was spontaneously delivered. The uterus was then exteriorized. The uterus was cleared of all clots and debris. The bladder blade was reinserted. The patient's uterine incision was closed using #0 Vicryl in a running lock fashion. Excellent hemostasis was assured. The uterus was then returned to the patient's abdomen. The patient's abdomen was copiously irrigated using warm saline. Peritoneal gutters were cleared of all clots and debris. Again excellent hemostasis was assured. The patient's peritoneum was closed using 3-0 Vicryl in a running fashion. The patient's fascia was closed using #0 Vicryl in a running fashion. The patient's skin was closed using 4-0 Vicryl subcuticularly. The patient tolerated the procedure well. Sponge, lap, and needle counts were correct x2. The patient was taken to the Recovery Room in stable condition. Anesthesia: spinal Surgeon: You Ramirez Entry Level Lab Technician: Nia Olvera Estimated blood loss (mL): 575 Pathology: none sent Condition: stable Disposition: PACU Urinary Catheter Management Urinary Catheter Management Urethral: Cath placed during this visit: no
--- NOTE | 2024-05-12 13:07 | PM.OBPRCCS ---
Procedure Pre-op/Post-op diagnoses: Pre-Op/Post-Op Diagnoses Operation Date: 05/12/24 12:00 <No data on this case meets the specified criteria> Procedure: Procedures Operation Date: 05/12/24 12:00 Actual Procedure Side Surgeon p with delivery of viable baby girl Not Applicable You Ramirez DO [employer] Technical Director: Nia Olvera Estimated blood loss (mL): 575 Disposition: PACU Anesthesia type: Spinal
[2024-05-12] MEDS: OXYTOCIN/0.9 % SODIUM CHLORIDE 20 UNITS/1,000 ML PLAST..BAG 125 UNIT IV (13:53)
[2024-05-12] MEDS: KETOROLAC TROMETHAMINE 30 MG/ML VIAL IVP (18:53)
[2024-05-13] VITALS (13 sets, daily range): BP systolic 84–125; BP diastolic 51–63; PULSE 67–77; TEMP 36.3–36.8; O2SAT 97
[2024-05-13] MEDS: ENOXAPARIN SODIUM 40 MG/0.4 ML SYRINGE SUBQ (00:35)
[2024-05-13] MEDS: AZITHROMYCIN 500 MG in 0.9 % SODIUM CHLORIDE 250 ML 250 MG IV (00:35)
[2024-05-13] MEDS: KETOROLAC TROMETHAMINE 30 MG/ML VIAL IVP ×2 (00:35→06:12)
[2024-05-13] MEDS: ACETAMINOPHEN 500 MG TABLET 1000 MG PO ×3 (04:05→20:47)
[2024-05-13 06:29] LABS: Basophils Percent Auto 0.1 % (0.2-2.0); Hematocrit 25.8 % (36.0-48.0); Hemoglobin 8.3 g/dL (12.0-16.0); Immature Granulocytes Abs Auto 0.03 10^3/uL (0.00-0.03); Immature Granulocytes Pct Auto 0.3 % (0.0-0.5); Lymphocytes Absolute Auto 1.3 10^3/uL (1.2-3.8); Mean Corpuscular HGB Conc 32.2 g/dL (29.9-35.2); Mean Corpuscular Hemoglobin 27.1 pg (26.7-34.0); Mean Corpuscular Volume 84.3 fL (81.0-99.0); Mean Platelet Volume 11.4 fL (9.5-13.5); Monocytes Absolute Auto 0.4 10^3/uL (0.3-0.8); Monocytes Percent Auto 3.9 % (1.7-12.0); Neutrophils Absolute Auto 7.3 10^3/uL (1.4-6.5); Neutrophils Percent Auto 81.7 % (43.0-75.0); Platelet Count 164 10^3/uL (150-450); Red Blood Count 3.06 10^6/uL (4.20-5.40); Red Cell Distribution Width 15.1 % (11.0-15.0)
[2024-05-13] MEDS: DOCUSATE SODIUM 100 MG CAPSULE PO ×2 (08:20→20:47)
--- NOTE | 2024-05-13 08:52 | PM.OBPN ---
OB - PN: Subj Subjective Patient comments: no complaints [place] status: doing well [place] feeding status: exclusively Exam Constitutional Vital Signs, click to edit/add: Last Vital Signs Temp 97.8 F 05/13/24 04:29 Pulse 73 05/13/24 08:17 Resp 16 05/13/24 04:29 BP 107/58 05/13/24 08:17 Pulse Ox 97 05/12/24 16:00 O2 Del Method Room Air 05/13/24 04:29 Documenting provider has reviewed patient's vital signs: yes Common normals: no apparent distress, average body habitus, oriented x3, no limitations, healthy appearing, alert and well nourished General appearance: cooperative, comfortable and well kempt Orientation/consciousness: Yes awake, Yes oriented to person, Yes oriented to place and Yes oriented to time HENMT Common normals: normocephalic Eye Common normals: EOMs intact bilaterally General eye: normal appearance of both eyes Neck & C-Spine Common normals: full ROM Lymph Lymphatic: no lymphadenopathy noted Chest Common normals: inspection of chest normal Respiratory Common normals: normal respiratory effort, no retractions, no use of accessory muscles, clear to auscultation bilaterally and percussion normal Effort & inspection: able to speak in complete sentences Auscultation: clear to auscultation bilaterally Cardio Common normals: regular rate and regular rhythm Rate: regular rate Rhythm: regular rhythm GI Common normals: Normal to inspection, nondistended, normoactive bowel sounds present Auscultation: normoactive bowel sounds Palpation: soft Common normals: no CVA tenderness Back & Pelvis Common normals: no CVA tenderness Extremity Common normals: normal to inspection Neuro Common normals: oriented x3 Sensorium/orientation: awake, alert, oriented to person, oriented to place and oriented to time Psych Common normals: mental status grossly normal, thought process normal, cooperative, affect normal, speech normal, activity/motor behavior normal, denies hallucinations, denies homicidal ideation and denies suicidal ideation Results Labs Labs: Short CBC 05/13/24 Range/Units 06:10 WBC 9.0 (4.0-11.0) 10^3/uL Hgb 8.3 L (12.0-16.0) g/dL Hct 25.8 L (36.0-48.0) % Plt Count 164 (150-450) 10^3/uL Urinary Catheter Management Urinary Catheter Management Urethral: Cath placed during this visit: yes, but has since been removed by the nurse Insertion date: 05/12/24 Insertion time: 12:20 Removal date: 05/13/24 Removal time: 06:30 OB - PN: A/P Assessment and Plan (1) Intrauterine : (2) macrosomia: (3) Post-dates : Plan - day: 1 Plan: routine postop care Time Spent with Patient Time: Total time spent is greater than 50% in coordination of care (as documented) at patient's floor/unit and/or counseling patient: Total time spent with greater than 50% in coordination of care (as documented) at patient's floor/unit and/or counseling patient: less than 15 minutes
[2024-05-13] MEDS: IBUPROFEN 400 MG TABLET 800 MG PO ×2 (12:58→19:03)
[2024-05-14] MEDS: ENOXAPARIN SODIUM 40 MG/0.4 ML SYRINGE SUBQ (00:01)
[2024-05-14] MEDS: IBUPROFEN 400 MG TABLET 800 MG PO ×3 (01:04→13:31)
[2024-05-14] MEDS: ACETAMINOPHEN 500 MG TABLET 1000 MG PO ×2 (04:08→12:52)
--- NOTE | 2024-05-14 07:41 | PM.OBPN ---
OB - PN: Subj Subjective Patient comments: no complaints and pain well controlled [place] status: doing well Exam Constitutional Vital Signs, click to edit/add: Last Vital Signs Temp 97.4 F L 05/13/24 23:50 Pulse 76 05/13/24 23:59 Resp 18 05/13/24 23:50 BP 125/63 05/13/24 23:59 Pulse Ox 97 05/13/24 18:15 O2 Del Method Room Air 05/13/24 23:50 Documenting provider has reviewed patient's vital signs: yes Common normals: no apparent distress Respiratory Common normals: clear to auscultation bilaterally Cardio Common normals: regular rate and regular rhythm GI Common normals: Normal to inspection, nondistended, normoactive bowel sounds present Extremity Common normals: no clubbing, cyanosis or edema and no calf tenderness Urinary Catheter Management Urinary Catheter Management Urethral: Cath placed during this visit: yes, but has since been removed by the nurse Insertion date: 05/12/24 Insertion time: 12:20 Removal date: 05/13/24 Removal time: 06:30 OB - PN: A/P Assessment and Plan (1) Intrauterine : (2) macrosomia: (3) Post-dates : Plan - day: 2 Plan: routine postop care, discharge home and other (fu 1wk) Time Spent with Patient Time: Total time spent is greater than 50% in coordination of care (as documented) at patient's floor/unit and/or counseling patient: Total time spent with greater than 50% in coordination of care (as documented) at patient's floor/unit and/or counseling patient: less than 15 minutes
[2024-05-14] MEDS: DOCUSATE SODIUM 100 MG CAPSULE PO (08:36)
[2024-05-14 08:38] VITALS: BP 140/62; PULSE 83
[2024-05-14 08:40] VITALS: O2SAT 97
[2024-05-14 09:12] VITALS: PULSE 84; TEMP 36.8
[2024-05-14] MEDS: GUAIFENESIN 200 MG/DEXTROMETHORPHAN 20 MG 10 ML UNIT DOSE CUP PO (09:51)
[2024-05-14] MEDS: ALBUTEROL SULFATE 2.5 MG/3 ML VIAL NEB IH (10:27)
[2024-05-14 13:31] VITALS: BP 115/66; PULSE 94
== END 2024-05-14 14:00 | disposition home or self-care (01) | DRG 788 ==
PROVIDERS: Obstetrics & Gynecology Gynecology; Admitting Provider Obstetrics & Gynecology; PCP Family Medicine; Visit Provider Obstetrics & Gynecology
PROC: 10D00Z1 Extraction of Products of Conception, Low, Open Approach (ICD-10-PCS; CPT 59514; principal; 2024-05-12 12:00)
DX: O36.63X0 Maternal care for excessive fetal growth, third trimester, not applicable or unspecified (principal); O48.0 Post-term pregnancy; Z3A.41 41 weeks gestation of pregnancy; Z37.0 Single live birth; Z87.891 Personal history of nicotine dependence; O99.513 Diseases of the respiratory system complicating pregnancy, third trimester; J06.9 Acute upper respiratory infection, unspecified
CPT/HCPCS: 36415; 64488; 71046; 80048; 80307; 81001; 82565; 84450; 84460; 85025; 86850; 86900; 86901; 87086; 87420; 87804; 87811; 88307; 94640; 94667; 94668; 96365; 96366; G0378; J0131; J0456; J0665; J0690; J1100; J1650; J1885; J2274; J2371; J2405; J2590; J3490